=== PATIENT | female | born 1935 | race Caucasian/White ===

== ENCOUNTER → 2016-09-03 | Outpatient (CLI) | payer BC ==
[~2016-09-03] MED LIST: ACET-1256 PO; ALBU18002 INH; ALBU1AER9 INH; ALLO100T PO; ALLO1TAB51 PO; ALPPOPS5 TOP; AMX500 PO; ASPI-232 PO; CALC-393 PO; CALCTAB5 PO; CPR250 PO; CRG3125 PO; DVN80 PO; ESCI10TA17 PO; FERR1TAB23 PO; FRS/40 PO; HYDR-5688 PO; INSU1.2I SQ; LISI-461 PO; LISI40TA PO; MULT-506 PO; NRN600 PO; NVLGI/PEN SQ; OSTEO BI FLEX PO; OXGN; PANT40TA PO; SILD1TAB25 PO; SIMV40TA2 PO; SPRIN/30 INH; SYMIN160 INH; TIOTCAP INH; TRAM-10 PO; ZCR40 PO
[2016-09-04 06:14] LABS: ESTIMATED AVERAGE GLUCOSE 151 mg/dl; HA1C FLAG Normal (Normal)
== END | disposition home or self-care (01) ==
LOC: C.LAB1850 15:11
PROVIDERS: ATTEND Nurse Practitioner Family
DX: E11.29 Type 2 diabetes mellitus with other diabetic kidney complication (principal)

== ENCOUNTER → 2016-12-02 | Outpatient (CLI) | payer BC ==
[~2016-12-02] MED LIST changes: +CIPR250T5 PO; -CPR250 PO
[2016-12-02 14:35] LABS: ESTIMATED AVERAGE GLUCOSE 140 mg/dl; HA1C FLAG Normal (Normal)
== END | disposition home or self-care (01) ==
LOC: C.LAB1850 12:34
PROVIDERS: ATTEND Nurse Practitioner Family
DX: E11.3299 Type 2 diabetes mellitus with mild nonproliferative diabetic retinopathy without macular edema, unspecified eye (principal)

== ENCOUNTER → 2016-12-25 | Outpatient (CLI) | payer BC | END | disposition home or self-care (01) | LOC: C.MAMM 10:52 | PROVIDERS: ATTEND Internal Medicine | DX: S32.000A Wedge compression fracture of unspecified lumbar vertebra, initial encounter for closed fracture (principal); X58.XXXA Exposure to other specified factors, initial encounter ==

== ENCOUNTER → 2017-02-09 | Outpatient (CLI) | payer BC ==
[~2017-02-09] MED LIST changes: -ALBU18002 INH; -ALLO100T PO; -CALC-393 PO; -CIPR250T5 PO; -DVN80 PO; -LISI40TA PO; +OSTEO BI FLEX; -OSTEO BI FLEX PO; -SIMV40TA2 PO; -SPRIN/30 INH; -TRAM-10 PO
[2017-02-09 12:14] LABS: MEAN CELL VOLUME 95.9 fL (80-100); MEAN CORPUSCULAR HEMOGLOBIN 30.3 pg (25-34); MEAN CORPUSCULAR HGB CONC 31.6 g/dl (32-36); MEAN PLATELET VOLUME 10.7 fL (7.4-10.4); PLATELET COUNT 178 K/uL (130-400); RED BLOOD COUNT 3.86 M/uL (4.2-5.4); WHITE BLOOD COUNT 8.94 K/uL (4.8-10.8)
[2017-02-09 12:26] LABS: URINE APPEARANCE TURBID (CLEAR); URINE BILIRUBIN NEG (NEG); URINE COLOR YELLOW; URINE EPITHELIAL CELL AUTO >30 /lpf (0-5); URINE NITRITE NEG (NEG); URINE PH 7.5 (4.5-7.5); URINE SPECIFIC GRAVITY 1.014 (1.000-1.030); UROBILINOGEN NEG (NEG)
[2017-02-09 12:40] LABS: MANUAL MICROSCOPIC REQUIRED? NO; REVIEW REQ? YES
[2017-02-09 12:44] LABS: URINE PROTIEN/CREAT RATIO 0.3 (0-0.2); URINE TOTAL PROTEIN 21.1 mg/dl (0-11.9)
[2017-02-09 13:51] LABS: ALT/SGPT 31 U/L (12-78); BLOOD UREA NITROGEN 28 mg/dl (7-18); BUN/CREATININE RATIO 16.4 (10-20); CALCIUM 9.3 mg/dl (8.5-10.1); CARBON DIOXIDE 27 mmol/L (21-32); CHLORIDE 106 mmol/L (98-107); GLUCOSE 146 mg/dl (70-99); POTASSIUM 4.5 mmol/L (3.5-5.1); SODIUM 139 mmol/L (136-145)
[2017-02-09 13:54] LABS: ALKALINE PHOSPHATASE 77 U/L (45-117); FERRITIN 809.6 ng/ml (8.0-388.0); TOTAL IRON BINDING CAPACITY 299 mcg/dl (250-450)
[2017-02-09 13:55] LABS: AST/SGOT 19 U/L (15-37)
== END | disposition home or self-care (01) ==
LOC: C.LAB1850 10:50
PROVIDERS: ATTEND Internal Medicine Nephrology
DX: I12.9 Hypertensive chronic kidney disease with stage 1 through stage 4 chronic kidney disease, or unspecified chronic kidney disease (principal); I27.2 Other secondary pulmonary hypertension; N18.3 Chronic kidney disease, stage 3 (moderate); D64.9 Anemia, unspecified; E87.1 Hypo-osmolality and hyponatremia; R60.9 Edema, unspecified; E55.9 Vitamin D deficiency, unspecified

== ENCOUNTER 2017-02-14 14:45 | Inpatient (IN) | payer BC, OTHER ==
[~2017-02-14] VITALS: Ht 152.4 cm; Wt 76.3 kg
[~2017-02-14 14:45] MED LIST changes: -OSTEO BI FLEX; +OSTEO BI FLEX PO
[2017-02-14] MEDS ORDERED: SODIUM CHLORIDE 0.9% 1000ML 1,000 ML IV STA (15:27)
--- NOTE | 2017-02-14 16:27 | DIAGNOSTIC IMAGING REPORT ---
CT SCAN OF THE BRAIN WITHOUT IV CONTRAST CLINICAL HISTORY: Confusion. Change in mental status. Lethargy. COMPARISON STUDY: No priors. TECHNIQUE: Unenhanced axial CT scan of the brain is performed from the vertex to the skull base. CT DOSE: 537.48 mGy.cm FINDINGS: Brain parenchyma: There are age-related involutional changes noting mild to moderate patchy subcortical and periventricular microangiopathic change. There is no hemorrhage, mass effect, or evidence of acute territorial ischemia by CT criteria. Villegas-white matter is preserved. No extra-axial fluid collection is seen. Ventricles, sulci, cisterns: Prominent secondary to involutional change. Intracranial vasculature: There is atherosclerotic calcification of the cavernous carotid and vertebral arteries. Calvarium: Unremarkable. Sinuses and mastoids: The visualized paranasal sinuses are clear. The mastoid air cells are well pneumatized. Orbits: The bony orbits are grossly intact. IMPRESSION: There is no hemorrhage, mass effect, or evidence of acute territorial ischemia by CT criteria. Electronically signed by: Shaun Huddleston M.D. 02/14/2017 4:25 PM Dictated Date/Time: 02/14/2017 4:24 PM
[2017-02-14 16:43] LABS: BASO % 0.1 %; BASO ABS # 0.01 K/uL (0-0.2); COMPLETE YES; HEMATOCRIT 31.9 % (37-47); IG% 0.3 %; LYMPH % 4.9 %; LYMPH ABS # 0.74 K/uL (1.2-3.4); MEAN CELL VOLUME 94.1 fL (80-100); MEAN CORPUSCULAR HEMOGLOBIN 31.6 pg (25-34); MEAN CORPUSCULAR HGB CONC 33.5 g/dl (32-36); MEAN PLATELET VOLUME 11.1 fL (7.4-10.4); MONO % 7.2 %; NEUT % 87.5 %; PLATELET COUNT 120 K/uL (130-400); RED BLOOD COUNT 3.39 M/uL (4.2-5.4); WHITE BLOOD COUNT 15.06 K/uL (4.8-10.8)
--- NOTE | 2017-02-14 17:06 | DIAGNOSTIC IMAGING REPORT ---
TWO VIEW CHEST CLINICAL HISTORY: Cough and fever. FINDINGS: AP and lateral chest radiographs are compared to study dated 03/26/2016 and correlated with chest CT dated 11/05/2015. The AP view is degraded by apical lordotic positioning and patient rotation. The heart is enlarged and there is atherosclerotic calcification of the thoracic aorta. The pulmonary vasculature is noncongested. Chronic interstitial thickening is unchanged. There is mild bibasilar atelectasis. No airspace consolidation or pleural effusion is identified. There is no pneumothorax. The skeletal structures are osteopenic. The bony thorax appears intact. IMPRESSION: Cardiomegaly with no acute cardiopulmonary abnormality. Electronically signed by: Shaun Huddleston M.D. 02/14/2017 5:05 PM Dictated Date/Time: 02/14/2017 5:03 PM
[2017-02-14] MEDS ORDERED: TRAM-10 PO (17:13)
[2017-02-14] MEDS ORDERED: LISI40TA PO (17:17)
[2017-02-14 17:20] LABS: URINE APPEARANCE TURBID (CLEAR); URINE BILIRUBIN NEG (NEG); URINE COLOR YELLOW; URINE EPITHELIAL CELL AUTO >30 /lpf (0-5); URINE NITRITE NEG (NEG); URINE PH 6.5 (4.5-7.5); URINE SPECIFIC GRAVITY 1.014 (1.000-1.030); UROBILINOGEN NEG (NEG); ZZUR CULT IF INDIC CLEAN CATCH YES
[2017-02-14] MEDS ORDERED: ACETAMINOPHEN 500 MG TAB PO STA (17:20)
[2017-02-14 17:24] LABS: ALB/GLOB RATIO 0.8 (0.9-2); BUN/CREATININE RATIO 25.2 (10-20); CREATININE 2.2 mg/dl (0.60-1.20); MAGNESIUM 2.4 mg/dl (1.8-2.4); POTASSIUM 4.5 mmol/L (3.5-5.1); THYROID STIMULATING HORMONE 1.57 uIu/ml (0.300-4.500)
[2017-02-14] MEDS ORDERED: ALBU18002 INH (17:24)
[2017-02-14] MEDS ORDERED: ALLO100T PO (17:25)
[2017-02-14 17:27] LABS: MANUAL MICROSCOPIC REQUIRED? NO; REVIEW REQ? YES
[2017-02-14] MEDS ORDERED: CALC-393 PO (17:27)
[2017-02-14] MEDS ORDERED: PIPERACILLIN/TAZOBACTAM 3.375 GM/100ML D5W IV STA (17:28)
[2017-02-14] MEDS ORDERED: NRN600 PO (17:28)
[2017-02-14] MEDS ORDERED: ASPIRIN/ALUM/MAGNES/CAL CARB 325 MG TAB PO STA (17:29)
[2017-02-14] MEDS ORDERED: SIMV40TA2 PO (17:29)
[2017-02-14] MEDS ORDERED: SPRIN/30 INH (17:30)
[2017-02-14] MEDS ORDERED: NITROGLYCERIN 0.4 MG SL PER TAB CHARGE SL PRN (18:30)
[2017-02-14] MEDS ORDERED: MoRPHine SULFATE 2 MG/ML CARP IV PRN (18:30)
[2017-02-14] MEDS ORDERED: MoRPHine SULFATE 4 MG/ML 1 ML CARP\\VIAL IV PRN (18:30)
[2017-02-14] MEDS ORDERED: ALUMINUM/MAGNESIUM/SIMETH (MAALOX MAX) 30 ML UDC PO PRN (18:30)
[2017-02-14] MEDS ORDERED: OXYCODONE HCL IR 5 MG TAB (IMMEDIATE RELEASE) PO PRN (18:30)
[2017-02-14] MEDS ORDERED: MAGNESIUM HYDROXIDE SUSP 30 ML UDC PO PRN (18:30)
--- NOTE | 2017-02-14 18:58 | History and Physical ---
History & Physical Chief Complaint: Falling,Chills,Sometimes Warm,Shaking Primary Care Physician: Jeyson Peña M.D. History of Present Illness This patient presents with four-day history of feeling increasingly CVA tenderness, some foul-smelling urine, and some increasing weakness. The patient 's son visited her today and found to have shaking chills, brought her to the ER where she was found to have acute on chronic renal failure elevated troponin and abnormal urinalysis. This patient is a diabetic and her blood glucoses have been higher than usual for her but she has been covering them with her sliding scale instructions at home. The patient also has had increased wheezing for which she takes Symbicort and Spiriva. She's had no chest pain pressure or palpitations and no shortness of breath even though she is wheezing. In the ER she was given Zosyn for infection and gently hydrated for acute on chronic renal failure there are no acute changes on her EKG Past Medical/Surgical History Family history of heart disease and cancer Family History No pertinent family history Social History Smoking Status: Never Smoker Alcohol Use: none (surgeries as we have no neurosurgery) Marital Status: Housing status: lives alone Occupational Status: retired Immunizations History of Influenza Vaccine: Yes History of Tetanus Vaccine?: Yes History of Pneumococcal: Yes Pneumococcal Date: Aug 02, 2009 History of Hepatitis B Vaccine: No Multi-Drug Resistant Organisms History of MDRO: No Allergies Coded Allergies: Cephalosporins (Verified Allergy, Unknown, KEFLEX ALLERGY, 02/14/17) Sulfa Antibiotics (Verified Allergy, Unknown, TAKES AMARYL W/O REACTION, ) Thyroid (Verified Allergy, Unknown, "THYROID AGENTS", 02/14/17) Home Medications Scheduled Allopurinol (Zyloprim), 200 MG PO DAILY Amoxicillin (Amoxicillin), 4 TAB PO DIRECTED Aspirin (Aspir-81), 81 MG PO DAILY Budesonide/Formoterol Fumarate (Symbicort 160/4.5 Inhaler ), 2 PUFFS INH BID Calcium Carbonate (Calcium), 600 MG PO BID Carvedilol (Carvedilol), 3.125 MG PO BID Escitalopram (Lexapro), 10 MG PO Q2D Ferrous Sulfate (Iron), 650 MG PO BID Gabapentin (Gabapentin), 600 MG PO TID Home O2 Therapy (Oxygen), 2 LITERS NA HS Insulin Aspart (Novolog Flexpen), 10-15 UNITS SQ AC Insulin Glargine (Toujeo Solostar), 10-25 UNITS SQ HS Lisinopril (Zestril), 40 MG PO DAILY Multivitamin (Multivitamin), 1 TAB PO DAILY Pantoprazole (Protonix), 40 MG PO DAILY Simvastatin (Zocor), 40 MG PO DAILY Tiotropium [place] (Spiriva Handihaler), 1 CAP INH DAILY [Osteo Bi Flex], 1 TAB PO BID Scheduled PRN Acetaminophen (Tylenol), 500 MG PO BID PRN for Pain Albuterol Sulfate (Proair Respiclick), 2 PUFFS INH Q4H PRN for SOB/Wheezing Furosemide (Lasix), 40 MG PO DAILY PRN for EDEMA Tramadol (Ultram), 50 MG PO Q6 PRN for Pain Review of Systems ROS: well nourished well developed No double vision blurry vision No problems with speech or swallowing No palpitations, chest pain or pressure mild Wheezing but no persistent breathing problems, No abdominal pain but r ight CVA angle tenderness, nausea vomiting diarrhea changes in appetite or weight No burning urine urine frequency or changes in color No focal joint pain or muscle pain No skin rashes or oral lesions No unusual bruising or bleeding Chronic back pain or numbness or loss of strength No changes in memory or confusion as she is mild is mild Physical Exam Vital Signs Date Time Temp Pulse Resp B/P (MAP) Pulse Ox O2 Delivery O2 Flow Rate FiO2 02/14/17 17:56 78 20 131/49 96 Room Air 02/14/17 16:28 82 20 113/74 94 Room Air 02/14/17 16:07 83 02/14/17 14:54 36.7 94 20 136/60 98 General Appearance: WD/WN, + moderate distress Eyes: PERRL, EOMI Neck: supple, no JVD Respiratory/Chest: chest non-tender, lungs clear, normal breath sounds Cardiovascular: regular rate, rhythm, no murmur Abdomen/GI: normal bowel sounds, soft, + tenderness, + pertinent finding (cva tenderness right) Back: no muscle spasm, + right CVA tenderness Extremities/Musculoskelatal: no pedal edema, normal range of motion Neurologic/Psych: alert, oriented x 3 Skin: normal color, warm/dry, no rash Diagnostics Laboratory Results Results Past 24 Hours Test 02/14/17 15:56 02/14/17 17:00 Range/Units White Blood Count 15.06 4.8-10.8 K/uL Red Blood Count 3.39 4.2-5.4 M/uL Hemoglobin 10.7 12.0-16.0 g/dL Hematocrit 31.9 37-47 % Mean Corpuscular Volume 94.1 80-100 fL Mean Corpuscular Hemoglobin 31.6 25-34 pg Mean Corpuscular Hemoglobin Concent 33.5 32-36 g/dl Platelet Count 120 130-400 K/uL Mean Platelet Volume 11.1 7.4-10.4 fL Neutrophils (%) (Auto) 87.5 % Lymphocytes (%) (Auto) 4.9 % Monocytes (%) (Auto) 7.2 % Eosinophils (%) (Auto) 0.0 % Basophils (%) (Auto) 0.1 % Neutrophils # (Auto) 13.18 1.4-6.5 K/uL Lymphocytes # (Auto) 0.74 1.2-3.4 K/uL Monocytes # (Auto) 1.09 0.11-0.59 K/uL Eosinophils # (Auto) 0.00 0-0.5 K/uL Basophils # (Auto) 0.01 0-0.2 K/uL RDW Standard Deviation 46.6 36.4-46.3 fL RDW Coefficient of Variation 13.4 11.5-14.5 % Immature Granulocyte % (Auto) 0.3 % Immature Granulocyte # (Auto) 0.04 0.00-0.02 K/uL Sodium Level 132 136-145 mmol/L Potassium Level 4.5 3.5-5.1 mmol/L Chloride Level 99 98-107 mmol/L Carbon Dioxide Level 25 21-32 mmol/L Anion Gap 8.0 3-11 mmol/L Blood Urea Nitrogen 55 7-18 mg/dl Creatinine 2.20 0.60-1.20 mg/dl Est Creatinine Clear Calc Drug Dose 18.6 ml/min Estimated GFR () 23.4 Estimated GFR (Non- 20.2 BUN/Creatinine Ratio 25.2 10-20 Random Glucose 208 70-99 mg/dl Lactic Acid Level 1.6 0.4-2.0 mmol/L Calcium Level 9.0 8.5-10.1 mg/dl Magnesium Level 2.4 1.8-2.4 mg/dl Total Bilirubin 1.1 0.2-1 mg/dl Aspartate Amino Transf (AST/SGOT) 18 15-37 U/L Alanine Aminotransferase (ALT/SGPT) 25 12-78 U/L Alkaline Phosphatase 76 45-117 U/L Troponin I 0.119 0-0.045 ng/ml Pro-B-Type Natriuretic Peptide 8334 0-1800 pg/ml Total Protein 7.6 6.4-8.2 gm/dl Albumin 3.3 3.4-5.0 gm/dl Globulin 4.3 2.5-4.0 gm/dl Albumin/Globulin Ratio 0.8 0.9-2 Lipase 93 73-393 U/L Thyroid Stimulating Hormone (TSH) 1.570 0.300-4.500 uIu/ml Urine Color YELLOW Urine Appearance TURBID CLEAR Urine pH 6.5 4.5-7.5 Urine Specific [place] 1.014 1.000-1.030 Urine Protein 2+ NEG Urine Glucose (UA) NEG NEG Urine Ketones TRACE NEG Urine Occult Blood 2+ NEG Urine Nitrite NEG NEG Urine Bilirubin NEG NEG Urine Urobilinogen NEG NEG Urine Leukocyte Esterase LARGE NEG Urine WBC (Auto) >30 0-5 /hpf Urine RBC (Auto) 10-30 0-4 /hpf Urine Hyaline Casts (Auto) 5-10 0-5 /lpf Urine Epithelial Cells (Auto) >30 0-5 /lpf Urine Bacteria (Auto) 4+ NEG Urine Pathogenic Casts 0 /lpf Microbiology Results 02/14/17 Blood Culture, Received Pending 02/14/17 Blood Culture, Received Pending 02/14/17 Urine Culture, Received Pending CXR normal Normal EKG Impression Assessment and Plan 81-year-old female with acute on chronic renal failure, elevated troponin and a urinary tract infection present on admission Acute on chronic renal failure stage III patient will be hydrated with saline her normal diuretic will be held will also hold her lisinopril for 1 day using hydralazine if blood pressure control as needed for back up. For urinary tract infection present on admission she does have CVA angle pain we will get an ultrasound to look for pyelonephritis or perinephric changes which would change the duration of antibiotics Elevated troponin these will be trended and echo will be performed should remain the telemetry will continue aspirin and Coreg Zocor Insulin requiring diabetes she takes a range of Lantus at home will start with 15 each night with sliding scale and diabetic diet and A1c is pending for the morning We'll continue her Lexapro and Neurontin Heparin for DVT prevention Level of Care Telemetry VTE Prophylaxis VTE Risk Assessment Done? Y/N: Yes Risk Level: Moderate Given or contraindicated: Unfractionated heparin SQ
[2017-02-14 20:30] VITALS: BP 101/57; PULSE 71; TEMP 36.9; O2SAT 93; Ht 152.4 cm; Wt 76.3 kg
--- NOTE | 2017-02-14 20:38 | DIAGNOSTIC IMAGING REPORT ---
CT SCAN OF THE ABDOMEN AND PELVIS WITHOUT IV CONTRAST CLINICAL HISTORY: Urinary tract infection. COMPARISON STUDY: Renal ultrasound dated 11/09/2015. Chest CT dated 11/05/2015. MRI of the lumbar spine dated 06/27/2016. TECHNIQUE: CT scan of the abdomen and pelvis is performed from the lung bases to the proximal femora. Images are reviewed in the axial, sagittal, and coronal planes. IV contrast was not administered for this examination due to poor renal function. Note that the examination is suboptimal without IV contrast. The examination is also degraded by motion artifact. Automated dose control exposure was utilized. CT DOSE: 523.56 mGy.cm FINDINGS: Lung bases: The heart is enlarged and there is a small pericardial effusion. The coronary arteries and mitral annulus are densely calcified. The lung bases are clear. There is a small hiatal hernia. Liver: The unenhanced liver is normal in size, contour, and attenuation. There is no intrahepatic biliary ductal dilatation. Gallbladder: Unremarkable. Spleen: Normal in size and attenuation. Pancreas: The unenhanced pancreas is atrophic and grossly unremarkable. Adrenal glands: A 2.4 cm left adrenal nodule meets CT criteria for a fat-containing adenoma. The right adrenal gland is normal in appearance. Kidneys: The unenhanced kidneys are atrophic and without hydronephrosis. There are no renal calculi identified. There is no evidence of contour deforming renal mass lesion. There is right-sided perinephric stranding and trace fluid. Abdominal vasculature: The abdominal aorta is normal in course and caliber noting advanced atherosclerotic calcification. Bowel: The small bowel and colon are normal in course and caliber. There is moderate colonic diverticulosis without CT evidence of acute diverticulitis. The appendix is well-visualized and normal. Peritoneum: There is no intraperitoneal free air or abdominal ascites. There is a small fat-containing umbilical hernia. Lymphadenopathy: None. Pelvic viscera: Evaluation of the pelvis is degraded by streak artifact from a left hip arthroplasty. Gas is present within the bladder lumen, likely related to recent instrumentation. The bladder is otherwise normal as visualized. The uterus and adnexa are normal as imaged. Skeletal structures: The skeletal structures are osteopenic. There is a moderate chronic compression deformity of L5. Vertebral body height is otherwise maintained throughout the imaged spine. Lumbar sacral spondylosis is observed and there is degenerative change seen in the sacroiliac joints. No lytic or blastic lesions are seen. A left hip arthroplasty is noted. IMPRESSION: 1. Suboptimal examination without IV contrast. 2. There is left-sided perinephric stranding and fluid. No left-sided hydronephrosis is seen and no renal calculi are identified. This could represent ascending urinary tract infection/pyelonephritis or could be seen if there has been a recently passed kidney stone. Correlation with clinical findings and urinalysis will be required. 3. There is gas present within the bladder lumen. The bladder is otherwise normal in appearance. This could be related to recent instrumentation or possibly infection with a gas-forming organism. Again, correlation with clinical findings and urinalysis will be required. 4. Moderate colonic diverticulosis without CT evidence of acute diverticulitis. 5. Cardiomegaly and hiatal hernia. 6. Additional findings as above. Electronically signed by: Shaun Huddleston M.D. 02/14/2017 8:37 PM Dictated Date/Time: 02/14/2017 8:29 PM
[2017-02-14] MEDS ORDERED: GLUCOSE 10 TABS/TUBE PO PRN (21:00)
[2017-02-14] MEDS ORDERED: GLUCOSE 40% GEL 15 GM TUBE PO PRN (21:00)
[2017-02-14] MEDS ORDERED: PIPERACILL/TAZOBAC CONSULT ACTIVE PRN (21:00)
[2017-02-14] MEDS ORDERED: DEXTROSE 50% 50 ML SYR IV PRN (21:00)
[2017-02-14] MEDS ORDERED: GLUCAGON FOR INJ 1 MG VIAL SQ PRN (21:00)
[2017-02-14 21:07] LABS: PROTHROMBIN TIME (PATIENT) 10.9 SECONDS (9.0-12.0)
[2017-02-14] MEDS: SODIUM CHLORIDE 0.9% 1000ML 1,000 ML IV SCH (21:25)
[2017-02-14] MEDS: CARVEDILOL 3.125 MG TAB PO SCH (21:30)
[2017-02-14] MEDS: ESCITALOPRAM OXALATE 10 MG TAB PO SCH (21:31)
[2017-02-14] MEDS: GABAPENTIN 600 MG TAB PO SCH (21:31)
[2017-02-14] MEDS: BUDESONIDE/FORMOTEROL FUMARATE 160/4.5 60 PUFFS/INHALER INH SCH (21:31)
[2017-02-14] MEDS: INSULIN ASPART 100 UNITS/ML 3 ML PEN SC SCH (21:37)
[2017-02-14] MEDS: INSULIN GLARGINE SOLOSTAR 100 UNITS/ML 3 ML PEN SC SCH (21:40)
[2017-02-14] MEDS: PIPERACILL/TAZOBAC IV 3.375 GM in DEXTROSE 5% 100ML 100 ML IV SCH (23:50)
[2017-02-14] MEDS: ACETAMINOPHEN 325 MG TAB PO PRN (23:50)
[2017-02-14] MEDS: HEPARIN SOD 5000 UNIT/0.5 ML CARP SQ SCH (23:55)
[2017-02-15] VITALS (10 sets, daily range): BP systolic 93–134; BP diastolic 48–74; PULSE 71–90; TEMP 36.3–37.2; O2SAT 91–98
[2017-02-15] MEDS: SODIUM CHLORIDE 0.9% 1000ML 1,000 ML IV SCH ×2 (07:32→14:52)
[2017-02-15] MEDS: INSULIN ASPART 100 UNITS/ML 3 ML PEN SC SCH ×4 (07:37→21:00)
[2017-02-15] MEDS: HEPARIN SOD 5000 UNIT/0.5 ML CARP SQ SCH ×2 (07:38→21:59)
[2017-02-15] MEDS: CARVEDILOL 3.125 MG TAB PO SCH ×2 (09:00→21:55)
[2017-02-15] MEDS ORDERED: LISINOPRIL 40 MG TAB PO SCH (09:00)
--- NOTE | 2017-02-15 09:03 | DIAGNOSTIC IMAGING REPORT ---
EXAMINATION: RENAL ULTRASOUND CLINICAL HISTORY: Right flank pain COMPARISON STUDY: 11/09/2015 FINDINGS: The right kidney measures 10.8 cm. The left kidney measures 10.3 cm. There is no evidence of hydronephrosis. There are no renal masses. There is trace left-sided perinephric fluid. No bladder masses were visualized. Neither ureteral jet was identified. IMPRESSION : 1. No renal masses identified. No evidence of hydronephrosis 2. Trace left-sided perinephric fluid Electronically signed by: Slade Velázquez M.D. 02/15/2017 9:02 AM Dictated Date/Time: 02/15/2017 9:00 AM
[2017-02-15 09:06] LABS: HEMATOCRIT 26.6 % (37-47); MEAN CELL VOLUME 93.7 fL (80-100); MEAN CORPUSCULAR HEMOGLOBIN 31.3 pg (25-34); MEAN CORPUSCULAR HGB CONC 33.5 g/dl (32-36); PLATELET COUNT 105 K/uL (130-400); RED BLOOD COUNT 2.84 M/uL (4.2-5.4); WHITE BLOOD COUNT 11.68 K/uL (4.8-10.8)
[2017-02-15 09:09] LABS: BUN/CREATININE RATIO 23.6 (10-20); CALCIUM 7.8 mg/dl (8.5-10.1); CREATININE 2.2 mg/dl (0.60-1.20); POTASSIUM 4.1 mmol/L (3.5-5.1)
[2017-02-15] MEDS: BUDESONIDE/FORMOTEROL FUMARATE 160/4.5 60 PUFFS/INHALER INH SCH ×2 (09:10→21:55)
[2017-02-15] MEDS: ALLOPURINOL 100 MG TAB PO SCH (09:10)
[2017-02-15] MEDS: GABAPENTIN 600 MG TAB PO SCH ×3 (09:10→22:15)
[2017-02-15] MEDS: SIMVASTATIN 40 MG TAB PO SCH (09:10)
[2017-02-15] MEDS: PANTOprazole SOD 40 MG TAB PO SCH (09:10)
[2017-02-15] MEDS: TIOTROPIUM BROMIDE 5 PUFF/90 MCG INH INH SCH (09:10)
[2017-02-15] MEDS: ASPIRIN 81 MG ECTAB PO SCH (09:10)
[2017-02-15] MEDS: ACETAMINOPHEN 325 MG TAB PO PRN ×3 (09:43→21:55)
[2017-02-15] MEDS ORDERED: LEVOFLOXACIN / D5W 750 MG in PREMIXED IN D5W 150 ML IV ONE (10:00)
[2017-02-15] MEDS ORDERED: PERFLUTREN LIPID MICROSPHERE (DEFINITY) IV ONE (10:29)
[2017-02-15] MEDS: PIPERACILL/TAZOBAC IV 3.375 GM in DEXTROSE 5% 100ML 100 ML IV SCH (11:57)
[2017-02-15] MEDS: ONDANSETRON INJ 2 MG/ML 2 ML VIAL IV PRN (13:07)
--- NOTE | 2017-02-15 20:04 | Hospitalist Progress Note ---
Hospitalist Progress Note Date of Service Feb 15, 2017. Subjective Pt evaluation today including: conversation w/ patient, physical exam, chart review, lab review Voiding: no voiding problems Patient complains of shaking chills Constitutional: + see HPI, + fever, + chills All Other Systems: Reviewed and Negative Medications Medications (Trade) Dose Ordered Sig/[place] Route Start Time Stop Time Status Last Admin Dose Admin Allopurinol (Zyloprim Tab) 200 mg DAILY PO 02/15/17 09:00 03/17/17 08:59 02/15/17 09:10 200 MG Aspirin (Ecotrin Tab) 81 mg DAILY PO 02/15/17 09:00 03/17/17 08:59 02/15/17 09:10 81 MG Budesonide/ Formoterol Fumarate (Symbicort 160/ 4.5 Inh) 2 puffs BID INH 02/14/17 21:00 03/16/17 20:59 02/15/17 09:10 2 PUFFS Carvedilol (Coreg Tab) 3.125 mg BID PO 02/14/17 21:00 03/16/17 20:59 02/14/17 21:30 3.125 MG Gabapentin (Neurontin Tab) 600 mg TID PO 02/14/17 21:00 03/16/17 20:59 02/15/17 14:10 600 MG Pantoprazole Sodium (Protonix Tab) 40 mg DAILY PO 02/15/17 09:00 03/17/17 08:59 02/15/17 09:10 40 MG Simvastatin (Zocor Tab) 40 mg DAILY PO 02/15/17 09:00 03/17/17 08:59 02/15/17 09:10 40 MG Tiotropium [place] (Spiriva Handihaler Inhaler) 1 puff DAILY INH 02/15/17 09:00 03/17/17 08:59 02/15/17 09:10 1 PUFF Piperacillin Sod/ Tazobactam Sod 3.375 gm/Dextrose 115 ml @ 28.75 mls/ hr Q12@0000,1200 IV 02/15/17 00:00 02/20/17 00:00 02/15/17 11:57 28.75 MLS/HR Insulin Aspart (novoLOG ASPART) SLIDING SCALE PARAMETER ACHS SC 02/14/17 21:00 8/1/17 20:59 02/15/17 16:55 2 UNITS Heparin Sodium (Porcine) (Heparin Sq 5000 Unit/0.5ml) 5,000 unit Q12 SQ 02/14/17 21:00 03/16/17 20:59 02/15/17 07:38 5,000 UNIT Insulin Glargine (Lantus Solostar Pen) 15 units PM SC 02/14/17 21:00 03/16/17 20:59 02/14/17 21:40 15 UNITS Levofloxacin 750 mg/Prmx 150 ml @ 100 mls/hr 1000 ONCE IV 02/15/17 10:00 02/15/17 11:29 DC 02/15/17 10:04 100 MLS/HR Perflutren Lipid Microsphere (Definity) 2 ml ONE ONCE IV 02/15/17 10:29 02/15/17 10:30 DC 02/15/17 10:30 2 ML Objective Vital Signs Date Time Temp Pulse Resp B/P (MAP) Pulse Ox O2 Delivery O2 Flow Rate FiO2 02/15/17 16:00 Nasal Cannula 2.0 02/15/17 15:11 36.8 71 20 93/50 (64) 97 Nasal Cannula 2.0 02/15/17 12:00 Room Air 02/15/17 11:48 36.3 84 18 134/74 (94) 91 Room Air 02/15/17 10:03 121/71 (88) 02/15/17 08:00 Room Air 02/15/17 07:58 36.4 72 18 98/48 (65) 91 Room Air 02/15/17 04:00 Nasal Cannula 2.0 02/15/17 04:00 37.1 77 18 102/55 (71) 96 Nasal Cannula 2.0 02/15/17 01:10 97 Nasal Cannula 2.0 02/15/17 01:04 36.7 02/15/17 00:00 36.7 77 24 121/54 (76) 97 Nasal Cannula 2.0 02/14/17 23:59 Nasal Cannula 2.0 02/14/17 20:30 36.9 71 101/57 93 Room Air 02/14/17 20:09 74 20 94/49 94 Room Air Physical Exam General Appearance: no apparent distress Eyes: normal inspection ENT: hearing grossly normal Neck: supple Respiratory/Chest: lungs clear Cardiovascular: regular rate, rhythm, no edema Abdomen: normal bowel sounds, + pertinent finding (right CVA tenderness) Extremities: non-tender Laboratory Results Last 24 Hours Test 02/14/17 20:45 02/15/17 01:20 02/15/17 07:11 02/15/17 08:21 Bedside Glucose 183 mg/dl 184 mg/dl Troponin I 0.081 ng/ml 0.095 ng/ml White Blood Count 11.68 K/uL Red Blood Count 2.84 M/uL Hemoglobin 8.9 g/dL Hematocrit 26.6 % Mean Corpuscular Volume 93.7 fL Mean Corpuscular Hemoglobin 31.3 pg Mean Corpuscular Hemoglobin Concent 33.5 g/dl RDW Standard Deviation 46.8 fL RDW Coefficient of Variation 13.5 % Platelet Count 105 K/uL Mean Platelet Volume 11.0 fL Sodium Level 133 mmol/L Potassium Level 4.1 mmol/L Chloride Level 102 mmol/L Carbon Dioxide Level 21 mmol/L Anion Gap 10.0 mmol/L Blood Urea Nitrogen 52 mg/dl Creatinine 2.20 mg/dl Est Creatinine Clear Calc Drug Dose 17.6 ml/min Estimated GFR () 23.4 Estimated GFR (Non- 20.2 BUN/Creatinine Ratio 23.6 Random Glucose 227 mg/dl Calcium Level 7.8 mg/dl Test 02/15/17 11:19 02/15/17 16:46 Bedside Glucose 214 mg/dl 146 mg/dl Assessment and Plan 81-year-old female with acute on chronic renal failure, elevated troponin and a urinary tract infection present on admission now with pyelonephritis 1. Pyelonephritis will add Levaquin double cover gram-negative Levaquin will be renally dosed discussed with pharmacy 2. Acute on chronic renal failure stage III patient will be hydrated with saline her normal diuretic will be held will also hold her lisinopril and follow BUN/creatinine creatinine 3. Elevated troponin these will be trended and echo will be performed should remain the telemetry will continue aspirin and Coreg Zocor 4. Insulin requiring diabetes she takes a range of Lantus at home will start with 15 each night with sliding scale and diabetic diet 5. Heparin for DVT prevention Continued [facility] stay due to: multiple IV medications needed Discharge planning: uncertain
--- NOTE | 2017-02-15 20:20 | ECHOCARDIOGRAM REPORT ---
*NOTICE TO RECEIVING LIBERTARIAN AGENCY This information is strictly Confidential and protected under [place] law. [place] law prohibits you from making any further disclosure of this information unless further disclosure is expressly permitted by the written consent of the person to whom it pertains or is authorized by law. A general authorization for the release of medical or other information is not sufficient for this purpose. Hospital accepts no responsibility if the information is made available to any other person, INCLUDING THE PATIENT. Interpretation Summary * Name: MARCK BLACKWELL Study Date: 02/15/2017 10:01 AM BP: 102/55 mmHg * Patient Location: .2E\S\E203\S\1 HR: 81 * : 1935 (M/d/yyyy) Gender: Female Height: 63 in * Age: 81 yrs Ethnicity: [place] Weight: 156 lb * Ordering Physician: Devaughn Pickett * Performed By: Arielle Bustos * * Reason For Study: ELEVATED TROP * BSA: 1.7 m2 * Normal biventricular systolic function. * Mild biventricular hypertrophy. * Moderate biatrial dilatation. * Moderate to severe tricuspid regurgitation. * Severe pulmonary hypertension. * Trace mitral and pulmonic regurgitation. * Elevated central venous pressure. * -- Conclusions -- * Aortic valve sclerosis moderate, without significant aortic valvular stenosis. Procedure Details * A complete two-dimensional transthoracic echocardiogram was performed (2D, M-mode, Doppler and color flow Doppler). * A contrast injection of Definity was performed to improve assessment of LV function. * Contrast was injected into an intravenous site in the left arm. * One vial of Definity ultrasound contrast was diluted in normal saline to a total volume of 10 ml. A total of '2' ml of solution was administered during imaging. * Lot # [id number] of Definity utilized for procedure. * Expiration date 04/02. Left Ventricle * The left ventricle is normal in size. * There is mild concentric left ventricular hypertrophy. * Ejection Fraction = 60-65%. * Left ventricular systolic function is normal. * A full diastolic examination was done with clinical findings of Class II diastolic dysfunction. * The left ventricular wall motion is normal. Right Ventricle * The right ventricle is normal in size and function. * There is mild right ventricular hypertrophy. Atria * The left atrium is moderately dilated. * The right atrium is moderately dilated. * No ASD detected; PFO is not assessed. Mitral Valve * There is severe mitral annular calcification. * No significant mitral valve stenosis. * There is trace mitral regurgitation. Tricuspid Valve * The tricuspid valve is not well visualized, but is grossly normal. * There is no tricuspid stenosis. * There is moderate to severe tricuspid regurgitation. * Right ventricular systolic pressure is elevated at >60mmHg. Aortic Valve * The aortic valve is trileaflet. * Aortic valve sclerosis moderate, without significant aortic valvular stenosis. * No aortic regurgitation is present. Pulmonic Valve * The pulmonary valve is inadequately visualized, but the Doppler data is adequate for interpretation. * There is no pulmonic valvular stenosis. * Trace pulmonic valvular regurgitation. Great Vessels * The aortic root is normal size. Pericardium/Pleural * There is no pericardial effusion. Great Vessels * The inferior vena cava is mildly dilated. MMode 2D Measurements and Calculations IVSd 1.3 cm IVSs 1.6 cm LVIDd 3.6 cm LVIDs 2.3 cm LVPWd 1.3 cm LVPWs 2.6 cm IVS/LVPW 10 FS 35.2 % EDV(Teich) 54.5 ml ESV(Teich) 18.8 ml EF(Teich) 65.5 % EDV(cubed) 46.8 ml ESV(cubed) 12.7 ml EF(cubed) 72.8 % % IVS thick 23.9 % % LVPW thick 97.8 % LV mass(C)d 163.9 grams LV mass(C)dI 94.2 grams/m\S\2 LV mass(C)s 226.9 grams LV mass(C)sI 130.4 grams/m\S\2 CO(Teich) 2.8 l/min CI(Teich) 1.6 l/min/m\S\2 SV(Teich) 35.7 ml SI(Teich) 20.5 ml/m\S\2 CO(cubed) 2.7 l/min CI(cubed) 1.5 l/min/m\S\2 SV(cubed) 34.1 ml SI(cubed) 19.6 ml/m\S\2 Ao root diam 3.4 cm Ao root area 9.1 cm\S\2 ACS 1.1 cm LA dimension 4.6 cm asc Aorta Diam 2.9 cm LA/Ao 1.3 LVAd ap4 16.9 cm\S\2 LVLd ap4 6.3 cm EDV(MOD-sp4) 37.5 ml LVAs ap4 9.7 cm\S\2 LVLs ap4 5.8 cm ESV(MOD-sp4) 13.7 ml EF(MOD-sp4) 63.5 % CO(MOD-sp4) 1.9 l/min CI(MOD-sp4) 1.1 l/min/m\S\2 SV(MOD-sp4) 23.8 ml SI(MOD-sp4) 13.7 ml/m\S\2 Doppler Measurements and Calculations MV E max elza 165.7 cm/sec MV A max elza 134.6 cm/sec MV E/A 1.2 MV V2 max 187.3 cm/sec MV max PG 14.0 mmHg MV V2 mean 107.9 cm/sec MV mean PG 5.5 mmHg MV V2 VTI 61.5 cm MV dec time 0.27 sec Ao V2 max 135.5 cm/sec Ao max PG 7.3 mmHg Ao max PG (full) 3.0 mmHg LV V1 max PG 4.4 mmHg LV V1 max 104.5 cm/sec PA V2 max 67.4 cm/sec PA max PG 1.8 mmHg TR max elza 395.8 cm/sec
[2017-02-15] MEDS: INSULIN GLARGINE SOLOSTAR 100 UNITS/ML 3 ML PEN SC SCH (22:00)
[2017-02-16] VITALS (8 sets, daily range): BP systolic 98–145; BP diastolic 52–72; PULSE 65–82; TEMP 36.4–36.6; O2SAT 95–99
[2017-02-16] MEDS: PIPERACILL/TAZOBAC IV 3.375 GM in DEXTROSE 5% 100ML 100 ML IV SCH ×2 (00:15→11:33)
[2017-02-16] MEDS: SODIUM CHLORIDE 0.9% 1000ML 1,000 ML IV SCH ×2 (00:15→09:47)
[2017-02-16 06:11] LABS: EOS % 1.2 %; HEMATOCRIT 26.5 % (37-47); IG% 0.3 %; LYMPH % 7.7 %; LYMPH ABS # 0.71 K/uL (1.2-3.4); MEAN CELL VOLUME 93.6 fL (80-100); MEAN CORPUSCULAR HEMOGLOBIN 31.1 pg (25-34); MEAN CORPUSCULAR HGB CONC 33.2 g/dl (32-36); MEAN PLATELET VOLUME 11.3 fL (7.4-10.4); MONO % 9.2 %; NEUT % 81.6 %; PLATELET COUNT 104 K/uL (130-400); RED BLOOD COUNT 2.83 M/uL (4.2-5.4)
[2017-02-16 06:46] LABS: COMPLETE YES; TOXIC GRANULATION 1+
[2017-02-16 06:52] LABS: BUN/CREATININE RATIO 21.9 (10-20); CALCIUM 8.2 mg/dl (8.5-10.1); CREATININE 1.9 mg/dl (0.60-1.20); POTASSIUM 4.1 mmol/L (3.5-5.1)
[2017-02-16] MEDS: INSULIN ASPART 100 UNITS/ML 3 ML PEN SC SCH ×3 (07:27→17:16)
[2017-02-16] MEDS: HEPARIN SOD 5000 UNIT/0.5 ML CARP SQ SCH ×2 (07:28→20:36)
[2017-02-16] MEDS: BUDESONIDE/FORMOTEROL FUMARATE 160/4.5 60 PUFFS/INHALER INH SCH ×2 (08:24→20:35)
[2017-02-16] MEDS: ALLOPURINOL 100 MG TAB PO SCH (08:25)
[2017-02-16] MEDS: PANTOprazole SOD 40 MG TAB PO SCH (08:25)
[2017-02-16] MEDS: ESCITALOPRAM OXALATE 10 MG TAB PO SCH (08:25)
[2017-02-16] MEDS: ASPIRIN 81 MG ECTAB PO SCH (08:25)
[2017-02-16] MEDS: SIMVASTATIN 40 MG TAB PO SCH (08:25)
[2017-02-16] MEDS: CARVEDILOL 3.125 MG TAB PO SCH ×2 (08:25→20:35)
[2017-02-16] MEDS: TIOTROPIUM BROMIDE 5 PUFF/90 MCG INH INH SCH (08:25)
[2017-02-16] MEDS: GABAPENTIN 600 MG TAB PO SCH ×3 (08:26→20:36)
[2017-02-16] MEDS: ACETAMINOPHEN 325 MG TAB PO PRN (11:30)
[2017-02-16] MEDS: ONDANSETRON INJ 2 MG/ML 2 ML VIAL IV PRN (13:17)
[2017-02-16] MEDS: TRAMADOL HCL 50 MG TAB PO PRN (13:18)
[2017-02-16] MEDS ORDERED: NURSING VERBAL MED ORDER ONE (15:00)
[2017-02-16] MEDS: CEFTRIAXONE SOD INJ 2000 MG in DEXTROSE 5% 50ML IV SCH (15:52)
[2017-02-16] MEDS ORDERED: PROCHLORPERAZINE INJ 5 MG in SYRINGE 4 ML IV PRN (17:15)
--- NOTE | 2017-02-16 20:23 | Hospitalist Progress Note ---
Hospitalist Progress Note Date of Service Feb 16, 2017. Subjective Pt evaluation today including: conversation w/ patient, conversation w/ family , physical exam, chart review, lab review, conversation w/ program evaluation consultant Pain: CVA tenderness greatly diminished patient with no complaints Objective Vital Signs Date Time Temp Pulse Resp B/P (MAP) Pulse Ox O2 Delivery O2 Flow Rate FiO2 02/16/17 16:00 Nasal Cannula 2.0 02/16/17 15:14 36.4 65 18 113/63 (80) 97 Nasal Cannula 2.0 02/16/17 12:03 36.5 82 18 114/72 (86) 97 Nasal Cannula 2.0 02/16/17 12:00 97 Nasal Cannula 2.0 02/16/17 08:11 36.4 72 18 131/68 (89) 95 Nasal Cannula 2.0 02/16/17 08:00 95 Nasal Cannula 2.0 02/16/17 04:30 36.6 70 19 98/52 (67) 97 Nasal Cannula 2.0 02/16/17 04:10 Nasal Cannula 2.0 02/16/17 00:15 Nasal Cannula 2.0 02/15/17 23:04 37.2 90 20 125/54 (77) 96 Nasal Cannula 2.0 Physical Exam General Appearance: WD/WN, no apparent distress Neck: supple Respiratory/Chest: chest non-tender Cardiovascular: regular rate, rhythm Abdomen: normal bowel sounds Extremities: normal range of motion Neurologic/Psychiatric: oriented x 3 Laboratory Results Last 24 Hours Test 02/15/17 20:36 02/16/17 05:36 02/16/17 06:32 02/16/17 11:12 Bedside Glucose 144 mg/dl 153 mg/dl 189 mg/dl White Blood Count 9.20 K/uL Red Blood Count 2.83 M/uL Hemoglobin 8.8 g/dL Hematocrit 26.5 % Mean Corpuscular Volume 93.6 fL Mean Corpuscular Hemoglobin 31.1 pg Mean Corpuscular Hemoglobin Concent 33.2 g/dl Platelet Count 104 K/uL Mean Platelet Volume 11.3 fL Neutrophils (%) (Auto) 81.6 % Lymphocytes (%) (Auto) 7.7 % Monocytes (%) (Auto) 9.2 % Eosinophils (%) (Auto) 1.2 % Basophils (%) (Auto) 0.0 % Neutrophils # (Auto) 7.50 K/uL Lymphocytes # (Auto) 0.71 K/uL Monocytes # (Auto) 0.85 K/uL Eosinophils # (Auto) 0.11 K/uL Basophils # (Auto) 0.00 K/uL RDW Standard Deviation 46.8 fL RDW Coefficient of Variation 13.5 % Immature Granulocyte % (Auto) 0.3 % Immature Granulocyte # (Auto) 0.03 K/uL Toxic Granulation 1+ Sodium Level 131 mmol/L Potassium Level 4.1 mmol/L Chloride Level 104 mmol/L Carbon Dioxide Level 19 mmol/L Anion Gap 8.0 mmol/L Blood Urea Nitrogen 42 mg/dl Creatinine 1.90 mg/dl Est Creatinine Clear Calc Drug Dose 20.6 ml/min Estimated GFR () 28.0 Estimated GFR (Non- 24.1 BUN/Creatinine Ratio 21.9 Random Glucose 138 mg/dl Calcium Level 8.2 mg/dl Test 02/16/17 16:07 02/16/17 19:50 Bedside Glucose 216 mg/dl 199 mg/dl Assessment and Plan 81-year-old female with acute on chronic renal failure, elevated troponin and a urinary tract infection present on admission now with pyelonephritis 1. Pyelonephritis pansensitive Escherichia coli is now growing discussed with pharmacy and will change to Rocephin 2 g daily discontinue Zosyn and Levaquin. 2. Acute on chronic renal failure stage III patient will be hydrated with saline her normal diuretic will be held will also hold her lisinopril and follow BUN/creatinine creatinine Continue to follow BUN/creatinine 3. Elevated troponin these will be trended and echo will be performed should remain the telemetry will continue aspirin and Coreg Zocor 4. Insulin requiring diabetes she takes a range of Lantus at home will start with 15 each night with sliding scale and diabetic diet 5. Heparin for DVT prevention Continued [facility] stay due to: multiple IV medications needed Discharge planning: uncertain
[2017-02-17] VITALS (9 sets, daily range): BP systolic 113–147; BP diastolic 58–85; PULSE 66–90; TEMP 36.4–36.8; O2SAT 93–99
[2017-02-17] MEDS: INSULIN GLARGINE SOLOSTAR 100 UNITS/ML 3 ML PEN SC SCH ×2 (00:09→20:19)
[2017-02-17] MEDS: INSULIN ASPART 100 UNITS/ML 3 ML PEN SC SCH ×5 (00:10→20:19)
[2017-02-17 07:26] LABS: HEMATOCRIT 24.5 % (37-47); MEAN CELL VOLUME 92.5 fL (80-100); MEAN CORPUSCULAR HEMOGLOBIN 31.3 pg (25-34); MEAN CORPUSCULAR HGB CONC 33.9 g/dl (32-36); MEAN PLATELET VOLUME 10.7 fL (7.4-10.4); PLATELET COUNT 119 K/uL (130-400); RED BLOOD COUNT 2.65 M/uL (4.2-5.4); WHITE BLOOD COUNT 7.68 K/uL (4.8-10.8)
[2017-02-17] MEDS: HEPARIN SOD 5000 UNIT/0.5 ML CARP SQ SCH ×2 (07:33→20:20)
[2017-02-17] MEDS: TIOTROPIUM BROMIDE 5 PUFF/90 MCG INH INH SCH (07:37)
[2017-02-17] MEDS: BUDESONIDE/FORMOTEROL FUMARATE 160/4.5 60 PUFFS/INHALER INH SCH ×2 (07:39→20:17)
[2017-02-17] MEDS: CARVEDILOL 3.125 MG TAB PO SCH ×2 (07:40→20:17)
[2017-02-17] MEDS: SIMVASTATIN 40 MG TAB PO SCH (07:42)
[2017-02-17] MEDS: ASPIRIN 81 MG ECTAB PO SCH (07:42)
[2017-02-17] MEDS: ALLOPURINOL 100 MG TAB PO SCH (07:42)
[2017-02-17] MEDS: GABAPENTIN 600 MG TAB PO SCH ×3 (07:43→20:17)
[2017-02-17] MEDS: PANTOprazole SOD 40 MG TAB PO SCH (07:44)
[2017-02-17 07:57] LABS: BUN/CREATININE RATIO 18.6 (10-20); CALCIUM 8.6 mg/dl (8.5-10.1); CREATININE 1.6 mg/dl (0.60-1.20)
[2017-02-17] MEDS ORDERED: LEVOFLOXACIN 500MG / D5W IV SCH (10:00)
[2017-02-17] MEDS: ACETAMINOPHEN 325 MG TAB PO PRN (11:49)
[2017-02-17] MEDS: CEFTRIAXONE SOD INJ 2000 MG in DEXTROSE 5% 50ML IV SCH (15:57)
--- NOTE | 2017-02-17 17:02 | Hospitalist Progress Note ---
Hospitalist Progress Note Date of Service Feb 17, 2017. Subjective Pt evaluation today including: conversation w/ patient, chart review, lab review Voiding: no voiding problems Objective Vital Signs Date Time Temp Pulse Resp B/P (MAP) Pulse Ox O2 Delivery O2 Flow Rate FiO2 02/17/17 16:00 Room Air 02/17/17 15:50 36.4 70 18 137/74 (95) 93 Room Air 02/17/17 12:23 36.8 72 18 121/63 (82) 98 02/17/17 12:00 98 Room Air 02/17/17 09:56 90 94 02/17/17 08:00 98 Room Air 02/17/17 07:53 36.8 72 18 120/58 (78) 98 02/17/17 04:00 Nasal Cannula 2.0 02/17/17 03:47 36.4 66 18 113/58 (76) 99 Nasal Cannula 2.0 02/16/17 23:59 Nasal Cannula 2.0 02/16/17 23:04 36.5 66 19 144/68 (93) 99 Nasal Cannula 2.0 02/16/17 20:00 Nasal Cannula 2.0 02/16/17 18:49 36.4 66 24 145/71 (95) 99 Nasal Cannula 2.0 Physical Exam General Appearance: WD/WN Eyes: normal inspection ENT: hearing grossly normal Neck: supple Respiratory/Chest: chest non-tender, lungs clear Cardiovascular: regular rate, rhythm, no edema Abdomen: normal bowel sounds, non tender Extremities: non-tender, normal inspection Neurologic/Psychiatric: oriented x 3 Skin: normal color Laboratory Results Last 24 Hours Test 02/16/17 19:50 02/17/17 00:00 02/17/17 06:16 02/17/17 06:58 Bedside Glucose 199 mg/dl 187 mg/dl 151 mg/dl White Blood Count 7.68 K/uL Red Blood Count 2.65 M/uL Hemoglobin 8.3 g/dL Hematocrit 24.5 % Mean Corpuscular Volume 92.5 fL Mean Corpuscular Hemoglobin 31.3 pg Mean Corpuscular Hemoglobin Concent 33.9 g/dl RDW Standard Deviation 45.5 fL RDW Coefficient of Variation 13.5 % Platelet Count 119 K/uL Mean Platelet Volume 10.7 fL Sodium Level 133 mmol/L Potassium Level 4.0 mmol/L Chloride Level 103 mmol/L Carbon Dioxide Level 20 mmol/L Anion Gap 10.0 mmol/L Blood Urea Nitrogen 30 mg/dl Creatinine 1.60 mg/dl Est Creatinine Clear Calc Drug Dose 24.9 ml/min Estimated GFR () 34.4 Estimated GFR (Non- 29.7 BUN/Creatinine Ratio 18.6 Random Glucose 138 mg/dl Calcium Level 8.6 mg/dl Test 02/17/17 08:50 02/17/17 11:33 02/17/17 13:13 02/17/17 16:13 Troponin I < 0.015 ng/ml 0.020 ng/ml Bedside Glucose 192 mg/dl Assessment and Plan 81-year-old female with acute on chronic renal failure, elevated troponin and a urinary tract infection present on admission now with pyelonephritis 1. Pyelonephritis pansensitive Escherichia coli is now growing discussed with pharmacy and will change to Rocephin 2 g daily continue present management 2. Acute on chronic renal failure stage III patient will be hydrated with saline her normal diuretic will be held will also hold her lisinopril and follow BUN/creatinine creatinine Continue to follow BUN/creatinine 3. Elevated troponin these will be trended and echo will be performed should remain the telemetry will continue aspirin and Coreg Zocor EF is normal 4. Insulin requiring diabetes she takes a range of Lantus at home will start with 15 each night with sliding scale and diabetic diet 5. Heparin for DVT prevention Continued [facility] stay due to: multiple IV medications needed Discharge planning: uncertain
[2017-02-17] MEDS: TRAMADOL HCL 50 MG TAB PO PRN (23:53)
[2017-02-18] VITALS (7 sets, daily range): BP systolic 126–158; BP diastolic 64–74; PULSE 65–90; TEMP 36.5–37; O2SAT 94–100
[2017-02-18 07:06] LABS: CALCIUM 8.8 mg/dl (8.5-10.1); CREATININE 1.6 mg/dl (0.60-1.20); POTASSIUM 3.7 mmol/L (3.5-5.1)
[2017-02-18] MEDS: TIOTROPIUM BROMIDE 5 PUFF/90 MCG INH INH SCH (08:28)
[2017-02-18] MEDS: GABAPENTIN 600 MG TAB PO SCH ×3 (08:28→19:59)
[2017-02-18] MEDS: CARVEDILOL 3.125 MG TAB PO SCH ×2 (08:28→19:59)
[2017-02-18] MEDS: PANTOprazole SOD 40 MG TAB PO SCH (08:29)
[2017-02-18] MEDS: SIMVASTATIN 40 MG TAB PO SCH (08:29)
[2017-02-18] MEDS: ALLOPURINOL 100 MG TAB PO SCH (08:29)
[2017-02-18] MEDS: ASPIRIN 81 MG ECTAB PO SCH (08:29)
[2017-02-18] MEDS: ESCITALOPRAM OXALATE 10 MG TAB PO SCH (08:29)
[2017-02-18] MEDS: BUDESONIDE/FORMOTEROL FUMARATE 160/4.5 60 PUFFS/INHALER INH SCH ×2 (08:30→20:00)
[2017-02-18] MEDS: HEPARIN SOD 5000 UNIT/0.5 ML CARP SQ SCH ×2 (08:33→21:11)
[2017-02-18] MEDS: INSULIN ASPART 100 UNITS/ML 3 ML PEN SC SCH ×4 (08:33→21:11)
[2017-02-18] MEDS ORDERED: NURSING VERBAL MED ORDER ONE (13:45)
[2017-02-18] MEDS: LIDODERM (LIDOCAINE) PATCH 5% TD SCH (15:36)
[2017-02-18] MEDS: CEFTRIAXONE SOD INJ 2000 MG in DEXTROSE 5% 50ML IV SCH (15:37)
--- NOTE | 2017-02-18 19:28 | Cardiology Consultation ---
Cardiology Consultation Date of Consultation: Feb 18, 2017. Reason for Consultation: Dyspnea. Elevated troponin Pt evaluation today including: conversation w/ patient, physical exam, chart review, lab review, review of studies, conversation w/ attending History of Present Illness The patient is an 81-year-old woman who recently experienced the relatively acute onset of subjective fevers and chills. Patient states that she felt the symptoms over the course of 24 hours. This was also associated with some mild right flank discomfort and some foul-smelling urine. Patient did have an element of dyspnea associated with this event. She has chronic dyspnea which appear to worsen slightly at the onset of the symptoms. He had some mild abdominal discomfort. She has not had symptoms of chest discomfort. Patient was evaluated at [facility] and found to have evidence of a urinary tract infection. She did have elevated N terminal proBNP as well as cardiac biomarkers. She was admitted and started on antibiotic therapy with some improvement in her symptoms. At the time of this interview the patient claims to be feeling well. She never feels great, but is certainly improved from the time of admission. She states that her flank pain has resolved. She no longer has subjective chills. She has been tolerating a regular diet. She denies the presence of chest discomfort. Her breathing is improved. She has been ambulating around the [place] with minimal dyspnea. In general she is able to ambulate short distances with a walker. She is limited both by back discomfort as well as exertional dyspnea. She is not describe orthopnea or paroxysmal nocturnal dyspnea recently she has not noticed any swelling in her lower extremities. Past Medical/Surgical History Gastroesophageal reflux disease Central retinal artery occlusion Diastolic heart failure Pulmonary hypertension COPD Diabetes mellitus Depression Osteoarthritis Spinal stenosis Past surgical history Temporal artery biopsy Cataracts Dilatation and curettage Total hip replacement Family History No pertinent family history Social History Smoking Status: Never Smoker History of Alcohol Use: No Review of Systems Constitutional: + see HPI Respiratory: + see HPI Cardiac: + see HPI Abdomen: + see HPI Female : + see HPI Neurologic: + see HPI Heme: + see HPI Endo: + see HPI Skin: + see HPI All Other Systems: Reviewed and Negative Allergies Coded Allergies: Sulfa Antibiotics (Verified Allergy, Severe, ANAPHYLAXIS; TAKES AMARYL W/ O REACTION, 02/16/17) Thyroid (Verified Allergy, Unknown, "THYROID AGENTS", 02/14/17) Cephalosporins (Verified Adverse Reaction, Unknown, KEFLEX ALLERGY -NAUSEA , 02/16/17) Medications Current Inpatient Medications Medications (Trade) Dose Ordered Sig/[place] Route Start Time Stop Time Status Last Admin Dose Admin Allopurinol (Zyloprim Tab) 200 mg DAILY PO 02/15/17 09:00 03/17/17 08:59 02/18/17 08:29 200 MG Aspirin (Ecotrin Tab) 81 mg DAILY PO 02/15/17 09:00 03/17/17 08:59 02/18/17 08:29 81 MG Budesonide/ Formoterol Fumarate (Symbicort 160/ 4.5 Inh) 2 puffs BID INH 02/14/17 21:00 03/16/17 20:59 02/18/17 08:30 2 PUFFS Carvedilol (Coreg Tab) 3.125 mg BID PO 02/14/17 21:00 03/16/17 20:59 02/18/17 08:28 3.125 MG Escitalopram Oxalate (Lexapro Tab) 10 mg Q2D@0900 PO 02/14/17 18:30 03/16/17 18:29 02/18/17 08:29 10 MG Gabapentin (Neurontin Tab) 600 mg TID PO 02/14/17 21:00 03/16/17 20:59 02/18/17 13:51 600 MG Pantoprazole Sodium (Protonix Tab) 40 mg DAILY PO 02/15/17 09:00 03/17/17 08:59 02/18/17 08:29 40 MG Simvastatin (Zocor Tab) 40 mg DAILY PO 02/15/17 09:00 03/17/17 08:59 02/18/17 08:29 40 MG Tiotropium [place] (Spiriva Handihaler Inhaler) 1 puff DAILY INH 02/15/17 09:00 03/17/17 08:59 02/18/17 08:28 1 PUFF Tramadol HCl (Ultram Tab) 50 mg Q6 PRN PO 02/14/17 18:30 03/16/17 18:29 02/17/17 23:53 50 MG Oxycodone HCl (Roxicodone Immediate Rel Tab) 10 mg Q6 PRN PO 02/14/17 18:30 02/28/17 18:29 02/16/17 01:10 5 MG Morphine Sulfate (MoRPHine SULFATE INJ) 4 mg Q4H PRN IV 02/14/17 18:30 02/28/17 18:29 Morphine Sulfate (MoRPHine SULFATE INJ) 2 mg Q4H PRN IV 02/14/17 18:30 02/28/17 18:29 Insulin Aspart (novoLOG ASPART) SLIDING SCALE PARAMETER ACHS SC 02/14/17 21:00 03/16/17 20:59 02/18/17 17:03 6 UNITS Heparin Sodium (Porcine) (Heparin Sq 5000 Unit/0.5ml) 5,000 unit Q12 SQ 02/14/17 21:00 03/16/17 20:59 02/18/17 08:33 5,000 UNIT Acetaminophen (Tylenol Tab) 650 mg Q4H PRN PO 02/14/17 18:30 03/16/17 18:29 02/17/17 11:49 650 MG Al Hydrox/Mg Hydrox/Simethicone (Maalox Max Susp) 15 ml Q4H PRN PO 02/14/17 18:30 03/16/17 18:29 Magnesium Hydroxide (Milk Of Magnesia Susp) 30 ml Q12H PRN PO 02/14/17 18:30 03/16/17 18:29 Ondansetron HCl (Zofran Inj) 4 mg Q6H PRN IV 02/14/17 18:30 03/16/17 18:29 02/16/17 13:17 4 MG Nitroglycerin (Nitrostat Tab) 0.4 mg UD PRN SL 02/14/17 18:30 03/16/17 18:29 Insulin Glargine (Lantus Solostar Pen) 15 units PM SC 02/14/17 21:00 03/16/17 20:59 02/17/17 20:19 15 UNITS Hydralazine HCl (HydrALAZINE INJ) 10 mg Q4H PRN IV 02/14/17 18:45 03/16/17 18:44 Glucose (Glucose 40% Gel) 15-30 GRAMS 15 GRAMS... UD PRN PO 02/14/17 21:00 03/16/17 20:59 Glucose (Glucose Chew Tab) 4-8 Tablets 4 Tabl... UD PRN PO 02/14/17 21:00 03/16/17 20:59 Dextrose (Dextrose 50% 50ML Syringe) 25-50ML OF 50% DW IV FOR... UD PRN IV 02/14/17 21:00 03/16/17 20:59 Glucagon (Glucagon Inj) 1 mg UD PRN SQ 02/14/17 21:00 03/16/17 20:59 Ceftriaxone Sodium 2000 mg/ Dextrose 70 ml @ 140 mls/hr DAILY@1600 IV 02/16/17 16:00 03/02/17 15:59 02/18/17 15:37 140 MLS/HR Prochlorperazine Edisylate 5 mg/ Syringe 5 ml @ 5 mls/min Q4 PRN IV 02/16/17 17:15 03/18/17 17:14 02/16/17 19:29 5 MLS/MIN Lidocaine (Lidoderm Patch 5%) 1 patch QAM TD 02/18/17 14:30 03/20/17 14:29 02/18/17 15:36 1 PATCH Miscellaneous (Remove Lidoderm Patch) 1 ea DAILY@21 N/A 02/18/17 21:00 03/20/17 20:59 Physical Exam Vital Signs Past 12 Hours Date Time Temp Pulse Resp B/P (MAP) Pulse Ox O2 Delivery O2 Flow Rate FiO2 02/18/17 16:00 Nasal Cannula 02/18/17 15:30 36.8 65 16 131/64 (86) 95 Room Air 02/18/17 13:06 90 94 02/18/17 12:10 Nasal Cannula 02/18/17 11:29 36.5 66 18 128/72 (90) 95 02/18/17 08:25 37.0 68 18 128/72 (90) 97 02/18/17 08:20 98 Nasal Cannula She is alert and oriented x3. Mood affect appear normal. She answered all questions appropriately. HEENT: Sclerae are anicteric. Pupils are equal and reactive to light and accommodation. Extraocular movements were intact. Neuro: Cranial nerves intact Neck: Examination of the submandibular region did not reveal any significant lymphadenopathy. Carotids are palpable bilaterally and free of bruits on auscultation. There was no evidence of jugular venous distention. The thyroid was not enlarged. Lungs: Lungs are clear to auscultation bilaterally. There were rare crackles in the bases bilaterally. There was expiratory wheezing.. She has normal respiratory effort without use of accessory muscles. There is normal pulmonary excursion. Cardiac: The rhythm was regular. S1 and S2 were normal. There are no murmurs on examination. The PMI was not markedly displaced on palpation. Abdomen: The abdomen was soft and nontender. Extremities: Patient has bilateral radial pulses that are equal in intensity. There is no evidence cyanosis or clubbing. There was no evidence of significant peripheral edema bilaterally. Skin: There are no rashes noted on examination today. Data Laboratory Results: Last 24 Hours Test 02/17/17 20:12 02/18/17 05:39 02/18/17 06:53 02/18/17 11:21 Bedside Glucose 188 mg/dl 135 mg/dl 196 mg/dl Sodium Level 135 mmol/L Potassium Level 3.7 mmol/L Chloride Level 105 mmol/L Carbon Dioxide Level 21 mmol/L Anion Gap 9.0 mmol/L Blood Urea Nitrogen 26 mg/dl Creatinine 1.60 mg/dl Est Creatinine Clear Calc Drug Dose 24.6 ml/min Estimated GFR () 34.4 Estimated GFR (Non- 29.7 BUN/Creatinine Ratio 16.0 Random Glucose 134 mg/dl Calcium Level 8.8 mg/dl Test 02/18/17 16:16 Bedside Glucose 157 mg/dl Imaging: Chest x-ray was unremarkable EKG: EKG reveals sinus rhythm with right bundle branch block. Unchanged Telemetry reviewed: Echocardiogram reveals preserved LV systolic function with severe pulmonary hypertension and tricuspid regurgitation. Essentially unchanged Assessment & Plan 1. Dyspnea: Patient did have some worsening dyspnea leading up to her admission. She has expiratory wheezing on exam suggesting an element of bronchoconstriction. She does seem to respond to inhaled beta agonists and her usual inhaled medical regimen. It seems that at the time of admission she had some pulmonary vascular congestion based primarily on her elevated N terminal proBNP. She is believed to have an element of diastolic dysfunction in addition to primary pulmonary disease. While she was hydrated initially she has affected a diuresis over the past 2 days likely related to improvement in her renal function. As such she has felt better and overall her her breathing is improved. He would seem reasonable continue her outpatient medical regimen when her renal function stabilizes 2. Elevated cardiac biomarkers: He has a very minimally elevated. The trajectory does not suggest recent acute coronary syndrome. This may been related to her acute illness. She did not describe symptoms consistent with an acute coronary syndrome. May be some contribution from her acute kidney injury as well. I do not see a reason for coronary angiography or additional investigation at this time given her preserved LV systolic function and absence of ischemic symptoms. 3. Pulmonary hypertension: Combination of both primary pulmonary and possibly diastolic heart failure. 4. Diastolic heart failure: This appears to be improving. She did not have markedly elevated blood pressures at the time of admission. Unclear why she would have significant pulmonary vascular congestion on admission, but this seems to have improved. She is on a beta-ree at baseline. She does not require diuretics normally however her need for a daily diuretic can be assessed prior to discharge.
[2017-02-18] MEDS: INSULIN GLARGINE SOLOSTAR 100 UNITS/ML 3 ML PEN SC SCH (21:12)
[2017-02-19] VITALS (8 sets, daily range): BP systolic 133–161; BP diastolic 59–88; PULSE 66–85; TEMP 36.7–37.1; O2SAT 95–99
--- NOTE | 2017-02-19 03:26 | Hospitalist Progress Note ---
Hospitalist Progress Note Date of Service Feb 18, 2017. Subjective Pt evaluation today including: conversation w/ patient, conversation w/ family , physical exam, chart review, conversation w/ organizational consultant Patient was complaining of mild dyspnea on exertion cardiology will be consulted All Other Systems: Reviewed and Negative Medications Medications (Trade) Dose Ordered Sig/[place] Route Start Time Stop Time Status Last Admin Dose Admin Lidocaine (Lidoderm Patch 5%) 1 patch QAM TD 02/18/17 14:30 03/20/17 14:29 02/18/17 15:36 1 PATCH Miscellaneous (Remove Lidoderm Patch) 1 ea DAILY@21 N/A 02/18/17 21:00 03/20/17 20:59 02/18/17 19:59 1 EA Objective Vital Signs Date Time Temp Pulse Resp B/P (MAP) Pulse Ox O2 Delivery O2 Flow Rate FiO2 02/19/17 00:03 36.9 66 18 149/78 (101) 98 Nasal Cannula 02/19/17 00:00 Room Air 2.0 Nasal Cannula 02/18/17 20:05 36.8 66 20 146/68 (94) 100 Nasal Cannula 2.0 02/18/17 20:00 Room Air 2.0 Nasal Cannula 02/18/17 16:00 Nasal Cannula 02/18/17 15:30 36.8 65 16 131/64 (86) 95 Room Air 02/18/17 13:06 90 94 02/18/17 12:10 Nasal Cannula 02/18/17 11:29 36.5 66 18 128/72 (90) 95 02/18/17 08:25 37.0 68 18 128/72 (90) 97 02/18/17 08:20 98 Nasal Cannula 02/18/17 04:14 36.8 71 18 158/65 (96) 98 Nasal Cannula 2.0 02/18/17 04:00 Room Air 2.0 Nasal Cannula Physical Exam General Appearance: no apparent distress Eyes: normal inspection ENT: hearing grossly normal Neck: supple Respiratory/Chest: lungs clear Cardiovascular: regular rate, rhythm Abdomen: normal bowel sounds Extremities: normal range of motion Neurologic/Psychiatric: alert Laboratory Results Last 24 Hours Test 02/18/17 05:39 02/18/17 06:53 02/18/17 11:21 02/18/17 16:16 Sodium Level 135 mmol/L Potassium Level 3.7 mmol/L Chloride Level 105 mmol/L Carbon Dioxide Level 21 mmol/L Anion Gap 9.0 mmol/L Blood Urea Nitrogen 26 mg/dl Creatinine 1.60 mg/dl Est Creatinine Clear Calc Drug Dose 24.6 ml/min Estimated GFR () 34.4 Estimated GFR (Non- 29.7 BUN/Creatinine Ratio 16.0 Random Glucose 134 mg/dl Calcium Level 8.8 mg/dl Bedside Glucose 135 mg/dl 196 mg/dl 157 mg/dl Test 02/18/17 20:42 Bedside Glucose 226 mg/dl Assessment and Plan 81-year-old female with acute on chronic renal failure, elevated troponin and a urinary tract infection present on admission now with pyelonephritis 1. Pyelonephritis pansensitive Escherichia coli is now growing discussed with pharmacy and will change to Rocephin 2 g daily continue present management 2. Acute on chronic renal failure stage III patient will be hydrated with saline her normal diuretic will be held will also hold her lisinopril and follow BUN/creatinine creatinine Continue to follow BUN/creatinine cardiology consultation placed and case discussed in detail with Dr. Perez. 3. Elevated troponin these will be trended and echo will be performed should remain the telemetry will continue aspirin and Coreg Zocor EF is normal 4. Insulin requiring diabetes she takes a range of Lantus at home will start with 15 each night with sliding scale and diabetic diet 5. Heparin for DVT prevention Continued [facility] stay due to: multiple IV medications needed Discharge planning: uncertain
[2017-02-19 06:10] LABS: HEMATOCRIT 24.2 % (37-47); MEAN CORPUSCULAR HEMOGLOBIN 30.8 pg (25-34); MEAN CORPUSCULAR HGB CONC 33.5 g/dl (32-36); PLATELET COUNT 193 K/uL (130-400); RED BLOOD COUNT 2.63 M/uL (4.2-5.4); WHITE BLOOD COUNT 9.46 K/uL (4.8-10.8)
[2017-02-19 06:52] LABS: BUN/CREATININE RATIO 14.4 (10-20); CALCIUM 8.5 mg/dl (8.5-10.1); CREATININE 1.6 mg/dl (0.60-1.20); POTASSIUM 3.9 mmol/L (3.5-5.1)
[2017-02-19 07:05] LABS: PLT ESTIMATE NORMAL
[2017-02-19] MEDS: INSULIN ASPART 100 UNITS/ML 3 ML PEN SC SCH ×4 (08:25→20:54)
[2017-02-19] MEDS: HEPARIN SOD 5000 UNIT/0.5 ML CARP SQ SCH ×2 (08:26→20:42)
[2017-02-19] MEDS: BUDESONIDE/FORMOTEROL FUMARATE 160/4.5 60 PUFFS/INHALER INH SCH ×2 (08:29→20:34)
[2017-02-19] MEDS: TIOTROPIUM BROMIDE 5 PUFF/90 MCG INH INH SCH (08:29)
[2017-02-19] MEDS: PANTOprazole SOD 40 MG TAB PO SCH (08:30)
[2017-02-19] MEDS: GABAPENTIN 600 MG TAB PO SCH ×3 (08:30→20:36)
[2017-02-19] MEDS: ASPIRIN 81 MG ECTAB PO SCH (08:30)
[2017-02-19] MEDS: SIMVASTATIN 40 MG TAB PO SCH (08:30)
[2017-02-19] MEDS: CARVEDILOL 3.125 MG TAB PO SCH ×2 (08:30→20:36)
[2017-02-19] MEDS: ALLOPURINOL 100 MG TAB PO SCH (08:31)
[2017-02-19] MEDS: LIDODERM (LIDOCAINE) PATCH 5% TD SCH (08:33)
[2017-02-19] MEDS: VALSARTAN 80 MG TAB PO SCH (11:06)
[2017-02-19] MEDS: CEFTRIAXONE SOD INJ 2000 MG in DEXTROSE 5% 50ML IV SCH (16:38)
[2017-02-19] MEDS: INSULIN GLARGINE SOLOSTAR 100 UNITS/ML 3 ML PEN SC SCH (20:41)
[2017-02-20] VITALS (11 sets, daily range): BP systolic 124–183; BP diastolic 61–80; PULSE 56–75; TEMP 36.4–36.7; O2SAT 91–99
--- NOTE | 2017-02-20 00:18 | Hospitalist Progress Note ---
Hospitalist Progress Note Date of Service Feb 19, 2017. Subjective Pt evaluation today including: conversation w/ patient Pain: patient with no complaints No chest pain or shortness of breath Objective Vital Signs Date Time Temp Pulse Resp B/P (MAP) Pulse Ox O2 Delivery O2 Flow Rate FiO2 02/20/17 00:09 95 Room Air 02/19/17 23:00 36.7 69 18 161/68 (99) 99 Nasal Cannula 2.0 02/19/17 20:00 95 Room Air 02/19/17 19:09 36.7 67 20 133/84 (100) 95 Room Air 02/19/17 16:00 Room Air 02/19/17 15:44 36.9 75 18 135/59 (84) 96 02/19/17 12:00 Room Air 02/19/17 11:38 37.0 85 18 139/72 (94) 96 02/19/17 08:00 Room Air 02/19/17 07:40 36.9 72 18 160/64 (96) 96 02/19/17 04:30 37.1 67 18 149/88 (108) 99 Nasal Cannula 02/19/17 04:00 Room Air 2.0 Nasal Cannula Physical Exam General Appearance: no apparent distress ENT: hearing grossly normal Respiratory/Chest: lungs clear Cardiovascular: regular rate, rhythm Abdomen: normal bowel sounds Extremities: non-tender Skin: normal color Laboratory Results Last 24 Hours Test 02/19/17 05:27 02/19/17 06:58 02/19/17 10:57 02/19/17 16:10 White Blood Count 9.46 K/uL Red Blood Count 2.63 M/uL Hemoglobin 8.1 g/dL Hematocrit 24.2 % Mean Corpuscular Volume 92.0 fL Mean Corpuscular Hemoglobin 30.8 pg Mean Corpuscular Hemoglobin Concent 33.5 g/dl RDW Standard Deviation 45.1 fL RDW Coefficient of Variation 13.4 % Platelet Count 193 K/uL Mean Platelet Volume 10.0 fL Platelet Estimate NORMAL Sodium Level 140 mmol/L Potassium Level 3.9 mmol/L Chloride Level 109 mmol/L Carbon Dioxide Level 23 mmol/L Anion Gap 8.0 mmol/L Blood Urea Nitrogen 23 mg/dl Creatinine 1.60 mg/dl Est Creatinine Clear Calc Drug Dose 24.4 ml/min Estimated GFR () 34.4 Estimated GFR (Non- 29.7 BUN/Creatinine Ratio 14.4 Random Glucose 124 mg/dl Calcium Level 8.5 mg/dl Bedside Glucose 124 mg/dl 220 mg/dl 159 mg/dl Test 02/19/17 20:53 Bedside Glucose 151 mg/dl Assessment and Plan 81-year-old female with acute on chronic renal failure, elevated troponin and a urinary tract infection present on admission now with pyelonephritis 1. Pyelonephritis pansensitive Escherichia coli is now growing discussed with pharmacy treat with Rocephin 2 g daily continue present management 2. Acute on chronic renal failure stage III patient will be hydrated with saline her normal diuretic will be held will also hold her lisinopril and follow BUN/creatinine creatinine. 3. Elevated troponin these will be trended and echo will be performed should remain the telemetry will continue aspirin and Coreg Zocor EF is normal 4. Insulin requiring diabetes she takes a range of Lantus at home will start with 15 each night with sliding scale and diabetic diet 5. Heparin for DVT prevention Discharge planning: uncertain
[2017-02-20 06:10] LABS: HEMATOCRIT 25.6 % (37-47); MEAN CELL VOLUME 92.4 fL (80-100); MEAN CORPUSCULAR HEMOGLOBIN 30.7 pg (25-34); MEAN CORPUSCULAR HGB CONC 33.2 g/dl (32-36); MEAN PLATELET VOLUME 9.6 fL (7.4-10.4); PLATELET COUNT 231 K/uL (130-400); RED BLOOD COUNT 2.77 M/uL (4.2-5.4); WHITE BLOOD COUNT 10.15 K/uL (4.8-10.8)
[2017-02-20 07:39] LABS: BUN/CREATININE RATIO 13.9 (10-20); CALCIUM 8.8 mg/dl (8.5-10.1); CREATININE 1.6 mg/dl (0.60-1.20); POTASSIUM 3.8 mmol/L (3.5-5.1)
[2017-02-20] MEDS: INSULIN ASPART 100 UNITS/ML 3 ML PEN SC SCH ×4 (08:14→20:04)
[2017-02-20] MEDS: HEPARIN SOD 5000 UNIT/0.5 ML CARP SQ SCH ×2 (08:14→20:04)
[2017-02-20] MEDS: BUDESONIDE/FORMOTEROL FUMARATE 160/4.5 60 PUFFS/INHALER INH SCH ×2 (08:17→19:56)
[2017-02-20] MEDS: VALSARTAN 80 MG TAB PO SCH (08:18)
[2017-02-20] MEDS: ESCITALOPRAM OXALATE 10 MG TAB PO SCH (08:18)
[2017-02-20] MEDS: ASPIRIN 81 MG ECTAB PO SCH (08:18)
[2017-02-20] MEDS: ALLOPURINOL 100 MG TAB PO SCH (08:19)
[2017-02-20] MEDS: GABAPENTIN 600 MG TAB PO SCH ×3 (08:19→19:55)
[2017-02-20] MEDS: SIMVASTATIN 40 MG TAB PO SCH (08:19)
[2017-02-20] MEDS: PANTOprazole SOD 40 MG TAB PO SCH (08:19)
[2017-02-20] MEDS: LIDODERM (LIDOCAINE) PATCH 5% TD SCH (08:22)
[2017-02-20] MEDS: TIOTROPIUM BROMIDE 5 PUFF/90 MCG INH INH SCH (08:35)
[2017-02-20] MEDS: CARVEDILOL 3.125 MG TAB PO SCH ×2 (08:36→19:56)
[2017-02-20] MEDS: CEFTRIAXONE SOD INJ 2000 MG in DEXTROSE 5% 50ML IV SCH (15:55)
--- NOTE | 2017-02-20 16:23 | Hospitalist Progress Note ---
Hospitalist Progress Note Date of Service Feb 20, 2017. Subjective Pt evaluation today including: conversation w/ patient Patient with no complaints no chest pain or shortness of breath Objective Vital Signs Date Time Temp Pulse Resp B/P (MAP) Pulse Ox O2 Delivery O2 Flow Rate FiO2 02/20/17 16:05 36.4 66 16 153/69 (97) 91 02/20/17 12:00 Room Air 02/20/17 11:36 36.7 66 18 124/62 (82) 94 02/20/17 08:16 36.5 56 16 132/65 (87) 95 02/20/17 08:00 Room Air 02/20/17 04:08 95 Room Air 02/20/17 03:05 36.7 66 18 135/61 (85) 99 Nasal Cannula 2.0 02/20/17 00:09 95 Room Air 02/19/17 23:00 36.7 69 18 161/68 (99) 99 Nasal Cannula 2.0 02/19/17 20:00 95 Room Air 02/19/17 19:09 36.7 67 20 133/84 (100) 95 Room Air Physical Exam General Appearance: no apparent distress ENT: hearing grossly normal Respiratory/Chest: chest non-tender Cardiovascular: regular rate, rhythm Abdomen: normal bowel sounds Laboratory Results Last 24 Hours Test 02/19/17 20:53 02/20/17 05:49 02/20/17 06:31 02/20/17 11:32 Bedside Glucose 151 mg/dl 160 mg/dl 143 mg/dl White Blood Count 10.15 K/uL Red Blood Count 2.77 M/uL Hemoglobin 8.5 g/dL Hematocrit 25.6 % Mean Corpuscular Volume 92.4 fL Mean Corpuscular Hemoglobin 30.7 pg Mean Corpuscular Hemoglobin Concent 33.2 g/dl RDW Standard Deviation 45.1 fL RDW Coefficient of Variation 13.5 % Platelet Count 231 K/uL Mean Platelet Volume 9.6 fL Nucleated RBC Absolute Count (auto) 0.02 K/uL Nucleated Red Blood Cells % 0.2 % Sodium Level 140 mmol/L Potassium Level 3.8 mmol/L Chloride Level 107 mmol/L Carbon Dioxide Level 23 mmol/L Anion Gap 10.0 mmol/L Blood Urea Nitrogen 22 mg/dl Creatinine 1.60 mg/dl Est Creatinine Clear Calc Drug Dose 24.7 ml/min Estimated GFR () 34.4 Estimated GFR (Non- 29.7 BUN/Creatinine Ratio 13.9 Random Glucose 154 mg/dl Calcium Level 8.8 mg/dl Assessment and Plan 81-year-old female with acute on chronic renal failure, elevated troponin and a urinary tract infection present on admission now with pyelonephritis 1. Pyelonephritis pansensitive Escherichia coli is now growing discussed with pharmacy treat with Rocephin 2 g daily continue present management 2. Acute on chronic renal failure stage III patient will be hydrated with saline her normal diuretic will be held will also hold her lisinopril and follow BUN/creatinine creatinine. 3. Elevated troponin these will be trended and echo will be performed should remain the telemetry will continue aspirin and Coreg Zocor EF is normal Patient is stable for transfer to the medical surgical floor 4. Insulin requiring diabetes she takes a range of Lantus at home will start with 15 each night with sliding scale and diabetic diet 5. Heparin for DVT prevention
[2017-02-20] MEDS: INSULIN GLARGINE SOLOSTAR 100 UNITS/ML 3 ML PEN SC SCH (20:03)
[2017-02-20] MEDS: HydrALAZINE HCL 20 MG/ML VIAL IV PRN (23:39)
[2017-02-21] VITALS (7 sets, daily range): BP systolic 132–184; BP diastolic 70–78; PULSE 60–74; TEMP 36.3–36.6; O2SAT 96–99
[2017-02-21 06:23] LABS: HEMATOCRIT 26.6 % (37-47); MEAN CELL VOLUME 94.3 fL (80-100); MEAN CORPUSCULAR HEMOGLOBIN 30.5 pg (25-34); MEAN CORPUSCULAR HGB CONC 32.3 g/dl (32-36); MEAN PLATELET VOLUME 10.2 fL (7.4-10.4); PLATELET COUNT 269 K/uL (130-400); RED BLOOD COUNT 2.82 M/uL (4.2-5.4); WHITE BLOOD COUNT 13.04 K/uL (4.8-10.8)
[2017-02-21] MEDS: TIOTROPIUM BROMIDE 5 PUFF/90 MCG INH INH SCH (08:50)
[2017-02-21] MEDS: LIDODERM (LIDOCAINE) PATCH 5% TD SCH (08:50)
[2017-02-21] MEDS: BUDESONIDE/FORMOTEROL FUMARATE 160/4.5 60 PUFFS/INHALER INH SCH ×2 (08:51→20:16)
[2017-02-21] MEDS: VALSARTAN 80 MG TAB PO SCH (08:51)
[2017-02-21] MEDS: SIMVASTATIN 40 MG TAB PO SCH (08:52)
[2017-02-21] MEDS: CARVEDILOL 3.125 MG TAB PO SCH ×2 (08:52→20:22)
[2017-02-21] MEDS: GABAPENTIN 600 MG TAB PO SCH ×3 (08:52→20:23)
[2017-02-21] MEDS: ASPIRIN 81 MG ECTAB PO SCH (08:52)
[2017-02-21] MEDS: ALLOPURINOL 100 MG TAB PO SCH (08:52)
[2017-02-21] MEDS: PANTOprazole SOD 40 MG TAB PO SCH (08:52)
[2017-02-21] MEDS: HEPARIN SOD 5000 UNIT/0.5 ML CARP SQ SCH ×2 (09:01→20:15)
[2017-02-21] MEDS: INSULIN ASPART 100 UNITS/ML 3 ML PEN SC SCH ×4 (09:01→20:19)
[2017-02-21 11:04] LABS: BUN/CREATININE RATIO 14.1 (10-20); CREATININE 1.4 mg/dl (0.60-1.20); POTASSIUM 3.8 mmol/L (3.5-5.1)
[2017-02-21] MEDS: ACETAMINOPHEN 325 MG TAB PO PRN ×2 (14:54→23:43)
[2017-02-21] MEDS: CEFTRIAXONE SOD INJ 2000 MG in DEXTROSE 5% 50ML IV SCH (15:33)
--- NOTE | 2017-02-21 18:48 | Hospitalist Progress Note ---
Hospitalist Progress Note Date of Service Feb 21, 2017. Subjective Pt evaluation today including: conversation w/ patient, conversation w/ family Patient with no complaints no chest pain or shortness of breath Objective Vital Signs Date Time Temp Pulse Resp B/P (MAP) Pulse Ox O2 Delivery O2 Flow Rate FiO2 02/21/17 16:23 36.5 60 18 167/78 (107) 98 Room Air 2.0 60 02/21/17 16:20 36.5 60 18 167/78 (107) 98 Room Air 60 02/21/17 16:00 99 Nasal Cannula 2.0 02/21/17 09:00 99 Nasal Cannula 2.0 02/21/17 07:43 36.6 71 18 132/70 (90) 99 Nasal Cannula 2.0 02/21/17 01:59 74 158/74 (102) 02/21/17 00:04 Room Air 02/20/17 23:30 36.6 68 20 183/79 (113) 97 Room Air 02/20/17 20:12 Room Air 02/20/17 19:45 64 153/78 (103) Physical Exam General Appearance: no apparent distress ENT: hearing grossly normal Neck: trachea midline Respiratory/Chest: lungs clear Cardiovascular: regular rate, rhythm Abdomen: normal bowel sounds, non tender Extremities: + pedal edema Laboratory Results Last 24 Hours Test 02/20/17 19:59 02/21/17 05:08 02/21/17 07:54 02/21/17 11:40 Bedside Glucose 179 mg/dl 122 mg/dl 176 mg/dl White Blood Count 13.04 K/uL Red Blood Count 2.82 M/uL Hemoglobin 8.6 g/dL Hematocrit 26.6 % Mean Corpuscular Volume 94.3 fL Mean Corpuscular Hemoglobin 30.5 pg Mean Corpuscular Hemoglobin Concent 32.3 g/dl RDW Standard Deviation 46.6 fL RDW Coefficient of Variation 13.7 % Platelet Count 269 K/uL Mean Platelet Volume 10.2 fL Sodium Level 139 mmol/L Potassium Level 3.8 mmol/L Chloride Level 106 mmol/L Carbon Dioxide Level 25 mmol/L Anion Gap 8.0 mmol/L Blood Urea Nitrogen 20 mg/dl Creatinine 1.40 mg/dl Est Creatinine Clear Calc Drug Dose 28.3 ml/min Estimated GFR () 40.5 Estimated GFR (Non- 34.9 BUN/Creatinine Ratio 14.1 Random Glucose 122 mg/dl Calcium Level 9.0 mg/dl Test 02/21/17 16:41 Bedside Glucose 145 mg/dl Assessment and Plan 81-year-old female with acute on chronic renal failure, elevated troponin and a urinary tract infection present on admission now with pyelonephritis 1. Pyelonephritis pansensitive Escherichia coli is now growing discussed with pharmacy treat with Rocephin 2 g daily continue present management 2. Acute on chronic renal failure stage III patient will be hydrated with saline her normal diuretic will be held will also hold her lisinopril and follow BUN/creatinine creatinine. Patient states she takes Lasix as needed at home and consider starting tomorrow 3. Elevated troponin these will be trended and echo will be performed should remain the telemetry will continue aspirin and Coreg Zocor EF is normal Patient is stable for transfer to the medical surgical floor patient should have cardiac follow-up when she is released from the hospital and rehabilitation 4. Insulin requiring diabetes she takes a range of Lantus at home will start with 15 each night with sliding scale and diabetic diet 5. Heparin for DVT prevention Discharge planning: senior living facility (for acute rehabilitation)
[2017-02-21] MEDS: INSULIN GLARGINE SOLOSTAR 100 UNITS/ML 3 ML PEN SC SCH (20:21)
[2017-02-21] MEDS ORDERED: COUGH DROP (SUGAR FREE) LOZ 24 LOZ/1 BOX PO PRN (23:45)
[2017-02-22] VITALS (7 sets, daily range): BP systolic 130–178; BP diastolic 71–80; PULSE 68–75; TEMP 36.5–36.8; O2SAT 93–97
[2017-02-22] MEDS: HydrALAZINE HCL 20 MG/ML VIAL IV PRN (00:13)
[2017-02-22] MEDS: LIDODERM (LIDOCAINE) PATCH 5% TD SCH (08:14)
[2017-02-22] MEDS: PANTOprazole SOD 40 MG TAB PO SCH (08:14)
[2017-02-22] MEDS: SIMVASTATIN 40 MG TAB PO SCH (08:14)
[2017-02-22] MEDS: GABAPENTIN 600 MG TAB PO SCH ×3 (08:14→19:49)
[2017-02-22] MEDS: VALSARTAN 80 MG TAB PO SCH (08:15)
[2017-02-22] MEDS: ASPIRIN 81 MG ECTAB PO SCH (08:15)
[2017-02-22] MEDS: ESCITALOPRAM OXALATE 10 MG TAB PO SCH (08:15)
[2017-02-22] MEDS: CARVEDILOL 3.125 MG TAB PO SCH ×2 (08:15→19:49)
[2017-02-22] MEDS: BUDESONIDE/FORMOTEROL FUMARATE 160/4.5 60 PUFFS/INHALER INH SCH ×2 (08:16→19:49)
[2017-02-22] MEDS: TIOTROPIUM BROMIDE 5 PUFF/90 MCG INH INH SCH (08:16)
[2017-02-22] MEDS: ALLOPURINOL 100 MG TAB PO SCH (08:16)
[2017-02-22] MEDS: INSULIN ASPART 100 UNITS/ML 3 ML PEN SC SCH ×4 (08:26→21:39)
[2017-02-22] MEDS: HEPARIN SOD 5000 UNIT/0.5 ML CARP SQ SCH ×2 (08:26→21:40)
[2017-02-22 10:04] LABS: BUN/CREATININE RATIO 11.5 (10-20); CALCIUM 9.6 mg/dl (8.5-10.1); CREATININE 1.5 mg/dl (0.60-1.20); POTASSIUM 3.8 mmol/L (3.5-5.1)
[2017-02-22] MEDS ORDERED: DVN80 PO (12:38)
[2017-02-22] MEDS ORDERED: CPR250 PO (12:43)
--- NOTE | 2017-02-22 12:44 | Discharge Instructions ---
Discharge Instructions Date of Service Feb 23, 2017. Admission Reason for Admission: Acute Renal Failure Superimposed On Stage 3 Discharge Discharge Diagnosis / Problem: e coli sepsis Discharge Goals Goal(s): Diagnostic testing, Therapeutic intervention Activity Recommendations Activity Limitations: resume your previous activity . Current Hospital Diet Patient's current hospital diet: Diabetes Type 2 Diet Discharge Diet Recommended Diet: Diabetes Type 2 Diet Pending Studies Studies pending at discharge: no Laboratory Results Hemoglobin A1c Test 12/02/16 12:41 Range/Units Estimated Average Glucose 140 mg/dl Hemoglobin A1c 6.5 H 4.5-5.6 % Medical Emergencies . Who to Call and When: Medical Emergencies: If at any time you feel your situation is an emergency, please call 911 immediately. . Non-Emergent Contact Non-Emergency issues call your: Primary Care Provider . . "Provider Documentation" section prepared by Devaughn Pickett. . VTE Core Measure Inpt VTE Proph given/why not?: Unfractionated heparin SQ
[2017-02-22] MEDS: CEFTRIAXONE SOD INJ 2000 MG in DEXTROSE 5% 50ML IV SCH (15:30)
--- NOTE | 2017-02-22 15:41 | Discharge Summary ---
Discharge Summary Date of Service Feb 22, 2017. Discharge Summary Admission Date: Feb 14, 2017 at 18:33 Discharge Date: Feb 23, 2017 Discharge Disposition: Home with services Principal Diagnosis: sepsis from E coli, acute renal failure Immunizations: Have You Had Influenza Vaccine: Yes History of Tetanus Vaccine?: Yes History of Pneumococcal: Yes Pneumococcal Date: Aug 02, 2009 History of Hepatitis B Vaccine: No Medication Reconciliation New Medications: Ciprofloxacin (Ciprofloxacin HCl) 250 Mg Tab 250 MG PO BID, #14 DOSE Valsartan (Diovan) 80 Mg Tab 80 MG PO BID, #60 TAB Continued Medications: Acetaminophen (Tylenol) 500 Mg Tab 500 MG PO BID PRN for Pain, TAB Albuterol Sulfate (Proair Respiclick) 108 Mcg/Act Aer 2 PUFFS INH Q4H PRN for SOB/Wheezing Allopurinol (Zyloprim) 100 Mg Tab 200 MG PO DAILY, TAB Amoxicillin (Amoxicillin) 500 Mg Cap 4 TAB PO DIRECTED AMOX 500MG TAKE 4 TABS PO 1 HOUR PRIOR TO DENTAL WORK Aspirin (Aspir-81) 81 Mg Tab 81 MG PO DAILY Budesonide/Formoterol Fumarate (Symbicort 160/4.5 Inhaler ) Aero 2 PUFFS INH BID, INHALER Calcium Carbonate (Calcium) 600 Mg Tab 600 MG PO BID Carvedilol (Carvedilol) 3.125 Mg Tab 3.125 MG PO BID for 30 Days, TAB Escitalopram (Lexapro) 10 Mg Tab 10 MG PO Q2D, 0 Refills Ferrous Sulfate (Iron) 325 Mg Tab 650 MG PO BID Furosemide (Lasix) 40 Mg Tab 40 MG PO DAILY PRN for EDEMA, TAB TAKE 1/2 TO 1 TABLET PRN FOR LE EDEMA Gabapentin (Gabapentin) 600 Mg Tab 600 MG PO TID, #270 Home O2 Therapy (Oxygen) Gas 2 LITERS NA HS Insulin Aspart (Novolog Flexpen) 100 Units/Ml Inj 10-15 UNITS SQ AC TAKE 10-15 UNITS DEPENDING ON THE MEAL BEFORE MEALS Insulin Glargine (Toujeo Solostar) 300 Unit/Ml Inj 10-25 UNITS SQ HS Multivitamin (Multivitamin) Tab 1 TAB PO DAILY, 0 Refills Pantoprazole (Protonix) 40 Mg Tab 40 MG PO DAILY, #30 TAB Simvastatin (Zocor) 40 Mg Tab 40 MG PO DAILY, TAB Tiotropium Carmine (Spiriva Handihaler) 30 Puff/540 Mcg Aerp 1 CAP INH DAILY, INHALER Tramadol (Ultram) 50 Mg Tab 50 MG PO Q6 PRN for Pain, TAB [Osteo Bi Flex] () Unknown Strength 1 TAB PO BID Discontinued Medications: Lisinopril (Zestril) 40 Mg Tab 40 MG PO DAILY, TAB Discharge Exam Review of Systems: Constitutional: No fever, No chills, No weakness Respiratory: No cough, No sputum, No wheezing, No shortness of breath Abdomen: No pain, No nausea, No vomiting, No diarrhea Neurologic: No memory loss, No paralysis, No weakness, No numbness/tingling Psychiatric: No depression symptoms, No anhedonism Physical Exam: General Appearance: WD/WN, no apparent distress Neck: supple, no JVD Respiratory/Chest: chest non-tender, lungs clear, normal breath sounds Cardiovascular: regular rate, rhythm, no murmur Abdomen / GI: normal bowel sounds, non tender, soft Extremities: normal range of motion, + pedal edema, + swelling Neurologic/Psychiatric: alert, oriented x 3 Hospital Course 81-year-old female with acute on chronic renal failure, elevated troponin and a urinary tract infection present on admission Acute on chronic renal failure stage III pt has changed to diovan with some pm blood pressure elevation will change to bid dosing but can also consider adding hctz and keeping once a day, will have recheck at pcp office this week, if not doing well with BID may consider once a day For urinary tract infection present on admission pyelonephritis will complete two weeks of total antibiotics, renal dosed cipro, for last one week Elevated troponin this is not angina but demand ischemia, continue aspirin and Coreg Zocor Insulin requiring diabetes resume lantus and ssi depression, Lexapro and Neurontin Total Time Spent: Greater than 30 minutes This includes examination of the patient, discharge planning, medication reconciliation, and communication with other providers. Discharge Instructions Please refer to the electronic Patient Visit Report (Discharge Instructions) for additional information.
--- NOTE | 2017-02-22 15:53 | Progress Note ---
Subjective Date of Service: Feb 22, 2017. Subjective Attempted discharge 02/22, pt could not have family come to get her, pt typically lives with her sister. discharge cancelled Problem List Medical Problems: (1) Acute renal failure Status: Acute (2) Back pain Status: Acute (3) Hypoxia Status: Acute (4) Lumbar disc disease Status: Acute (5) Spinal stenosis Status: Acute Review of Systems Constitutional: No fever, No chills, No weakness, No fatigue Respiratory: No cough, No sputum, No shortness of breath, No dyspnea on exertion Cardiac: No chest pain, No edema, No claudication Abdomen: No pain, No nausea, No vomiting, No diarrhea Neurologic: + weakness, No memory loss, No paralysis Psychiatric: No depression symptoms, No anhedonism Objective Vital Signs Date Time Temp Pulse Resp B/P (MAP) Pulse Ox O2 Delivery O2 Flow Rate FiO2 02/22/17 07:40 36.5 18 130/71 (90) 97 Nasal Cannula 2.0 02/22/17 01:06 151/80 (103) 02/22/17 00:00 Nasal Cannula 2.0 02/21/17 23:44 36.3 73 20 184/78 (113) 96 Room Air 02/21/17 20:00 Room Air 02/21/17 16:23 36.5 60 18 167/78 (107) 98 Room Air 2.0 60 02/21/17 16:20 36.5 60 18 167/78 (107) 98 Room Air 60 02/21/17 16:00 99 Nasal Cannula 2.0 02/21/17 09:00 99 Nasal Cannula 2.0 Physical Exam General Appearance: WD/WN, no apparent distress Neck: supple, no JVD Respiratory/Chest: chest non-tender, lungs clear, normal breath sounds Cardiovascular: regular rate, rhythm, + systolic murmur Abdomen: normal bowel sounds, non tender, soft Extremities: + pedal edema, + swelling Neurologic/Psychiatric: alert, oriented x 3 Laboratory Results Last 24 Hours Test 02/21/17 11:40 02/21/17 16:41 02/21/17 20:02 02/22/17 07:48 Bedside Glucose 176 mg/dl 145 mg/dl 165 mg/dl 110 mg/dl Assessment and Plan 81-year-old female with acute on chronic renal failure, elevated troponin and a urinary tract infection present on admission Acute on chronic renal failure stage III, improved resume favian For urinary tract infection present on admission pyelonephritis simeon sensitive [place], will have two week course Elevated troponin, demand ischemia , echo aspirin and Coreg Zocor Insulin requiring diabetes Lantus at home Depression Lexapro and Neurontin Heparin for DVT prevention Continued [facility] stay due to: multiple IV medications needed Discharge planning: prison facility (for acute rehabilitation)
[2017-02-22] MEDS: INSULIN GLARGINE SOLOSTAR 100 UNITS/ML 3 ML PEN SC SCH (21:40)
[2017-02-23 05:52] LABS: HEMATOCRIT 26.6 % (37-47); MEAN CELL VOLUME 94.3 fL (80-100); MEAN CORPUSCULAR HEMOGLOBIN 31.6 pg (25-34); MEAN CORPUSCULAR HGB CONC 33.5 g/dl (32-36); MEAN PLATELET VOLUME 9.4 fL (7.4-10.4); PLATELET COUNT 276 K/uL (130-400); RED BLOOD COUNT 2.82 M/uL (4.2-5.4); WHITE BLOOD COUNT 13.01 K/uL (4.8-10.8)
[2017-02-23 06:29] LABS: BUN/CREATININE RATIO 15.6 (10-20); CALCIUM 9.2 mg/dl (8.5-10.1); CREATININE 1.2 mg/dl (0.60-1.20); POTASSIUM 3.9 mmol/L (3.5-5.1)
[2017-02-23 07:48] VITALS: BP 129/67; PULSE 70; TEMP 36.7; O2SAT 92
[2017-02-23] MEDS: ASPIRIN 81 MG ECTAB PO SCH (08:28)
[2017-02-23] MEDS: PANTOprazole SOD 40 MG TAB PO SCH (08:28)
[2017-02-23] MEDS: CARVEDILOL 3.125 MG TAB PO SCH (08:29)
[2017-02-23] MEDS: ALLOPURINOL 100 MG TAB PO SCH (08:29)
[2017-02-23] MEDS: BUDESONIDE/FORMOTEROL FUMARATE 160/4.5 60 PUFFS/INHALER INH SCH (08:30)
[2017-02-23] MEDS: VALSARTAN 80 MG TAB PO SCH (08:30)
[2017-02-23] MEDS: GABAPENTIN 600 MG TAB PO SCH (08:30)
[2017-02-23] MEDS: SIMVASTATIN 40 MG TAB PO SCH (08:30)
[2017-02-23] MEDS: TIOTROPIUM BROMIDE 5 PUFF/90 MCG INH INH SCH (08:31)
[2017-02-23] MEDS: LIDODERM (LIDOCAINE) PATCH 5% TD SCH (08:32)
[2017-02-23] MEDS: HEPARIN SOD 5000 UNIT/0.5 ML CARP SQ SCH (08:33)
[2017-02-23] MEDS: INSULIN ASPART 100 UNITS/ML 3 ML PEN SC SCH ×2 (08:37→12:36)
[2017-02-23 11:17] VITALS: BP 129/67; PULSE 70; TEMP 36.7; O2SAT 92
--- NOTE | 2017-03-08 09:27 | EMERGENCY ROOM VISIT NOTE ---
History Report prepared by Maryan: Eugenio Bello Under the Supervision of: Dr. Sandi Shah D.O. First contact with patient: 14:52 Chief Complaint: ILLNESS Stated Complaint: FALLING,CHILLS,SOMETIMES WARM,SHAKING History of Present Illness The patient is a 81 year old female who presents to the Emergency Room with complaints of intermittent chills beginning three days ago. Her symptoms include tremors, nausea, headache, resolved dizziness, and hot flashes. She denies any known fevers, cough, diarrhea, black or bloody stool, rashes, urinary symptoms, or sore-throat. The patient states that she has had an occasional wheeze recently. She has a history of asthma and has an inhaler at home. She has not been using her inhaler recently. The patient denies any known sick contacts. She has a history of pulmonary hypertension, and CHF. She states that she vomited once or twice yesterday. The patient notes that she fell out of bed this morning. She states that she slid off of the edge of the bed and onto the floor. She denies any injury from the fall. The patient states that she has been hydrating well recently. Source of History: patient Onset: Three days ago Quality: other (Chills) Timing: intermittent Associated Symptoms: + headache, + nausea, + vomiting, No fevers, No sorethroat, No cough, No melena, No hematochezia, No diarrhea, No urinary symptoms Note: The patient's symptoms include tremors, resolved dizziness, and hot flashes. Review of Systems See HPI for pertinent positives & negatives. A total of 10 systems reviewed and were otherwise negative. Past Medical & Surgical Medical Problems: (1) Acute renal failure superimposed on stage 3 chronic kidney disease (2) Anemia (3) Cardiorenal syndrome (4) CHF (congestive heart failure) (5) Elevated troponin (6) Pulmonary edema (7) Pulmonary HTN Family History No pertinent family history Social History Smoking Status: Never Smoker Marital Status: Housing Status: lives alone Occupation Status: retired Current/Historical Medications Scheduled Allopurinol (Zyloprim), 200 MG PO DAILY Amoxicillin (Amoxicillin), 4 TAB PO DIRECTED Aspirin (Aspir-81), 81 MG PO DAILY Budesonide/Formoterol Fumarate (Symbicort 160/4.5 Inhaler ), 2 PUFFS INH BID Calcium Carbonate (Calcium), 600 MG PO BID Carvedilol (Carvedilol), 3.125 MG PO BID Ciprofloxacin (Ciprofloxacin HCl), 250 MG PO BID Escitalopram (Lexapro), 10 MG PO Q2D Ferrous Sulfate (Iron), 650 MG PO BID Gabapentin (Gabapentin), 600 MG PO TID Home O2 Therapy (Oxygen), 2 LITERS NA HS Insulin Aspart (Novolog Flexpen), 10-15 UNITS SQ AC Insulin Glargine (Toujeo Solostar), 10-25 UNITS SQ HS Multivitamin (Multivitamin), 1 TAB PO DAILY Pantoprazole (Protonix), 40 MG PO DAILY Simvastatin (Zocor), 40 MG PO DAILY Tiotropium [place] (Spiriva Handihaler), 1 CAP INH DAILY Valsartan (Diovan), 80 MG PO BID [Osteo Bi Flex], 1 TAB PO BID Scheduled PRN Acetaminophen (Tylenol), 500 MG PO BID PRN for Pain Albuterol Sulfate (Proair Respiclick), 2 PUFFS INH Q4H PRN for SOB/Wheezing Furosemide (Lasix), 40 MG PO DAILY PRN for EDEMA Tramadol (Ultram), 50 MG PO Q6 PRN for Pain Allergies Coded Allergies: Sulfa Antibiotics (Verified Allergy, Severe, ANAPHYLAXIS; TAKES AMARYL W/ O REACTION, 02/16/17) Thyroid (Verified Allergy, Unknown, "THYROID AGENTS", 02/14/17) Cephalosporins (Verified Adverse Reaction, Unknown, KEFLEX ALLERGY -NAUSEA , 02/16/17) Physical Exam Vital Signs Date Time Temp Pulse Resp B/P (MAP) Pulse Ox O2 Delivery O2 Flow Rate FiO2 02/14/17 17:56 78 20 131/49 96 Room Air 02/14/17 16:28 82 20 113/74 94 Room Air 02/14/17 16:07 83 02/14/17 14:54 36.7 94 20 136/60 98 Physical Exam GENERAL: Ill appearing. Rigors noted. Pale. EYE EXAM: normal conjunctiva, PERRL and EOM's grossly intact OROPHARYNX: no exudate, no erythema, lips, buccal mucosa, and tongue normal and mucous membranes are moist NECK: supple, no nuchal rigidity, no adenopathy, non-tender LUNGS: Clear to auscultation. Normal chest wall mechanics HEART: no murmurs, S1 normal and S2 normal ABDOMEN: abdomen soft, non-tender, normo-active bowel sounds, no masses, no rebound or guarding. BACK: Back is symmetrical on inspection and there is no deformity, no midline tenderness, no CVA tenderness. SKIN: no rashes and no bruising UPPER EXTREMITIES: upper extremities are grossly normal. LOWER EXTREMITIES: No pitting edema. NEURO EXAM: Normal sensorium, cranial nerves II-XII grossly intact, normal speech, no gross weakness of arms, no gross weakness of legs. Medical Decision & Procedures ER Provider Diagnostic Interpretation: Radiology results have been interpreted by the radiologist and reviewed by me. CT SCAN OF THE BRAIN WITHOUT IV CONTRAST FINDINGS: Brain parenchyma: There are age-related involutional changes noting mild to moderate patchy subcortical and periventricular microangiopathic change. There is no hemorrhage, mass effect, or evidence of acute territorial ischemia by CT criteria. Villegas-white matter is preserved. No extra-axial fluid collection is seen. Ventricles, sulci, cisterns: Prominent secondary to involutional change. Intracranial vasculature: There is atherosclerotic calcification of the cavernous carotid and vertebral arteries. Calvarium: Unremarkable. Sinuses and mastoids: The visualized paranasal sinuses are clear. The mastoid air cells are well pneumatized. Orbits: The bony orbits are grossly intact. IMPRESSION: There is no hemorrhage, mass effect, or evidence of acute territorial ischemia by CT criteria. Electronically signed by: Shaun Huddleston M.D. TWO VIEW CHEST FINDINGS: AP and lateral chest radiographs are compared to study dated 03/26/2016 and correlated with chest CT dated 11/05/2015. The AP view is degraded by apical lordotic positioning and patient rotation. The heart is enlarged and there is atherosclerotic calcification of the thoracic aorta. The pulmonary vasculature is noncongested. Chronic interstitial thickening is unchanged. There is mild bibasilar atelectasis. No airspace consolidation or pleural effusion is identified. There is no pneumothorax. The skeletal structures are osteopenic. The bony thorax appears intact. IMPRESSION: Cardiomegaly with no acute cardiopulmonary abnormality. Electronically signed by: Shaun Huddleston M.D. Laboratory Results Test 02/14/17 15:53 02/14/17 15:56 02/14/17 17:00 Prothrombin Time 10.9 SECONDS (9.0-12.0) Prothromb Time International Ratio 1.0 (0.9-1.1) Activated Partial Thromboplast Time 25.4 SECONDS (21.0-31.0) Partial Thromboplastin Ratio 1.0 Lactic Acid Level 1.6 mmol/L (0.4-2.0) Magnesium Level 2.4 mg/dl (1.8-2.4) Total Bilirubin 1.1 mg/dl (0.2-1) Aspartate Amino Transf (AST/SGOT) 18 U/L (15-37) Alanine Aminotransferase (ALT/SGPT) 25 U/L (12-78) Alkaline Phosphatase 76 U/L (45-117) Pro-B-Type Natriuretic Peptide 8334 pg/ml (0-1800) Total Protein 7.6 gm/dl (6.4-8.2) Albumin 3.3 gm/dl (3.4-5.0) Globulin 4.3 gm/dl (2.5-4.0) Albumin/Globulin Ratio 0.8 (0.9-2) Lipase 93 U/L (73-393) Thyroid Stimulating Hormone (TSH) 1.570 uIu/ml (0.300-4.500) Urine Color YELLOW Urine Appearance TURBID (CLEAR) Urine pH 6.5 (4.5-7.5) Urine Specific [place] 1.014 (1.000-1.030) Urine Protein 2+ (NEG) Urine Glucose (UA) NEG (NEG) Urine Ketones TRACE (NEG) Urine Occult Blood 2+ (NEG) Urine Nitrite NEG (NEG) Urine Bilirubin NEG (NEG) Urine Urobilinogen NEG (NEG) Urine Leukocyte Esterase LARGE (NEG) Urine WBC (Auto) >30 /hpf (0-5) Urine RBC (Auto) 10-30 /hpf (0-4) Urine Hyaline Casts (Auto) 5-10 /lpf (0-5) Urine Epithelial Cells (Auto) >30 /lpf (0-5) Urine Bacteria (Auto) 4+ (NEG) Urine Pathogenic Casts /lpf (0) Date/Time Source Procedure Growth Status 02/14/17 16:08 Blood Blood Culture - Final Escherichia Coli Complete 02/14/17 17:00 Urine , Clean Catch Urine Culture - Final Escherichia Coli Complete Laboratory results per my review. Medications Administered Medications (Trade) Dose Ordered Sig/[place] Route Start Time Stop Time Status Last Admin Dose Admin Sodium Chloride 1,000 ml @ 250 mls/hr Q4H STAT IV 02/14/17 15:27 02/14/17 19:26 DC 02/14/17 16:27 250 MLS/HR Acetaminophen (Tylenol Tab) 1,000 mg NOW STAT PO 02/14/17 17:20 02/14/17 17:21 DC 02/14/17 17:31 1,000 MG Piperacillin Sod/ Tazobactam Sod (Zosyn Iv) 3.375 gm NOW STAT IV 02/14/17 17:28 02/14/17 17:30 DC 02/14/17 17:33 3.375 GM Aspirin/Aluminum/ Magnesium/Ca Carb (Ascriptin Tab) 325 mg NOW STAT PO 02/14/17 17:29 02/14/17 17:30 DC 02/14/17 17:50 325 MG Escitalopram Oxalate (Lexapro Tab) 10 mg Q2D@0900 PO 02/14/17 18:30 02/23/17 13:20 DC 02/22/17 08:15 10 MG Tramadol HCl (Ultram Tab) 50 mg Q6 PRN PO 02/14/17 18:30 02/23/17 13:20 DC 02/17/17 23:53 50 MG Sodium Chloride 1,000 ml @ 100 mls/hr Q10H IV 02/14/17 18:30 02/16/17 15:07 DC 02/16/17 09:47 100 MLS/HR Oxycodone HCl (Roxicodone Immediate Rel Tab) 10 mg Q6 PRN PO 02/14/17 18:30 02/23/17 13:20 DC 02/16/17 01:10 5 MG Acetaminophen (Tylenol Tab) 650 mg Q4H PRN PO 02/14/17 18:30 02/23/17 13:20 DC 02/21/17 23:43 650 MG Ondansetron HCl (Zofran Inj) 4 mg Q6H PRN IV 02/14/17 18:30 02/23/17 13:20 DC 02/16/17 13:17 4 MG ECG Indication: other (Tremors) Rate (beats per minute): 85 Rhythm: normal sinus Findings: T-wave inversion (Lead III), no acute ischemic change, other (Normal axis. Normal intervals. Low voltage. Baseline artifact) ED Course 1510: The patient was evaluated in room B9. A complete history and physical exam was performed. 1527: Ordered Sodium Chloride 1000 ml @ 250 mls/hr IV. 1710: I reassessed the patient. I updated her on her results. 1720: Ordered Tylenol Tab 1000 mg PO. 1728: Ordered Zosyn 3.375 gm IV, Ascriptin Tab 325 mg PO. 1741: Upon reevaluation, the patient is resting comfortably. I discussed the findings and the treatment plan with the patient. She expresses agreement and understanding. I spoke with [place] [facility]. The patient will be evaluated for further management. 182: I updated the patient's grand-daughter by phone. Medical Decision Differential diagnosis: Etiologies such as sepsis, UTI, pneumonia, metabolic, electrolyte abnormalities , cardiac sources, intracerebral event, toxicologic, neurologic, as well as others were entertained. Blood pressure screening: Patient was found to have a slightly elevated blood pressure due to circumstances. I do not believe that the patient requires hypertension monitoring. Medication Reconciliation: I attest that I have personally reviewed the patient' s current medication list. Pt here with worsening renal function in setting of acute on chronic kidney disease. troponin elevated however no sx to suggest ACS and ekg reassuring, more likely related to kidney dysfunction. Doubt CHF. Pt covered with antibiotics and given IVF. Pt aware of all results. Doubt bacteremia/sepsis at this time. VS stable. Cultures sent. No clinical sx of pyelonephritis on evaluation, however discussed renal imaging with admitting team. I do not suspect any occult trauma based on low risk slide out of bed onto floor. Pt mentating well throughout. Doubt additional pulmonary infection. Consults Time Called: 1740 Consulting Physician: Dr. [place]ett [place] [place] Returned Call: [phone] I reviewed the patient's case with Dr. Pickett. [facility] [place] the patient for further management. Impression Primary Impression: UTI (urinary tract infection) Additional Impressions: Elevated troponin Acute renal failure superimposed on stage 3 chronic kidney disease Scribe Attestation The scribe's documentation has been prepared under my direction and personally reviewed by me in its entirety. I confirm that the note above accurately reflects all work, treatment, procedures, and medical decision making performed by me. Departure Information Dispostion Being Evaluated By Hospitalist Prescriptions Ciprofloxacin (Ciprofloxacin HCl) 250 Mg Tab 250 MG PO BID, #14 DOSE Prov: Devaughn Pickett M.D. 02/22/17 Valsartan (DIOVAN) 80 Mg Tab 80 MG PO BID, #60 TAB Prov: Devaughn Pickett M.D. 02/22/17 Referrals Jeyson Peña M.D. (PCP) Patient Instructions [facility] Problem Qualifiers Primary Impression: UTI (urinary tract infection) Urinary tract infection type: acute cystitis Hematuria presence: with hematuria Qualified Codes: N30.01 - Acute cystitis with hematuria Additional Impressions: Acute renal failure superimposed on stage 3 chronic kidney disease Acute renal failure type: unspecified Qualified Codes: N17.9 - Acute kidney failure, unspecified; N18.3 - Chronic kidney disease, stage 3 (moderate)
== END 2017-02-23 13:19 | disposition home health service (06) | DRG 872 ==
LOC: C.EDB 14:47 → C.2E 18:33 → ENRESERV 18:41 → C.4E 02-20 17:55
PROVIDERS: ADMIT Internal Medicine; ATTEND Internal Medicine
DX: A41.51 Sepsis due to Escherichia coli [E. coli] (principal); N12 Tubulo-interstitial nephritis, not specified as acute or chronic; N17.9 Acute kidney failure, unspecified; I50.30 Unspecified diastolic (congestive) heart failure; N18.3 Chronic kidney disease, stage 3 (moderate); E11.21 Type 2 diabetes mellitus with diabetic nephropathy; R65.20 Severe sepsis without septic shock; K21.9 Gastro-esophageal reflux disease without esophagitis; J44.9 Chronic obstructive pulmonary disease, unspecified; I27.2 Other secondary pulmonary hypertension; R09.02 Hypoxemia; M51.86 Other intervertebral disc disorders, lumbar region; Z82.49 Family history of ischemic heart disease and other diseases of the circulatory system; Z79.82 Long term (current) use of aspirin; Z79.4 Long term (current) use of insulin; Z96.649 Presence of unspecified artificial hip joint; Z88.2 Allergy status to sulfonamides

== ENCOUNTER → 2017-07-19 | Outpatient (CLI) | payer BC ==
[~2017-07-19] MED LIST changes: +ALBU18002 INH; -ALBU1AER9 INH; +ALLO100T PO; -ALLO1TAB51 PO; -ALPPOPS5 TOP; +CALC-393 PO; -CALCTAB5 PO; +CIPR250T5 PO; +DVN80 PO; -HYDR-5688 PO; -LISI-461 PO; -SILD1TAB25 PO; +SIMV40TA2 PO; +SPRIN/30 INH; -TIOTCAP INH; +TRAM-10 PO; -ZCR40 PO
--- NOTE | 2017-07-19 12:25 | DIAGNOSTIC IMAGING REPORT ---
(CHEST) THORAX WITHOUT CT DOSE: 286.47 mGycm HISTORY: Lung nodule pleural effusion TECHNIQUE: Multiaxial CT images of the chest were performed without contrast. A dose lowering technique was utilized adhering to the principles of ALARA. COMPARISON: 11/05/2015 FINDINGS: Improved exam. The bilateral pleural effusions on the prior study have resolved. Interstitial prominence of the right and to a lesser extent left lung base is considered chronic and unchanged. 6 mm nodule medial left base transaxial image 32 is unaltered. No significant new or interval nodular pathology. Mediastinal and hilar adenopathy is improved from the prior exam. Largest precarinal node now measures 11 mm diminished from the prior study of 18 mm. Similar improvement is seen in the para para-aortic nodes as well as subcarinal nodes. Stable atherosclerotic change thoracic aorta. Mild stable cardiomegaly. Unchanging left adrenal adenoma. IMPRESSION: 1. Improved exam from the prior study. 2. The bilateral pleural effusions in the prior study have resolved. 3. Stable chronic interstitial change right and left base. 4. Stable 6 mm nodular density medial left base. 5. Improved mediastinal adenopathy with minimal residual. 6. Unchanging left adrenal adenoma. The above report was generated using voice recognition software. It may contain grammatical, syntax or spelling errors. Electronically signed by: Clovis Arizmendi M.D. 07/19/2017 12:23 PM Dictated Date/Time: 07/19/2017 12:17 PM
== END | disposition home or self-care (01) ==
LOC: C.CTS 11:24
PROVIDERS: ATTEND Internal Medicine Critical Care Medicine
DX: I51.9 Heart disease, unspecified (principal)

== ENCOUNTER → 2017-08-11 | Outpatient (CLI) | payer BC ==
[~2017-08-11] MED LIST changes: +CIPR250T26 PO; -CIPR250T5 PO
[2017-08-11 15:45] LABS: HEMATOCRIT 34.8 % (37-47); HEMOGLOBIN 11.3 g/dL (12.0-16.0); MEAN CELL VOLUME 94.3 fL (80-100); MEAN CORPUSCULAR HEMOGLOBIN 30.6 pg (25-34); MEAN CORPUSCULAR HGB CONC 32.5 g/dl (32-36); MEAN PLATELET VOLUME 10.8 fL (7.4-10.4); PLATELET COUNT 188 K/uL (130-400); RED CELL DISTRIBUTION WIDTH CV 14.4 % (11.5-14.5); RED CELL DISTRIBUTION WIDTH SD 49.3 fL (36.4-46.3); WHITE BLOOD COUNT 8.04 K/uL (4.8-10.8)
[2017-08-11 16:25] LABS: GLUCOSE 204 mg/dl (70-99)
[2017-08-11 16:26] LABS: ALBUMIN 3.9 gm/dl (3.4-5.0); BLOOD UREA NITROGEN 48 mg/dl (7-18); CALCIUM 9.1 mg/dl (8.5-10.1); CARBON DIOXIDE 24 mmol/L (21-32); CREATININE 1.89 mg/dl (0.60-1.20); PHOSPHORUS 3.9 mg/dl (2.5-4.9); POTASSIUM 4.3 mmol/L (3.5-5.1); SODIUM 137 mmol/L (136-145); TRANSFERRIN 239 mg/dl (200-360)
== END | disposition home or self-care (01) ==
LOC: C.LAB1850 14:48
PROVIDERS: ATTEND Internal Medicine Nephrology
DX: I12.9 Hypertensive chronic kidney disease with stage 1 through stage 4 chronic kidney disease, or unspecified chronic kidney disease (principal); N18.3 Chronic kidney disease, stage 3 (moderate); R60.9 Edema, unspecified; D64.9 Anemia, unspecified; E87.1 Hypo-osmolality and hyponatremia; E55.9 Vitamin D deficiency, unspecified

== ENCOUNTER → 2017-11-03 | Outpatient (CLI) | payer BC ==
[~2017-11-03] MED LIST changes: +CIPR250T23 PO; -CIPR250T26 PO
[2017-11-04 06:23] LABS: HEMOGLOBIN A1C 6.6 % (4.5-5.6)
== END | disposition home or self-care (01) ==
LOC: C.LAB1850 13:30
PROVIDERS: ATTEND Nurse Practitioner Family
DX: E11.29 Type 2 diabetes mellitus with other diabetic kidney complication (principal)

== ENCOUNTER → 2018-04-07 | Outpatient (CLI) | payer BC ==
[~2018-04-07] MED LIST changes: -CIPR250T23 PO; +CIPR250T26 PO
[2018-04-08 05:58] LABS: HEMOGLOBIN A1C 6.6 % (4.5-5.6)
== END | disposition home or self-care (01) ==
LOC: C.LAB1850 16:04
PROVIDERS: ATTEND Nurse Practitioner Family
DX: E11.21 Type 2 diabetes mellitus with diabetic nephropathy (principal)

== ENCOUNTER 2019-08-22 01:22 | Observation (INO) ==
[2019-08-22] MEDS ORDERED: ASPIRIN CHEW 324 MG PO STA (01:32)
--- NOTE | 2019-08-22 01:57 | Emergency Department Note ---
Entered by Anirudh Moore acting as a scribe for History of Present Illness General Chief complaint: GI Assessment Stated complaint: CHEST DISCOMFORT,LOW BLOOD SUGAR Time Seen by Provider: 08/22/19 01:32 Source: patient History of Present Illness Onset (ago): day(s) (last night at 1830) Location: chest Pain Consistency: + now resolved Current Pain Intensity: 0 Quality: + other (indigestion) The patient is an 84 year old female who presents to the emergency department with complaints of resolved chest pain beginning at last night at 1830. The patient states that she developed chest pain that felt like indigestion last night. She notes that she drank a small coke with no relief of her symptoms. She reports that her pain lasted for 3-4 hours and resolved on its own. The patient states that she has a history of Afib and heart failure, and she notes that she takes Eliquis. Home Medications Home Medications Medication Instructions Recorded Confirmed Type Symbicort 2 puff INHALATION Q12H 05/13/18 08/22/19 History allopurinol 200 mg PO QAM 05/13/18 08/22/19 History calcium carbonate [Calcium 600] 600 mg PO BID 05/13/18 08/22/19 History glucosamine-chondroitin [Osteo 2 tab PO BID 05/13/18 08/22/19 History Bi-Flex] multivitamin 1 cap PO QAM 05/13/18 08/22/19 History simvastatin 40 mg PO HS 05/13/18 08/22/19 History amoxicillin 500 mg capsule 2,000 mg PO ONCE PRN cap 03/17/19 08/22/19 History acetaminophen 500 mg tablet 500 mg PO BID PRN tab 05/11/19 08/22/19 History carvedilol 3.125 mg tablet 3.125 mg PO BID #90 tab 05/15/19 08/22/19 Rx gabapentin 600 mg tablet 600 mg PO TID #90 tab 05/15/19 08/22/19 Rx pantoprazole 40 mg tablet,delayed 40 mg PO QAM #90 tab 05/15/19 08/22/19 Rx release telmisartan 40 mg tablet 40 mg PO DAILY #90 tab 05/15/19 08/22/19 Rx blood sugar diagnostic #10 ea 05/23/19 07/18/19 History ferrous sulfate 325 mg (65 mg 650 mg PO DAILY tab 05/23/19 08/22/19 History iron) tablet insulin aspart U-100 100 unit/mL See Rx Instructions SUBCUT .COMPLEX 05/23/19 08/22/19 History (3 mL) subcutaneous pen lancets 25 gauge #100 ea 05/23/19 07/18/19 History pen needle, diabetic 32 gauge x #10 ea 05/23/19 07/18/19 History 5/32" albuterol sulfate 90 mcg/actuation 2 puffs INHALATION QID PRN #1 ea 06/15/19 08/22/19 Rx breath activated powder inhaler tiotropium bromide 18 mcg capsule 1 cap INH DAILY #90 cap 06/15/19 08/22/19 Rx with inhalation device insulin glargine U-300 conc 300 See Rx Instructions SUBCUT HS #0 07/07/19 08/22/19 Rx unit/mL (1.5 mL) subcutaneous pen box nebulizers #1 ea 07/18/19 07/18/19 Rx levalbuterol HCl 1.25 mg/3 mL 1.25 mg INH Q4H PRN #90 ml 07/28/19 08/22/19 Rx solution for nebulization apixaban 2.5 mg tablet 2.5 mg PO BID #180 tab 08/02/19 08/22/19 Rx furosemide 40 mg tablet 40 mg PO DAILY PRN #90 tab 08/08/19 08/22/19 Rx Allergies Allergy/AdvReac Type Severity Reaction Status Date / Time Sulfa (Sulfonamide Allergy Severe ANAPHYLAXIS; Verified 08/22/19 02:13 Antibiotics) TAKES AMARYL W/O REACTION allopurinol Allergy Unknown Verified 08/22/19 02:13 Cephalosporins AdvReac Intermediate KEFLEX Verified 08/22/19 02:13 ALLERGY -NAUSEA Thyroid Allergy Intermediate "THYROID Uncoded 08/22/19 02:13 AGENTS" Past Med/Surg History Medical History (Updated 08/22/19 @ 04:46 by Anirudh Moore) Asthma (Chronic) STABLE CAD (coronary artery disease) (Chronic) NON-OBSTRUCTIVE Chronic back pain (Chronic) RLE RADICULOPATHY Chronic kidney disease, stage III (moderate) Congestive heart failure (Chronic) DIASTOLIC COPD (chronic obstructive pulmonary disease) (Chronic) STABLE Depression (Chronic) Diabetes mellitus, type 2 (Chronic) GERD (gastroesophageal reflux disease) (Chronic) CONTROLLED Gout (Chronic) Headache (Chronic) REASON FOR PROCEDURE Heart failure Hiatal hernia (Chronic) History of blood transfusion (Resolved) S/P HIP SURGERY History of central retinal artery occlusion (Chronic) History of hypothyroidism (Chronic) EUTHYROID ON MORE RECENT TESTING Hyperlipidemia (Chronic) Hypertension (Chronic) Hyponatremia Nocturnal hypoxemia (Chronic) ON O2 2L HS Osteoarthritis (Chronic) Pulmonary HTN (Chronic) SEVERE PULMONARY HTN (RVSP > 60MMHG) Seizure (Chronic) 15 YEARS AGO; NO ISSUES SINCE Tremor (Chronic) ESSENTIAL TREMOR (HEAD) Valvular disease (Chronic) MODERATE TO SEVERE TR. MODERATE AV SCLEROSIS Surgical History History of cardiac cath (Resolved) 2008= NO STENTS History of dilation and curettage (Resolved) History of surgery (Resolved) CYSTOCELE REPAIR RECOTOCELE REPAIR History of temporal artery biopsy (Resolved) 02/08/14= MAC SEDATION WITHOUT ISSUES AT 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 and A total of 10 systems reviewed and were otherwise negative Physical Exam Vital Signs Vital Signs - 24 hr 08/22/19 01:24 08/22/19 01:39 08/22/19 01:48 Temperature 36.3 C L Temperature Source Oral Pulse Rate 86 83 Pulse Rate from SpO2 Sensor 81 Respiratory Rate 18 16 Respiratory Effort / Characteristics Non-Labored Spontaneous Respiratory Depth Normal Blood Pressure 158/79 H 156/85 H Blood Pressure Mean 105 120 Pulse Oximetry 98 97 Oxygen Delivery Method Room Air Room Air Room Air Sepsis Recent Fever Within 48 Hours No Sepsis New/Unexplained Change in Mental Status No Sepsis Action Taken by Nursing No Action Required 08/22/19 02:00 08/22/19 02:31 08/22/19 03:00 Temperature Temperature Source Pulse Rate 83 75 77 Pulse Rate from SpO2 Sensor 79 75 78 Respiratory Rate 24 21 22 Respiratory Effort / Characteristics Respiratory Depth Blood Pressure 137/85 146/54 H 119/81 Blood Pressure Mean 101 78 100 Pulse Oximetry 97 96 95 Oxygen Delivery Method Sepsis Recent Fever Within 48 Hours Sepsis New/Unexplained Change in Mental Status Sepsis Action Taken by Nursing 08/22/19 03:31 08/22/19 04:00 08/22/19 04:30 Temperature Temperature Source Pulse Rate 77 72 76 Pulse Rate from SpO2 Sensor 77 72 Respiratory Rate 20 21 18 Respiratory Effort / Characteristics Respiratory Depth Blood Pressure 142/99 H 129/82 134/82 Blood Pressure Mean 130 103 111 Pulse Oximetry 95 96 Oxygen Delivery Method Sepsis Recent Fever Within 48 Hours Sepsis New/Unexplained Change in Mental Status Sepsis Action Taken by Nursing 08/22/19 04:56 Temperature Temperature Source Pulse Rate 82 Pulse Rate from SpO2 Sensor 80 Respiratory Rate 17 Respiratory Effort / Characteristics Respiratory Depth Blood Pressure 134/82 Blood Pressure Mean 111 Pulse Oximetry 97 Oxygen Delivery Method Sepsis Recent Fever Within 48 Hours Sepsis New/Unexplained Change in Mental Status Sepsis Action Taken by Nursing Vital signs reviewed. General: Well-appearing female, in no significant distress. HEENT: No conjunctival injection, moist mucous membranes. Cardiovascular: Regular rate and rhythm, systolic ejection murmur. Pulmonary: Clear to auscultation bilaterally, normal work of breathing. Abdomen: Soft, nontender, nondistended, positive bowel sounds. Musculoskeletal: Atraumatic, no peripheral edema. Neurologic: Patient awake alert and oriented x 3. Skin: Warm, dry, no rash Course Course 0145: The patient was evaluated in room B2. A complete history and physical exam was performed. 0325: I reevaluated and updated the patient. 0432: Upon reevaluation, the patient is stable. I discussed the findings and the treatment plan with the patient. She expresses agreement and understanding. I [place] [facility] [place] The patient will be evaluated for further management. Consultations Consultation #1: I reviewed the patient's case with Dr. Oropeza [place] [facility] He will evaluate the patient for further management. Time: 04:32 Administered Medications Discontinued Medications Aspirin (Aspirin) 324 mg PO NOW STA Stop: 08/22/19 01:33 Last Admin: 08/22/19 01:53 Dose: 324 mg Documented by: [id number] Famotidine (Pepcid 20mg Iv Push) 20 mg IV ONE STA Stop: 08/22/19 02:50 Last Admin: 08/22/19 03:05 Dose: 20 mg Documented by: [id number] Medical Decision Making Differential Diagnosis Differential diagnosis: Etiologies such as shingles, musculoskeletal pain, pericarditis, myocarditis, cardiac ischemia, pericardial tamponade, pneumonia, pneumothorax, pleural effusion, hemothorax, pleurisy, aortic pathology, pulmonary embolism, intra- abdominal process, as well as others were considered. Medical Records Attestation: I reviewed the patient's medical records. Home Medications Current Medication List: was personally reviewed by me Laboratory Data Attestation: I reviewed the patient's lab results. Result diagrams: 08/22/19 01:45 08/22/19 01:45 Lab Results 08/22/19 08/22/19 08/22/19 Range/Units 01:37 01:45 01:45 WBC 11.41 H (4.8-10.8) K/uL RBC 3.42 L (4.2-5.4) M/uL Hgb 10.4 L (12.0-16.0) g/dL Hct 32.3 L (37-47) % MCV 94.4 (80-100) fL MCH 30.4 (25-34) pg MCHC 32.2 (32-36) g/dL RDW Std Deviation 49.1 H (36.4-46.3) fL RDW Coeff of Terri 14.4 (11.5-14.5) % Plt Count 262 (130-400) K/uL MPV 10.2 (7.4-10.4) fL Immature Gran % (Auto) 0.5 % Neut % (Auto) 75.1 % Lymph % (Auto) 13.0 % Archuleta % (Auto) 7.9 % Eos % (Auto) 3.2 % Baso % (Auto) 0.3 % Immature Gran # (Auto) 0.06 H (0.00-0.02) K/uL Neut # (Auto) 8.57 H (1.4-6.5) K/uL Lymph # (Auto) 1.48 (1.2-3.4) K/uL Archuleta # (Auto) 0.90 H (0.11-0.59) K/uL Eos # (Auto) 0.37 (0-0.5) K/uL Baso # (Auto) 0.03 (0-0.2) K/uL Sodium 134 L (136-145) mmol/L Potassium 4.8 (3.5-5.1) mmol/L Chloride 103 (98-107) mmol/L Carbon Dioxide 24 (21-32) mmol/L Anion Gap 7.0 (3-11) BUN 40 H (7-18) mg/dl Creatinine 1.55 H (0.6-1.2) mg/dl Est Cr Clr Drug Dosing 22.5 ml/min Est GFR ( Amer) 35.0 Est GFR (Non-Af Amer) 30.2 BUN/Creatinine Ratio 25.9 H (10-20) Glucose 117 H (70-99) mg/dl POC Glucose 124 H (70-99) Calcium 8.5 (8.5-10.1) mg/dl Total Bilirubin 0.4 (0.2-1) mg/dl AST 29 (15-37) U/L ALT 41 (12-78) U/L Alkaline Phosphatase 88 (45-117) U/L Troponin I < 0.015 (0-0.045) ng/ml Total Protein 7.3 (6.4-8.2) gm/dl Albumin 2.9 L (3.4-5.0) gm/dl Globulin 4.4 H (2.5-4.0) gm/dl Albumin/Globulin Ratio 0.7 L (0.9-2) Lipase 178 (73-393) U/L 08/22/19 Range/Units 03:12 WBC (4.8-10.8) K/uL RBC (4.2-5.4) M/uL Hgb (12.0-16.0) g/dL Hct (37-47) % MCV (80-100) fL MCH (25-34) pg MCHC (32-36) g/dL RDW Std Deviation (36.4-46.3) fL RDW Coeff of Terri (11.5-14.5) % Plt Count (130-400) K/uL MPV (7.4-10.4) fL Immature Gran % (Auto) % Neut % (Auto) % Lymph % (Auto) % Archuleta % (Auto) % Eos % (Auto) % Baso % (Auto) % Immature Gran # (Auto) (0.00-0.02) K/uL Neut # (Auto) (1.4-6.5) K/uL Lymph # (Auto) (1.2-3.4) K/uL Archuleta # (Auto) (0.11-0.59) K/uL Eos # (Auto) (0-0.5) K/uL Baso # (Auto) (0-0.2) K/uL Sodium (136-145) mmol/L Potassium (3.5-5.1) mmol/L Chloride (98-107) mmol/L Carbon Dioxide (21-32) mmol/L Anion Gap (3-11) BUN (7-18) mg/dl Creatinine (0.6-1.2) mg/dl Est Cr Clr Drug Dosing ml/min Est GFR ( Amer) Est GFR (Non-Af Amer) BUN/Creatinine Ratio (10-20) Glucose (70-99) mg/dl POC Glucose (70-99) Calcium (8.5-10.1) mg/dl Total Bilirubin (0.2-1) mg/dl AST (15-37) U/L ALT (12-78) U/L Alkaline Phosphatase (45-117) U/L Troponin I 0.016 (0-0.045) ng/ml Total Protein (6.4-8.2) gm/dl Albumin (3.4-5.0) gm/dl Globulin (2.5-4.0) gm/dl Albumin/Globulin Ratio (0.9-2) Lipase (73-393) U/L Imaging Data Attestation: I personally reviewed and interpreted this imaging study as follows: My Impression: CHEST X-RAY: Cardiomegaly. No focal lung consolidation. Mild perihilar fullness. ECG Data Attestation: I personally reviewed and interpreted this ECG as follows: Indication: + chest pain Rate (beats per minute): 82 Rhythm: + atrial flutter (with a variable AV block) ECG ST segments: + T-wave inversions (Inferior) Comparison ECG Date: from (05/17/2018) Change: the following changes noted (Compared to prior, atrial flutter has r eplaced sinus rhythm.) Additional Comments: Normal QTC at 434, nonspecific ST change laterally, previous septal infarct, low voltage. EKG #2: Aflutter with a variable AV block, 76, QTC 450, rightward axis, previous septal infarct, no significant change from previous. Cardiac monitoring was ordered. Patient was found to be in a normal sinus rhythm 86 bpm. Blood Pressure Blood Pressure Findings: Elevated blood pressure Blood Pressure Disposition: further management by hospitalist MDM Narrative This patient was evaluated and appeared to be in no significant distress. IV access was obtained and laboratory work was drawn. Patient was placed on the environmental management specialist and found to be in a normal sinus rhythm at 86 bpm. She was given 324 mg of aspirin to chew. EKG reveals no evidence of acute ischemic change. Chest x-ray is largely clear to my interpretation. Initial troponin was <0.015. A second troponin was obtained and is 0.016. Repeat EKG was performed and reveals no significant change. Although this does not represent a significant tire changer a short interval, due to the patient's age and known history of coronary disease, the patient will be evaluated by the hospitalist service for further management. She is aware of the plan and agrees. Patient was first seen at 0132 in observation began at 0132 and was necessary in order to determine ACS risk. Upon reevaluation, 3 hours of observation revealed that the patient should be evaluated by the hospitalist for further management. Impression & Plan Precordial chest pain Discharge Plan Visit Data Chief Complaint: GI Assessment Stated Complaint: CHEST DISCOMFORT,LOW BLOOD SUGAR ED Provider: Suri Bansal Discharge Problem: Precordial chest pain Patient Disposition: Being Evaluated by Hospitalist Discharge Instructions Interventions: ED Discharge Assessment Last Done: 08/22/19 05:24 Forms Stand Alone Forms: [facility] [employer] Prescriptions Prescriptions: No Action carvedilol 3.125 mg tablet 3.125 mg PO BID Qty: 90 RF: 3 gabapentin 600 mg tablet 600 mg PO TID Qty: 90 RF: 3 pantoprazole 40 mg tablet,delayed release (DR/EC) 40 mg PO QAM Qty: 90 RF: 3 telmisartan 40 mg tablet 40 mg PO DAILY Qty: 90 RF: 3 Toujeo SoloStar U-300 Insulin 300 unit/mL (1.5 mL) insulin pen See Rx Instructions SUBCUT HS Qty: 0 RF: 3 Eliquis 2.5 mg tablet 2.5 mg PO BID Qty: 180 RF: 3 furosemide 40 mg tablet 40 mg PO DAILY PRN (Reason: Edema) Qty: 90 RF: 1 (DME) nebulizers misc See Rx Instructions .ROUTE .MEDSUPPLY Qty: 1 RF: 0 amoxicillin 500 mg capsule 2,000 mg PO ONCE PRN (Reason: dental work) RF: 0 (DME) OneTouch Ultra Blue Test Strip strip See Dose Instructions .ROUTE .MEDSUPPLY Qty: 10 RF: 0 (DME) TechLITE Lancets 25 gauge misc See Dose Instructions .ROUTE .MEDSUPPLY Qty: 100 RF: 0 (DME) pen needle, diabetic [BD Ultra-Fine Vielka Pen Needle] 32 gauge x 5/32" needle See Dose Instructions .ROUTE .MEDSUPPLY Qty: 10 RF: 0 Spiriva with HandiHaler 18 mcg capsule, w/inhalation device 1 cap INH DAILY Qty: 90 RF: 1 albuterol sulfate 90 mcg/actuation aerosol powdr breath activated 2 puffs INHALATION QID PRN (Reason: Wheezing) Qty: 1 RF: 3 levalbuterol HCl 1.25 mg/3 mL solution for nebulization 1.25 mg INH Q4H PRN (Reason: shortness of breath or wheezing) Qty: 90 RF: 3 allopurinol 100 mg Tablet 200 mg PO QAM RF: 0 simvastatin 40 mg Tablet 40 mg PO HS RF: 0 calcium carbonate [Calcium 600] 600 mg calcium (1,500 mg) Tablet 600 mg PO BID RF: 0 multivitamin Capsule 1 cap PO QAM RF: 0 glucosamine-chondroitin [Osteo Bi-Flex] 250-200 mg Tablet 2 tab PO BID RF: 0 Symbicort 160-4.5 mcg/actuation Hfa Aerosol Inhaler 2 puff INHALATION Q12H RF: 0 acetaminophen [Acetaminophen Extra Strength] 500 mg tablet 500 mg PO BID PRN (Reason: Pain) RF: 0 ferrous sulfate 325 mg (65 mg iron) tablet 650 mg PO DAILY RF: 0 Novolog Flexpen U-100 Insulin 100 unit/mL (3 mL) insulin pen See Rx Instructions SUBCUT .COMPLEX RF: 0 Referrals Referrals: Jeyson Peña MD [Primary Care Provider] - The scribe's documentation has been prepared under my direction and personally reviewed by me in its entirety. I confirm that the note above accurately reflects all work, treatment, procedures, and medical decision making performed by me.
[2019-08-22 02:01] LABS: Basophils # (auto) 0.03 K/uL (0-0.2); Basophils % (auto) 0.3 %; Eosinophils # (auto) 0.37 K/uL (0-0.5); Eosinophils % (auto) 3.2 %; Hematocrit (blood only) 32.3 % (37-47); Hemoglobin 10.4 g/dL (12.0-16.0); Immature Granulocytes # (auto) 0.06 K/uL (0.00-0.02); Immature Granulocytes % (auto) 0.5 %; Lymphocytes # (auto) 1.48 K/uL (1.2-3.4); Mean Corpuscular Hemoglobin 30.4 pg (25-34); Mean Corpuscular Hgb Conc 32.2 g/dL (32-36); Mean Corpuscular Volume 94.4 fL (80-100); Mean Platelet Volume 10.2 fL (7.4-10.4); Monocytes % (auto) 7.9 %; Neutrophils # (auto) 8.57 K/uL (1.4-6.5); Neutrophils % (auto) 75.1 %; Platelet Count 262 K/uL (130-400); RDW Coefficient of Variation 14.4 % (11.5-14.5); RDW Standard Deviation 49.1 fL (36.4-46.3); Red Blood Count 3.42 M/uL (4.2-5.4); White Blood Count 11.41 K/uL (4.8-10.8)
[2019-08-22 02:30] LABS: Aspartate Aminotransferase 29 U/L (15-37); Glucose 117 mg/dl (70-99)
[2019-08-22 02:31] LABS: Alanine Aminotransferase 41 U/L (12-78)
[2019-08-22 02:32] LABS: Albumin Globulin Ratio 0.7 (0.9-2); Albumin Level 2.9 gm/dl (3.4-5.0); Alkaline Phosphatase 88 U/L (45-117); BUN Creatinine Ratio 25.9 (10-20); Bilirubin,Total 0.4 mg/dl (0.2-1); Blood Urea Nitrogen 40 mg/dl (7-18); Calcium 8.5 mg/dl (8.5-10.1); Carbon Dioxide 24 mmol/L (21-32); Chloride 103 mmol/L (98-107); Creatinine Clr Calc Pharmacy 22.5 ml/min; Est GFR (Non-African American) 30.2; Globulin 4.4 gm/dl (2.5-4.0); Lipase 178 U/L (73-393); Potassium 4.8 mmol/L (3.5-5.1); Sodium 134 mmol/L (136-145); Total Protein 7.3 gm/dl (6.4-8.2); Troponin I < 0.015 ng/ml (0-0.045)
[2019-08-22] MEDS ORDERED: FAMOTIDINE 20MG/5ML IV PUSH IV STA (02:49)
--- NOTE | 2019-08-22 05:22 | History & Physical Report ---
Date of Service August 22, 2019 Assessment & Plan (1) Precordial chest pain: 84-year-old female with a history of COPD, pulmonary hypertension, atrial flutter, hyperlipidemia, coronary artery disease, diabetes presents with substernal chest pain. Patient describes chest pain feeling like really bad indigestion, lasted approximately 6 hours, nonexertional. Has had associated shortness of breath, but thought to be connected to upper respiratory infection/chronic lung disease. She does have a history of coronary artery disease. Chest pain Admit to telemetry, continue to trend troponin. Keep n.p.o. for the time being Most recent echo 03/13/2019LVH noted, EF 65 to 70%, severe pulmonary hypertension noted Follows with [facility], Dr. Rios Hypertension/hyperlipidemia/atrial flutter Continue carvedilol, telmisartan, apixaban, simvastatin COPD/pulmonary hypertension Continue inhalers and nebulizerstiotropium, Symbicort, levalbuterol Diabetes Sliding scale insulin GERD Continue Protonix, Pepcid given in the ED DVT prophylaxis Continue home Eliquis CODE STATUS Full code FEN N.p.o. (2) Chronic kidney disease, stage III (moderate): (3) Chronic anticoagulation: (4) Atrial fibrillation: (5) COPD (chronic obstructive pulmonary disease): (6) CAD (coronary artery disease): (7) Hypertension: (8) Hyperlipidemia: (9) Depression: (10) Diabetes mellitus, type 2: (11) GERD (gastroesophageal reflux disease): History of Present Illness Primary Care Provider: Jeyson Peña MD 84-year-old female with a history of COPD, pulmonary hypertension, atrial flutter, hyperlipidemia, coronary artery disease, diabetes presents with substernal chest pain. She states that the pain began this evening approximately around 6:00. She was sitting watching TV at the time. She describes the pain as similar to indigestion, but much worse. She denies any radiation of the pain. She has had chronic associated shortness of breath. She denies that the pain was worse with exertion. She describes having similar pain intermittently over the past couple weeks. In addition, she has had periods of shortness of breath. She describes having URI symptoms including scratchy throat, congestion. She denies any nausea, vomiting, fevers, chills and diarrhea. She denies any swelling in her legs. Patient is never been a smoker. Father of heart attack. Allergies Allergy/AdvReac Type Severity Reaction Status Date / Time Sulfa (Sulfonamide Allergy Severe ANAPHYLAXIS; Verified 08/22/19 02:13 Antibiotics) TAKES AMARYL W/O REACTION allopurinol Allergy Unknown Verified 08/22/19 02:13 Cephalosporins AdvReac Intermediate KEFLEX Verified 08/22/19 02:13 ALLERGY -NAUSEA Thyroid Allergy Intermediate "THYROID Uncoded 08/22/19 02:13 AGENTS" Home Medications Home Medications Medication Instructions Recorded Confirmed Type Symbicort 2 puff INHALATION Q12H 05/13/18 08/22/19 History allopurinol 200 mg PO QAM 05/13/18 08/22/19 History calcium carbonate [Calcium 600] 600 mg PO BID 05/13/18 08/22/19 History glucosamine-chondroitin [Osteo 2 tab PO BID 05/13/18 08/22/19 History Bi-Flex] multivitamin 1 cap PO QAM 05/13/18 08/22/19 History simvastatin 40 mg PO HS 05/13/18 08/22/19 History amoxicillin 500 mg capsule 2,000 mg PO ONCE PRN cap 03/17/19 08/22/19 History acetaminophen 500 mg tablet 500 mg PO BID PRN tab 05/11/19 08/22/19 History carvedilol 3.125 mg tablet 3.125 mg PO BID #90 tab 05/15/19 08/22/19 Rx gabapentin 600 mg tablet 600 mg PO TID #90 tab 05/15/19 08/22/19 Rx pantoprazole 40 mg tablet,delayed 40 mg PO QAM #90 tab 05/15/19 08/22/19 Rx release telmisartan 40 mg tablet 40 mg PO DAILY #90 tab 05/15/19 08/22/19 Rx blood sugar diagnostic #10 ea 05/23/19 07/18/19 History ferrous sulfate 325 mg (65 mg 650 mg PO DAILY tab 05/23/19 08/22/19 History iron) tablet insulin aspart U-100 100 unit/mL See Rx Instructions SUBCUT .COMPLEX 05/23/19 08/22/19 History (3 mL) subcutaneous pen lancets 25 gauge #100 ea 05/23/19 07/18/19 History pen needle, diabetic 32 gauge x #10 ea 05/23/19 07/18/19 History 5/32" albuterol sulfate 90 mcg/actuation 2 puffs INHALATION QID PRN #1 ea 06/15/19 08/22/19 Rx breath activated powder inhaler tiotropium bromide 18 mcg capsule 1 cap INH DAILY #90 cap 06/15/19 08/22/19 Rx with inhalation device insulin glargine U-300 conc 300 See Rx Instructions SUBCUT HS #0 07/07/19 08/22/19 Rx unit/mL (1.5 mL) subcutaneous pen box nebulizers #1 ea 07/18/19 07/18/19 Rx levalbuterol HCl 1.25 mg/3 mL 1.25 mg INH Q4H PRN #90 ml 07/28/19 08/22/19 Rx solution for nebulization apixaban 2.5 mg tablet 2.5 mg PO BID #180 tab 08/02/19 08/22/19 Rx furosemide 40 mg tablet 40 mg PO DAILY PRN #90 tab 08/08/19 08/22/19 Rx azithromycin 250 mg PO DAILY 4 Days #4 tab 08/22/19 Rx Past Med/Surg History Medical History (Updated 08/22/19 @ 15:18 by Diane Cox DO) Asthma (Chronic) STABLE CAD (coronary artery disease) (Chronic) NON-OBSTRUCTIVE Chronic back pain (Chronic) RLE RADICULOPATHY Chronic kidney disease, stage III (moderate) Congestive heart failure (Chronic) DIASTOLIC COPD (chronic obstructive pulmonary disease) (Chronic) STABLE Depression (Chronic) Diabetes mellitus, type 2 (Chronic) GERD (gastroesophageal reflux disease) (Chronic) CONTROLLED Gout (Chronic) Headache (Chronic) REASON FOR PROCEDURE Heart failure Hiatal hernia (Chronic) History of blood transfusion (Resolved) S/P HIP SURGERY History of central retinal artery occlusion (Chronic) History of hypothyroidism (Chronic) EUTHYROID ON MORE RECENT TESTING Hyperlipidemia (Chronic) Hypertension (Chronic) Hyponatremia Nocturnal hypoxemia (Chronic) ON O2 2L HS Osteoarthritis (Chronic) Pulmonary HTN (Chronic) SEVERE PULMONARY HTN (RVSP > 60MMHG) Seizure (Chronic) 15 YEARS AGO; NO ISSUES SINCE Tremor (Chronic) ESSENTIAL TREMOR (HEAD) Valvular disease (Chronic) MODERATE TO SEVERE TR. MODERATE AV SCLEROSIS Surgical History History of cardiac cath (Resolved) 2008= NO STENTS History of dilation and curettage (Resolved) History of surgery (Resolved) CYSTOCELE REPAIR RECOTOCELE REPAIR History of temporal artery biopsy (Resolved) 02/08/14= MAC SEDATION WITHOUT ISSUES AT [facility] History of total hip arthroplasty (Resolved) LEFT Social History (Updated 05/12/19 @ 12:35 by Mary Mora) Preferred Language: Danish Communication Ability: Effective Visual Impairment: No Limitations [employer] Load [employer] Required: No Beliefs That Will Affect Care: None marital status: / Current Living Situation: Family current occupational status: retired Other Information That Helps Us Care for You: No Feels Safe at Home: Yes Safety Concerns: Feels Safe At This Time Smoking Status: Never smoker Second Hand Exposure: No ; Hx Alcohol Use: No Hx Substance Use: No Dental Care, Regularly: Yes Seatbelt Use: always Sunscreen Use: Yes Review of Systems Review of Systems: Constitutional; denies fevers, chills, night sweats HEENT; reports having a sore throat scratchy, nasal congestion Cardiac; reports having chest pain Pulmonary; reports having intermittent shortness of breath and cough Abdomen; denies abdominal pain, nausea/vomiting/diarrhea Physical Exam Constitutional: WD/WN, vitals as above Eyes: PERRL, conjunctivae normal, anicteric sclerae ENMT: external ear and nose normal, oropharynx normal Neck: trachea midline, no thyromegaly Respiratory: normal respiratory effort, lungs clear to auscultation Cardiovascular: RRR, no murmur, no edema Gastrointestinal (Abdomen): normal bowel sounds, soft, nontender, no hepatosplenomegaly Musculoskeletal: no cyanosis or clubbing, extremities motor strength 5/5 Skin: no rashes, warm and dry Neurologic: PERRL, EOMI, accommodation nl, no face palsy, no dysarthria Psychiatric: A+Ox3, euthymic affect Results & Data Vital Signs (Past 12 Hours) Vital Signs Temp Pulse Resp BP Pulse Ox 08/22/19 04:56 82 17 134/82 97 08/22/19 04:30 76 18 134/82 08/22/19 04:00 72 21 129/82 96 08/22/19 03:31 77 20 142/99 H 95 08/22/19 03:00 77 22 119/81 95 08/22/19 02:31 75 21 146/54 H 96 08/22/19 02:00 83 24 137/85 97 08/22/19 01:48 83 16 156/85 H 97 08/22/19 01:24 36.3 C L 86 18 158/79 H 98 Supervising Physician Co-Signing Physician Notes Attending addendum: I have physically seen this patient, have supervised the medical residents activities, and agree with the H&P unless as otherwise noted. Assessment and Plan: Precordial chest pain/atrial flutter/hypertension- The patient will be admitted to telemetry for serial cardiac enzymes, serial EKG's, cardiac rhythm monitoring. Continue carvedilol, telmisartan, apixaban. Consult her sales planning manager Dr. Rios. Diabetes mellitus- Patient Accu-Cheks before meals and at bedtime with NovoLog coverage per scale. COPD/pulmonary hypertension- Continue usual inhalers. Remainder of orders and notations as noted. Resident Activity Tracking Resident Involvement: Resident Care Provided Care Provided: Adult Hospital Medicine
[2019-08-22] MEDS ORDERED: ACETAMINOPHEN 500 MG TAB PO PRN (05:50)
[2019-08-22] MEDS ORDERED: POLYETHYLENE (MIRALAX) 17 GM PACK PO PRN (05:50)
[2019-08-22] MEDS ORDERED: ACETAMINOPHEN 325 MG TAB PO PRN (05:50)
[2019-08-22] MEDS ORDERED: LEVALBUTEROL HCL 1.25 MG/3 ML NEB INH PRN (05:50)
[2019-08-22] MEDS ORDERED: FUROSEMIDE 40 MG TAB PO PRN (05:50)
--- NOTE | 2019-08-22 07:27 | XRay Report ---
XR chest 1V portable CLINICAL HISTORY: Chest Pain COMPARISON STUDY: Chest CT July 19, 2017. Chest radiograph January 02, 2019. FINDINGS: Lung volumes are normal. Lungs are clear. There is no pneumothorax or pleural effusion. Mod erate cardiomegaly is unchanged. Mediastinal contours are normal. There is no evidence for pulmonary edema. IMPRESSION: No acute cardiopulmonary findings. No change in appearance of the chest. ACT 112: Negative or not required by law. Electronically signed by: Scottie Nova M.D. 08/22/2019 7:26 AM
[2019-08-22] MEDS ORDERED: INSULIN ASPART 100 UNITS/ML 3 ML PEN SC SCH (07:30)
--- NOTE | 2019-08-22 07:56 | Discharge Summary ---
Date of Service August 22, 2019 Admission HPI Per Admitting Provider 84-year-old female with a history of COPD, pulmonary hypertension, atrial flutter, hyperlipidemia, coronary artery disease, diabetes presents with substernal chest pain. She states that the pain began this evening zara roximately around 6:00. She was sitting watching TV at the time. She describes the pain as similar to indigestion, but much worse. She denies any radiation of the pain. She has had chronic associated shortness of breath. She denies that the pain was worse with exertion. She describes having similar pain intermittently over the past couple weeks. In addition, she has had periods of shortness of breath. She describes having URI symptoms including scratchy throat, congestion. She denies any nausea, vomiting, fevers, chills and diarrhea. She denies any swelling in her legs. Patient is never been a smoker. Father of heart attack. Admission Exam Per Admitting Provider Constitutional: WD/WN, vitals as above Eyes: PERRL, conjunctivae normal, anicteric sclerae ENMT: external ear and nose normal, oropharynx normal Neck: trachea midline, no thyromegaly Respiratory: normal respiratory effort, lungs clear to auscultation Cardiovascular: RRR, no murmur, no edema Gastrointestinal (Abdomen): normal bowel sounds, soft, nontender, no hepatosplenomegaly Musculoskeletal: no cyanosis or clubbing, extremities motor strength 5/5 Skin: no rashes, warm and dry Neurologic: PERRL, EOMI, accommodation nl, no face palsy, no dysarthria Psychiatric: A+Ox3, euthymic affect Discharge Data Allergies Allergy/AdvReac Type Severity Reaction Status Date / Time Sulfa (Sulfonamide Allergy Severe ANAPHYLAXIS; Verified 08/22/19 02:13 Antibiotics) TAKES AMARYL W/O REACTION allopurinol Allergy Unknown Verified 08/22/19 02:13 Cephalosporins AdvReac Intermediate KEFLEX Verified 08/22/19 02:13 ALLERGY -NAUSEA Thyroid Allergy Intermediate "THYROID Uncoded 08/22/19 02:13 AGENTS" Consultations 08/22/19 04:18 ED Decision to Admit Stat 08/22/19 05:50 Consult Case Management - Discharge Planning Routine Discharge Plan Discharge Items Reason For Visit: CHEST PAIN Medications and DC Order Prescriptions: No Action carvedilol 3.125 mg tablet 3.125 mg PO BID Qty: 90 RF: 3 gabapentin 600 mg tablet 600 mg PO TID Qty: 90 RF: 3 pantoprazole 40 mg tablet,delayed release (DR/EC) 40 mg PO QAM Qty: 90 RF: 3 telmisartan 40 mg tablet 40 mg PO DAILY Qty: 90 RF: 3 Toupeggy SoloStar U-300 Insulin 300 unit/mL (1.5 mL) insulin pen See Rx Instructions SUBCUT HS Qty: 0 RF: 3 Eliquis 2.5 mg tablet 2.5 mg PO BID Qty: 180 RF: 3 furosemide 40 mg tablet 40 mg PO DAILY PRN (Reason: Edema) Qty: 90 RF: 1 (DME) nebulizers misc See Rx Instructions .ROUTE .MEDSUPPLY Qty: 1 RF: 0 amoxicillin 500 mg capsule 2,000 mg PO ONCE PRN (Reason: dental work) RF: 0 (DME) OneTouch Ultra Blue Test Strip strip See Dose Instructions .ROUTE .MEDSUPPLY Qty: 10 RF: 0 (DME) TechLITE Lancets 25 gauge misc See Dose Instructions .ROUTE .MEDSUPPLY Qty: 100 RF: 0 (DME) pen needle, diabetic [BD Ultra-Fine Vielka Pen Needle] 32 gauge x 5/32" needle See Dose Instructions .ROUTE .MEDSUPPLY Qty: 10 RF: 0 Spiriva with HandiHaler 18 mcg capsule, w/inhalation device 1 cap INH DAILY Qty: 90 RF: 1 albuterol sulfate 90 mcg/actuation aerosol powdr breath activated 2 puffs INHALATION QID PRN (Reason: Wheezing) Qty: 1 RF: 3 levalbuterol HCl 1.25 mg/3 mL solution for nebulization 1.25 mg INH Q4H PRN (Reason: shortness of breath or wheezing) Qty: 90 RF: 3 allopurinol 100 mg Tablet 200 mg PO QAM RF: 0 simvastatin 40 mg Tablet 40 mg PO HS RF: 0 calcium carbonate [Calcium 600] 600 mg calcium (1,500 mg) Tablet 600 mg PO BID RF: 0 multivitamin Capsule 1 cap PO QAM RF: 0 glucosamine-chondroitin [Osteo Bi-Flex] 250-200 mg Tablet 2 tab PO BID RF: 0 Symbicort 160-4.5 mcg/actuation Hfa Aerosol Inhaler 2 puff INHALATION Q12H RF: 0 acetaminophen [Acetaminophen Extra Strength] 500 mg tablet 500 mg PO BID PRN (Reason: Pain) RF: 0 ferrous sulfate 325 mg (65 mg iron) tablet 650 mg PO DAILY RF: 0 Novolog Flexpen U-100 Insulin 100 unit/mL (3 mL) insulin pen See Rx Instructions SUBCUT .COMPLEX RF: 0 Admission Data Admit Date/Time: 08/22/19 05:08 Attending Provider: Wayne Oropeza Admit Provider: Italo Abernathy Primary Care Provider: Jeyson Peña Other Providers: Wayne Oropeza
[2019-08-22] MEDS ORDERED: carvediloL 3.125 MG TAB PO SCH (09:00)
[2019-08-22] MEDS ORDERED: BUDESONIDE/FORMOTEROL FUMARATE 160/4.5 60 PUFFS/INHALER INH SCH (09:00)
[2019-08-22] MEDS ORDERED: CALCIUM 600MG + VIT D 400 IU TAB PO SCH (09:00)
[2019-08-22] MEDS ORDERED: allopurinoL 100 MG TAB PO SCH (09:00)
[2019-08-22] MEDS ORDERED: APIXABAN 2.5 MG TAB PO SCH (09:00)
[2019-08-22] MEDS ORDERED: TELMISARTAN 40 MG TAB PO SCH (09:00)
[2019-08-22] MEDS ORDERED: TIOTROPIUM BROMIDE 5 PUFF/90 MCG INH INH SCH (09:00)
[2019-08-22] MEDS ORDERED: PANTOprazole 40 MG TAB PO SCH (09:00)
[2019-08-22] MEDS: GABAPENTIN 600 MG TAB PO SCH ×2 (09:40→13:56)
--- NOTE | 2019-08-22 10:06 | Electrocardiogram Report ---
Test Reason : Blood Pressure : / mmHG Vent. Rate : 082 BPM Atrial Rate : 357 BPM P-R Int : 000 ms QRS Dur : 076 ms QT Int : 372 ms P-R-T Axes : 000 101 -20 degrees QTc Int : 434 ms Probable Atrial fibrillation Rightward axis Low voltage QRS Septal infarct , age undetermined T wave abnormality, consider inferior ischemia Abnormal ECG When compared with ECG of 17-MAY-2018 09:53, Atrial fibrillation has replaced Sinus rhythm Septal infarct is now Present T wave inversion more evident in Inferior leads T wave amplitude has decreased in Anterior leads Confirmed by Juan R Bartholomew ([id number]) on 08/22/2019 10:05:57 AM Referred By: REFERRED SELF Confirmed By:Juan R Bartholomew
--- NOTE | 2019-08-22 10:10 | Electrocardiogram Report ---
Test Reason : Blood Pressure : / mmHG Vent. Rate : 076 BPM Atrial Rate : 394 BPM P-R Int : 000 ms QRS Dur : 070 ms QT Int : 400 ms P-R-T Axes : 000 106 000 degrees QTc Int : 450 ms Atrial fibrillation Rightward axis Septal infarct (cited on or before 22-AUG-2019) Abnormal ECG When compared with ECG of 22-AUG-2019 01:33, (unconfirmed) No significant change Confirmed by Juan R Bartholomew ([id number]) on 08/22/2019 10:09:37 AM Referred By: REFERRED SELF Confirmed By:Juan R Bartholomew
[2019-08-22] MEDS: INSULIN ASPART 100 UNITS/ML 3 ML PEN SC SCH ×2 (12:17→17:10)
--- NOTE | 2019-08-22 14:03 | Discharge Summary ---
Date of Service August 22, 2019 Admission HPI Per Admitting Provider 84-year-old female with a history of COPD, pulmonary hypertension, atrial flutter, hyperlipidemia, coronary artery disease, diabetes presents with substernal chest pain. She states that the pain began this evening zara roximately around 6:00. She was sitting watching TV at the time. She describes the pain as similar to indigestion, but much worse. She denies any radiation of the pain. She has had chronic associated shortness of breath. She denies that the pain was worse with exertion. She describes having similar pain intermittently over the past couple weeks. In addition, she has had periods of shortness of breath. She describes having URI symptoms including scratchy throat, congestion. She denies any nausea, vomiting, fevers, chills and diarrhea. She denies any swelling in her legs. Patient is never been a smoker. Father of heart attack. Admission Exam Per Admitting Provider Constitutional: WD/WN, vitals as above Eyes: PERRL, conjunctivae normal, anicteric sclerae ENMT: external ear and nose normal, oropharynx normal Neck: trachea midline, no thyromegaly Respiratory: normal respiratory effort, lungs clear to auscultation Cardiovascular: RRR, no murmur, no edema Gastrointestinal (Abdomen): normal bowel sounds, soft, nontender, no hepatosplenomegaly Musculoskeletal: no cyanosis or clubbing, extremities motor strength 5/5 Skin: no rashes, warm and dry Neurologic: PERRL, EOMI, accommodation nl, no face palsy, no dysarthria Psychiatric: A+Ox3, euthymic affect Principal Diagnosis GERD, pneumonia Discharge Exam Constitutional WD/WN, vitals as above Respiratory normal respiratory effort Auscultation: no wheezes small amount of crackles LLL Cardiovascular RRR, no murmur, no edema Gastrointestinal (Abdomen) normal bowel sounds, soft, nontender, no hepatosplenomegaly Skin no rashes, warm and dry Psychiatric A+Ox3, euthymic affect Discharge Data Allergies Allergy/AdvReac Type Severity Reaction Status Date / Time Sulfa (Sulfonamide Allergy Severe ANAPHYLAXIS; Verified 08/22/19 02:13 Antibiotics) TAKES AMARYL W/O REACTION allopurinol Allergy Unknown Verified 08/22/19 02:13 Cephalosporins AdvReac Intermediate KEFLEX Verified 08/22/19 02:13 ALLERGY -NAUSEA Thyroid Allergy Intermediate "THYROID Uncoded 08/22/19 02:13 AGENTS" Consultations 08/22/19 04:18 ED Decision to Admit Stat 08/22/19 05:50 Consult Case Management - Discharge Planning Routine Hospital Course (1) Precordial chest pain: 84-year-old female with a history of COPD, pulmonary hypertension, atrial flutter, hyperlipidemia, coronary artery disease, diabetes presents with substernal chest pain and shortness of breath. Chest pain Most recent echo 03/13/2019LVH noted, EF 65 to 70%, severe pulmonary hypertension noted. Follows with [facility] cardiology, Dr. Rios. -troponins x3 negative, pt's pain likely GERD related; if pt had had ischemia in the 6 hours that she had pain her troponin would have been elevated. Hypertension/hyperlipidemia/atrial flutter Continue carvedilol, telmisartan, apixaban, simvastatin at home. COPD/pulmonary hypertension/pneumonia Continue inhalers and nebulizerstiotropium, Symbicort, levalbuterol. -nebs from home as needed. -on exam today some crackles on left side; recently treated with Augmentin for CAP. -have prescribed azithromycin pack to start in hospital, then to continue outpatient for a total of 5 days course. -will need outpatient follow up with pulm within 7 days. Diabetes Return to home regimen. GERD Continue Protonix at home. May take pepcid PRN GERD. (2) Community acquired pneumonia: Total Time Total Time Spent Total Time Spent (In Minutes): >30 Discharge Plan Discharge Items Patient Disposition: Home - Self-Care Reason For Visit: CHEST PAIN Discharge Diagnosis: Reflux, COPD Activity: Resume your previous activity Non-emergency contact: Primary Care Provider, Electronic Field Service Engineer and Credit Portfolio Manager Call non-emergency contact if: your symptoms worsen and your temperature is above 101 Follow-up/Referrals: Jeyson Peña MD [Primary Care Provider] - Diet: Regular Addtl Attending Provider Instructions: You were admitted to the hospital for burning chest pain. You were found not to have elevation in cardiac enzymes, and your pain went away. We do not believe that you had a heart attack while you were here. Your breathing difficulty is due to your history of COPD and pulmonary hypertension. It is important that when you leave the hospital you have follow ups with your Electronic Field Service Engineer and your Credit Portfolio Manager. You will get a call from someone at the hospital to help set those up. You should also follow up with your primary care doctor. Please continue your home inhalers as prescribed. The pain you had can be best explained by reflux after eating yesterday. If you have heartburn again try using an over the counter medication like Pepcid or Tums and see if that helps the heartburn. If you get crushing chest pain, increase in your trouble breathing, go to the ER. During your admission we talked about how you have had some URI symptoms and shortness of breath since . Given your presentation today and your mucous with blood in it, we will treat you for a pneumonia. Your antibiotic (azithromycin) was sent to [facility] in [place]. You will take one pill once a day for 4 days starting TOMORROW. We gave you one dose here. Pending Studies at Discharge: No Stand-Alone Forms: My [facility] [place], Smoking Cessation Medications and DC Order Prescriptions: New azithromycin 250 mg tablet 250 mg PO DAILY 4 Days Qty: 4 RF: 0 Continued carvedilol 3.125 mg tablet 3.125 mg PO BID Qty: 90 RF: 3 gabapentin 600 mg tablet 600 mg PO TID Qty: 90 RF: 3 pantoprazole 40 mg tablet,delayed release (DR/EC) 40 mg PO QAM Qty: 90 RF: 3 telmisartan 40 mg tablet 40 mg PO DAILY Qty: 90 RF: 3 Toujeo SoloStar U-300 Insulin 300 unit/mL (1.5 mL) insulin pen See Rx Instructions SUBCUT HS Qty: 0 RF: 3 Eliquis 2.5 mg tablet 2.5 mg PO BID Qty: 180 RF: 3 furosemide 40 mg tablet 40 mg PO DAILY PRN (Reason: Edema) Qty: 90 RF: 1 (DME) nebulizers misc See Rx Instructions .ROUTE .MEDSUPPLY Qty: 1 RF: 0 amoxicillin 500 mg capsule 2,000 mg PO ONCE PRN (Reason: dental work) RF: 0 (DME) OneTouch Ultra Blue Test Strip strip See Dose Instructions .ROUTE .MEDSUPPLY Qty: 10 RF: 0 (DME) TechLITE Lancets 25 gauge misc See Dose Instructions .ROUTE .MEDSUPPLY Qty: 100 RF: 0 (DME) pen needle, diabetic [BD Ultra-Fine Vielka Pen Needle] 32 gauge x 5/32" needle See Dose Instructions .ROUTE .MEDSUPPLY Qty: 10 RF: 0 Spiriva with HandiHaler 18 mcg capsule, w/inhalation device 1 cap INH DAILY Qty: 90 RF: 1 albuterol sulfate 90 mcg/actuation aerosol powdr breath activated 2 puffs INHALATION QID PRN (Reason: Wheezing) Qty: 1 RF: 3 levalbuterol HCl 1.25 mg/3 mL solution for nebulization 1.25 mg INH Q4H PRN (Reason: shortness of breath or wheezing) Qty: 90 RF: 3 allopurinol 100 mg Tablet 200 mg PO QAM RF: 0 simvastatin 40 mg Tablet 40 mg PO HS RF: 0 calcium carbonate [Calcium 600] 600 mg calcium (1,500 mg) Tablet 600 mg PO BID RF: 0 multivitamin Capsule 1 cap PO QAM RF: 0 glucosamine-chondroitin [Osteo Bi-Flex] 250-200 mg Tablet 2 tab PO BID RF: 0 Symbicort 160-4.5 mcg/actuation Hfa Aerosol Inhaler 2 puff INHALATION Q12H RF: 0 acetaminophen [Acetaminophen Extra Strength] 500 mg tablet 500 mg PO BID PRN (Reason: Pain) RF: 0 ferrous sulfate 325 mg (65 mg iron) tablet 650 mg PO DAILY RF: 0 Novolog Flexpen U-100 Insulin 100 unit/mL (3 mL) insulin pen See Rx Instructions SUBCUT .COMPLEX RF: 0 Discharge Orders: Discharge Order (Routine); Ordered 08/22/19 Ordered By: Diane Cox Admission Data Admit Date/Time: 08/22/19 05:08 Attending Provider: Wayne Oropeza Admit Provider: Italo Abernathy Primary Care Provider: Jeyson Peña Other Providers: Wayne Oropeza Other Interventions: Discharge Summary Assessment (RN) Last Done: 08/22/19 15:29 DC Date/Time DO NOT enter until pt leaves facility: 08/22/19 17:45 Supervising Physician Co-Signing Physician Notes I personally examined the patient and verified all zhao points of history and exam, discussed case, and agree with decision making with Dr Cox. Chest pain gone. Cardiac enzymes are negative. She did note that she has had ongoing difficulties with congestion for the last month - had augmentin and steroids - helped some. got nebs - didnt' really help much. cough with some blood tinged sputum vitals noted nad heent nc at mmm lungs faint rales base R no other r/r/w no accessory muscles. walks ~100ft with pulse ox no lower than 93% and no visible dyspnea. Chest painalmost certainly was GERD. Certainly was not cardiac given that it lasted for 6 hours absolutely unremitting and her cardiac enzymes are negative. Because of this no further testing needed at this time. Cough/congestion/mild hemoptysis/COPD exacerbationdoes not sound tight or wheezy so as to need further steroids (she appreciates this given that she notes that she generally has trouble with steroids with her sugars), however she noted she did improve some with the Augmentin but never really got betterwe will give a trial of Zithromax to cover for atypicals given that Augmentin would not have, and also given that she does not show infiltrate on x-ray. Close pulmonary follow-up. Certainly with her COPD history if the hemoptysis does not clear with treatment for infection it will need to be evaluated further. Resident Activity Tracking Resident Involvement: Resident Care Provided Care Provided: Adult Hospital Medicine
[2019-08-22] MEDS ORDERED: AZITHROMYCIN 250 MG TAB PO ONE (15:15)
--- NOTE | 2019-08-22 18:53 | Billing Data ---
Date of Service August 22, 2019 Coding Level of Care Code 02568 OBS Care - Discharge
[2019-08-22] MEDS ORDERED: SIMVASTATIN 40 MG TAB PO SCH (21:00)
--- NOTE | 2019-08-23 03:39 | Billing Data ---
Date of Service August 23, 2019 Coding Level of Care Code 27140 OBS Care - Level 2
== END 2019-08-22 17:45 | disposition home or self-care (01) ==
LOC: ED 01:22 → 1E 01:22 → 2N 07:01

== ENCOUNTER 2020-09-12 11:04 | Observation (INO) ==
--- NOTE | 2020-09-12 11:35 | Emergency Department Note ---
Impression & Plan Abdominal pain, Diverticulitis, Atrial flutter, Renal cyst ED Provider Note NAME: MARCK BLACKWELL AGE: 85 SEX: F : 1935 ARRIVES VIA: Walk-In INFORMANT: Patient ED PROVIDER(S): Herbert Bradshaw DO CHIEF COMPLAINT: Abdominal pain HPI: Patient is an 85-year-old female who presents to the ER for abdominal pain. Patient notes that this started Wednesday or Wednesday. Has been steadily getting worse. Admits to some nausea but no vomiting. She has diffuse bloating throughout her belly. She does have tenderness in the lower belly. She was treated for UTI on Cipro until this past Wednesday. Had a CT and blood work performed and was treated for diverticulitis with Augmentin. Has taken 3 days worth of Augmentin and symptoms have been getting worse. ROS: See above HPI for pertinent positives & negatives. A total of 10 systems reviewed and were otherwise negative. PAST MEDICAL HISTORY:See Below PAST SURGICAL HISTORY:See Below FAMILY HISTORY:See Below SOCIAL HISTORY:See Below HOME MEDICATIONS:See Below ALLERGIES:See Below VITALS:See Below PHYSICAL EXAMINATION: GENERAL: Sitting up in bed, alert, well appearing, well nourished, no distress, non-toxic EYE EXAM: normal conjunctiva. OROPHARYNX: no exudate, no erythema, lips, buccal mucosa, and tongue normal and mucous membranes are moist NECK: supple, no nuchal rigidity, no adenopathy, non-tender LUNGS: Clear to auscultation. Normal chest wall mechanics HEART: no murmurs, S1 normal and S2 normal ABDOMEN: abdomen soft, TTP in lower abd, normo-active bowel sounds, no masses, no rebound or guarding. UPPER EXTREMITIES: upper extremities are grossly normal. LOWER EXTREMITIES: No pitting edema. NEURO EXAM: Normal sensorium, cranial nerves II-XII grossly intact, normal speech, no gross weakness of arms, no gross weakness of legs. MEDICAL DECISION MAKING: Patient is an 85-year-old female who presents the ER for worsening abdominal pain. She was seen and evaluated several days ago after being treated for diverticulitis. She was also found to have a right kidney mass. She has not been able to eat or drink. She has been feeling more weak. IV was established blood work was obtained. Labs showed no significant leukocytosis or anemia. BMP with a slightly elevated chloride. BUN was elevated at 40 which is pretty consistent with previous. Creatinine at 1.44. LFTs bilirubin and lipase was unremarkable. Covid was negative. CT abdomen pelvis shows no significant change and questionable sigmoid mass. Patient was given IV fluids and IV Zosyn. She was updated bedside. She given GI cocktail, Zofran and small dose of morphine. She is updated bedside. Discussed with hospitalist admitted for further work-up. Triage Nursing notes reviewed. Limited review of prior medical records performed Vital Signs: reviewed and remarkable for HTN Differential diagnosis: Differential diagnoses includes but is not limited to gastritis, peptic ulcer disease, GERD, gallbladder disease, pancreatitis, small bowel obstruction, acute coronary syndrome, pericarditis, ischemic bowel, irritable bowel disease, irrita ble bowel syndrome, appendicitis, diverticulitis, malignancy, hernia, urinary tract infection, torsion, perforation, trauma, infectious. ER treatment provided: See below Diagnostics interpreted by me: ECG: A. fib rate of 94 Normal axis Poor baseline T wave inversion in the inferior leads PVC ST wave changes in the inferior leads QTC 505 Cardiac Monitoring: An order was placed for continuous cardiac monitoring. The monitor shows a rate of Aflutter with 80 rhythm. Laboratory studies: As stated above and show below. Imaging studies: CT abdomen pelvis as discussed above Consultation(s): Discussed with hospitalist for further evaluation Procedures: none Critical Care: None Past Med/Surg History Medical History (Updated 09/12/20 @ 16:23 by Herbert Bradshaw DO) Adverse reaction to anesthetic agent Hard to wake up Asthma STABLE CAD (coronary artery disease) NON-OBSTRUCTIVE Cardiorenal syndrome Chronic back pain RLE RADICULOPATHY Chronic kidney disease, stage III (moderate) Congestive heart failure DIASTOLIC COPD (chronic obstructive pulmonary disease) STABLE Depression Diabetes mellitus, type 2 GERD (gastroesophageal reflux disease) CONTROLLED Gout Headache REASON FOR PROCEDURE Heart failure Hiatal hernia History of blood transfusion S/P HIP SURGERY History of central retinal artery occlusion History of hypothyroidism EUTHYROID ON MORE RECENT TESTING Hyperlipidemia Hypertension Hyponatremia Nocturnal hypoxemia ON O2 2L HS Osteoarthritis Pulmonary embolism Pulmonary HTN SEVERE PULMONARY HTN (RVSP > 60MMHG) Seizure 15 YEARS AGO; NO ISSUES SINCE Tremor ESSENTIAL TREMOR (HEAD) Valvular disease MODERATE TO SEVERE TR. MODERATE AV SCLEROSIS Surgical History History of cardiac cath 2008= NO STENTS History of cataract surgery bilateral History of dacryocystorhinostomy bilateral History of dilation and curettage History of surgery CYSTOCELE REPAIR RECOTOCELE REPAIR History of temporal artery biopsy 02/08/14= MAC SEDATION WITHOUT ISSUES AT [facility] History of total hip arthroplasty (~07/16/09) LEFT Family History Father , Age 60 from [place] Myocardial infarction Diabetes Hypertension Grandfather Stroke Mother Cancer Hearing loss Allergies Aunt Hearing loss Other Asthma Coronary heart disease Heart disease No family history of adverse response to anesthesia No family history of bleeding disorder Denies family history of Ovarian cancer Breast cancer Colorectal cancer Social History Smoking Status: Never smoker Second Hand Exposure: No; Hx Alcohol Use: No Hx Substance Use: No Preferred Language: [place] Communication Ability: Effective Visual Impairment: Limited Hearing Ability: Normal Records Management Engineer Required: No Beliefs That Will Affect Care: None marital status: / Current Living Situation: Family current occupational status: retired How many Children do You have: 2 Feels Safe at Home: Yes Childhood Exposure to Second-Hand Smoke: No caffeine: Yes Dental Care, Regularly: Yes Physical Activity Frequency: Does not Exercise Seatbelt Use: always Sunscreen Use: Yes Assistive Devices: Cane and Glasses Allergies Allergies Allergy/AdvReac Type Severity Reaction Status Date / Time Sulfa (Sulfonamide Allergy Severe ANAPHYLAXIS; Verified 09/12/20 12:36 Antibiotics) TAKES AMARYL W/O REACTION nystatin Allergy Unknown Wheezing Verified 09/12/20 12:36 thyroid, pork Allergy Unknown "ALL Verified 09/12/20 12:36 THYROID AGENTS" allopurinol Allergy Unknown Verified 09/12/20 12:36 cephalexin [From Keflex] Allergy Headahce; Verified 09/12/20 12:36 Nausea; Rash Cephalosporins AdvReac Intermediate KEFLEX Verified 09/12/20 12:36 ALLERGY -NAUSEA Home Meds Home Medications Medication Instructions Recorded Confirmed glucosamine-chondroitin [Osteo 2 tab PO BID 05/13/18 09/12/20 Bi-Flex] acetaminophen 500 mg tablet 500 mg PO BID PRN tab 05/11/19 09/12/20 lancets 25 gauge #100 ea 05/23/19 09/10/20 ferrous sulfate 325 mg (65 mg 325 mg PO DAILY tab 06/24/20 09/12/20 iron) tablet gabapentin 600 mg tablet 600 mg PO BID tab 09/10/20 09/12/20 allopurinol 0 mg PO QAM 09/12/20 09/12/20 carvedilol 0 mg PO BID 09/12/20 09/12/20 furosemide [Lasix] 0 mg PO Q OTHER DAY 09/12/20 09/12/20 Previous Rx's Medication Instructions Recorded nebulizers #1 ea 07/18/19 levalbuterol HCl 1.25 mg/3 mL 1.25 mg INH Q4H PRN #90 ml 07/28/19 solution for nebulization Novolog Flexpen U-100 Insulin 100 See Rx Instructions SUBCUT 12/25/19 unit/mL (3 mL) subcutaneous .COMPLEX #60 ml NS insulin glargine U-300 conc 300 See Rx Instructions SUBCUT HS #9 ml 12/25/19 unit/mL (1.5 mL) subcutaneous pen simvastatin 40 mg tablet 40 mg PO HS #90 tab 01/02/20 telmisartan 40 mg tablet 40 mg PO DAILY #90 tab 06/11/20 albuterol sulfate 90 mcg/actuation 2 inh INHALATION QID PRN #1 ea 06/20/20 breath activated powder inhaler OneTouch Delica Lancets 33 gauge #400 ea NS 06/24/20 OneTouch Ultra Blue Test Strip #400 ea NS 06/24/20 budesonide-formoterol HFA 160 2 puff INHALATION BID #10.2 g 06/25/20 mcg-4.5 mcg/actuation aerosol inhaler tiotropium bromide 2.5 2 inh INHALATION QAM #4 g 06/25/20 mcg/actuation mist for inhalation apixaban 2.5 mg tablet 2.5 mg PO BID #180 tab 07/22/20 famotidine 20 mg tablet 20 mg PO DAILY #30 tab 08/19/20 BD Ultra-Fine Vielka Pen Needle 32 #400 ea NS 08/27/20 gauge x 5/32" calcium carbonate 600 mg calcium 600 mg PO DAILY #90 tab 09/02/20 (1,500 mg) tablet Saccharomyces boulardii [Florastor] 250 mg PO BID #20 cap 09/09/20 amoxicillin-pot clavulanate 1 tab PO BID #20 tab 09/09/20 [Augmentin] Results & Data (ED) Vital Signs Vital Signs - 24 hr 09/12/20 11:10 09/12/20 12:38 09/12/20 13:00 Temperature 36.1 C L Temperature Source Temporal Artery Scan Pulse Rate 77 77 Pulse Rate from SpO2 Sensor Pulse Rhythm Regular Pulse Strength Normal Respiratory Rate 22 21 Respiratory Effort / Characteristics Non-Labored Spontaneous Respiratory Depth Normal Respiratory Pattern Regular Blood Pressure 146/73 H 142/86 H Blood Pressure Mean 97 104 Blood Pressure Position Sitting Pulse Oximetry 100 99 99 Oxygen Delivery Method Room Air Room Air Sepsis Recent Fever Within 48 Hours No Sepsis New/Unexplained Change in Mental Status No Sepsis Action Taken by Nursing No Action Required 09/12/20 14:01 09/12/20 15:00 09/12/20 15:30 Temperature Temperature Source Pulse Rate 82 64 63 Pulse Rate from SpO2 Sensor 64 66 Pulse Rhythm Pulse Strength Respiratory Rate 24 20 19 Respiratory Effort / Characteristics Respiratory Depth Respiratory Pattern Blood Pressure 123/82 Blood Pressure Mean 95 Blood Pressure Position Pulse Oximetry 99 97 97 Oxygen Delivery Method Sepsis Recent Fever Within 48 Hours Sepsis New/Unexplained Change in Mental Status Sepsis Action Taken by Nursing 09/12/20 16:00 Temperature Temperature Source Pulse Rate 65 Pulse Rate from SpO2 Sensor Pulse Rhythm Pulse Strength Respiratory Rate 18 Respiratory Effort / Characteristics Respiratory Depth Respiratory Pattern Blood Pressure 135/77 Blood Pressure Mean 96 Blood Pressure Position Pulse Oximetry 96 Oxygen Delivery Method Sepsis Recent Fever Within 48 Hours Sepsis New/Unexplained Change in Mental Status Sepsis Action Taken by Nursing Laboratory Data Result diagrams: 09/12/20 11:56 09/12/20 11:56 Lab Results 09/12/20 09/12/20 09/12/20 Range/Units 11:56 11:56 12:03 WBC 12.16 H (4.8-10.8) K/uL RBC 3.81 L (4.2-5.4) M/uL Hgb 12.3 (12.0-16.0) g/dL POC Hgb 12.9 (12.0-16.0) g/dl Hct 36.9 L (37-47) % POC Hct 38 (37-47) % MCV 96.9 (80-100) fL MCH 32.3 (25-34) pg MCHC 33.3 (32-36) g/dL RDW Std Deviation 53.3 H (36.4-46.3) fL RDW Coeff of Terri 15.1 H (11.5-14.5) % Plt Count 218 (130-400) K/uL MPV 11.4 H (7.4-10.4) fL Immature Gran % (Auto) 0.3 % Neut % (Auto) 74.2 % Lymph % (Auto) 14.6 % Crosby % (Auto) 8.7 % Eos % (Auto) 2.0 % Baso % (Auto) 0.2 % Neut # (Auto) 9.02 H (1.4-6.5) K/uL Lymph # (Auto) 1.77 (1.2-3.4) K/uL Crosby # (Auto) 1.06 H (0.11-0.59) K/uL Eos # (Auto) 0.24 (0-0.5) K/uL Baso # (Auto) 0.03 (0-0.2) K/uL Immature Gran # (Auto) 0.04 H (0.00-0.02) K/uL POC Sodium 138 (135-144) mmol/L Sodium 138 (136-145) mmol/L POC Potassium 4.6 (3.3-5.0) mmol/L Potassium 4.5 (3.5-5.1) mmol/L POC Chloride 108 (101-112) mmol/L Chloride 108 H (98-107) mmol/L Carbon Dioxide 22 (21-32) mmol/L POC Total CO2 23 L (24-31) mmol/L Anion Gap 9.0 (3-11) POC Anion Gap 13.0 L (16-25) mmol/L POC BUN 37 H (7-18) mg/dl BUN 40 H (7-18) mg/dl Creatinine 1.44 H (0.6-1.2) mg/dl POC Creatinine 1.3 (0.6-1.3) mg/dl Est Cr Clr Drug Dosing 22.7 ml/min Est GFR ( Amer) 38.0 Est GFR (Non-Af Amer) 32.8 BUN/Creatinine Ratio 27.8 H (10-20) Glucose 115 H (70-99) mg/dl POC Glucose (other) 118 H (70-99) mg/dl Calcium 9.3 (8.5-10.1) mg/dl POC Ioniz Calcium Pramod 1.12 (1.12-1.32) mmol/l Total Bilirubin 0.7 (0.2-1) mg/dl AST 28 (15-37) U/L ALT 50 (12-78) U/L Alkaline Phosphatase 73 (45-117) U/L Total Protein 8.2 (6.4-8.2) gm/dl Albumin 4.0 (3.4-5.0) gm/dl Globulin 4.2 H (2.5-4.0) gm/dl Albumin/Globulin Ratio 0.9 (0.9-2) Lipase 317 (73-393) U/L COVID-19 Eval Order SARS-CoV-2, RNA, NAAT (NEGATIVE) 09/12/20 09/12/20 Range/Units 15:19 15:19 WBC (4.8-10.8) K/uL RBC (4.2-5.4) M/uL Hgb (12.0-16.0) g/dL POC Hgb (12.0-16.0) g/dl Hct (37-47) % POC Hct (37-47) % MCV (80-100) fL MCH (25-34) pg MCHC (32-36) g/dL RDW Std Deviation (36.4-46.3) fL RDW Coeff of Terri (11.5-14.5) % Plt Count (130-400) K/uL MPV (7.4-10.4) fL Immature Gran % (Auto) % Neut % (Auto) % Lymph % (Auto) % Crosby % (Auto) % Eos % (Auto) % Baso % (Auto) % Neut # (Auto) (1.4-6.5) K/uL Lymph # (Auto) (1.2-3.4) K/uL Crosby # (Auto) (0.11-0.59) K/uL Eos # (Auto) (0-0.5) K/uL Baso # (Auto) (0-0.2) K/uL Immature Gran # (Auto) (0.00-0.02) K/uL POC Sodium (135-144) mmol/L Sodium (136-145) mmol/L POC Potassium (3.3-5.0) mmol/L Potassium (3.5-5.1) mmol/L POC Chloride (101-112) mmol/L Chloride (98-107) mmol/L Carbon Dioxide (21-32) mmol/L POC Total CO2 (24-31) mmol/L Anion Gap (3-11) POC Anion Gap (16-25) mmol/L POC BUN (7-18) mg/dl BUN (7-18) mg/dl Creatinine (0.6-1.2) mg/dl POC Creatinine (0.6-1.3) mg/dl Est Cr Clr Drug Dosing ml/min Est GFR ( Amer) Est GFR (Non-Af Amer) BUN/Creatinine Ratio (10-20) Glucose (70-99) mg/dl POC Glucose (other) (70-99) mg/dl Calcium (8.5-10.1) mg/dl POC Ioniz Calcium Pramod (1.12-1.32) mmol/l Total Bilirubin (0.2-1) mg/dl AST (15-37) U/L ALT (12-78) U/L Alkaline Phosphatase (45-117) U/L Total Protein (6.4-8.2) gm/dl Albumin (3.4-5.0) gm/dl Globulin (2.5-4.0) gm/dl Albumin/Globulin Ratio (0.9-2) Lipase (73-393) U/L COVID-19 Eval Order Covid19 IDNow atMMNC SARS-CoV-2, RNA, NAAT NEGATIVE (NEGATIVE) Administered Medications Miscellaneous Information (Piperacill/Tazobac Consult Active) 1 ea N/A UD PRN PRN Reason: Consult Stop: 10/12/20 13:44 Last Admin: 09/12/20 14:10 Dose: 1 ea Documented by: [id number] Discontinued Medications Al Hydrox/Mg Hydrox/Simethicone (Gi Cocktail Ed Use) 1 dose PO ONE ONE Stop: 09/12/20 13:45 Last Admin: 09/12/20 14:10 Dose: 1 dose Documented by: [id number] Sodium Chloride (Nss) 500 mls @ 999 mls/hr IV .Q31M ONE Stop: 09/12/20 12:09 Last Infusion: 09/12/20 12:26 Dose: 0 mls/hr Documented by: [id number] Admin: 09/12/20 11:55 Dose: 999 mls/hr Documented by: [id number] Piperacillin Sod/Tazobactam Sod (Zosyn) 4.5 gm in 120 mls @ 240 mls/hr IV NOW ONE Stop: 09/12/20 14:14 Last Infusion: 09/12/20 14:40 Dose: 0 mls/hr Documented by: [id number] Admin: 09/12/20 14:10 Dose: 240 mls/hr Documented by: [id number] Ioversol (Ioversol 100ml) 94 ml IV ONCE ONE Stop: 09/12/20 12:50 Last Admin: 09/12/20 12:51 Dose: 94 ml Documented by: [id number] Morphine Sulfate (Morphine Sulfate 2 Mg/Ml Carp) 2 mg IV NOW STA Stop: 09/12/20 13:45 Last Admin: 09/12/20 14:10 Dose: 2 mg Documented by: [id number] Discharge Plan Visit Data Chief Complaint: GI Assessment Stated Complaint: DIVERTICULITIS ED Provider: Herbert Bradshaw Discharge Problem: Abdominal pain, Diverticulitis, Atrial flutter, Renal cyst Forms Stand Alone Forms: [facility] [employer] Prescriptions Prescriptions: No Action Novolog Flexpen U-100 Insulin 100 unit/mL (3 mL) insulin pen See Rx Instructions SUBCUT .COMPLEX Qty: 60 RF: 3 Toujeo SoloStar U-300 Insulin 300 unit/mL (1.5 mL) insulin pen See Rx Instructions SUBCUT HS Qty: 9 RF: 3 simvastatin 40 mg tablet 40 mg PO HS Qty: 90 RF: 3 telmisartan 40 mg tablet 40 mg PO DAILY Qty: 90 RF: 3 Eliquis 2.5 mg tablet 2.5 mg PO BID Qty: 180 RF: 3 famotidine [Acid Pneumatic Tube Operator (famotidine)] 20 mg tablet 20 mg PO DAILY Qty: 30 RF: 5 (DME) pen needle, diabetic [BD Ultra-Fine Vielka Pen Needle] 32 gauge x 5/32" needle See Dose Instructions .ROUTE .MEDSUPPLY Qty: 400 RF: 3 (DME) nebulizers misc See Rx Instructions .ROUTE .MEDSUPPLY Qty: 1 RF: 0 (DME) lancets [OneTouch Delica Lancets] 33 gauge misc See Rx Instructions .ROUTE .MEDSUPPLY Qty: 400 RF: 3 (DME) OneTouch Ultra Blue Test Strip Strip See Dose Instructions .ROUTE .MEDSUPPLY Qty: 400 RF: 3 calcium carbonate [Calcium 600] 600 mg calcium (1,500 mg) tablet 600 mg PO DAILY Qty: 90 RF: 0 albuterol sulfate 90 mcg/actuation aerosol powdr breath activated 2 inh INHALATION QID PRN (Reason: Wheezing) Qty: 1 RF: 5 budesonide-formoterol [Symbicort] 160-4.5 mcg/actuation HFA aerosol inhaler 2 puff inhalation BID Qty: 10.2 RF: 5 Spiriva Respimat 2.5 mcg/actuation mist 2 inh inhalation QAM Qty: 4 RF: 5 (DME) TechLITE Lancets 25 gauge misc See Dose Instructions .ROUTE .MEDSUPPLY Qty: 100 RF: 0 levalbuterol HCl 1.25 mg/3 mL solution for nebulization 1.25 mg INH Q4H PRN (Reason: shortness of breath or wheezing) Qty: 90 RF: 3 gabapentin 600 mg tablet 600 mg PO BID RF: 0 glucosamine-chondroitin [Osteo Bi-Flex] 250-200 mg Tablet 2 tab PO BID RF: 0 acetaminophen [Acetaminophen Extra Strength] 500 mg tablet 500 mg PO BID PRN (Reason: Pain) RF: 0 ferrous sulfate 325 mg (65 mg iron) tablet 325 mg PO DAILY RF: 0 amoxicillin-pot clavulanate [Augmentin] 500-125 mg tablet 1 tab PO BID Qty: 20 RF: 0 Saccharomyces boulardii [Florastor] 250 mg capsule 250 mg PO BID Qty: 20 RF: 0 furosemide [Lasix] 40 mg tablet 0 mg PO Q OTHER DAY RF: 0 allopurinol 100 mg tablet 0 mg PO QAM RF: 0 carvedilol 3.125 mg tablet 0 mg PO BID RF: 0 Discharge Problem: Abdominal pain Qualifiers: Abdominal location: unspecified location Qualified Code(s): R10.9 - Unspecified abdominal pain Atrial flutter Qualifiers: Atrial flutter type: unspecified Qualified Code(s): I48.92 - Unspecified atrial flutter
[2020-09-12] MEDS ORDERED: SODIUM CHLORIDE 0.9% 500 ML IV ONE (11:39)
[2020-09-12 12:15] LABS: iSTAT Creatinine 1.3 mg/dl (0.6-1.3); iSTAT Hemoglobin 12.9 g/dl (12.0-16.0); iSTAT Ionized Calcium 1.12 mmol/l (1.12-1.32); iSTAT Potassium 4.6 mmol/L (3.3-5.0)
[2020-09-12 12:18] LABS: Basophils # (auto) 0.03 K/uL (0-0.2); Basophils % (auto) 0.2 %; Eosinophils # (auto) 0.24 K/uL (0-0.5); Hematocrit (blood only) 36.9 % (37-47); Hemoglobin 12.3 g/dL (12.0-16.0); Immature Granulocytes # (auto) 0.04 K/uL (0.00-0.02); Immature Granulocytes % (auto) 0.3 %; Lymphocytes # (auto) 1.77 K/uL (1.2-3.4); Lymphocytes % (auto) 14.6 %; Mean Corpuscular Hemoglobin 32.3 pg (25-34); Mean Corpuscular Hgb Conc 33.3 g/dL (32-36); Mean Corpuscular Volume 96.9 fL (80-100); Mean Platelet Volume 11.4 fL (7.4-10.4); Monocytes # (auto) 1.06 K/uL (0.11-0.59); Monocytes % (auto) 8.7 %; Neutrophils # (auto) 9.02 K/uL (1.4-6.5); Neutrophils % (auto) 74.2 %; Platelet Count 218 K/uL (130-400); RDW Coefficient of Variation 15.1 % (11.5-14.5); RDW Standard Deviation 53.3 fL (36.4-46.3); Red Blood Count 3.81 M/uL (4.2-5.4); White Blood Count 12.16 K/uL (4.8-10.8)
[2020-09-12 12:43] LABS: Albumin Globulin Ratio 0.9 (0.9-2); BUN Creatinine Ratio 27.8 (10-20); Bilirubin,Total 0.7 mg/dl (0.2-1); Calcium 9.3 mg/dl (8.5-10.1); Creatinine Clr Calc Pharmacy 22.7 ml/min; Est GFR (Non-African American) 32.8; Globulin 4.2 gm/dl (2.5-4.0); Potassium 4.5 mmol/L (3.5-5.1); Total Protein 8.2 gm/dl (6.4-8.2)
[2020-09-12] MEDS ORDERED: IOVERSOL 100ml IV ONE (12:49)
--- NOTE | 2020-09-12 13:05 | CT Scan Report ---
CT abd pelvis IV con only CLINICAL HISTORY: abd pain COMPARISON STUDY: 09/09/2020 TECHNIQUE: The patient was scanned in a dynamic helical fashion during intravenous administration of 94 cc of Optiray 320 A dose lowering technique was utilized adhering to the principles of ALARA. CT DOSE: 458.91 mGycm FINDINGS: Lower chest: There is respiratory motion artifact. There is minor dependent atelectasis. Liver: The contrast-enhanced liver is normal in size, contour, and attenuation. There is no intrahepa tic biliary ductal dilatation. The hepatic veins and portal veins are patent. Gallbladder: Unremarkable. Spleen: Normal in size and attenuation. Pancreas: Unremarkable. Adrenal glands: There is a 2 cm left adrenal adenoma. Kidneys: There is a 12 mm right renal lesion, likely representing a hyperdense cyst. This has a Houns field attenuation value of 52. On the prior noncontrast study this had Hounsfield attenuation value o f 49. Bowel: There are multiple fluid-filled bowel loops with scattered air-fluid levels. There are no mitchell sition zones indicate bowel obstruction. There is persistent extensive colonic diverticulosis. There is a 24 mm hypodense sigmoid lesion. There is minimal perisigmoid stranding. Diagnostic consideration s include a perisigmoid inflammatory mass versus mucosal/submucosal lesion.. As was previously stated , follow-up colonoscopy is recommended. Note also is made of duodenal wall thickening/edema. Peritoneum: There is no intraperitoneal free air or abdominal ascites. A small fat-containing umbilic al hernia Vasculature: The abdominal aorta is normal in course and caliber. Adenopathy: None. Pelvic viscera: Evaluate the pelvis is somewhat limited due to beam hardening artifact from the patie nt's left hip arthroplasty. No pathologic pelvic masses are identified. Skeletal structures: There are multilevel degenerative changes within the spine lumbar spine with mul tilevel spinal stenosis. No destructive skeletal lesions are visualized is an old superior endplate L 5 compression deformity IMPRESSION: 1. No evidence of bowel obstruction. No evidence of free air 2. Duodenal wall thickening/edema 3. Extensive sigmoid diverticulosis. Mild perisigmoid stranding, and a stable 24 mm hypodense sigmoid lesion. This could represent a perisigmoid inflammatory mass versus mucosal/submucosal lesion. As pr eviously stated follow-up colonoscopy is recommended 4. 2 cm left adrenal adenoma 5. 12 mm right renal lesion likely representing a hyperdense cyst ACT 112: Negative or not required by law. Electronically signed by: Slade Velázquez M.D. 09/12/2020 1:04 PM
[2020-09-12] MEDS ORDERED: MoRPHine SULFATE 2 MG/ML CARP IV STA ×2 (13:44→18:41)
[2020-09-12] MEDS ORDERED: GI COCKTAIL ED USE PO ONE (13:44)
[2020-09-12] MEDS ORDERED: PIPERACILL/TAZOBAC CONSULT ACTIVE PRN (13:45)
[2020-09-12] MEDS ORDERED: PIPERACILLIN/TAZOBACTAM 4.5 GM/120 ML BAG IV ONE (13:45)
--- NOTE | 2020-09-12 14:14 | History & Physical Report ---
Date of Service September 12, 2020 Assessment & Plan (1) Diverticulitis of sigmoid colon: Ms. Stokes is an 85-year-old female with a history of Pulmonary Hypertension (Group 2/3) previously on sildenafil, Chronic Diastolic CHF, Mild Non- obstructive CAD, Hypertension, COPD, Chronic Kidney Disease, Type 2 Diabetes Mellitus, Atrial Flutter, Tricuspid Regurgitation, Aortic Valve Sclerosis, COPD/Asthma, GERD, Hiatal Hernia, Laryngopharyngeal Reflux, Depression, Lumbar Spinal Stenosis, and Diverticulosis Coli who is currently being treated for Acute Sigmoid Diverticulitis as an outpatient with Augmentin starting 3 days ago, but she is failing with this treatment. Unfortunately she is experiencing worsening abdominal pain, nausea without vomiting, decreased appetite (although has eaten breakfast every morning except for today), and diffuse abdominal bloating. She denies any fevers, although she has had some chills. Patient has had abdominal pain for the past week, and prior to that she took a course of Cipro for a suspected UTI. She initially presented to the ER on 09/08/2020 complaining of abdominal pain and constipation. Supportive treatment and advised return if symptoms persisted. She did begin moving her bowels 09/08/20 into 09/09/20, but her abdominal pain persisted. Review of her CT Scan on 09/09/20 showed finding consistent with an Acute Sigmoid Diverticulitis. She was started on Augmentin 875 mg b.i.d.. Her WBC# is elevated with a leftward shift, her oral intake has been poor, and she appears dehydrated. CT Scan 09/12/2020 shows: 1. Extensive sigmoid diverticulosis. 2. Mild perisigmoid stranding, and a stable 24 mm hypodense sigmoid lesion. 3. This could represent a perisigmoid inflammatory mass versus mucosal/submucosal lesion. 4. Follow-up colonoscopy is recommended. Recommend the following: -- Admit to Med-Surg. -- IV Zosyn with Pharmacy Consult. -- Consult General Surgery. -- NPO excepts sips oral medications. -- Analgesics as needed. -- IV NSS to rehydrate. (2) Abnormal CT scan, sigmoid colon: CT Scan 09/12/2020 shows: 1. Extensive sigmoid diverticulosis. 2. Mild perisigmoid stranding, and a stable 24 mm hypodense sigmoid lesion. 3. This could represent a perisigmoid inflammatory mass versus mucosal/submucosal lesion. 4. Follow-up colonoscopy is recommended. (3) Dehydration: -- IV NSS to rehydrate. -- Monitor I&O's. -- Monitor daily BMP. (4) CAD (coronary artery disease): -- Mild non-obstructive CAD. -- No symptoms. -- Continue Coreg 3.125 mg b.i.d.. -- Continue Telmisartan 40 mg daily. -- Continue Apixiban 2.5 mg b.i.d.. -- Continue Simvastatin 40 mg daily. (5) Pulmonary HTN: -- Estimated RVSP on Echocardiogram 03/05/2020 is 40 to 50 mmHg. -- Normal RV systolic function. -- Continue treating underlying COPD/Asthma. -- Supplemental O2 qhs. (6) COPD (chronic obstructive pulmonary disease): -- Continue usual inhalers. -- Duoneb Nebulizers as needed. -- Supplemental O2 qhs. (7) Hypertension: -- Continue Coreg 3.125 mg b.i.d.. -- Continue Telmisartan 40 mg daily. (8) Hyperlipidemia: -- Continue Simvastatin 40 mg daily. (9) Atrial flutter: -- Atrial flutter is rate controlled and asymptomatic. -- Continue Coreg 3.125 mg b.i.d.. -- Continue Apixiban 2.5 mg b.i.d.. (10) Diabetes mellitus, type 2: -- POC BSG is 118 mg/dl. -- BSG checks qAC and HS. -- Glycemic Pharmacy Consult. (11) Chronic kidney disease, stage IV (severe): --Baseline CrCl 15-30. --Baseline Cr 1.5 to 1.7. --Trend BMP. History of Present Illness Chief Complaint: -- Acute Diverticulitis refractory to outpatient treatment. Primary Care Provider: Jeyson Peña MD Ms. 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 Patient has had abdominal pain for the past week, and prior to that she took a course of Cipro for a suspected UTI. She initially presented to the ER on 09/08/2020 complaining of abdominal pain and constipation. Supportive treatment and advised return if symptoms persisted. She did begin moving her bowels 09/08/20 into 09/09/20, but her abdominal pain persisted. Review of her CT Scan on 09/09/20 showed finding consistent with an Acute Sigmoid Diverticulitis. She was started on Augmentin 875 mg b.i.d. which she has taken for 3 days now -- but unfortunately she is experiencing worsening abdominal pain, nausea without vomiting, decreased appetite (although has eaten breakfast every morning except for today), and diffuse abdominal bloating. She denies any fevers, although she has had some chills. She denies any vomiting, melena, hematochezia, or any hematemesis. No headache or stiff neck. No arthralgias or myalgias. She denies any cardiopulmonary symptoms. She is in rate controlled and asymptomatic Atrial Flutter. Patient offers no other complaints. She is compliant with her medications. Allergies Allergy/AdvReac Type Severity Reaction Status Date / Time Sulfa (Sulfonamide Allergy Severe ANAPHYLAXIS; Verified 09/12/20 12:36 Antibiotics) TAKES AMARYL W/O REACTION nystatin Allergy Unknown Wheezing Verified 09/12/20 12:36 thyroid, pork Allergy Unknown "ALL Verified 09/12/20 12:36 THYROID AGENTS" allopurinol Allergy Unknown Verified 09/12/20 12:36 cephalexin [From Keflex] Allergy Headahce; Verified 09/12/20 12:36 Nausea; Rash Cephalosporins AdvReac Intermediate KEFLEX Verified 09/12/20 12:36 ALLERGY -NAUSEA Home Medications Medication Instructions Recorded Confirmed Type glucosamine-chondroitin [Osteo 2 tab PO BID 05/13/18 09/12/20 History Bi-Flex] acetaminophen 500 mg tablet 500 mg PO BID PRN tab 05/11/19 09/12/20 History lancets 25 gauge #100 ea 05/23/19 09/10/20 History nebulizers #1 ea 07/18/19 09/10/20 Rx levalbuterol HCl 1.25 mg/3 mL 1.25 mg INH Q4H PRN #90 ml 07/28/19 09/12/20 Rx solution for nebulization Novolog Flexpen U-100 Insulin 100 See Rx Instructions SUBCUT 12/25/19 09/12/20 Rx unit/mL (3 mL) subcutaneous .COMPLEX #60 ml NS insulin glargine U-300 conc 300 See Rx Instructions SUBCUT HS #9 ml 12/25/19 09/12/20 Rx unit/mL (1.5 mL) subcutaneous pen simvastatin 40 mg tablet 40 mg PO HS #90 tab 01/02/20 09/12/20 Rx telmisartan 40 mg tablet 40 mg PO DAILY #90 tab 06/11/20 09/12/20 Rx albuterol sulfate 90 mcg/actuation 2 inh INHALATION QID PRN #1 ea 06/20/20 09/12/20 Rx breath activated powder inhaler OneTouch Delica Lancets 33 gauge #400 ea NS 06/24/20 09/10/20 Rx InfinitTouch Ultra Blue Test Strip #400 ea NS 06/24/20 09/10/20 Rx ferrous sulfate 325 mg (65 mg 325 mg PO DAILY tab 06/24/20 09/12/20 History iron) tablet budesonide-formoterol HFA 160 2 puff INHALATION BID #10.2 g 06/25/20 09/12/20 Rx mcg-4.5 mcg/actuation aerosol inhaler tiotropium bromide 2.5 2 inh INHALATION QAM #4 g 06/25/20 09/12/20 Rx mcg/actuation mist for inhalation apixaban 2.5 mg tablet 2.5 mg PO BID #180 tab 07/22/20 09/12/20 Rx famotidine 20 mg tablet 20 mg PO DAILY #30 tab 08/19/20 09/12/20 Rx BD Ultra-Fine Vielka Pen Needle 32 #400 ea NS 08/27/20 09/10/20 Rx gauge x 5/32" calcium carbonate 600 mg calcium 600 mg PO DAILY #90 tab 09/02/20 09/12/20 Rx (1,500 mg) tablet Saccharomyces boulardii [Florastor] 250 mg PO BID #20 cap 09/09/20 09/12/20 Rx amoxicillin-pot clavulanate 1 tab PO BID #20 tab 09/09/20 09/12/20 Rx [Augmentin] gabapentin 600 mg tablet 600 mg PO BID tab 09/10/20 09/12/20 History allopurinol 0 mg PO QAM 09/12/20 09/12/20 History carvedilol 0 mg PO BID 09/12/20 09/12/20 History furosemide [Lasix] 0 mg PO Q OTHER DAY 09/12/20 09/12/20 History Past Med/Surg History Medical History (Updated 09/13/20 @ 09:58 by Alejandro Delgado) Adverse reaction to anesthetic agent Hard to wake up Asthma STABLE CAD (coronary artery disease) NON-OBSTRUCTIVE Cardiorenal syndrome Chronic back pain RLE RADICULOPATHY Chronic kidney disease, stage III (moderate) Congestive heart failure DIASTOLIC COPD (chronic obstructive pulmonary disease) STABLE Depression Diabetes mellitus, type 2 GERD (gastroesophageal reflux disease) CONTROLLED Gout Headache REASON FOR PROCEDURE Heart failure Hiatal hernia History of blood transfusion S/P HIP SURGERY History of central retinal artery occlusion History of hypothyroidism EUTHYROID ON MORE RECENT TESTING Hyperlipidemia Hypertension Hyponatremia Nocturnal hypoxemia ON O2 2L HS Osteoarthritis Pulmonary embolism Pulmonary HTN SEVERE PULMONARY HTN (RVSP > 60MMHG) Seizure 15 YEARS AGO; NO ISSUES SINCE Tremor ESSENTIAL TREMOR (HEAD) Valvular disease MODERATE TO SEVERE TR. MODERATE AV SCLEROSIS Surgical History History of cardiac cath 2008= NO STENTS History of cataract surgery bilateral History of dacryocystorhinostomy bilateral History of dilation and curettage History of surgery CYSTOCELE REPAIR RECOTOCELE REPAIR History of temporal artery biopsy 02/08/14= MAC SEDATION WITHOUT ISSUES AT [facility] History of total hip arthroplasty (~07/16/09) LEFT Family History Father , Age 60 from [place] Myocardial infarction Diabetes Hypertension Grandfather Stroke Mother Cancer Hearing loss Allergies Aunt Hearing loss Other Asthma Coronary heart disease Heart disease No family history of adverse response to anesthesia No family history of bleeding disorder Denies family history of Ovarian cancer Breast cancer Colorectal cancer Social History Smoking Status: Never smoker Second Hand Exposure: No; Do You Dip or Chew Tobacco: No; Hx Alcohol Use: No Hx Substance Use: No Preferred Language: Turkish Communication Ability: Effective Visual Impairment: Limited Hearing Ability: Normal Net Application Architect Required: No Beliefs That Will Affect Care: None marital status: / Current Living Situation: Family Current Living Situation Comment: pt is sister's caregiver current occupational status: retired How many Children do You have: 2 Other Information That Helps Us Care for You: No Feels Safe at Home: Yes Safety Concerns: Feels Safe At This Time Childhood Exposure to Second-Hand Smoke: No caffeine: Yes Dental Care, Regularly: Yes Physical Activity Frequency: Does not Exercise Seatbelt Use: always Sunscreen Use: Yes Assistive Devices: Glasses and Walker Review of Systems Review of Systems: All systems reviewed & are unremarkable except as noted in Subjective Physical Exam Physical Exam: GENERAL: Patient in no acute distress. HEENT: Head is atraumatic, normocephalic. EOM's intact. Sclerae are anicteric. Facies symmetric. No perioral cyanosis. NECK: No JVD. JVP is at the level of the clavicle sitting upright. Carotid upstrokes are + 2 bilaterally. No bruits are noted. CHEST/LUNGS: Mildly diminished breath sounds throughout, otherwise clear. No wheezes or rales. CVS: S1 and S2 are slightly irregular at a rate of approximately 80 bpm. Grade 1/6 basal systolic murmur heard best at the right 2nd intercostal space. No diastolic murmurs appreciated. No gallops or rubs. PMI is nondisplaced. No lifts, heaves, or thrills. No abdominal aortic or renal bruits. ABDOMINAL EXAM: Abdomen appears distended. Bowel sounds are present. There is tenderness to deep palpation in the left lower quadrant and left mid abdomen. EXTREMITIES: No clubbing or cyanosis. Trace pretibial edema bilaterally. Intact radial pulses bilaterally. NEUROLOGIC EXAM: Patient is awake, alert, and oriented. Pleasant and cooperative. Answers questions appropriately. Speech is clear. Normal movement in all 4 extremities. Gait pattern was not assessed. Results & Data Results & Data ([facility]) Vital Signs (Past 12 Hours) Vital Signs Temp Pulse Resp BP Pulse Ox 09/12/20 13:00 77 21 142/86 H 99 09/12/20 12:38 99 09/12/20 11:10 36.1 C L 77 22 146/73 H 100 Laboratory Results Laboratory Results - last 24 hr 09/12/20 09/12/20 09/12/20 11:56 11:56 12:03 WBC 12.16 H RBC 3.81 L Hgb 12.3 POC Hgb 12.9 Hct 36.9 L POC Hct 38 MCV 96.9 MCH 32.3 MCHC 33.3 RDW Std Deviation 53.3 H RDW Coeff of Terri 15.1 H Plt Count 218 MPV 11.4 H Immature Gran % (Auto) 0.3 Neut % (Auto) 74.2 Lymph % (Auto) 14.6 [place] % (Auto) 8.7 Eos % (Auto) 2.0 Baso % (Auto) 0.2 Neut # (Auto) 9.02 H Lymph # (Auto) 1.77 [place] # (Auto) 1.06 H Eos # (Auto) 0.24 Baso # (Auto) 0.03 Immature Gran # (Auto) 0.04 H POC Sodium 138 Sodium 138 POC Potassium 4.6 Potassium 4.5 POC Chloride 108 Chloride 108 H Carbon Dioxide 22 POC Total CO2 23 L Anion Gap 9.0 POC Anion Gap 13.0 L POC BUN 37 H BUN 40 H Creatinine 1.44 H POC Creatinine 1.3 Est Cr Clr Drug Dosing 22.7 Est GFR ( Amer) 38.0 Est GFR (Non-Af Amer) 32.8 BUN/Creatinine Ratio 27.8 H Glucose 115 H POC Glucose (other) 118 H Calcium 9.3 POC Ioniz Calcium Pramod 1.12 Total Bilirubin 0.7 AST 28 ALT 50 Alkaline Phosphatase 73 Total Protein 8.2 Albumin 4.0 Globulin 4.2 H Albumin/Globulin Ratio 0.9 [address]ase [address] SCAN ABDOMEN and PELVIS 09/12/2020: 1. No evidence of bowel obstruction. No evidence of free air. 2. Duodenal wall thickening/edema. 3. Extensive sigmoid diverticulosis. Mild perisigmoid stranding, and a stable 24 mm hypodense sigmoid lesion. This could represent a perisigmoid inflammatory mass versus mucosal/submucosal lesion. 4. As previously stated follow-up colonoscopy is recommended. 5. 2 cm left adrenal adenoma. 6. 12 mm right renal lesion likely representing a hyperdense cyst. Medications Administered Miscellaneous Information (Piperacill/Tazobac Consult Active) 1 ea N/A UD PRN PRN Reason: Consult Stop: 10/12/20 13:44 Last Admin: 09/12/20 14:10 Dose: 1 ea Documented by: [id number] Discontinued Medications Al Hydrox/Mg Hydrox/Simethicone (Gi Cocktail Ed Use) 1 dose PO ONE ONE Stop: 09/12/20 13:45 Last Admin: 09/12/20 14:10 Dose: 1 dose Documented by: [id number] Sodium Chloride (Nss) 500 mls @ 999 mls/hr IV .Q31M ONE Stop: 09/12/20 12:09 Last Infusion: 09/12/20 12:26 Dose: 0 mls/hr Documented by: [id number] Admin: 09/12/20 11:55 Dose: 999 mls/hr Documented by: [id number] Piperacillin Sod/Tazobactam Sod (Zosyn) 4.5 gm in 120 mls @ 240 mls/hr IV NOW ONE Stop: 09/12/20 14:14 Last Infusion: 09/12/20 14:40 Dose: 0 mls/hr Documented by: [id number] Admin: 09/12/20 14:10 Dose: 240 mls/hr Documented by: [id number] Ioversol (Ioversol 100ml) 94 ml IV ONCE ONE Stop: 09/12/20 12:50 Last Admin: 09/12/20 12:51 Dose: 94 ml Documented by: [id number] Morphine Sulfate (Morphine Sulfate 2 Mg/Ml Carp) 2 mg IV NOW STA Stop: 09/12/20 13:45 Last Admin: 09/12/20 14:10 Dose: 2 mg Documented by: [id number] Code Status & VTE Plan Code Status Full Code VTE Prophylaxis Plan VTE Prophylaxis will be ordered: Yes Supervising Physician Co-Signing Physician Notes Attending Attestation & Admission Note: Pt seen & examined, chart reviewed, admission care plan d/w MAUREEN Bob. I agree w/ the zhao components of his admission documentation. 85yo female with T2DM, a.flutter, CKD stage 4, prior PE, CAD, COPD, pulm HTN - presents with ongoing abdominal pain, nausea, and inability to take PO in the setting of acute sigmoid diverticulitis. Recently dx with such as outpatient on 09/08 and despite PO augmentin has continued with the above leading to her ER presentation. During my assessment she was c/o severe abd pain and bloating and feeling thirsty. PMH, PSH, allergies, meds, sochx, famhx - reviewed VSS, no fever gen - uncomfortable appearing, c/o pain; a/o x 3 mouth - MM very dry neck - no JVD heart - irregular, s1 s2 lungs - scant, fine, dry rales bases only; no wheeze abd - mildly distended; BS+; tender LLQ; no HSM; no peritoneal signs ext - no edema labs reviewed CT abd/pelvis from today reviewed EKG - a.fib COVID neg A/P: 1. acute sigmoid diverticulitis - failed outpatient management 2. ?sigmoid lesion - cancer??; patient reports h/o large polyp removed by Dr Warren years ago; or is this early phlegmon? 3. duodenal inflammation noted incidentally on CT 4. other chronic medical issues - DM, pulm HTN, CKD stage 4, a.flutter, PE - stable agree w/ IV zosyn agree w/ IV fluids NPO/bowel rest pain meds IV anti-emetics serial labs IV PPI for #3 (or IV H2 ree) continue home meds for chronic issues including eliquis gen surg consult will need outpatient colonoscopy after acute diverticulitis has resolved to r/o malignancy Alejandro Delgado MD PG Care Time/CCT Total # of Minutes Spent Total Time Spent with Patient: Total time spent is greater than 50% in coordination of care (as documented) at patient's floor/unit and/or counseling patient:50 Coding Level of Care Code 61547 Initial Inpt Care Lvl 3 Diagnoses Diverticulitis of sigmoid colon K57.[address] scan, sigmoid colon R93.3 Dehydration E86.0 CAD (coronary artery disease) I25.10 Pulmonary HTN I27.20 COPD (chronic obstructive pulmonary disease) J44.9 Hypertension I10 Hyperlipidemia E78.5 Atrial flutter I48.92 Diabetes mellitus, type 2 E11.9 Chronic kidney disease, stage IV (severe) N18.4 Time Spent (min) 70
--- NOTE | 2020-09-12 17:01 | Electrocardiogram Report ---
Test Reason : Blood Pressure : / mmHG Vent. Rate : 094 BPM Atrial Rate : 394 BPM P-R Int : 000 ms QRS Dur : 068 ms QT Int : 404 ms P-R-T Axes : 000 107 226 degrees QTc Int : 505 ms Atrial fibrillation with PVC versus aberrancy Rightward axis Abnormal ECG When compared with ECG of 22-AUG-2019 04:21, T wave inversion now evident in Lateral leads QT has lengthened Confirmed by Michael Perez ([id number] on 09/12/2020 5:00:52 PM Referred By: REFERRED SELF Confirmed By:Gary Perez
[2020-09-12] MEDS ORDERED: MoRPHine SULFATE 2 MG/ML CARP ONE (18:33)
[2020-09-12] MEDS ORDERED: ONDANSETRON INJ 2 MG/ML 2 ML VIAL IV PRN (19:25)
[2020-09-12] MEDS ORDERED: MoRPHine SULFATE 4 MG/ML 1 ML CARP\\VIAL IV PRN (19:25)
[2020-09-12] MEDS ORDERED: SODIUM CHLORIDE 0.9% 1000ML 1,000 ML IV SCH (19:25)
[2020-09-12] MEDS ORDERED: ZOLPIDEM TARTRATE 5 MG TAB PO PRN (19:25)
[2020-09-12] MEDS ORDERED: ALBUT/IPRATROP 3MG/0.5MG NEB 3 ML VIAL NEB PRN (19:25)
[2020-09-12] MEDS ORDERED: ALUMINUM/MAGNESIUM SUSP 30 ML UDC PO PRN (19:25)
[2020-09-12] MEDS ORDERED: ALBUTEROL HFA 8 GM INHALER INH PRN (19:30)
[2020-09-12] MEDS ORDERED: PHARMACY GLYCEMIC MGMT CONSULT PRN (19:33)
[2020-09-12] MEDS ORDERED: GLUCAGON FOR INJ 1 MG VIAL IM PRN (19:45)
[2020-09-12] MEDS ORDERED: DEXTROSE 50% 50 ML SYRINGE IV PRN (19:45)
[2020-09-12] MEDS ORDERED: GLUCOSE 40% GEL 15 GM TUBE PO PRN (19:45)
[2020-09-12] MEDS ORDERED: CARBOHYDRATES FOR HYPOGLYCEMIA PO PRN (19:45)
[2020-09-12] MEDS ORDERED: GLUCOSE 10 TABS/TUBE PO PRN (19:45)
[2020-09-12] MEDS: INSULIN GLARGINE SOLOSTAR 100 UNITS/ML 3 ML PEN SC SCH (20:42)
[2020-09-12] MEDS: PIPERACILLIN/TAZOBACTAM 3.375 GM in DEXTROSE 5% 100 ML IV SCH (20:42)
[2020-09-12] MEDS: INSULIN ASPART 100 UNITS/ML 3 ML PEN SC SCH ×2 (20:43→23:57)
[2020-09-12] MEDS ORDERED: NON-FORMULARY MEDICATION (Glucosamine-Chondroitin [Osteo Bi-Flex] 250-200 mg Tablet) PO SCH (21:00)
[2020-09-12] MEDS ORDERED: PROCHLORPERAZINE 5 MG in SYRINGE 4 ML IV ONE (21:30)
[2020-09-12] MEDS: carvediloL 3.125 MG TAB PO SCH (21:37)
[2020-09-12] MEDS: APIXABAN 2.5 MG TAB PO SCH (21:37)
[2020-09-12] MEDS: GABAPENTIN 600 MG TAB PO SCH (21:41)
[2020-09-12] MEDS: SACCHAROMYCES BOULARDII 250 MG CAP PO SCH (21:41)
[2020-09-12] MEDS: SIMVASTATIN 40 MG TAB PO SCH (21:41)
[2020-09-13] MEDS: ACETAMINOPHEN 1,000 MG/100 ML VIAL IV PRN ×2 (00:01→08:30)
[2020-09-13] MEDS: PIPERACILLIN/TAZOBACTAM 3.375 GM in DEXTROSE 5% 100 ML IV SCH ×2 (04:57→18:23)
[2020-09-13] MEDS: INSULIN ASPART 100 UNITS/ML 3 ML PEN SC SCH ×4 (06:03→23:58)
[2020-09-13 07:17] LABS: Basophils # (auto) 0.01 K/uL (0-0.2); Basophils % (auto) 0.1 %; Hematocrit (blood only) 32.6 % (37-47); Hemoglobin 10.8 g/dL (12.0-16.0); Immature Granulocytes # (auto) 0.03 K/uL (0.00-0.02); Immature Granulocytes % (auto) 0.3 %; Lymphocytes # (auto) 0.93 K/uL (1.2-3.4); Lymphocytes % (auto) 8.7 %; Mean Corpuscular Hgb Conc 33.1 g/dL (32-36); Mean Corpuscular Volume 96.4 fL (80-100); Mean Platelet Volume 11.9 fL (7.4-10.4); Monocytes # (auto) 0.51 K/uL (0.11-0.59); Monocytes % (auto) 4.8 %; Neutrophils # (auto) 9.17 K/uL (1.4-6.5); Neutrophils % (auto) 86.1 %; Platelet Count 207 K/uL (130-400); RDW Coefficient of Variation 15.3 % (11.5-14.5); RDW Standard Deviation 53.4 fL (36.4-46.3); Red Blood Count 3.38 M/uL (4.2-5.4); White Blood Count 10.65 K/uL (4.8-10.8)
[2020-09-13 08:01] LABS: BUN Creatinine Ratio 24.1 (10-20); Calcium 8.2 mg/dl (8.5-10.1); Creatinine Clr Calc Pharmacy 19.2 ml/min; Est GFR (African American) 31.1; Est GFR (Non-African American) 26.8; Potassium 4.5 mmol/L (3.5-5.1)
--- NOTE | 2020-09-13 08:16 | Surgery Consultation ---
Date of Consultation September 13, 2020 Assessment & Plan (1) Diverticulitis: This patient has diverticulitis. There is no evidence of abscess. I agree with continuing IV antibiotics and conservative measures. There was a finding that would require colonoscopy after resolution of the diverticulitis. There is no indication for immediate surgical intervention at this time. History of Present Illness Reason for Consultation: Acute sigmoid diverticulitis Requesting Physician: Fay Celeste MD Attending Physician: Fay Celeste MD History of Present Illness I been asked by Dr. Celeste to see this 85-year-old female who was admitted with diverticulitis that was not improving on outpatient oral antibiotics. The patient describes an approximate 2-week history of discomfort in the left lower quadrant but also across the upper abdomen. She never had anything like this before. She went to the emergency room where a CT scan identified diverticulitis. She was placed on Cipro. She completed the Cipro course this past Wednesday however the pain persisted. She was then placed on Augmentin. Yesterday she developed vomiting. She had had some nausea intermittently but had not vomited until yesterday. The pain was not improving so she presented to the emergency room. She does not think she has had fever. The pain does not radiate. Prior to the original onset of the symptoms her bowels are moving without diarrhea or constipation. She had no melena or hematochezia. She denies dysuria and hematuria. She had no pneumaturia. Allergies Allergy/AdvReac Type Severity Reaction Status Date / Time Sulfa (Sulfonamide Allergy Severe ANAPHYLAXIS; Verified 09/12/20 12:36 Antibiotics) TAKES AMARYL W/O REACTION nystatin Allergy Unknown Wheezing Verified 09/12/20 12:36 thyroid, pork Allergy Unknown "ALL Verified 09/12/20 12:36 THYROID AGENTS" allopurinol Allergy Unknown Verified 09/12/20 12:36 cephalexin [From Keflex] Allergy Headahce; Verified 09/12/20 12:36 Nausea; Rash Cephalosporins AdvReac Intermediate KEFLEX Verified 09/12/20 12:36 ALLERGY -NAUSEA Home Medications Medication Instructions Recorded Confirmed Type glucosamine-chondroitin [Osteo 2 tab PO BID 05/13/18 09/12/20 History Bi-Flex] acetaminophen 500 mg tablet 500 mg PO BID PRN tab 05/11/19 09/12/20 History lancets 25 gauge #100 ea 05/23/19 09/10/20 History nebulizers #1 ea 07/18/19 09/10/20 Rx levalbuterol HCl 1.25 mg/3 mL 1.25 mg INH Q4H PRN #90 ml 07/28/19 09/12/20 Rx solution for nebulization Novolog Flexpen U-100 Insulin 100 See Rx Instructions SUBCUT 12/25/19 09/12/20 Rx unit/mL (3 mL) subcutaneous .COMPLEX #60 ml NS insulin glargine U-300 conc 300 See Rx Instructions SUBCUT HS #9 ml 12/25/19 09/12/20 Rx unit/mL (1.5 mL) subcutaneous pen simvastatin 40 mg tablet 40 mg PO HS #90 tab 01/02/20 09/12/20 Rx telmisartan 40 mg tablet 40 mg PO DAILY #90 tab 06/11/20 09/12/20 Rx albuterol sulfate 90 mcg/actuation 2 inh INHALATION QID PRN #1 ea 06/20/20 09/12/20 Rx breath activated powder inhaler OneTouch Delica Lancets 33 gauge #400 ea NS 06/24/20 09/10/20 Rx OneTouch Ultra Blue Test Strip #400 ea NS 06/24/20 09/10/20 Rx ferrous sulfate 325 mg (65 mg 325 mg PO DAILY tab 06/24/20 09/12/20 History iron) tablet budesonide-formoterol HFA 160 2 puff INHALATION BID #10.2 g 06/25/20 09/12/20 Rx mcg-4.5 mcg/actuation aerosol inhaler tiotropium bromide 2.5 2 inh INHALATION QAM #4 g 06/25/20 09/12/20 Rx mcg/actuation mist for inhalation apixaban 2.5 mg tablet 2.5 mg PO BID #180 tab 07/22/20 09/12/20 Rx famotidine 20 mg tablet 20 mg PO DAILY #30 tab 08/19/20 09/12/20 Rx BD Ultra-Fine Vielka Pen Needle 32 #400 ea NS 08/27/20 09/10/20 Rx gauge x 5/32" calcium carbonate 600 mg calcium 600 mg PO DAILY #90 tab 09/02/20 09/12/20 Rx (1,500 mg) tablet Saccharomyces boulardii [Florastor] 250 mg PO BID #20 cap 09/09/20 09/12/20 Rx amoxicillin-pot clavulanate 1 tab PO BID #20 tab 09/09/20 09/12/20 Rx [Augmentin] gabapentin 600 mg tablet 600 mg PO BID tab 09/10/20 09/12/20 History allopurinol 0 mg PO QAM 09/12/20 09/12/20 History carvedilol 0 mg PO BID 09/12/20 09/12/20 History furosemide [Lasix] 0 mg PO Q OTHER DAY 09/12/20 09/12/20 History Patient History Medical History Adverse reaction to anesthetic agent Hard to wake up Asthma STABLE CAD (coronary artery disease) NON-OBSTRUCTIVE Cardiorenal syndrome Chronic back pain RLE RADICULOPATHY Chronic kidney disease, stage III (moderate) Congestive heart failure DIASTOLIC COPD (chronic obstructive pulmonary disease) STABLE Depression Diabetes mellitus, type 2 GERD (gastroesophageal reflux disease) CONTROLLED Gout Headache REASON FOR PROCEDURE Heart failure Hiatal hernia History of blood transfusion S/P HIP SURGERY History of central retinal artery occlusion History of hypothyroidism EUTHYROID ON MORE RECENT TESTING Hyperlipidemia Hypertension Hyponatremia Nocturnal hypoxemia ON O2 2L HS Osteoarthritis Pulmonary embolism Pulmonary HTN SEVERE PULMONARY HTN (RVSP > 60MMHG) Seizure 15 YEARS AGO; NO ISSUES SINCE Tremor ESSENTIAL TREMOR (HEAD) Valvular disease MODERATE TO SEVERE TR. MODERATE AV SCLEROSIS Surgical History History of cardiac cath 2008= NO STENTS History of cataract surgery bilateral History of dacryocystorhinostomy bilateral History of dilation and curettage History of surgery CYSTOCELE REPAIR RECOTOCELE REPAIR History of temporal artery biopsy 02/08/14= MAC SEDATION WITHOUT ISSUES AT [facility] History of total hip arthroplasty (~07/16/09) LEFT Family History Father , Age 60 from [place] Myocardial infarction Diabetes Hypertension Grandfather Stroke Mother Cancer Hearing loss Allergies Aunt Hearing loss Other Asthma Coronary heart disease Heart disease No family history of adverse response to anesthesia No family history of bleeding disorder Denies family history of Ovarian cancer Breast cancer Colorectal cancer Social History Smoking Status: Never smoker Second Hand Exposure: No; Do You Dip or Chew Tobacco: No; Hx Alcohol Use: No Hx Substance Use: No Preferred Language: Slovenian Communication Ability: Effective Visual Impairment: Limited Hearing Ability: Normal Logistics Support Required: No Beliefs That Will Affect Care: None marital status: / Current Living Situation: Family Current Living Situation Comment: pt is sister's caregiver current occupational status: retired How many Children do You have: 2 Other Information That Helps Us Care for You: No Feels Safe at Home: Yes Safety Concerns: Feels Safe At This Time Childhood Exposure to Second-Hand Smoke: No caffeine: Yes Dental Care, Regularly: Yes Physical Activity Frequency: Does not Exercise Seatbelt Use: always Sunscreen Use: Yes Assistive Devices: Walker Physical Exam Constitutional: no acute distress Neck: trachea midline Respiratory: normal respiratory effort, lungs clear to auscultation Cardiovascular: Rate/Rhythm: regular rate and regular rhythm Gastrointestinal (Abdomen): Inspection/Auscultation: normal bowel sounds; abdomen not distended Percussion/Palpation: + abdomen tender (Mild in the upper abdomen and left lower quadrant) and abdomen soft; no guarding Lymphatic: no cervical lymphadenopathy Results & Data ([facility]) Vital Signs (Past 12 Hours) Vital Signs Temp Pulse Resp BP Pulse Ox 09/13/20 07:39 36.4 C L 62 18 113/62 97 09/12/20 23:09 36.4 C L 85 14 159/84 H 94 Laboratory Results 09/13/20 09/13/20 09/13/20 Range/Units 06:10 06:10 06:10 WBC 10.65 (4.8-10.8) K/uL RBC 3.38 L (4.2-5.4) M/uL Hgb 10.8 L (12.0-16.0) g/dL POC Hgb (12.0-16.0) g/dl Hct 32.6 L (37-47) % POC Hct (37-47) % MCV 96.4 (80-100) fL MCH 32.0 (25-34) pg MCHC 33.1 (32-36) g/dL RDW Std Deviation 53.4 H (36.4-46.3) fL RDW Coeff of Terri 15.3 H (11.5-14.5) % Plt Count 207 (130-400) K/uL MPV 11.9 H (7.4-10.4) fL Immature Gran % (Auto) 0.3 % Neut % (Auto) 86.1 % Lymph % (Auto) 8.7 % [place] % (Auto) 4.8 % Eos % (Auto) 0.0 % Baso % (Auto) 0.1 % Neut # (Auto) 9.17 H (1.4-6.5) K/uL Lymph # (Auto) 0.93 L (1.2-3.4) K/uL [place] # (Auto) 0.51 (0.11-0.59) K/uL Eos # (Auto) 0.00 (0-0.5) K/uL Baso # (Auto) 0.01 (0-0.2) K/uL Immature Gran # (Auto) 0.03 H (0.00-0.02) K/uL POC Sodium (135-144) mmol/L Sodium 139 (136-145) mmol/L POC Potassium (3.3-5.0) mmol/L Potassium 4.5 (3.5-5.1) mmol/L POC Chloride (101-112) mmol/L Chloride 108 H (98-107) mmol/L Carbon Dioxide 21 (21-32) mmol/L POC Total CO2 (24-31) mmol/L Anion Gap 10.0 (3-11) POC Anion Gap (16-25) mmol/L POC BUN (7-18) mg/dl BUN 41 H (7-18) mg/dl Creatinine 1.70 H (0.6-1.2) mg/dl POC Creatinine (0.6-1.3) mg/dl Est Cr Clr Drug Dosing 19.2 ml/min Est GFR ( Amer) 31.1 Est GFR (Non-Af Amer) 26.8 BUN/Creatinine Ratio 24.1 H (10-20) Glucose 154 H (70-99) mg/dl POC Glucose (70-99) mg/dl POC Glucose (other) (70-99) mg/dl Estimat Average Glucose Pending Hemoglobin A1c Pending Calcium 8.2 L (8.5-10.1) mg/dl POC Ioniz Calcium Pramod (1.12-1.32) mmol/l Total Bilirubin (0.2-1) mg/dl AST (15-37) U/L ALT (12-78) U/L Alkaline Phosphatase (45-117) U/L Total Protein (6.4-8.2) gm/dl Albumin (3.4-5.0) gm/dl Globulin (2.5-4.0) gm/dl Albumin/Globulin Ratio (0.9-2) Lipase (73-393) U/L COVID-19 Eval Order SARS-CoV-2, RNA, NAAT (NEGATIVE) 09/13/20 09/12/20 09/12/20 Range/Units 05:52 23:54 20:38 WBC (4.8-10.8) K/uL RBC (4.2-5.4) M/uL Hgb (12.0-16.0) g/dL POC Hgb (12.0-16.0) g/dl Hct (37-47) % POC Hct (37-47) % MCV (80-100) fL MCH (25-34) pg MCHC (32-36) g/dL RDW Std Deviation (36.4-46.3) fL RDW Coeff of Terri (11.5-14.5) % Plt Count (130-400) K/uL MPV (7.4-10.4) fL Immature Gran % (Auto) % Neut % (Auto) % Lymph % (Auto) % [place] % (Auto) % Eos % (Auto) % Baso % (Auto) % Neut # (Auto) (1.4-6.5) K/uL Lymph # (Auto) (1.2-3.4) K/uL [place] # (Auto) (0.11-0.59) K/uL Eos # (Auto) (0-0.5) K/uL Baso # (Auto) (0-0.2) K/uL Immature Gran # (Auto) (0.00-0.02) K/uL POC Sodium (135-144) mmol/L Sodium (136-145) mmol/L POC Potassium (3.3-5.0) mmol/L Potassium (3.5-5.1) mmol/L POC Chloride (101-112) mmol/L Chloride (98-107) mmol/L Carbon Dioxide (21-32) mmol/L POC Total CO2 (24-31) mmol/L Anion Gap (3-11) POC Anion Gap (16-25) mmol/L POC BUN (7-18) mg/dl BUN (7-18) mg/dl Creatinine (0.6-1.2) mg/dl POC Creatinine (0.6-1.3) mg/dl Est Cr Clr Drug Dosing ml/min Est GFR ( Amer) Est GFR (Non-Af Amer) BUN/Creatinine Ratio (10-20) Glucose (70-99) mg/dl POC Glucose 145 H 181 H 175 H (70-99) mg/dl POC Glucose (other) (70-99) mg/dl Estimat Average Glucose Hemoglobin A1c Calcium (8.5-10.1) mg/dl POC Ioniz Calcium Pramod (1.12-1.32) mmol/l Total Bilirubin (0.2-1) mg/dl AST (15-37) U/L ALT (12-78) U/L Alkaline Phosphatase (45-117) U/L Total Protein (6.4-8.2) gm/dl Albumin (3.4-5.0) gm/dl Globulin (2.5-4.0) gm/dl Albumin/Globulin Ratio (0.9-2) Lipase (73-393) U/L COVID-19 Eval Order SARS-CoV-2, RNA, NAAT (NEGATIVE) 09/12/20 09/12/20 09/12/20 Range/Units 15:19 15:19 12:03 WBC (4.8-10.8) K/uL RBC (4.2-5.4) M/uL Hgb (12.0-16.0) g/dL POC Hgb 12.9 (12.0-16.0) g/dl Hct (37-47) % POC Hct 38 (37-47) % MCV (80-100) fL MCH (25-34) pg MCHC (32-36) g/dL RDW Std Deviation (36.4-46.3) fL RDW Coeff of Terri (11.5-14.5) % Plt Count (130-400) K/uL MPV (7.4-10.4) fL Immature Gran % (Auto) % Neut % (Auto) % Lymph % (Auto) % [place] % (Auto) % Eos % (Auto) % Baso % (Auto) % Neut # (Auto) (1.4-6.5) K/uL Lymph # (Auto) (1.2-3.4) K/uL [place] # (Auto) (0.11-0.59) K/uL Eos # (Auto) (0-0.5) K/uL Baso # (Auto) (0-0.2) K/uL Immature Gran # (Auto) (0.00-0.02) K/uL POC Sodium 138 (135-144) mmol/L Sodium (136-145) mmol/L POC Potassium 4.6 (3.3-5.0) mmol/L Potassium (3.5-5.1) mmol/L POC Chloride 108 (101-112) mmol/L Chloride (98-107) mmol/L Carbon Dioxide (21-32) mmol/L POC Total CO2 23 L (24-31) mmol/L Anion Gap (3-11) POC Anion Gap 13.0 L (16-25) mmol/L POC BUN 37 H (7-18) mg/dl BUN (7-18) mg/dl Creatinine (0.6-1.2) mg/dl POC Creatinine 1.3 (0.6-1.3) mg/dl Est Cr Clr Drug Dosing ml/min Est GFR ( Amer) Est GFR (Non-Af Amer) BUN/Creatinine Ratio (10-20) Glucose (70-99) mg/dl POC Glucose (70-99) mg/dl POC Glucose (other) 118 H (70-99) mg/dl Estimat Average Glucose Hemoglobin A1c Calcium (8.5-10.1) mg/dl POC Ioniz Calcium Pramod 1.12 (1.12-1.32) mmol/l Total Bilirubin (0.2-1) mg/dl AST (15-37) U/L ALT (12-78) U/L Alkaline Phosphatase (45-117) U/L Total Protein (6.4-8.2) gm/dl Albumin (3.4-5.0) gm/dl Globulin (2.5-4.0) gm/dl Albumin/Globulin Ratio (0.9-2) Lipase (73-393) U/L COVID-19 Eval [facility] [place], RNA, NAAT NEGATIVE (NEGATIVE) 09/12/20 09/12/20 Range/Units 11:56 11:56 WBC 12.16 H (4.8-10.8) K/uL RBC 3.81 L (4.2-5.4) M/uL Hgb 12.3 (12.0-16.0) g/dL POC Hgb (12.0-16.0) g/dl Hct 36.9 L (37-47) % POC Hct (37-47) % MCV 96.9 (80-100) fL MCH 32.3 (25-34) pg MCHC 33.3 (32-36) g/dL RDW Std Deviation 53.3 H (36.4-46.3) fL RDW Coeff of Terri 15.1 H (11.5-14.5) % Plt Count 218 (130-400) K/uL MPV 11.4 H (7.4-10.4) fL Immature Gran % (Auto) 0.3 % Neut % (Auto) 74.2 % Lymph % (Auto) 14.6 % [place] % (Auto) 8.7 % Eos % (Auto) 2.0 % Baso % (Auto) 0.2 % Neut # (Auto) 9.02 H (1.4-6.5) K/uL Lymph # (Auto) 1.77 (1.2-3.4) K/uL [place] # (Auto) 1.06 H (0.11-0.59) K/uL Eos # (Auto) 0.24 (0-0.5) K/uL Baso # (Auto) 0.03 (0-0.2) K/uL Immature Gran # (Auto) 0.04 H (0.00-0.02) K/uL POC Sodium (135-144) mmol/L Sodium 138 (136-145) mmol/L POC Potassium (3.3-5.0) mmol/L Potassium 4.5 (3.5-5.1) mmol/L POC Chloride (101-112) mmol/L Chloride 108 H (98-107) mmol/L Carbon Dioxide 22 (21-32) mmol/L POC Total CO2 (24-31) mmol/L Anion Gap 9.0 (3-11) POC Anion Gap (16-25) mmol/L POC BUN (7-18) mg/dl BUN 40 H (7-18) mg/dl Creatinine 1.44 H (0.6-1.2) mg/dl POC Creatinine (0.6-1.3) mg/dl Est Cr Clr Drug Dosing 22.7 ml/min Est GFR ( Amer) 38.0 Est GFR (Non-Af Amer) 32.8 BUN/Creatinine Ratio 27.8 H (10-20) Glucose 115 H (70-99) mg/dl POC Glucose (70-99) mg/dl POC Glucose (other) (70-99) mg/dl Estimat Average Glucose Hemoglobin A1c Calcium 9.3 (8.5-10.1) mg/dl POC Ioniz Calcium Pramod (1.12-1.32) mmol/l Total Bilirubin 0.7 (0.2-1) mg/dl AST 28 (15-37) U/L ALT 50 (12-78) U/L Alkaline Phosphatase 73 (45-117) U/L Total Protein 8.2 (6.4-8.2) gm/dl Albumin 4.0 (3.4-5.0) gm/dl Globulin 4.2 H (2.5-4.0) gm/dl Albumin/Globulin Ratio 0.9 (0.9-2) Lipase 317 (73-393) U/L COVID-19 Eval Order SARS-CoV-2, RNA, NAAT (NEGATIVE) Diagnostic Findings CT abd pelvis IV con only CLINICAL HISTORY: abd pain COMPARISON STUDY: 09/09/2020 TECHNIQUE: The patient was scanned in a dynamic helical fashion during intravenous administration of 94 cc of Optiray 320 A dose lowering technique was utilized adhering to the principles of ALARA. CT DOSE: 458.91 mGycm FINDINGS: Lower chest: There is respiratory motion artifact. There is minor dependent atelectasis. Liver: The contrast-enhanced liver is normal in size, contour, and attenuation. There is no intrahepatic biliary ductal dilatation. The hepatic veins and portal veins are patent. Gallbladder: Unremarkable. Spleen: Normal in size and attenuation. Pancreas: Unremarkable. Adrenal glands: There is a 2 cm left adrenal adenoma. Kidneys: There is a 12 mm right renal lesion, likely representing a hyperdense cyst. This has a Hounsfield attenuation value of 52. On the prior noncontrast study this had Hounsfield attenuation value of 49. Bowel: There are multiple fluid-filled bowel loops with scattered air-fluid levels. There are no transition zones indicate bowel obstruction. There is persistent extensive colonic diverticulosis. There is a 24 mm hypodense sigmoid lesion. There is minimal perisigmoid stranding. Diagnostic considerations include a perisigmoid inflammatory mass versus mucosal/submucosal lesion.. As was previously stated, follow-up colonoscopy is recommended. Note also is made of duodenal wall thickening/edema. Peritoneum: There is no intraperitoneal free air or abdominal ascites. A small fat-containing umbilical hernia Vasculature: The abdominal aorta is normal in course and caliber. Adenopathy: None. Pelvic viscera: Evaluate the pelvis is somewhat limited due to beam hardening artifact from the patient's left hip arthroplasty. No pathologic pelvic masses are identified. Skeletal structures: There are multilevel degenerative changes within the spine lumbar spine with multilevel spinal stenosis. No destructive skeletal lesions are visualized is an old superior endplate L5 compression deformity IMPRESSION: 1. No evidence of bowel obstruction. No evidence of free air 2. Duodenal wall thickening/edema 3. Extensive sigmoid diverticulosis. Mild perisigmoid stranding, and a stable 24 mm hypodense sigmoid lesion. This could represent a perisigmoid inflammatory mass versus mucosal/submucosal lesion. As previously stated follow-up colonoscopy is recommended 4. 2 cm left adrenal adenoma 5. 12 mm right renal lesion likely representing a hyperdense cyst
[2020-09-13 08:32] LABS: Estimated Average Glucose 154 mg/dl
[2020-09-13] MEDS: FLUTICASONE/VILANTEROL 100/25MCG 14 PUFFS/INHALER INH SCH (08:33)
[2020-09-13] MEDS: GABAPENTIN 600 MG TAB PO SCH ×2 (08:34→20:44)
[2020-09-13] MEDS: FAMOTIDINE 20 MG TAB PO SCH (08:34)
[2020-09-13] MEDS: SACCHAROMYCES BOULARDII 250 MG CAP PO SCH ×2 (08:34→20:45)
[2020-09-13] MEDS: UMECLIDINIUM BROMIDE 62.5MCG/BLISTER 7 PUFFS/INHALER INH SCH (08:34)
[2020-09-13] MEDS: APIXABAN 2.5 MG TAB PO SCH ×2 (08:34→20:45)
[2020-09-13] MEDS: CALCIUM CARBONATE 1250MG TAB PO SCH (08:35)
[2020-09-13] MEDS: allopurinoL 100 MG TAB PO SCH (08:35)
[2020-09-13] MEDS: carvediloL 3.125 MG TAB PO SCH ×2 (08:35→20:45)
[2020-09-13] MEDS ORDERED: TELMISARTAN 40 MG TAB PO SCH (09:00)
[2020-09-13] MEDS: SODIUM CHLORIDE 0.9% 1000ML 1,000 ML IV SCH ×2 (09:29→22:22)
[2020-09-13 10:11] LABS: Magnesium 2.2 mg/dl (1.8-2.4); Troponin I 0.031 ng/ml (0-0.045)
--- NOTE | 2020-09-13 10:23 | Gastrointestinal Consultation ---
Date of Consultation September 13, 2020 Assessment & Plan (1) Diverticulitis: -Continue IV antibiotic therapy as presently prescribed. -Outpatient colonoscopy in 6-8 weeks. Our office will contact patient to arrange this. Supervising Physician Co-Signing Physician Notes Agree with ANN Paulson as above Abd: Soft, NT, ND, +BS Continue current therapy, added Carafate Advance diet as tolerated No plans for invasive GI workup at this time History of Present Illness Reason for Consultation: extensive sigmoid diverticulitis, sigmoid lesion Attending Physician: Fay Celeste MD History of Present Illness Patient is an 85 yo female admitted with diverticulitis refractory to outpatient oral antibiotic treatment. The patient describes a 2 week history of discomfort in the left lower quadrant. She explains to me that she kept trying to ignore the discomfort, thinking it would subside on its own. She was given Cipro as an outpatient, but apparently symptoms continued. She was reportedly then given Augmentin. Her symptoms persisted and she developed vomiting. She reports that this triggered her to present to the emergency room for further evaluation of her symptoms. A CT scan performed indicated GI findings as follows: CT: There are multiple fluid-filled bowel loops with scattered air-fluid levels. There are no transition zones indicate bowel obstruction. There is persistent extensive colonic diverticulosis. There is a 24 mm hypodense sigmoid lesion. There is minimal perisigmoid stranding. Diagnostic considerations include a perisigmoid inflammatory mass versus mucosal/submucosal lesion.. As was previously stated, follow-up colonoscopy is recommended. Note also is made of duodenal wall thickening/edema The patient is currently admitted and is being treated with IV Zosyn. She reports some improvement of her LLQ abdominal pain. She notes that she feels somewhat better since sitting up in the chair out of bed. She denies further new issues. No pertinent family history. History of colonoscopy with diverticulosis in 2009. Allergies Allergy/AdvReac Type Severity Reaction Status Date / Time Sulfa (Sulfonamide Allergy Severe ANAPHYLAXIS; Verified 09/12/20 12:36 Antibiotics) TAKES AMARYL W/O REACTION nystatin Allergy Unknown Wheezing Verified 09/12/20 12:36 thyroid, pork Allergy Unknown "ALL Verified 09/12/20 12:36 THYROID AGENTS" allopurinol Allergy Unknown Verified 09/12/20 12:36 cephalexin [From Keflex] Allergy Headahce; Verified 09/12/20 12:36 Nausea; Rash Cephalosporins AdvReac Intermediate KEFLEX Verified 09/12/20 12:36 ALLERGY -NAUSEA Home Medications Medication Instructions Recorded Confirmed Type glucosamine-chondroitin [Osteo 2 tab PO BID 05/13/18 09/12/20 History Bi-Flex] acetaminophen 500 mg tablet 500 mg PO BID PRN tab 05/11/19 09/12/20 History lancets 25 gauge #100 ea 05/23/19 09/10/20 History nebulizers #1 ea 07/18/19 09/10/20 Rx levalbuterol HCl 1.25 mg/3 mL 1.25 mg INH Q4H PRN #90 ml 07/28/19 09/12/20 Rx solution for nebulization Novolog Flexpen U-100 Insulin 100 See Rx Instructions SUBCUT 12/25/19 09/12/20 Rx unit/mL (3 mL) subcutaneous .COMPLEX #60 ml NS insulin glargine U-300 conc 300 See Rx Instructions SUBCUT HS #9 ml 12/25/19 09/12/20 Rx unit/mL (1.5 mL) subcutaneous pen simvastatin 40 mg tablet 40 mg PO HS #90 tab 01/02/20 09/12/20 Rx telmisartan 40 mg tablet 40 mg PO DAILY #90 tab 06/11/20 09/12/20 Rx albuterol sulfate 90 mcg/actuation 2 inh INHALATION QID PRN #1 ea 06/20/20 09/12/20 Rx breath activated powder inhaler OneTouch Delica Lancets 33 gauge #400 ea NS 06/24/20 09/10/20 Rx OneTouch Ultra Blue Test Strip #400 ea NS 06/24/20 09/10/20 Rx ferrous sulfate 325 mg (65 mg 325 mg PO DAILY tab 06/24/20 09/12/20 History iron) tablet budesonide-formoterol HFA 160 2 puff INHALATION BID #10.2 g 06/25/20 09/12/20 Rx mcg-4.5 mcg/actuation aerosol inhaler tiotropium bromide 2.5 2 inh INHALATION QAM #4 g 06/25/20 09/12/20 Rx mcg/actuation mist for inhalation apixaban 2.5 mg tablet 2.5 mg PO BID #180 tab 07/22/20 09/12/20 Rx famotidine 20 mg tablet 20 mg PO DAILY #30 tab 08/19/20 09/12/20 Rx BD Ultra-Fine Vielka Pen Needle 32 #400 ea NS 08/27/20 09/10/20 Rx gauge x /32" calcium carbonate 600 mg calcium 600 mg PO DAILY #90 tab 09/02/20 09/12/20 Rx (1,500 mg) tablet Saccharomyces boulardii [Florastor] 250 mg PO BID #20 cap 09/09/20 09/12/20 Rx amoxicillin-pot clavulanate 1 tab PO BID #20 tab 09/09/20 09/12/20 Rx [Augmentin] gabapentin 600 mg tablet 600 mg PO BID tab 09/10/20 09/12/20 History allopurinol 0 mg PO QAM 09/12/20 09/12/20 History carvedilol 0 mg PO BID 09/12/20 09/12/20 History furosemide [Lasix] 0 mg PO Q OTHER DAY 09/12/20 09/12/20 History Patient History Medical History (Updated 09/13/20 @ 09:58 by Alejandro Delgado) Adverse reaction to anesthetic agent Hard to wake up Asthma STABLE CAD (coronary artery disease) NON-OBSTRUCTIVE Cardiorenal syndrome Chronic back pain RLE RADICULOPATHY Chronic kidney disease, stage III (moderate) Congestive heart failure DIASTOLIC COPD (chronic obstructive pulmonary disease) STABLE Depression Diabetes mellitus, type 2 GERD (gastroesophageal reflux disease) CONTROLLED Gout Headache REASON FOR PROCEDURE Heart failure Hiatal hernia History of blood transfusion S/P HIP SURGERY History of central retinal artery occlusion History of hypothyroidism EUTHYROID ON MORE RECENT TESTING Hyperlipidemia Hypertension Hyponatremia Nocturnal hypoxemia ON O2 2L HS Osteoarthritis Pulmonary embolism Pulmonary HTN SEVERE PULMONARY HTN (RVSP > 60MMHG) Seizure 15 YEARS AGO; NO ISSUES SINCE Tremor ESSENTIAL TREMOR (HEAD) Valvular disease MODERATE TO SEVERE TR. MODERATE AV SCLEROSIS Surgical History History of cardiac cath 2008= NO STENTS History of cataract surgery bilateral History of dacryocystorhinostomy bilateral History of dilation and curettage History of surgery CYSTOCELE REPAIR RECOTOCELE REPAIR History of temporal artery biopsy 02/08/14= MAC SEDATION WITHOUT ISSUES AT [facility] History of total hip arthroplasty (~07/16/09) LEFT Family History Father , Age 60 from [place] Myocardial infarction Diabetes Hypertension Grandfather Stroke Mother Cancer Hearing loss Allergies Aunt Hearing loss Other Asthma Coronary heart disease Heart disease No family history of adverse response to anesthesia No family history of bleeding disorder Denies family history of Ovarian cancer Breast cancer Colorectal cancer Social History Smoking Status: Never smoker Second Hand Exposure: No; Do You Dip or Chew Tobacco: No; Hx Alcohol Use: No Hx Substance Use: No Preferred Language: Kuwaiti Communication Ability: Effective Visual Impairment: Limited Hearing Ability: Normal Enrollment Consultant Required: No Beliefs That Will Affect Care: None marital status: / Current Living Situation: Family Current Living Situation Comment: pt is sister's caregiver current occupational status: retired How many Children do You have: 2 Other Information That Helps Us Care for You: No Feels Safe at Home: Yes Safety Concerns: Feels Safe At This Time Childhood Exposure to Second-Hand Smoke: No caffeine: Yes Dental Care, Regularly: Yes Physical Activity Frequency: Does not Exercise Seatbelt Use: always Sunscreen Use: Yes Assistive Devices: Walker Review of Systems Constitutional: no fever and no chills Respiratory: no cough and no dyspnea Cardiovascular: no chest pain Gastrointestinal: + abdominal pain and + constipation Integumentary: no rash Psychiatric: no problem reported Results & Data ([facility]) Vital Signs (Past 12 Hours) Vital Signs Temp Pulse Resp BP Pulse Ox 09/13/20 07:39 36.4 C L 62 18 113/62 97 09/12/20 23:09 36.4 C L 85 14 159/84 H 94 PG Care Time/CCT Total # of Minutes Spent Total Time Spent with Patient: Total time spent is greater than 50% in coordination of care (as documented) at patient's floor/unit and/or counseling patient: Coding Level of Care Code 75238 Initial Inpt Care Lvl 3 Diagnoses Diverticulitis K57.92
[2020-09-13] MEDS ORDERED: PANTOprazole 40 MG in SYRINGE 0 ML IV SCH (11:00)
--- NOTE | 2020-09-13 11:48 | Pharmacy Report ---
Pharmacy Glycemic Short Note 2 - Date of Service September 13, 2020 - Glycemic Short BSG Results (Last 24 hours): 09/12/20 09/12/20 09/12/20 11:56 12:03 20:38 Glucose 115 H POC Glucose 175 H POC Glucose (other) 118 H 09/12/20 09/13/20 09/13/20 23:54 05:52 06:10 Glucose 154 H POC Glucose 181 H 145 H POC Glucose (other) OUTPATIENT ANTIDIABETIC REGIMEN: * Toujeo 20-25 units HS, Novolog 15-20 units with meals * A1c ~7.0% ASSESSMENT: * Patient admitted with diverticulitis, NPO on admission. Type 2 diabetic managed on insulin at home * Continues NPO status today, fasting BSG 145 mg/dL - received total of 7 units of insulin yesterday, of which 5 were basal * Continue with basal scale for HS / continue same CF/CR PLAN FOR INPATIENT GLYCEMIC CONTROL: * Hold outpatient oral diabetes medications * Basal insulin * Lantus 5-15 units HS * Bolus insulin * NovoLog per scale ACHS or Q6hrs while NPO * Goal Range: Low 120 mg/dL - High 160 mg/dL * Correction Factor: 40 mg/dL/unit * Nutritional / Prandial insulin per carb ratio of 1 unit per 13 grams CHO consumed PLAN FOR DISCHARGE: * A1c 7% - reasonable to continue home insulin regimen on discharge as long as no contraindications are present
[2020-09-13 11:54] LABS: Appearance Urine Clear (Clear); Bacteria Urine Automated Negative (Negative); Bilirubin Urine Negative (Negative); Blood Urine Negative (Negative); Cast Urine Automated 0 /lpf (0-5); Color Urine Yellow; Epithelial Cell Urine Auto >30 /lpf (0-5); Glucose Urine UA Negative (Negative); Ketones Urine Trace (Negative); Leukocyte Esterase Urine Negative (Negative); Nitrite Urine Negative (Negative); Protein Urine 1+ (Negative); RBC Urine Automated 0-4 /hpf (0-4); Specific Gravity Urine 1.042 (1.000-1.030); Urobilinogen Urine Negative (Negative)
[2020-09-13] MEDS ORDERED: traMADol HCL 50 MG TABLET PO PRN (12:49)
--- NOTE | 2020-09-13 14:21 | Hospitalist Progress Note ---
Date of Service September 13, 2020 Assessment & Plan (1) Diverticulitis of sigmoid colon: Ms. Stokes is an 85-year-old female with a history of Pulmonary Hypertension (Group 2/3) previously on sildenafil, Chronic Diastolic CHF, Mild Non- obstructive CAD, Hypertension, COPD, Chronic Kidney Disease, Type 2 Diabetes Mellitus, Atrial Flutter, Tricuspid Regurgitation, Aortic Valve Sclerosis, COPD/Asthma, GERD, Hiatal Hernia, Laryngopharyngeal Reflux, Depression, Lumbar Spinal Stenosis, and Diverticulosis Coli who is currently being treated for Acute Sigmoid Diverticulitis as an outpatient with Augmentin starting 3 days ago, but she is failing with this treatment. Unfortunately she is experiencing worsening abdominal pain, nausea without vomiting, decreased appetite (although has eaten breakfast every morning except for today), and diffuse abdominal bloating. She denies any fevers, although she has had some chills. Patient has had abdominal pain for the past week, and prior to that she took a course of Cipro for a suspected UTI. She initially presented to the ER on 09/08/2020 complaining of abdominal pain and constipation. Supportive treatment and advised return if symptoms persisted. She did begin moving her bowels 09/08/20 into 09/09/20, but her abdominal pain persisted. Review of her CT Scan on 09/09/20 showed finding consistent with an Acute Sigmoid Diverticulitis. She was started on Augmentin 875 mg b.i.d.. On admission , WBC# is elevated with a leftward shift, her oral intake has been poor, and she appears dehydrated. CT Scan 09/12/2020 shows: 1. Extensive sigmoid diverticulosis. 2. Mild perisigmoid stranding, and a stable 24 mm hypodense sigmoid lesion. 3. This could represent a perisigmoid inflammatory mass versus mucosal/submucosal lesion. 4. Follow-up colonoscopy is recommended. Continue Zosyn (on day 2) Antiemetics Pain control -- added tramadol prn as she had adverse reaction to morphine. Avoid toradol in patient with CKD Started IVF this morning as not previously ordered and placed on daily protonix IVP and would continue daily protonix at discharge given her hx reflux and previously no PPI and H2 Continue NPO General surgery on consult -- conservative management GI on consult -- conservative Will need f/u c-scope outpatient for further evaluation for possible malignancy WBC improving, 10.6k, afebrile, VSS Monitor labs in am and replace electrolytes as needed (2) Abnormal CT scan, sigmoid colon: CT Scan 09/12/2020 shows: 1. Extensive sigmoid diverticulosis. 2. Mild perisigmoid stranding, and a stable 24 mm hypodense sigmoid lesion. 3. This could represent a perisigmoid inflammatory mass versus mucosal/submucosal lesion. 4. Follow-up colonoscopy is recommended. (3) Dehydration: Got 1L from ER Placed on IVF today as above as patient NPO BMP in AM (4) CAD (coronary artery disease): Mild non-obstructive CAD. -- No symptoms. -- Continue Coreg 3.125 mg b.i.d.. -- Continue Telmisartan 40 mg daily. (will hold for dehydration) -- Continue Apixiban 2.5 mg b.i.d.. -- Continue Simvastatin 40 mg daily. (5) Pulmonary HTN: -- Estimated RVSP on Echocardiogram 03/05/2020 is 40 to 50 mmHg. -- Normal RV systolic function. -- Continue treating underlying COPD/Asthma. -- Supplemental O2 qhs. (6) COPD (chronic obstructive pulmonary disease): -- Continue usual inhalers. -- Duoneb Nebulizers as needed. -- Supplemental O2 qhs. 97% on RA (7) Hypertension: -- Continue Coreg 3.125 mg b.i.d.. -- Continue Telmisartan 40 mg daily. (will hold given dehydration and BP 113/62) (8) Hyperlipidemia: -- Continue Simvastatin 40 mg daily. (9) Atrial flutter: -- Atrial flutter is rate controlled and asymptomatic. -- Continue Coreg 3.125 mg b.i.d.. -- Continue Apixiban 2.5 mg b.i.d.. (10) Diabetes mellitus, type 2: A1c 7.0 -- BSG checks qAC and HS. -- Glycemic Pharmacy Consult. (11) Chronic kidney disease, stage IV (severe): --Baseline CrCl 15-30. --Baseline Cr 1.5 to 1.7. Cr stable, but upper limit of baseline. IVF as above --Trend BMP. Will order PT/OT consults Dispo: continued inpatient stay Admission and Anticipated Discharge Date Admission Date: September 12, 2020 Supervising Physician Co-Signing Physician Notes PA Supervision Note: I did not personally see or examine the patient today, but I verified all zhao points of MAUREEN Castañeda's assessment and plan with the following exceptions/additions: None Subjective Patient evaluated this afternoon sitting up in chair. Has been in and out of bed to help get comfortable. States pain improved from admission but still present, moreso LLQ.. Seen by general surgery this morning and will continue with conservative treatment. Had some issues with morphine and causing worsening nausea and would like to avoid this. Discussed alternatives and she is also continuing with IV tylenol. Episode of emesis yesterday but nothing further. Discussed findings requiring follow up at discharge. Not passing gas or having BM today. Encouraged continued ambulation. She states she had previously been on protonix and pepcid in the past but felt she did not need any further. Discussed restarting protonix daily and would continue at discharge. Early satiety, reflux symptoms upon waking up c/w reflux. No reported fever, chills, chest pain, shortness of breath, dysuria at this time. No prior episodes of diverticulitis, only diverticulosis on prior c-scope early [address] Goodwin. Questions/concerns addressed. Of note, she states there was a spot on her right kidney that she was to have Renal US for further evaluation for Dr. Peña. If warranted, will obtain while inpatient prior to discharge. Review of Systems Review of Systems: All systems reviewed & are unremarkable except as noted in HPI & below Physical Exam Constitutional: well developed, well nourished, cooperative and comfortable; no acute distress Eyes: + anicteric sclerae and PERRL ENMT: mmm Neck: normal visual inspection Respiratory: normal respiratory effort, lungs clear to auscultation Cardiovascular: Rate/Rhythm: + irregularly irregular Heart Sounds: + murmur (systolic) Gastrointestinal (Abdomen): Inspection/Auscultation: + abdomen distended and normal bowel sounds Percussion/Palpation: + abdomen tender (LLQ) and abdomen soft; no guarding and abdomen not rigid Musculoskeletal: Head/Neck/Chest: normocephalic and head atraumatic Skin: warm, dry Neurologic: PERRL, EOMI, accommodation nl, no face palsy, no dysarthria Psychiatric: Orientation: alert and oriented x 3 Genitourinary: NO adan Lymphatic: no cervical or axillary lymphadenopathy Results & Data Results & Data ([facility]) Vital Signs (Past 12 Hours) Vital Signs Temp Pulse Resp BP Pulse Ox 09/13/20 07:39 36.4 C L 62 18 113/62 97 Laboratory Results 09/13/20 09/13/20 09/13/20 Range/Units 12:27 11:40 06:10 WBC (4.8-10.8) K/uL RBC (4.2-5.4) M/uL Hgb (12.0-16.0) g/dL Hct (37-47) % MCV (80-100) fL MCH (25-34) pg MCHC (32-36) g/dL RDW Std Deviation (36.4-46.3) fL RDW Coeff of Terri (11.5-14.5) % Plt Count (130-400) K/uL MPV (7.4-10.4) fL Immature Gran % (Auto) % Neut % (Auto) % Lymph % (Auto) % [place] % (Auto) % Eos % (Auto) % Baso % (Auto) % Neut # (Auto) (1.4-6.5) K/uL Lymph # (Auto) (1.2-3.4) K/uL [place] # (Auto) (0.11-0.59) K/uL Eos # (Auto) (0-0.5) K/uL Baso # (Auto) (0-0.2) K/uL Immature Gran # (Auto) (0.00-0.02) K/uL Sodium (136-145) mmol/L Potassium (3.5-5.1) mmol/L Chloride (98-107) mmol/L Carbon Dioxide (21-32) mmol/L Anion Gap (3-11) BUN (7-18) mg/dl Creatinine (0.6-1.2) mg/dl Est Cr Clr Drug Dosing ml/min Est GFR ( Amer) Est GFR (Non-Af Amer) BUN/Creatinine Ratio (10-20) Glucose (70-99) mg/dl POC Glucose 130 H (70-99) mg/dl Estimat Average Glucose mg/dl Hemoglobin A1c (4.5-5.6) % Calcium (8.5-10.1) mg/dl Magnesium 2.2 (1.8-2.4) mg/dl Troponin I 0.031 (0-0.045) ng/ml Urine Color Yellow Urine Appearance Clear (Clear) Urine pH 5.0 (4.5-7.5) Ur Specific [place] 1.042 H (1.000-1.030) Urine Protein 1+ H (Negative) Urine Glucose (UA) Negative (Negative) Urine Ketones Trace H (Negative) Urine Blood Negative (Negative) Urine Nitrite Negative (Negative) Urine Bilirubin Negative (Negative) Urine Urobilinogen Negative (Negative) Ur Leukocyte Esterase Negative (Negative) Urine WBC (Auto) 1-5 (0-5) /hpf Urine RBC (Auto) 0-4 (0-4) /hpf U Hyaline Cast (Auto) 0 (0-5) /lpf U Epithel Cells (Auto) >30 H (0-5) /lpf Urine Bacteria (Auto) Negative (Negative) COVID-19 Eval Order SARS-CoV-2, RNA, NAAT (NEGATIVE) 09/13/20 09/13/20 09/13/20 Range/Units 06:10 06:10 06:10 WBC 10.65 (4.8-10.8) K/uL RBC 3.38 L (4.2-5.4) M/uL Hgb 10.8 L (12.0-16.0) g/dL Hct 32.6 L (37-47) % MCV 96.4 (80-100) fL MCH 32.0 (25-34) pg MCHC 33.1 (32-36) g/dL RDW Std Deviation 53.4 H (36.4-46.3) fL RDW Coeff of Terri 15.3 H (11.5-14.5) % Plt Count 207 (130-400) K/uL MPV 11.9 H (7.4-10.4) fL Immature Gran % (Auto) 0.3 % Neut % (Auto) 86.1 % Lymph % (Auto) 8.7 % [place] % (Auto) 4.8 % Eos % (Auto) 0.0 % Baso % (Auto) 0.1 % Neut # (Auto) 9.17 H (1.4-6.5) K/uL Lymph # (Auto) 0.93 L (1.2-3.4) K/uL [place] # (Auto) 0.51 (0.11-0.59) K/uL Eos # (Auto) 0.00 (0-0.5) K/uL Baso # (Auto) 0.01 (0-0.2) K/uL Immature Gran # (Auto) 0.03 H (0.00-0.02) K/uL Sodium 139 (136-145) mmol/L Potassium 4.5 (3.5-5.1) mmol/L Chloride 108 H (98-107) mmol/L Carbon Dioxide 21 (21-32) mmol/L Anion Gap 10.0 (3-11) BUN 41 H (7-18) mg/dl Creatinine 1.70 H (0.6-1.2) mg/dl Est Cr Clr Drug Dosing 19.2 ml/min Est GFR ( Amer) 31.1 Est GFR (Non-Af Amer) 26.8 BUN/Creatinine Ratio 24.1 H (10-20) Glucose 154 H (70-99) mg/dl POC Glucose (70-99) mg/dl Estimat Average Glucose 154 mg/dl Hemoglobin A1c 7.0 H (4.5-5.6) % Calcium 8.2 L (8.5-10.1) mg/dl Magnesium (1.8-2.4) mg/dl Troponin I (0-0.045) ng/ml Urine Color Urine Appearance (Clear) Urine pH (4.5-7.5) Ur Specific [place] (1.000-1.030) Urine Protein (Negative) Urine Glucose (UA) (Negative) Urine Ketones (Negative) Urine Blood (Negative) Urine Nitrite (Negative) Urine Bilirubin (Negative) Urine Urobilinogen (Negative) Ur Leukocyte Esterase (Negative) Urine WBC (Auto) (0-5) /hpf Urine RBC (Auto) (0-4) /hpf U Hyaline Cast (Auto) (0-5) /lpf U Epithel Cells (Auto) (0-5) /lpf Urine Bacteria (Auto) (Negative) COVID-19 Eval Order SARS-CoV-2, RNA, NAAT (NEGATIVE) 09/13/20 09/12/20 09/12/20 Range/Units 05:52 23:54 20:38 WBC (4.8-10.8) K/uL RBC (4.2-5.4) M/uL Hgb (12.0-16.0) g/dL Hct (37-47) % MCV (80-100) fL MCH (25-34) pg MCHC (32-36) g/dL RDW Std Deviation (36.4-46.3) fL RDW Coeff of Terri (11.5-14.5) % Plt Count (130-400) K/uL MPV (7.4-10.4) fL Immature Gran % (Auto) % Neut % (Auto) % Lymph % (Auto) % [place] % (Auto) % Eos % (Auto) % Baso % (Auto) % Neut # (Auto) (1.4-6.5) K/uL Lymph # (Auto) (1.2-3.4) K/uL [place] # (Auto) (0.11-0.59) K/uL Eos # (Auto) (0-0.5) K/uL Baso # (Auto) (0-0.2) K/uL Immature Gran # (Auto) (0.00-0.02) K/uL Sodium (136-145) mmol/L Potassium (3.5-5.1) mmol/L Chloride (98-107) mmol/L Carbon Dioxide (21-32) mmol/L Anion Gap (3-11) BUN (7-18) mg/dl Creatinine (0.6-1.2) mg/dl Est Cr Clr Drug Dosing ml/min Est GFR ( Amer) Est GFR (Non-Af Amer) BUN/Creatinine Ratio (10-20) Glucose (70-99) mg/dl POC Glucose 145 H 181 H 175 H (70-99) mg/dl Estimat Average Glucose mg/dl Hemoglobin A1c (4.5-5.6) % Calcium (8.5-10.1) mg/dl Magnesium (1.8-2.4) mg/dl Troponin I (0-0.045) ng/ml Urine Color Urine Appearance (Clear) Urine pH (4.5-7.5) Ur Specific [place] (1.000-1.030) Urine Protein (Negative) Urine Glucose (UA) (Negative) Urine Ketones (Negative) Urine Blood (Negative) Urine Nitrite (Negative) Urine Bilirubin (Negative) Urine Urobilinogen (Negative) Ur Leukocyte Esterase (Negative) Urine WBC (Auto) (0-5) /hpf Urine RBC (Auto) (0-4) /hpf U Hyaline Cast (Auto) (0-5) /lpf U Epithel Cells (Auto) (0-5) /lpf Urine Bacteria (Auto) (Negative) COVID-19 Eval Order SARS-CoV-2, RNA, NAAT (NEGATIVE) 09/12/20 09/12/20 Range/Units 15:19 15:19 WBC (4.8-10.8) K/uL RBC (4.2-5.4) M/uL Hgb (12.0-16.0) g/dL Hct (37-47) % MCV (80-100) fL MCH (25-34) pg MCHC (32-36) g/dL RDW Std Deviation (36.4-46.3) fL RDW Coeff of Terri (11.5-14.5) % Plt Count (130-400) K/uL MPV (7.4-10.4) fL Immature Gran % (Auto) % Neut % (Auto) % Lymph % (Auto) % [place] % (Auto) % Eos % (Auto) % Baso % (Auto) % Neut # (Auto) (1.4-6.5) K/uL Lymph # (Auto) (1.2-3.4) K/uL [place] # (Auto) (0.11-0.59) K/uL Eos # (Auto) (0-0.5) K/uL Baso # (Auto) (0-0.2) K/uL Immature Gran # (Auto) (0.00-0.02) K/uL Sodium (136-145) mmol/L Potassium (3.5-5.1) mmol/L Chloride (98-107) mmol/L Carbon Dioxide (21-32) mmol/L Anion Gap (3-11) BUN (7-18) mg/dl Creatinine (0.6-1.2) mg/dl Est Cr Clr Drug Dosing ml/min Est GFR ( Amer) Est GFR (Non-Af Amer) BUN/Creatinine Ratio (10-20) Glucose (70-99) mg/dl POC Glucose (70-99) mg/dl Estimat Average Glucose mg/dl Hemoglobin A1c (4.5-5.6) % Calcium (8.5-10.1) mg/dl Magnesium (1.8-2.4) mg/dl Troponin I (0-0.045) ng/ml Urine Color Urine Appearance (Clear) Urine pH (4.5-7.5) Ur Specific [place] (1.000-1.030) Urine Protein (Negative) Urine Glucose (UA) (Negative) Urine Ketones (Negative) Urine Blood (Negative) Urine Nitrite (Negative) Urine Bilirubin (Negative) Urine Urobilinogen (Negative) Ur Leukocyte Esterase (Negative) Urine WBC (Auto) (0-5) /hpf Urine RBC (Auto) (0-4) /hpf U Hyaline Cast (Auto) (0-5) /lpf U Epithel Cells (Auto) (0-5) /lpf Urine Bacteria (Auto) (Negative) COVID[facility]19 [facility] SARS-[facility]-2, RNA, NAAT NEGATIVE (NEGATIVE) Diagnostic Findings CTA/P IMPRESSION: 1. No evidence of bowel obstruction. No evidence of free air 2. Duodenal wall thickening/edema 3. Extensive sigmoid diverticulosis. Mild perisigmoid stranding, and a stable 24 mm hypodense sigmoid lesion. This could represent a perisigmoid inflammatory mass versus mucosal/submucosal lesion. As previously stated follow-up colonoscopy is recommended 4. 2 cm left adrenal adenoma 5. 12 mm right renal lesion likely representing a hyperdense cyst PG Care Time/CCT Total # of Minutes Spent Total Time Spent with Patient: Total time spent is greater than 50% in co ordination of care (as documented) at patient's floor/unit and/or counseling patient: Coding Level of Care Code 98134 Subseq Hosp Care Lvl 2 Diagnoses Diverticulitis of sigmoid colon K57.[address] scan, sigmoid colon R93.3 Dehydration E86.0 CAD (coronary artery disease) I25.10 Pulmonary HTN I27.20 COPD (chronic obstructive pulmonary disease) J44.9 Hypertension I10 Hyperlipidemia E78.5 Atrial flutter I48.92 Diabetes mellitus, type 2 E11.9 Chronic kidney disease, stage IV (severe) N18.4
--- NOTE | 2020-09-13 20:36 | Ultrasound Report ---
RENAL ULTRASOUND CLINICAL HISTORY: f/u [id number] R lesion COMPARISON STUDY: CT of the abdomen and pelvis September 12, 2020 TECHNIQUE: Sonography of the kidneys and the urinary bladder was performed. FINDINGS: Exam is compromised by suboptimal penetration. There is no hydronephrosis. The right kidney measures 9.6 cm in maximal dimension and the left measures 8.4 cm. Note is made of a 1.6 cm lesion w ithin the midpole of the right kidney which corresponds to the lesion shown on prior CT. This is circ umscribed. Internal echoes are likely artifactual. This has enhanced through transmission. This is starkey ggestive of a cyst. Kidneys are echogenic. Neither ureteral jet was identified. Bladder suboptimally assessed given underdistention. IMPRESSION: 1. 1.6 cm lesion within the midpole of the right kidney suggestive of a cyst. Exam mildly compromised by suboptimal penetration. 2. Echogenic kidneys with moderate renal cortical thinning. 3. No hydronephrosis. ACT 112: Negative or not required by law. Electronically signed by: Scottie Nova M.D. 09/13/2020 8:34 PM
[2020-09-13] MEDS: SIMVASTATIN 40 MG TAB PO SCH (20:45)
[2020-09-13] MEDS: INSULIN GLARGINE SOLOSTAR 100 UNITS/ML 3 ML PEN SC SCH (20:54)
--- NOTE | 2020-09-14 05:30 | Surgery Progress Note ---
Date of Service September 14, 2020 Assessment & Plan (1) Diverticulitis: Patient is clinically improving therefore there is no need for surgical invention at this time Patient is currently receiving antibiotics in the form of Zosyn which should continue while she is n.p.o. Plans can be put in place to transition her to oral antibiotics prior to discharge. Would recommend keeping patient n.p.o. until return of bowel function. Plans noted by GI service to perform an outpatient colonoscopy once this acute issue has resolved. Dr. Akbar-patient does have some discomfort in the left lower quadrant, she has had no nausea or vomiting and is passing flatus She has had no significant pain medication. Currently she is sitting beside the bed in stable condition Continue ice for today and then possibly clear liquids tomorrow. She should try to walk in the hallway with assistance if possible Admission and Anticipated Discharge Date Admission Date: September 12, 2020 Subjective Patient denies worsening abdominal pain. She does note that abdominal pain that was present at time of admission has improved. She denies nausea vomiting. She notes she has not had a bowel movement or is not passing any flatus. She denies fever shakes or chills. Physical Exam Constitutional: well developed and well nourished; no acute distress Respiratory: normal respiratory effort; no respiratory distress and no labored breathing Gastrointestinal (Abdomen): Percussion/Palpation: abdomen soft; abdomen nontender Results & Data ([facility] [place]) Vital Signs (Past 12 Hours) Vital Signs Temp Pulse Pulse Resp BP Pulse Ox 09/13/20 23:46 36.2 C L 62 16 130/75 96 09/13/20 20:41 64 130/75 PG Care Time/CCT Total # of Minutes Spent Total Time Spent with Patient: Total time spent is greater than 50% in c oordination of care (as documented) at patient's floor/unit and/or counseling patient: Coding Level of Care Code 22438 Subseq Hosp Care Lvl 1 Diagnoses Diverticulitis K57.92
[2020-09-14] MEDS: INSULIN ASPART 100 UNITS/ML 3 ML PEN SC SCH ×3 (05:53→18:30)
[2020-09-14] MEDS: PIPERACILLIN/TAZOBACTAM 3.375 GM in DEXTROSE 5% 100 ML IV SCH ×2 (05:53→17:37)
[2020-09-14 06:09] LABS: Basophils # (auto) 0.03 K/uL (0-0.2); Basophils % (auto) 0.3 %; Eosinophils # (auto) 0.15 K/uL (0-0.5); Eosinophils % (auto) 1.3 %; Hematocrit (blood only) 32.1 % (37-47); Hemoglobin 10.7 g/dL (12.0-16.0); Immature Granulocytes # (auto) 0.03 K/uL (0.00-0.02); Immature Granulocytes % (auto) 0.3 %; Lymphocytes % (auto) 14.3 %; Mean Corpuscular Hemoglobin 32.2 pg (25-34); Mean Corpuscular Hgb Conc 33.3 g/dL (32-36); Mean Corpuscular Volume 96.7 fL (80-100); Mean Platelet Volume 11.5 fL (7.4-10.4); Monocytes # (auto) 0.81 K/uL (0.11-0.59); Monocytes % (auto) 7.2 %; Neutrophils # (auto) 8.58 K/uL (1.4-6.5); Neutrophils % (auto) 76.6 %; Platelet Count 204 K/uL (130-400); RDW Coefficient of Variation 15.6 % (11.5-14.5); RDW Standard Deviation 54.4 fL (36.4-46.3); Red Blood Count 3.32 M/uL (4.2-5.4)
[2020-09-14 06:59] LABS: Calcium 7.7 mg/dl (8.5-10.1); Creatinine Clr Calc Pharmacy 16.5 ml/min; Est GFR (African American) 25.9; Est GFR (Non-African American) 22.3
[2020-09-14] MEDS: ACETAMINOPHEN 1,000 MG/100 ML VIAL IV PRN (07:29)
[2020-09-14] MEDS: UMECLIDINIUM BROMIDE 62.5MCG/BLISTER 7 PUFFS/INHALER INH SCH (08:10)
[2020-09-14] MEDS: carvediloL 3.125 MG TAB PO SCH ×2 (08:10→20:01)
[2020-09-14] MEDS: FLUTICASONE/VILANTEROL 100/25MCG 14 PUFFS/INHALER INH SCH (08:10)
[2020-09-14] MEDS: APIXABAN 2.5 MG TAB PO SCH ×2 (08:10→20:01)
[2020-09-14] MEDS: allopurinoL 100 MG TAB PO SCH (08:11)
[2020-09-14] MEDS: SACCHAROMYCES BOULARDII 250 MG CAP PO SCH ×2 (08:11→20:01)
[2020-09-14] MEDS: FAMOTIDINE 20 MG TAB PO SCH (08:11)
[2020-09-14] MEDS: CALCIUM CARBONATE 1250MG TAB PO SCH (08:11)
[2020-09-14] MEDS: GABAPENTIN 600 MG TAB PO SCH ×2 (08:11→20:01)
[2020-09-14] MEDS: PANTOprazole 40 MG TAB PO SCH (08:12)
--- NOTE | 2020-09-14 09:08 | Pharmacy Report ---
Pharmacy Glycemic Short Note 2 - Date of Service September 14, 2020 - Glycemic Short BSG Results (Last 24 hours): 09/13/20 09/13/20 09/13/20 12:27 17:56 20:49 Glucose POC Glucose 130 H 108 H 120 H 09/13/20 09/14/20 09/14/20 23:52 05:26 05:53 Glucose 85 POC Glucose 116 H 83 OUTPATIENT ANTIDIABETIC REGIMEN: * Toujeo 20-25 units HS, Novolog 15-20 units with meals * A1c ~7.0% ASSESSMENT: 09/14: * BSGs very well controlled yesterday without any insulin * 154, 130, 108, and 120 mg/dL * Patient remains NPO - do not anticipate any change in insulin needs until diet is advanced * Will decrease Lantus scale this evening * Continues on Zosyn for treatment of diverticulitis 09/13: * Patient admitted with diverticulitis, NPO on admission. Type 2 diabetic managed on insulin at home * Continues NPO status today, fasting BSG 145 mg/dL - received total of 7 units of insulin yesterday, of which 5 were basal * Continue with basal scale for HS / continue same CF/CR PLAN FOR INPATIENT GLYCEMIC CONTROL: * Hold outpatient oral diabetes medications * Basal insulin - adjust scale * Lantus 0-8 units SC HS (see EHR for details) * Bolus insulin - continue * NovoLog per scale ACHS or Q6hrs while NPO * Goal Range: Low 120 mg/dL - High 160 mg/dL * Correction Factor: 40 mg/dL/unit * Nutritional / Prandial insulin per carb ratio of 1 unit per 13 grams CHO consumed PLAN FOR DISCHARGE: * A1c 7% - reasonable to continue home insulin regimen on discharge as long as no contraindications are present
[2020-09-14] MEDS: SODIUM CHLORIDE 0.9% 1000ML 1,000 ML IV SCH ×2 (09:27→17:33)
--- NOTE | 2020-09-14 11:14 | Hospitalist Progress Note ---
Date of Service September 14, 2020 Assessment & Plan (1) Diverticulitis of sigmoid colon: * 85-year-old female with a history of Pulmonary Hypertension (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 Unfortunately she is experiencing worsening abdominal pain, nausea without vomiting, decreased appetite (although has eaten breakfast every morning except for today), and diffuse abdominal bloating. She denies any fevers, although she has had some chills. * Patient has had abdominal pain for the past week, and prior to that she took a course of Cipro for a suspected UTI. She initially presented to the ER on 09/08/2020 complaining of abdominal pain and constipation. Supportive treatment and advised return if symptoms persisted. She did begin moving her bowels 09/08/20 into 09/09/20, but her abdominal pain persisted. Review of her CT Scan on 09/09/20 showed finding consistent with an Acute Sigmoid Diverticulitis. She was started on Augmentin 875 mg b.i.d.. On admission she WBC elevated with a L, poor PO intake, dehydration CT Scan 09/12/2020 shows: * 1. Extensive sigmoid diverticulosis. * 2. Mild perisigmoid stranding, and a stable 24 mm hypodense sigmoid lesion. * 3. This could represent a perisigmoid inflammatory mass versus mucosal/submucosal lesion. * 4. Follow-up colonoscopy is recommended. * Conservative treatment * Continue Zosyn (on day 3) * Antiemetics * Pain control -- added tramadol prn as she had adverse reaction to morphine. Avoid Toradol in patient with CKD--> She has been tolerating pain control with Tylenol for now * IVF increased given elevation in Cr and dehydration (not initially ordered on admission) to NSS @120cc/hr * Continue NPO x ice chips/sips * General surgery on consult * --> plans for possible clear liquid diet tomorrow given +flatus 09/14 * GI on consult * --> will need f/u scope outpatient for further evaluation * --> consider EGD at that time as well given increased epigastric pain (previously on protonix and pepcid but had weaned herself off. Lipase wnl) * Added pepcid IV BID in addition to protonix previously ordered * WBC 11.2k (up from 10.6, although neutrophils decreasing), patient has been afebrile Continue to monitor labs in AM, replace electrolytes as needed (2) Abnormal CT scan, sigmoid colon: * CT Scan with mild perisigmoid stranding, and a stable 24 mm hypodense sigmoid lesion concerning for perisigmoid inflammatory mass versus mucosal/submucosal lesion. * GI on consult -- Follow-up colonoscopy is recommended (3) Dehydration: * Got 1L from ER * Placed on IVF as above given patient NPO, but increased to 120cc/hr for elevated BUN to 48, Cr 1.8 (baseline 1.5-1.7) * BMP in AM (4) CAD (coronary artery disease): * Mild non-obstructive CAD. No increased symptoms. * -- Continue Coreg 3.125 mg BID, Eliquis 2.5mg BID, Simvastatin 40mg daily * Holding telmisartan due to dehydration (5) Pulmonary HTN: * Estimated RVSP on Echocardiogram 03/05/2020 is 40 to 50 mmHg. * Normal RV systolic function. * Continue treating underlying COPD/Asthma. * Supplemental O2 qhs. * 95% on RA (6) COPD (chronic obstructive pulmonary disease): * Continue usual inhalers. * Duoneb Nebulizers as needed. * Supplemental O2 qhs. * 95% on RA (7) Hypertension: * Chronic * BP stable 114/70 * Continue Coreg 3.125 mg BID * Continue holding Telmisartan 40 mg daily given dehydration (8) Hyperlipidemia: * Simvastatin 40mg daily. Most recent lipid panel November 2018 acceptable. (9) Atrial flutter: * Rate controlled * Continue Coreg 3.125 mg BID, Eliquis 2.5mg BID (10) Diabetes mellitus, type 2: * A1c 7.0 * Pharmacy consulted for gylcemic management * BSGs acceptable * Continue to monitor (11) Chronic kidney disease, stage IV (severe): * Baseline CrCl 15-30 with baseline appearing Cr 1.[address] Gleason * Cr elevated as above to 1.98 and IVF increased as patient NPO * BMP in AM PT/OT with anticipation for return home at discharge but will continue to work with her while she is inpatient Dispo: continued inpatient stay possibly start clear liquids in AM per surgery recommendations Admission and Anticipated Discharge Date Admission Date: September 12, 2020 Supervising Physician Co-Signing Physician Notes PA Supervision Note: I did not personally see or examine the patient today, but I verified all zhao points of MAUREEN Castañeda's assessment and plan with the following exceptions/additions: None Subjective Patient evaluated this morning. Was seen by general surgery this morning. Plans for continued NPO except ice chips/meds for now and possible clear liquids tomorrow. Has been up walking, passing gas but now bowel movement yet. LLQ pain improving but does have some epigastric discomfort. Discussed duodenal edema on imaging and given her history on protonix and pepcid, will add pepcid BID IVP to see if any improvement of symptoms. She has intermittent nausea but much improved. Continues to be without emesis. No fever, chills, chest pain, dysuria at this time. Questions/concerns addressed at this time. Review of Systems Review of Systems: All systems reviewed & are unremarkable except as noted in HPI & below Physical Exam Constitutional: well developed, well nourished, cooperative and comfortable; no acute distress Eyes: + anicteric sclerae and PERRL ENMT: dry mm Neck: normal visual inspection Respiratory: normal respiratory effort, lungs clear to auscultation Cardiovascular: Rate/Rhythm: + irregularly irregular Heart Sounds: + murmur (systolic) Gastrointestinal (Abdomen): Inspection/Auscultation: + abdomen distended and normal bowel sounds Percussion/Palpation: + abdomen tender (LLQ, epigastric) and abdomen soft; no guarding and abdomen not rigid Musculoskeletal: Head/Neck/Chest: normocephalic and head atraumatic Neurologic: PERRL, EOMI, accommodation nl, no face palsy, no dysarthria Psychiatric: Orientation: alert and oriented x 3 Lymphatic: no cervical or axillary lymphadenopathy Results & Data Results & Data ([facility]) Vital Signs (Past 12 Hours) Vital Signs Temp Pulse Resp BP Pulse Ox 09/14/20 07:38 36.5 C 65 16 110/68 95 09/13/20 23:46 36.2 C L 62 16 130/75 96 Laboratory Results 09/14/20 09/14/20 09/14/20 Range/Units 12:20 05:53 05:26 WBC (4.8-10.8) K/uL RBC (4.2-5.4) M/uL Hgb (12.0-16.0) g/dL Hct (37-47) % MCV (80-100) fL MCH (25-34) pg MCHC (32-36) g/dL RDW Std Deviation (36.4-46.3) fL RDW Coeff of Terri (11.5-14.5) % Plt Count (130-400) K/uL MPV (7.4-10.4) fL Immature Gran % (Auto) % Neut % (Auto) % Lymph % (Auto) % Iron % (Auto) % Eos % (Auto) % Baso % (Auto) % Neut # (Auto) (1.4-6.5) K/uL Lymph # (Auto) (1.2-3.4) K/uL Iron # (Auto) (0.11-0.59) K/uL Eos # (Auto) (0-0.5) K/uL Baso # (Auto) (0-0.2) K/uL Immature Gran # (Auto) (0.00-0.02) K/uL Sodium (136-145) mmol/L Potassium (3.5-5.1) mmol/L Chloride (98-107) mmol/L Carbon Dioxide (21-32) mmol/L Anion Gap (3-11) BUN (7-18) mg/dl Creatinine (0.6-1.2) mg/dl Est Cr Clr Drug Dosing ml/min Est GFR ( Amer) Est GFR (Non-Af Amer) BUN/Creatinine Ratio (10-20) Glucose (70-99) mg/dl POC Glucose 99 83 (70-99) mg/dl Calcium (8.5-10.1) mg/dl Troponin I (0-0.045) ng/ml Lipase 321 (73-393) U/L 09/14/20 09/14/20 09/13/20 Range/Units 05:26 05:26 23:52 WBC 11.20 H (4.8-10.8) K/uL RBC 3.32 L (4.2-5.4) M/uL Hgb 10.7 L (12.0-16.0) g/dL Hct 32.1 L (37-47) % MCV 96.7 (80-100) fL MCH 32.2 (25-34) pg MCHC 33.3 (32-36) g/dL RDW Std Deviation 54.4 H (36.4-46.3) fL RDW Coeff of Terri 15.6 H (11.5-14.5) % Plt Count 204 (130-400) K/uL MPV 11.5 H (7.4-10.4) fL Immature Gran % (Auto) 0.3 % Neut % (Auto) 76.6 % Lymph % (Auto) 14.3 % Iron % (Auto) 7.2 % Eos % (Auto) 1.3 % Baso % (Auto) 0.3 % Neut # (Auto) 8.58 H (1.4-6.5) K/uL Lymph # (Auto) 1.60 (1.2-3.4) K/uL Iron # (Auto) 0.81 H (0.11-0.59) K/uL Eos # (Auto) 0.15 (0-0.5) K/uL Baso # (Auto) 0.03 (0-0.2) K/uL Immature Gran # (Auto) 0.03 H (0.00-0.02) K/uL Sodium 141 (136-145) mmol/L Potassium 4.0 (3.5-5.1) mmol/L Chloride 113 H (98-107) mmol/L Carbon Dioxide 21 (21-32) mmol/L Anion Gap 7.0 (3-11) BUN 48 H (7-18) mg/dl Creatinine 1.98 H (0.6-1.2) mg/dl Est Cr Clr Drug Dosing 16.5 ml/min Est GFR ( Amer) 25.9 Est GFR (Non-Af Amer) 22.3 BUN/Creatinine Ratio 24.0 H (10-20) Glucose 85 (70-99) mg/dl POC Glucose 116 H (70-99) mg/dl Calcium 7.7 L (8.5-10.1) mg/dl Troponin I (0-0.045) ng/ml Lipase (73-393) U/L 09/13/20 09/13/20 09/13/20 Range/Units 20:49 20:44 17:56 WBC (4.8-10.8) K/uL RBC (4.2-5.4) M/uL Hgb (12.0-16.0) g/dL Hct (37-47) % MCV (80-100) fL MCH (25-34) pg MCHC (32-36) g/dL RDW Std Deviation (36.4-46.3) fL RDW Coeff of Terri (11.5-14.5) % Plt Count (130-400) K/uL MPV (7.4-10.4) fL Immature Gran % (Auto) % Neut % (Auto) % Lymph % (Auto) % Iron % (Auto) % Eos % (Auto) % Baso % (Auto) % Neut # (Auto) (1.4-6.5) K/uL Lymph # (Auto) (1.2-3.4) K/uL Iron # (Auto) (0.11-0.59) K/uL Eos # (Auto) (0-0.5) K/uL Baso # (Auto) (0-0.2) K/uL Immature Gran # (Auto) (0.00-0.02) K/uL Sodium (136-145) mmol/L Potassium (3.5-5.1) mmol/L Chloride (98-107) mmol/L Carbon Dioxide (21-32) mmol/L Anion Gap (3-11) BUN (7-18) mg/dl Creatinine (0.6-1.2) mg/dl Est Cr Clr Drug Dosing ml/min Est GFR ( Amer) Est GFR (Non-Af Amer) BUN/Creatinine Ratio (10-20) Glucose (70-99) mg/dl POC Glucose 120 H 108 H (70-99) mg/dl Calcium (8.5-10.1) mg/dl Troponin I 0.036 (0-0.045) ng/ml Lipase (73-393) U/L PG Care Time/CCT Total # of Minutes Spent Total Time Spent with Patient: Total time spent is greater than 50% in coordination of care (as documented) at patient's floor/unit and/or counseling patient: Coding Level of Care Code 12234 Subseq Hosp Care Lvl 2 Diagnoses Diverticulitis of sigmoid colon K57.[address] scan, sigmoid colon R93.3 Dehydration E86.0 CAD (coronary artery disease) I25.10 Pulmonary HTN I27.20 COPD (chronic obstructive pulmonary disease) J44.9 Hypertension I10 Hyperlipidemia E78.5 Atrial flutter I48.92 Diabetes mellitus, type 2 E11.9 Chronic kidney disease, stage IV (severe) N18.4
[2020-09-14] MEDS: SIMVASTATIN 40 MG TAB PO SCH (20:01)
[2020-09-14] MEDS: FAMOTIDINE 20 MG in SYRINGE 3 ML IV SCH (20:06)
[2020-09-14] MEDS: ACETAMINOPHEN 500 MG TAB PO PRN (20:06)
[2020-09-14] MEDS: INSULIN GLARGINE SOLOSTAR 100 UNITS/ML 3 ML PEN SC SCH (21:23)
[2020-09-15] MEDS: SODIUM CHLORIDE 0.9% 1000ML 1,000 ML IV SCH (01:59)
[2020-09-15] MEDS: INSULIN ASPART 100 UNITS/ML 3 ML PEN SC SCH ×5 (06:16→21:06)
[2020-09-15] MEDS: PIPERACILLIN/TAZOBACTAM 3.375 GM in DEXTROSE 5% 100 ML IV SCH ×2 (06:21→17:40)
--- NOTE | 2020-09-15 06:30 | Surgery Progress Note ---
Date of Service September 15, 2020 Assessment & Plan (1) Diverticulitis: Currently no need for surgical intervention. We will consider allowing clear liquids today Continue antibiotics as ordered Dr. Akbarpatient appears to be stable, planing of some mild upper abdominal discomfort Her bowels are moving. We will try some clear liquids. She is not taking much chronic pain medication Continue IV antibiotics and supportive care Admission and Anticipated Discharge Date Admission Date: September 12, 2020 Subjective Patient denies nausea or vomiting. She notes her bowel function has returned. She notes some minor abdominal tenderness. No fevers, shakes, chills. Physical Exam Respiratory: normal respiratory effort; no respiratory distress and no labored breathing Gastrointestinal (Abdomen): Percussion/Palpation: + abdomen tender (Minimal tenderness with palpation in the left lower quadrant) and abdomen soft Results & Data ([facility]) Vital Signs (Past 12 Hours) Vital Signs Temp Pulse Resp BP Pulse Ox 09/14/20 23:46 36.2 C L 60 16 132/74 98 PG Care Time/CCT Total # of Minutes Spent Total Time Spent with Patient: Total time spent is greater than 50% in coordination of care (as documented) at patient's floor/unit and/or counseling patient: Coding Level of Care Code 63800 Subseq Hosp Care Lvl 1 Diagnoses Diverticulitis K57.92
[2020-09-15 07:26] LABS: Basophils # (auto) 0.03 K/uL (0-0.2); Basophils % (auto) 0.3 %; Eosinophils # (auto) 0.18 K/uL (0-0.5); Eosinophils % (auto) 1.7 %; Hematocrit (blood only) 35.4 % (37-47); Hemoglobin 11.5 g/dL (12.0-16.0); Immature Granulocytes # (auto) 0.03 K/uL (0.00-0.02); Immature Granulocytes % (auto) 0.3 %; Lymphocytes # (auto) 1.58 K/uL (1.2-3.4); Lymphocytes % (auto) 15.1 %; Mean Corpuscular Hemoglobin 31.9 pg (25-34); Mean Corpuscular Hgb Conc 32.5 g/dL (32-36); Mean Corpuscular Volume 98.3 fL (80-100); Mean Platelet Volume 10.8 fL (7.4-10.4); Monocytes # (auto) 0.82 K/uL (0.11-0.59); Monocytes % (auto) 7.9 %; Neutrophils # (auto) 7.79 K/uL (1.4-6.5); Neutrophils % (auto) 74.7 %; Platelet Count 170 K/uL (130-400); RDW Coefficient of Variation 15.7 % (11.5-14.5); RDW Standard Deviation 56.6 fL (36.4-46.3); White Blood Count 10.43 K/uL (4.8-10.8)
[2020-09-15] MEDS: ACETAMINOPHEN 1,000 MG/100 ML VIAL IV PRN (07:30)
[2020-09-15 08:03] LABS: BUN Creatinine Ratio 21.7 (10-20); Calcium 7.4 mg/dl (8.5-10.1); Creatinine Clr Calc Pharmacy 16.4 ml/min; Est GFR (African American) 25.7; Est GFR (Non-African American) 22.2; Magnesium 2.4 mg/dl (1.8-2.4); Potassium 3.7 mmol/L (3.5-5.1)
[2020-09-15] MEDS: CALCIUM CARBONATE 1250MG TAB PO SCH (08:06)
[2020-09-15] MEDS: carvediloL 3.125 MG TAB PO SCH ×2 (08:06→21:04)
[2020-09-15] MEDS: FLUTICASONE/VILANTEROL 100/25MCG 14 PUFFS/INHALER INH SCH (08:06)
[2020-09-15] MEDS: UMECLIDINIUM BROMIDE 62.5MCG/BLISTER 7 PUFFS/INHALER INH SCH (08:06)
[2020-09-15] MEDS: PANTOprazole 40 MG TAB PO SCH (08:07)
[2020-09-15] MEDS: allopurinoL 100 MG TAB PO SCH (08:07)
[2020-09-15] MEDS: GABAPENTIN 600 MG TAB PO SCH ×2 (08:08→21:03)
[2020-09-15] MEDS: SACCHAROMYCES BOULARDII 250 MG CAP PO SCH ×2 (08:08→21:04)
[2020-09-15] MEDS: FAMOTIDINE 20 MG in SYRINGE 3 ML IV SCH ×2 (08:08→21:12)
[2020-09-15] MEDS: APIXABAN 2.5 MG TAB PO SCH ×2 (08:08→21:04)
[2020-09-15] MEDS: SODIUM CHLORIDE 0.45 % 1,000 ML IV SCH ×2 (08:41→21:01)
--- NOTE | 2020-09-15 09:13 | Hospitalist Progress Note ---
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 Unfortunately she is experiencing worsening abdominal pain, nausea without vomiting, decreased appetite (although has eaten breakfast every morning except for today), and diffuse abdominal bloating. She denies any fevers, although she has had some chills. * Patient has had abdominal pain for the past week, and prior to that she took a course of Cipro for a suspected UTI. She initially presented to the ER on 09/08/2020 complaining of abdominal pain and constipation. Supportive treatment and advised return if symptoms persisted. She did begin moving her bowels 09/08/20 into 09/09/20, but her abdominal pain persisted. Review of her CT Scan on 09/09/20 showed finding consistent with an Acute Sigmoid Diverticulitis. She was started on Augmentin 875 mg b.i.d.. On admission she WBC elevated with a L, poor PO intake, dehydration CT Scan 09/12/2020 shows: * 1. Extensive sigmoid diverticulosis. * 2. Mild perisigmoid stranding, and a stable 24 mm hypodense sigmoid lesion. * 3. This could represent a perisigmoid inflammatory mass versus mucosal/submucosal lesion. * 4. Follow-up colonoscopy is recommended. Conservative treatment * Continue Zosyn (on day 4) * Antiemetics * Pain control -- added tramadol prn as she had adverse reaction to morphine. Avoid Toradol in patient with CKD--> She has been tolerating pain control with Tylenol for now * IVF increased given elevation in Cr and dehydration (not initially ordered on admission) to NSS @120cc/hr * Continue NPO x ice chips/sips * General surgery on consult * --> +BM and giving patient clear liquids for today. will need advanced slowly and patient will need educated on low fiber diet at discharge * --> Of note, she is very hesitant about going home before medically ready and will need continued encouragement and reassurance * GI on consult * --> will need f/u scope outpatient for further evaluation * --> consider EGD at that time as well given increased epigastric pain (previously on protonix and pepcid but had weaned herself off. Lipase wnl) * Added pepcid IV BID in addition to protonix previously ordered * WBC wnl now at 10.43k, continues to be afebrile Continue to monitor labs in AM, replace electrolytes as needed --> Bicarb low at 18 today. ordered tums --> changed IVF to 1/2NSS --> BUN/Cr improving however Cr still elevated at 1.99. Continue to monitor (baseline 1.5-1.7). Will hold PPI and continue with famotidine BID IVP --> Consider reaching back out to GI for further investigation of upper epigastric discomfort and reflux given history of PPI/H2 but had been discontinued. Rec for EGD at same time as c-scope given patients issues with anesthesia and underlying pulm HTN (follows with Dr. Little) --> Reported diarrhea, multiple bouts, yellow in color. As on abx, will check cdiff to make sure no further treatment needed (2) Abnormal CT scan, sigmoid colon: * CT Scan with mild perisigmoid stranding, and a stable 24 mm hypodense sigmoid lesion concerning for perisigmoid inflammatory mass versus mucosal/submucosal lesion. * GI on consult -- Follow-up colonoscopy is recommended (3) Dehydration: * Got 1L from ER * Placed on IVF 09/13 as above given patient NPO, but increased to 120cc/hr for elevated BUN to 48, Cr 1.8 (baseline 1.5-1.7) * Changed to 1/2NS as she is eating today and will decrease rate to 80cc/hr encourage PO * BMP in AM (4) CAD (coronary artery disease): * Mild non-obstructive CAD. No increased symptoms. * -- Continue Coreg 3.125 mg BID, Eliquis 2.5mg BID, Simvastatin 40mg daily * Holding telmisartan due to dehydration (5) Pulmonary HTN: * Estimated RVSP on Echocardiogram 03/05/2020 is 40 to [address] Little * Normal RV systolic function. * Continue treating underlying COPD/Asthma. * Supplemental O2 qhs. * 96% on RA (6) COPD (chronic obstructive pulmonary disease): * Continue usual inhalers. * Duoneb Nebulizers as needed. * Supplemental O2 qhs. * 96% on RA (7) Hypertension: * Chronic * BP stable 134/76 * Continue Coreg 3.125 mg BID * Continue holding Telmisartan 40 mg daily given dehydration and elevated Cr (8) Hyperlipidemia: * Simvastatin 40mg daily. Most recent lipid panel November 2018 acceptable. (9) Atrial flutter: * Rate controlled * Continue Coreg 3.125 mg BID, Eliquis 2.5mg BID (10) Diabetes mellitus, type 2: * A1c 7.0 * Pharmacy consulted for gylcemic management * BSGs acceptable * Continue to monitor (11) Chronic kidney disease, stage IV (severe): * Baseline CrCl 15-30 with baseline appearing Cr 1.5 to 1.[address] Follows with Dr. Gleason * Cr elevated as above to 1.99 and changes as above * PPI discontinued for now and continue with pepcid IV BID * BMP in AM PT/OT with anticipation for return home at discharge but will continue to work with her while she is inpatient Dispo: continued inpatient stay advance diet slowly Admission and Anticipated Discharge Date Admission Date: September 12, 2020 Supervising Physician Co-Signing Physician Notes PA Supervision Note: I did not personally see or examine the patient today, but I verified all zhao points of MAUREEN Castañeda's assessment and plan with the following exceptions/additions: None Subjective Patient evaluated this morning. Feeling ok. Worked and walked with therapy yesterday and states she was told they will continue while she is in the hospital. Abdominal pain controlled with tylenol. Does have some indigestion and epigastric discomfort. Will take Tums. Multiple BMs, liquid. Noted some bright red blood on toilet paper but believes from hemorrhoids. Discussed alerting nursing if this worsens. Tolerated liquids for breakfast this morning without reported increase in abdominal pain. Yellow stool in color. Talked about checking for cdiff or alerting if BMs increase in frequency/foul smelling. No fever, chills, chest pain, shortness of breath. Review of Systems Review of Systems: All systems reviewed & are unremarkable except as noted in HPI & below Physical Exam Constitutional: well developed, well nourished, cooperative and comfortable; no acute distress Eyes: + anicteric sclerae and PERRL Neck: normal visual inspection Respiratory: normal respiratory effort, lungs clear to auscultation Cardiovascular: Rate/Rhythm: + irregularly irregular Heart Sounds: + murmur (systolic) Gastrointestinal (Abdomen): Inspection/Auscultation: + abdomen distended (less) and normal bowel sounds Percussion/Palpation: + abdomen tender (LLQ, epigastric) and abdomen soft; no guarding and abdomen not rigid Musculoskeletal: Head/Neck/Chest: normocephalic and head atraumatic Neurologic: PERRL, EOMI, accommodation nl, no face palsy, no dysarthria Psychiatric: Orientation: alert and oriented x 3 Lymphatic: no cervical or axillary lymphadenopathy Results & Data Results & Data ([facility]) Vital Signs (Past 12 Hours) Vital Signs Temp Pulse Pulse Resp BP Pulse Ox 09/15/20 07:23 36.2 C L 71 16 134/76 96 09/14/20 23:46 36.2 C L 60 16 132/74 98 Laboratory Results 09/15/20 09/15/20 09/15/20 Range/Units 12:07 07:10 07:10 WBC 10.43 (4.8-10.8) K/uL RBC 3.60 L (4.2-5.4) M/uL Hgb 11.5 L (12.0-16.0) g/dL Hct 35.4 L (37-47) % MCV 98.3 (80-100) fL MCH 31.9 (25-34) pg MCHC 32.5 (32-36) g/dL RDW Std Deviation 56.6 H (36.4-46.3) fL RDW Coeff of Terri 15.7 H (11.5-14.5) % Plt Count 170 (130-400) K/uL MPV 10.8 H (7.4-10.4) fL Immature Gran % (Auto) 0.3 % Neut % (Auto) 74.7 % Lymph % (Auto) 15.1 % Meagher % (Auto) 7.9 % Eos % (Auto) 1.7 % Baso % (Auto) 0.3 % Neut # (Auto) 7.79 H (1.4-6.5) K/uL Lymph # (Auto) 1.58 (1.2-3.4) K/uL Meagher # (Auto) 0.82 H (0.11-0.59) K/uL Eos # (Auto) 0.18 (0-0.5) K/uL Baso # (Auto) 0.03 (0-0.2) K/uL Immature Gran # (Auto) 0.03 H (0.00-0.02) K/uL Sodium 144 (136-145) mmol/L Potassium 3.7 (3.5-5.1) mmol/L Chloride 117 H (98-107) mmol/L Carbon Dioxide 18 L (21-32) mmol/L Anion Gap 10.0 (3-11) BUN 43 H (7-18) mg/dl Creatinine 1.99 H (0.6-1.2) mg/dl Est Cr Clr Drug Dosing 16.4 ml/min Est GFR ( Amer) 25.7 Est GFR (Non-Af Amer) 22.2 BUN/Creatinine Ratio 21.7 H (10-20) Glucose 69 L (70-99) mg/dl POC Glucose 143 H (70-99) mg/dl Calcium 7.4 L (8.5-10.1) mg/dl Magnesium 2.4 (1.8-2.4) mg/dl 09/15/20 09/14/20 09/14/20 Range/Units 05:57 23:48 22:16 WBC (4.8-10.8) K/uL RBC (4.2-5.4) M/uL Hgb (12.0-16.0) g/dL Hct (37-47) % MCV (80-100) fL MCH (25-34) pg MCHC (32-36) g/dL RDW Std Deviation (36.4-46.3) fL RDW Coeff of Terri (11.5-14.5) % Plt Count (130-400) K/uL MPV (7.4-10.4) fL Immature Gran % (Auto) % Neut % (Auto) % Lymph % (Auto) % Meagher % (Auto) % Eos % (Auto) % Baso % (Auto) % Neut # (Auto) (1.4-6.5) K/uL Lymph # (Auto) (1.2-3.4) K/uL Meagher # (Auto) (0.11-0.59) K/uL Eos # (Auto) (0-0.5) K/uL Baso # (Auto) (0-0.2) K/uL Immature Gran # (Auto) (0.00-0.02) K/uL Sodium (136-145) mmol/L Potassium (3.5-5.1) mmol/L Chloride (98-107) mmol/L Carbon Dioxide (21-32) mmol/L Anion Gap (3-11) BUN (7-18) mg/dl Creatinine (0.6-1.2) mg/dl Est Cr Clr Drug Dosing ml/min Est GFR ( Amer) Est GFR (Non-Af Amer) BUN/Creatinine Ratio (10-20) Glucose (70-99) mg/dl POC Glucose 70 88 96 (70-99) mg/dl Calcium (8.5-10.1) mg/dl Magnesium (1.8-2.4) mg/dl 09/14/20 Range/Units 17:52 WBC (4.8-10.8) K/uL RBC (4.2-5.4) M/uL Hgb (12.0-16.0) g/dL Hct (37-47) % MCV (80-100) fL MCH (25-34) pg MCHC (32-36) g/dL RDW Std Deviation (36.4-46.3) fL RDW Coeff of Terri (11.5-14.5) % Plt Count (130-400) K/uL MPV (7.4-10.4) fL Immature Gran % (Auto) % Neut % (Auto) % Lymph % (Auto) % Meagher % (Auto) % Eos % (Auto) % Baso % (Auto) % Neut # (Auto) (1.4-6.5) K/uL Lymph # (Auto) (1.2-3.4) K/uL Meagher # (Auto) (0.11-0.59) K/uL Eos # (Auto) (0-0.5) K/uL Baso # (Auto) (0-0.2) K/uL Immature Gran # (Auto) (0.00-0.02) K/uL Sodium (136-145) mmol/L Potassium (3.5-5.1) mmol/L Chloride (98-107) mmol/L Carbon Dioxide (21-32) mmol/L Anion Gap (3-11) BUN (7-18) mg/dl Creatinine (0.6-1.2) mg/dl Est Cr Clr Drug Dosing ml/min Est GFR ( Amer) Est GFR (Non-Af Amer) BUN/Creatinine Ratio (10-20) Glucose (70-99) mg/dl POC Glucose 101 H (70-99) mg/dl Calcium (8.5-10.1) mg/dl Magnesium (1.8-2.4) mg/dl PG Care Time/CCT Total # of Minutes Spent Total Time Spent with Patient: Total time spent is greater than 50% in coordination of care (as documented) at patient's floor/unit and/or counseling patient: Coding Level of Care Code 73145 Subseq Hosp Care Lvl 2 Diagnoses Diverticulitis of sigmoid colon K57.[address] scan, sigmoid colon R93.3 Dehydration E86.0 CAD (coronary artery disease) I25.10 Pulmonary HTN I27.20 COPD (chronic obstructive pulmonary disease) J44.9 Hypertension I10 Hyperlipidemia E78.5 Atrial flutter I48.92 Diabetes mellitus, type 2 E11.9 Chronic kidney disease, stage IV (severe) N18.4
[2020-09-15] MEDS ORDERED: Nursing to Pharmacy Communication SCH (09:15)
[2020-09-15] MEDS ORDERED: CALCIUM CARBONATE 500 MG CHEWABLE TAB PO PRN (11:06)
[2020-09-15] MEDS ORDERED: CALCIUM CARBONATE 500 MG CHEWABLE TAB PO ONE (11:06)
--- NOTE | 2020-09-15 13:15 | Pharmacy Report ---
Pharmacy Glycemic Short Note 2 - Date of Service September 15, 2020 - Glycemic Short BSG Results (Last 24 hours): 09/14/20 09/14/20 09/14/20 17:52 22:16 23:48 Glucose POC Glucose 101 H 96 88 09/15/20 09/15/20 09/15/20 05:57 07:10 12:07 Glucose 69 L POC Glucose 70 143 H OUTPATIENT ANTIDIABETIC REGIMEN: * Toujeo 20-25 units HS, Novolog 15-20 units with meals * A1c ~7.0% ASSESSMENT: 09/15: * Patient has not required any insulin over past 48 hours * Patient had been NPO during this time, but diet advanced to clear liquid today * Continues on Zosyn for treatment of diverticulitis * Anticipating increase in insulin needs now that patient is ordered a diet - will maintain low-dose Lantus scale this evening 09/13: * Patient admitted with diverticulitis, NPO on admission. Type 2 diabetic managed on insulin at home * Continues NPO status today, fasting BSG 145 mg/dL - received total of 7 units of insulin yesterday, of which 5 were basal * Continue with basal scale for HS / continue same CF/CR PLAN FOR INPATIENT GLYCEMIC CONTROL: * Hold outpatient oral diabetes medications * Basal insulin - adjust scale * Lantus 0-10 units SC HS (see EHR for details) * Bolus insulin - continue * NovoLog per scale ACHS or Q6hrs while NPO * Goal Range: Low 120 mg/dL - High 160 mg/dL * Correction Factor: 40 mg/dL/unit * Nutritional / Prandial insulin per carb ratio of 1 unit per 13 grams CHO consumed PLAN FOR DISCHARGE: * A1c 7% - reasonable to continue home insulin regimen on discharge as long as no contraindications are present
[2020-09-15] MEDS: INSULIN GLARGINE SOLOSTAR 100 UNITS/ML 3 ML PEN SC SCH (21:05)
[2020-09-15] MEDS: SIMVASTATIN 40 MG TAB PO SCH (21:05)
[2020-09-15] MEDS ORDERED: LOPERAMIDE HCL 2 MG CAP PO STA (22:05)
[2020-09-15] MEDS ORDERED: LOPERAMIDE HCL 2 MG CAP PO PRN (22:06)
[2020-09-16] MEDS: PIPERACILLIN/TAZOBACTAM 3.375 GM in DEXTROSE 5% 100 ML IV SCH ×2 (04:59→17:32)
[2020-09-16 06:59] LABS: Albumin Globulin Ratio 0.9 (0.9-2); Albumin Level 3.1 gm/dl (3.4-5.0); BUN Creatinine Ratio 18.4 (10-20); Bilirubin,Total 0.6 mg/dl (0.2-1); Calcium 7.3 mg/dl (8.5-10.1); Creatinine Clr Calc Pharmacy 18.4 ml/min; Est GFR (African American) 29.6; Est GFR (Non-African American) 25.6; Globulin 3.3 gm/dl (2.5-4.0); Potassium 3.8 mmol/L (3.5-5.1); Total Protein 6.4 gm/dl (6.4-8.2)
[2020-09-16] MEDS: SODIUM CHLORIDE 0.45 % 1,000 ML IV SCH (08:04)
[2020-09-16] MEDS: UMECLIDINIUM BROMIDE 62.5MCG/BLISTER 7 PUFFS/INHALER INH SCH (08:51)
[2020-09-16] MEDS: GABAPENTIN 600 MG TAB PO SCH ×2 (08:51→21:43)
[2020-09-16] MEDS: FLUTICASONE/VILANTEROL 100/25MCG 14 PUFFS/INHALER INH SCH (08:51)
[2020-09-16] MEDS: allopurinoL 100 MG TAB PO SCH (08:51)
[2020-09-16] MEDS: CALCIUM CARBONATE 1250MG TAB PO SCH (08:51)
[2020-09-16] MEDS: APIXABAN 2.5 MG TAB PO SCH ×2 (08:51→21:43)
[2020-09-16] MEDS: carvediloL 3.125 MG TAB PO SCH ×2 (08:51→21:43)
[2020-09-16] MEDS: SACCHAROMYCES BOULARDII 250 MG CAP PO SCH ×2 (08:51→21:43)
[2020-09-16] MEDS: INSULIN ASPART 100 UNITS/ML 3 ML PEN SC SCH ×4 (08:52→21:58)
[2020-09-16] MEDS: FAMOTIDINE 20 MG in SYRINGE 3 ML IV SCH ×2 (08:54→21:54)
[2020-09-16] MEDS: ADVANCED PROBIOTIC 1250 MG CAPSULE PO SCH (10:19)
--- NOTE | 2020-09-16 10:43 | Surgery Progress Note ---
Date of Service September 16, 2020 Assessment & Plan (1) Diverticulitis: Clinically improving slowly. Would continue with IV antibiotics. C. difficile was negative. Has less pain and tenderness. Most of her pain is upper abdomen. No peritonitis. No indication for surgical intervention at this time. Admission and Anticipated Discharge Date Admission Date: September 12, 2020 Subjective Patient sitting in chair comfortably. Had no pain yesterday but has developed some intermittent discomfort in the upper abdomen that she describes as crampy Left lower quadrant pain is resolved Denies nausea and vomiting Tolerating clear liquids Had liquid bowel movements. C. difficile was negative. Physical Exam Gastrointestinal (Abdomen): Inspection/Auscultation: normal bowel sounds; abdomen not distended Percussion/Palpation: + abdomen tender (Mild upper abdominal tenderness) and abdomen soft Results & Data ([facility]) Vital Signs (Past 12 Hours) Vital Signs Temp Pulse Resp BP Pulse Ox 09/16/20 07:29 36.3 C L 60 16 141/75 H 94 09/15/20 23:11 36.2 C L 57 L 16 167/77 H 95 Laboratory Results 09/16/20 09/16/20 09/15/20 Range/Units 08:11 05:45 20:35 Sodium 141 (136-145) mmol/L Potassium 3.8 (3.5-5.1) mmol/L Chloride 113 H (98-107) mmol/L Carbon Dioxide 21 (21-32) mmol/L Anion Gap 7.0 (3-11) BUN 33 H (7-18) mg/dl Creatinine 1.77 H (0.6-1.2) mg/dl Est Cr Clr Drug Dosing 18.4 ml/min Est GFR ( Amer) 29.6 Est GFR (Non-Af Amer) 25.6 BUN/Creatinine Ratio 18.4 (10-20) Glucose 100 H (70-99) mg/dl POC Glucose 118 H 167 H (70-99) mg/dl Calcium 7.3 L (8.5-10.1) mg/dl Total Bilirubin 0.6 (0.2-1) mg/dl AST 24 (15-37) U/L ALT 31 (12-78) U/L Alkaline Phosphatase 53 (45-117) U/L Total Protein 6.4 (6.4-8.2) gm/dl Albumin 3.1 L (3.4-5.0) gm/dl Globulin 3.3 (2.5-4.0) gm/dl Albumin/Globulin Ratio 0.9 (0.9-2) Stl C. diff Tox B Gene (Neg) 09/15/20 09/15/20 09/15/20 Range/Units 18:40 17:15 12:07 Sodium (136-145) mmol/L Potassium (3.5-5.1) mmol/L Chloride (98-107) mmol/L Carbon Dioxide (21-32) mmol/L Anion Gap (3-11) BUN (7-18) mg/dl Creatinine (0.6-1.2) mg/dl Est Cr Clr Drug Dosing ml/min Est GFR ( Amer) Est GFR (Non-Af Amer) BUN/Creatinine Ratio (10-20) Glucose (70-99) mg/dl POC Glucose 131 H 143 H (70-99) mg/dl Calcium (8.5-10.1) mg/dl Total Bilirubin (0.2-1) mg/dl AST (15-37) U/L ALT (12-78) U/L Alkaline Phosphatase (45-117) U/L Total Protein (6.4-8.2) gm/dl Albumin (3.4-5.0) gm/dl Globulin (2.5-4.0) gm/dl Albumin/Globulin Ratio (0.9-2) Stl C. diff Tox B Gene Negative Cdiff Gene (Neg)
[2020-09-16] MEDS: ACETAMINOPHEN 500 MG TAB PO PRN (14:36)
--- NOTE | 2020-09-16 14:39 | Hospitalist Progress Note ---
Date of Service September 16, 2020 Assessment & Plan (1) Diverticulitis of sigmoid colon: Improving clinically. Stop IVF due to concern of mild volume overload. Cont IV zosyn. Gen surg assistance appreciated. Tolerating clears. Upper abdominal pain unlikely to be from sigmoid colon - see below. Will need colonoscopy in 6-8 weeks as outpatient. (2) Duodenitis: Recent CT with duodenitis. This may be cause of upper abdominal pain. PUD? Other? Lipase wnl thus pancreatitis causing duodenal irritation unlikely. Cont IV H2 ree. Add carafate. PPI x 1 now. Strongly consider EGD at time of colonoscopy. (3) Abnormal CT scan, sigmoid colon: 24 mm hypodense sigmoid lesion concerning for perisigmoid inflammatory mass versus mucosal/submucosal lesion. Needs colonoscopy after resolution of diverticulitis. (4) Dehydration: Resolved. stop fluids. (5) CAD (coronary artery disease): Mild non-obstructive CAD. I do not believe upper abd pain is referred cardiac pain - pain is reproducible in the high abdomen. Cont Coreg 3.125 mg BID, Eliquis 2.5mg BID, Simvastatin. (6) Pulmonary HTN: Estimated RVSP on Echocardiogram 03/05/2020 is 40 to [address] Little Normal RV systolic function. Continue treating underlying COPD/Asthma. Supplemental O2 qhs. Sats wnl in room air at rest. (7) COPD (chronic obstructive pulmonary disease): Without exacerbation. Cont usual inhalers. (8) Hypertension: Cont coreg. Holding ARB. (9) Hyperlipidemia: Cont Simvastatin 40mg daily. (10) Atrial flutter: a flutter/fib cont coreg cont eliquis rates acceptable (11) Diabetes mellitus, type 2: Most recent A1c 7.0%. Appreciate pharmacy glycemic recommendations. Good control. (12) Chronic kidney disease, stage IV (severe): Baseline Cr 1.5 to 1.7. Follows with Dr. Gleason. Cr in am. Cr has been stable. (13) Pulmonary edema: Iatrogenic due to IVF in setting of advanced CKD. Stop IVF. Lasix 20mg IV x 1. re-eval tomorrow. (14) DVT prophylaxis: eliquis BID daughter updated by phone progressing PT, OT Admission and Anticipated Discharge Date Admission Date: September 12, 2020 Subjective pt c/o - 1. diarrhea - several loose BMs 2. mild MEYER - worse than baseline abd pain is improved in LLQ but still remains in upper abdomen - the upper abdominal pain started after LLQ recently tolerating clears no vomiting Review of Systems Constitutional: no fever and no chills Respiratory: no cough Cardiovascular: no chest pain Physical Exam Constitutional: well developed and well nourished; no acute distress and no altered mental status looks good; sitting in chair ENMT: external ear and nose normal, oropharynx normal Respiratory: no respiratory distress Auscultation: + rales (soft, fine, bases only); no wheezes Cardiovascular: Rate/Rhythm: regular rate and + irregularly irregular Heart Sounds: normal S1 and normal S2; no murmur Vessels: + JVD, posterior tibial pulses present and dorsalis pedis pulses present Extremities: + edema (<1+ b/l) Gastrointestinal (Abdomen): Inspection/Auscultation: normal bowel sounds Percussion/Palpation: + abdomen tender (epigastric area) and abdomen soft; no guarding and no hepatosplenomegaly Psychiatric: A+Ox3, euthymic affect Results & Data Results & Data ([facility]) Vital Signs (Past 12 Hours) Vital Signs Temp Pulse Resp BP Pulse Ox 09/16/20 07:29 36.3 C L 60 16 141/75 H 94 Laboratory Results Laboratory Results - last 24 hr 09/15/20 09/15/20 09/15/20 17:15 18:40 20:35 Sodium Potassium Chloride Carbon Dioxide Anion Gap BUN Creatinine Est Cr Clr Drug Dosing Est GFR ( Amer) Est GFR (Non-Af Amer) BUN/Creatinine Ratio Glucose POC Glucose 131 H 167 H Calcium Total Bilirubin AST ALT Alkaline Phosphatase Total Protein Albumin Globulin Albumin/Globulin Ratio Stl C. diff Tox B Gene Negative Cdiff Gene 09/16/20 09/16/20 09/16/20 05:45 08:11 12:02 Sodium 141 Potassium 3.8 Chloride 113 H Carbon Dioxide 21 Anion Gap 7.0 BUN 33 H Creatinine 1.77 H Est Cr Clr Drug Dosing 18.4 Est GFR ( Amer) 29.6 Est GFR (Non-Af Amer) 25.6 BUN/Creatinine Ratio 18.4 Glucose 100 H POC Glucose 118 H 138 H Calcium 7.3 L Total Bilirubin 0.6 AST 24 ALT 31 Alkaline Phosphatase 53 Total Protein 6.4 Albumin 3.1 L Globulin 3.3 Albumin/Globulin Ratio 0.9 Stl C. diff Tox B Gene PG Care Time/CCT Total # of Minutes Spent Total Time Spent with Patient: Total time spent is greater than 50% in coordination of care (as documented) at patient's floor/unit and/or counseling patient: Coding Level of Care Code 94810 Subseq Hosp Care Lvl 2 Diagnoses Diverticulitis of sigmoid colon K57.[address] scan, sigmoid colon R93.3 Dehydration E86.0 CAD (coronary artery disease) I25.10 Pulmonary HTN I27.20 COPD (chronic obstructive pulmonary disease) J44.9 Hypertension I10 Hyperlipidemia E78.5 Atrial flutter I48.92 Diabetes mellitus, type 2 E11.9 Chronic kidney disease, stage IV (severe) N18.4 Pulmonary edema J81.1 DVT prophylaxis Z29.9
[2020-09-16] MEDS ORDERED: FUROSEMIDE 20 MG in SYRINGE 0 ML IV ONE (15:00)
[2020-09-16] MEDS ORDERED: POTASSIUM CHLORIDE 10 MEQ TABCR PO ONE (15:00)
[2020-09-16] MEDS ORDERED: PANTOprazole 40 MG TAB PO ONE (21:00)
[2020-09-16] MEDS: SUCRALFATE 1 GM/10 ML UDC PO SCH (21:43)
[2020-09-16] MEDS: SIMVASTATIN 40 MG TAB PO SCH (21:43)
[2020-09-16] MEDS: INSULIN GLARGINE SOLOSTAR 100 UNITS/ML 3 ML PEN SC SCH (21:59)
[2020-09-17] MEDS: PIPERACILLIN/TAZOBACTAM 3.375 GM in DEXTROSE 5% 100 ML IV SCH ×2 (05:00→18:02)
[2020-09-17 06:50] LABS: Creatinine Clr Calc Pharmacy 19.5 ml/min; Est GFR (African American) 31.8; Est GFR (Non-African American) 27.4
[2020-09-17] MEDS: SACCHAROMYCES BOULARDII 250 MG CAP PO SCH ×2 (08:47→20:34)
[2020-09-17] MEDS: GABAPENTIN 600 MG TAB PO SCH ×2 (08:47→20:34)
[2020-09-17] MEDS: carvediloL 3.125 MG TAB PO SCH ×2 (08:47→20:33)
[2020-09-17] MEDS: allopurinoL 100 MG TAB PO SCH (08:48)
[2020-09-17] MEDS: CALCIUM CARBONATE 1250MG TAB PO SCH (08:48)
[2020-09-17] MEDS: APIXABAN 2.5 MG TAB PO SCH ×2 (08:48→20:34)
[2020-09-17] MEDS: ADVANCED PROBIOTIC 1250 MG CAPSULE PO SCH (08:48)
[2020-09-17] MEDS: SUCRALFATE 1 GM/10 ML UDC PO SCH ×4 (08:48→20:33)
[2020-09-17] MEDS: FAMOTIDINE 20 MG in SYRINGE 3 ML IV SCH ×2 (08:51→20:34)
[2020-09-17] MEDS: UMECLIDINIUM BROMIDE 62.5MCG/BLISTER 7 PUFFS/INHALER INH SCH (08:51)
[2020-09-17] MEDS: FLUTICASONE/VILANTEROL 100/25MCG 14 PUFFS/INHALER INH SCH (08:51)
[2020-09-17] MEDS: INSULIN ASPART 100 UNITS/ML 3 ML PEN SC SCH ×4 (08:52→20:50)
--- NOTE | 2020-09-17 11:03 | Surgery Progress Note ---
Date of Service Patient sitting in chair comfortably. pt has some intermittent discomfort in the upper abdomen that she describes as crampy Left lower quadrant pain is resolved Denies nausea and vomiting, no fever, no BM > 4 days, Tolerating clear liquids September 17, 2020 Assessment & Plan (1) Diverticulitis: Clinically improving slowly. Would continue with IV antibiotics. C. difficile was negative. Has less pain and tenderness. Most of her pain is upper abdomen. No peritonitis. No indication for surgical intervention at this time. DR. Ferrara, 09/17/2020 11:06AM 1) Diverticulitis: Clinically improving slowly. Would continue with IV antibiotics. C. difficile was negative. Has less pain and tenderness. Most of her pain is upper abdomen. No peritonitis. No indication for surgical intervention at this time. continue clear diet today, repeat labs in am, miralax, will F/U Admission and Anticipated Discharge Date Admission Date: September 12, 2020 Supervising Physician Co-Signing Physician Notes PA Supervision Note: I did not personally see or examine the patient today, but I verified all zhao points of MAUREEN Castañeda's assessment and plan with the following exceptions/additions: None Subjective pt c/o - 1. diarrhea - several loose BMs 2. mild MEYER - worse than baseline abd pain is improved in LLQ but still remains in upper abdomen - the upper abdominal pain started after LLQ recently tolerating clears no vomiting Physical Exam Constitutional: WD/WN, vitals as above well developed and well nourished Eyes: PERRL, conjunctivae normal, anicteric sclerae ENMT: external ear and nose normal, oropharynx normal Neck: trachea midline, no thyromegaly Respiratory: normal respiratory effort, lungs clear to auscultation normal respiratory effort Cardiovascular: RRR, no murmur, no edema Rate/Rhythm: regular rate and regular rhythm Gastrointestinal (Abdomen): Percussion/Palpation: abdomen soft mild tenderness at LUQ, no rebound pain, no distend, no tenderness at LLQ, BS + Musculoskeletal: no cyanosis or clubbing, extremities motor strength 5/5 Skin: no rashes, warm and dry Neurologic: awake Psychiatric: Orientation: alert and oriented x 3 Results & Data ([facility]) Vital Signs (Past 12 Hours) Vital Signs Temp Pulse Resp BP Pulse Ox 09/17/20 07:45 36.5 C 98 H 15 134/76 97 02/01/21 23:19 36.2 C L 61 16 145/78 H 97 Laboratory Results Abnormal lab results 09/16/20 09/16/20 09/16/20 Range/Units 12:02 17:10 20:28 Creatinine (0.6-1.2) mg/dl POC Glucose 138 H 132 H 256 H (70-99) mg/dl 09/17/20 Range/Units 05:52 Creatinine 1.67 H (0.6-1.2) mg/dl POC Glucose (70-99) mg/dl
[2020-09-17] MEDS ORDERED: POLYETHYLENE (MIRALAX) 17 GM PACK PO PRN (11:08)
--- NOTE | 2020-09-17 12:13 | Pharmacy Report ---
Pharmacy Glycemic Short Note 2 - Date of Service September 17, 2020 - Glycemic Short BSG Results (Last 24 hours): 09/16/20 09/16/20 09/17/20 17:10 20:28 08:06 POC Glucose 132 H 256 H 96 09/17/20 11:46 POC Glucose 115 H OUTPATIENT ANTIDIABETIC REGIMEN: * Toujeo 20-25 units HS, Novolog 15-20 units with meals * A1c ~7.0% ASSESSMENT: 09/17: * Patient received total of 15 units of insulin yesterday, of which 8 were basal insulin * Fasting BSG 96 mg/dL - plan to continue with basal scale for HS as PO intake is variable * Continue same CF/CR PLAN FOR INPATIENT GLYCEMIC CONTROL: * Hold outpatient oral diabetes medications * Basal insulin * Lantus 0-8 units SC HS (see EHR for details) * Bolus insulin * NovoLog per scale ACHS or Q6hrs while NPO * Goal Range: Low 120 mg/dL - High 160 mg/dL * Correction Factor: 40 mg/dL/unit * Nutritional / Prandial insulin per carb ratio of 1 unit per 13 grams CHO consumed PLAN FOR DISCHARGE: * A1c 7% - goal <8% reasonable * Patient currently requiring significantly less insulin during hospital admission, as PO intake poor. Last couple of days only requiring 10-15 units total of insulin. Would consider insulin dosage reduction if oral intake does not improve by time of discharge * She does follow [facility] for diabetes management. Last visit 06/2020 - dosing adjusted to Toujeo 18-20 units, Novolog 12 units TIDM and was instructed to cut novolog by ~50% if not eating * If PO intake does not improve, could consider decreasing home Toujeo dose by at least ~30% (12 units daily) and if patient able, would favor using a low dose SSI vs a set number of units for novolog with meals
[2020-09-17] MEDS ORDERED: POTASSIUM CHLORIDE 10 MEQ TABCR PO ONE (18:00)
[2020-09-17] MEDS ORDERED: FUROSEMIDE 20 MG in SYRINGE 0 ML IV ONE (18:00)
--- NOTE | 2020-09-17 20:29 | Hospitalist Progress Note ---
Date of Service September 17, 2020 Assessment & Plan (1) Diverticulitis of sigmoid colon: Continues to improve. Cont IV zosyn. Cont clears. Upper abdominal pain unlikely to be from sigmoid colon - likely from duodenal issues. Will need colonoscopy in 6-8 weeks as outpatient with [facility]. (2) Duodenitis: Recent CT with duodenitis. This may be cause of upper abdominal pain. PUD? Other? Lipase wnl thus pancreatitis causing duodenal irritation unlikely. Cont IV H2 ree. Cont carafate. Strongly consider EGD at time of colonoscopy. (3) Abnormal CT scan, sigmoid colon: 24 mm hypodense sigmoid lesion concerning for perisigmoid inflammatory mass versus mucosal/submucosal lesion. Needs colonoscopy after resolution of diverticulitis. (4) Dehydration: Resolved. (5) CAD (coronary artery disease): Mild non-obstructive CAD. Cont Coreg 3.125 mg BID, Eliquis 2.5mg BID, Simvastatin. (6) Pulmonary HTN: Estimated RVSP on Echocardiogram 03/05/2020 is 40 to [address] Little Normal RV systolic function. Continue treating underlying COPD/Asthma. Supplemental O2 qhs. Sats wnl in room air at rest. (7) COPD (chronic obstructive pulmonary disease): Without exacerbation. Cont usual inhalers. (8) Hypertension: Cont coreg. Holding ARB but BPs starting to rise -would resume tomorrow. (9) Hyperlipidemia: Cont Simvastatin 40mg daily. (10) Atrial flutter: a flutter/fib cont coreg cont eliquis rates controlled (11) Diabetes mellitus, type 2: Most recent A1c 7.0%. Appreciate pharmacy glycemic recommendations. Controlled. (12) Chronic kidney disease, stage IV (severe): Baseline Cr 1.5 to 1.7. Follows with Dr. Gleason. Cr 1.7 today. BMP am. (13) Pulmonary edema: Iatrogenic due to recent IVF in setting of advanced CKD. Lasix 20mg IV x 1 yesterday. Will repeat again today. BMP am. re-eval tomorrow. (14) DVT prophylaxis: eliquis BID daughter updated by phone 09/16 progressing PT, OT Admission and Anticipated Discharge Date Admission Date: September 12, 2020 Subjective patient c/o loose stools. abd pain improved - still with some upper abdominal discomfort, but it is less than previous. occasional nausea. no vomiting. no fevers/chills. LLQ pain resolved. tolerating clears. Review of Systems Constitutional: + weight gain; no fever and no chills Respiratory: + dyspnea on exertion Cardiovascular: + edema; no chest pain and no dyspnea at rest Gastrointestinal: + abdominal pain, + bloating and + diarrhea/loose stools Physical Exam Constitutional: well developed and well nourished; no acute distress and no altered mental status ENMT: external ear and nose normal, oropharynx normal Respiratory: no respiratory distress Auscultation: + rales (soft, fine, bases- improved from yesterday); no wheezes Cardiovascular: Rate/Rhythm: regular rate and + irregularly irregular Heart Sounds: normal S1 and normal S2; no murmur Vessels: + JVD, posterior tibial pulses present and dorsalis pedis pulses present Extremities: + edema (<1+ b/l) Gastrointestinal (Abdomen): Inspection/Auscultation: normal bowel sounds Percussion/Palpation: abdomen soft; abdomen nontender, no guarding and no hepatosplenomegaly Psychiatric: A+Ox3, euthymic affect Results & Data Results & Data ([facility]) Laboratory Results Laboratory Results - last 24 hr 09/16/20 09/17/20 09/17/20 20:28 05:52 08:06 Creatinine 1.67 H Est Cr Clr Drug Dosing 19.5 Est GFR ( Amer) 31.8 Est GFR (Non-Af Amer) 27.4 POC Glucose 256 H 96 09/17/20 09/17/20 11:46 17:11 Creatinine Est Cr Clr Drug Dosing Est GFR ( Amer) Est GFR (Non-Af Amer) POC Glucose 115 H 131 H PG Care Time/CCT Total # of Minutes Spent Total Time Spent with Patient: Total time spent is greater than 50% in coordination of care (as documented) at patient's floor/unit and/or counseling patient: Coding Level of Care Code 25607 Subseq Hosp Care Lvl 2 Diagnoses Diverticulitis of sigmoid colon K57.[address] scan, sigmoid colon R93.3 Dehydration E86.0 CAD (coronary artery disease) I25.10 Pulmonary HTN I27.20 COPD (chronic obstructive pulmonary disease) J44.9 Hypertension I10 Hyperlipidemia E78.5 Atrial flutter I48.92 Diabetes mellitus, type 2 E11.9 Chronic kidney disease, stage IV (severe) N18.4 Pulmonary edema J81.1 DVT prophylaxis Z29.9
[2020-09-17] MEDS: SIMVASTATIN 40 MG TAB PO SCH (20:34)
[2020-09-17] MEDS: INSULIN GLARGINE SOLOSTAR 100 UNITS/ML 3 ML PEN SC SCH (20:49)
[2020-09-18] MEDS: PIPERACILLIN/TAZOBACTAM 3.375 GM in DEXTROSE 5% 100 ML IV SCH ×2 (05:56→18:49)
[2020-09-18 07:05] LABS: Basophils # (auto) 0.02 K/uL (0-0.2); Basophils % (auto) 0.2 %; Eosinophils # (auto) 0.26 K/uL (0-0.5); Eosinophils % (auto) 3.1 %; Hemoglobin 10.9 g/dL (12.0-16.0); Immature Granulocytes # (auto) 0.01 K/uL (0.00-0.02); Immature Granulocytes % (auto) 0.1 %; Lymphocytes % (auto) 18.1 %; Mean Corpuscular Hemoglobin 32.1 pg (25-34); Mean Corpuscular Hgb Conc 34.1 g/dL (32-36); Mean Corpuscular Volume 94.1 fL (80-100); Mean Platelet Volume 11.1 fL (7.4-10.4); Monocytes % (auto) 9.7 %; Neutrophils % (auto) 68.8 %; Platelet Count 168 K/uL (130-400); RDW Standard Deviation 54.6 fL (36.4-46.3); White Blood Count 8.29 K/uL (4.8-10.8)
[2020-09-18 07:51] LABS: BUN Creatinine Ratio 10.7 (10-20); Calcium 7.7 mg/dl (8.5-10.1); Creatinine Clr Calc Pharmacy 21.9 ml/min; Est GFR (African American) 35.3; Est GFR (Non-African American) 30.5; Potassium 3.3 mmol/L (3.5-5.1)
[2020-09-18] MEDS: APIXABAN 2.5 MG TAB PO SCH ×2 (08:51→20:42)
[2020-09-18] MEDS: CALCIUM CARBONATE 1250MG TAB PO SCH (08:52)
[2020-09-18] MEDS: SUCRALFATE 1 GM/10 ML UDC PO SCH ×4 (08:52→20:41)
[2020-09-18] MEDS: carvediloL 3.125 MG TAB PO SCH ×2 (08:52→20:43)
[2020-09-18] MEDS: UMECLIDINIUM BROMIDE 62.5MCG/BLISTER 7 PUFFS/INHALER INH SCH (08:52)
[2020-09-18] MEDS: ADVANCED PROBIOTIC 1250 MG CAPSULE PO SCH (08:52)
[2020-09-18] MEDS: FLUTICASONE/VILANTEROL 100/25MCG 14 PUFFS/INHALER INH SCH (08:52)
[2020-09-18] MEDS: allopurinoL 100 MG TAB PO SCH (08:52)
[2020-09-18] MEDS: SACCHAROMYCES BOULARDII 250 MG CAP PO SCH ×2 (08:52→20:43)
[2020-09-18] MEDS: GABAPENTIN 600 MG TAB PO SCH ×2 (08:53→20:45)
[2020-09-18] MEDS: FAMOTIDINE 20 MG in SYRINGE 3 ML IV SCH ×2 (08:53→20:41)
[2020-09-18] MEDS: INSULIN ASPART 100 UNITS/ML 3 ML PEN SC SCH ×4 (08:56→21:20)
[2020-09-18] MEDS ORDERED: POTASSIUM CHLORIDE CRTAB 20 MEQ TABCR PO STA (10:09)
[2020-09-18] MEDS: PSYLLIUM 58.6% POWDER PACKET PO SCH ×2 (13:38→20:43)
--- NOTE | 2020-09-18 14:39 | Hospitalist Progress Note ---
Date of Service September 18, 2020 Assessment & Plan (1) Diverticulitis of sigmoid colon: Improving with intravenous Zosyn. Diet advance to full liquids. Upper abdominal pain unlikely to be from sigmoid colon - likely from gastric and/or duodenal issues. Will need colonoscopy in 6-8 weeks as outpatient with [facility]. Recommend EGD at that time also (2) Duodenitis: Recent CT with duodenitis. This may be cause of upper GI sx. Continue Pepcid and Carafate therapy. EGD at a later date along with colonoscopy. Lipase wnl . (3) Abnormal CT scan, sigmoid colon: 24 mm hypodense sigmoid lesion concerning for perisigmoid inflammatory mass versus mucosal/submucosal lesion. Needs colonoscopy after resolution of diverticulitis. (4) Dehydration: Resolved. (5) CAD (coronary artery disease): Mild non-obstructive CAD. Cont Coreg 3.125 mg BID, Eliquis 2.5mg BID, Simvastatin. (6) Pulmonary HTN: Estimated RVSP on Echocardiogram 03/05/2020 is 40 to [address] Little Normal RV systolic function. Continue treating underlying COPD/Asthma. Supplemental O2 qhs. Sats wnl in room air at rest. (7) COPD (chronic obstructive pulmonary disease): Without exacerbation. Cont usual inhalers. (8) Hypertension: Cont coreg. Was on hold since admission and will be restarted today, Sep ruary 3. (9) Hyperlipidemia: Cont Simvastatin 40mg daily. (10) Atrial flutter: a flutter/fib cont coreg cont eliquis rates controlled (11) Diabetes mellitus, type 2: Most recent A1c 7.0%. Appreciate pharmacy glycemic recommendations. Controlled. (12) Chronic kidney disease, stage IV (severe): Baseline Cr 1.5 to 1.7. Follows with Dr. Gleason. Cr 1.5 today. BMP am. (13) Pulmonary edema: Iatrogenic due to recent IVF in setting of advanced CKD. Resolved with parenteral Lasix therapy. (14) DVT prophylaxis: eliquis BID Disposition: Eventual discharge to home. Continue PT, OT Admission and Anticipated Discharge Date Admission Date: September 12, 2020 Subjective Diarrhea is main complaint. This is from the diverticulitis and antibiotic therapy. Will start Metamucil to add bulk. Continue potassium replacement. Diet advance to full liquids. Continue OT and PT. Hopefully home soon. Review of Systems Review of Systems: Constitutional-no fever or chills ENT-no blurred vision, no double vision, no epistaxis, no sore throat Respiratory-no cough, no wheezing, no shortness of breath Cardiac-no palpitations, no chest pain, no syncope GI-no nausea, vomiting, melena, hematochezia. Complaining now of loose stools -no urinary retention, no urinary incontinence, no dysuria, no hematuria Musculoskeletal-no joint pain, no muscle tenderness Skin-no bruising, no rashes, no pruritus Neuro-no isolated weakness, no paresthesia, no weakness Psych-no depression, no anxiety Physical Exam Physical Exam: General-alert and oriented x3, no fevers, no chills HEENT-head atraumatic and normocephalic, TMs intact bilaterally, pupils equal and reactive to light, extraocular muscles intact Neck-no lymphadenopathy or thyromegaly, trachea midline Chest-clear to auscultation percussion. No rales wheezing or rhonchi Cardiac-regular rate and rhythm, normal S1 and S2, no murmurs Abdomen-normal bowel sounds, no hepatosplenomegaly. Mild epigastric area tenderness. No rebound or guarding. Extremities-no cyanosis, clubbing, or edema Neuro-cranial nerves II through XII intact, motor and sensory function within normal limits, strength symmetrical 5/5, no focal deficits Psych-normal affect, normal mood Results & Data Results & Data ([facility]) Vital Signs (Past 12 Hours) Vital Signs Temp Pulse Resp BP Pulse Ox 09/18/20 07:25 36.5 C 61 14 135/69 96 Laboratory Results 09/18/20 06:42 09/18/20 06:42 PG Care Time/CCT Total # of Minutes Spent Total Time Spent with Patient: Total time spent is greater than 50% in coordination of care (as documented) at patient's floor/unit and/or counseling patient: Coding Level of Care Code 23412 Subseq Hosp Care Lvl 3 Diagnoses Diverticulitis of sigmoid colon K57.[address] scan, sigmoid colon R93.3 Dehydration E86.0 CAD (coronary artery disease) I25.10 Pulmonary HTN I27.20 COPD (chronic obstructive pulmonary disease) J44.9 Hypertension I10 Hyperlipidemia E78.5 Atrial flutter I48.92 Diabetes mellitus, type 2 E11.9 Chronic kidney disease, stage IV (severe) N18.4 Pulmonary edema J81.1 DVT prophylaxis Z29.9
[2020-09-18] MEDS: TELMISARTAN 40 MG TAB PO SCH (15:49)
[2020-09-18] MEDS: SIMVASTATIN 40 MG TAB PO SCH (20:46)
[2020-09-18] MEDS: INSULIN GLARGINE SOLOSTAR 100 UNITS/ML 3 ML PEN SC SCH (21:21)
[2020-09-18] MEDS: ACETAMINOPHEN 325 MG TAB PO PRN (22:46)
[2020-09-19 00:04] LABS: Cdiff Antigen Positive
[2020-09-19 00:07] LABS: Cdiff Toxin A+B Positive Cdiff Toxin (Negative)
--- NOTE | 2020-09-19 00:15 | Communication Note ---
Date of Service: September 19, 2020 Called to patient's bedside for complaints of question for decrease in mental status. Per nurse patient was taking a long time to get her thoughts out and seemed distractable. Of note, patient also had several boughts of voluminous diarrhea causing incontinence which is atypical for the patient. She was also febrile. She is currently on Zosyn for diverticulitis. At bedside patient was alert and oriented x3, just needed some extra time to answer questions. Admitted to having a rough day and feeling exhausted. Was able to tell me her name and , that she is in the hospital for a belly infection, and what time of year it is. We also had a conversation about [employer] and the faustin her daughter brought her. On exam I noted no focal neurologic deficits, and abdomen was soft and mildly tender throughout. C. diff testing returned and was noted to be gene and toxin positive. Vancomycin 125mg q6h for 10 days started this evening for first-time diagnosis of C. diff. Patient is now afebrile after getting Tylenol. Suspect concern for change in mental status was secondary to fatigue and fever, no imaging at this time.
[2020-09-19] MEDS: RASPBERRY SYRUP 5 ML UDP PO SCH ×3 (05:20→17:10)
[2020-09-19] MEDS: PIPERACILLIN/TAZOBACTAM 3.375 GM in DEXTROSE 5% 100 ML IV SCH ×2 (05:20→17:11)
[2020-09-19] MEDS: VANCOMYCIN HCL 125 MG/2.5ML SOLN PO SCH ×3 (05:20→17:10)
[2020-09-19 07:19] LABS: BUN Creatinine Ratio 10.5 (10-20); Calcium 7.7 mg/dl (8.5-10.1); Creatinine Clr Calc Pharmacy 19.7 ml/min; Est GFR (African American) 31.1; Est GFR (Non-African American) 26.8; Potassium 3.4 mmol/L (3.5-5.1)
[2020-09-19] MEDS: UMECLIDINIUM BROMIDE 62.5MCG/BLISTER 7 PUFFS/INHALER INH SCH (08:42)
[2020-09-19] MEDS: FLUTICASONE/VILANTEROL 100/25MCG 14 PUFFS/INHALER INH SCH (08:42)
[2020-09-19] MEDS: INSULIN ASPART 100 UNITS/ML 3 ML PEN SC SCH ×4 (08:42→21:13)
[2020-09-19] MEDS: SUCRALFATE 1 GM/10 ML UDC PO SCH ×4 (08:43→21:12)
[2020-09-19] MEDS: ADVANCED PROBIOTIC 1250 MG CAPSULE PO SCH (08:43)
[2020-09-19] MEDS: carvediloL 3.125 MG TAB PO SCH ×2 (08:43→21:12)
[2020-09-19] MEDS: GABAPENTIN 600 MG TAB PO SCH ×2 (08:43→21:12)
[2020-09-19] MEDS: TELMISARTAN 40 MG TAB PO SCH (08:44)
[2020-09-19] MEDS: PSYLLIUM 58.6% POWDER PACKET PO SCH ×2 (08:44→21:22)
[2020-09-19] MEDS: CALCIUM CARBONATE 1250MG TAB PO SCH (08:44)
[2020-09-19] MEDS: allopurinoL 100 MG TAB PO SCH (08:44)
[2020-09-19] MEDS: SACCHAROMYCES BOULARDII 250 MG CAP PO SCH ×2 (08:44→21:12)
[2020-09-19] MEDS: APIXABAN 2.5 MG TAB PO SCH ×2 (08:44→21:12)
[2020-09-19] MEDS: FAMOTIDINE 20 MG in SYRINGE 3 ML IV SCH ×2 (08:58→21:13)
--- NOTE | 2020-09-19 09:04 | Pharmacy Report ---
Pharmacy Glycemic Short Note 2 - Date of Service September 19, 2020 - Glycemic Short BSG Results (Last 24 hours): 09/18/20 09/18/20 09/18/20 12:15 17:10 20:42 Glucose POC Glucose 148 H 118 H 168 H 09/18/20 09/19/20 09/19/20 23:42 05:46 08:06 Glucose 137 H POC Glucose 145 H 150 H OUTPATIENT ANTIDIABETIC REGIMEN: * Toujeo 20-25 units HS, Novolog 15-20 units with meals * A1c ~7.0% ASSESSMENT: 09/19: * Liz received 7 units of insulin yesterday * 5 units of basal * 2 units of bolus * BSGs: 113, 148, 118, 168 mg/dL * Of note, patient did not feel well and had several episodes of diarrhea. She was found to be positive for C.difficile and has been started on oral vancomycin * Fasting BSG of 150 mg/dL is slightly above goal, however I will not react to single elevation (previous fasting of 96 mg/dL on 09/17 and 113 mg/dL on 09/18) * Post prandial BSGs are acceptable 09/17: * Patient received total of 15 units of insulin yesterday, of which 8 were basal insulin * Fasting BSG 96 mg/dL - plan to continue with basal scale for HS as PO intake is variable * Continue same CF/CR PLAN FOR INPATIENT GLYCEMIC CONTROL: * Hold outpatient oral diabetes medications * Basal insulin * Lantus 0-8 units SC HS (see EHR for details) * Bolus insulin * NovoLog per scale ACHS or Q6hrs while NPO * Goal Range: Low 120 mg/dL - High 150 mg/dL * Correction Factor: 40 mg/dL/unit * Nutritional / Prandial insulin per carb ratio of 1 unit per 13 grams CHO consumed PLAN FOR DISCHARGE: * A1c 7% - goal <8% reasonable * Patient currently requiring significantly less insulin during hospital admission, as PO intake poor. Last couple of days only requiring 10-15 units total of insulin. Would consider insulin dosage reduction if oral intake does not improve by time of discharge * She does follow [place] [facility] for diabetes management. Last visit 06/2020 - dosing adjusted to Toujeo 18-20 units, Novolog 12 units TIDM and was instructed to cut novolog by ~50% if not eating * If PO intake does not improve, could consider decreasing home Toujeo dose by at least ~30% (12 units daily) and if patient able, would favor using a low dose SSI vs a set number of units for novolog with meals
[2020-09-19] MEDS: POTASSIUM CHLORIDE 10 MEQ TABCR PO SCH ×2 (10:35→21:12)
--- NOTE | 2020-09-19 12:56 | Hospitalist Progress Note ---
Date of Service September 19, 2020 Assessment & Plan (1) Diverticulitis of sigmoid colon: Improving with intravenous Zosyn. Currently on full liquids. Upper abdominal pain unlikely to be from sigmoid colon - likely from gastric and/or duodenal issues. Will need colonoscopy in 6-8 weeks as outpatient with [facility]. Recommend EGD at that time also (2) Duodenitis: Recent CT with duodenitis. This may be cause of upper GI sx. Continue Pepcid and Carafate therapy. EGD at a later date along with colonoscopy. Lipase wnl . (3) Abnormal CT scan, sigmoid colon: 24 mm hypodense sigmoid lesion concerning for perisigmoid inflammatory mass versus mucosal/submucosal lesion. Needs colonoscopy after resolution of diverticulitis. (4) Dehydration: Resolved. (5) CAD (coronary artery disease): Mild non-obstructive CAD. Cont Coreg 3.125 mg BID, Eliquis 2.5mg BID, Simvastatin. (6) Pulmonary HTN: Estimated RVSP on Echocardiogram 03/05/2020 is 40 to [address] Little Normal RV systolic function. Continue treating underlying COPD/Asthma. Supplemental O2 qhs. Sats wnl in room air at rest. (7) COPD (chronic obstructive pulmonary disease): Without exacerbation. Cont usual inhalers. (8) Hypertension: Cont coreg. Was on hold since admission and will be restarted today, September 18. (9) Hyperlipidemia: Cont Simvastatin 40mg daily. (10) Atrial flutter: a flutter/fib cont coreg cont eliquis rates controlled (11) Diabetes mellitus, type 2: Most recent A1c 7.0%. Appreciate pharmacy glycemic recommendations. Controlled. (12) Chronic kidney disease, stage IV (severe): Baseline Cr 1.5 to 1.7. Follows with Dr. Gleason. Cr 1.7 today. BMP am. (13) Pulmonary edema: Iatrogenic due to recent IVF in setting of advanced CKD. Resolved with parenteral Lasix therapy. (14) DVT prophylaxis: eliquis BID Disposition: Eventual discharge to home. Continue PT, OT (15) Clostridium difficile diarrhea: Now on vancomycin therapy, day 1 of 10. Present on Admission?: No Admission and Anticipated Discharge Date Admission Date: September 12, 2020 Subjective No significant clinical change. However, her C. difficile toxin assay did come back positive and she is now on oral vancomycin therapy. She is maintaining sat isfactory oral intake at this time and will avoid IV fluids for now. Creatinine trended upward to 1.7 today. If it is higher tomorrow, will start IV fluids. Potassium remains low at 3.4. Oral potassium supplementation started. Review of Systems 2 Review of Systems: Constitutional-no fever or chills ENT-no blurred vision, no double vision, no epistaxis, no sore throat Respiratory-no cough, no wheezing, no shortness of breath Cardiac-no palpitations, no chest pain, no syncope GI-frequent loose stools. No nausea, vomiting, melena, hematochezia -no urinary retention, no urinary incontinence, no dysuria, no hematuria Musculoskeletal-no joint pain, no muscle tenderness Skin-no bruising, no rashes, no pruritus Neuro-no isolated weakness, no paresthesia, no weakness Psych-no depression, no anxiety Physical Exam Physical Exam: General-alert and oriented x3, no fevers, no chills HEENT-head atraumatic and normocephalic, TMs intact bilaterally, pupils equal and reactive to light, extraocular muscles intact Neck-no lymphadenopathy or thyromegaly, trachea midline Chest-clear to auscultation percussion. No rales wheezing or rhonchi Cardiac-regular rate and rhythm, normal S1 and S2, no murmurs Abdomen-normal bowel sounds, nontender, no hepatosplenomegaly Extremities-no cyanosis, clubbing, or edema Neuro-cranial nerves II through XII intact, motor and sensory function within normal limits, strength symmetrical , no focal deficits Psych-normal affect, normal mood Results & Data Results & Data ([facility]) Vital Signs (Past 12 Hours) Vital Signs Temp Pulse Resp BP Pulse Ox 09/19/20 07:17 37.3 C 71 16 109/62 95 Laboratory Results 09/18/20 06:42 09/19/20 05:46 PG Care Time/CCT Total # of Minutes Spent Total Time Spent with Patient: Total time spent is greater than 50% in coordination of care (as documented) at patient's floor/unit and/or counseling patient: Coding Level of Care Code 44471 Subseq Hosp Care Lvl 3 Diagnoses Diverticulitis of sigmoid colon K57.[address] scan, sigmoid colon R93.3 Dehydration E86.0 CAD (coronary artery disease) I25.10 Pulmonary HTN I27.20 COPD (chronic obstructive pulmonary disease) J44.9 Hypertension I10 Hyperlipidemia E78.5 Atrial flutter I48.92 Diabetes mellitus, type 2 E11.9 Chronic kidney disease, stage IV (severe) N18.4 Pulmonary edema J81.1 DVT prophylaxis Z29.9 Clostridium difficile diarrhea A04.72
[2020-09-19] MEDS: SIMVASTATIN 40 MG TAB PO SCH (21:12)
[2020-09-19] MEDS: INSULIN GLARGINE SOLOSTAR 100 UNITS/ML 3 ML PEN SC SCH (21:13)
[2020-09-20] MEDS: VANCOMYCIN HCL 125 MG/2.5ML SOLN PO SCH ×5 (00:02→23:58)
[2020-09-20] MEDS: RASPBERRY SYRUP 5 ML UDP PO SCH ×5 (00:05→23:58)
[2020-09-20] MEDS: PIPERACILLIN/TAZOBACTAM 3.375 GM in DEXTROSE 5% 100 ML IV SCH ×2 (05:12→17:43)
[2020-09-20 06:24] LABS: Basophils # (auto) 0.02 K/uL (0-0.2); Basophils % (auto) 0.1 %; Eosinophils # (auto) 0.12 K/uL (0-0.5); Eosinophils % (auto) 0.7 %; Hematocrit (blood only) 31.2 % (37-47); Hemoglobin 10.6 g/dL (12.0-16.0); Immature Granulocytes # (auto) 0.06 K/uL (0.00-0.02); Immature Granulocytes % (auto) 0.3 %; Lymphocytes # (auto) 1.61 K/uL (1.2-3.4); Lymphocytes % (auto) 9.3 %; Mean Corpuscular Hemoglobin 32.4 pg (25-34); Mean Corpuscular Volume 95.4 fL (80-100); Mean Platelet Volume 11.9 fL (7.4-10.4); Monocytes # (auto) 1.19 K/uL (0.11-0.59); Monocytes % (auto) 6.9 %; Neutrophils # (auto) 14.34 K/uL (1.4-6.5); Neutrophils % (auto) 82.7 %; Platelet Count 146 K/uL (130-400); RDW Standard Deviation 55.5 fL (36.4-46.3); Red Blood Count 3.27 M/uL (4.2-5.4); White Blood Count 17.34 K/uL (4.8-10.8)
[2020-09-20 07:06] LABS: BUN Creatinine Ratio 11.1 (10-20); Calcium 7.7 mg/dl (8.5-10.1); Creatinine Clr Calc Pharmacy 20.3 ml/min; Est GFR (African American) 32.2; Est GFR (Non-African American) 27.8; Potassium 3.3 mmol/L (3.5-5.1)
[2020-09-20] MEDS: FLUTICASONE/VILANTEROL 100/25MCG 14 PUFFS/INHALER INH SCH (09:15)
[2020-09-20] MEDS: INSULIN ASPART 100 UNITS/ML 3 ML PEN SC SCH ×4 (09:15→21:55)
[2020-09-20] MEDS: UMECLIDINIUM BROMIDE 62.5MCG/BLISTER 7 PUFFS/INHALER INH SCH (09:16)
[2020-09-20] MEDS: PSYLLIUM 58.6% POWDER PACKET PO SCH ×2 (09:27→22:02)
[2020-09-20] MEDS: APIXABAN 2.5 MG TAB PO SCH ×2 (09:28→21:59)
[2020-09-20] MEDS: carvediloL 3.125 MG TAB PO SCH ×2 (09:28→21:59)
[2020-09-20] MEDS: GABAPENTIN 600 MG TAB PO SCH ×2 (09:29→21:59)
[2020-09-20] MEDS: TELMISARTAN 40 MG TAB PO SCH (09:29)
[2020-09-20] MEDS: POTASSIUM CHLORIDE 10 MEQ TABCR PO SCH (09:29)
[2020-09-20] MEDS: ADVANCED PROBIOTIC 1250 MG CAPSULE PO SCH (09:30)
[2020-09-20] MEDS: SACCHAROMYCES BOULARDII 250 MG CAP PO SCH ×2 (09:30→21:59)
[2020-09-20] MEDS: CALCIUM CARBONATE 1250MG TAB PO SCH (09:30)
[2020-09-20] MEDS: allopurinoL 100 MG TAB PO SCH (09:31)
[2020-09-20] MEDS: SUCRALFATE 1 GM/10 ML UDC PO SCH ×4 (09:32→21:58)
[2020-09-20] MEDS: FAMOTIDINE 20 MG in SYRINGE 3 ML IV SCH ×2 (09:32→22:01)
[2020-09-20] MEDS: POTASSIUM CHLORIDE CRTAB 20 MEQ TABCR PO SCH ×2 (10:58→21:59)
--- NOTE | 2020-09-20 13:45 | Hospitalist Progress Note ---
Date of Service September 20, 2020 Assessment & Plan (1) Diverticulitis of sigmoid colon: Improving with intravenous Zosyn. Currently on full liquids. Advance to regular diet today, September 20. Upper abdominal pain unlikely to be from sigmoid colon - likely from gastric and/or duodenal issues. Will need colonoscopy in 6-8 weeks as outpatient with [facility]. Recommend EGD at that time also (2) Duodenitis: Recent CT with duodenitis. This may be cause of upper GI sx. Continue Pepcid and Carafate therapy. EGD at a later date along with colonoscopy. Lipase wnl . (3) Abnormal CT scan, sigmoid colon: 24 mm hypodense sigmoid lesion concerning for perisigmoid inflammatory mass versus mucosal/submucosal lesion. Needs colonoscopy after resolution of diverticulitis. (4) Dehydration: Resolved. (5) CAD (coronary artery disease): Mild non-obstructive CAD. Cont Coreg 3.125 mg BID, Eliquis 2.5mg BID, Simvastatin. (6) Pulmonary HTN: Estimated RVSP on Echocardiogram 03/05/2020 is 40 to [address] Little Normal RV systolic function. Continue treating underlying COPD/Asthma. Supplemental O2 qhs. Sats wnl in room air at rest. (7) COPD (chronic obstructive pulmonary disease): Without exacerbation. Cont usual inhalers. (8) Hypertension: Cont coreg. Was on hold since admission and will be restarted today, September 18. (9) Hyperlipidemia: Cont Simvastatin 40mg daily. (10) Atrial flutter: a flutter/fib cont coreg cont eliquis rates controlled (11) Diabetes mellitus, type 2: Most recent A1c 7.0%. Appreciate pharmacy glycemic recommendations. Controlled. (12) Chronic kidney disease, stage IV (severe): Baseline Cr 1.5 to 1.7. Follows with Dr. Gleason. Cr 1.6 today. BMP am. (13) Pulmonary edema: Iatrogenic due to recent IVF in setting of advanced CKD. Resolved with parenteral Lasix therapy. (14) DVT prophylaxis: eliquis BID Disposition: Eventual discharge to home. Continue PT, OT (15) Clostridium difficile diarrhea: Now on vancomycin therapy, day 2 of 10. Metamucil twice daily to add bulk and decrease frequency of loose stools Admission and Anticipated Discharge Date Admission Date: September 12, 2020 Subjective Alert and pleasant. Creatinine stable at 1.6. Oral intake appears to be adequate. Diet advance to regular diet. Potassium remains low and oral replacement uptitrated today. She is on oral vancomycin day 2 of 10. She continues with Zosyn for the diverticulitis. Review of Systems Review of Systems: Constitutional-no fever or chills ENT-no blurred vision, no double vision, no epistaxis, no sore throat Respiratory-no cough, no wheezing, no shortness of breath Cardiac-no palpitations, no chest pain, no syncope GI-no nausea, vomiting, melena, hematochezia. Diarrhea due to C. difficile enteritis -no urinary retention, no urinary incontinence, no dysuria, no hematuria Musculoskeletal-no joint pain, no muscle tenderness Skin-no bruising, no rashes, no pruritus Neuro-no isolated weakness, no paresthesia, no weakness Psych-no depression, no anxiety Physical Exam Physical Exam: General-alert and oriented x3, no fevers, no chills HEENT-head atraumatic and normocephalic, TMs intact bilaterally, pupils equal and reactive to light, extraocular muscles intact Neck-no lymphadenopathy or thyromegaly, trachea midline Chest-clear to auscultation percussion. No rales wheezing or rhonchi Cardiac-regular rate and rhythm, normal S1 and S2, no murmurs Abdomen-normal bowel sounds, no hepatosplenomegaly. Mild diffuse tenderness. No rebound or guarding Extremities-no cyanosis, clubbing, or edema Neuro-cranial nerves II through XII intact, motor and sensory function within normal limits, strength symmetrical , no focal deficits Psych-normal affect, normal mood Results & Data Results & Data ([facility]) Vital Signs (Past 12 Hours) Vital Signs Temp Pulse Resp BP Pulse Ox 09/20/20 07:33 36.6 C 65 16 115/71 94 Laboratory Results 09/20/20 05:42 09/20/20 05:42 PG Care Time/CCT Total # of Minutes Spent Total Time Spent with Patient: Total time spent is greater than 50% in coord ination of care (as documented) at patient's floor/unit and/or counseling patient: Coding Level of Care Code 55403 Subseq Hosp Care Lvl 3 Diagnoses Diverticulitis of sigmoid colon K57.[address] scan, sigmoid colon R93.3 Dehydration E86.0 CAD (coronary artery disease) I25.10 Pulmonary HTN I27.20 COPD (chronic obstructive pulmonary disease) J44.9 Hypertension I10 Hyperlipidemia E78.5 Atrial flutter I48.92 Diabetes mellitus, type 2 E11.9 Chronic kidney disease, stage IV (severe) N18.4 Pulmonary edema J81.1 DVT prophylaxis Z29.9 Clostridium difficile diarrhea A04.72
[2020-09-20] MEDS: INSULIN GLARGINE SOLOSTAR 100 UNITS/ML 3 ML PEN SC SCH (21:54)
[2020-09-20] MEDS: SIMVASTATIN 40 MG TAB PO SCH (21:59)
[2020-09-21] MEDS: ACETAMINOPHEN 325 MG TAB PO PRN (02:51)
[2020-09-21] MEDS: PIPERACILLIN/TAZOBACTAM 3.375 GM in DEXTROSE 5% 100 ML IV SCH ×2 (05:26→17:38)
[2020-09-21] MEDS: VANCOMYCIN HCL 125 MG/2.5ML SOLN PO SCH ×4 (05:27→23:16)
[2020-09-21] MEDS: RASPBERRY SYRUP 5 ML UDP PO SCH ×4 (05:27→23:16)
[2020-09-21 07:09] LABS: Basophils # (auto) 0.02 K/uL (0-0.2); Basophils % (auto) 0.1 %; Eosinophils # (auto) 0.35 K/uL (0-0.5); Eosinophils % (auto) 2.6 %; Hemoglobin 10.2 g/dL (12.0-16.0); Immature Granulocytes # (auto) 0.02 K/uL (0.00-0.02); Immature Granulocytes % (auto) 0.1 %; Lymphocytes # (auto) 1.11 K/uL (1.2-3.4); Lymphocytes % (auto) 8.1 %; Mean Corpuscular Hemoglobin 32.3 pg (25-34); Mean Corpuscular Volume 94.9 fL (80-100); Mean Platelet Volume 11.5 fL (7.4-10.4); Monocytes # (auto) 0.98 K/uL (0.11-0.59); Monocytes % (auto) 7.2 %; Neutrophils # (auto) 11.15 K/uL (1.4-6.5); Neutrophils % (auto) 81.9 %; Platelet Count 138 K/uL (130-400); RDW Coefficient of Variation 15.7 % (11.5-14.5); RDW Standard Deviation 55.1 fL (36.4-46.3); Red Blood Count 3.16 M/uL (4.2-5.4); White Blood Count 13.63 K/uL (4.8-10.8)
[2020-09-21 07:39] LABS: BUN Creatinine Ratio 11.1 (10-20); Calcium 8.4 mg/dl (8.5-10.1); Creatinine Clr Calc Pharmacy 21.9 ml/min; Est GFR (African American) 35.3; Est GFR (Non-African American) 30.5; Potassium 3.6 mmol/L (3.5-5.1)
[2020-09-21] MEDS: INSULIN ASPART 100 UNITS/ML 3 ML PEN SC SCH ×4 (09:24→20:53)
[2020-09-21] MEDS: UMECLIDINIUM BROMIDE 62.5MCG/BLISTER 7 PUFFS/INHALER INH SCH (09:26)
[2020-09-21] MEDS: FLUTICASONE/VILANTEROL 100/25MCG 14 PUFFS/INHALER INH SCH (09:28)
[2020-09-21] MEDS: carvediloL 3.125 MG TAB PO SCH ×2 (09:30→20:46)
[2020-09-21] MEDS: APIXABAN 2.5 MG TAB PO SCH ×2 (09:30→20:46)
[2020-09-21] MEDS: POTASSIUM CHLORIDE CRTAB 20 MEQ TABCR PO SCH ×2 (09:31→20:46)
[2020-09-21] MEDS: SACCHAROMYCES BOULARDII 250 MG CAP PO SCH ×2 (09:31→20:46)
[2020-09-21] MEDS: TELMISARTAN 40 MG TAB PO SCH (09:32)
[2020-09-21] MEDS: GABAPENTIN 600 MG TAB PO SCH ×2 (09:32→20:46)
[2020-09-21] MEDS: CALCIUM CARBONATE 1250MG TAB PO SCH (09:32)
[2020-09-21] MEDS: ADVANCED PROBIOTIC 1250 MG CAPSULE PO SCH (09:32)
[2020-09-21] MEDS: allopurinoL 100 MG TAB PO SCH (09:33)
[2020-09-21] MEDS: SUCRALFATE 1 GM/10 ML UDC PO SCH ×2 (09:35→13:24)
[2020-09-21] MEDS: PSYLLIUM 58.6% POWDER PACKET PO SCH ×2 (10:37→20:47)
[2020-09-21] MEDS: FAMOTIDINE 20 MG in SYRINGE 3 ML IV SCH ×2 (13:26→20:46)
--- NOTE | 2020-09-21 14:23 | Hospitalist Progress Note ---
Date of Service September 21, 2020 Assessment & Plan (1) Diverticulitis of sigmoid colon: Improving with intravenous Zosyn. Currently on full liquids. Advance to regular diet today, September 20. Upper abdominal pain unlikely to be from sigmoid colon - likely from gastric and/or duodenal issues. Will need colonoscopy in 6-8 weeks as outpatient with [facility]. Recommend EGD at that time also (2) Duodenitis: Recent CT with duodenitis. This may be cause of upper GI sx. Continue Pepcid and Carafate therapy. EGD at a later date along with colonoscopy. Lipase wnl . (3) Abnormal CT scan, sigmoid colon: 24 mm hypodense sigmoid lesion concerning for perisigmoid inflammatory mass versus mucosal/submucosal lesion. Needs colonoscopy after resolution of diverticulitis. (4) Dehydration: Resolved. (5) CAD (coronary artery disease): Mild non-obstructive CAD. Cont Coreg 3.125 mg BID, Eliquis 2.5mg BID, Simvastatin. (6) Pulmonary HTN: Estimated RVSP on Echocardiogram 03/05/2020 is 40 to [address] Little Normal RV systolic function. Continue treating underlying COPD/Asthma. Supplemental O2 qhs. Sats wnl in room air at rest. (7) COPD (chronic obstructive pulmonary disease): Without exacerbation. Cont usual inhalers. (8) Hypertension: Cont coreg. Was on hold since admission and will be restarted today, September 18. (9) Hyperlipidemia: Cont Simvastatin 40mg daily. (10) Atrial flutter: a flutter/fib cont coreg cont eliquis rates controlled (11) Diabetes mellitus, type 2: Most recent A1c 7.0%. Appreciate pharmacy glycemic recommendations. Controlled. (12) Chronic kidney disease, stage IV (severe): Baseline Cr 1.5 to 1.7. Follows with Dr. Gleason. Cr 1.6 today. BMP am. (13) Pulmonary edema: Iatrogenic due to recent IVF in setting of advanced CKD. Resolved with parenteral Lasix therapy. (14) DVT prophylaxis: eliquis BID Disposition: Eventual discharge to home with her sister. Continue PT, OT (15) Clostridium difficile diarrhea: Now on vancomycin therapy started 09/19, planning for 10days total Metamucil twice daily to add bulk and decrease frequency of loose stools Ongoing sx that are improving, but still difficult for pt to navigate without assistance Admission and Anticipated Discharge Date Admission Date: September 12, 2020 Subjective Pt feels her diarrhea is improving. Still with frequent episodes and urgency. St ill with decreased PO intake. Occasional cramping abd pain, but not like [employer]. Pt denies fever, SOB, chest pain, n/v, LE pain or swelling. Nursing requesting PO carafate as pt does not like the liquid form and "fights me" to take it. Review of Systems Review of Systems: Pertinent positives and negatives reviewed in HPI--all others negative Physical Exam Constitutional: WD/WN, vitals as above Eyes: normal visual avalos by confrontation and + anicteric sclerae Neck: normal visual inspection and trachea midline Respiratory: normal respiratory effort, lungs clear to auscultation Cardiovascular: Rate/Rhythm: regular rate and regular rhythm Gastrointestinal (Abdomen): Inspection/Auscultation: abdomen not distended Percussion/Palpation: abdomen soft; abdomen nontender Musculoskeletal: Head/Neck/Chest: normocephalic and head atraumatic negative for edema, peripheral pulses intact Skin: no rashes, warm and dry Neurologic: awake; not confused Speech / Cognition: normal speech Psychiatric: A+Ox3, euthymic affect Results & Data Results & Data ([facility]) Vital Signs (Past 12 Hours) Vital Signs Temp Pulse Pulse Resp BP Pulse Ox 09/21/20 08:01 36.7 C 68 16 127/82 98 09/21/20 03:10 68 18 97 PG Care Time/CCT Total # of Minutes Spent Total Time Spent with Patient: Total time spent is greater than 50% in coordination of care (as documented) at patient's floor/unit and/or counseling patient: Coding Level of Care Code 61311 Subseq Hosp Care Lvl 3 Diagnoses Diverticulitis of sigmoid colon K57.[address] scan, sigmoid colon R93.3 Dehydration E86.0 CAD (coronary artery disease) I25.10 Pulmonary HTN I27.20 COPD (chronic obstructive pulmonary disease) J44.9 Hypertension I10 Hyperlipidemia E78.5 Atrial flutter I48.92 Diabetes mellitus, type 2 E11.9 Chronic kidney disease, stage IV (severe) N18.4 Pulmonary edema J81.1 DVT prophylaxis Z29.9 Clostridium difficile diarrhea A04.72
[2020-09-21] MEDS: SUCRALFATE 1 GM TAB PO SCH ×2 (17:37→20:46)
[2020-09-21] MEDS: SIMVASTATIN 40 MG TAB PO SCH (20:46)
[2020-09-21] MEDS: INSULIN GLARGINE SOLOSTAR 100 UNITS/ML 3 ML PEN SC SCH (20:51)
[2020-09-22] MEDS: RASPBERRY SYRUP 5 ML UDP PO SCH ×4 (05:44→23:37)
[2020-09-22] MEDS: VANCOMYCIN HCL 125 MG/2.5ML SOLN PO SCH ×4 (05:45→23:37)
[2020-09-22] MEDS: PIPERACILLIN/TAZOBACTAM 3.375 GM in DEXTROSE 5% 100 ML IV SCH ×3 (06:29→21:42)
[2020-09-22 06:40] LABS: Basophils # (auto) 0.01 K/uL (0-0.2); Basophils % (auto) 0.1 %; Eosinophils # (auto) 0.45 K/uL (0-0.5); Eosinophils % (auto) 4.6 %; Hematocrit (blood only) 30.6 % (37-47); Hemoglobin 10.4 g/dL (12.0-16.0); Immature Granulocytes # (auto) 0.02 K/uL (0.00-0.02); Immature Granulocytes % (auto) 0.2 %; Lymphocytes % (auto) 11.3 %; Mean Corpuscular Hemoglobin 32.1 pg (25-34); Mean Corpuscular Volume 94.4 fL (80-100); Mean Platelet Volume 11.4 fL (7.4-10.4); Monocytes # (auto) 0.91 K/uL (0.11-0.59); Monocytes % (auto) 9.3 %; Neutrophils # (auto) 7.27 K/uL (1.4-6.5); Neutrophils % (auto) 74.5 %; Platelet Count 170 K/uL (130-400); RDW Coefficient of Variation 15.6 % (11.5-14.5); Red Blood Count 3.24 M/uL (4.2-5.4); White Blood Count 9.76 K/uL (4.8-10.8)
[2020-09-22] MEDS: INSULIN ASPART 100 UNITS/ML 3 ML PEN SC SCH ×4 (08:54→20:27)
[2020-09-22] MEDS: FLUTICASONE/VILANTEROL 100/25MCG 14 PUFFS/INHALER INH SCH (08:59)
[2020-09-22] MEDS: UMECLIDINIUM BROMIDE 62.5MCG/BLISTER 7 PUFFS/INHALER INH SCH (08:59)
[2020-09-22] MEDS: FAMOTIDINE 20 MG in SYRINGE 3 ML IV SCH ×2 (08:59→20:25)
[2020-09-22] MEDS: CALCIUM CARBONATE 1250MG TAB PO SCH (09:00)
[2020-09-22] MEDS: SUCRALFATE 1 GM TAB PO SCH ×4 (09:00→20:25)
[2020-09-22] MEDS: allopurinoL 100 MG TAB PO SCH (09:00)
[2020-09-22] MEDS: SACCHAROMYCES BOULARDII 250 MG CAP PO SCH ×2 (09:01→20:25)
[2020-09-22] MEDS: carvediloL 3.125 MG TAB PO SCH ×2 (09:01→20:25)
[2020-09-22] MEDS: TELMISARTAN 40 MG TAB PO SCH (09:01)
[2020-09-22] MEDS: ADVANCED PROBIOTIC 1250 MG CAPSULE PO SCH (09:01)
[2020-09-22] MEDS: APIXABAN 2.5 MG TAB PO SCH ×2 (09:02→20:24)
[2020-09-22] MEDS: PSYLLIUM 58.6% POWDER PACKET PO SCH ×2 (09:02→20:26)
[2020-09-22] MEDS: POTASSIUM CHLORIDE CRTAB 20 MEQ TABCR PO SCH ×2 (09:02→20:26)
[2020-09-22] MEDS: GABAPENTIN 600 MG TAB PO SCH ×2 (09:02→20:25)
--- NOTE | 2020-09-22 11:23 | Pharmacy Report ---
Glycemic Control Progress Note - Date of Service September 22, 2020 - Scope Glycemic Pharmacist consulted for glycemic control to write orders per [facility] inpatient glycemic control protocol. - Objective Accuchecks BSG(last 24 hours):: 09/21/20 09/21/20 09/21/20 12:10 17:14 20:41 POC Glucose 155 H 140 H 152 H 09/22/20 08:09 POC Glucose 138 H HbA1c:: Hemoglobin A1c 7.0 % (4.5-5.6) H 09/13/20 06:10 - Recent Pertinent Medications The patient is currently receiving: * Basal insulin: Lantus 8 units every 24 hours * Correctional Insulin: Novolog Correction per scale ACHS Goal Range: Low 110 mg/dL - High 140 mg/dL Correction Factor: 40 mg/dL/unit * Prandial insulin: Per carb ratio of 1 unit per 13 grams CHO consumed - Outpatient Anti-Diabetic Meds Toujeo 20-25 units HS Novolog 15-20 units with meals - Assessment & Plan ASSESSMENT: * See progress note from 09/13/2019 for more background info, in short: * Pt receiving SQ basal bolus insulin regimen for hyperglycemia secondary to baseline DM (outpatient regimen on hold). Patient currently on PO vancomycin and Zosyn. * Patient is currently receiving an average of 14 units of insulin per day * 8 units of basal insulin * 6 units of prandial/correctional insulin * BSGs ranging 140 - 159 mg/dl over the past 24hrs * Changes needed to insulin regimen: * AM Fasting BSG = 138 mg/dl. This is in goal range for patient based on inpatient targets and co-morbidities. Therefore Basal insulin will be continued. * Post-prandial BSGs are in range therefore no changes needed to CF/CR. * Total daily dose = ~15 units. This dosing is yielding adequate glycemic control. PLAN FOR INPATIENT GLYCEMIC CONTROL: * Continuing Lantus 8 units SQ HS * Continuing correction factor of 40 mg/dl/unit * Continuing carb ratio of 1 unit per 13 grams CHO consumed * Continuing goal range of Low 110 mg/dL - High 140 mg/dL RECOMMENDATIONS FOR DISCHARGE: * A1c 7% - goal <8% reasonable * Patient currently requiring significantly less insulin during hospital admission, as PO intake poor. Last couple of days only requiring 10-15 units total of insulin. Would consider insulin dosage reduction if oral intake does not improve by time of discharge * She does follow [facility] for diabetes management. Last visit 06/2020 - dosing adjusted to Toujeo 18-20 units, Novolog 12 units TIDM and was instructed to cut novolog by ~50% if not eating * If PO intake does not improve, could consider decreasing home Toujeo dose by at least ~30% (12 units daily) and if patient able, would favor using a low dose SSI vs a set number of units for novolog with meals Thank you.
--- NOTE | 2020-09-22 12:14 | Hospitalist Progress Note ---
Date of Service September 22, 2020 Assessment & Plan (1) Diverticulitis of sigmoid colon: Improving with intravenous Zosyn. Currently on full liquids. Advance to regular diet today, September 20. Upper abdominal pain unlikely to be from sigmoid colon - likely from gastric and/or duodenal issues. Will need colonoscopy in 6-8 weeks as outpatient with [facility]. Recommend EGD at that time also (2) Duodenitis: Recent CT with duodenitis. This may be cause of upper GI sx. Continue Pepcid and Carafate therapy. EGD at a later date along with colonoscopy. Lipase wnl . (3) Abnormal CT scan, sigmoid colon: 24 mm hypodense sigmoid lesion concerning for perisigmoid inflammatory mass versus mucosal/submucosal lesion. Needs colonoscopy after resolution of diverticulitis. (4) Dehydration: Resolved. (5) CAD (coronary artery disease): Mild non-obstructive CAD. Cont Coreg 3.125 mg BID, Eliquis 2.5mg BID, Simvastatin. (6) Pulmonary HTN: Estimated RVSP on Echocardiogram 03/05/2020 is 40 to [address] Little Normal RV systolic function. Continue treating underlying COPD/Asthma. Supplemental O2 qhs. Sats wnl in room air at rest. (7) COPD (chronic obstructive pulmonary disease): Without exacerbation. Cont usual inhalers. (8) Hypertension: Cont coreg. Was on hold since admission and will be restarted today, September 18. (9) Hyperlipidemia: Cont Simvastatin 40mg daily. (10) Atrial flutter: a flutter/fib cont coreg cont eliquis rates controlled (11) Diabetes mellitus, type 2: Most recent A1c 7.0%. Appreciate pharmacy glycemic recommendations. Controlled. (12) Chronic kidney disease, stage IV (severe): Baseline Cr 1.5 to 1.7. Follows with Dr. Gleason. Cr 1.6 today. BMP am. (13) Pulmonary edema: Iatrogenic due to recent IVF in setting of advanced CKD. Resolved with parenteral Lasix therapy. (14) DVT prophylaxis: eliquis BID Disposition: Eventual discharge to home with her sister. Continue PT, OT (15) Clostridium difficile diarrhea: Now on vancomycin therapy started 09/19, planning for 10days total Metamucil twice daily to add bulk and decrease frequency of loose stools Ongoing sx that are improving, but still difficult for pt to navigate without assistance Admission and Anticipated Discharge Date Admission Date: September 12, 2020 Subjective Pt states she again feels improved, but still not ready for home. She is having ongoing diarrhea, although it is getting less intense. She has ongoing abd pain and bloating, also improving. She felt she ate better today, but not as her usual. Pt denies fever, SOB, chest pain, n/v/c/d, LE pain or swelling. Review of Systems Review of Systems: Pertinent positives and negatives reviewed in HPI--all others negative Physical Exam Constitutional: WD/WN, vitals as above Eyes: normal visual avalos by confrontation and + anicteric sclerae Neck: normal visual inspection and trachea midline Respiratory: normal respiratory effort, lungs clear to auscultation Cardiovascular: Rate/Rhythm: regular rate and regular rhythm Gastrointestinal (Abdomen): Inspection/Auscultation: + abdomen distended Percussion/Palpation: abdomen soft; abdomen nontender Musculoskeletal: Head/Neck/Chest: normocephalic and head atraumatic Skin: no rashes, warm and dry Neurologic: awake; not confused Speech / Cognition: normal speech Psychiatric: A+Ox3, euthymic affect Results & Data Results & Data ([facility]) Vital Signs (Past 12 Hours) Vital Signs Temp Pulse Resp BP Pulse Ox 09/22/20 08:58 79 16 95 09/22/20 07:00 36.4 C L 59 L 16 128/77 96 PG Care Time/CCT Total # of Minutes Spent Total Time Spent with Patient: Total time spent is greater than 50% in coordination of care (as documented) at patient's floor/unit and/or counseling patient: Coding Level of Care Code 13215 Subseq Hosp Care Lvl 3 Diagnoses Diverticulitis of sigmoid colon K57.[address] scan, sigmoid colon R93.3 Dehydration E86.0 CAD (coronary artery disease) I25.10 Pulmonary HTN I27.20 COPD (chronic obstructive pulmonary disease) J44.9 Hypertension I10 Hyperlipidemia E78.5 Atrial flutter I48.92 Diabetes mellitus, type 2 E11.9 Chronic kidney disease, stage IV (severe) N18.4 Pulmonary edema J81.1 DVT prophylaxis Z29.9 Clostridium difficile diarrhea A04.72
[2020-09-22] MEDS: SIMVASTATIN 40 MG TAB PO SCH (20:25)
[2020-09-22] MEDS: INSULIN GLARGINE SOLOSTAR 100 UNITS/ML 3 ML PEN SC SCH (20:29)
[2020-09-22] MEDS: COUGH DROP (SUGAR FREE) LOZ 24 LOZ/1 BOX BUCCAL PRN (21:42)
[2020-09-23] MEDS: RASPBERRY SYRUP 5 ML UDP PO SCH ×4 (05:49→23:24)
[2020-09-23] MEDS: VANCOMYCIN HCL 125 MG/2.5ML SOLN PO SCH ×4 (05:49→23:25)
[2020-09-23] MEDS: PIPERACILLIN/TAZOBACTAM 3.375 GM in DEXTROSE 5% 100 ML IV SCH ×2 (05:49→13:00)
[2020-09-23 06:15] LABS: Basophils # (auto) 0.01 K/uL (0-0.2); Basophils % (auto) 0.1 %; Eosinophils # (auto) 0.33 K/uL (0-0.5); Eosinophils % (auto) 4.4 %; Hematocrit (blood only) 30.9 % (37-47); Hemoglobin 10.4 g/dL (12.0-16.0); Immature Granulocytes # (auto) 0.04 K/uL (0.00-0.02); Immature Granulocytes % (auto) 0.5 %; Lymphocytes # (auto) 1.11 K/uL (1.2-3.4); Lymphocytes % (auto) 14.8 %; Mean Corpuscular Hgb Conc 33.7 g/dL (32-36); Mean Corpuscular Volume 95.1 fL (80-100); Mean Platelet Volume 10.8 fL (7.4-10.4); Monocytes # (auto) 1.01 K/uL (0.11-0.59); Monocytes % (auto) 13.4 %; Neutrophils # (auto) 5.01 K/uL (1.4-6.5); Neutrophils % (auto) 66.8 %; Platelet Count 164 K/uL (130-400); RDW Coefficient of Variation 15.6 % (11.5-14.5); Red Blood Count 3.25 M/uL (4.2-5.4); White Blood Count 7.51 K/uL (4.8-10.8)
[2020-09-23 06:53] LABS: Creatinine Clr Calc Pharmacy 21.7 ml/min; Est GFR (African American) 34.8
[2020-09-23] MEDS: ADVANCED PROBIOTIC 1250 MG CAPSULE PO SCH (08:26)
[2020-09-23] MEDS: CALCIUM CARBONATE 1250MG TAB PO SCH (08:26)
[2020-09-23] MEDS: allopurinoL 100 MG TAB PO SCH (08:27)
[2020-09-23] MEDS: carvediloL 3.125 MG TAB PO SCH ×2 (08:27→20:15)
[2020-09-23] MEDS: SUCRALFATE 1 GM TAB PO SCH ×4 (08:27→20:15)
[2020-09-23] MEDS: APIXABAN 2.5 MG TAB PO SCH ×2 (08:28→20:16)
[2020-09-23] MEDS: POTASSIUM CHLORIDE CRTAB 20 MEQ TABCR PO SCH ×2 (08:28→20:16)
[2020-09-23] MEDS: GABAPENTIN 600 MG TAB PO SCH ×2 (08:28→20:15)
[2020-09-23] MEDS: SACCHAROMYCES BOULARDII 250 MG CAP PO SCH ×2 (08:28→20:15)
[2020-09-23] MEDS: PSYLLIUM 58.6% POWDER PACKET PO SCH ×2 (08:28→20:15)
[2020-09-23] MEDS: FLUTICASONE/VILANTEROL 100/25MCG 14 PUFFS/INHALER INH SCH (08:35)
[2020-09-23] MEDS: UMECLIDINIUM BROMIDE 62.5MCG/BLISTER 7 PUFFS/INHALER INH SCH (08:35)
[2020-09-23] MEDS: INSULIN ASPART 100 UNITS/ML 3 ML PEN SC SCH ×4 (08:38→21:21)
[2020-09-23] MEDS: COUGH DROP (SUGAR FREE) LOZ 24 LOZ/1 BOX BUCCAL PRN (08:39)
[2020-09-23] MEDS: TELMISARTAN 40 MG TAB PO SCH (08:44)
[2020-09-23] MEDS: FAMOTIDINE 20 MG in SYRINGE 3 ML IV SCH (09:10)
--- NOTE | 2020-09-23 15:11 | Hospitalist Progress Note ---
Date of Service September 23, 2020 Assessment & Plan (1) Diverticulitis of sigmoid colon: Improving with intravenous Zosyn. Currently on full liquids. Advance to regular diet today, September 20. Upper abdominal pain unlikely to be from sigmoid colon - likely from gastric and/or duodenal issues. Will need colonoscopy in 6-8 weeks as outpatient with [facility]. Recommend EGD at that time also Last day of zosyn is 09/23 (2) Duodenitis: Recent CT with duodenitis. This may be cause of upper GI sx. Continue Pepcid and Carafate therapy. EGD at a later date along with colonoscopy. Lipase wnl . (3) Abnormal CT scan, sigmoid colon: 24 mm hypodense sigmoid lesion concerning for perisigmoid inflammatory mass versus mucosal/submucosal lesion. Needs colonoscopy after resolution of diverticulitis. (4) Dehydration: Resolved. (5) CAD (coronary artery disease): Mild non-obstructive CAD. Cont Coreg 3.125 mg BID, Eliquis 2.5mg BID, Simvastatin. (6) Pulmonary HTN: Estimated RVSP on Echocardiogram 03/05/2020 is 40 to [address] Little Normal RV systolic function. Continue treating underlying COPD/Asthma. Supplemental O2 qhs. Sats wnl in room air at rest. (7) COPD (chronic obstructive pulmonary disease): Without exacerbation. Cont usual inhalers. (8) Hypertension: Cont coreg. Was on hold since admission and will be restarted today, September 18. (9) Hyperlipidemia: Cont Simvastatin 40mg daily. (10) Atrial flutter: a flutter/fib cont coreg cont eliquis rates controlled (11) Diabetes mellitus, type 2: Most recent A1c 7.0%. Appreciate pharmacy glycemic recommendations. Controlled. (12) Chronic kidney disease, stage IV (severe): Baseline Cr 1.5 to 1.7. Follows with Dr. Gleason. Cr 1.6 today. BMP am. (13) Pulmonary edema: Iatrogenic due to recent IVF in setting of advanced CKD. Resolved with parenteral Lasix therapy. (14) DVT prophylaxis: eliquis BID Disposition: Eventual discharge to home with her sister. Continue PT, OT (15) Clostridium difficile diarrhea: Now on vancomycin therapy started 09/19, planning for 10days total Metamucil twice daily to add bulk and decrease frequency of loose stools Ongoing sx that are improving, but still difficult for pt to navigate without assistance Admission and Anticipated Discharge Date Admission Date: September 12, 2020 Subjective Pt with ongoing loose stools, although the frequency is improving. Less loose as well. Mild cramping abd pain at times. Bloating still present, but also improving. Tolerating PO. Did not sleep well last night and therefor does not feel as good today as prior. She is uncertain about d/c to home as she went home "too soon" during a prior admission and ended up having to be readmitted. Pt denies fever, SOB, chest pain, n/v, LE pain or swelling. Review of Systems Review of Systems: Pertinent positives and negatives reviewed in HPI--all others negative Physical Exam Constitutional: WD/WN, vitals as above Eyes: normal visual avalos by confrontation and + anicteric sclerae Neck: normal visual inspection and trachea midline Respiratory: normal respiratory effort, lungs clear to auscultation Cardiovascular: Rate/Rhythm: regular rate and regular rhythm Gastrointestinal (Abdomen): Inspection/Auscultation: + abdomen distended (improving) Percussion/Palpation: abdomen soft; abdomen nontender Musculoskeletal: Head/Neck/Chest: normocephalic and head atraumatic Skin: no rashes, warm and dry Neurologic: awake; not confused Speech / Cognition: normal speech Psychiatric: A+Ox3, euthymic affect Results & Data Results & Data ([facility]) Vital Signs (Past 12 Hours) Vital Signs Temp Pulse Resp BP Pulse Ox 09/23/20 07:35 36.9 C 69 18 133/81 95 PG Care Time/CCT Total # of Minutes Spent Total Time Spent with Patient: Total time spent is greater than 50% in coordination of care (as documented) at patient's floor/unit and/or counseling patient: Coding Level of Care Code 70103 Subseq Hosp Care Lvl 3 Diagnoses Diverticulitis of sigmoid colon K57.[address] scan, sigmoid colon R93.3 Dehydration E86.0 CAD (coronary artery disease) I25.10 Pulmonary HTN I27.20 COPD (chronic obstructive pulmonary disease) J44.9 Hypertension I10 Hyperlipidemia E78.5 Atrial flutter I48.92 Diabetes mellitus, type 2 E11.9 Chronic kidney disease, stage IV (severe) N18.4 Pulmonary edema J81.1 DVT prophylaxis Z29.9 Clostridium difficile diarrhea A04.72
[2020-09-23] MEDS: SIMVASTATIN 40 MG TAB PO SCH (20:16)
[2020-09-23] MEDS: INSULIN GLARGINE SOLOSTAR 100 UNITS/ML 3 ML PEN SC SCH (21:20)
[2020-09-24] MEDS: VANCOMYCIN HCL 125 MG/2.5ML SOLN PO SCH ×2 (05:51→12:06)
[2020-09-24] MEDS: RASPBERRY SYRUP 5 ML UDP PO SCH ×2 (05:51→12:06)
[2020-09-24 07:09] LABS: Creatinine Clr Calc Pharmacy 23.5 ml/min; Est GFR (African American) 38.3; Est GFR (Non-African American) 33.1
[2020-09-24] MEDS: SUCRALFATE 1 GM TAB PO SCH ×2 (08:39→12:44)
[2020-09-24] MEDS: FLUTICASONE/VILANTEROL 100/25MCG 14 PUFFS/INHALER INH SCH (08:39)
[2020-09-24] MEDS: carvediloL 3.125 MG TAB PO SCH (08:40)
[2020-09-24] MEDS: APIXABAN 2.5 MG TAB PO SCH (08:40)
[2020-09-24] MEDS: SACCHAROMYCES BOULARDII 250 MG CAP PO SCH (08:40)
[2020-09-24] MEDS: UMECLIDINIUM BROMIDE 62.5MCG/BLISTER 7 PUFFS/INHALER INH SCH (08:40)
[2020-09-24] MEDS: GABAPENTIN 600 MG TAB PO SCH (08:40)
[2020-09-24] MEDS: POTASSIUM CHLORIDE CRTAB 20 MEQ TABCR PO SCH (08:41)
[2020-09-24] MEDS: PSYLLIUM 58.6% POWDER PACKET PO SCH (08:41)
[2020-09-24] MEDS: INSULIN ASPART 100 UNITS/ML 3 ML PEN SC SCH ×2 (08:46→12:46)
[2020-09-24] MEDS: CALCIUM CARBONATE 1250MG TAB PO SCH (08:54)
[2020-09-24] MEDS: allopurinoL 100 MG TAB PO SCH (08:54)
[2020-09-24] MEDS: ADVANCED PROBIOTIC 1250 MG CAPSULE PO SCH (08:55)
[2020-09-24] MEDS: TELMISARTAN 40 MG TAB PO SCH (08:56)
[2020-09-24] MEDS ORDERED: FAMOTIDINE 20 MG TAB PO SCH (09:00)
[2020-09-24 11:56] LABS: Calcium 9.3 mg/dl (8.5-10.1); Creatinine Clr Calc Pharmacy 22.7 ml/min; Est GFR (African American) 36.8; Est GFR (Non-African American) 31.7; Potassium 4.7 mmol/L (3.5-5.1)
--- NOTE | 2020-09-24 14:06 | Hospitalist Progress Note ---
Date of Service September 24, 2020 Assessment & Plan (1) Diverticulitis of sigmoid colon: 85-year-old female with a history of Pulmonary Hypertension (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 Unfortunately she is experiencing worsening abdominal pain, nausea without vomiting, decreased appetite , and diffuse abdominal bloating. Patient has had abdominal pain for the past week prior to admission and prior to that she took a course of Cipro for a suspected UTI. She initially presented to the ER on 09/08/2020 complaining of abdominal pain and constipation. Supportive treatment and advised return if symptoms persisted. She did begin moving her bowels 09/08/20 into 09/09/20, but her abdominal pain persisted. Review of her CT Scan on 09/09/20 showed finding consistent with an Acute Sigmoid Diverticulitis. She was started on Augmentin [address] Scan 09/12/2020 shows: 1. Extensive sigmoid diverticulosis. 2. Mild perisigmoid stranding, and a stable 24 mm hypodense sigmoid lesion. 3. This could represent a perisigmoid inflammatory mass versus mucosal/submucosal lesion. 4. Follow-up colonoscopy is recommended. * Improving with intravenous Zosyn. * Completed course on 09/23 * Has been tolerating regular diet since 09/20 * On pepcid (given duodenitis on imaging) and initially placed on protonix but was discontinued * Given increase in reflux symptoms, restarted on Protonix 40mg daily to be continued at discharge * Cdiff initially tested 09/15 and was negative, however rechecked on 09/18 for increased diarrhea and +CDIFF * Placed on PO Vancomycin 09/19 and need for continuation for 10 days (currently on day 6 of therapy) * Added cholestyramine for diarrhea -- can continue on discharge * To have follow up c-scope in 6-8 weeks outpatient with [facility] for evaluation of mass and would recommend EGD at that time as well (2) Clostridium difficile diarrhea: * See above, secondary to abx therapy for acute diverticulitis * Now on vancomycin therapy started 09/19, planning for 10days total (on day 6 of therapy) * Metamucil twice daily to add bulk and decrease frequency of loose stools * Added cholestyramine -- can continue at discharge * Improving (3) Duodenitis: * Recent CT with duodenitis. * This may be cause of upper GI sx. Continue Pepcid and Carafate therapy. * Added back on protonix -- as protonix increase risk of cdiff, however given already treating and with symptoms of reflux, would continue PPI * EGD at a later date along with colonoscopy. Lipase wnl . (4) Abnormal CT scan, sigmoid colon: * 24 mm hypodense sigmoid lesion concerning for perisigmoid inflammatory mass versus mucosal/submucosal lesion. * Needs colonoscopy after resolution of diverticulitis. (5) Dehydration: * Resolved. (6) CAD (coronary artery disease): * Mild non-obstructive CAD. * Cont Coreg 3.125 mg BID, Eliquis 2.5mg BID, Simvastatin. (7) Pulmonary HTN: * Estimated RVSP on Echocardiogram 03/05/2020 is 40 to [address] Little * Normal RV systolic function. * Continue treating underlying COPD/Asthma. * Supplemental O2 qhs. * Sats wnl in room air at rest. (8) COPD (chronic obstructive pulmonary disease): * Without exacerbation. * Cont usual inhalers. * 96% on RA (9) Hypertension: * Cont coreg. Was on hold since admission and restarted on 09/18 * BP stable at 131/76 (10) Hyperlipidemia: * Cont Simvastatin 40mg daily. (11) Atrial flutter: * a flutter/fib * cont coreg * cont eliquis * rates controlled (12) Diabetes mellitus, type 2: * Most recent A1c 7.0%. * Appreciate pharmacy glycemic recommendations. * Controlled. (13) Chronic kidney disease, stage IV (severe): * Baseline Cr 1.5 to 1.7. * Follows with Dr. Gleason. * Cr stable at 1.48 (14) Pulmonary edema: * Iatrogenic due to recent IVF in setting of advanced CKD. * Resolved with parenteral Lasix therapy. (15) DVT prophylaxis: * eliquis BID Disposition: possible d/c home this evening if able to get ahold of daughter If not, will plan on d/c tomorrow Admission and Anticipated Discharge Date Admission Date: September 12, 2020 Subjective Patient seen this afternoon. Feeling well except has some reflux. Discussed adding back on protonix. She states she does have pepcid at home. Discussed EGD at same time as c-scope for follow up given duodenitis on imaging. Patient states 3-4 loose stools this morning but overall improving. Feeling comfortable for discharge today but has not been able to get ahold of her daughter. Possible discharge this evening if able, otherwise will d/c in AM. No fever, chill,chest pain, shortness of breath, nausea, vomiting or dysuria reported. Tolerated diet without issue. Review of Systems Review of Systems: All systems reviewed & are unremarkable except as noted in HPI & below Physical Exam Constitutional: well developed, well nourished, cooperative and comfortable; no acute distress Eyes: + anicteric sclerae and PERRL Neck: normal visual inspection Respiratory: normal respiratory effort, lungs clear to auscultation Cardiovascular: Rate/Rhythm: + irregularly irregular Heart Sounds: + murmur (systolic) Gastrointestinal (Abdomen): Inspection/Auscultation: + abdomen distended (less) and normal bowel sounds Percussion/Palpation: + abdomen tender (epigastric) and abdomen soft; no guarding and abdomen not rigid Musculoskeletal: Head/Neck/Chest: normocephalic and head atraumatic Skin: warm, dry Neurologic: PERRL, EOMI, accommodation nl, no face palsy, no dysarthria Psychiatric: Orientation: alert and oriented x 3 Lymphatic: no cervical or axillary lymphadenopathy Results & Data Results & Data ([facility]) Vital Signs (Past 12 Hours) Vital Signs Temp Pulse Resp BP Pulse Ox 09/24/20 07:19 36.5 C 61 16 131/76 96 Laboratory Results 09/24/20 09/24/20 09/24/20 Range/Units 11:55 08:12 06:00 Sodium 138 (136-145) mmol/L Potassium 4.7 (3.5-5.1) mmol/L Chloride 108 H (98-107) mmol/L Carbon Dioxide 22 (21-32) mmol/L Anion Gap 7.0 (3-11) BUN 19 H (7-18) mg/dl Creatinine 1.48 H (0.6-1.2) mg/dl Est Cr Clr Drug Dosing 22.7 ml/min Est GFR ( Amer) 36.8 Est GFR (Non-Af Amer) 31.7 BUN/Creatinine Ratio 13.0 (10-20) Glucose 108 H (70-99) mg/dl POC Glucose 157 H 122 H (70-99) mg/dl Calcium 9.3 (8.5-10.1) mg/dl 09/24/20 09/23/20 09/23/20 Range/Units 05:51 20:36 17:02 Sodium (136-145) mmol/L Potassium (3.5-5.1) mmol/L Chloride (98-107) mmol/L Carbon Dioxide (21-32) mmol/L Anion Gap (3-11) BUN (7-18) mg/dl Creatinine 1.43 H (0.6-1.2) mg/dl Est Cr Clr Drug Dosing 23.5 ml/min Est GFR ( Amer) 38.3 Est GFR (Non-Af Amer) 33.1 BUN/Creatinine Ratio (10-20) Glucose (70-99) mg/dl POC Glucose 130 H 175 H (70-99) mg/dl Calcium (8.5-10.1) mg/dl PG Care Time/CCT Total # of Minutes Spent Total Time Spent with Patient: Total time spent is greater than 50% in coordination of care (as documented) at patient's floor/unit and/or counseling patient: Coding Diagnoses Diverticulitis of sigmoid colon K57.32 Clostridium difficile diarrhea A04.[address] scan, sigmoid colon R93.3 Dehydration E86.0 CAD (coronary artery disease) I25.10 Pulmonary HTN I27.20 COPD (chronic obstructive pulmonary disease) J44.9 Hypertension I10 Hyperlipidemia E78.5 Atrial flutter I48.92 Diabetes mellitus, type 2 E11.9 Chronic kidney disease, stage IV (severe) N18.4 Pulmonary edema J81.1 DVT prophylaxis Z29.9
--- NOTE | 2020-09-24 14:22 | Discharge Summary ---
Date of Service September 24, 2020 Admission HPI Per Admitting Provider Ms. 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 Patient has had abdominal pain for the past week, and prior to that she took a course of Cipro for a suspected UTI. She initially presented to the ER on 09/08/2020 complaining of abdominal pain and constipation. Supportive treatment and advised return if symptoms persisted. She did begin moving her bowels into 09/09/20, but her abdominal pain persisted. Review of her CT Scan on 09/09/20 showed finding consistent with an Acute Sigmoid Diverticulitis. She was started on Augmentin 875 mg b.i.d. which she has taken for 3 days now -- but unfortunately she is experiencing worsening abdominal pain, nausea without vomiting, decreased appetite (although has eaten breakfast every morning except for today), and diffuse abdominal bloating. She denies any fevers, although she has had some chills. She denies any vomiting, melena, hematochezia, or any hematemesis. No headache or stiff neck. No arthralgias or myalgias. She denies any cardiopulmonary symptoms. She is in rate controlled and asymptomatic Atrial Flutter. Patient offers no other complaints. She is compliant with her medications. Admission Exam Per Admitting Provider GENERAL: Patient in no acute distress. HEENT: Head is atraumatic, normocephalic. EOM's intact. Sclerae are anicteric. Facies symmetric. No perioral cyanosis. NECK: No JVD. JVP is at the level of the clavicle sitting upright. Carotid upstrokes are + 2 bilaterally. No bruits are noted. CHEST/LUNGS: Mildly diminished breath sounds throughout, otherwise clear. No wheezes or rales. CVS: S1 and S2 are slightly irregular at a rate of approximately 80 bpm. Grade 1/6 basal systolic murmur heard best at the right 2nd intercostal space. No diastolic murmurs appreciated. No gallops or rubs. PMI is nondisplaced. No lifts, heaves, or thrills. No abdominal aortic or renal bruits. ABDOMINAL EXAM: Abdomen appears distended. Bowel sounds are present. There is tenderness to deep palpation in the left lower quadrant and left mid abdomen. EXTREMITIES: No clubbing or cyanosis. Trace pretibial edema bilaterally. Intact radial pulses bilaterally. NEUROLOGIC EXAM: Patient is awake, alert, and oriented. Pleasant and cooperative. Answers questions appropriately. Speech is clear. Normal movement in all 4 extremities. Gait pattern was not assessed. Principal Diagnosis Acute Sigmoid Diverticulitis, c.diff Discharge Exam Constitutional well developed, well nourished, cooperative and comfortable; no acute distress Eyes + anicteric sclerae and PERRL ENMT mmm Neck normal visual inspection Respiratory normal respiratory effort, lungs clear to auscultation Cardiovascular Rate/Rhythm: + irregularly irregular Heart Sounds: + murmur (systolic) Gastrointestinal (Abdomen) Inspection/Auscultation: + abdomen distended (less) and normal bowel sounds Percussion/Palpation: + abdomen tender (epigastric) and abdomen soft; no guarding and abdomen not rigid Musculoskeletal Head/Neck/Chest: normocephalic and head atraumatic Neurologic PERRL, EOMI, accommodation nl, no face palsy, no dysarthria Psychiatric Orientation: alert and oriented x 3 Lymphatic no cervical or axillary lymphadenopathy Discharge Data Allergies Allergy/AdvReac Type Severity Reaction Status Date / Time Sulfa (Sulfonamide Allergy Severe ANAPHYLAXIS; Verified 09/12/20 12:36 Antibiotics) TAKES AMARYL W/O REACTION nystatin Allergy Unknown Wheezing Verified 09/12/20 12:36 thyroid, pork Allergy Unknown "ALL Verified 09/12/20 12:36 THYROID AGENTS" allopurinol Allergy Unknown Verified 09/12/20 12:36 cephalexin [From Keflex] Allergy Headahce; Verified 09/12/20 12:36 Nausea; Rash Cephalosporins AdvReac Intermediate KEFLEX Verified 09/12/20 12:36 ALLERGY -NAUSEA Consultations 09/12/20 13:44 ED Decision to Admit Stat 09/12/20 19:25 Consult General Surgery Routine 09/13/20 09:33 Consult Gastroenterology Routine Ordered Studies 09/12/20 11:39 CT abd pelvis IV con only Stat 09/13/20 17:39 US renal/blad retro comp Routine Hospital Course (1) Diverticulitis of sigmoid colon: 85-year-old female with a history of Pulmonary Hypertension (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 Unfortunately she is experiencing worsening abdominal pain, nausea without vomiting, decreased appetite , and diffuse abdominal bloating. Patient has had abdominal pain for the past week prior to admission and prior to that she took a course of Cipro for a suspected UTI. She initially presented to the ER on 09/08/2020 complaining of abdominal pain and constipation. Supportive treatment and advised return if symptoms persisted. She did begin moving her bowels 09/08/20 into 09/09/20, but her abdominal pain persisted. Review of her CT Scan on 09/09/20 showed finding consistent with an Acute Sigmoid Diverticulitis. She was started on Augmentin [address] Scan 09/12/2020 shows: 1. Extensive sigmoid diverticulosis. 2. Mild perisigmoid stranding, and a stable 24 mm hypodense sigmoid lesion. 3. This could represent a perisigmoid inflammatory mass versus mucosal/submucosal lesion. 4. Follow-up colonoscopy is recommended. * Improving with intravenous Zosyn. * Completed course on 09/23 * Has been tolerating regular diet since 09/20 * On pepcid (given duodenitis on imaging) and initially placed on protonix but was discontinued * Given increase in reflux symptoms, restarted on Protonix 40mg daily to be continued at discharge * Cdiff initially tested 09/15 and was negative, however rechecked on 09/18 for increased diarrhea and +CDIFF * Placed on PO Vancomycin 09/19 and need for continuation for 10 days (currently on day 6 of therapy) * Added cholestyramine for diarrhea -- continued on discharge * To have follow up c-scope in 6-8 weeks outpatient with [facility] for evaluation of mass and would recommend EGD at that time as well. * --Arranged appointment November with Dr. Goodwin. (2) Clostridium difficile diarrhea: * See above, secondary to abx therapy for acute diverticulitis * Now on vancomycin therapy started 09/19, planning for 10days total (on day 6 of therapy) * Metamucil twice daily to add bulk and decrease frequency of loose stools -- discontinued given admitted with diverticulitis and to maintain low fiber diet for next 1-2 weeks * Added cholestyramine -- continued at discharge * Improving (3) Duodenitis: * Recent CT with duodenitis. * This may be cause of upper GI sx. Received Pepcid and Carafate therapy. * Added back on protonix -- protonix increase risk of cdiff, however given already treating and with symptoms of reflux. Continued protonix 40mg daily at discharge * EGD at a later date along with colonoscopy. Lipase wnl . (4) Abnormal CT scan, sigmoid colon: * 24 mm hypodense sigmoid lesion concerning for perisigmoid inflammatory mass versus mucosal/submucosal lesion. * Needs colonoscopy after resolution of diverticulitis as above (5) Dehydration: * Resolved. (6) CAD (coronary artery disease): * Mild non-obstructive CAD. * Continued Coreg 3.125 mg BID, Eliquis 2.5mg BID, telmisartan, Simvastatin. (7) Pulmonary HTN: * Estimated RVSP on Echocardiogram 03/05/2020 is 40 to [address] Little * Normal RV systolic function. * Supplemental O2 qhs. * Sats wnl 96% on RA (8) COPD (chronic obstructive pulmonary disease): * Without exacerbation. * Continued usual inhalers. * 96% on RA (9) Hypertension: * Cont coreg. Was on hold since admission and restarted on 2/ * BP remained stable, currently 131/76 (10) Hyperlipidemia: * Continued Simvastatin 40mg daily. (11) Atrial flutter: * a flutter/fib rate controlled * cont coreg, eliquis (12) Diabetes mellitus, type 2: * Most recent A1c 7.0%. * Appreciate pharmacy glycemic recommendations. * Controlled. * BSGs acceptable * Resume home medications at discharge (13) Chronic kidney disease, stage IV (severe): * Baseline Cr 1.5 to 1.7. * Follows with Dr. Gleason. * Cr stable at 1.48 * Of note, was to have renal US done for Dr. Peña as outpatient * --> Performed while inpatient which showed 1.6cm lesion (prior hx [id number] R lesion) within midpole of right kidney, suggestive of cyst however exam mildly compromised by suboptimal penetration. Echogenic kidneys with moderate renal cortical thinning * Rec follow up outpatient with Dr. Peña for continued monitoring/ref if warranted (14) Pulmonary edema: * Iatrogenic due to recent IVF in setting of advanced CKD. * Resolved with parenteral Lasix therapy. (15) DVT prophylaxis: * eliquis BID PT/OT with recommendations for return home at discharge. Discharge home this evening with sister planned Total Time Total Time Spent Total Time Spent (In Minutes): 70 Discharge Plan Discharge Items Patient Disposition: Home - Self-Care Reason For Visit: SIGMOID DIVERTICULITIS Discharge Diagnosis: Sigmoid Diverticulitis, C. diff Condition on Discharge: Fair Goals: You have been hospitalized for an acute medical problem. During your stay at [facility], we have made an effort to correct the problem that brought you to the hospital while keeping you as comfortable as possible. Medications were used to bring your condition under control and your discharge instructions will include directions for any medications you should take after leaving the hospital. Please make sure you see your Primary Care Provider as part of your follow up plan. Activity: Resume your previous activity Non-emergency contact: Primary Care Provider and Delivery Analyst Call non-emergency contact if: you have any medication questions, your symptoms worsen and your pain is not controlled Follow-up/Referrals: Jeyson Peña MD [Primary Care Provider] - 10/18/20 11:15 am Kp Goodwin DO [Physician] - 11/14/20 10:30 am () Diet: Carb Consistent or DM2, Heart Healthy and Low Fiber Addtl Attending Provider Instructions: You have been hospitalized for abdominal pain and found to have acute diverticulitis. You were evaluated by GI (gastroenterology) and general surgery and were treated conservatively with antibiotics and bowel rest. You completed the course of IV antibiotics for the diverticulitis, however there is a suspicious lesion in your sigmoid colon that will need further evaluation with a colonoscopy with Dr. Goodwin in the next 6 weeks. Unfortunately, antibiotics can lead to an infection called c.diff. You were tested initially when diarrhea occurred and this was negative. Repeat testing on the 3rd was positive and you were started on oral vancomycin. This medication is taken four times daily for a total of 10 days. You are currently on day 6 of treatment and will need four and a half days to complete this course (18 more tablets). On imaging, as discussed, you did have some inflammation in the upper part of your intestines and were initially placed on Protonix as you had been on in the past. This medication has been restarted (you had not received for a couple of days) and will be continued as 40mg daily at discharge to help with symptom control. you can continue to utilize Pepcid daily as well for further control. Regarding the diarrhea, you have been started and sent a prescription for cholestyramine that will help to slow the diarrhea. You can also utilize over the counter Metamucil to help bulk your stools in the future, but it will be important to stick with low fiber for the next 1-2 weeks for the diverticulitis. Please follow up with your PCP and GI in the upcoming weeks to monitor your progress. Please return to the emergency department with any worsening abdominal pain, increased diarrhea, fever, inability to keep up with oral intake, or for any other symptoms that are concerning for you. It has been a pleasure being a part of the medical team providing for you while you have been in the hospital. Take care! Pending Studies at Discharge: No Stand-Alone Forms: My [facility] Medications and DC Order Prescriptions: New Cholestyramine Light 4 gram Powder In Packet 4 g PO BID 14 Days Qty: 60 RF: 0 pantoprazole 40 mg Tablet,Delayed Release (Dr/Ec) 40 mg PO QAM 30 Days Qty: 30 RF: 0 Advanced Probiotic 625 mg (10 billion cell) Capsule 2 cap PO DAILY 10 Days Qty: 20 RF: 0 vancomycin 125 mg capsule 125 mg PO Q6H 5 Days Qty: 18 RF: 0 Continued Novolog Flexpen U-100 Insulin 100 unit/mL (3 mL) insulin pen See Rx Instructions SUBCUT .COMPLEX Qty: 60 RF: 3 Toujeo SoloStar U-300 Insulin 300 unit/mL (1.5 mL) insulin pen See Rx Instructions SUBCUT HS Qty: 9 RF: 3 simvastatin 40 mg tablet 40 mg PO HS Qty: 90 RF: 3 telmisartan 40 mg tablet 40 mg PO DAILY Qty: 90 RF: 3 Eliquis 2.5 mg tablet 2.5 mg PO BID Qty: 180 RF: 3 famotidine [Acid Architectural Practice Manager (famotidine)] 20 mg tablet 20 mg PO DAILY Qty: 30 RF: 5 (DME) pen needle, diabetic [BD Ultra-Fine Vielka Pen Needle] 32 gauge x 5/32" needle See Dose Instructions .ROUTE .MEDSUPPLY Qty: 400 RF: 3 (DME) nebulizers misc See Rx Instructions .ROUTE .MEDSUPPLY Qty: 1 RF: 0 (DME) lancets [OneTouch Delica Lancets] 33 gauge misc See Rx Instructions .ROUTE .MEDSUPPLY Qty: 400 RF: 3 (DME) OneTouch Ultra Blue Test Strip Strip See Dose Instructions .ROUTE .MEDSUPPLY Qty: 400 RF: 3 calcium carbonate [Calcium 600] 600 mg calcium (1,500 mg) tablet 600 mg PO DAILY Qty: 90 RF: 0 albuterol sulfate 90 mcg/actuation aerosol powdr breath activated 2 inh INHALATION QID PRN (Reason: Wheezing) Qty: 1 RF: 5 budesonide-formoterol [Symbicort] 160-4.5 mcg/actuation HFA aerosol inhaler 2 puff inhalation BID Qty: 10.2 RF: 5 Spiriva Respimat 2.5 mcg/actuation mist 2 inh inhalation QAM Qty: 4 RF: 5 (DME) TechLITE Lancets 25 gauge misc See Dose Instructions .ROUTE .MEDSUPPLY Qty: 100 RF: 0 levalbuterol HCl 1.25 mg/3 mL solution for nebulization 1.25 mg INH Q4H PRN (Reason: shortness of breath or wheezing) Qty: 90 RF: 3 gabapentin 600 mg tablet 600 mg PO BID RF: 0 glucosamine-chondroitin [Osteo Bi-Flex] 250-200 mg Tablet 2 tab PO BID RF: 0 acetaminophen [Acetaminophen Extra Strength] 500 mg tablet 500 mg PO BID PRN (Reason: Pain) RF: 0 ferrous sulfate 325 mg (65 mg iron) tablet 325 mg PO DAILY RF: 0 Saccharomyces boulardii [Florastor] 250 mg capsule 250 mg PO BID Qty: 20 RF: 0 furosemide [Lasix] 40 mg tablet 0 mg PO Q OTHER DAY RF: 0 allopurinol 100 mg tablet 0 mg PO QAM RF: 0 carvedilol 3.125 mg tablet 0 mg PO BID RF: 0 Discontinued amoxicillin-pot clavulanate [Augmentin] 500-125 mg tablet 1 tab PO BID Qty: 20 RF: 0 Discharge Orders: Discharge Order (Routine); Ordered 09/24/20 Ordered By: Cecilia Banerjee/Other Patient Handouts: Managing Type 2 Diabetes, Discharge Instructions for ..., ED Diverticulitis Admission Data Admit Date/Time: 09/12/20 15:44 Attending Provider: Fay Celeste Admit Provider: Alejandro Delgado Primary Care Provider: Jeyson Peña Other Providers: Alejandro Delgado ; Joel Akbar ; Surendra Thomas ; Carson Parks ; Dada Ratliff Jr ; Faizan Bonilla ; Tushar Kennedy ; Vee Mccracken ; Romel Viramontes ; Sky Perez ; Kp Goodwin ; Clovis Moore Other Interventions: Discharge Summary Assessment (RN) Last Done: 09/24/20 14:37 Supervising Physician Co-Signing Physician Notes PA Supervision Note: I personally saw and examined the patient. I verified all zhao points and agree with MAUREEN Castañeda with the following exceptions and/or additions: Pt feeling better, had 3 loose BMs today, nonbloody. Has some indigestion and only has mild LLQ pain when palpated. Is eating and dirnking, ready for discharge VSS NAD< AAOx3 irreg irreg, normal rate CTAB now cr Abd +BS soft mild TTP in LLQ without guarding or rebound, no TTP elsewhere Ext no edema 85 yo female with history as above, here with acute sigmoid diverticulitis, sigmoid colon possible mass, and developed C. doff diarrhea secondary to abx use. Improving all around Plan as above Coding Level of Care Code D/C Day Management >30 mins Diagnoses Diverticulitis of sigmoid colon K57.32 Clostridium difficile diarrhea A04.[address] scan, sigmoid colon R93.3 Dehydration E86.0 CAD (coronary artery disease) I25.10 Pulmonary HTN I27.20 COPD (chronic obstructive pulmonary disease) J44.9 Hypertension I10 Hyperlipidemia E78.5 Atrial flutter I48.92 Diabetes mellitus, type 2 E11.9 Chronic kidney disease, stage IV (severe) N18.4 Pulmonary edema J81.1 DVT prophylaxis Z29.9
[2020-09-24] MEDS ORDERED: PANTOprazole 40 MG TAB PO SCH (14:30)
[2020-09-24] MEDS ORDERED: CHOLESTYRAMINE LIGHT 4 GM PKT PO SCH (22:00)
== END 2020-09-24 16:36 | disposition home or self-care (01) ==
LOC: ED 11:04 → OBSVTOIN 15:44 → SUATTDRO 15:44 → 3W 15:44 → INTOOBSV 15:44 → 3W 18:24

== ENCOUNTER 2021-09-18 06:17 | Observation (INO) ==
[2021-09-18] MEDS ORDERED: SODIUM CHLORIDE 0.9% 500 ML IV STA (06:47)
--- NOTE | 2021-09-18 07:18 | Emergency Department Note ---
Impression & Plan Nausea, Acute upper abdominal pain, Decreased oral intake, Chronic kidney disease, stage IV (severe) ED Provider Note Provider: Lew Lynch MD DATE OF SERVICE: 09/18/2021 CHIEF COMPLAINT: Upper abdominal pain, nausea HISTORY OF PRESENT ILLNESS: Patient is a 86-year-old female with multiple chronic medical problems including pulmonary hypertension intermittently on home oxygen, atrial fibrillation with history of anticoagulation on Eliquis, CKD, CAD, hypertension, and diabetes presenting here today reporting over approximately the past 3 weeks has been experiencing some upper abdominal discomfort. She states she been having some bloating. Reports that she has had some episodes of nausea towards the beginning and more recently overnight. She states she is not been eating or drinking that well and thus presents here today. Has been following extensively in the outpatient setting seen by both her primary doctor's office as well as GI. Had an ultrasound the right upper quadrant without findings as well as a CT scan on Wednesday without significant findings. Patient relates that GI was planning for an EGD this coming Wednesday for further evaluation as there was no clear answers for her pain. Describes pain intermittently in the upper abdomen and intermittently in the right upper quadrant epigastrium occasionally some radiation to the right back just below the shoulder blade. Patient states again she feels a bit bloated in the abdomen. After the CT scan with oral contrast had some diarrhea 2 days ago and a more firm bowel movement this morning. No blood reported with any of this. Denies vomiting overnight but had vomiting at the very beginning of this when it came on somewhat gradually several weeks ago. No other sick contacts reported. No history of similar. Patient denies worsening shortness of breath or significant leg swelling. Patient states intermittent compliance with her home oxygen. Patient states again now she is not able to eat or drink much and was told she may be little bit dehydrated and continues to have symptoms so thus presents here today. Patient states this notes feels similar to prior episode of diverticulitis. REVIEW OF SYSTEMS: A total of 10 review of systems was obtained and negative except as stated above in the HPI. PAST MEDICAL HISTORY: As noted above MEDICATIONS: Reviewed home medications SOCIAL HISTORY: , lives at home PHYSICAL EXAM: GENERAL: alert and oriented in no acute distress on stretcher Head: normocephalic and atraumatic EYES: No injection, discharge or icterus. NECK: Trachea midline. ENT: Mucous membranes pink and moist. LUNGS: Airway patent. No retractions. Breath sounds clear with good air entry bilaterally. HEART: Regular rate and rhythm. No chest wall tenderness ABDOMEN: Soft some mild epigastric and right upper quadrant tenderness. No guarding. No peritonitis. SKIN: Acyanotic, warm, dry, without rashes EXTREMITIES: Without swelling, tenderness or deformity NEUROLOGICAL: No focal deficits. No aphasia. No facial droop or slurred speech. EK bpm atrial fibrillation. Some baseline artifact is noted as well. No clear ST segment elevation with some nonspecific T wave changes. CONTINUOUS CARDIAC MONITORING: was ordered and showed a heart rate of 70s-90s bpm in normal sinus rhythm Patient's laboratory studies and imaging reviewed. Differential includes Appendicitis, diverticulitis, UTI, obstruction, mesenteric ischemia, aortic pathology, inflammatory bowel disease, renal colic, PUD, pancreatitis, biliary pathology, hernia, volvulus, constipation, as well as other pathologies. IMPRESSION/MEDICAL DECISION MAKING: Patient with several weeks of some intermittent upper abdominal discomfort although fairly regularly some radiation to the right upper back at times. No trauma reported or syncope. Decreased oral intake with some associated nausea. Some diarrhea the last several days after oral contrast CT scan. Outpatient ultrasound and CT scan reports were reviewed as well as recent notes in the computer system. Unclear of the etiology of her symptoms. Some mild abdominal tenderness. Is been several days since her last imaging a repeat CT scan of the abdomen pelvis to complete as well as basic blood work. Gently given some IV fluid hydration as she states she is not had much intake. Denies nausea at the current time. Patient is anticoagulated with apixaban and thus lower suspicion for PE given this. Symptoms do not sound that cardiac in nature but EKG and troponin were completed. Basic blood work without any anemia or leukocytosis. Negative COVID. CT scan report from radiology reviewed without evidence of diverticulitis or bowel obstruction. Very small hiatal hernia is noted there was some mild distal esophageal thickening. Patient's pain has been again coming at times in waves. Was requesting something to assist with this and given some Pepcid, GI cocktail, and a very small dose of fentanyl for some control. Question if perhaps her symptoms are related to esophageal dysfunction versus esophageal candidiasis ve rsus other. Further EGD work-up would seem appropriate. Patient expressed concerns given her weakness continued pain and difficulty with oral intake. She do not feel comfortable going home at this time. Discussed with hospitalist for further observation here. DIAGNOSIS: Nausea, upper abdominal pain, decreased oral intake DISPOSITION: Hospitalist will evaluate Past Med/Surg History Medical History Adverse reaction to anesthetic agent Hard to wake up Asthma CAD (coronary artery disease) NON-OBSTRUCTIVE Cardiorenal syndrome Chronic back pain RLE RADICULOPATHY Chronic hypoxemic respiratory failure Chronic kidney disease, stage III (moderate) Congestive heart failure DIASTOLIC COPD (chronic obstructive pulmonary disease) Depression Diabetes mellitus, type 2 Dyspnea on exertion GERD (gastroesophageal reflux disease) CONTROLLED Glaucoma Headache TEMPORAL BIOPSY DONE IN 2018 Hiatal hernia History of central retinal artery occlusion History of diverticulitis Hx of gout Hyperlipidemia Hypertension Nocturnal hypoxemia On home oxygen therapy WEARS 2L O2 "MOST OF THE TIME" Osteoarthritis Pulmonary HTN SEVERE PULMONARY HTN (RVSP > 60MMHG) Pulmonary hypertension Seizure 18 YEARS AGO; NO ISSUES SINCE Tremor ESSENTIAL TREMOR (HEAD) Valvular disease MODERATE TO SEVERE TR. MODERATE AV SCLEROSIS Surgical History History of cardiac cath 2008 NO STENTS History of cataract surgery RT/LEFT History of dacryocystorhinostomy bilateral History of dilation and curettage History of surgery CYSTOCELE REPAIR RECTOCELE REPAIR History of temporal artery biopsy 02/08/14= MAC SEDATION WITHOUT ISSUES AT [facility] History of tooth extraction History of total hip arthroplasty (~07/16/09) LEFT Family History Father , Age 60 from [place] Myocardial infarction Diabetes Hypertension Grandfather Stroke Mother Cancer Hearing loss Allergies Aunt Hearing loss Other Asthma Coronary heart disease Heart disease No family history of adverse response to anesthesia No family history of bleeding disorder Denies family history of Ovarian cancer Prostate cancer Breast cancer Lung cancer Colorectal cancer Social History Smoking Status: Never smoker Second Hand Exposure: No; Do You Dip or Chew Tobacco: No; Tobacco Cessation Education Requested by Patient: No Hx Alcohol Use: No Hx Substance Use: No Preferred Language: Arabic Communication Ability: Effective Visual Impairment: No Limitations Hearing Ability: Normal Supervisor Ride Assembly Required: No Beliefs That Will Affect Care: None marital status: / Current Living Situation: Alone Current Living Situation Comment: pt is sister's caregiver current occupational status: retired How many Children do You have: 2 Other Information That Helps Us Care for You: No Feels Safe at Home: Yes Safety Concerns: Feels Safe At This Time Childhood Exposure to Second-Hand Smoke: No caffeine: Yes Dental Care, Regularly: Yes Physical Activity Frequency: Does not Exercise Seatbelt Use: always Sunscreen Use: Yes Assistive Devices: Cane and Walker Allergies Allergies Allergy/AdvReac Type Severity Reaction Status Date / Time Sulfa (Sulfonamide Allergy Severe ANAPHYLAXIS; Verified 09/18/21 07:25 Antibiotics) TAKES AMARYL W/O REACTION nystatin Allergy Intermediate Wheezing Verified 09/18/21 07:25 cephalexin [From Keflex] Allergy Mild Headahce; Verified 09/18/21 07:25 Nausea; Rash thyroid, pork Allergy Unknown "ALL Verified 09/18/21 07:25 THYROID AGENTS" amoxicillin [From Augmentin] Allergy Verified 09/18/21 07:25 clavulanic acid Allergy Verified 09/18/21 07:25 [From Augmentin] Cephalosporins AdvReac Mild KEFLEX Verified 09/18/21 07:25 ALLERGY -NAUSEA Home Meds Home Medications Medication Instructions Recorded Confirmed glucosamine-chondroitin 250 mg-200 2 tab PO BID 05/13/18 09/18/21 mg tablet (Osteo Bi-Flex) ferrous sulfate 325 mg (65 mg 325 mg PO DAILY tab 06/24/20 09/18/21 iron) tablet travoprost 0.004 % eye drops 1 drp OPB HS 11/13/20 09/18/21 (Travatan Z) flash glucose scanning reader 07/31/21 09/15/21 (FreeStyle Jelly 2 [place]) flash glucose sensor (FreeStyle 07/31/21 09/15/21 Jelly 2 Sensor) gabapentin 600 mg tablet 600 mg PO TID PRN tab 09/15/21 09/18/21 Previous Rx's Medication Instructions Recorded levalbuterol HCl 1.25 mg/3 mL 1.25 mg INH Q4H PRN #90 ml 07/28/19 solution for nebulization calcium carbonate 600 mg calcium 600 mg PO DAILY #90 tab 09/02/20 (1,500 mg) tablet (Calcium) allopurinol 100 mg tablet 200 mg PO QAM #180 tab 11/26/20 carvedilol 3.125 mg tablet 3.125 mg PO BID #180 tab 11/26/20 BD Ultra-Fine [place] Pen Needle 32 #400 ea NS 12/26/20 gauge x 5/32" (pen needle, diabetic) Novolog Flexpen U-100 Insulin 100 See Rx Instructions SUBCUT 12/26/20 unit/mL (3 mL) subcutaneous .COMPLEX 90 Days #75 ml NS (insulin aspart U-100) TechLITE Lancets 30 gauge (lancets) #400 ea NS 12/26/20 insulin glargine 100 unit/mL (3 10 unit SUBCUT DAILY #1 box MDD up 01/28/21 mL) subcutaneous pen (Lantus to 16 units a day Solostar U-100 Insulin) simvastatin 40 mg tablet 40 mg PO HS #90 tab 02/04/21 furosemide 40 mg tablet (Lasix) 40 mg PO Q OTHER DAY #45 tab 04/03/21 telmisartan 40 mg tablet 40 mg PO DAILY #90 tab 06/10/21 Portable Oxygen #1 ea 07/08/21 blood sugar diagnostic #100 ea 07/31/21 apixaban 2.5 mg tablet (Eliquis) 2.5 mg PO BID #180 tab 08/18/21 budesonide-formoterol HFA 160 2 puff INHALATION BID #3 inhaler 08/18/21 mcg-4.5 mcg/actuation aerosol inhaler (Symbicort) famotidine 20 mg tablet (Acid 20 mg PO DAILY #30 tab 08/18/21 De Icer Finisher (famotidine)) albuterol sulfate 90 mcg/actuation 2 puff INHALATION Q6H PRN #3 09/04/21 aerosol inhaler inhaler pantoprazole 40 mg tablet,delayed 40 mg PO BID #60 tab 09/16/21 release Results & Data (ED) Vital Signs Vital Signs - 24 hr 09/18/21 06:20 09/18/21 08:18 09/18/21 09:00 Temperature 35.6 C L Temperature Source Temporal Artery Scan Pulse Rate 89 Pulse Rate [Apical] 72 70 Pulse Rhythm [Apical] Regular Regular Respiratory Rate 18 17 18 Respiratory Effort / Characteristics Non-Labored Spontaneous Non-Labored Spontaneous Respiratory Depth Normal Normal Respiratory Pattern Regular Regular Blood Pressure 146/91 H Blood Pressure [Right Arm] 125/67 142/83 H Blood Pressure Mean 109 Blood Pressure Mean [Right Arm] 86 102 Pulse Oximetry 100 96 98 Oxygen Delivery Method Room Air Room Air Room Air Sepsis Recent Fever Within 48 Hours No Sepsis New/Unexplained Change in Mental Status No Sepsis Action Taken by Nursing No Action Required Laboratory Data Result diagrams: 09/18/21 07:17 09/18/21 07:44 Lab Results 09/18/21 09/18/21 09/18/21 Range/Units 07:17 07:17 07:44 WBC 7.76 (4.8-10.8) K/uL RBC 4.32 (4.2-5.4) M/uL Hgb 13.9 (12.0-16.0) g/dL Hct 41.2 (37-47) % MCV 95.4 (80-100) fL MCH 32.2 (25-34) pg MCHC 33.7 (32-36) g/dL RDW Std Deviation 52.1 H (36.4-46.3) fL RDW Coeff of Terri 14.9 H (11.5-14.5) % Plt Count 176 (130-400) K/uL MPV 11.9 H (7.4-10.4) fL Immature Gran % (Auto) 0.4 % Neut % (Auto) 69.7 % Lymph % (Auto) 17.5 % [place] % (Auto) 8.4 % Eos % (Auto) 3.5 % Baso % (Auto) 0.5 % Neut # (Auto) 5.41 (1.4-6.5) K/uL Lymph # (Auto) 1.36 (1.2-3.4) K/uL [place] # (Auto) 0.65 H (0.11-0.59) K/uL Eos # (Auto) 0.27 (0-0.5) K/uL Baso # (Auto) 0.04 (0-0.2) K/uL Immature Gran # (Auto) 0.03 H (0.00-0.02) K/uL Sodium 133 L (136-145) mmol/L Potassium 5.0 (3.5-5.1) mmol/L Chloride 99 (98-107) mmol/L Carbon Dioxide 21 (21-32) mmol/L Anion Gap 13 H (3-11) BUN 58 H (6-23) mg/dl Creatinine 1.77 H (0.6-1.2) mg/dl Est Cr Clr Drug Dosing Not Reportable Est GFR ( Amer) 29.4 ml/min Est GFR (Non-Af Amer) 25.4 ml/min BUN/Creatinine Ratio 32.8 H (10-20) Glucose 139 H (70-99(Fasting)) mg/dl Calcium 10.0 (8.5-10.1) mg/dl Total Bilirubin 1.1 H (0.2-1.0) mg/dl AST 28 (13-39) U/L ALT 29 (7-52) U/L Alkaline Phosphatase 88 (34-104) U/L Troponin I 0.05 H* (0-0.04) ng/ml Total Protein 8.4 H (6.0-8.3) gm/dl Albumin 4.3 (3.4-5.0) gm/dl Globulin 4.1 H (2.5-4.0) gm/dl Albumin/Globulin Ratio 1.0 (0.9-2) Lipase 80 (11-82) U/L SARS-CoV-2, RNA, NAAT NEGATIVE (NEGATIVE) Administered Medications Carvedilol (Carvedilol 3.125 Mg Tab) 3.125 mg PO BID [facility] Stop: 10/18/21 11:49 Last Admin: 09/18/21 13:12 Dose: 3.125 mg Documented by: [id number] Famotidine (Famotidine 20 Mg Tab) 20 mg PO DAILY LEA Stop: 10/18/21 11:49 Last Admin: 09/18/21 13:12 Dose: 20 mg Documented by: [id number] Fluticasone/Vilanterol (Fluticasone/Vilanterol 100/25mcg 14 Puffs/Inhaler) 1 puffs INH DAILY LEA Stop: 10/18/21 12:29 Last Admin: 09/18/21 13:13 Dose: 1 puffs Documented by: [id number] Insulin Aspart (Insulin Aspart Per Unit) 0 units SC ACHS LEA Stop: 10/18/21 11:49 Last Admin: 09/18/21 13:06 Dose: Not Given Documented by: [id number] Pantoprazole Sodium (Pantoprazole 40 Mg Tab) 40 mg PO BID LEA Stop: 10/18/21 12:29 Last Admin: 09/18/21 13:13 Dose: 40 mg Documented by: [id number] Telmisartan (Telmisartan 40 Mg Tab) 40 mg PO DAILY LEA Stop: 10/18/21 11:49 Last Admin: 09/18/21 13:12 Dose: 40 mg Documented by: [id number] Discontinued Medications Acetaminophen (Acetaminophen 325 Mg Tab) 650 mg PO NOW STA Stop: 09/18/21 09:26 Last Admin: 09/18/21 09:47 Dose: 650 mg Documented by: [id number] Hydrox/Mg Hydrox/Simethicone (Gi Cocktail Ed Use) Confirm Administered Dose 1 dose PO .STK-MED ONE Stop: 09/18/21 08:27 Last Admin: 09/18/21 08:30 Dose: 1 dose Documented by: [id number] Hydrox/Mg Hydrox/Simethicone 18 ml/ Lidocaine HCl 6 ml/ BARCODE IDENTIFIER 1 ea 0 ml PO ONE ONE Stop: 09/18/21 08:16 Last Admin: 09/18/21 08:30 Dose: Not Given Documented by: [id number] Fentanyl Citrate (Fentanyl Citrate 100 Mcg/2 Ml Vial) 25 mcg IV NOW STA Stop: 09/18/21 08:16 Last Admin: 09/18/21 08:30 Dose: 25 mcg Documented by: [id number] Sodium Chloride (Nss) 500 mls @ 999 mls/hr IV .Q31M STA Stop: 09/18/21 07:17 Last Infusion: 09/18/21 08:31 Dose: 0 mls/hr Documented by: [id number] Admin: 09/18/21 07:46 Dose: 999 mls/hr Documented by: [id number] Imaging Data Radiologist's Impression: Abdomen/Pelvis CT 09/18/21 06:[address] WITHOUT CONTRAST CT DOSE: 257.94 mGy.cm HISTORY: Acute generalized abdominal pain with nausea upper abd pain, nausea TECHNIQUE: Multiaxial CT images of the abdomen and pelvis were performed without contrast. A dose lowering technique was utilized adhering to the principles of ALARA. COMPARISON STUDY: CT abdomen pelvis 09/15/2021 FINDINGS: Cardiomegaly with coronary arterial stents artery calcifications. Tra ce pericardial effusion. Mild bibasilar atelectasis/scarring. There is no pneumatosis or pneumoperitoneum. The study is mildly motion degraded. Limited exam without the use of contrast. The unenhanced spleen, mildly atrophic pancreas and right adrenal gland are unremarkable. A 2 cm left adrenal gland adenoma is stable. Mildly increased attenuation of the gallbladder may represent biliary sludge. Unremarkable liver. Nonspecific left greater than right perinephric stranding. There is no hydronephrosis or urolith identified. Unremarkable urinary bladder, uterus and adnexa. Pelvic structures are suboptimally visualized secondary to streak artifact from left hip total joint arthroplasty. Atherosclerotic plaque of the aorta. There is no adenopathy. Tiny hiatal hernia with mild distal esophageal wall thickening. No bowel obstruction or bowel wall thickening. Colonic diverticulosis without acute diverticulitis. Noninflamed appendix. No ascites or mesenteric inflammation. Tiny fat filled periumbilical hernia. Subcutaneous stranding of the anterior abdominal wall suggestive of additional injection sites. Degenerative changes of the spine, pelvis and hips. Multilevel central canal stenosis of the lumbar spine. IMPRESSION: 1. No bowel obstruction or bowel wall thickening. 2. Colonic diverticulosis without acute diverticulitis. 3. Tiny hiatal hernia with mild distal esophageal wall thickening. 4. Additional findings as above. ACT 112: Negative or not required by law. The above report was generated using voice recognition software. It may contain grammatical, syntax or spelling errors. Electronically signed by: Fede Benitez M.D. 09/18/2021 8:06 AM Discharge Plan Visit Data Chief Complaint: Abdominal Pain Stated Complaint: ABD PAIN ED Provider: Lew Lynch Discharge Problem: Nausea, Acute upper abdominal pain, Decreased oral intake, Chronic kidney disease, stage IV (severe) Patient Disposition: Admitted As Inpatient Discharge Instructions Interventions: ED Discharge Assessment Last Done: 09/18/21 10:48
[2021-09-18 07:25] LABS: Basophils # (auto) 0.04 K/uL (0-0.2); Basophils % (auto) 0.5 %; Eosinophils # (auto) 0.27 K/uL (0-0.5); Eosinophils % (auto) 3.5 %; Hematocrit (blood only) 41.2 % (37-47); Hemoglobin 13.9 g/dL (12.0-16.0); Immature Granulocytes # (auto) 0.03 K/uL (0.00-0.02); Immature Granulocytes % (auto) 0.4 %; Lymphocytes # (auto) 1.36 K/uL (1.2-3.4); Lymphocytes % (auto) 17.5 %; Mean Corpuscular Hemoglobin 32.2 pg (25-34); Mean Corpuscular Hgb Conc 33.7 g/dL (32-36); Mean Corpuscular Volume 95.4 fL (80-100); Mean Platelet Volume 11.9 fL (7.4-10.4); Monocytes # (auto) 0.65 K/uL (0.11-0.59); Monocytes % (auto) 8.4 %; Neutrophils # (auto) 5.41 K/uL (1.4-6.5); Neutrophils % (auto) 69.7 %; Platelet Count 176 K/uL (130-400); RDW Coefficient of Variation 14.9 % (11.5-14.5); RDW Standard Deviation 52.1 fL (36.4-46.3); Red Blood Count 4.32 M/uL (4.2-5.4); White Blood Count 7.76 K/uL (4.8-10.8)
--- NOTE | 2021-09-18 08:07 | CT Scan Report ---
ABDOMEN AND PELVIS CT WITHOUT CONTRAST CT DOSE: 257.94 mGy.cm HISTORY: Acute generalized abdominal pain with nausea upper abd pain, nausea TECHNIQUE: Multiaxial CT images of the abdomen and pelvis were performed without contrast. A dose lo wering technique was utilized adhering to the principles of ALARA. COMPARISON STUDY: CT abdomen pelvis 09/15/2021 FINDINGS: Cardiomegaly with coronary arterial stents artery calcifications. Trace pericardial effusio n. Mild bibasilar atelectasis/scarring. There is no pneumatosis or pneumoperitoneum. The study is mil dly motion degraded. Limited exam without the use of contrast. The unenhanced spleen, mildly atrophic pancreas and right adrenal gland are unremarkable. A 2 cm left adrenal gland adenoma is stable. Mild ly increased attenuation of the gallbladder may represent biliary sludge. Unremarkable liver. Nonspecific left greater than right perinephric stranding. There is no hydronephrosis or urolith iden tified. Unremarkable urinary bladder, uterus and adnexa. Pelvic structures are suboptimally visualize d secondary to streak artifact from left hip total joint arthroplasty. Atherosclerotic plaque of the aorta. There is no adenopathy. Tiny hiatal hernia with mild distal esophageal wall thickening. No bowel obstruction or bowel wall th ickening. Colonic diverticulosis without acute diverticulitis. Noninflamed appendix. No ascites or me senteric inflammation. Tiny fat filled periumbilical hernia. Subcutaneous stranding of the anterior a bdominal wall suggestive of additional injection sites. Degenerative changes of the spine, pelvis and hips. Multilevel central canal stenosis of the lumbar spine. IMPRESSION: 1. No bowel obstruction or bowel wall thickening. 2. Colonic diverticulosis without acute diverticulitis. 3. Tiny hiatal hernia with mild distal esophageal wall thickening. 4. Additional findings as above. ACT 112: Negative or not required by law. The above report was generated using voice recognition software. It may contain grammatical, syntax o r spelling errors. Electronically signed by: Fede Benitez M.D. 09/18/2021 8:06 AM
[2021-09-18] MEDS ORDERED: fentaNYL citrate 100 MCG/2 ML VIAL IV STA (08:15)
[2021-09-18] MEDS ORDERED: ALUMINUM/MAGNESIUM SUSP 18 ML, LIDOCAINE VISCOUS 2% SOLN 6 ML, BARCODE IDENTIFIER 1 EA PO ONE (08:15)
[2021-09-18 08:25] LABS: Alanine Aminotransferase 29 U/L (7-52); Albumin Level 4.3 gm/dl (3.4-5.0); Alkaline Phosphatase 88 U/L (34-104); Anion Gap 13 (3-11); Aspartate Aminotransferase 28 U/L (13-39); BUN Creatinine Ratio 32.8 (10-20); Bilirubin,Total 1.1 mg/dl (0.2-1.0); Blood Urea Nitrogen 58 mg/dl (6-23); Carbon Dioxide 21 mmol/L (21-32); Chloride 99 mmol/L (98-107); Est GFR (African American) 29.4 ml/min; Est GFR (Non-African American) 25.4 ml/min; Globulin 4.1 gm/dl (2.5-4.0); Glucose 139 mg/dl (70-99(Fasting)); Lipase 80 U/L (11-82); Sodium 133 mmol/L (136-145); Total Protein 8.4 gm/dl (6.0-8.3); Troponin I 0.05 ng/ml (0-0.04)
[2021-09-18] MEDS ORDERED: GI COCKTAIL ED USE PO ONE (08:26)
[2021-09-18] MEDS ORDERED: ACETAMINOPHEN 325 MG TAB PO STA (09:25)
--- NOTE | 2021-09-18 10:29 | History & Physical Report ---
Date of Service September 18, 2021 Assessment & Plan (1) Abdominal pain: Plan: Attending: Dr. Apple Impression: 86-year-old female with 3-week history of abdominal pain. She had one episode of vomiting approximately 3 weeks ago. She currently has bowel movement every time she eats. Abdominal pain does not seem to be related to eating. Patient was seen by PCP last week followed by appointment with Lynne Martinez PA-C with gastroenterology. Was advised to report to the emergency department with any further pain. Patient currently is hemodynamically stable. She will be admitted under observation with anticipation of EGD tomorrow. CT scan of the abdomen pelvis shows diverticulosis without diverticulitis. No other significant findings No melena, hematochezia, bright red blood per rectum Patient with chronic anemia on ferrous replacement. No rebound tenderness or significant pain with palpation Bowel sounds are present in all 4 quadrants Consult gastroenterology. Discussion with Lynne Martinez PA-C via [place] text. Anticipate EGD tomorrow (2) Chronic hypoxemic respiratory failure: Plan: Patient followed with Dr. Little until recently when she was switched to Dr. Oconnor in the outpatient office 6-minute walk test revealed significant desaturation. Patient prescribed supplemental oxygen to be used /. She states that she is not using oxygen at home at all right now. Will prescribe 2 L/min via nasal cannula at all times while inpatient Advised patient to use supplemental oxygen on discharge Currently patient is saturating well on room air Continue outpatient treatment including budesonide/formoterol twice daily and nebulizer treatments. (3) Pulmonary hypertension: Plan: Echocardiogram performed 07/30/2021. Now with severe pulmonary hypertension with pressures of 95 to 100 mmHg Continue with supplemental oxygen Furosemide held today due to increased BUN Resume diuresis tomorrow Monitor on telemetry with continuous pulse oximetry (4) Atrial fibrillation: Plan: Hold apixaban today in anticipation of EGD tomorrow Typically on apixaban 2.5 mg twice daily We will also continue diltiazem Follow on telemetry (5) Chronic kidney disease, stage IV (severe): Plan: Creatinine is at baseline today BUN has been elevated since April 2021 and is currently 58 Follow serial labs (6) Diabetes mellitus, type 2: Plan: Continue with Lantus We will orders NovoLog sliding scale insulin Hemoglobin A1c 09/12/2021 was 7.7% Continue outpatient management (7) GERD (gastroesophageal reflux disease): Plan: Continue pantoprazole and famotidine GI consulted Further management per GI team (8) DVT prophylaxis: Plan: Patient chronically anticoagulated with apixaban 2.5 mg p.o. twice daily Hold apixaban in anticipation of EGD tomorrow Resume apixaban when cleared by gastroenterology Monitor on telemetry EILEEN leighton and SCDs ordered History of Present Illness Chief Complaint: Abdominal pain Primary Care Provider: Jeyson Peña MD Attending: Dr. Apple This is a 86-year-old female that has a past medical history including COPD, CHF, atrial fibrillation, chronic anticoagulation with apixaban twice daily, pulmonary hypertension, chronic hypoxemic respiratory failure, anemia on chronic iron supplement, gout, lumbar spinal stenosis, vitamin D deficiency, GERD, chronic kidney disease stage IV, history of pulmonary embolism, hyponatremia history, hiatal hernia, CAD, hypertension, hyperlipidemia, depression, diabetes mellitus type 2 on chronic insulin, valvular heart disease, osteoarthritis, hypothyroidism, tremor. Patient reports that she has had abdominal pain for the last several weeks. About 3 weeks ago she had one episode of vomiting. She reports that since that time she has had loose bowel movements. She is also complaining of every time she eats she has a bowel movement. She has not been able to have anything to eat of significance. She also states very little fluid intake. CT scan of the abdomen shows some diverticulosis with no other significant issues. Patient is hemodynamically stable. She is not normal sinus rhythm at this time with a heart rate in the 70s. Patient has no significantly imbalance labs other than her chronic kidney disease. BUN is 58, creatinine is 1.77 (baseline). It should be noted that BUN has been above 40 mg/Kavin since April 2021. Patient was seen by Brody Barnhart PA-C last week. She was then seen by Lynne Martinez PA-C from GI. I did have communication with GI this morning. They will plan on doing EGD tomorrow. Patient is a full resuscitation. This was discussed in person with the patient with her daughter present. Vaccinations include Covid vaccination with Pfizer on 10/08/2020 and 10/29/2020. Allergies Allergy/AdvReac Type Severity Reaction Status Date / Time Sulfa (Sulfonamide Allergy Severe ANAPHYLAXIS; Verified 09/18/21 07:25 Antibiotics) TAKES AMARYL W/O REACTION nystatin Allergy Intermediate Wheezing Verified 09/18/21 07:25 cephalexin [From Keflex] Allergy Mild Headahce; Verified 09/18/21 07:25 Nausea; Rash thyroid, pork Allergy Unknown "ALL Verified 09/18/21 07:25 THYROID AGENTS" amoxicillin [From Augmentin] Allergy Verified 09/18/21 07:25 clavulanic acid Allergy Verified 09/18/21 07:25 [From Augmentin] Cephalosporins AdvReac Mild KEFLEX Verified 09/18/21 07:25 ALLERGY -NAUSEA Home Medications Medication Instructions Recorded Confirmed Type glucosamine-chondroitin 250 mg-200 2 tab PO BID 05/13/18 09/18/21 History mg tablet (Osteo Bi-Flex) levalbuterol HCl 1.25 mg/3 mL 1.25 mg INH Q4H PRN #90 ml 07/28/19 09/18/21 Rx solution for nebulization ferrous sulfate 325 mg (65 mg 325 mg PO DAILY tab 06/24/20 09/18/21 History iron) tablet calcium carbonate 600 mg calcium 600 mg PO DAILY #90 tab 09/02/20 09/18/21 Rx (1,500 mg) tablet (Calcium) travoprost 0.004 % eye drops 1 drp OPB HS 11/13/20 09/18/21 History (Travatan Z) allopurinol 100 mg tablet 200 mg PO QAM #180 tab 11/26/20 09/18/21 Rx carvedilol 3.125 mg tablet 3.125 mg PO BID #180 tab 11/26/20 09/18/21 Rx BD Ultra-Fine Vielka Pen Needle 32 #400 ea NS 12/26/20 09/15/21 Rx gauge x 5/32" (pen needle, diabetic) Novolog Flexpen U-100 Insulin 100 See Rx Instructions SUBCUT 12/26/20 09/18/21 Rx unit/mL (3 mL) subcutaneous .COMPLEX 90 Days #75 ml NS (insulin aspart U-100) TechLITE Lancets 30 gauge (lancets) #400 ea NS 12/26/20 09/15/21 Rx insulin glargine 100 unit/mL (3 10 unit SUBCUT DAILY #1 box MDD up 01/28/21 09/18/21 Rx mL) subcutaneous pen (Lantus to 16 units a day Solostar U-100 Insulin) simvastatin 40 mg tablet 40 mg PO HS #90 tab 02/04/21 09/18/21 Rx furosemide 40 mg tablet (Lasix) 40 mg PO Q OTHER DAY #45 tab 04/03/21 09/18/21 Rx telmisartan 40 mg tablet 40 mg PO DAILY #90 tab 06/10/21 09/18/21 Rx Portable Oxygen #1 ea 07/08/21 09/15/21 Rx blood sugar diagnostic #100 ea 07/31/21 09/15/21 Rx flash glucose scanning reader 07/31/21 09/15/21 History (FreeStyle Jelly 2 [place]) flash glucose sensor (FreeStyle 07/31/21 09/15/21 History Jelly 2 Sensor) apixaban 2.5 mg tablet (Eliquis) 2.5 mg PO BID #180 tab 08/18/21 09/18/21 Rx budesonide-formoterol HFA 160 2 puff INHALATION BID #3 inhaler 08/18/21 09/18/21 Rx mcg-4.5 mcg/actuation aerosol inhaler (Symbicort) famotidine 20 mg tablet (Acid 20 mg PO DAILY #30 tab 08/18/21 09/18/21 Rx Furniture Sales Consultant (famotidine)) albuterol sulfate 90 mcg/actuation 2 puff INHALATION Q6H PRN #3 09/04/21 09/18/21 Rx aerosol inhaler inhaler gabapentin 600 mg tablet 600 mg PO TID PRN tab 09/15/21 09/18/21 History pantoprazole 40 mg tablet,delayed 40 mg PO BID #60 tab 09/16/21 09/18/21 Rx release Past Med/Surg History Medical History Adverse reaction to anesthetic agent Hard to wake up Asthma CAD (coronary artery disease) NON-OBSTRUCTIVE Cardiorenal syndrome Chronic back pain RLE RADICULOPATHY Chronic hypoxemic respiratory failure Chronic kidney disease, stage III (moderate) Congestive heart failure DIASTOLIC COPD (chronic obstructive pulmonary disease) Depression Diabetes mellitus, type 2 Dyspnea on exertion GERD (gastroesophageal reflux disease) CONTROLLED Glaucoma Headache TEMPORAL BIOPSY DONE IN 2018 Hiatal hernia History of central retinal artery occlusion History of diverticulitis Hx of gout Hyperlipidemia Hypertension Nocturnal hypoxemia On home oxygen therapy WEARS 2L O2 "MOST OF THE TIME" Osteoarthritis Pulmonary HTN SEVERE PULMONARY HTN (RVSP > 60MMHG) Pulmonary hypertension Seizure 18 YEARS AGO; NO ISSUES SINCE Tremor ESSENTIAL TREMOR (HEAD) Valvular disease MODERATE TO SEVERE TR. MODERATE AV SCLEROSIS Surgical History History of cardiac cath 2008 NO STENTS History of cataract surgery RT/LEFT History of dacryocystorhinostomy bilateral History of dilation and curettage History of surgery CYSTOCELE REPAIR RECTOCELE REPAIR History of temporal artery biopsy 02/08/14= MAC SEDATION WITHOUT ISSUES AT [facility] History of tooth extraction History of total hip arthroplasty (~07/16/09) LEFT Family History Father , Age 60 from [place] Myocardial infarction Diabetes Hypertension Grandfather Stroke Mother Cancer Hearing loss Allergies Aunt Hearing loss Other Asthma Coronary heart disease Heart disease No family history of adverse response to anesthesia No family history of bleeding disorder Denies family history of Ovarian cancer Prostate cancer Breast cancer Lung cancer Colorectal cancer Social History Smoking Status: Never smoker Second Hand Exposure: No; Do You Dip or Chew Tobacco: No; Tobacco Cessation Education Requested by Patient: No Hx Alcohol Use: No Hx Substance Use: No Preferred Language: Cuban Communication Ability: Effective Visual Impairment: No Limitations Hearing Ability: Normal Supervisor Cell Efficiency Required: No Beliefs That Will Affect Care: None marital status: / Current Living Situation: Alone Current Living Situation Comment: pt is sister's caregiver current occupational status: retired How many Children do You have: 2 Other Information That Helps Us Care for You: No Feels Safe at Home: Yes Safety Concerns: Feels Safe At This Time Childhood Exposure to Second-Hand Smoke: No caffeine: Yes Dental Care, Regularly: Yes Physical Activity Frequency: Does not Exercise Seatbelt Use: always Sunscreen Use: Yes Assistive Devices: Cane, Prosthesis, Walker and Wheelchair Review of Systems Review of Systems: All systems reviewed & are unremarkable except as noted in Subjective Physical Exam Physical Exam: GENERAL : No acute distress EYES: No icterus, gaze conjugate NOSE: No evidence of epistaxis MOUTH: No lesions or candidiasis NECK: Supple LUNGS: Bibasilar crackles. No bronchospasm. HEART: Regular, rate controlled ABDOMEN: Soft, NT, ND, BS Present EXTREMITIES: Trace bilateral LE edema, pedal pulses intact NEURO: A&OX3 Results & Data Results & Data ([facility]) Vital Signs (Past 12 Hours) Vital Signs Temp Pulse Pulse Resp BP BP Pulse Ox 09/18/21 09:00 70 18 142/83 H 98 09/18/21 08:18 72 17 125/67 96 09/18/21 06:20 35.6 C L 89 18 146/91 H 100 Laboratory Results 09/18/21 07:17 09/18/21 07:44 Laboratory Tests 09/18/21 07:17 SARS-CoV-2, RNA, NAAT NEGATIVE Code Status & VTE Plan Code Status Level I: Full resuscitation VTE Prophylaxis Plan VTE Prophylaxis will be ordered: Yes Supervising Physician Co-Signing Physician Notes I personally saw and examined the patient. I verified all zhao points and agree with Shaun Murphy PA-C with the following exceptions and/or additions: 86 year old female with progressively worsening but intermittent RUQ abdominal pain for the last 3 weeks. Associated reduced appetite but no association of pain coming on and bowel movements or eating. No nausea or vomiting. No dysphagia or odynophagia. Not startde any new medications. No current abdominal pain on exam. No diarrhea since admission - this started after. Patient seen approximately 8pm. O/E HS1+2, no murmurs, no resp distress, abdo SNT, BS +ve A/P Abdominal pain - more concerning for biliary origin than gastric. Hx of c. diff therefore will repeat this is she has diarrhea + GI stool PCR. Will continue with plan for EGD tomorrow however consider HIDA scan if this is negative +/- MRCP for possible sphincter of oddi dysfunction. Noted normal US liver previously, no need to repeat this - whatever is causing her pain it is very intermittent. Bilirubin mildly elevated also fits with a biliary diagnosis. No suspicion of acute cholangitis given intermittent nature and CT findings. PG Care Time/CCT Total # of Minutes Spent Total Time Spent with Patient: Total time spent is greater than 50% in coordination of care (as documented) at patient's floor/unit and/or counseling patient:50 minutes Coding Level of Care Code 82726 Initial Inpt Care Lvl 3 Diagnoses Abdominal pain R10.9 Chronic hypoxemic respiratory failure J96.11 Pulmonary hypertension I27.20 Atrial fibrillation I48.91 Chronic kidney disease, stage IV (severe) N18.4 Diabetes mellitus, type 2 E11.9 GERD (gastroesophageal reflux disease) K21.9 DVT prophylaxis Z29.9 Time Spent (min) 50
[2021-09-18] MEDS ORDERED: ALBUTEROL HFA 8 GM INHALER INH PRN (11:50)
[2021-09-18] MEDS ORDERED: LEVALBUTEROL HCL 1.25 MG/3 ML NEB INH PRN (11:50)
[2021-09-18] MEDS ORDERED: GLUCAGON FOR INJ 1 MG VIAL SQ PRN (11:50)
[2021-09-18] MEDS ORDERED: DEXTROSE 50% 50 ML SYRINGE IV PRN (11:50)
[2021-09-18] MEDS ORDERED: ONDANSETRON INJ 2 MG/ML 2 ML VIAL IV PRN (11:50)
[2021-09-18] MEDS ORDERED: CARBOHYDRATES FOR HYPOGLYCEMIA PO PRN (11:50)
[2021-09-18] MEDS ORDERED: GLUCOSE 10 TABS/TUBE PO PRN (11:50)
[2021-09-18] MEDS ORDERED: GLUCOSE 40% GEL 15 GM TUBE PO PRN (11:50)
--- NOTE | 2021-09-18 12:05 | Gastrointestinal Consultation ---
Date of Consultation September 18, 2021 Assessment & Plan (1) Abdominal pain: -Protonix 40 mg BID -Check C diff study -Keep NPO after midnight for EGD tomorrow Supervising Physician Co-Signing Physician Notes I personally evaluated the patient and agree with the findings as documented by ANN Paulson Exam: abd: soft, nt, nd History of Present Illness Reason for Consultation: Abdominal pain Attending Physician: Alejandro Apple MD History of Present Illness Patient is an 86 yo female with PMH of COPD, anemia, gout, Afib on chronic anticoagulation, LPRD, CKD4, PE, CHF, CAD, HTN, HLD, DM2, depression, C diff, GERD, chronic back pain, osteoarthritis, pulmonary HTN, and diverticulitis who presented to the outpatient clinic on Wednesday with what she described to be the worst abdominal pain of her life. Due to her history of diverticulitis and this severe pain, a CT scan was performed. This was unremarkable from a GI perspective. She had also had an US ordered by PCP that was unremarkable as well. She reported an episode of diarrhea immediately prior to her visit, but noted that she had not been experiencing this prior. She was scheduled for an EGD for 09/22/21. Unfortunately, due to worsening pain, she presented to the ED for further evaluation. No GI bleeding. Labs are unremarkable from a liver perspective. She is on PPI therapy & H2 blockers at home. Symptoms of abdominal pain have been ongoing for weeks. Allergies Allergy/AdvReac Type Severity Reaction Status Date / Time Sulfa (Sulfonamide Allergy Severe ANAPHYLAXIS; Verified 09/18/21 07:25 Antibiotics) TAKES AMARYL W/O REACTION nystatin Allergy Intermediate Wheezing Verified 09/18/21 07:25 cephalexin [From Keflex] Allergy Mild Headahce; Verified 09/18/21 07:25 Nausea; Rash thyroid, pork Allergy Unknown "ALL Verified 09/18/21 07:25 THYROID AGENTS" amoxicillin [From Augmentin] Allergy Verified 09/18/21 07:25 clavulanic acid Allergy Verified 09/18/21 07:25 [From Augmentin] Cephalosporins AdvReac Mild KEFLEX Verified 09/18/21 07:25 ALLERGY -NAUSEA Home Medications Medication Instructions Recorded Confirmed Type glucosamine-chondroitin 250 mg-200 2 tab PO BID 05/13/18 09/18/21 History mg tablet (Osteo Bi-Flex) levalbuterol HCl 1.25 mg/3 mL 1.25 mg INH Q4H PRN #90 ml 07/28/19 09/18/21 Rx solution for nebulization ferrous sulfate 325 mg (65 mg 325 mg PO DAILY tab 06/24/20 09/18/21 History iron) tablet calcium carbonate 600 mg calcium 600 mg PO DAILY #90 tab 09/02/20 09/18/21 Rx (1,500 mg) tablet (Calcium) travoprost 0.004 % eye drops 1 drp OPB HS 11/13/20 09/18/21 History (Travatan Z) allopurinol 100 mg tablet 200 mg PO QAM #180 tab 11/26/20 09/18/21 Rx carvedilol 3.125 mg tablet 3.125 mg PO BID #180 tab 11/26/20 09/18/21 Rx BD Ultra-Fine [place] Pen Needle 32 #400 ea NS 12/26/20 09/15/21 Rx gauge x 5/32" (pen needle, diabetic) Novolog Flexpen U-100 Insulin 100 See Rx Instructions SUBCUT 12/26/20 09/18/21 Rx unit/mL (3 mL) subcutaneous .COMPLEX 90 Days #75 ml NS (insulin aspart U-100) TechLITE Lancets 30 gauge (lancets) #400 ea NS 12/26/20 09/15/21 Rx insulin glargine 100 unit/mL (3 10 unit SUBCUT DAILY #1 box MDD up 01/28/21 09/18/21 Rx mL) subcutaneous pen (Lantus to 16 units a day Solostar U-100 Insulin) simvastatin 40 mg tablet 40 mg PO HS #90 tab 02/04/21 09/18/21 Rx furosemide 40 mg tablet (Lasix) 40 mg PO Q OTHER DAY #45 tab 04/03/21 09/18/21 Rx telmisartan 40 mg tablet 40 mg PO DAILY #90 tab 06/10/21 09/18/21 Rx Portable Oxygen #1 ea 07/08/21 09/15/21 Rx blood sugar diagnostic #100 ea 07/31/21 09/15/21 Rx flash glucose scanning reader 07/31/21 09/15/21 History (FreeStyle Jelly 2 [place]) flash glucose sensor (FreeStyle 07/31/21 09/15/21 History Jelly 2 Sensor) apixaban 2.5 mg tablet (Eliquis) 2.5 mg PO BID #180 tab 08/18/21 09/18/21 Rx budesonide-formoterol HFA 160 2 puff INHALATION BID #3 inhaler 08/18/21 09/18/21 Rx mcg-4.5 mcg/actuation aerosol inhaler (Symbicort) famotidine 20 mg tablet (Acid 20 mg PO DAILY #30 tab 08/18/21 09/18/21 Rx Care Professional (famotidine)) albuterol sulfate 90 mcg/actuation 2 puff INHALATION Q6H PRN #3 09/04/21 09/18/21 Rx aerosol inhaler inhaler gabapentin 600 mg tablet 600 mg PO TID PRN tab 09/15/21 09/18/21 History pantoprazole 40 mg tablet,delayed 40 mg PO BID #60 tab 09/16/21 09/18/21 Rx release Patient History Medical History Adverse reaction to anesthetic agent Hard to wake up Asthma CAD (coronary artery disease) NON-OBSTRUCTIVE Cardiorenal syndrome Chronic back pain RLE RADICULOPATHY Chronic hypoxemic respiratory failure Chronic kidney disease, stage III (moderate) Congestive heart failure DIASTOLIC COPD (chronic obstructive pulmonary disease) Depression Diabetes mellitus, type 2 Dyspnea on exertion GERD (gastroesophageal reflux disease) CONTROLLED Glaucoma Headache TEMPORAL BIOPSY DONE IN 2018 Hiatal hernia History of central retinal artery occlusion History of diverticulitis Hx of gout Hyperlipidemia Hypertension Nocturnal hypoxemia On home oxygen therapy WEARS 2L O2 "MOST OF THE TIME" Osteoarthritis Pulmonary HTN SEVERE PULMONARY HTN (RVSP > 60MMHG) Pulmonary hypertension Seizure 18 YEARS AGO; NO ISSUES SINCE Tremor ESSENTIAL TREMOR (HEAD) Valvular disease MODERATE TO SEVERE TR. MODERATE AV SCLEROSIS Surgical History History of cardiac cath 2008 NO STENTS History of cataract surgery RT/LEFT History of dacryocystorhinostomy bilateral History of dilation and curettage History of surgery CYSTOCELE REPAIR RECTOCELE REPAIR History of temporal artery biopsy 02/08/14= MAC SEDATION WITHOUT ISSUES AT [facility] History of tooth extraction History of total hip arthroplasty (~07/16/09) LEFT Family History Father , Age 60 from [place] Myocardial infarction Diabetes Hypertension Grandfather Stroke Mother Cancer Hearing loss Allergies Aunt Hearing loss Other Asthma Coronary heart disease Heart disease No family history of adverse response to anesthesia No family history of bleeding disorder Denies family history of Ovarian cancer Prostate cancer Breast cancer Lung cancer Colorectal cancer Social History Smoking Status: Never smoker Second Hand Exposure: No; Do You Dip or Chew Tobacco: No; Tobacco Cessation Education Requested by Patient: No Hx Alcohol Use: No Hx Substance Use: No Preferred Language: Argentine Communication Ability: Effective Visual Impairment: No Limitations Hearing Ability: Normal 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 Beliefs That Will Affect Care: None marital status: / Current Living Situation: Alone Current Living Situation Comment: pt is sister's caregiver current occupational status: retired How many Children do You have: 2 Other Information That Helps Us Care for You: No Feels Safe at Home: Yes Safety Concerns: Feels Safe At This Time Childhood Exposure to Second-Hand Smoke: No caffeine: Yes Dental Care, Regularly: Yes Physical Activity Frequency: Does not Exercise Seatbelt Use: always Sunscreen Use: Yes Assistive Devices: Cane and Walker Review of Systems Constitutional: no fever and no chills Respiratory: no cough and no dyspnea Cardiovascular: no chest pain Gastrointestinal: + abdominal pain and + diarrhea/loose stools; no blood in stools Musculoskeletal: no problem reported Neurologic: no problem reported Psychiatric: no problem reported Hematologic / Lymphatic: no problem reported Physical Exam Constitutional: WD/WN, vitals as above Respiratory: normal respiratory effort Cardiovascular: Rate/Rhythm: regular rate Gastrointestinal (Abdomen): Inspection/Auscultation: abdomen normal to inspection Percussion/Palpation: + abdomen tender Musculoskeletal: Head/Neck/Chest: normocephalic Psychiatric: Orientation: alert and oriented x 3 Results & Data ([facility]) Vital Signs (Past 12 Hours) Vital Signs Temp Pulse Pulse Resp BP BP Pulse Ox 09/18/21 11:28 36.3 C L 71 18 172/76 H 95 09/18/21 10:48 71 20 118/65 96 09/18/21 09:00 70 18 142/83 H 98 09/18/21 08:18 72 17 125/67 96 09/18/21 06:20 35.6 C L 89 18 146/91 H 100 PG Care Time/CCT Total # of Minutes Spent Total Time Spent with Patient: Total time spent is greater than 50% in coordination of care (as documented) at patient's floor/unit and/or counseling patient: Coding Level of Care Code 27678 Initial Inpt Care Lvl 3 Diagnoses Abdominal pain R10.9
[2021-09-18] MEDS: INSULIN ASPART PER UNIT SC SCH ×3 (13:06→19:49)
[2021-09-18] MEDS: carvediloL 3.125 MG TAB PO SCH ×2 (13:12→19:49)
[2021-09-18] MEDS: FAMOTIDINE 20 MG TAB PO SCH (13:12)
[2021-09-18] MEDS: TELMISARTAN 40 MG TAB PO SCH (13:12)
[2021-09-18] MEDS: PANTOprazole 40 MG TAB PO SCH ×2 (13:13→19:50)
[2021-09-18] MEDS: FLUTICASONE/VILANTEROL 100/25MCG 14 PUFFS/INHALER INH SCH (13:13)
[2021-09-18 14:27] LABS: Appearance Urine Clear (Clear); Bacteria Urine Automated Negative (Negative); Bilirubin Urine Negative (Negative); Blood Urine Negative (Negative); Color Urine Yellow; Epithelial Cell Urine Auto >30 /lpf (0-5); Glucose Urine UA Negative (Negative); Ketones Urine Trace (Negative); Leukocyte Esterase Urine Negative (Negative); Nitrite Urine Negative (Negative); Protein Urine 1+ (Negative); RBC Urine Automated 0-4 /hpf (0-4); Specific Gravity Urine 1.012 (1.000-1.030); Urobilinogen Urine Negative (Negative)
[2021-09-18] MEDS: SIMVASTATIN 40 MG TAB PO SCH (19:50)
[2021-09-18] MEDS: TRAVOPROST Z 0.004% OPH SOLN 2.5 ML BTL OPB SCH (19:50)
[2021-09-18] MEDS: LACTATED RINGER'S 1,000 ML IV SCH (22:07)
--- NOTE | 2021-09-18 22:34 | Electrocardiogram Report ---
Test Reason : Blood Pressure : / mmHG Vent. Rate : 096 BPM Atrial Rate : 000 BPM P-R Int : 000 ms QRS Dur : 086 ms QT Int : 398 ms P-R-T Axes : 000 112 -27 degrees QTc Int : 502 ms Poor data quality, interpretation may be adversely affected Atrial fibrillation Low voltage QRS Cannot rule out Anteroseptal infarct (cited on or before 18-SEP-2021) Abnormal ECG When compared with ECG of 12-SEP-2020 13:07, Premature ventricular complexes are no longer Present Confirmed by Avtar Dominguez ([id number]) on 09/18/2021 10:34:34 PM Referred By: REFERRED SELF Confirmed By:Avtar Dominguez
[2021-09-19 07:01] LABS: Basophils # (auto) 0.02 K/uL (0-0.2); Basophils % (auto) 0.3 %; Eosinophils # (auto) 0.29 K/uL (0-0.5); Hematocrit (blood only) 36.9 % (37-47); Hemoglobin 12.2 g/dL (12.0-16.0); Immature Granulocytes # (auto) 0.01 K/uL (0.00-0.02); Immature Granulocytes % (auto) 0.1 %; Lymphocytes # (auto) 1.42 K/uL (1.2-3.4); Lymphocytes % (auto) 19.8 %; Mean Corpuscular Hemoglobin 31.9 pg (25-34); Mean Corpuscular Hgb Conc 33.1 g/dL (32-36); Mean Corpuscular Volume 96.3 fL (80-100); Mean Platelet Volume 11.5 fL (7.4-10.4); Monocytes # (auto) 0.68 K/uL (0.11-0.59); Monocytes % (auto) 9.5 %; Neutrophils # (auto) 4.76 K/uL (1.4-6.5); Neutrophils % (auto) 66.3 %; Platelet Count 161 K/uL (130-400); RDW Standard Deviation 52.5 fL (36.4-46.3); Red Blood Count 3.83 M/uL (4.2-5.4); White Blood Count 7.18 K/uL (4.8-10.8)
[2021-09-19] MEDS: LACTATED RINGER'S 1,000 ML IV SCH ×2 (07:28→17:31)
[2021-09-19 07:36] LABS: BUN Creatinine Ratio 30.2 (10-20); Calcium 9.1 mg/dl (8.5-10.1); Creatinine Clr Calc Pharmacy 18.3 ml/min; Est GFR (African American) 31.1 ml/min; Est GFR (Non-African American) 26.8 ml/min; Potassium 4.6 mmol/L (3.5-5.1)
[2021-09-19] MEDS: INSULIN ASPART PER UNIT SC SCH ×4 (08:01→21:41)
[2021-09-19] MEDS ORDERED: INSULIN GLARGINE SOLOSTAR 100 UNITS/ML 3 ML PEN SQ SCH (09:00)
--- NOTE | 2021-09-19 09:37 | Anesthesiology Consultation ---
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 History Surgery Operation Date: 09/19/21 16:30 Proposed Procedures p Esophagogastroduodenoscopy Dr Buddy Blanc Case, DO Height/Weight Height: 4 ft 11 in Weight: 58.6 kg Allergies Allergy/AdvReac Type Severity Reaction Status Date / Time Sulfa (Sulfonamide Allergy Severe ANAPHYLAXIS; Verified 09/18/21 07:25 Antibiotics) TAKES AMARYL W/O REACTION nystatin Allergy Intermediate Wheezing Verified 09/18/21 07:25 cephalexin [From Keflex] Allergy Mild Headahce; Verified 09/18/21 07:25 Nausea; Rash thyroid, pork Allergy Unknown "ALL Verified 09/18/21 07:25 THYROID AGENTS" amoxicillin [From Augmentin] Allergy Verified 09/18/21 07:25 clavulanic acid Allergy Verified 09/18/21 07:25 [From Augmentin] Cephalosporins AdvReac Mild KEFLEX Verified 09/18/21 07:25 ALLERGY -NAUSEA Medications Home Medications Medication Instructions Recorded Confirmed Last Taken glucosamine-chondroitin 250 mg-200 2 tab PO BID 05/13/18 09/18/21 09/17/21 mg tablet (Osteo Bi-Flex) levalbuterol HCl 1.25 mg/3 mL 1.25 mg INH Q4H PRN #90 ml 07/28/19 09/18/21 0210/07 solution for nebulization ferrous sulfate 325 mg (65 mg 325 mg PO DAILY tab 06/24/20 09/18/21 09/17/21 iron) tablet calcium carbonate 600 mg calcium 600 mg PO DAILY #90 tab 09/02/20 09/18/21 09/17/21 (1,500 mg) tablet (Calcium) travoprost 0.004 % eye drops 1 drp OPB HS 11/13/20 09/18/21 09/17/21 (Travatan Z) allopurinol 100 mg tablet 200 mg PO QAM #180 tab 11/26/20 09/18/21 09/17/21 carvedilol 3.125 mg tablet 3.125 mg PO BID #180 tab 11/26/20 09/18/21 09/17/21 BD Ultra-Fine Vielka Pen Needle 32 #400 ea NS 12/26/20 09/15/21 Unknown gauge x 5/32" (pen needle, diabetic) Novolog Flexpen U-100 Insulin 100 See Rx Instructions SUBCUT 12/26/20 09/18/21 09/17/21 unit/mL (3 mL) subcutaneous .COMPLEX 90 Days #75 ml NS (insulin aspart U-100) TechLITE Lancets 30 gauge (lancets) #400 ea NS 12/26/20 09/15/21 Unknown insulin glargine 100 unit/mL (3 10 unit SUBCUT DAILY #1 box MDD up 01/28/21 09/18/21 09/17/21 mL) subcutaneous pen (Lantus to 16 units a day Solostar U-100 Insulin) simvastatin 40 mg tablet 40 mg PO HS #90 tab 02/04/21 09/18/21 09/17/21 furosemide 40 mg tablet (Lasix) 40 mg PO Q OTHER DAY #45 tab 04/03/21 09/18/21 09/17/21 telmisartan 40 mg tablet 40 mg PO DAILY #90 tab 06/10/21 09/18/21 09/17/21 Portable Oxygen #1 ea 07/08/21 09/15/21 Unknown blood sugar diagnostic #100 ea 07/31/21 09/15/21 Unknown flash glucose scanning reader 07/31/21 09/15/21 Unknown (FreeStyle Jelly 2 [place]) flash glucose sensor (FreeStyle 07/31/21 09/15/21 Unknown Jelly 2 Sensor) apixaban 2.5 mg tablet (Eliquis) 2.5 mg PO BID #180 tab 08/18/21 09/18/21 09/17/21 budesonide-formoterol HFA 160 2 puff INHALATION BID #3 inhaler 08/18/21 09/18/21 09/17/21 mcg-4.5 mcg/actuation aerosol inhaler (Symbicort) famotidine 20 mg tablet (Acid 20 mg PO DAILY #30 tab 08/18/21 09/18/21 09/17/21 Accounting/Finance Tutor (famotidine)) albuterol sulfate 90 mcg/actuation 2 puff INHALATION Q6H PRN #3 09/04/21 09/18/21 Unknown aerosol inhaler inhaler gabapentin 600 mg tablet 600 mg PO TID PRN tab 09/15/21 09/18/21 Unknown pantoprazole 40 mg tablet,delayed 40 mg PO BID #60 tab 09/16/21 09/18/21 09/17/21 release Active Medications Generic Name Dose Route Start Last Admin Trade Name Kristian PRN Reason Stop Dose Admin Carvedilol 3.125 mg 09/18/21 11:50 09/18/21 19:49 Carvedilol 3.125 Mg Tab PO 10/18/21 11:49 Not Given BID LEA Famotidine 20 mg 09/18/21 11:50 09/18/21 13:12 Famotidine 20 Mg Tab PO 10/18/21 11:49 20 mg DAILY LEA Administration Fluticasone/Vilanterol 1 puffs 09/18/21 12:30 09/18/21 13:13 Fluticasone/Vilanterol 100/25mcg 14 Puffs/Inhaler INH 10/18/21 12:29 1 puffs DAILY LEA Administration Lactated Ringer's 1,000 mls @ 100 mls/hr 09/18/21 20:30 09/19/21 07:28 Lr IV 10/18/21 20:29 100 mls/hr .Q10H LEA Administration Insulin Aspart 0 units 09/18/21 11:50 09/19/21 08:01 Insulin Aspart Per Unit SC 10/18/21 11:49 Not Given ACHS LEA Pantoprazole Sodium 40 mg 09/18/21 12:30 09/18/21 19:50 Pantoprazole 40 Mg Tab PO 10/18/21 12:29 Not Given BID LEA Simvastatin 40 mg 09/18/21 21:00 09/18/21 19:50 Simvastatin 40 Mg Tab PO 10/18/21 20:59 Not Given HS LEA Telmisartan 40 mg 09/18/21 11:50 09/18/21 13:12 Telmisartan 40 Mg Tab PO 10/18/21 11:49 40 mg DAILY LEA Administration Travoprost 1 drops 09/18/21 21:00 09/18/21 19:50 Travoprost Z 0.004% Oph Soln 2.5 Ml Btl OPB 10/18/21 20:59 1 drops HS LEA Administration Past Medical History Medical History Adverse reaction to anesthetic agent Hard to wake up Asthma CAD (coronary artery disease) NON-OBSTRUCTIVE Cardiorenal syndrome Chronic back pain RLE RADICULOPATHY Chronic hypoxemic respiratory failure Chronic kidney disease, stage III (moderate) Congestive heart failure DIASTOLIC COPD (chronic obstructive pulmonary disease) Depression Diabetes mellitus, type 2 Dyspnea on exertion GERD (gastroesophageal reflux disease) CONTROLLED Glaucoma Headache TEMPORAL BIOPSY DONE IN 2018 Hiatal hernia History of central retinal artery occlusion History of diverticulitis Hx of gout Hyperlipidemia Hypertension Nocturnal hypoxemia On home oxygen therapy WEARS 2L O2 "MOST OF THE TIME" Osteoarthritis Pulmonary HTN SEVERE PULMONARY HTN (RVSP > 60MMHG) Pulmonary hypertension Seizure 18 YEARS AGO; NO ISSUES SINCE Tremor ESSENTIAL TREMOR (HEAD) Valvular disease MODERATE TO SEVERE TR. MODERATE AV SCLEROSIS Past Family History Family History Father , Age 60 from [place] Myocardial infarction Diabetes Hypertension Grandfather Stroke Mother Cancer Hearing loss Allergies Aunt Hearing loss Other Asthma Coronary heart disease Heart disease No family history of adverse response to anesthesia No family history of bleeding disorder Denies family history of Ovarian cancer Prostate cancer Breast cancer Lung cancer Colorectal cancer Past Surgical History Surgical History History of cardiac cath 2008 NO STENTS History of cataract surgery RT/LEFT History of dacryocystorhinostomy bilateral History of dilation and curettage History of surgery CYSTOCELE REPAIR RECTOCELE REPAIR History of temporal artery biopsy 02/08/14= MAC SEDATION WITHOUT ISSUES AT [facility] History of tooth extraction History of total hip arthroplasty (~07/16/09) LEFT Social History Smoking Status: Never smoker Do You Dip or Chew Tobacco: No Hx Alcohol Use: No Hx Substance Use: No substance use type: does not use Physical Exam Vital Signs Last Vital Signs Temp 36.4 C L 09/19/21 07:20 Pulse 67 09/19/21 08:01 Resp 20 09/19/21 07:20 BP 99/58 L 09/19/21 07:20 Pulse Ox 96 09/19/21 07:20 Lab Results Anesthesia Preop Results Results Anesthesia Widget: WBC 7.18 K/uL (4.8-10.8) 09/19/21 Hgb 12.2 g/dL (12.0-16.0) 09/19/21 Hct 36.9 % (37-47) L 09/19/21 Plt 161 K/uL (130-400) 09/19/21 Na 136 mmol/L (136-145) 09/19/21 K 4.6 mmol/L (3.5-5.1) 09/19/21 Cl 105 mmol/L (98-107) 09/19/21 CO2 20 mmol/L (21-32) L 09/19/21 BUN 51 mg/dl (6-23) H 09/19/21 Creat 1.69 mg/dl (0.6-1.2) H 09/19/21 Glucose Level 89 mg/dl (70-99(Fasting)) 09/19/21 POC Glucose 91 mg/dl (70-99) 09/19/21 TSH 3.086 uIu/ml (0.300-4.500) 09/12/21 HA1c 7.7 % (4.5-5.6) H 09/12/21 Urine Color Yellow 09/18/21 Urine Appearance Clear (Clear) 09/18/21 Urine pH 5.0 (4.5-7.5) 09/18/[address] 1.012 (1.000-1.030) 09/18/21 Urine Protein 1+ (Negative) H 09/18/21 Urine Glucose (UA) Negative (Negative) 09/18/21 Urine Ketones Trace (Negative) H 09/18/21 Urine Blood Negative (Negative) 09/18/21 Urine Nitrite Negative (Negative) 09/18/21 Urine Bilirubin Negative (Negative) 09/18/21 Urine Urobilinogen Negative (Negative) 09/18/21 Urine Leukocyte Esterase Negative (Negative) 09/18/21 Urine WBC (Auto) 1-5 /hpf (0-5) 09/18/21 Urine RBC (Auto) 0-4 /hpf (0-4) 09/18/21 Urine Hyaline Casts (Auto) 1-5 /lpf (0-5) 09/18/21 Urine Epithelial Cells (Auto) >30 /lpf (0-5) H 09/18/21 Urine Bacteria (Auto) Negative (Negative) 09/18/21 SARS-CoV-2, RNA, NAAT NEGATIVE (NEGATIVE) 09/18/21 Testing Laboratory Results 09/19/21 06:19 09/19/21 06:19 Urine Color Yellow 09/18/21 13:30 Urine Appearance Clear (Clear) 09/18/21 13:30 Urine pH 5.0 (4.5-7.5) 09/18/21 13:[address] 1.012 (1.000-1.030) 09/18/21 13:30 Urine Protein 1+ (Negative) H 09/18/21 13:30 Urine Glucose (UA) Negative (Negative) 09/18/21 13:30 Urine Ketones Trace (Negative) H 09/18/21 13:30 Urine Nitrite Negative (Negative) 09/18/21 13:30 Ur Leukocyte Esterase Negative (Negative) 09/18/21 13:30 Urine WBC (Auto) 1-5 /hpf (0-5) 09/18/21 13:30 Urine RBC (Auto) 0-4 /hpf (0-4) 09/18/21 13:30 U Hyaline Cast (Auto) 1-5 /lpf (0-5) 09/18/21 13:30 U Epithel Cells (Auto) >30 /lpf (0-5) H 09/18/21 13:30 Urine Bacteria (Auto) Negative (Negative) 09/18/21 13:30 09/19/21 07:55 POC Glucose 91
[2021-09-19] MEDS: FLUTICASONE/VILANTEROL 100/25MCG 14 PUFFS/INHALER INH SCH (09:58)
[2021-09-19] MEDS: carvediloL 3.125 MG TAB PO SCH ×2 (09:59→20:46)
[2021-09-19] MEDS: FAMOTIDINE 20 MG TAB PO SCH (09:59)
[2021-09-19] MEDS: TELMISARTAN 40 MG TAB PO SCH (09:59)
[2021-09-19] MEDS: CALCIUM CARBONATE 1250MG TAB PO SCH (10:00)
[2021-09-19] MEDS: allopurinoL 100 MG TAB PO SCH (10:00)
[2021-09-19] MEDS: FERROUS SULFATE 325 MG TAB PO SCH (10:00)
[2021-09-19] MEDS: PANTOprazole 40 MG TAB PO SCH ×2 (10:13→20:46)
--- NOTE | 2021-09-19 11:55 | Gastroenterology Progress Note ---
Date of Service September 19, 2021 Assessment & Plan (1) Acute upper abdominal pain: Plan: Proceed with EGD now Continue current therapy and supportive care Admission and Anticipated Discharge Date Admission Date: September 18, 2021 Subjective Continues to have mid-epigastric abdominal pain. She states that she has not had any BM's since her arrival. She denies any further complaints. Physical Exam Constitutional: WD/WN, vitals as above Respiratory: normal respiratory effort, lungs clear to auscultation Cardiovascular: RRR, no murmur, no edema Gastrointestinal (Abdomen): Inspection/Auscultation: abdomen normal to inspection; abdomen not distended Percussion/Palpation: + abdomen tender (epigastric) and abdomen soft; no hepatosplenomegaly Skin: no rashes, warm and dry Psychiatric: A+Ox3, euthymic affect Results & Data Results & Data ([facility]) Vital Signs (Past 12 Hours) Vital Signs Temp Pulse Pulse Resp BP Pulse Ox 09/19/21 11:30 36.6 C 67 18 139/74 97 09/19/21 10:00 75 126/73 09/19/21 08:01 67 09/19/21 07:20 36.4 C L 72 20 99/58 L 96 09/19/21 03:45 36.5 C 67 20 117/70 94 09/19/21 01:01 66 PG Care Time/CCT Total # of Minutes Spent Total Time Spent with Patient: Total time spent is greater than 50% in coordination of care (as documented) at patient's floor/unit and/or counseling patient: Coding Level of Care Code None Diagnoses Acute upper abdominal pain R10.10
[2021-09-19] MEDS ORDERED: PROPOFOL IV EMULSION 10 MG/ML 20 ML VIAL IV ONE (12:12)
[2021-09-19] MEDS ORDERED: LIDOCAINE 2% 2 ML VIAL/AMP(20MG/ML) INFIL ONE (12:12)
--- NOTE | 2021-09-19 12:15 | GI REPORT ---
Patient Name: Liz Stokes Procedure Date: 09/19/2021 11:50 AM Date of : 1935 Admit Type: Inpatient Age: 86 Gender: Female Attending MD: Kp Goodwin DO Procedure: Upper GI endoscopy Providers: Kp Goodwin DO Referring MD: Herbert Carias Indications: Epigastric abdominal pain Medicines: Monitored Anesthesia Care Complications: No immediate complications. Estimated Blood Loss: Estimated blood loss: none. Procedure: Pre-Anesthesia Assessment: - Prior to the procedure, a History and Physical was performed, and patient medications and allergies were reviewed. The patient's tolerance of previous anesthesia was also reviewed. The risks and benefits of the procedure and the sedation options and risks were discussed with the patient. All questions were answered, and informed consent was obtained. Prior Anticoagulants: The patient has taken Eliquis (apixaban), last dose was 2 days prior to procedure. ASA Grade Assessment: III - A patient with severe systemic disease. After reviewing the risks and benefits, the patient was deemed in satisfactory condition to undergo the procedure. After obtaining informed consent, the endoscope was passed under direct vision. Throughout the procedure, the patient's blood pressure, pulse, and oxygen saturations were monitored continuously. The Endoscope was introduced through the mouth, and advanced to the second part of duodenum. The upper GI endoscopy was accomplished without difficulty. The patient tolerated the procedure well. Findings: The esophagus was normal. A small hiatal hernia was present. Localized mild inflammation characterized by erythema was found in the gastric antrum. Biopsies were taken with a cold forceps for histology. The examined duodenum was normal. Impression: - Normal esophagus. - Small hiatal hernia. - Gastritis. Biopsied. - Normal examined duodenum. Recommendation: - [facility] for [facility] care. - Advance diet as tolerated. - Continue present medications. - Await pathology results. Kp Goodwin DO 09/19/2021 12:14:26 PM This report has been signed electronically. Note Initiated On: 09/19/2021 11:50 AM Number of Addenda: 0 I attest to the content of the Intraoperative Record and orders documented therein, exceptions below {[id number]}
--- NOTE | 2021-09-19 12:48 | Anesthesiology Progress Note ---
Date of Service September 19, 2021 Anesthesia Post Procedure Vital Signs Vital Signs: Temp Pulse Pulse Resp BP Pulse Ox 09/19/21 12:41 70 16 129/75 98 09/19/21 12:30 69 16 122/60 98 09/19/21 12:19 74 16 99/42 L 96 09/19/21 12:14 70 16 105/49 L 98 09/19/21 11:30 36.6 C 67 18 139/74 97 09/19/21 10:00 75 126/73 09/19/21 08:01 67 09/19/21 07:20 36.4 C L 72 20 99/58 L 96 09/19/21 03:45 36.5 C 67 20 117/70 94 09/19/21 01:01 66 09/18/21 23:10 36.4 C L 69 20 136/77 96 09/18/21 19:36 36.3 C L 64 20 115/68 95 09/18/21 16:00 36.4 C L 71 18 138/80 96 Pain Intensity Abdomen: Pain Intensity: 2 Transfer of Care Handoff Completed per policy Notes Mental Status: alert / awake / arousable and participated in evaluation Patient Amnestic to Procedure: Yes Nausea / Vomiting: adequately controlled Pain: adequately controlled Airway Patency, RR, SpO2: stable & adequate BP & HR: stable & adequate Hydration State: stable & adequate Anesthetic Complications: no major complications apparent and Pt Satisfied with anesthetic care
--- NOTE | 2021-09-19 14:46 | Medical Student Progress Note ---
Date of Service September 19, 2021 Assessment & Plan (1) Abdominal pain: Plan: 86 y/o female who presented with a three week history of intermittent, sharp, right upper quadrant abdominal pain that radiates to her shoulder blade. -Pt had RUQ ultrasound on 09/03 that negative for liver or gallbladder pathology -Pt had abdominal CT on 09/18 that showed colonic diverticulosis without diverticulitis, and a hiatal hernia -GI was consulted -Recommended EGD be preformed -EGD showed small hiatal hernia and gastritis which was biopsied -HIDA scan ordered to further work up patient's radiating right upper quadrant pain -Continue hydration with lactated ringers 100mls/hr -Continue famotidine and protonix Code Status: Full Code Diet: NPO DVT Prophylaxis:Eliquis Admission and Anticipated Discharge Date Admission Date: September 18, 2021 Supervising Attestation I personally examined the patient and verified all zhao points of history and exam, discussed case, and agree with decision making with Rick Rebollar MS2 feeling ok post scope. RUQ pain though. scope without striking findings - HIDA next but would definitely like to have done inpt vitals noted nad heent nc at mmm breathing unlabored no accessory muscles good effort RUQ pain - doubt gastritis is culprit. HIDA next - consumer safety officer't do till wednesday but she prefers to stay - w severity of pain and duration of sx seems reasonable. can treat gastritis over the weekend - while it wouldn't totally heal in that time, if it improves sx more than expected could also sharpen ddx otherwise as above Subjective 86 y/o female with a complex medical history including CHF, COPD, chronic oxygen supplementation, atrial fibrillation, CKD stage IV, and history of PE who presented to the ED on 09/18 for a 3 week history of abdominal pain. The patient states that the pain started three weeks ago with an episode of vomiting. She has not vomited since. She states that the pain is sharp and is located in her right upper quadrant and radiates to her back right under her shoulder blade. She has never experienced pain like this before. The patient states that the pain comes and goes and she cannot pinpoint anything that makes the pain worst or better. She states that it is not associated when she eats meals. She currently is not experiencing any pain. She is not having any fever, chills, headaches, or chest pain. Review of Systems Review of Systems: See HPI Physical Exam Constitutional: Well developed, well nourished female, lying comfortably in bed in no apparent distress Respiratory: Clear to auscultation Cardiovascular: regular rate and rhythm, no murmurs rubs or gallops Gastrointestinal (Abdomen): Non tender to palpation, normoactive bowel sounds Results & Data ([facility]) Vital Signs (Past 12 Hours) Vital Signs Temp Pulse Pulse Resp BP Pulse Ox 09/19/21 12:41 70 16 129/75 98 09/19/21 12:30 69 16 122/60 98 09/19/21 12:19 74 16 99/42 L 96 09/19/21 12:14 70 16 105/49 L 98 09/19/21 11:30 36.6 C 67 18 139/74 97 09/19/21 10:00 75 126/73 09/19/21 08:01 67 09/19/21 07:20 36.4 C L 72 20 99/58 L 96 09/19/21 03:45 36.5 C 67 20 117/70 94 Laboratory Results 09/19/21 09/19/21 09/19/21 07:55 06:19 06:19 WBC 7.18 RBC 3.83 L Hgb 12.2 Hct 36.9 L MCV 96.3 MCH 31.9 MCHC 33.1 RDW Std Deviation 52.5 H RDW Coeff of Terri 15.0 H Plt Count 161 MPV 11.5 H Immature Gran % (Auto) 0.1 Neut % (Auto) 66.3 Lymph % (Auto) 19.8 [place] % (Auto) 9.5 Eos % (Auto) 4.0 Baso % (Auto) 0.3 Neut # (Auto) 4.76 Lymph # (Auto) 1.42 [place] # (Auto) 0.68 H Eos # (Auto) 0.29 Baso # (Auto) 0.02 Immature Gran # (Auto) 0.01 Sodium 136 Potassium 4.6 Chloride 105 Carbon Dioxide 20 L Anion Gap 11 BUN 51 H Creatinine 1.69 H Est Cr Clr Drug Dosing 18.3 Est GFR ( Amer) 31.1 Est GFR (Non-Af Amer) 26.8 BUN/Creatinine Ratio 30.2 H Glucose 89 POC Glucose 91 Calcium 9.1 09/18/21 09/18/21 19:42 17:11 WBC RBC Hgb Hct MCV MCH MCHC RDW Std Deviation RDW Coeff of Terri Plt Count MPV Immature Gran % (Auto) Neut % (Auto) Lymph % (Auto) [place] % (Auto) Eos % (Auto) Baso % (Auto) Neut # (Auto) Lymph # (Auto) [place] # (Auto) Eos # (Auto) Baso # (Auto) Immature Gran # (Auto) Sodium Potassium Chloride Carbon Dioxide Anion Gap BUN Creatinine Est Cr Clr Drug Dosing Est GFR ( Amer) Est GFR (Non-Af Amer) BUN/Creatinine Ratio Glucose POC Glucose 111 H 100 H Calcium
[2021-09-19 17:18] LABS: Adenovirus F 40/41 PCR Not Detected (NotDetected); Astrovirus PCR Not Detected (NotDetected); Campylobacter PCR Not Detected (NotDetected); Cryptosporidium PCR Not Detected (NotDetected); Cyclospora cayetanensis PCR Not Detected (NotDetected); Entamoeba histolytica PCR Not Detected (NotDetected); Enteroaggregative E.coli(EAEC) Not Detected (NotDetected); Enteropathogenic E.coli (EPEC) Not Detected (NotDetected); Enterotoxigenic E.coli (ETEC) Not Detected (NotDetected); Giardia lamblia PCR Not Detected (NotDetected); Norovirus GI/GII PCR Not Detected (NotDetected); Plesiomonas shigelloides PCR Not Detected (NotDetected); Rotavirus A PCR Not Detected (NotDetected); Salmonella PCR Not Detected (NotDetected); Sapovirus PCR Not Detected (NotDetected); Shiga-like Toxin E.coli (STEC) Not Detected (NotDetected); Shigella/Enteroinvasive E.coli Not Detected (NotDetected); Vibrio cholerae PCR Not Detected (NotDetected); Vibrio species PCR Not Detected (NotDetected); Yersinia enterocolitica PCR Not Detected (NotDetected)
--- NOTE | 2021-09-19 18:42 | Billing Data ---
Date of Service September 19, 2021 Coding Level of Care Code 16799 Subseq Obs Care Lvl 3
[2021-09-19 19:24] LABS: Cdiff Antigen Positive; Cdiff Toxin A+B Negative Cdiff Toxin (Negative)
[2021-09-19] MEDS: TRAVOPROST Z 0.004% OPH SOLN 2.5 ML BTL OPB SCH (20:45)
[2021-09-19] MEDS: SIMVASTATIN 40 MG TAB PO SCH (20:46)
[2021-09-19] MEDS: APIXABAN 2.5 MG TAB PO SCH (20:47)
[2021-09-19] MEDS: SUCRALFATE 1 GM/10 ML UDC PO SCH (20:47)
[2021-09-20] MEDS: LACTATED RINGER'S 1,000 ML IV SCH (02:59)
--- NOTE | 2021-09-20 07:08 | Hospitalist Progress Note ---
Date of Service September 20, 2021 Assessment & Plan (1) Abdominal pain: Plan: 86 yo F Hx COPD, DM2, HTN, HLD, AFib on Eliquis, GERD,diastolic CHF, CAD admitted for undifferentiated RUQ abdominal pain with associated decreased PO intake. Abdominal pain, gastritis: Has history of GERD. Admitted with RUQ pain that come in waves, and sometimes radiates to the shoulder blade. 09/03 RUQ US negative for liver or gallbladder pathology. 09/18 CTAP revealed hiatal hernia and diverticulosis, otherwise normal. Stool PCR showed POSITIVE C diff gene but NEGATIVE C diff toxin; no treatment indicated. Stool PCR otherwise normal. GI consulted, recommended EGD which showed gastritis. Continue BID PPI and famotidine for gastritis. Despite negative RUQ US and CTAP, presenting symptoms are suspicious of biliary pathology. HIDA to be performed on Wednesday. Patient desires to stay through the weekend given her pain and decreased PO intake. AFib: Rate controlled at this time. Continue Coreg, Eliquis. COPD: On 2LNC at baseline. Continue home inhalers. Diastolic CHF, CAD, pulmonary HTN: Last Echo 07/2021 showed LVEF >70%, severe pulmonary HTN. Low sodium diet. Holding Lasix for now given patient was dehydrated on admission. CKDIII: Baseline creatinine ~1.8. Creatinine has been stable since admission following IV hydration. Repeat BMP in AM. Code Status: Full Code Diet: DM2, Heart Healthy, Low sodium diet DVT Prophylaxis: Eliquis BID Dispo: Med/Surg with Telemetry (2) Gastritis: (3) Chronic hypoxemic respiratory failure: (4) Atrial fibrillation: (5) Congestive heart failure: (6) Diabetes mellitus, type 2: (7) Hypertension: (8) Hyperlipidemia: (9) CAD (coronary artery disease): (10) COPD (chronic obstructive pulmonary disease): (11) Chronic kidney disease, stage III (moderate): Admission and Anticipated Discharge Date Admission Date: September 18, 2021 Supervising Physician Co-Signing Physician Notes I personally examined the patient and verified all zhao points of history and exam, discussed case, and agree with decision making with Dr Cox basically feels about the same - off and on RUQ pain. no diarrhea vitals noted nad heent nc at mmm breathing unlabored no accessory muscles good effort RUQ pain - doubt gastritis is culprit. HIDA next - can't do till wednesday but she prefers to stay - w severity of pain and duration of sx seems reasonable. treating gastritis over the weekend - while it wouldn't totally heal in that time, if it improves sx more than expected could also sharpen ddx (particularly if symptoms ipmrove and HIDA negative) positive Cdiff gene not toxin - no diarrhea, carrier state. no treatment needed otherwise as above Subjective Patient without acute events overnight. Some "waves" of abdominal pain", but goes away after a few minutes. No complaints of diarrhea overnight, but endorses diarrhea for a few days prior to admission. Review of Systems Review of Systems: All systems reviewed & are unremarkable except as noted in HPI & below Constitutional: no fever, no chills and no malaise Respiratory: no cough and no dyspnea Cardiovascular: no chest pain, no palpitations and no edema Genitourinary: no dysuria and no hematuria Physical Exam Constitutional: WD/WN, vitals as above Respiratory: normal respiratory effort, lungs clear to auscultation Cardiovascular: HR irregularly irregular, no murmurs Gastrointestinal (Abdomen): normal bowel sounds, soft, nontender, no hepatosplenomegaly Skin: no rashes, warm and dry Psychiatric: A+Ox3, euthymic affect Results & Data Results & Data ([facility]) Vital Signs (Past 12 Hours) Vital Signs Temp Pulse Pulse Resp BP Pulse Ox 09/20/21 03:54 36.8 C 71 18 127/70 96 09/19/21 23:12 36.3 C L 67 18 131/74 95 09/19/21 22:30 66 Resident Activity Tracking Resident Involvement: Resident Care Provided Care Provided: Adult Hospital Medicine
[2021-09-20] MEDS: INSULIN ASPART PER UNIT SC SCH ×4 (08:41→20:54)
[2021-09-20] MEDS: FLUTICASONE/VILANTEROL 100/25MCG 14 PUFFS/INHALER INH SCH (08:42)
[2021-09-20] MEDS: SUCRALFATE 1 GM/10 ML UDC PO SCH ×4 (08:42→20:54)
[2021-09-20] MEDS: FAMOTIDINE 20 MG TAB PO SCH (08:42)
[2021-09-20] MEDS: APIXABAN 2.5 MG TAB PO SCH ×2 (08:43→20:54)
[2021-09-20] MEDS: FERROUS SULFATE 325 MG TAB PO SCH (08:43)
[2021-09-20] MEDS: TELMISARTAN 40 MG TAB PO SCH (08:43)
[2021-09-20] MEDS: allopurinoL 100 MG TAB PO SCH (08:43)
[2021-09-20] MEDS: CALCIUM CARBONATE 1250MG TAB PO SCH (08:43)
[2021-09-20] MEDS: PANTOprazole 40 MG TAB PO SCH ×2 (08:43→20:54)
[2021-09-20] MEDS: carvediloL 3.125 MG TAB PO SCH ×2 (08:43→20:57)
--- NOTE | 2021-09-20 15:59 | Billing Data ---
Date of Service September 20, 2021 Coding Level of Care Code 64420 Subseq Hosp Care Lvl 2
[2021-09-20] MEDS: SIMVASTATIN 40 MG TAB PO SCH (20:54)
[2021-09-20] MEDS: TRAVOPROST Z 0.004% OPH SOLN 2.5 ML BTL OPB SCH (20:55)
[2021-09-20] MEDS: GABAPENTIN 600 MG TAB PO PRN (22:56)
[2021-09-21] MEDS ORDERED: ACETAMINOPHEN 325 MG TAB PO ONE (03:56)
[2021-09-21] MEDS ORDERED: ACETAMINOPHEN 325 MG TAB ONE (04:00)
--- NOTE | 2021-09-21 06:47 | Hospitalist Progress Note ---
Date of Service September 21, 2021 Assessment & Plan (1) Abdominal pain: Plan: 86 yo F Hx COPD, DM2, HTN, HLD, AFib on Eliquis, GERD,diastolic CHF, CAD admitted for undifferentiated RUQ abdominal pain with associated decreased PO intake. Abdominal pain, gastritis: -Has history of GERD. -Admitted with colicky RUQ pain that radiates to the right shoulder blade. -09/03 RUQ US negative for liver or gallbladder pathology. -09/18 CTAP revealed hiatal hernia and diverticulosis, otherwise normal. -Stool PCR showed POSITIVE C diff gene but NEGATIVE C diff toxin; no treatment indicated. Stool PCR otherwise normal. -GI consulted, recommended EGD which showed gastritis. -Continue BID PPI, famotidine, Carafate for possible gastritis contribution. -Despite negative RUQ US and CTAP, presenting symptoms are suspicious of biliary pathology. - HIDA to be performed on Wednesday. Patient desires to stay through the weekend given her pain and decreased PO intake. AFib: -Rate controlled at this time. -Continue Coreg, Eliquis. COPD: -On 2LNC as needed at baseline. -Continue home inhalers. Diastolic CHF, CAD, pulmonary HTN: -Last Echo 07/2021 showed LVEF >70%, severe pulmonary HTN. -Low sodium diet. -Holding Lasix for now given patient was dehydrated on admission. CKD III: -Baseline creatinine ~1.8; 1.61 today. -Creatinine has been stable since admission following IV hydration. Code Status: Full Code Diet: DM2, Heart Healthy, Low sodium diet DVT Prophylaxis: Eliquis BID Dispo: Med/Surg (2) Gastritis: (3) Chronic hypoxemic respiratory failure: (4) Atrial fibrillation: (5) Congestive heart failure: (6) Diabetes mellitus, type 2: (7) Hypertension: (8) Hyperlipidemia: (9) CAD (coronary artery disease): (10) COPD (chronic obstructive pulmonary disease): (11) Chronic kidney disease, stage III (moderate): Admission and Anticipated Discharge Date Admission Date: September 20, 2021 Supervising Physician Co-Signing Physician Notes I personally examined the patient and verified all zhao points of history and exam, discussed case, and agree with decision making with Dr Cox seen very briefly as she was on the phone. case d/w dr cox extensively vitals noted nad heent nc at mmm breathing unlabored no accessory muscles good effort RUQ pain - doubt gastritis is culprit. HIDA next - can't do till tomorrow but she prefers to stay - w severity of pain and duration of sx seems reasonable. treating gastritis over the weekend - while it wouldn't totally heal in that time, if it improves sx more than expected could also sharpen ddx (particularly if symptoms ipmrove and HIDA negative) - but sx not seeming to improve at all -- which is not a surprise since this is most likely GB related. if HIDA equivocal would still have surgical opinion. if HIDA completely normal then would consider thoracic radiculopathy or abdominal wall trigger points as other possible etiologies positive Cdiff gene not toxin - no diarrhea, carrier state. no treatment needed otherwise as above Subjective Patient reports one episode of RUQ pain overnight. Colicky in nature. Reports last BM was yesterday, formed, soft. Not recorded by nursing but patient flushed without letting anyone know she had a BM. Review of Systems Review of Systems: All systems reviewed & are unremarkable except as noted in Subjective Physical Exam Constitutional: WD/WN, vitals as above Respiratory: normal respiratory effort, lungs clear to auscultation Gastrointestinal (Abdomen): normal bowel sounds, soft, nontender, no hepatosplenomegaly Skin: no rashes, warm and dry Psychiatric: A+Ox3, euthymic affect Results & Data Results & Data ([facility]) Vital Signs (Past 12 Hours) Vital Signs Temp Pulse Resp BP Pulse Ox 09/20/21 22:34 36.4 C L 69 15 114/66 94 Resident Activity Tracking Resident Involvement: Resident Care Provided Care Provided: Adult Hospital Medicine
[2021-09-21 08:04] LABS: Basophils # (auto) 0.01 K/uL (0-0.2); Basophils % (auto) 0.2 %; Eosinophils # (auto) 0.28 K/uL (0-0.5); Eosinophils % (auto) 4.3 %; Hematocrit (blood only) 35.1 % (37-47); Hemoglobin 11.4 g/dL (12.0-16.0); Immature Granulocytes # (auto) 0.01 K/uL (0.00-0.02); Immature Granulocytes % (auto) 0.2 %; Lymphocytes % (auto) 19.8 %; Mean Corpuscular Hemoglobin 31.7 pg (25-34); Mean Corpuscular Hgb Conc 32.5 g/dL (32-36); Mean Corpuscular Volume 97.5 fL (80-100); Monocytes # (auto) 0.73 K/uL (0.11-0.59); Monocytes % (auto) 11.1 %; Neutrophils # (auto) 4.22 K/uL (1.4-6.5); Neutrophils % (auto) 64.4 %; Platelet Count 135 K/uL (130-400); RDW Coefficient of Variation 15.1 % (11.5-14.5); RDW Standard Deviation 53.8 fL (36.4-46.3); White Blood Count 6.55 K/uL (4.8-10.8)
[2021-09-21 08:24] LABS: Albumin Globulin Ratio 1.1 (0.9-2); Albumin Level 3.4 gm/dl (3.4-5.0); BUN Creatinine Ratio 19.3 (10-20); Bilirubin,Total 0.8 mg/dl (0.2-1.0); Creatinine Clr Calc Pharmacy 19.1 ml/min; Est GFR (Non-African American) 28.5 ml/min; Potassium 4.6 mmol/L (3.5-5.1); Total Protein 6.4 gm/dl (6.0-8.3)
[2021-09-21] MEDS: allopurinoL 100 MG TAB PO SCH (08:26)
[2021-09-21] MEDS: FAMOTIDINE 20 MG TAB PO SCH (08:26)
[2021-09-21] MEDS: SUCRALFATE 1 GM/10 ML UDC PO SCH ×4 (08:26→20:21)
[2021-09-21] MEDS: FERROUS SULFATE 325 MG TAB PO SCH (08:26)
[2021-09-21] MEDS: PANTOprazole 40 MG TAB PO SCH ×2 (08:26→20:19)
[2021-09-21] MEDS: carvediloL 3.125 MG TAB PO SCH ×2 (08:26→20:20)
[2021-09-21] MEDS: TELMISARTAN 40 MG TAB PO SCH (08:26)
[2021-09-21] MEDS: CALCIUM CARBONATE 1250MG TAB PO SCH (08:27)
[2021-09-21] MEDS: APIXABAN 2.5 MG TAB PO SCH ×2 (08:27→20:20)
[2021-09-21] MEDS: FLUTICASONE/VILANTEROL 100/25MCG 14 PUFFS/INHALER INH SCH (08:28)
[2021-09-21] MEDS: INSULIN ASPART PER UNIT SC SCH ×4 (08:42→21:04)
--- NOTE | 2021-09-21 15:59 | Billing Data ---
Date of Service September 21, 2021 Coding Level of Care Code 09317 Subseq Hosp Care Lvl 1
[2021-09-21] MEDS: GABAPENTIN 600 MG TAB PO PRN ×2 (16:29→23:40)
[2021-09-21] MEDS: SIMVASTATIN 40 MG TAB PO SCH (20:19)
[2021-09-21] MEDS: TRAVOPROST Z 0.004% OPH SOLN 2.5 ML BTL OPB SCH (20:26)
[2021-09-22] MEDS ORDERED: ACETAMINOPHEN 325 MG TAB PO PRN (02:07)
--- NOTE | 2021-09-22 06:33 | Hospitalist Progress Note ---
Date of Service September 22, 2021 Assessment & Plan (1) Abdominal pain: Plan: 86 yo F Hx COPD, DM2, HTN, HLD, AFib on Eliquis, GERD,diastolic CHF, CAD admitted for undifferentiated RUQ abdominal pain. Abdominal pain, gastritis: -Has history of GERD. -Admitted with colicky RUQ pain that radiates to the right shoulder blade. -09/03 RUQ US negative for liver or gallbladder pathology. -09/18 CTAP revealed hiatal hernia and diverticulosis, otherwise normal. -GI consulted, recommended EGD which showed gastritis. -Continue BID PPI, famotidine, Carafate for possible gastritis contribution. - HIDA scan neg for biliary pathology -Will check renal US. CT abd showed perinephritic stranding, though worse on L. -Voltaren gel for possible costochondritis -Thoracic spine with arthritis - ? likely source of pain from radicular origin. Follow. Positive C diff gene -Stool PCR showed POSITIVE C diff gene but NEGATIVE C diff toxin; no treatment indicated. Stool PCR otherwise normal. AFib: -Rate controlled at this time. -Continue Coreg, Eliquis. COPD: -On 2LNC as needed at baseline. -Continue home inhalers. Chronic Diastolic CHF, CAD, pulmonary HTN: -Last Echo 07/2021 showed LVEF >70%, severe pulmonary HTN. -Low sodium diet. -Holding Lasix for now given patient was dehydrated on admission. -cumulative 4.6L in 1.1L out. CKD III: -At baseline Cr ~1.6s -Creatinine has been stable since admission following IV hydration. Code Status: Full Code Diet: DM2, Heart Healthy, Low sodium diet Anticoag: Eliquis BID Dispo: Med/Surg (2) Gastritis: (3) Chronic hypoxemic respiratory failure: (4) Atrial fibrillation: (5) Congestive heart failure: (6) Diabetes mellitus, type 2: (7) Hypertension: (8) Hyperlipidemia: (9) CAD (coronary artery disease): (10) COPD (chronic obstructive pulmonary disease): (11) Chronic kidney disease, stage III (moderate): Admission and Anticipated Discharge Date Admission Date: September 20, 2021 Supervising Physician Co-Signing Physician Notes Resident Physician Supervision Note: I independently interviewed and examined the patient and verified the zhao history and physical, reviewed labs and image studies and agree with resident Dr. Joe findings and care plan. Subjective Patient was at HIDA scan and was not seen in-room this morning. PM update: Patient notes that her pain is at RUQ, under/at the rib and wrabs around her flank to the back. It is intermittent; she had it last night preventing her from sleeping. She had some earlier today, but not significantly at the moment. Review of Systems Review of Systems: All systems reviewed & are unremarkable except as noted in HPI & below Physical Exam Physical Exam: General: Grossly A&O. NAD. Cooperative. HEENT: Atraumatic, normocephalic. EOMI Pulm: CTAB. -wheezes, -rales, -rhonchi. No respiratory distress. Cardiac: RRR, -mrg. Radial pulses intact and symmetrical. Abdominal: Nontender, nondistended, soft. Neg em's. RUQ TTP. TTP at R ribs. + mildly pos R CVA ttp. Results & Data Results & Data ([facility]) Vital Signs (Past 12 Hours) Vital Signs vitals stable Temp Pulse Resp BP Pulse Ox 09/21/21 23:32 36.6 C 69 12 117/70 94 Laboratory Results cbc stable. Hb 11.3, stable. 13.9 at admission. bmp stable. Cr 1.64 Diagnostic Findings / HIDA. 1. No evidence for cystic duct obstruction. Resident Activity Tracking Resident Involvement: Resident Care Provided Care Provided: Adult Hospital Medicine
[2021-09-22 07:40] LABS: Basophils # (auto) 0.04 K/uL (0-0.2); Basophils % (auto) 0.6 %; Hematocrit (blood only) 34.8 % (37-47); Hemoglobin 11.3 g/dL (12.0-16.0); Immature Granulocytes # (auto) 0.01 K/uL (0.00-0.02); Immature Granulocytes % (auto) 0.1 %; Lymphocytes # (auto) 1.42 K/uL (1.2-3.4); Lymphocytes % (auto) 21.3 %; Mean Corpuscular Hemoglobin 31.5 pg (25-34); Mean Corpuscular Hgb Conc 32.5 g/dL (32-36); Mean Corpuscular Volume 96.9 fL (80-100); Mean Platelet Volume 12.2 fL (7.4-10.4); Monocytes # (auto) 0.77 K/uL (0.11-0.59); Monocytes % (auto) 11.5 %; Neutrophils # (auto) 4.03 K/uL (1.4-6.5); Neutrophils % (auto) 60.5 %; Platelet Count 131 K/uL (130-400); RDW Coefficient of Variation 15.2 % (11.5-14.5); RDW Standard Deviation 53.7 fL (36.4-46.3); Red Blood Count 3.59 M/uL (4.2-5.4); White Blood Count 6.67 K/uL (4.8-10.8)
[2021-09-22 08:02] LABS: BUN Creatinine Ratio 17.7 (10-20); Calcium 8.8 mg/dl (8.5-10.1); Creatinine Clr Calc Pharmacy 18.8 ml/min; Est GFR (African American) 32.3 ml/min; Est GFR (Non-African American) 27.8 ml/min; Potassium 3.9 mmol/L (3.5-5.1)
--- NOTE | 2021-09-22 08:58 | Nuclear Medicine Report ---
NUCLEAR MEDICINE HEPATOBILIARY SCAN HISTORY: persistent RUQ pain COMPARISON: Abdomen and pelvis CT 09/18/2021. TECHNIQUE: Immediately following the intravenous administration of 5.3 mCi Tc-99m Choletec, dynamic a nterior abdominal imaging was performed. FINDINGS: Uniform hepatic tracer accumulation is shown. Prompt intrahepatic biliary excretion is seen. The gall bladder, common bile duct, and small bowel are all visualized by 33 minutes. This appearance represen ts the normal sequence of biliary excretion. IMPRESSION: 1. No evidence for cystic duct obstruction. ACT 112: Negative or not required by law. Electronically signed by: Efrain Dugan M.D. 09/22/2021 8:57 AM
[2021-09-22] MEDS: CALCIUM CARBONATE 1250MG TAB PO SCH (09:21)
[2021-09-22] MEDS: TELMISARTAN 40 MG TAB PO SCH (09:21)
[2021-09-22] MEDS: APIXABAN 2.5 MG TAB PO SCH ×2 (09:21→21:38)
[2021-09-22] MEDS: FERROUS SULFATE 325 MG TAB PO SCH (09:21)
[2021-09-22] MEDS: carvediloL 3.125 MG TAB PO SCH ×2 (09:21→21:39)
[2021-09-22] MEDS: allopurinoL 100 MG TAB PO SCH (09:21)
[2021-09-22] MEDS: PANTOprazole 40 MG TAB PO SCH ×2 (09:21→21:38)
[2021-09-22] MEDS: SUCRALFATE 1 GM/10 ML UDC PO SCH ×4 (09:22→21:39)
[2021-09-22] MEDS: FAMOTIDINE 20 MG TAB PO SCH (09:22)
[2021-09-22] MEDS: FLUTICASONE/VILANTEROL 100/25MCG 14 PUFFS/INHALER INH SCH (09:22)
[2021-09-22] MEDS: INSULIN ASPART PER UNIT SC SCH ×4 (09:29→21:11)
--- NOTE | 2021-09-22 11:49 | XRay Report ---
XR thoracic spine 3V routine CLINICAL HISTORY: RUQ pain and back pain radiates to shoulder. Evaluate for fracture. COMPARISON STUDY: No previous studies for comparison. TECHNIQUE: AP, lateral and swimmer's views of the thoracic spine. FINDINGS: The bones are diffusely osteopenic. There is no evidence for fracture or malalignment. The heights of the vertebral bodies are maintained. Mild to moderate disc space narrowing is seen through out the thoracic spine. The pedicles and paraspinal soft tissues are normal. IMPRESSION: Osteopenia with no acute abnormality. Degenerative disc disease. ACT 112: Negative or not required by law. Electronically signed by: Eriberto Lunsford M.D. 09/22/2021 11:48 AM
[2021-09-22] MEDS: DICLOFENAC SOD 1% GEL 100 GM TUBE EXT SCH (17:37)
[2021-09-22] MEDS: SIMVASTATIN 40 MG TAB PO SCH (21:37)
[2021-09-22] MEDS: TRAVOPROST Z 0.004% OPH SOLN 2.5 ML BTL OPB SCH (21:39)
[2021-09-23] MEDS: DICLOFENAC SOD 1% GEL 100 GM TUBE EXT SCH ×2 (01:14→12:11)
--- NOTE | 2021-09-23 06:42 | Discharge Summary ---
Date of Service September 23, 2021 Admission HPI Per Admitting Provider Attending: Dr. Apple This is a 86-year-old female that has a past medical history including COPD, CHF, atrial fibrillation, chronic anticoagulation with apixaban twice daily, pulmonary hypertension, chronic hypoxemic respiratory failure, anemia on chronic iron supplement, gout, lumbar spinal stenosis, vitamin D deficiency, GERD, chronic kidney disease stage IV, history of pulmonary embolism, hyponatrem ia history, hiatal hernia, CAD, hypertension, hyperlipidemia, depression, diabetes mellitus type 2 on chronic insulin, valvular heart disease, osteoarthritis, hypothyroidism, tremor. Patient reports that she has had abdominal pain for the last several weeks. About 3 weeks ago she had one episode of vomiting. She reports that since that time she has had loose bowel movements. She is also complaining of every time she eats she has a bowel movement. She has not been able to have anything to ea t of significance. She also states very little fluid intake. CT scan of the abdomen shows some diverticulosis with no other significant issues. Patient is hemodynamically stable. She is not normal sinus rhythm at this time with a heart rate in the 70s. Patient has no significantly imbalance labs other than her chronic kidney disease. BUN is 58, creatinine is 1.77 (baseline). It should be noted that BUN has been above 40 mg/Kavin since April 2021. Patient was seen by Brody Barnhart PA-C last week. She was then seen by Lynne Martinez PA-C from GI. I did have communication with GI this morning. They will plan on doing EGD tomorrow. Patient is a full resuscitation. This was discussed in person with the patient with her daughter present. Vaccinations include Covid vaccination with Pfizer on 10/08/2020 and 10/29/2020. Admission Exam Per Admitting Provider GENERAL : No acute distress EYES: No icterus, gaze conjugate NOSE: No evidence of epistaxis MOUTH: No lesions or candidiasis NECK: Supple LUNGS: Bibasilar crackles. No bronchospasm. HEART: Regular, rate controlled ABDOMEN: Soft, NT, ND, BS Present EXTREMITIES: Trace bilateral LE edema, pedal pulses intact NEURO: A&OX3 Principal Diagnosis right chest wall pain Discharge Exam General: Grossly A&O. NAD. Cooperative. HEENT: Atraumatic, normocephalic. EOMI Pulm: CTAB. -wheezes, -rales, -rhonchi. No respiratory distress. Cardiac: RRR, -mrg. Radial pulses intact and symmetrical. Abdominal: RUQ TTP. No CVA or rib TTP today. Integ: No visible rash and right flank. Discharge Data Allergies Allergy/AdvReac Type Severity Reaction Status Date / Time Sulfa (Sulfonamide Allergy Severe ANAPHYLAXIS; Verified 09/18/21 07:25 Antibiotics) TAKES AMARYL W/O REACTION nystatin Allergy Intermediate Wheezing Verified 09/18/21 07:25 cephalexin [From Keflex] Allergy Mild Headahce; Verified 09/18/21 07:25 Nausea; Rash thyroid, pork Allergy Unknown "ALL Verified 09/18/21 07:25 THYROID AGENTS" amoxicillin [From Augmentin] Allergy Verified 09/18/21 07:25 clavulanic acid Allergy Verified 09/18/21 07:25 [From Augmentin] Cephalosporins AdvReac Mild KEFLEX Verified 09/18/21 07:25 ALLERGY -NAUSEA Consultations 09/18/21 09:34 ED Decision to Admit Stat 09/18/21 11:50 Consult Gastroenterology Routine Procedures Performed Operation Date: 09/19/21 16:30 Actual Procedures p EGD Biopsy Cytology - Kp Blanc Case, DO Ordered Studies 09/22/21 07:12 09/22/21 07:12 Intake and Output 09/23/21 09/23/21 09/23/21 06:59 14:59 22:59 Intake Total 100 / 100 Output Total 400 / 400 Balance -300 / -300 Intake: Oral 100 / 100 Output: Urine 400 / 400 Other: # Unmeasured Voids 1 Weight 58.3 kg Patient Weight 09/24/21 06:59 Weight 58.3 kg Abdomen/Pelvis CT 09/18/21 06:[address] WITHOUT CONTRAST CT DOSE: 257.94 mGy.cm HISTORY: Acute generalized abdominal pain with nausea upper abd pain, nausea TECHNIQUE: Multiaxial CT images of the abdomen and pelvis were performed without contrast. A dose lowering technique was utilized adhering to the principles of ALARA. COMPARISON STUDY: CT abdomen pelvis 09/15/2021 FINDINGS: Cardiomegaly with coronary arterial stents artery calcifications. Trace pericardial effusion. Mild bibasilar atelectasis/scarring. There is no pneumatosis or pneumoperitoneum. The study is mildly motion degraded. Limited exam without the use of contrast. The unenhanced spleen, mildly atrophic pancreas and right adrenal gland are unremarkable. A 2 cm left adrenal gland adenoma is stable. Mildly increased attenuation of the gallbladder may represent biliary sludge. Unremarkable liver. Nonspecific left greater than right perinephric stranding. There is no hyd ronephrosis or urolith identified. Unremarkable urinary bladder, uterus and adnexa. Pelvic structures are suboptimally visualized secondary to streak artifact from left hip total joint arthroplasty. Atherosclerotic plaque of the aorta. There is no adenopathy. Tiny hiatal hernia with mild distal esophageal wall thickening. No bowel obstruction or bowel wall thickening. Colonic diverticulosis without acute diverticulitis. Noninflamed appendix. No ascites or mesenteric inflammation. Tiny fat filled periumbilical hernia. Subcutaneous stranding of the anterior abdominal wall suggestive of additional injection sites. Degenerative changes of the spine, pelvis and hips. Multilevel central canal stenosis of the lumbar spine. IMPRESSION: 1. No bowel obstruction or bowel wall thickening. 2. Colonic diverticulosis without acute diverticulitis. 3. Tiny hiatal hernia with mild distal esophageal wall thickening. 4. Additional findings as above. ACT 112: Negative or not required by law. The above report was generated using voice recognition software. It may contain grammatical, syntax or spelling errors. Electronically signed by: Fede Benitez M.D. 09/18/2021 8:06 AM Hepatobiliary Scan Nuclear Medicine 09/22/21 08:00 NUCLEAR MEDICINE HEPATOBILIARY SCAN HISTORY: persistent RUQ pain COMPARISON: Abdomen and pelvis CT 09/18/2021. TECHNIQUE: Immediately following the intravenous administration of 5.3 mCi Tc- 99m Choletec, dynamic anterior abdominal imaging was performed. FINDINGS: Uniform hepatic tracer accumulation is shown. Prompt intrahepatic biliary excretion is seen. The gallbladder, common bile duct, and small bowel are all vi sualized by 33 minutes. This appearance represents the normal sequence of biliary excretion. IMPRESSION: 1. No evidence for cystic duct obstruction. ACT 112: Negative or not required by law. Electronically signed by: Efrain Dugan M.D. 09/22/2021 8:57 AM Thoracic Spine X-Ray 09/22/21 10:36 XR thoracic spine 3V routine CLINICAL HISTORY: RUQ pain and back pain radiates to shoulder. Evaluate for fracture. COMPARISON STUDY: No previous studies for comparison. TECHNIQUE: AP, lateral and swimmer's views of the thoracic spine. FINDINGS: The bones are diffusely osteopenic. There is no evidence for fracture or malalignment. The heights of the vertebral bodies are maintained. Mild to moderate disc space narrowing is seen throughout the thoracic spine. The pedicles and paraspinal soft tissues are normal. IMPRESSION: Osteopenia with no acute abnormality. Degenerative disc disease. ACT 112: Negative or not required by law. Electronically signed by: Eriberto Lunsford M.D. 09/22/2021 11:48 AM Renal Ultrasound 09/22/21 16:17 RENAL ULTRASOUND HISTORY: R flank pain COMPARISON: Abdomen and pelvis CT 09/18/2021. FINDINGS: Right kidney: 10.3 cm. No hydronephrosis. Moderate cortical thinning with inc reased cortical echogenicity. Left kidney: 8.5 cm. No hydronephrosis. Moderate cortical thinning with increased cortical echogenicity. Bladder: No bladder wall thickening. The bilateral ureteral jets were not identified. IMPRESSION: 1. Moderate cortical thinning with increased cortical echogenicity suggestive of medical renal disease. 2. No hydronephrosis. ACT 112: Negative or not required by law. Electronically signed by: Efrain Dugan M.D. 09/23/2021 8:47 AM Hospital Course (1) Abdominal pain: 86 yo F Hx COPD, DM2, HTN, HLD, AFib on Eliquis, GERD, diastolic CHF, CAD admitted for RUQ abdominal pain most likely of musculoskeletal etiology RUQ abdominal pain, gastritis: -Admitted with colicky RUQ pain that radiates to the right shoulder blade. -09/03 RUQ US negative for liver or gallbladder pathology. -09/18 CTAP revealed hiatal hernia and diverticulosis, otherwise normal. -GI consulted, recommended EGD which showed gastritis. -Continue BID PPI for 4 wks in conjunction of home famotidine for gastritis -HIDA scan neg for biliary pathology -Renal US showing medical renal disease, but no pyelo -Voltaren gel for possible costochondritis -Thoracic spine with arthritis - ? possible source of pain from radicular origin. AFib: -Rate controlled at this time. -Continue Coreg, Eliquis. COPD: -On 2LNC as needed at baseline. -Continue home inhalers. Chronic Diastolic CHF, CAD, pulmonary HTN: -Last Echo 07/2021 showed LVEF >70%, severe pulmonary HTN. -Low sodium diet -Home med clarification: Reviewed 02/20/21 cardiology note. Lasix 40 mg every other day PRN. Positive C diff gene: -Stool PCR showed POSITIVE C diff gene but NEGATIVE C diff toxin; no treatment indicated. Stool PCR otherwise normal. CKD III: -At baseline Cr ~1.6s (2) Gastritis: (3) Chronic hypoxemic respiratory failure: (4) Atrial fibrillation: (5) Congestive heart failure: (6) Diabetes mellitus, type 2: (7) Hypertension: (8) Hyperlipidemia: (9) CAD (coronary artery disease): (10) COPD (chronic obstructive pulmonary disease): (11) Chronic kidney disease, stage III (moderate): Total Time Total Time Spent Total Time Spent (In Minutes): <30 Discharge Plan Discharge Items Patient Disposition: Home - Self-Care Reason For Visit: ABD PAIN Discharge Diagnosis: musculoskeletal right upper quadrant pain Activity: Per Instructions section Non-emergency contact: Primary Care Provider Call non-emergency contact if: you have any medication questions and your symptoms worsen Follow-up/Referrals: Jeyson Peña MD [Primary Care Provider] - 09/26/21 11:00 am (hospital discharge follow up within 1 week) Diet: Carb Consistent or DM2 and Low Sodium (2gm) Addtl Attending Provider Instructions: Hi Ms. Stokes, You were seen at [facility] for right upper quadrant / rib / flank pain. During the hospital admission, extensive workup was performed to rule out possible causes of this. Different types of imaging studies were performed and different organs in the area including liver and kidneys were examined. There was as suspicion of a gallstone, but a special scan called HIDA was performed to look at your bile ducts and there was no stone or obstruction. Xray of your spine was performed to rule out fracture. The cornice maker (GI specialist) looked at your esophagus and stomach using a scope. There was some mild inflammation, so continue your home medications (famotidine and pantoprazole). Because of the workup above, the most likely cause of your pain is thought to be musculoskeletal. Voltaren gel has been prescribed for you and sent to your pharmacy. Please follow up with your primary care doctor within one week of hospital discharge for follow up. No other medications were changed. If you develop any new or worsening symptoms including fever, chills, sweats, chest pain, chest pressure, difficulty breathing, uncontrolled nausea/vomiting, rash, wheezing, passing out or nearly passing out, bleeding, black/bloody bowel movements, or other new or concerning symptoms please call your primary care physician, or call 911 for re-evaluation in the emergency department if you are very concerned. Pending Studies at Discharge: No Stand-Alone Forms: My [employer], Smoking Cessation Medications and DC Order Prescriptions: New diclofenac sodium [Voltaren Arthritis Pain] 1 % Gel 2 g EXT Q8H PRN (Reason: right rib pain) 30 Days Qty: 50 RF: 0 Continued allopurinol 100 mg tablet 200 mg PO QAM Qty: 180 RF: 3 carvedilol 3.125 mg tablet 3.125 mg PO BID Qty: 180 RF: 3 (DME) pen needle, diabetic [BD Ultra-Fine Vielka Pen Needle] 32 gauge x 5/32" needle See Dose Instructions .ROUTE .MEDSUPPLY Qty: 400 RF: 3 Novolog Flexpen U-100 Insulin 100 unit/mL (3 mL) insulin pen See Rx Instructions SUBCUT .COMPLEX 90 Days Qty: 75 RF: 3 (DME) lancets [TechLITE Lancets] 30 gauge misc See Rx Instructions .ROUTE .MEDSUPPLY Qty: 400 RF: 3 Lantus Solostar U-100 Insulin 100 unit/mL (3 mL) insulin pen 10 unit subcut DAILY MDD up to 16 units a day Qty: 1 RF: 3 simvastatin 40 mg tablet 40 mg PO HS Qty: 90 RF: 3 telmisartan 40 mg tablet 40 mg PO DAILY Qty: 90 RF: 3 budesonide-formoterol [Symbicort] 160-4.5 mcg/actuation HFA aerosol inhaler 2 puff inhalation BID Qty: 3 RF: 2 famotidine [Acid Diagnostic Medical Sonographer (famotidine)] 20 mg tablet 20 mg PO DAILY Qty: 30 RF: 5 Eliquis 2.5 mg tablet 2.5 mg PO BID Qty: 180 RF: 3 albuterol sulfate 90 mcg/actuation HFA aerosol inhaler 2 puff inhalation Q6H PRN (Reason: shortness of breath or wheezing) Qty: 3 RF: 1 pantoprazole 40 mg tablet,delayed release (DR/EC) 40 mg PO BID Qty: 60 RF: 2 (DME) FreeStyle Jelly 2 Sensor Kit See Rx Instructions .Route RF: 0 (DME) FreeStyle Jelly 2 [place] Misc See Rx Instructions .Route RF: 0 (DME) blood sugar diagnostic Strip See Rx Instructions .ROUTE .MEDSUPPLY Qty: 100 RF: 3 gabapentin 600 mg tablet 600 mg PO TID PRN (Reason: Pain) RF: 0 calcium carbonate [Calcium 600] 600 mg calcium (1,500 mg) tablet 600 mg PO DAILY Qty: 90 RF: 0 (DME) Portable Oxygen Misc See Rx Instructions .Route Qty: 1 RF: 0 levalbuterol HCl 1.25 mg/3 mL solution for nebulization 1.25 mg INH Q4H PRN (Reason: shortness of breath or wheezing) Qty: 90 RF: 3 glucosamine-chondroitin [Osteo Bi-Flex] 250-200 mg Tablet 2 tab PO BID RF: 0 ferrous sulfate 325 mg (65 mg iron) tablet 325 mg PO DAILY RF: 0 travoprost [Travatan Z] 0.004 % Drops 1 drp OPB HS RF: 0 Changed furosemide [Lasix] 40 mg tablet 40 mg PO Q OTHER DAY PRN (Reason: Edema) Qty: 45 RF: 1 Discharge Orders: Discharge Order (Routine); Ordered 09/23/21 Ordered By: Soy Joe Admission Data Admit Date/Time: 09/20/21 10:35 Attending Provider: Lara Horta Admit Provider: Alejandro Apple Primary Care Provider: Jeyson Peña Other Providers: Alejandro Apple ; Kp Goodwin Other Interventions: Discharge Summary Assessment (RN) Last Done: 09/23/21 14:22 Supervising Physician Co-Signing Physician Notes Resident Physician Supervision Note: I independently interviewed and examined the patient and verified the zhao histor y and physical, reviewed labs and image studies and agree with resident Dr. Joe findings and care plan. Resident Activity Tracking Resident Involvement: Resident Care Provided Care Provided: Adult Hospital Medicine
[2021-09-23] MEDS: FLUTICASONE/VILANTEROL 100/25MCG 14 PUFFS/INHALER INH SCH (08:28)
[2021-09-23] MEDS: carvediloL 3.125 MG TAB PO SCH (08:28)
[2021-09-23] MEDS: FERROUS SULFATE 325 MG TAB PO SCH (08:28)
[2021-09-23] MEDS: SUCRALFATE 1 GM/10 ML UDC PO SCH ×2 (08:28→12:11)
[2021-09-23] MEDS: PANTOprazole 40 MG TAB PO SCH (08:28)
[2021-09-23] MEDS: FAMOTIDINE 20 MG TAB PO SCH (08:28)
[2021-09-23] MEDS: allopurinoL 100 MG TAB PO SCH (08:28)
[2021-09-23] MEDS: CALCIUM CARBONATE 1250MG TAB PO SCH (08:28)
[2021-09-23] MEDS: TELMISARTAN 40 MG TAB PO SCH (08:28)
[2021-09-23] MEDS: APIXABAN 2.5 MG TAB PO SCH (08:28)
--- NOTE | 2021-09-23 08:48 | Ultrasound Report ---
RENAL ULTRASOUND HISTORY: R flank pain COMPARISON: Abdomen and pelvis CT 09/18/2021. FINDINGS: Right kidney: 10.3 cm. No hydronephrosis. Moderate cortical thinning with increased cortical echogeni city. Left kidney: 8.5 cm. No hydronephrosis. Moderate cortical thinning with increased cortical echogenici ty. Bladder: No bladder wall thickening. The bilateral ureteral jets were not identified. IMPRESSION: 1. Moderate cortical thinning with increased cortical echogenicity suggestive of medical renal diseas e. 2. No hydronephrosis. ACT 112: Negative or not required by law. Electronically signed by: Efrain Dugan M.D. 09/23/2021 8:47 AM
[2021-09-23] MEDS: INSULIN ASPART PER UNIT SC SCH ×2 (09:24→12:50)
== END 2021-09-23 16:00 | disposition home or self-care (01) ==
LOC: ED 06:17 → 2N 06:17 → SUATTDRO 10:20 → 2N 10:48 → SUATTDRO 09-20 10:35 → 3N 09-20 13:43

== ENCOUNTER 2022-02-04 11:22 | Inpatient (IN) ==
[2022-02-04] MEDS ORDERED: ALBUT/IPRATROP 3MG/0.5MG NEB 3 ML VIAL NEB STA (11:35)
--- NOTE | 2022-02-04 11:53 | Emergency Department Note ---
Impression & Plan COVID-19, Adult failure to thrive, Acute exacerbation of chronic obstructive pulmonary disease ED Provider Note Name: MARCK BLACKWELL Age: 86 Sex: F Arrives Via: Walk-In Informant: Patient, daughter, granddaughter ED Provider: Nestor Ceballos MD Chief Complaint: Shortness of breath Impression: As per impressions above Medical Decision Making: Very pleasant 86-year-old female with extensive past medical history including COPD, CKD, DM2, GERD, hypertension, pulmonary hypertension, dyslipidemia, CAD arrives for evaluation of worsening cough and shortness of breath over the last 2 weeks. She is clear on infections been sick at least the last 10 to 14 days though worsening cough and shortness of breath the last few days. On examination she is diffusely junky lung sounds with some wheezing. She is not significantly hypoxic though she does appear quite deconditioned and weak at this time. She is given DuoNeb with mild improvement in her cough. Laboratory work-up is consistent with acute COVID. Chest x-ray with small effusion on the right which is new. Given patient's age and worsening status I do not feel it would be reasonable to discharge her home at this time and patient agrees with the fact she is too unwell to go home. I suspect this generalized weakness is secondary to COVID and she likely has a secondary to COPD exacerbation due to this COVID infection. While she is not hypoxic given her lung exam and I think steroids are indicated and that she was given Decadron IV. I discussed the case at length with the patient and her family and all are on board with the plan for monitoring in the hospital and thus hospitalist was consulted for further management. Prior Medical Record and Triage/Nursing Notes reviewed by Me Additional history obtained from chart Differentials:Reactive airway disease, pneumonia, pneumothorax, COPD, CHF, infections, cardiac ischemia, pulmonary embolism, musculoskeletal, gastrointestinal, as well as other pathologies. Vital Signs: reviewed and remarkable for no significant abnormalities Interventions: DuoNeb, Decadron IV Labs:Reviewed and remarkable for positive COVID-19 Imaging:Small right pleural effusion new compared to old chest x-ray per radiol ogy EKG:Per My Interpretation: Indication shortness of breath: Atrial fibrillation at 77 bpm and a QTC of 460. There is no overt ischemia. When compared to EKG of September 18, 2021 no acute changes. Consults:Hospitalist Plan: Disposition:Hospitalization. Condition: Fair History of Present Illness:86-year-old female arrives for evaluation of cough. Patient with 2 weeks of worsening cough. It is associated with shortness of breath, fatigue, decreased appetite. She notes she is now having a productive greenish cough. Notes worse with exertion. Better with rest. No fevers, chills, nausea, vomiting, chest pain, headaches, neck pain, sore throat, abdominal pain, back pain, urinary/bowel symptoms, leg pain, calf pain, leg swelling, bleeding/bruising, rashes nor other signs or symptoms. No medications prior to arrival. No recent antibiotic use. Denies falls, trauma, injury. ROS: See above HPI for pertinent positives & negatives. A total of 10 systems reviewed and were otherwise negative. Past Medical History:See Below Past Surgical History:See Below Family History:See Below Social History:See Below Home Medications:See Below Allergies:See Below Vitals:Blood Pressure: 137/75, Pulse 78, RR 18, T 36.4C, O2 98% on RA Physical Exam: GENERAL: Patient is uncomfortable appearing and in moderate distress. EYES: No scleral icterus, unremarkable pupils. ENT: Mucous membranes dry, no nasal congestion. NECK: No masses appreciated, nomeningismus, trachea is midline. RESPIRATORY: Diffusely junky lung sounds with mild productive cough some mild diffuse wheezing, equal bilaterally CARDIOVASCULAR: Regular rate and rhythm.No murmurs, rubs, gallops appreciated. GASTROINTESTINAL: Abdomen soft, non-tender, no peritonitis.Bowel sounds po sitive.No masses appreciated. BACK: No midline tenderness, no CVA tenderness EXTREMITIES: Normal motion all extremities, no cyanosis, no edema. NEUROLOGIC: Alert and oriented, no acute motor or sensory deficits, no focal weakness, cranial nerves grossly intact. SKIN: No rash, no jaundice, no diaphoresis. PSYCH: Appropriate GCS: 15 ED Course: Times/Reassessments: Patient mildly improved with neb though lung sounds are still quite poor. She is agreeable to hospitalization Nestor Ceballos MD Past Med/Surg History Medical History Adverse reaction to anesthetic agent Hard to wake up Anemia Asthma CAD (coronary artery disease) NON-OBSTRUCTIVE Cardiorenal syndrome Chronic anticoagulation Chronic back pain RLE RADICULOPATHY Chronic hypoxemic respiratory failure Chronic kidney disease, stage III (moderate) Congestive heart failure DIASTOLIC COPD (chronic obstructive pulmonary disease) Decreased oral intake Depression Diabetes mellitus, type 2 Dyspnea on exertion GERD (gastroesophageal reflux disease) CONTROLLED Glaucoma Gout Headache TEMPORAL BIOPSY DONE IN 2018 Hiatal hernia History of central retinal artery occlusion History of diverticulitis History of hypothyroidism EUTHYROID ON MORE RECENT TESTING Hx of gout Hyperlipidemia Hypertension Hyponatremia Lumbar spinal stenosis Nausea Nocturnal hypoxemia On home oxygen therapy WEARS 2L O2 "MOST OF THE TIME" Osteoarthritis Pulmonary HTN SEVERE PULMONARY HTN (RVSP > 60MMHG) Pulmonary hypertension Pulmonary nodule Seizure 18 YEARS AGO; NO ISSUES SINCE Tremor ESSENTIAL TREMOR (HEAD) Valvular disease MODERATE TO SEVERE TR. MODERATE AV SCLEROSIS Vitamin D deficiency Surgical History History of cardiac cath 2008 NO STENTS History of cataract surgery RT/LEFT History of dacryocystorhinostomy bilateral History of dilation and curettage History of surgery CYSTOCELE REPAIR RECTOCELE REPAIR History of temporal artery biopsy 02/08/14= MAC SEDATION WITHOUT ISSUES AT [facility] History of tooth extraction History of total hip arthroplasty (~07/16/09) LEFT Family History Father , Age 60 from [place] Myocardial infarction Diabetes Hypertension Grandfather Stroke Mother Cancer Hearing loss Allergies Aunt Hearing loss Other Asthma Coronary heart disease Heart disease No family history of adverse response to anesthesia No family history of bleeding disorder Denies family history of Ovarian cancer Prostate cancer Breast cancer Lung cancer Colorectal cancer Social History Smoking Status: Never smoker Second Hand Exposure: No; Hx Alcohol Use: No Hx Substance Use: No Preferred Language: Tristanian Communication Ability: Effective Visual Impairment: No Limitations Hearing Ability: Normal Hearing Aid Mechanic Required: No Beliefs That Will Affect Care: None marital status: / Current Living Situation: Alone Current Living Situation Comment: pt is sister's caregiver current occupational status: retired How many Children do You have: 2 Other Information That Helps Us Care for You: No Feels Safe at Home: Yes Safety Concerns: Feels Safe At This Time Childhood Exposure to Second-Hand Smoke: No caffeine: Yes Dental Care, Regularly: Yes Physical Activity Frequency: Does not Exercise Seatbelt Use: always Sunscreen Use: Yes Assistive Devices: Cane, Oxygen - at Night and Walker Allergies Allergies Allergy/AdvReac Type Severity Reaction Status Date / Time Sulfa (Sulfonamide Allergy Severe ANAPHYLAXIS; Verified 02/04/22 15:34 Antibiotics) TAKES AMARYL W/O REACTION nystatin Allergy Intermediate Wheezing Verified 02/04/22 15:34 cephalexin [From Keflex] Allergy Mild Headahce; Verified 02/04/22 15:34 Nausea; Rash thyroid, pork Allergy Unknown "ALL Verified 02/04/22 15:34 THYROID AGENTS" amoxicillin [From Augmentin] Allergy Verified 02/04/22 15:34 clavulanic acid Allergy Verified 02/04/22 15:34 [From Augmentin] Cephalosporins AdvReac Mild KEFLEX Verified 02/04/22 15:34 ALLERGY -NAUSEA Home Meds Home Medications Medication Instructions Recorded Confirmed glucosamine-chondroitin 250 mg-200 2 tab PO BID 05/13/18 02/04/22 mg tablet (Osteo Bi-Flex) ferrous sulfate 325 mg (65 mg 325 mg PO QAM tab 06/24/20 02/04/22 iron) tablet travoprost 0.004 % eye drops 1 drp OPB HS 11/13/20 02/04/22 (Travatan Z) flash glucose scanning reader 07/31/21 01/21/22 (FreeStyle Jelly 2 Ecru) flash glucose sensor (FreeStyle 07/31/21 01/21/22 Jelly 2 Sensor) gabapentin 600 mg tablet 600 mg PO TID tab 09/15/21 02/04/22 blood sugar diagnostic ea 09/26/21 01/21/22 calcium carbonate 600 mg calcium 600 mg PO QAM 02/04/22 02/04/22 (1,500 mg) tablet (Calcium) famotidine 20 mg tablet (Acid 20 mg PO HS 02/04/22 02/04/22 Packager Or Packer And Weigher (famotidine)) insulin glargine 100 unit/mL (3 8 unit SUBCUT HS 02/04/22 02/04/22 mL) subcutaneous pen (Lantus Solostar U-100 Insulin) pantoprazole 40 mg tablet,delayed 40 mg PO BID 02/04/22 02/04/22 release telmisartan 40 mg tablet 40 mg PO QDD 02/04/22 02/04/22 tiotropium bromide 18 mcg capsule 1 cap INHALATION QAM 02/04/22 02/04/22 with inhalation device (Spiriva with HandiHaler) Previous Rx's Medication Instructions Recorded levalbuterol HCl 1.25 mg/3 mL 1.25 mg INH Q4H PRN #90 ml 07/28/19 solution for nebulization TechLITE Lancets 30 gauge (lancets) #400 ea NS 12/26/20 simvastatin 40 mg tablet 40 mg PO HS #90 tab 02/04/21 apixaban 2.5 mg tablet (Eliquis) 2.5 mg PO BID #180 tab 08/18/21 budesonide-formoterol HFA 160 2 puff INHALATION BID #3 inhaler 08/18/21 mcg-4.5 mcg/actuation aerosol inhaler (Symbicort) albuterol sulfate 90 mcg/actuation 2 puff INHALATION Q6H PRN #3 09/04/21 aerosol inhaler inhaler carvedilol 3.125 mg tablet 3.125 mg PO BID #180 tab 09/24/21 Portable Oxygen #1 ea 10/17/21 Novolog Flexpen U-100 Insulin 100 See Rx Instructions SUBCUT 10/28/21 unit/mL (3 mL) subcutaneous .COMPLEX 90 Days #30 ml NS (insulin aspart U-100) allopurinol 100 mg tablet 200 mg PO QAM #180 tab 12/19/21 furosemide 40 mg tablet (Lasix) 40 mg PO Q OTHER DAY PRN #45 tab 12/22/21 BD Ultra-Fine Vielka Pen Needle 32 #400 ea NS 01/15/22 gauge x 5/32" (pen needle, diabetic) Results & Data (ED) Vital Signs Vital Signs - 24 hr 02/04/22 11:25 Temperature 36.4 C L Temperature Source Oral Pulse Rate 78 Respiratory Rate 18 Respiratory Effort / Characteristics Non-Labored Respiratory Depth Normal Blood Pressure 137/75 Blood Pressure Mean 95 Pulse Oximetry 98 Oxygen Delivery Method Room Air Sepsis Recent Fever Within 48 Hours No Sepsis New/Unexplained Change in Mental Status No Sepsis Action Taken by Nursing No Action Required Laboratory Data Result diagrams: 02/06/22 06:00 02/06/22 06:00 Lab Results 02/04/22 02/04/22 02/04/22 Range/Units 12:09 12:18 12:20 WBC 11.64 H (4.8-10.8) K/uL RBC 3.51 L (4.2-5.4) M/uL Hgb 11.1 L (12.0-16.0) g/dL Hct 34.0 L (37-47) % MCV 96.9 (80-100) fL MCH 31.6 (25-34) pg MCHC 32.6 (32-36) g/dL RDW Std Deviation 51.0 H (36.4-46.3) fL RDW Coeff of Terri 14.6 H (11.5-14.5) % Plt Count 247 (130-400) K/uL MPV 11.6 H (7.4-10.4) fL Immature Gran % (Auto) 0.9 % Neut % (Auto) 75.6 % Lymph % (Auto) 12.5 % [place] % (Auto) 6.9 % Eos % (Auto) 3.8 % Baso % (Auto) 0.3 % Neut # (Auto) 8.80 H (1.4-6.5) K/uL Lymph # (Auto) 1.46 (1.2-3.4) K/uL [place] # (Auto) 0.80 H (0.11-0.59) K/uL Eos # (Auto) 0.44 (0-0.5) K/uL Baso # (Auto) 0.03 (0-0.2) K/uL Immature Gran # (Auto) 0.11 H (0.00-0.02) K/uL PT (9.0-12.0) Seconds INR (0.9-1.1) Sodium (136-145) mmol/L Potassium (3.5-5.1) mmol/L Chloride (98-107) mmol/L Carbon Dioxide (21-32) mmol/L Anion Gap (3-11) BUN (6-23) mg/dl Creatinine (0.6-1.2) mg/dl Est Cr Clr Drug Dosing ml/min Est GFR ( Amer) ml/min Est GFR (Non-Af Amer) ml/min BUN/Creatinine Ratio (10-20) Glucose (70-99(Fasting)) mg/dl Calcium (8.5-10.1) mg/dl Magnesium (1.7-2.4) mg/dl Total Bilirubin (0.2-1.0) mg/dl Direct Bilirubin (0-0.2) mg/dl AST (13-39) U/L ALT (7-52) U/L Alkaline Phosphatase (34-104) U/L Troponin I High Sens (0-14) pg/ml Total Protein (6.0-8.3) gm/dl Albumin (3.4-5.0) gm/dl Urine Color Yellow Urine Appearance Turbid A (Clear) Urine pH 5.5 (4.5-7.5) Ur Specific [place] 1.014 (1.000-1.030) Urine Protein 1+ H (Negative) Urine Glucose (UA) Negative (Negative) Urine Ketones Negative (Negative) Urine Blood 1+ H (Negative) Urine Nitrite Negative (Negative) Urine Bilirubin Negative (Negative) Urine Urobilinogen Negative (Negative) Ur Leukocyte Esterase 3+ H (Negative) Urine WBC (Auto) >30 H (0-5) /hpf Urine RBC (Auto) 5-10 H (0-4) /hpf U Hyaline Cast (Auto) 1-5 (0-5) /lpf U Epithel Cells (Auto) >30 H (0-5) /lpf Urine Bacteria (Auto) 4+ H (Negative) Adenovirus (PCR) Not Detected (NotDetected) B. pertussis DNA (PCR) Not Detected (NotDetected) B.parapertussis DNA PCR Not Detected (NotDetected) C. pneumoniae DNA (PCR) Not Detected (NotDetected) Coronavirus OC43 (PCR) Not Detected (NotDetected) Coronavirus HKU1 (PCR) Not Detected (NotDetected) Coronavirus 229E (PCR) Not Detected (NotDetected) SARS-CoV-2 (PCR) DETECTED A* (NotDetected) Coronavirus NL63 (PCR) Not Detected (NotDetected) Human Metapneumovir PCR Not Detected (NotDetected) Influenza Type A (PCR) Not Detected (NotDetected) Influenza Type B (PCR) Not Detected (NotDetected) M. pneumoniae (PCR) Not Detected (NotDetected) Parainfluenza 1 (PCR) Not Detected (NotDetected) Parainfluenza 2 (PCR) Not Detected (NotDetected) Parainfluenza 3 (PCR) Not Detected (NotDetected) Parainfluenza 4 (PCR) Not Detected (NotDetected) RSV (PCR) Not Detected (NotDetected) Entero/Rhino (PCR) Not Detected (NotDetected) 02/04/22 02/04/22 Range/Units 12:20 12:20 WBC (4.8-10.8) K/uL RBC (4.2-5.4) M/uL Hgb (12.0-16.0) g/dL Hct (37-47) % MCV (80-100) fL MCH (25-34) pg MCHC (32-36) g/dL RDW Std Deviation (36.4-46.3) fL RDW Coeff of Terri (11.5-14.5) % Plt Count (130-400) K/uL MPV (7.4-10.4) fL Immature Gran % (Auto) % Neut % (Auto) % Lymph % (Auto) % [place] % (Auto) % Eos % (Auto) % Baso % (Auto) % Neut # (Auto) (1.4-6.5) K/uL Lymph # (Auto) (1.2-3.4) K/uL [place] # (Auto) (0.11-0.59) K/uL Eos # (Auto) (0-0.5) K/uL Baso # (Auto) (0-0.2) K/uL Immature Gran # (Auto) (0.00-0.02) K/uL PT 12.0 (9.0-12.0) Seconds INR 1.1 (0.9-1.1) Sodium 135 L (136-145) mmol/L Potassium 5.1 (3.5-5.1) mmol/L Chloride 106 (98-107) mmol/L Carbon Dioxide 21 (21-32) mmol/L Anion Gap 8 (3-11) BUN 52 H (6-23) mg/dl Creatinine 1.74 H (0.6-1.2) mg/dl Est Cr Clr Drug Dosing 17.6 ml/min Est GFR ( Amer) 30.0 ml/min Est GFR (Non-Af Amer) 25.9 ml/min BUN/Creatinine Ratio 29.9 H (10-20) Glucose 168 H (70-99(Fasting)) mg/dl Calcium 9.4 (8.5-10.1) mg/dl Magnesium 2.1 (1.7-2.4) mg/dl Total Bilirubin 0.5 (0.2-1.0) mg/dl Direct Bilirubin 0.1 (0-0.2) mg/dl AST 25 (13-39) U/L ALT 33 (7-52) U/L Alkaline Phosphatase 91 (34-104) U/L Troponin I High Sens 21.4 H (0-14) pg/ml Total Protein 7.5 (6.0-8.3) gm/dl Albumin 3.8 (3.4-5.0) gm/dl Urine Color Urine Appearance (Clear) Urine pH (4.5-7.5) Ur Specific [place] (1.000-1.030) Urine Protein (Negative) Urine Glucose (UA) (Negative) Urine Ketones (Negative) Urine Blood (Negative) Urine Nitrite (Negative) Urine Bilirubin (Negative) Urine Urobilinogen (Negative) Ur Leukocyte Esterase (Negative) Urine WBC (Auto) (0-5) /hpf Urine RBC (Auto) (0-4) /hpf U Hyaline Cast (Auto) (0-5) /lpf U Epithel Cells (Auto) (0-5) /lpf Urine Bacteria (Auto) (Negative) Adenovirus (PCR) (NotDetected) B. pertussis DNA (PCR) (NotDetected) B.parapertussis DNA PCR (NotDetected) C. pneumoniae DNA (PCR) (NotDetected) Coronavirus OC43 (PCR) (NotDetected) Coronavirus HKU1 (PCR) (NotDetected) Coronavirus 229E (PCR) (NotDetected) SARS-CoV-2 (PCR) (NotDetected) Coronavirus NL63 (PCR) (NotDetected) Human Metapneumovir PCR (NotDetected) Influenza Type A (PCR) (NotDetected) Influenza Type B (PCR) (NotDetected) M. pneumoniae (PCR) (NotDetected) Parainfluenza 1 (PCR) (NotDetected) Parainfluenza 2 (PCR) (NotDetected) Parainfluenza 3 (PCR) (NotDetected) Parainfluenza 4 (PCR) (NotDetected) RSV (PCR) (NotDetected) Entero/Rhino (PCR) (NotDetected) Administered Medications Allopurinol (Allopurinol 100 Mg Tab) 200 mg PO QAM [facility] Stop: 03/07/22 08:59 Last Admin: 02/06/22 09:01 Dose: 200 mg Documented by: [id number] Admin: 02/05/22 08:32 Dose: 200 mg Documented by: [id number] Apixaban (Apixaban 2.5 Mg Tab) 2.5 mg PO BID [facility] Stop: 03/06/22 20:59 Last Admin: 02/06/22 08:11 Dose: 2.5 mg Documented by: [id number] Admin: 02/05/22 21:30 Dose: 2.5 mg Documented by: [id number] Admin: 02/05/22 08:31 Dose: 2.5 mg Documented by: [id number] Admin: 02/04/22 21:36 Dose: 2.5 mg Documented by: [id number] Carvedilol (Carvedilol 3.125 Mg Tab) 3.125 mg PO BIDM [facility] Stop: 03/06/22 20:59 Last Admin: 02/06/22 07:57 Dose: Not Given Documented by: [id number] Admin: 02/05/22 17:12 Dose: 3.125 mg Documented by: [id number] Admin: 02/05/22 08:32 Dose: 3.125 mg Documented by: [id number] Admin: 02/04/22 21:37 Dose: 3.125 mg Documented by: [id number] Cefdinir (Cefdinir 300 Mg Cap) 300 mg PO DAILY [facility]; Protocol Stop: 02/11/22 08:59 Last Admin: 02/06/22 09:02 Dose: 300 mg Documented by: [id number] Famotidine (Famotidine 20 Mg Tab) 20 mg PO Q2D [facility]; Protocol Stop: 03/07/22 08:59 Last Admin: 02/05/22 08:33 Dose: 20 mg Documented by: [id number] Ferrous Sulfate (Ferrous Sulfate 325 Mg Tab) 325 mg PO DAILY [facility] Stop: 03/07/22 08:59 Last Admin: 02/06/22 08:12 Dose: 325 mg Documented by: [id number] Admin: 02/05/22 08:33 Dose: 325 mg Documented by: [id number] Fluticasone/Vilanterol (Fluticasone/Vilanterol 100/25mcg 14 Puffs/Inhaler) 1 puffs INH DAILY [facility]; Protocol Stop: 03/07/22 08:59 Last Admin: 02/06/22 08:09 Dose: 1 puffs Documented by: [id number] Admin: 02/05/22 08:35 Dose: 1 puffs Documented by: [id number] Dexamethasone 6 mg/ Syringe 1.5 mls @ 1 mls/min IV DAILY [facility] Stop: 02/15/22 08:59 Last Admin: 02/06/22 08:35 Dose: 1 mls/min Documented by: [id number] Admin: 02/05/22 08:36 Dose: 1 mls/min Documented by: [id number] Insulin Aspart (Insulin Aspart Per Unit) 0 units SC ACHS [facility] Stop: 03/06/22 17:29 Last Admin: 02/06/22 08:34 Dose: 4 units Documented by: [id number] Cosigned by: [id number] Admin: 02/05/22 21:00 Dose: Not Given Documented by: [id number] Admin: 02/05/22 17:11 Dose: 8 units Documented by: [id number] Cosigned by: [id number] Admin: 02/05/22 12:26 Dose: 7 units Documented by: [id number] Cosigned by: [id number] Admin: 02/05/22 08:21 Dose: 4 units Documented by: [id number] Cosigned by: [id number] Admin: 02/04/22 21:57 Dose: 3 units Documented by: [id number] Cosigned by: [id number] Admin: 02/04/22 19:34 Dose: 2 units Documented by: [id number] Cosigned by: [id number] Insulin Glargine (Insulin Glargine Solostar 100 Units/Ml 3 Ml Pen) 24 units SC DAILY [facility] Stop: 03/08/22 08:59 Last Admin: 02/06/22 08:35 Dose: 24 units Documented by: [id number] Cosigned by: [id number] Pantoprazole Sodium (Pantoprazole 40 Mg Tab) 40 mg PO BID [facility] Stop: 03/06/22 20:59 Last Admin: 02/06/22 08:10 Dose: 40 mg Documented by: [id number] Admin: 02/05/22 20:54 Dose: 40 mg Documented by: [id number] Admin: 02/05/22 08:34 Dose: 40 mg Documented by: [id number] Admin: 02/04/22 21:36 Dose: 40 mg Documented by: [id number] Polyethylene Glycol (Polyethylene (Miralax) 17 Gm Pack) 17 gm PO BID [facility] Stop: 03/07/22 09:29 Last Admin: 02/06/22 09:02 Dose: 17 gm Documented by: [id number] Admin: 02/05/22 20:54 Dose: 17 gm Documented by: [id number] Admin: 02/05/22 09:52 Dose: 17 gm Documented by: [id number] Simvastatin (Simvastatin 40 Mg Tab) 40 mg PO HS [facility] Stop: 03/06/22 20:59 Last Admin: 02/05/22 21:31 Dose: 40 mg Documented by: [id number] Admin: 02/04/22 21:36 Dose: 40 mg Documented by: [id number] Umeclidinium [place] (Umeclidinium [place] 62.5mcg/Blister 7 Puffs/Inhaler) 1 puffs INH QAM [facility]; Protocol Stop: 03/07/22 08:59 Last Admin: 02/06/22 08:09 Dose: 1 puffs Documented by: [id number] Admin: 02/05/22 08:35 Dose: 1 puffs Documented by: [id number] Discontinued Medications Albuterol (Albut/Ipratrop 3mg/0.5mg Neb 3 Ml Vial) 3 ml NEB NOW STA; Protocol Stop: 02/04/22 11:36 Last Admin: 02/04/22 12:23 Dose: 3 ml Documented by: [id number] Dexamethasone Sodium Phosphate (DexamethasonePf 10 Mg/Ml Vial) 10 mg IV NOW ONE Stop: 02/04/22 14:04 Last Admin: 02/04/22 14:35 Dose: 10 mg Documented by: [id number] Doxycycline Hyclate (Doxycycline Hyclate 100 Mg Cap) 100 mg PO BID [facility] Stop: 02/09/22 20:59 Last Admin: 02/05/22 21:30 Dose: 100 mg Documented by: [id number] Admin: 02/05/22 08:32 Dose: 100 mg Documented by: [id number] Admin: 02/04/22 21:36 Dose: 100 mg Documented by: [id number] Sodium Chloride (Nss 1000ml) 500 mls @ 999 mls/hr IV .Q31M ONE Stop: 02/04/22 13:27 Last Infusion: 02/04/22 13:57 Dose: 0 mls/hr Documented by: [id number] Admin: 02/04/22 13:11 Dose: 999 mls/hr Documented by: [id number] Sodium Chloride (Nss 1000ml) 500 mls @ 999 mls/hr IV .Q31M ONE Stop: 02/05/22 09:52 Last Infusion: 02/05/22 10:38 Dose: 0 mls/hr Documented by: [id number] Admin: 02/05/22 09:51 Dose: 999 mls/hr Documented by: [id number] Sodium Chloride (Nss 1000ml) 1,000 mls @ 125 mls/hr IV .Q8H [facility] Stop: 02/05/22 20:29 Last Infusion: 02/05/22 20:40 Dose: 0 mls/hr Documented by: [id number] Admin: 02/05/22 12:40 Dose: 125 mls/hr Documented by: [id number] Insulin Human Regular 5 units/ (Syringe) 5 mls @ 30 mls/min IV ONE ONE Stop: 02/05/22 13:01 Last Admin: 02/05/22 13:31 Dose: 30 mls/min Documented by: [id number] Cosigned by: [id number] Insulin Aspart (Insulin Aspart Per Unit) 3 units SC ONE ONE Stop: 02/05/22 13:01 Last Admin: 02/05/22 13:30 Dose: 3 units Documented by: [id number] Cosigned by: [id number] Insulin Aspart (Insulin Aspart Per Unit) 0 units SC 0000,0400 [facility] Stop: 02/06/22 04:01 Last Admin: 02/06/22 04:09 Dose: 1 units Documented by: [id number] Cosigned by: [id number] Admin: 02/06/22 00:15 Dose: Not Given Documented by: [id number] Insulin Glargine (Insulin Glargine Solostar 100 Units/Ml 3 Ml Pen) 8 units SC BID [facility] Stop: 03/06/22 20:59 Last Admin: 02/05/22 08:21 Dose: 8 units Documented by: [id number] Cosigned by: [id number] Admin: 02/04/22 21:58 Dose: 8 units Documented by: [id number] Cosigned by: [id number] Insulin Glargine (Insulin Glargine Solostar 100 Units/Ml 3 Ml Pen) 15 units SC ONE ONE Stop: 02/05/22 13:01 Last Admin: 02/05/22 13:30 Dose: 15 units Documented by: [id number] Cosigned by: [id number] Discharge Plan Visit Data Chief Complaint: Cough Stated Complaint: COUGH FOR 2 WEEKS, CONGESTION ED Provider: Nestor Ceballos Discharge Problem: COVID-19, Adult failure to thrive, Acute exacerbation of chronic obstructive pu lmonary disease Patient Disposition: Admitted As Inpatient Discharge Instructions Interventions: ED Discharge Assessment Last Done: 02/05/22 00:39
--- NOTE | 2022-02-04 12:07 | XRay Report ---
XR chest 1V portable CLINICAL HISTORY: Shortness of breath. COMPARISON STUDY: Chest CT January 14, 2021. Chest radiograph September 11, 2021. FINDINGS: There is no pneumothorax. Moderate cardiomegaly is noted. There is mild blunting of the rig ht costophrenic angle. No evidence for pulmonary edema. There is no consolidation to suggest pneumoni a. IMPRESSION: 1. No acute cardiopulmonary findings. Cardiomegaly. 2. Possible trace right pleural effusion. ACT 112: Negative or not required by law. Electronically signed by: Scottie Nova M.D. 02/04/2022 12:05 PM
[2022-02-04] MEDS ORDERED: SODIUM CHLORIDE 0.9% 1000ML 500 ML IV ONE (12:57)
[2022-02-04 13:11] LABS: INR 1.1 (0.9-1.1)
[2022-02-04 13:15] LABS: Appearance Urine Turbid (Clear); Bacteria Urine Automated 4+ (Negative); Bilirubin Urine Negative (Negative); Blood Urine 1+ (Negative); Color Urine Yellow; Epithelial Cell Urine Auto >30 /lpf (0-5); Glucose Urine UA Negative (Negative); Ketones Urine Negative (Negative); Leukocyte Esterase Urine 3+ (Negative); Nitrite Urine Negative (Negative); Protein Urine 1+ (Negative); Specific Gravity Urine 1.014 (1.000-1.030); Urobilinogen Urine Negative (Negative); WBC Urine Automated >30 /hpf (0-5); pH Urine 5.5 (4.5-7.5)
[2022-02-04 13:21] LABS: Troponin I High Sensitivity 21.4 pg/ml (0-14)
[2022-02-04 13:26] LABS: Albumin Level 3.8 gm/dl (3.4-5.0); BUN Creatinine Ratio 29.9 (10-20); Bilirubin Direct 0.1 mg/dl (0-0.2); Bilirubin,Total 0.5 mg/dl (0.2-1.0); Calcium 9.4 mg/dl (8.5-10.1); Creatinine Clr Calc Pharmacy 17.6 ml/min; Est GFR (Non-African American) 25.9 ml/min; Magnesium 2.1 mg/dl (1.7-2.4); Potassium 5.1 mmol/L (3.5-5.1); Total Protein 7.5 gm/dl (6.0-8.3)
[2022-02-04 13:37] LABS: Adenovirus PCR Not Detected (NotDetected); Bordetella parapertussis PCR Not Detected (NotDetected); Bordetella pertussis PCR Not Detected (NotDetected); Chlamydia pneumoniae PCR Not Detected (NotDetected); Coronavirus 229E PCR Not Detected (NotDetected); Coronavirus HKU1 PCR Not Detected (NotDetected); Coronavirus NL63 PCR Not Detected (NotDetected); Coronavirus OC43PCR Not Detected (NotDetected); Human Metapneumovirus PCR Not Detected (NotDetected); Influenza A PCR Not Detected (NotDetected); Influenza B PCR Not Detected (NotDetected); Mycoplasma pneumoniae PCR Not Detected (NotDetected); Parainfluenza Virus 1 PCR Not Detected (NotDetected); Parainfluenza Virus 2 PCR Not Detected (NotDetected); Parainfluenza Virus 3 PCR Not Detected (NotDetected); Parainfluenza Virus 4 PCR Not Detected (NotDetected); Respiratory Syncytial VirusPCR Not Detected (NotDetected); Rhinovirus/Enterovirus PCR Not Detected (NotDetected)
[2022-02-04 13:44] LABS: Coronavirus CoV-2 (COVID19)PCR DETECTED (NotDetected)
[2022-02-04 13:52] LABS: Basophils # (auto) 0.03 K/uL (0-0.2); Basophils % (auto) 0.3 %; Eosinophils # (auto) 0.44 K/uL (0-0.5); Eosinophils % (auto) 3.8 %; Hemoglobin 11.1 g/dL (12.0-16.0); Immature Granulocytes # (auto) 0.11 K/uL (0.00-0.02); Immature Granulocytes % (auto) 0.9 %; Lymphocytes # (auto) 1.46 K/uL (1.2-3.4); Lymphocytes % (auto) 12.5 %; Mean Corpuscular Hemoglobin 31.6 pg (25-34); Mean Corpuscular Hgb Conc 32.6 g/dL (32-36); Mean Corpuscular Volume 96.9 fL (80-100); Mean Platelet Volume 11.6 fL (7.4-10.4); Monocytes % (auto) 6.9 %; Neutrophils % (auto) 75.6 %; Platelet Count 247 K/uL (130-400); RDW Coefficient of Variation 14.6 % (11.5-14.5); Red Blood Count 3.51 M/uL (4.2-5.4); White Blood Count 11.64 K/uL (4.8-10.8)
[2022-02-04] MEDS ORDERED: dexAMETHasone**PF** 10 MG/ML VIAL IV ONE (14:03)
--- NOTE | 2022-02-04 14:18 | History & Physical Report ---
Date of Service February 04, 2022 Assessment & Plan (1) Dysphonia: (2) Gastritis: (3) Chronic hypoxemic respiratory failure: (4) Pulmonary hypertension: (5) On home oxygen therapy: (6) Atrial fibrillation: (7) Chronic kidney disease, stage IV (severe): (8) Congestive heart failure: (9) COPD (chronic obstructive pulmonary disease): (10) CAD (coronary artery disease): (11) Hypertension: (12) Diabetes mellitus, type 2: (13) GERD (gastroesophageal reflux disease): (14) COVID-19: Plan: Liz is an 86-year-old female with past medical history of CAD, hypertension, hyperlipidemia, diabetes type 2, CHF, A. fib on anticoagulation, home oxygen, pulmonary hypertension, and GERD who presents with fatigue and who is COVID- positive. Fatigue, shortness of breath, decreased appetite 2/2 COVID Symptoms began 10 days ago Does have productive greenish cough Shortness of breath worsened with exertion, does have 2 L oxygen requirement at night and PRN with exertion. - COVID + - Vaccinated with booster - Fatigue with exertion Some scattered expiratory wheezes consistent with COPD exacerbation managed as below COPD exacerbation COPD with exacerbation 2/2 COVID - Increased yellow sputum ~1 week after covid sx FEV1/FVC 60%, FEV1 0.94 60% 09/2021, with chronic hypoxemic respiratory failure on 2 L nightly Continue Symbicort - Continue Spiriva Received dexamethasone 10 mg IV x1 in ER Continue dexamethasone 6 mg daily for 10-day total course Nebs as needed doxy 100mg bid x5 days Dysphonia Intermittent with history of flexible video stroboscopy which showed thickened secretions Continue PPI therapy, famotidine 20 mg nightly CKD 3 Baseline EGFR approximately 2930 Follows with [facility] Renally dose medications BMP daily - Admit Cr 1.74 - Baseline cr ~1.6-1.7 Troponin Elevation - HS-trop 21.4. No chest pain - Trend - EKG: Sleep apnea CPAP nightly Pulmonary hypertension Home oxygen requirement of 2 L at night Pulm report 11/18/2021 ICS/LABA Symbicort. Spiriva has been stopped previously for unclear reasons Suspected group 2 disease from heart failure with preserved ejection fraction and longstanding hypertension by echo Pulmonary hypertension specific therapy contraindicated No evidence of primary parenchymal process, stable PFTs Heart cath and echo as noted Diuretics deferred to PCP Recommended SGLT2 evaluation Continued on Lasix 40 mg every other day and as needed for weight gain SGLT2 deferred to follow-up appointment Atrial fibrillation Persistent, rate controlled & Eliquis Continue Eliquis Continue carvedilol - Rate controlled on admit Heart failure with preserved ejection fraction Right heart cath [facility] 11/2021: RA 14, RV 70/12, PA 70/31 (44), PAWP 24, Adi CO/CI 3.0/1.9, Thermo CO/CI 1.9/1.2, PaO2 50% - Echo 07/2021: Small LV, moderate LVH, LVEF greater than 70%, RV mildly dilated borderline RV function. Mild mitral stenosis, mild MR, moderate to severe TR. Estimated PASP 95-100, RA 8 No history of occlusive CAD Continue simvastatin Continue telmisartan Continue Lasix 40 mg every other day as needed Continue carvedilol 3.125 mg p.o. twice daily Type 2 diabetes mellitus Last A1c 7.5% Loosened A1c due to hypoglycemic episodes and age On basal 8 units and SSI at home Continue basal/bolus DVT PPx: On DOAC Diet: DM CODE STATUS: FUll, 1-2 rounds CPD only per pt Dispo: Med Surg History of Present Illness Primary Care Provider: Jeyson Peña MD Liz is an 86-year-old female with past medical history of CAD, hypertension, h yperlipidemia, diabetes type 2, CHF, A. fib on anticoagulation, home oxygen, pulmonary hypertension, and GERD who presents with fatigue and who is COVID- positive. Cough started ~10 days ago. Seemed ot get a little better then 'coughing an awful lot last night.' No falls Feels fatigued, but no falls Has been working with sister to get a house cleaned up for sale Can go up steps at her place, but does feel fatigued doing so. No chest pain No fevers, chills, or sweats Cough is productive for clearish to light yellow mucous Decreased appetite, but some PO intake 'OK' Vaccinated and boosted On baseline 2L o2 qhs and with exertion, no increase in this in last week Medical History: Reviewed Medications: Reviewed Surgical History: Reviewed Allergies: Reviewed Social History: No tobacco product use. No alcohol use. No Rec drug use. Code Status: Surrogate DM would be daughter Becky. Would want 'one try, one roudn of CPR and intubation if successful.' Allergies Allergy/AdvReac Type Severity Reaction Status Date / Time Sulfa (Sulfonamide Allergy Severe ANAPHYLAXIS; Verified 01/21/22 14:32 Antibiotics) TAKES AMARYL W/O REACTION nystatin Allergy Intermediate Wheezing Verified 01/21/22 14:32 cephalexin [From Keflex] Allergy Mild Headahce; Verified 01/21/22 14:32 Nausea; Rash thyroid, pork Allergy Unknown "ALL Verified 01/21/22 14:32 THYROID AGENTS" amoxicillin [From Augmentin] Allergy Verified 01/21/22 14:32 clavulanic acid Allergy Verified 01/21/22 14:32 [From Augmentin] Cephalosporins AdvReac Mild KEFLEX Verified 01/21/22 14:32 ALLERGY -NAUSEA Home Medications Medication Instructions Recorded Confirmed Type glucosamine-chondroitin 250 mg-200 2 tab PO BID 05/13/18 01/21/22 History mg tablet (Osteo Bi-Flex) levalbuterol HCl 1.25 mg/3 mL 1.25 mg INH Q4H PRN #90 ml 07/28/19 01/21/22 Rx solution for nebulization ferrous sulfate 325 mg (65 mg 325 mg PO DAILY tab 06/24/20 01/21/22 History iron) tablet calcium carbonate 600 mg calcium 600 mg PO DAILY #90 tab 09/02/20 01/21/22 Rx (1,500 mg) tablet (Calcium) travoprost 0.004 % eye drops 1 drp OPB HS 11/13/20 01/21/22 History (Travatan Z) TechLITE Lancets 30 gauge (lancets) #400 ea NS 12/26/20 01/21/22 Rx simvastatin 40 mg tablet 40 mg PO HS #90 tab 02/04/21 01/21/22 Rx flash glucose scanning reader 07/31/21 01/21/22 History (FreeStyle Jelly 2 Roulette) flash glucose sensor (FreeStyle 07/31/21 01/21/22 History Jelly 2 Sensor) apixaban 2.5 mg tablet (Eliquis) 2.5 mg PO BID #180 tab 08/18/21 01/21/22 Rx budesonide-formoterol HFA 160 2 puff INHALATION BID #3 inhaler 08/18/21 01/21/22 Rx mcg-4.5 mcg/actuation aerosol inhaler (Symbicort) famotidine 20 mg tablet (Acid 20 mg PO DAILY #30 tab 08/18/21 01/21/22 Rx Rib Builder (famotidine)) albuterol sulfate 90 mcg/actuation 2 puff INHALATION Q6H PRN #3 09/04/21 01/21/22 Rx aerosol inhaler inhaler gabapentin 600 mg tablet 600 mg PO TID PRN tab 09/15/21 01/21/22 History carvedilol 3.125 mg tablet 3.125 mg PO BID #180 tab 09/24/21 01/21/22 Rx blood sugar diagnostic ea 09/26/21 01/21/22 History Portable Oxygen #1 ea 10/17/21 01/21/22 Rx Novolog Flexpen U-100 Insulin 100 See Rx Instructions SUBCUT 10/28/21 01/21/22 Rx unit/mL (3 mL) subcutaneous .COMPLEX 90 Days #30 ml NS (insulin aspart U-100) insulin glargine 100 unit/mL (3 8 unit SUBCUT DAILY #1 box 10/28/21 01/21/22 Rx mL) subcutaneous pen (Lantus Solostar U-100 Insulin) telmisartan 40 mg tablet 40 mg PO DAILY #90 tab 12/16/21 01/21/22 Rx allopurinol 100 mg tablet 200 mg PO QAM #180 tab 12/19/21 01/21/22 Rx furosemide 40 mg tablet (Lasix) 40 mg PO Q OTHER DAY PRN #45 tab 12/22/21 01/21/22 Rx BD Ultra-Fine Vielka Pen Needle 32 #400 ea NS 01/15/22 01/21/22 Rx gauge x 5/32" (pen needle, diabetic) pantoprazole 40 mg tablet,delayed See Rx Instructions .ROUTE 01/15/22 01/21/22 Rx release .COMPLEX #60 tab Past Med/Surg History Medical History Adverse reaction to anesthetic agent Hard to wake up Anemia Asthma CAD (coronary artery disease) NON-OBSTRUCTIVE Cardiorenal syndrome Chronic anticoagulation Chronic back pain RLE RADICULOPATHY Chronic hypoxemic respiratory failure Chronic kidney disease, stage III (moderate) Congestive heart failure DIASTOLIC COPD (chronic obstructive pulmonary disease) Decreased oral intake Depression Diabetes mellitus, type 2 Dyspnea on exertion GERD (gastroesophageal reflux disease) CONTROLLED Glaucoma Gout Headache TEMPORAL BIOPSY DONE IN 2018 Hiatal hernia History of central retinal artery occlusion History of diverticulitis History of hypothyroidism EUTHYROID ON MORE RECENT TESTING Hx of gout Hyperlipidemia Hypertension Hyponatremia Lumbar spinal stenosis Nausea Nocturnal hypoxemia On home oxygen therapy WEARS 2L O2 "MOST OF THE TIME" Osteoarthritis Pulmonary HTN SEVERE PULMONARY HTN (RVSP > 60MMHG) Pulmonary hypertension Pulmonary nodule Seizure 18 YEARS AGO; NO ISSUES SINCE Tremor ESSENTIAL TREMOR (HEAD) Valvular disease MODERATE TO SEVERE TR. MODERATE AV SCLEROSIS Vitamin D deficiency Surgical History History of cardiac cath 2008 NO STENTS History of cataract surgery RT/LEFT History of dacryocystorhinostomy bilateral History of dilation and curettage History of surgery CYSTOCELE REPAIR RECTOCELE REPAIR History of temporal artery biopsy 02/08/14= MAC SEDATION WITHOUT ISSUES AT [facility] History of tooth extraction History of total hip arthroplasty (~07/16/09) LEFT Family History Father , Age 60 from [place] Myocardial infarction Diabetes Hypertension Grandfather Stroke Mother Cancer Hearing loss Allergies Aunt Hearing loss Other Asthma Coronary heart disease Heart disease No family history of adverse response to anesthesia No family history of bleeding disorder Denies family history of Ovarian cancer Prostate cancer Breast cancer Lung cancer Colorectal cancer Social History Smoking Status: Never smoker Second Hand Exposure: No; Hx Alcohol Use: No Hx Substance Use: No Preferred Language: Faroese Communication Ability: Effective Visual Impairment: No Limitations Hearing Ability: Normal Urology Physician Required: No Beliefs That Will Affect Care: None marital status: / Current Living Situation: Alone Current Living Situation Comment: pt is sister's caregiver current occupational status: retired How many Children do You have: 2 Feels Safe at Home: Yes Childhood Exposure to Second-Hand Smoke: No caffeine: Yes Dental Care, Regularly: Yes Physical Activity Frequency: Does not Exercise Seatbelt Use: always Sunscreen Use: Yes Assistive Devices: Cane Review of Systems Review of Systems: All systems reviewed & are unremarkable except as noted in HPI & below Physical Exam Physical Exam: General: A&Ox3. NAD. Cooperative. HEENT: Atraumatic, normocephalic. Viusion/hearing intact Pulm: Scattered expiratory wheeze, no rhonchi, no rales.. Symmetrical chest rise. No increased work of breathing. No respiratory distress. Cardiac: RRR, -mrg. Radial pulses intact and symmetrical. Abdominal: Nontender, nondistended, soft. BS present. Ext: 5/5 door slinger, elbow flexion/extension, hip flexion, ankle dorsi/plantar flexion bilatreally. Hallux cap refill brisk Results & Data Results & Data ([facility]) Vital Signs (Past 12 Hours) Vital Signs Temp Pulse Pulse Resp BP BP Pulse Ox 02/04/22 13:22 36.8 C 60 18 135/66 97 02/04/22 11:25 36.4 C L 78 18 137/75 98 PG Care Time/CCT Total # of Minutes Spent Total Time Spent with Patient: Total time spent is greater than 50% in coordination of care (as documented) at patient's floor/unit and/or counseling patient: Coding Level of Care Code INT OBSERVATION CARE 70M LVL 3 Diagnoses Dysphonia R49.0 Gastritis K29.70 Chronic hypoxemic respiratory failure J96.11 Pulmonary hypertension I27.20 On home oxygen therapy Z99.81 Atrial fibrillation I48.91 Chronic kidney disease, stage IV (severe) N18.4 Congestive heart failure I50.9 COPD (chronic obstructive pulmonary disease) J44.9 CAD (coronary artery disease) I25.10 Hypertension I10 Diabetes mellitus, type 2 E11.9 GERD (gastroesophageal reflux disease) K21.9 COVID-19 U07.1
[2022-02-04] MEDS ORDERED: guaiFENesin/CODEINE 100MG/10MG 5ML UDC PO PRN (16:21)
[2022-02-04] MEDS ORDERED: GABAPENTIN 600 MG TAB PO PRN (16:56)
[2022-02-04] MEDS ORDERED: GLUCOSE 10 TABS/TUBE PO PRN (16:56)
[2022-02-04] MEDS ORDERED: ACETAMINOPHEN 325 MG TAB PO PRN (16:56)
[2022-02-04] MEDS ORDERED: CARBOHYDRATES FOR HYPOGLYCEMIA PO PRN (16:56)
[2022-02-04] MEDS ORDERED: GLUCAGON FOR INJ 1 MG VIAL SQ PRN (16:56)
[2022-02-04] MEDS ORDERED: DEXTROSE 50% 50 ML SYRINGE IV PRN (16:56)
[2022-02-04] MEDS ORDERED: POLYETHYLENE (MIRALAX) 17 GM PACK PO PRN (16:56)
[2022-02-04] MEDS ORDERED: GLUCOSE 40% GEL 15 GM TUBE PO PRN (16:56)
[2022-02-04] MEDS ORDERED: ALBUTEROL HFA 8 GM INHALER INH PRN (16:56)
[2022-02-04] MEDS: INSULIN ASPART PER UNIT SC SCH ×2 (19:34→21:57)
[2022-02-04] MEDS ORDERED: NON-FORMULARY MEDICATION (Glucosamine-Chondroitin [Osteo Bi-Flex] 250-200 mg Tablet) PO SCH (21:00)
[2022-02-04] MEDS: SIMVASTATIN 40 MG TAB PO SCH (21:36)
[2022-02-04] MEDS: PANTOprazole 40 MG TAB PO SCH (21:36)
[2022-02-04] MEDS: APIXABAN 2.5 MG TAB PO SCH (21:36)
[2022-02-04] MEDS: DOXYCYCLINE HYCLATE 100 MG CAP PO SCH (21:36)
[2022-02-04] MEDS: carvediloL 3.125 MG TAB PO SCH (21:37)
[2022-02-04] MEDS: INSULIN GLARGINE SOLOSTAR 100 UNITS/ML 3 ML PEN SC SCH (21:58)
[2022-02-05 08:06] LABS: Basophils # (auto) 0.01 K/uL (0-0.2); Basophils % (auto) 0.1 %; Eosinophils # (auto) 0.01 K/uL (0-0.5); Eosinophils % (auto) 0.1 %; Hematocrit (blood only) 32.5 % (37-47); Hemoglobin 11.3 g/dL (12.0-16.0); Immature Granulocytes # (auto) 0.11 K/uL (0.00-0.02); Lymphocytes # (auto) 0.88 K/uL (1.2-3.4); Lymphocytes % (auto) 8.1 %; Mean Corpuscular Hemoglobin 33.4 pg (25-34); Mean Corpuscular Hgb Conc 34.8 g/dL (32-36); Mean Corpuscular Volume 96.2 fL (80-100); Mean Platelet Volume 10.4 fL (7.4-10.4); Monocytes # (auto) 0.12 K/uL (0.11-0.59); Monocytes % (auto) 1.1 %; Neutrophils # (auto) 9.73 K/uL (1.4-6.5); Neutrophils % (auto) 89.6 %; Platelet Count 214 K/uL (130-400); RDW Coefficient of Variation 14.1 % (11.5-14.5); RDW Standard Deviation 48.9 fL (36.4-46.3); Red Blood Count 3.38 M/uL (4.2-5.4); White Blood Count 10.86 K/uL (4.8-10.8)
[2022-02-05] MEDS: INSULIN GLARGINE SOLOSTAR 100 UNITS/ML 3 ML PEN SC SCH (08:21)
[2022-02-05] MEDS: INSULIN ASPART PER UNIT SC SCH ×5 (08:21→21:00)
[2022-02-05 08:26] LABS: Albumin Globulin Ratio 1.1 (0.9-2); Albumin Level 3.6 gm/dl (3.4-5.0); BUN Creatinine Ratio 29.9 (10-20); Bilirubin,Total 0.5 mg/dl (0.2-1.0); Calcium 9.1 mg/dl (8.5-10.1); Creatinine Clr Calc Pharmacy 17.6 ml/min; Est GFR (Non-African American) 25.9 ml/min; Globulin 3.4 gm/dl (2.5-4.0)
[2022-02-05] MEDS: APIXABAN 2.5 MG TAB PO SCH ×2 (08:31→21:30)
[2022-02-05] MEDS: allopurinoL 100 MG TAB PO SCH (08:32)
[2022-02-05] MEDS: carvediloL 3.125 MG TAB PO SCH ×2 (08:32→17:12)
[2022-02-05] MEDS: DOXYCYCLINE HYCLATE 100 MG CAP PO SCH ×2 (08:32→21:30)
[2022-02-05] MEDS: FERROUS SULFATE 325 MG TAB PO SCH (08:33)
[2022-02-05] MEDS: FAMOTIDINE 20 MG TAB PO SCH (08:33)
[2022-02-05] MEDS: PANTOprazole 40 MG TAB PO SCH ×2 (08:34→20:54)
[2022-02-05] MEDS: FLUTICASONE/VILANTEROL 100/25MCG 14 PUFFS/INHALER INH SCH (08:35)
[2022-02-05] MEDS: UMECLIDINIUM BROMIDE 62.5MCG/BLISTER 7 PUFFS/INHALER INH SCH (08:35)
[2022-02-05] MEDS: dexAMETHasone 6 MG in SYRINGE 0 ML IV SCH (08:36)
[2022-02-05] MEDS ORDERED: SODIUM CHLORIDE 0.9% 1000ML 500 ML IV ONE (09:22)
[2022-02-05] MEDS: POLYETHYLENE (MIRALAX) 17 GM PACK PO SCH ×2 (09:52→20:54)
[2022-02-05] MEDS ORDERED: TELMISARTAN 40 MG TAB PO SCH (11:00)
[2022-02-05] MEDS ORDERED: PHARMACY GLYCEMIC MGMT CONSULT PRN (12:13)
--- NOTE | 2022-02-05 12:21 | Hospitalist Progress Note ---
Date of Service February 05, 2022 Assessment & Plan (1) Dysphonia: Plan: Liz is an 86-year-old female with past medical history of CAD, hypertension, hyperlipidemia, diabetes type 2, CHF, A. fib on anticoagulation, home oxygen, pulmonary hypertension, and GERD who presents with fatigue and who is COVID- positive. Fatigue, shortness of breath, decreased appetite 2/2 COVID Symptoms began 10 days ago +productive greenish cough Shortness of breath worsened with exertion, does have 2 L oxygen requirement at night and PRN with exertion. - COVID + - Vaccinated with booster - Fatigue with exertion Some scattered expiratory wheezes consistent with COPD exacerbation managed as noted COPD with exacerbation 2/ COVID - Increased yellow sputum ~1 week after covid sx FEV1/FVC 60%, FEV1 0.94 60% 09/2021, with chronic hypoxemic respiratory failure on 2 L nightly Continue Symbicort - Continue Spiriva Received dexamethasone 10 mg IV x1 in ER Continue dexamethasone 6 mg daily for 10-day total course Nebs as needed doxy 100mg bid x5 days Hyperglycemia, steroids, DM control as below Dysphonia Intermittent with history of flexible video stroboscopy which showed thickened secretions Continue PPI therapy, famotidine 20 mg nightly CKD 3 Baseline EGFR approximately 2930 Follows with [facility] Renally dose medications BMP daily - Admit Cr 1.74 - Baseline cr ~1.6-1.7 Creatinine remains 1.76/23 with elevated creatinine/BUN ratio consistent with volume depletion. Orals encouraged, 500 cc bolus given Hyperkalemia Potassium 6.0 Telmisartan held Patient clinically volume depleted NSS bolus, PEG twice daily, oral hydration encouraged, recheck pending at noon Troponin Elevation - HS-trop 21.4. No chest pain Troponin down trended EKG without acute ST-T hanges Sleep apnea CPAP nightly Pulmonary hypertension Home oxygen requirement of 2 L at night Pulm report 11/18/2021 ICS/LABA Symbicort. Spiriva has been stopped previously for unclear reasons Suspected group 2 disease from heart failure with preserved ejection fraction and longstanding hypertension by echo Pulmonary hypertension specific therapy contraindicated No evidence of primary parenchymal process, stable PFTs Heart cath and echo as noted Diuretics deferred to PCP Recommended SGLT2 evaluation Continued on Lasix 40 mg every other day and as needed for weight gain SGLT2 deferred to follow-up appointment Atrial fibrillation Persistent, rate controlled & Eliquis Continue Eliquis Continue carvedilol - Rate controlled on admit Heart failure with preserved ejection fraction Right heart cath [facility] 11/2021: RA 14, RV 70/12, PA 70/31 (44), PAWP 24, Adi CO/CI 3.0/1.9, Thermo CO/CI 1.9/1.2, PaO2 50% - Echo 07/2021: Small LV, moderate LVH, LVEF greater than 70%, RV mildly dilated borderline RV function. Mild mitral stenosis, mild MR, moderate to severe TR. Estimated PASP 95-100, RA 8 No history of occlusive CAD Continue simvastatin Continue telmisartan Continue Lasix 40 mg every other day as needed Continue carvedilol 3.125 mg p.o. twice daily Type 2 diabetes mellitus Last A1c 7.5% Loosened A1c due to hypoglycemic episodes and age On basal 8 units and SSI at home Converted to basal/bolus based on home total insulin dose. Patient with uptrending hyperglycemia 02/05 in the setting of steroid use SSI pain, pharmacy glycemic consult? Regular matched to dexamethasone DVT PPx: On DOAC Diet: DM CODE STATUS: FUll, 1-2 rounds CPD only per pt Dispo: Med/S tele (2) Gastritis: (3) Chronic hypoxemic respiratory failure: (4) Pulmonary hypertension: (5) On home oxygen therapy: (6) Atrial fibrillation: (7) Chronic kidney disease, stage IV (severe): (8) Congestive heart failure: (9) COPD (chronic obstructive pulmonary disease): (10) CAD (coronary artery disease): (11) Hypertension: (12) Diabetes mellitus, type 2: (13) GERD (gastroesophageal reflux disease): (14) COVID-19: Admission and Anticipated Discharge Date Admission Date: February 04, 2022 Subjective Joint seen at the bedside this morning. Continues to feel fatigued, similar to yesterday. No fevers or chills overnight. Has peed this morning, not sure if it was dark or not. No chest pain. Does feel tired with some shortness of breath with exertion, denies shortness of breath at rest. Continues to have a cough. Denies cramps, focal weakness, lightheadedness, dizziness, syncope, presyncope. Review of Systems Review of Systems: All systems reviewed & are unremarkable except as noted in Subjective Physical Exam Physical Exam: General: A&Ox3. NAD. Cooperative. HEENT: Atraumatic, normocephalic. Vision/hearing intact Pulm: Scattered expiratory wheeze, no rhonchi, no rales.. Symmetrical chest rise. No increased work of breathing. No respiratory distress. Cardiac: RRR, -mrg. Radial pulses intact and symmetrical. Abdominal: Nontender, nondistended, soft. BS present. Ext: 5/5 medical advisor, no lower extremity edema, ankle plantarflexion/dorsiflexion intact. Hallux cap refill approximately 2 seconds. Results & Data Results & Data ([facility]) Vital Signs (Past 12 Hours) Vital Signs Temp Pulse Resp BP Pulse Ox 02/05/22 10:28 35.7 C L 70 18 117/73 98 02/05/22 07:54 36.3 C L 63 16 118/71 96 PG Care Time/CCT Total # of Minutes Spent Total Time Spent with Patient: Total time spent is greater than 50% in coordination of care (as documented) at patient's floor/unit and/or counseling patient: Coding Level of Care Code 92850 Subseq Obs Care Lvl 3 Diagnoses Dysphonia R49.0 Gastritis K29.70 Chronic hypoxemic respiratory failure J96.11 Pulmonary hypertension I27.20 On home oxygen therapy Z99.81 Atrial fibrillation I48.91 Chronic kidney disease, stage IV (severe) N18.4 Congestive heart failure I50.9 COPD (chronic obstructive pulmonary disease) J44.9 CAD (coronary artery disease) I25.10 Hypertension I10 Diabetes mellitus, type 2 E11.9 GERD (gastroesophageal reflux disease) K21.9 COVID-19 U07.1
[2022-02-05] MEDS ORDERED: SODIUM CHLORIDE 0.9% 1000ML 1,000 ML IV SCH (12:30)
[2022-02-05] MEDS ORDERED: INSULIN ASPART PER UNIT SC ONE (13:00)
[2022-02-05] MEDS ORDERED: INSULIN GLARGINE SOLOSTAR 100 UNITS/ML 3 ML PEN SC ONE (13:00)
[2022-02-05] MEDS ORDERED: INSULIN HUMAN REGULAR PER UNIT 5 UNITS in SYRINGE 4.95 ML IV ONE (13:00)
--- NOTE | 2022-02-05 13:02 | Pharmacy Report ---
Pharmacy Glycemic Short Note 2 - Date of Service February 05, 2022 - Glycemic Short BSG Results (Last 24 hours): 02/04/22 02/04/22 02/04/22 12:20 19:32 21:29 Glucose 168 H POC Glucose 183 H 246 H 02/05/22 02/05/22 02/05/22 07:47 07:52 11:49 Glucose 182 H POC Glucose 173 H 301 H* 02/05/22 11:50 Glucose POC Glucose 310 H* OUTPATIENT ANTIDIABETIC REGIMEN: * Lantus 8 units SC HS * Novolog 12 units SC with breakfast, 8 units SC with lunch and dinner HbA1c: 7.7 (09/12/21) ASSESSMENT: * LW is a 86 year old female who presented on 02/04 with COPD exacerbation secondary to COVID-19 * Currently ordered IV dexamethasone, received 10 mg x 1 yesterday and now 6 mg daily ongoing * Pharmacy consulted at lunchtime today due to BSG > 300 mg/dL * Will increase Lantus to equal ~0.4 unit/kg to cover dexamethasone * Tighten Novolog to weight-based stress of 3 dosing PLAN FOR INPATIENT GLYCEMIC CONTROL: * Basal insulin * Lantus 8 units SC x 1 this morning * Lantus 15 units SC x 1 at time of consult * Reassess in AM * Bolus insulin * NovoLog per scale ACHS or Q6hrs while NPO * Goal Range: Low 110 mg/dL - High 140 mg/dL * Correction Factor: 30 mg/dL/unit * Nutritional / Prandial insulin per carb ratio of 1 unit per 9 grams CHO consumed
[2022-02-05 15:09] LABS: Calcium 9.1 mg/dl (8.5-10.1); Est GFR (African American) 28.6 ml/min; Est GFR (Non-African American) 24.7 ml/min; Potassium 5.5 mmol/L (3.5-5.1)
[2022-02-05 20:51] LABS: Calcium 9.2 mg/dl (8.5-10.1); Creatinine Clr Calc Pharmacy 16.4 ml/min; Est GFR (African American) 27.5 ml/min; Est GFR (Non-African American) 23.7 ml/min; Potassium 5.3 mmol/L (3.5-5.1)
[2022-02-05] MEDS: SIMVASTATIN 40 MG TAB PO SCH (21:31)
--- NOTE | 2022-02-05 22:43 | Electrocardiogram Report ---
Test Reason : Blood Pressure : / mmHG Vent. Rate : 077 BPM Atrial Rate : 000 BPM P-R Int : 000 ms QRS Dur : 072 ms QT Int : 406 ms P-R-T Axes : 000 112 002 degrees QTc Int : 460 ms Atrial fibrillation Low voltage QRS Septal infarct (cited on or before 18-SEP-2021) Abnormal ECG When compared with ECG of 18-SEP-2021 07:06, Questionable change in initial forces of Anteroseptal leads Confirmed by Avtar Dominguez ([id number]) on 02/05/2022 10:43:12 PM Referred By: REFERRED SELF Confirmed By:Avtar Dominguez
[2022-02-06] MEDS: INSULIN ASPART PER UNIT SC SCH ×6 (00:15→20:32)
[2022-02-06 07:00] LABS: Basophils # (auto) 0.01 K/uL (0-0.2); Basophils % (auto) 0.1 %; Hematocrit (blood only) 29.5 % (37-47); Hemoglobin 9.9 g/dL (12.0-16.0); Immature Granulocytes # (auto) 0.11 K/uL (0.00-0.02); Immature Granulocytes % (auto) 0.7 %; Lymphocytes # (auto) 0.72 K/uL (1.2-3.4); Lymphocytes % (auto) 4.4 %; Mean Corpuscular Hemoglobin 31.8 pg (25-34); Mean Corpuscular Hgb Conc 33.6 g/dL (32-36); Mean Corpuscular Volume 94.9 fL (80-100); Mean Platelet Volume 10.9 fL (7.4-10.4); Monocytes # (auto) 0.51 K/uL (0.11-0.59); Monocytes % (auto) 3.1 %; Neutrophils # (auto) 15.17 K/uL (1.4-6.5); Neutrophils % (auto) 91.7 %; Platelet Count 213 K/uL (130-400); RDW Coefficient of Variation 14.3 % (11.5-14.5); Red Blood Count 3.11 M/uL (4.2-5.4); White Blood Count 16.52 K/uL (4.8-10.8)
[2022-02-06 07:32] LABS: BUN Creatinine Ratio 34.9 (10-20); Calcium 8.8 mg/dl (8.5-10.1); Creatinine Clr Calc Pharmacy 17.5 ml/min; Est GFR (African American) 29.8 ml/min; Est GFR (Non-African American) 25.7 ml/min; Potassium 5.4 mmol/L (3.5-5.1)
[2022-02-06] MEDS: carvediloL 3.125 MG TAB PO SCH ×2 (07:57→16:56)
[2022-02-06] MEDS: FLUTICASONE/VILANTEROL 100/25MCG 14 PUFFS/INHALER INH SCH (08:09)
[2022-02-06] MEDS: UMECLIDINIUM BROMIDE 62.5MCG/BLISTER 7 PUFFS/INHALER INH SCH (08:09)
[2022-02-06] MEDS: PANTOprazole 40 MG TAB PO SCH ×2 (08:10→20:49)
[2022-02-06] MEDS: APIXABAN 2.5 MG TAB PO SCH ×2 (08:11→20:48)
[2022-02-06] MEDS: FERROUS SULFATE 325 MG TAB PO SCH (08:12)
[2022-02-06] MEDS: dexAMETHasone 6 MG in SYRINGE 0 ML IV SCH (08:35)
[2022-02-06] MEDS: INSULIN GLARGINE SOLOSTAR 100 UNITS/ML 3 ML PEN SC SCH (08:35)
[2022-02-06] MEDS: allopurinoL 100 MG TAB PO SCH (09:01)
[2022-02-06] MEDS: POLYETHYLENE (MIRALAX) 17 GM PACK PO SCH ×2 (09:02→20:49)
[2022-02-06] MEDS: CEFDINIR 300 MG CAP PO SCH (09:02)
--- NOTE | 2022-02-06 09:25 | Pharmacy Report ---
Pharmacy Glycemic Short Note 2 - Date of Service February 06, 2022 - Glycemic Short BSG Results (Last 24 hours): 02/05/22 02/05/22 02/05/22 11:49 11:50 14:19 Glucose 267 H POC Glucose 301 H* 310 H* 02/05/22 02/05/22 02/06/22 16:39 20:24 00:03 Glucose 130 H POC Glucose 206 H 131 H 02/06/22 02/06/22 02/06/22 04:03 06:00 07:50 Glucose 147 H POC Glucose 156 H 151 H OUTPATIENT ANTIDIABETIC REGIMEN: * Lantus 8 units SC HS * Novolog 12 units SC with breakfast, 8 units SC with lunch and dinner HbA1c: 7.7 (09/12/21) ASSESSMENT: 02/06/22 * BSGs much improved following placement of consult, 301, 206, 130, 131 mg/dL * Received 51 units of insulin (23 units of Lantus, 23 units of Novolog, and 5 units of IV regular insulin) * Fasting BSG of 151 mg/dL this morning * Will continue ~0.4 unit/kg basal with IV steroids and aggressive Novolog parameters * Consider tightening breakfast Novolog parameters even more tomorrow morning 02/05/22 * LW is a 86 year old female who presented on 02/04 with COPD exacerbation secondary to COVID-19 * Currently ordered IV dexamethasone, received 10 mg x 1 yesterday and now 6 mg daily ongoing * Pharmacy consulted at lunchtime today due to BSG > 300 mg/dL * Will increase Lantus to equal ~0.4 unit/kg to cover dexamethasone * Tighten Novolog to weight-based stress of 3 dosing PLAN FOR INPATIENT GLYCEMIC CONTROL: * Basal insulin * Lantus 24 units SC daily with IV dexamethasone (~0.4 unit/kg) * Bolus insulin * NovoLog per scale ACHS or Q6hrs while NPO * Goal Range: Low 110 mg/dL - High 140 mg/dL * Correction Factor: 30 mg/dL/unit * Nutritional / Prandial insulin per carb ratio of 1 unit per 9 grams CHO consumed
[2022-02-06] MEDS ORDERED: SODIUM CHLORIDE 0.9% 1000ML 1,000 ML IV SCH (09:30)
[2022-02-06] MEDS ORDERED: Nursing to Pharmacy Communication SCH (10:00)
[2022-02-06] MEDS ORDERED: SODIUM CHLORIDE 0.9% 250 ML IV SCH (10:15)
--- NOTE | 2022-02-06 13:32 | Hospitalist Progress Note ---
Date of Service February 06, 2022 Assessment & Plan (1) Dysphonia: Plan: Liz is an 86-year-old female with past medical history of CAD, hypertension, hyperlipidemia, diabetes type 2, CHF, A. fib on anticoagulation, home oxygen, pulmonary hypertension, and GERD who presents with fatigue and who is COVID- positive. Fatigue, shortness of breath, decreased appetite 2/2 COVID Symptoms began 10 days ago +productive greenish cough Shortness of breath worsened with exertion, does have 2 L oxygen requirement at night and PRN with exertion. - COVID + - Vaccinated with booster - Fatigue with exertion Improving respiratory status, minimal wheezes today COPD with exacerbation 2/2 COVID - Increased yellow sputum ~1 week after covid sx FEV1/FVC 60%, FEV1 0.94 60% 09/2021, with chronic hypoxemic respiratory failure on 2 L nightly Continue Symbicort - Continue Spiriva Received dexamethasone 10 mg IV x1 in ER Continue dexamethasone 6 mg daily for 10-day total course Nebs as needed Hyperglycemia, steroids, DM control as below Dysphonia Intermittent with history of flexible video stroboscopy which showed thickened secretions Continue PPI therapy, famotidine 20 mg nightly CKD 3 Baseline EGFR approximately 2930 Follows with [facility] Renally dose medications BMP daily - Admit Cr 1.74 - Baseline cr ~1.6-1.7 Improvement in creatinine to 1.75 with small fluid bolus yesterday, p.o. intake remains poor, and while downtrending creatinine remains slightly above baseline. Potassium downtrending but still remains elevated. Clinically dry on exam, no lower edema. Lasix held and additional IV FM given today, BMP trended. Telmisartan remains held. Hyperkalemia Potassium as noted Telmisartan held Patient clinically volume depleted NSS bolus, PEG twice daily, oral hydration encouraged, trended Troponin Elevation - HS-trop 21.4. No chest pain Troponin down trended EKG without acute ST-T changes Sleep apnea CPAP nightly Pulmonary hypertension Home oxygen requirement of 2 L at night Pulm report 11/18/2021 ICS/LABA Symbicort. Spiriva has been stopped previously for unclear reasons Suspected group 2 disease from heart failure with preserved ejection fraction and longstanding hypertension by echo Pulmonary hypertension specific therapy contraindicated No evidence of primary parenchymal process, stable PFTs Heart cath and echo as noted Diuretics deferred to PCP Recommended SGLT2 evaluation Continued on Lasix 40 mg every other day and as needed for weight gain SGLT2 deferred to follow-up appointment Atrial fibrillation Persistent, rate controlled & Eliquis Continue Eliquis Continue carvedilol - Rate controlled on admit Heart failure with preserved ejection fraction Right heart cath [facility] 11/2021: RA 14, RV 70/12, PA 70/31 (44), PAWP 24, Adi CO/CI 3.0/1.9, Thermo CO/CI 1.9/1.2, PaO2 50% - Echo 07/2021: Small LV, moderate LVH, LVEF greater than 70%, RV mildly dilated borderline RV function. Mild mitral stenosis, mild MR, moderate to severe TR. Estimated PASP 95-100, RA 8 No history of occlusive CAD Continue simvastatin The losartan temporarily held with hyperkalemia as noted. Continue Lasix 40 mg every other day as needed, currently held in the setting of volume contraction Continue carvedilol 3.125 mg p.o. twice daily Type 2 diabetes mellitus Last A1c 7.5% Loosened A1c due to hypoglycemic episodes and age On basal 8 units and SSI at home Converted to basal/bolus based on home total insulin dose. Patient with uptrending hyperglycemia 02/05 in the setting of steroid use Patient remains on SSI with glargine, increase to 24 units. Pharmacy following Social: PT/OT pending. Patient did plan to return home, however gets a large amount of assistance from family who are away today and tomorrow and expressed concern for patient's ability to care and safety at home. They will be back in arranging the home to be safe on Wednesday DVT PPx: On DOAC Diet: DM CODE STATUS: FUll, 1-2 rounds CPD only per pt Dispo: Med/S tele (2) Gastritis: (3) Chronic hypoxemic respiratory failure: (4) Pulmonary hypertension: (5) On home oxygen therapy: (6) Atrial fibrillation: (7) Chronic kidney disease, stage IV (severe): (8) Congestive heart failure: (9) COPD (chronic obstructive pulmonary disease): (10) CAD (coronary artery disease): (11) Hypertension: (12) Diabetes mellitus, type 2: (13) GERD (gastroesophageal reflux disease): (14) COVID-19: Admission and Anticipated Discharge Date Admission Date: February 04, 2022 Subjective Seen the bedside this morning. Still fatigued, but feels she is gradually improving. Does not have shortness of breath or chest pain at bedside. She reports she is peeing some, thinks more than previously. Has had somewhat decreased intake while being sick, thinks this is improving. No nausea/vomiting/diarrhea/constipation. Physical Exam Physical Exam: General: A&Ox3. NAD. Cooperative. HEENT: Atraumatic, normocephalic. Vision/hearing intact. Mucous membranes tacky Pulm: Minimal expiratory wheeze, no rhonchi, no rales.. Symmetrical chest rise. No increased work of breathing. No respiratory distress. Cardiac: RRR, -mrg. Radial pulses intact and symmetrical. Abdominal: Nontender, nondistended, soft. BS present. Ext: 5/5 lime slaker, no lower extremity edema, ankle plantarflexion/dorsiflexion intact. Hallux cap refill approximately 2 seconds. Results & Data Results & Data ([facility]) Vital Signs (Past 12 Hours) Vital Signs Temp Pulse Pulse Resp BP Pulse Ox 02/06/22 11:28 36.2 C L 60 16 118/62 95 02/06/22 07:51 36.3 C L 59 L 16 112/69 96 02/06/22 07:40 58 L PG Care Time/CCT Total # of Minutes Spent Total Time Spent with Patient: Total time spent is greater than 50% in coordination of care (as documented) at patient's floor/unit and/or counseling patient: Coding Level of Care Code 31926 Subseq Obs Care Lvl 2 Diagnoses Dysphonia R49.0 Gastritis K29.70 Chronic hypoxemic respiratory failure J96.11 Pulmonary hypertension I27.20 On home oxygen therapy Z99.81 Atrial fibrillation I48.91 Chronic kidney disease, stage IV (severe) N18.4 Congestive heart failure I50.9 COPD (chronic obstructive pulmonary disease) J44.9 CAD (coronary artery disease) I25.10 Hypertension I10 Diabetes mellitus, type 2 E11.9 GERD (gastroesophageal reflux disease) K21.9 COVID-19 U07.1
[2022-02-06] MEDS ORDERED: FUROSEMIDE 40 MG TAB PO PRN (14:48)
[2022-02-06 15:57] LABS: BUN Creatinine Ratio 35.5 (10-20); Calcium 8.8 mg/dl (8.5-10.1); Creatinine Clr Calc Pharmacy 17.9 ml/min; Est GFR (African American) 30.5 ml/min; Est GFR (Non-African American) 26.3 ml/min; Potassium 5.2 mmol/L (3.5-5.1)
[2022-02-06] MEDS: SIMVASTATIN 40 MG TAB PO SCH (20:50)
[2022-02-07 06:08] LABS: Basophils # (auto) 0.01 K/uL (0-0.2); Basophils % (auto) 0.1 %; Hemoglobin 10.5 g/dL (12.0-16.0); Immature Granulocytes # (auto) 0.11 K/uL (0.00-0.02); Immature Granulocytes % (auto) 0.8 %; Lymphocytes # (auto) 0.78 K/uL (1.2-3.4); Lymphocytes % (auto) 5.7 %; Mean Corpuscular Hemoglobin 31.1 pg (25-34); Mean Corpuscular Hgb Conc 32.8 g/dL (32-36); Mean Corpuscular Volume 94.7 fL (80-100); Mean Platelet Volume 10.6 fL (7.4-10.4); Monocytes # (auto) 0.32 K/uL (0.11-0.59); Monocytes % (auto) 2.3 %; Neutrophils # (auto) 12.52 K/uL (1.4-6.5); Neutrophils % (auto) 91.1 %; Platelet Count 212 K/uL (130-400); RDW Coefficient of Variation 14.7 % (11.5-14.5); RDW Standard Deviation 49.7 fL (36.4-46.3); Red Blood Count 3.38 M/uL (4.2-5.4); White Blood Count 13.74 K/uL (4.8-10.8)
[2022-02-07 06:37] LABS: BUN Creatinine Ratio 39.1 (10-20); Calcium 8.9 mg/dl (8.5-10.1); Creatinine Clr Calc Pharmacy 19.1 ml/min; Est GFR (Non-African American) 28.5 ml/min; Potassium 5.1 mmol/L (3.5-5.1)
[2022-02-07] MEDS: INSULIN ASPART PER UNIT SC SCH ×4 (08:25→16:59)
[2022-02-07] MEDS: POLYETHYLENE (MIRALAX) 17 GM PACK PO SCH (08:25)
[2022-02-07] MEDS: FAMOTIDINE 20 MG TAB PO SCH (08:26)
[2022-02-07] MEDS: PANTOprazole 40 MG TAB PO SCH (08:26)
[2022-02-07] MEDS: CEFDINIR 300 MG CAP PO SCH (08:26)
[2022-02-07] MEDS: APIXABAN 2.5 MG TAB PO SCH (08:26)
[2022-02-07] MEDS: allopurinoL 100 MG TAB PO SCH (08:26)
[2022-02-07] MEDS: FERROUS SULFATE 325 MG TAB PO SCH (08:26)
[2022-02-07] MEDS: carvediloL 3.125 MG TAB PO SCH ×2 (08:27→17:11)
[2022-02-07] MEDS: UMECLIDINIUM BROMIDE 62.5MCG/BLISTER 7 PUFFS/INHALER INH SCH (08:28)
[2022-02-07] MEDS: FLUTICASONE/VILANTEROL 100/25MCG 14 PUFFS/INHALER INH SCH (08:28)
[2022-02-07] MEDS: dexAMETHasone 6 MG in SYRINGE 0 ML IV SCH (08:28)
[2022-02-07] MEDS: INSULIN GLARGINE SOLOSTAR 100 UNITS/ML 3 ML PEN SC SCH (08:39)
--- NOTE | 2022-02-07 11:55 | Discharge Summary ---
Date of Service February 07, 2022 Admission HPI Per Admitting Provider Liz is an 86-year-old female with past medical history of CAD, hypertension, hyperlipidemia, diabetes type 2, CHF, A. fib on anticoagulation, home oxygen, pulmonary hypertension, and GERD who presents with fatigue and who is COVID- positive. Cough started ~10 days ago. Seemed ot get a little better then 'coughing an awful lot last night.' No falls Feels fatigued, but no falls Has been working with sister to get a house cleaned up for sale Can go up steps at her place, but does feel fatigued doing so. No chest pain No fevers, chills, or sweats Cough is productive for clearish to light yellow mucous Decreased appetite, but some PO intake 'OK' Vaccinated and boosted On baseline 2L o2 qhs and with exertion, no increase in this in last week Medical History: Reviewed Medications: Reviewed Surgical History: Reviewed Allergies: Reviewed Social History: No tobacco product use. No alcohol use. No Rec drug use. Code Status: Surrogate DM would be daughter Becky. Would want 'one try, one roudn of CPR and intubation if successful.' Principal Diagnosis COVID Hyperkalemia UTI Discharge Exam General: A&Ox3. NAD. Cooperative. HEENT: Atraumatic, normocephalic. Vision/hearing intact. Mucous membranes tacky Pulm: CTAB, no rhonchi, no rales.. Symmetrical chest rise. No increased work of breathing. No respiratory distress. Cardiac: RRR, -mrg. Radial pulses intact and symmetrical. Abdominal: Nontender, nondistended, soft. BS present. Ext: 5/5 role player, no lower extremity edema, ankle plantarflexion/dorsiflexion int act. Hallux cap refill brisk Discharge Data Allergies Allergy/AdvReac Type Severity Reaction Status Date / Time Sulfa (Sulfonamide Allergy Severe ANAPHYLAXIS; Verified 02/04/22 15:34 Antibiotics) TAKES AMARYL W/O REACTION nystatin Allergy Intermediate Wheezing Verified 02/04/22 15:34 cephalexin [From Keflex] Allergy Mild Headahce; Verified 02/04/22 15:34 Nausea; Rash thyroid, pork Allergy Unknown "ALL Verified 02/04/22 15:34 THYROID AGENTS" amoxicillin [From Augmentin] Allergy Verified 02/04/22 15:34 clavulanic acid Allergy Verified 02/04/22 15:34 [From Augmentin] Cephalosporins AdvReac Mild KEFLEX Verified 02/04/22 15:34 ALLERGY -NAUSEA Consultations 02/04/22 14:03 ED Decision to Admit Stat Hospital Course (1) Dysphonia: Liz is an 86-year-old female with past medical history of CAD, hypertension, hyperlipidemia, diabetes type 2, CHF, A. fib on anticoagulation, home oxygen, pulmonary hypertension, and GERD who presents with fatigue and who is COVID-positive. She was treated for COVID with steroids, and also for a acute on chronic COPD exacerbation. She did have urinary symptoms and was found to have an E. coli UTI and was treated with cefdinir during admission. Her breathing clinically improved and returned to baseline, however patient remained volume contracted with an KALEE and hyperkalemia. Oral fluids were encouraged, she was treated with careful fluid boluses, and her Lasix was held. Her creatinine down trended to normal, and potassium down trended to normal. Her telmisartan was held. On day of discharge her creatinine was near baseline, potassium normal, and her breathing and energy was near normal per patient. She is seen by PT who did recommend inpatient rehab, this was discussed with the patient who adamantly refused this for return home. She reported that she had help at home, understood that she was likely weak and was at increased risk of falls which could cause fractures which could be debilitating life-threatening or fatal, but refused rehab but was agreeable to home health. This discussed with patient's family who would arrange additional support for patient at home, and noted that she had refused rehab on prior hospitalizations as well. She was discharged to continue treatments as below. To do as outpatient: 1. Complete dexamethasone 6 mg daily 10-day course for COVID 2. Complete 3 additional days of cefdinir 300 mg daily (adjusted for renal function) 3. Continue to hold telmisartan, was hypokalemic during admission. Have BMP rechecked within 1 week as outpatient and restart/adjust Lasix and telmisartan as outpatient 4. Follow-up with PCP within 1 week 5. Consider addition of SGLT2 for DM control/cardioprotection Fatigue, shortness of breath, decreased appetite 2/2 COVID Symptoms began 10 days ago +productive greenish cough Shortness of breath worsened with exertion, does have 2 L oxygen requirement at night and PRN with exertion. - COVID + - Vaccinated with booster - Fatigue with exertion Improving respiratory status, minimal wheezes today COPD with exacerbation 2/2 COVID - Increased yellow sputum ~1 week after covid sx FEV1/FVC 60%, FEV1 0.94 60% 09/2021, with chronic hypoxemic respiratory failure on 2 L nightly Continue Symbicort - Continue Spiriva Received dexamethasone 10 mg IV x1 in ER Continue dexamethasone 6 mg daily for 10-day total course Nebs as needed Hyperglycemia, steroids, DM control as below Dysphonia Intermittent with history of flexible video stroboscopy which showed thickened secretions Continue PPI therapy, famotidine 20 mg nightly CKD 3 Baseline EGFR approximately 2930 Follows with [facility] Renally dose medications BMP daily - Admit Cr 1.74 - Baseline cr ~1.6-1.7 Improvement in creatinine to 1.75 with small fluid bolus yesterday, p.o. intake remains poor, and while downtrending creatinine remains slightly above baseline. Potassium downtrending but still remains elevated. Clinically dry on exam, no lower edema. Lasix held and additional IV FM given today, BMP trended. Telmisartan remains held. Hyperkalemia Potassium as noted Telmisartan held Patient clinically volume depleted NSS bolus, PEG twice daily, oral hydration encouraged, trended Troponin Elevation - HS-trop 21.4. No chest pain Troponin down trended EKG without acute ST-T changes Sleep apnea CPAP nightly Pulmonary hypertension Home oxygen requirement of 2 L at night Pulm report 11/18/2021 ICS/LABA Symbicort. Spiriva has been stopped previously for unclear reasons Suspected group 2 disease from heart failure with preserved ejection fraction and longstanding hypertension by echo Pulmonary hypertension specific therapy contraindicated No evidence of primary parenchymal process, stable PFTs Heart cath and echo as noted Diuretics deferred to PCP Recommended SGLT2 evaluation Continued on Lasix 40 mg every other day and as needed for weight gain SGLT2 deferred to follow-up appointment Atrial fibrillation Persistent, rate controlled & Eliquis Continue Eliquis Continue carvedilol - Rate controlled on admit Heart failure with preserved ejection fraction Right heart cath [facility] 11/2021: RA 14, RV 70/12, PA 70/31 (44), PAWP 24, Adi CO/CI 3.0/1.9, Thermo CO/CI 1.9/1.2, PaO2 50% - Echo 07/2021: Small LV, moderate LVH, LVEF greater than 70%, RV mildly dilated borderline RV function. Mild mitral stenosis, mild MR, moderate to severe TR. Estimated PASP 95-100, RA 8 No history of occlusive CAD Continue simvastatin The losartan temporarily held with hyperkalemia as noted. Continue Lasix 40 mg every other day as needed, currently held in the setting of volume contraction Continue carvedilol 3.125 mg p.o. twice daily Type 2 diabetes mellitus Last A1c 7.5% Loosened A1c due to hypoglycemic episodes and age On basal 8 units and SSI at home Converted to basal/bolus based on home total insulin dose. Patient with uptrending hyperglycemia 02/05 in the setting of steroid use Patient remains on SSI with glargine, increase to 24 units. Pharmacy following (2) Gastritis: (3) Chronic hypoxemic respiratory failure: (4) Pulmonary hypertension: (5) On home oxygen therapy: (6) Atrial fibrillation: (7) Chronic kidney disease, stage IV (severe): (8) Congestive heart failure: (9) COPD (chronic obstructive pulmonary disease): (10) CAD (coronary artery disease): (11) Hypertension: (12) Diabetes mellitus, type 2: (13) GERD (gastroesophageal reflux disease): (14) COVID-19: Total Time Total Time Spent Total Time Spent (In Minutes): Time spend day of discharge 50 minutes including direct patient care, documentation, review of labs and images, and coordination of care. Discharge Plan Discharge Items Patient Disposition: Home - Home Health Services Reason For Visit: COPD EXACERBATION, COVID PNA, HYPERKALEMIA Discharge Diagnosis: COVID COPD Hyperkalemia Activity: Per Instructions section Non-emergency contact: Primary Care Provider Call non-emergency contact if: you have any medication questions and your sym ptoms worsen Follow-up/Referrals: Jeyson Peña MD [Primary Care Provider] - Diet: Carb Consistent or DM2 and Heart Healthy Addtl Attending Provider Instructions: You were seen in the hospital for fatigue and weakness, and were found to be COVID positive. You were hyperkalemic (had a high potassium in your blood) during admission, this improved to normal by time of discharge. You are treated with a steroid, dexamethasone. Please continue to take dexamethasone 6 mg by mouth daily for 7 more days to complete a 10-day course. You are initially placed on an antibiotic for a COPD exacerbation likely due to COVID, you were also found to have an E. coli UTI and this antibiotic was switched to better cover for both. Please continue to take cefdinir, an antibiotic, 300 mg by mouth daily for 3 more days to complete a course of treatment. Your breathing had returned to near baseline by time of discharge. Your potassium was elevated during admission. This returned to normal at time of discharge. Your kidney numbers were also elevated during admission, these had improved to near your normal baseline at time of discharge. Your telmisartan has been held as this can contribute to high potassium levels. Please discuss this with your primary care physician at your follow-up appointment within 1 week, have blood work (a BMP) drawn within 1 week, and have your blood pressure medicine adjusted based on these results. You are seen by physical therapy who did recommend rehab. You had refused inpatient rehab, and wished to return home. You expressed an understanding of the risk of weakness and falls, and that you are likely more weak following your illnesses. You were able to express the risk/benefits of returning home, and opted to return home with home health physical therapy and family care. This was discussed with your family prior to discharge. If you develop any new or worsening symptoms including fever, chills, sweats, chest pain, chest pressure, difficulty breathing, uncontrolled nausea/vomiting, rash, wheezing, passing out or nearly passing out, bleeding, black/bloody bowel movements, or other new or concerning symptoms please call your primary care physician, or call 911 for re-evaluation in the emergency department if you are very concerned. Pending Studies at Discharge: No Stand-Alone Forms: My [facility], Smoking Cessation Medications and DC Order Prescriptions: New cefdinir 300 mg Capsule 300 mg PO DAILY 3 Days Qty: 3 RF: 0 Continued (DME) lancets [TechLITE Lancets] 30 gauge misc See Rx Instructions .ROUTE .MEDSUPPLY Qty: 400 RF: 3 simvastatin 40 mg tablet 40 mg PO HS Qty: 90 RF: 3 budesonide-formoterol [Symbicort] 160-4.5 mcg/actuation HFA aerosol inhaler 2 puff inhalation BID Qty: 3 RF: 2 Eliquis 2.5 mg tablet 2.5 mg PO BID Qty: 180 RF: 3 albuterol sulfate 90 mcg/actuation HFA aerosol inhaler 2 puff inhalation Q6H PRN (Reason: shortness of breath or wheezing) Qty: 3 RF: 1 carvedilol 3.125 mg tablet 3.125 mg PO BID Qty: 180 RF: 3 (DME) Portable Oxygen Misc See Rx Instructions .Route Qty: 1 RF: 0 allopurinol 100 mg tablet 200 mg PO QAM Qty: 180 RF: 3 (DME) pen needle, diabetic [BD Ultra-Fine Vielka Pen Needle] 32 gauge x 5/32" needle See Dose Instructions .ROUTE .MEDSUPPLY Qty: 400 RF: 3 (DME) FreeStyle Jelly 2 Sensor Kit See Rx Instructions .Route RF: 0 (DME) FreeStyle Jlely 2 [place] Misc See Rx Instructions .Route RF: 0 Novolog Flexpen U-100 Insulin 100 unit/mL (3 mL) insulin pen See Rx Instructions SUBCUT .COMPLEX 90 Days Qty: 30 RF: 3 gabapentin 600 mg tablet 600 mg PO TID RF: 0 levalbuterol HCl 1.25 mg/3 mL solution for nebulization 1.25 mg INH Q4H PRN (Reason: shortness of breath or wheezing) Qty: 90 RF: 3 furosemide [Lasix] 40 mg tablet 40 mg PO Q OTHER DAY PRN (Reason: Edema) Qty: 45 RF: 1 (DME) blood sugar diagnostic Strip See Rx Instructions .ROUTE .MEDSUPPLY RF: 0 glucosamine-chondroitin [Osteo Bi-Flex] 250-200 mg Tablet 2 tab PO BID RF: 0 ferrous sulfate 325 mg (65 mg iron) tablet 325 mg PO QAM RF: 0 travoprost [Travatan Z] 0.004 % Drops 1 drp OPB HS RF: 0 Spiriva with HandiHaler 18 mcg capsule, w/inhalation device 1 cap INHALATION QAM RF: 0 calcium carbonate [Calcium 600] 600 mg calcium (1,500 mg) tablet 600 mg PO QAM RF: 0 famotidine [Acid Operating System Designer (famotidine)] 20 mg tablet 20 mg PO HS RF: 0 pantoprazole 40 mg tablet,delayed release (DR/EC) 40 mg PO BID RF: 0 insulin glargine [Lantus Solostar U-100 Insulin] 100 unit/mL (3 mL) insulin pen 8 unit subcut HS RF: 0 Discontinued telmisartan 40 mg tablet 40 mg PO QDD RF: 0 Discharge Orders: Discharge Order (Routine); Ordered 02/07/22 Ordered By: Jeyson Frausto Admission Data Admit Date/Time: 02/07/22 09:01 Attending Provider: Jeyson Frausto Admit Provider: Jeyson Frausto Primary Care Provider: Jeyson Peña Other Providers: Jeyson Frausto Coding Level of Care Code D/C DAY MANAGEMENT >30 MINS Diagnoses Dysphonia R49.0 Gastritis K29.70 Chronic hypoxemic respiratory failure J96.11 Pulmonary hypertension I27.20 On home oxygen therapy Z99.81 Atrial fibrillation I48.91 Chronic kidney disease, stage IV (severe) N18.4 Congestive heart failure I50.9 COPD (chronic obstructive pulmonary disease) J44.9 CAD (coronary artery disease) I25.10 Hypertension I10 Diabetes mellitus, type 2 E11.9 GERD (gastroesophageal reflux disease) K21.9 COVID-19 U07.1
== END 2022-02-07 17:22 | disposition home health service (06) | DRG 178 ==
LOC: EDINP 11:22 → ED 11:22 → 2S 23:15

== ENCOUNTER 2022-02-08 23:14 | Inpatient (IN) ==
--- NOTE | 2022-02-08 23:48 | Emergency Department Note ---
History of Present Illness General Chief complaint: Illness Stated complaint: SWELLING IN FEET, CONFUSION, UTI Time Seen by Provider: 02/08/22 23:30 History of Present Illness 86-year-old female who presents the emergency department due to generalized weakness and not taking her medications. Patient was discharged yesterday from our facility for urinary tract infection and COVID. Patient was evaluated and it was recommended that the patient receive inpatient rehabilitation however the patient denied that and wanted to go home. Family at the bedside states that the patient will not take her pills or her current antibiotics and she is feeling weak. They feel that the patient should be readmitted so she can go to a rehab. Patient is a poor historian as she does not really answer any of my questions Home Medications Medication Instructions Recorded Confirmed Type glucosamine-chondroitin 250 mg-200 2 tab PO BID 05/13/18 02/09/22 History mg tablet (Osteo Bi-Flex) levalbuterol HCl 1.25 mg/3 mL 1.25 mg INH Q4H PRN #90 ml 07/28/19 02/09/22 Rx solution for nebulization ferrous sulfate 325 mg (65 mg 325 mg PO QAM tab 06/24/20 02/09/22 History iron) tablet travoprost 0.004 % eye drops 1 drp OPB HS 11/13/20 02/09/22 History (Travatan Z) TechLITE Lancets 30 gauge (lancets) #400 ea NS 12/26/20 01/21/22 Rx simvastatin 40 mg tablet 40 mg PO HS #90 tab 02/04/21 02/09/22 Rx flash glucose scanning reader 07/31/21 01/21/22 History (FreeStyle Jelly 2 [employer]) flash glucose sensor (FreeStyle 07/31/21 01/21/22 History Jelly 2 Sensor) apixaban 2.5 mg tablet (Eliquis) 2.5 mg PO BID #180 tab 08/18/21 02/09/22 Rx budesonide-formoterol HFA 160 2 puff INHALATION BID #3 inhaler 08/18/21 02/09/22 Rx mcg-4.5 mcg/actuation aerosol inhaler (Symbicort) albuterol sulfate 90 mcg/actuation 2 puff INHALATION Q6H PRN #3 09/04/21 02/09/22 Rx aerosol inhaler inhaler gabapentin 600 mg tablet 600 mg PO TID tab 09/15/21 02/09/22 History carvedilol 3.125 mg tablet 3.125 mg PO BID #180 tab 09/24/21 02/09/22 Rx blood sugar diagnostic ea 09/26/21 01/21/22 History Portable Oxygen #1 ea 10/17/21 01/21/22 Rx Novolog Flexpen U-100 Insulin 100 See Rx Instructions SUBCUT 10/28/21 02/09/22 Rx unit/mL (3 mL) subcutaneous .COMPLEX 90 Days #30 ml NS (insulin aspart U-100) allopurinol 100 mg tablet 200 mg PO QAM #180 tab 12/19/21 02/09/22 Rx furosemide 40 mg tablet (Lasix) 40 mg PO Q OTHER DAY PRN #45 tab 12/22/21 02/09/22 Rx BD Ultra-Fine Vielka Pen Needle 32 #400 ea NS 01/15/22 01/21/22 Rx gauge x 5/32" (pen needle, diabetic) calcium carbonate 600 mg calcium 600 mg PO QAM 02/04/22 02/09/22 History (1,500 mg) tablet (Calcium) famotidine 20 mg tablet (Acid 20 mg PO HS 02/04/22 02/09/22 History Heavy Threader (famotidine)) insulin glargine 100 unit/mL (3 8 unit SUBCUT HS 02/04/22 02/09/22 History mL) subcutaneous pen (Lantus Solostar U-100 Insulin) pantoprazole 40 mg tablet,delayed 40 mg PO BID 02/04/22 02/09/22 History release tiotropium bromide 18 mcg capsule 1 cap INHALATION QAM 02/04/22 02/09/22 History with inhalation device (Spiriva with HandiHaler) cefdinir 300 mg capsule 300 mg PO DAILY 3 Days #3 cap 02/07/22 02/09/22 Rx Allergies Allergy/AdvReac Type Severity Reaction Status Date / Time Sulfa (Sulfonamide Allergy Severe ANAPHYLAXIS; Verified 02/08/22 23:59 Antibiotics) TAKES AMARYL W/O REACTION cephalexin [From Keflex] Allergy Intermediate Headahce; Verified 02/08/22 23:59 Nausea; Rash nystatin Allergy Intermediate Wheezing Verified 02/08/22 23:59 amoxicillin [From Augmentin] Allergy Unknown CAN'T Verified 02/08/22 23:59 REMEMBER clavulanic acid Allergy Unknown CAN'T Verified 02/08/22 23:59 [From Augmentin] REMEMBER thyroid, pork Allergy Unknown "ALL Verified 02/08/22 23:59 THYROID AGENTS"-PT UNSURE OF REACTION Cephalosporins AdvReac Intermediate KEFLEX Verified 02/08/22 23:59 ALLERGY -NAUSEA Past Med/Surg History Medical History Adverse reaction to anesthetic agent Hard to wake up Anemia Asthma CAD (coronary artery disease) NON-OBSTRUCTIVE Cardiorenal syndrome Chronic anticoagulation Chronic back pain RLE RADICULOPATHY Chronic hypoxemic respiratory failure Chronic kidney disease, stage III (moderate) Congestive heart failure DIASTOLIC COPD (chronic obstructive pulmonary disease) Decreased oral intake Depression Diabetes mellitus, type 2 Dyspnea on exertion GERD (gastroesophageal reflux disease) CONTROLLED Glaucoma Gout Headache TEMPORAL BIOPSY DONE IN 2018 Hiatal hernia History of central retinal artery occlusion History of diverticulitis History of hypothyroidism EUTHYROID ON MORE RECENT TESTING Hx of gout Hyperlipidemia Hypertension Hyponatremia Lumbar spinal stenosis Nausea Nocturnal hypoxemia On home oxygen therapy WEARS 2L O2 "MOST OF THE TIME" Osteoarthritis Pulmonary HTN SEVERE PULMONARY HTN (RVSP > 60MMHG) Pulmonary hypertension Pulmonary nodule Seizure 18 YEARS AGO; NO ISSUES SINCE Tremor ESSENTIAL TREMOR (HEAD) Valvular disease MODERATE TO SEVERE TR. MODERATE AV SCLEROSIS Vitamin D deficiency Surgical History History of cardiac cath 2008 NO STENTS History of cataract surgery RT/LEFT History of dacryocystorhinostomy bilateral History of dilation and curettage History of surgery CYSTOCELE REPAIR RECTOCELE REPAIR History of temporal artery biopsy 02/08/14= MAC SEDATION WITHOUT ISSUES AT [facility] History of tooth extraction History of total hip arthroplasty (~07/16/09) LEFT Family History Father , Age 60 from [place] Myocardial infarction Diabetes Hypertension Grandfather Stroke Mother Cancer Hearing loss Allergies Aunt Hearing loss Other Asthma Coronary heart disease Heart disease No family history of adverse response to anesthesia No family history of bleeding disorder Denies family history of Ovarian cancer Prostate cancer Breast cancer Lung cancer Colorectal cancer Social History Smoking Status: Never smoker Second Hand Exposure: No; Hx Alcohol Use: No Hx Substance Use: No Preferred Language: Luxembourgish Communication Ability: Effective Visual Impairment: No Limitations Hearing Ability: Normal Front Maker Required: No Beliefs That Will Affect Care: None marital status: / Current Living Situation: Alone Current Living Situation Comment: pt is sister's caregiver current occupational status: retired How many Children do You have: 2 Feels Safe at Home: Yes Childhood Exposure to Second-Hand Smoke: No caffeine: Yes Dental Care, Regularly: Yes Physical Activity Frequency: Does not Exercise Seatbelt Use: always Sunscreen Use: Yes Assistive Devices: Cane, Oxygen - at Night and Walker Review of Systems A total of 10 systems reviewed and were otherwise negative Constitutional: + chills Genitourinary (Female): + urinary frequency Physical Exam Vital Signs Vital Signs - 24 hr 02/08/22 23:20 02/09/22 00:16 02/09/22 00:17 Temperature 36.5 C Temperature Source Temporal Artery Scan Pulse Rate 76 76 Pulse Rate [Finger] 76 Pulse Rhythm [Finger] Pulse Strength [Finger] Respiratory Rate 16 16 16 Respiratory Effort / Characteristics Non-Labored Spontaneous Non-Labored Spontaneous Respiratory Depth Normal Blood Pressure [Right Arm] 163/91 H Blood Pressure Mean [Right Arm] 115 Blood Pressure Position [Right Arm] Lying Pulse Oximetry 98 99 99 Oxygen Delivery Method Room Air Room Air Room Air Sepsis Recent Fever Within 48 Hours No Sepsis New/Unexplained Change in Mental Status N/A Sepsis Action Taken by Nursing No Action Required 02/09/22 01:17 02/09/22 01:50 02/09/22 01:51 Temperature Temperature Source Pulse Rate Pulse Rate [Finger] 87 69 Pulse Rhythm [Finger] Regular Pulse Strength [Finger] Normal Respiratory Rate 16 17 17 Respiratory Effort / Characteristics Non-Labored Spontaneous Non-Labored Spontaneous Non-Labored Spontaneous Respiratory Depth Normal Normal Blood Pressure [Right Arm] 148/92 H 165/82 H Blood Pressure Mean [Right Arm] 110 109 Blood Pressure Position [Right Arm] Lying Pulse Oximetry 97 98 98 Oxygen Delivery Method Room Air Room Air Room Air Sepsis Recent Fever Within 48 Hours Sepsis New/Unexplained Change in Mental Status Sepsis Action Taken by Nursing VITAL SIGNS - Vital signs and nursing notes were reviewed. GENERAL - No acute distress. Communicates well with provider and answers questions appropriately. SKIN - Without rashes. HEAD - NC/AT. EYES - PERRL with EOMI bilaterally. Sclera anicteric. Palpebral conjunctiva pink and moist with no injection noted. EARS - No deformities of external structures noted on gross examination bilaterally. NOSE - Midline and without cyanosis. No epistaxis or purulent drainage noted. Septum midline without deviation or septal hematoma noted. MOUTH/OROPHARYNX - Without perioral cyanosis. NECK - Neck with FROM. LUNGS - Chest wall symmetric without accessory muscle use, intercostals retractions, or central cyanosis. Normal vesicular breath sounds CTA B/L. No wheezes, rales, or rhonchi appreciated. CARDIAC - RRR with S1/S2. No murmur, rubs, or gallops appreciated. ABDOMEN - Abdominal contour soft without pulsations or visible masses. BS normoactive all four quadrants. No tenderness, palpable masses, hepatosplenomegaly, or ascites noted. EXTREMITIES - No clubbing or peripheral cyanosis. +5/5 strength noted in UE/LE bilaterally. NEUROLOGIC - Cranial nerves II through XII grossly intact. PSYCH - A&Ox3 and cooperates fully with examiner. Pt is very pleasant and interacts well with examiner. Course Reevaluation(s) Reevaluation #1: Patient is resting in no distress will be admitted by the [facility]ist Time: 01:03 Medical Decision Making Medical Records Attestation: I reviewed the patient's medical records. Home Medications Current Medication List: was personally reviewed by me Laboratory Data Attestation: I reviewed the patient's lab results. Result diagrams: 02/09/22 00:08 02/09/22 01:11 Lab Results 02/09/22 02/09/22 02/09/22 Range/Units 00:08 00:08 00:08 WBC 14.14 H (4.8-10.8) K/uL RBC 3.96 L (4.2-5.4) M/uL Hgb 13.1 (12.0-16.0) g/dL Hct 37.9 (37-47) % MCV 95.7 (80-100) fL MCH 33.1 (25-34) pg MCHC 34.6 (32-36) g/dL RDW Std Deviation 50.6 H (36.4-46.3) fL RDW Coeff of Terri 14.6 H (11.5-14.5) % Plt Count 231 (130-400) K/uL MPV 10.7 H (7.4-10.4) fL Immature Gran % (Auto) 0.7 % Neut % (Auto) 85.3 % Lymph % (Auto) 5.9 % Teller % (Auto) 7.9 % Eos % (Auto) 0.1 % Baso % (Auto) 0.1 % Neut # (Auto) 12.07 H (1.4-6.5) K/uL Lymph # (Auto) 0.83 L (1.2-3.4) K/uL Teller # (Auto) 1.12 H (0.11-0.59) K/uL Eos # (Auto) 0.01 (0-0.5) K/uL Baso # (Auto) 0.01 (0-0.2) K/uL Immature Gran # (Auto) 0.10 H (0.00-0.02) K/uL Absolute Nucleated RBC 0.03 H (0-0) K/uL Nucleated RBC % (auto) 0.2 % PT Cancelled INR Cancelled APTT Cancelled PTT Ratio Cancelled Sodium TNP Potassium TNP Chloride 105 (98-107) mmol/L Carbon Dioxide 18 L (21-32) mmol/L Anion Gap TNP BUN 67 H (6-23) mg/dl Creatinine 1.74 H (0.6-1.2) mg/dl Est Cr Clr Drug Dosing Not Reportable Est GFR ( Amer) 30.0 ml/min Est GFR (Non-Af Amer) 25.9 ml/min BUN/Creatinine Ratio 38.5 H (10-20) Glucose 182 H (70-99(Fasting)) mg/dl Lactate (0.4-2.0) mmol/L Calcium 9.5 (8.5-10.1) mg/dl Magnesium TNP Total Bilirubin 0.9 (0.2-1.0) mg/dl AST TNP ALT 35 (7-52) U/L Alkaline Phosphatase 82 (34-104) U/L Total Protein 8.2 (6.0-8.3) gm/dl Albumin 4.2 (3.4-5.0) gm/dl Globulin 4.0 (2.5-4.0) gm/dl Albumin/Globulin Ratio 1.1 (0.9-2) 06/27/22 06/27/22 06/27/22 Range/Units 00:08 01:11 01:11 WBC (4.8-10.8) K/uL RBC (4.2-5.4) M/uL Hgb (12.0-16.0) g/dL Hct (37-47) % MCV (80-100) fL MCH (25-34) pg MCHC (32-36) g/dL RDW Std Deviation (36.4-46.3) fL RDW Coeff of Terri (11.5-14.5) % Plt Count (130-400) K/uL MPV (7.4-10.4) fL Immature Gran % (Auto) % Neut % (Auto) % Lymph % (Auto) % Teller % (Auto) % Eos % (Auto) % Baso % (Auto) % Neut # (Auto) (1.4-6.5) K/uL Lymph # (Auto) (1.2-3.4) K/uL Teller # (Auto) (0.11-0.59) K/uL Eos # (Auto) (0-0.5) K/uL Baso # (Auto) (0-0.2) K/uL Immature Gran # (Auto) (0.00-0.02) K/uL Absolute Nucleated RBC (0-0) K/uL Nucleated RBC % (auto) % PT 12.2 H INR 1.2 H APTT 23.1 PTT Ratio 0.8 Sodium 137 Potassium 4.7 Chloride (98-107) mmol/L Carbon Dioxide (21-32) mmol/L Anion Gap BUN (6-23) mg/dl Creatinine (0.6-1.2) mg/dl Est Cr Clr Drug Dosing Est GFR ( Amer) ml/min Est GFR (Non-Af Amer) ml/min BUN/Creatinine Ratio (10-20) Glucose (70-99(Fasting)) mg/dl Lactate 1.6 (0.4-2.0) mmol/L Calcium (8.5-10.1) mg/dl Magnesium 2.2 Total Bilirubin (0.2-1.0) mg/dl AST 19 ALT (7-52) U/L Alkaline Phosphatase (34-104) U/L Total Protein (6.0-8.3) gm/dl Albumin (3.4-5.0) gm/dl Globulin (2.5-4.0) gm/dl Albumin/Globulin Ratio (0.9-2) Imaging Data Attestation: I personally reviewed and interpreted this imaging study as follows: ECG Data Attestation: I personally reviewed and interpreted this ECG as follows: Additional Comments: EKG interpreted by me atrial fibrillation rate of 106 versus atrial flutter, no obvious ST segment elevation or depression; right axis deviation MDM Narrative Medical decision making differential diagnosis deconditioning, urinary tract infection, COVID, metabolic derangement, dehydration; plan is to recheck labs and admit this patient Impression & Plan Weakness, Acute UTI (urinary tract infection), COVID-19, KALEE (acute kidney injury) Discharge Plan Visit Data Chief Complaint: Illness Stated Complaint: SWELLING IN FEET, CONFUSION, UTI ED Provider: Tushar Verde Discharge Problem: Weakness, Acute UTI (urinary tract infection), COVID-19, KALEE (acute kidney injury) Patient Disposition: Being Evaluated by Hospitalist Forms Stand Alone Forms: My [facility] Prescriptions Prescriptions: No Action (DME) lancets [TechLITE Lancets] 30 gauge misc See Rx Instructions .ROUTE .MEDSUPPLY Qty: 400 RF: 3 simvastatin 40 mg tablet 40 mg PO HS Qty: 90 RF: 3 budesonide-formoterol [Symbicort] 160-4.5 mcg/actuation HFA aerosol inhaler 2 puff inhalation BID Qty: 3 RF: 2 Eliquis 2.5 mg tablet 2.5 mg PO BID Qty: 180 RF: 3 albuterol sulfate 90 mcg/actuation HFA aerosol inhaler 2 puff inhalation Q6H PRN (Reason: shortness of breath or wheezing) Qty: 3 RF: 1 carvedilol 3.125 mg tablet 3.125 mg PO BID Qty: 180 RF: 3 (DME) Portable Oxygen Misc See Rx Instructions .Route Qty: 1 RF: 0 allopurinol 100 mg tablet 200 mg PO QAM Qty: 180 RF: 3 (DME) pen needle, diabetic [BD Ultra-Fine Vielka Pen Needle] 32 gauge x 5/32" needle See Dose Instructions .ROUTE .MEDSUPPLY Qty: 400 RF: 3 (DME) FreeStyle Jelly 2 Sensor Kit See Rx Instructions .Route RF: 0 (DME) FreeStyle Jelly 2 [employer] Misc See Rx Instructions .Route RF: 0 Novolog Flexpen U-100 Insulin 100 unit/mL (3 mL) insulin pen See Rx Instructions SUBCUT .COMPLEX 90 Days Qty: 30 RF: 3 gabapentin 600 mg tablet 600 mg PO TID RF: 0 levalbuterol HCl 1.25 mg/3 mL solution for nebulization 1.25 mg INH Q4H PRN (Reason: shortness of breath or wheezing) Qty: 90 RF: 3 furosemide [Lasix] 40 mg tablet 40 mg PO Q OTHER DAY PRN (Reason: Edema) Qty: 45 RF: 1 (DME) blood sugar diagnostic Strip See Rx Instructions .ROUTE .MEDSUPPLY RF: 0 glucosamine-chondroitin [Osteo Bi-Flex] 250-200 mg Tablet 2 tab PO BID RF: 0 ferrous sulfate 325 mg (65 mg iron) tablet 325 mg PO QAM RF: 0 travoprost [Travatan Z] 0.004 % Drops 1 drp OPB HS RF: 0 Spiriva with HandiHaler 18 mcg capsule, w/inhalation device 1 cap INHALATION QAM RF: 0 calcium carbonate [Calcium 600] 600 mg calcium (1,500 mg) tablet 600 mg PO QAM RF: 0 famotidine [Acid Heavy Threader (famotidine)] 20 mg tablet 20 mg PO HS RF: 0 pantoprazole 40 mg tablet,delayed release (DR/EC) 40 mg PO BID RF: 0 insulin glargine [Lantus Solostar U-100 Insulin] 100 unit/mL (3 mL) insulin pen 8 unit subcut HS RF: 0 cefdinir 300 mg Capsule 300 mg PO DAILY 3 Days Qty: 3 RF: 0 Referrals Referrals: Jeyson Peña MD [Primary Care Provider] -
[2022-02-09 00:25] LABS: Basophils # (auto) 0.01 K/uL (0-0.2); Basophils % (auto) 0.1 %; Eosinophils # (auto) 0.01 K/uL (0-0.5); Eosinophils % (auto) 0.1 %; Hematocrit (blood only) 37.9 % (37-47); Hemoglobin 13.1 g/dL (12.0-16.0); Immature Granulocytes % (auto) 0.7 %; Lymphocytes # (auto) 0.83 K/uL (1.2-3.4); Lymphocytes % (auto) 5.9 %; Mean Corpuscular Hemoglobin 33.1 pg (25-34); Mean Corpuscular Hgb Conc 34.6 g/dL (32-36); Mean Corpuscular Volume 95.7 fL (80-100); Mean Platelet Volume 10.7 fL (7.4-10.4); Monocytes # (auto) 1.12 K/uL (0.11-0.59); Monocytes % (auto) 7.9 %; Neutrophils # (auto) 12.07 K/uL (1.4-6.5); Neutrophils % (auto) 85.3 %; Nucleated RBC # (auto) 0.03 K/uL (0-0); Nucleated RBC % (auto) 0.2 %; Platelet Count 231 K/uL (130-400); RDW Coefficient of Variation 14.6 % (11.5-14.5); RDW Standard Deviation 50.6 fL (36.4-46.3); Red Blood Count 3.96 M/uL (4.2-5.4); White Blood Count 14.14 K/uL (4.8-10.8)
[2022-02-09 01:00] LABS: Alanine Aminotransferase 35 U/L (7-52); Albumin Globulin Ratio 1.1 (0.9-2); Albumin Level 4.2 gm/dl (3.4-5.0); Alkaline Phosphatase 82 U/L (34-104); BUN Creatinine Ratio 38.5 (10-20); Bilirubin,Total 0.9 mg/dl (0.2-1.0); Blood Urea Nitrogen 67 mg/dl (6-23); Calcium 9.5 mg/dl (8.5-10.1); Carbon Dioxide 18 mmol/L (21-32); Chloride 105 mmol/L (98-107); Est GFR (Non-African American) 25.9 ml/min; Glucose 182 mg/dl (70-99(Fasting)); Total Protein 8.2 gm/dl (6.0-8.3)
[2022-02-09 01:32] LABS: INR 1.2 (0.9-1.1); Partial Thromboplastin Ratio 0.8; Partial Thromboplastin Time 23.1 Seconds (21.0-31.0); Prothrombin Time 12.2 Seconds (9.0-12.0)
[2022-02-09 01:53] LABS: Magnesium 2.2 mg/dl (1.7-2.4); Potassium 4.7 mmol/L (3.5-5.1)
[2022-02-09] MEDS ORDERED: levoFLOXacin/D5W 500 MG/100 ML BAG IV SCH ×2 (02:15→03:00)
--- NOTE | 2022-02-09 04:03 | History & Physical Report ---
Date of Service February 09, 2022 Assessment & Plan (1) Chronic hypoxemic respiratory failure: Plan: Acute on chronic respiratory failure with hypoxia/COPD exacerbations classic COVID-19 infection- Resume dexamethasone 6 mg p.o. daily to help address generalized symptoms of fatigue secondary to COVID DuoNebs every 2 hours as needed Patient's pulse ox is 98% on room air Continue her usual inhalers (2) Adult failure to thrive: (3) Acute UTI (urinary tract infection): Plan: Patient was to take cefdinir on discharge, however, did not take it Placed on levofloxacin 500 mg IV daily for E. coli UTI is pansensitive, take into account her multiple antibiotic sensitivities (4) COVID-19: Plan: Resume COVID-19 treatment with dexamethasone as noted (5) Gastritis: (6) Acute exacerbation of chronic obstructive pulmonary disease: (7) Atrial fibrillation: Plan: Atrial fibrillation/CAD/hypertension continue apixaban, carvedilol, (8) Chronic kidney disease, stage IV (severe): Plan: Follow laboratory serially creatinine in her usual range (9) CAD (coronary artery disease): (10) Hyperlipidemia: (11) Hypertension: (12) Depression: (13) Diabetes mellitus, type 2: (14) GERD (gastroesophageal reflux disease): Plan: The patient was discharged to home, after failed attempts to encourage her to go to a inpatient rehab center Patient's family is understanding that the patient cannot be discharged home again, and attemptwill be made to arrange for suitable inpatient rehab for patient In the interim, her medication treatments will be resumed as noted above and prior to discharge History of Present Illness Chief Complaint: The patient is brought to the emergency department by family after having been discharged from the hospital by 24 hours ago, due to generalized weakness and the patient not taking her medications Primary Care Provider: Jeyson Peña MD The patient is an 86-year-old female with a past medical history including acute urinary tract infection, COVID-19, acute kidney injury, dysphonia, gastritis, chronic respiratory failure with hypoxia, pulmonary pretension, atrial fibrillation, CKD stage IV, COPD, CAD, hypertension, hyperlipidemia, diabetes mellitus and GERD. The patient was most recently admitted to [facility] from 02/04-02/07/22, and was advised to go to inpatient rehab post admission, but refused to do so and insisted on going home. Upon arrival home, family has not been unable to get the patient to take her medications, and was having significant issues with generalized weakness. The patient's main new symptom since discharge is progression of weakness Allergies Allergy/AdvReac Type Severity Reaction Status Date / Time Sulfa (Sulfonamide Allergy Severe ANAPHYLAXIS; Verified 02/08/22 23:59 Antibiotics) TAKES AMARYL W/O REACTION cephalexin [From Keflex] Allergy Intermediate Headahce; Verified 02/08/22 23:59 Nausea; Rash nystatin Allergy Intermediate Wheezing Verified 02/08/22 23:59 amoxicillin [From Augmentin] Allergy Unknown CAN'T Verified 02/08/22 23:59 REMEMBER clavulanic acid Allergy Unknown CAN'T Verified 02/08/22 23:59 [From Augmentin] REMEMBER thyroid, pork Allergy Unknown "ALL Verified 02/08/22 23:59 THYROID AGENTS"-PT UNSURE OF REACTION Cephalosporins AdvReac Intermediate KEFLEX Verified 02/08/22 23:59 ALLERGY -NAUSEA Home Medications Medication Instructions Recorded Confirmed Type glucosamine-chondroitin 250 mg-200 2 tab PO BID 05/13/18 02/09/22 History mg tablet (Osteo Bi-Flex) levalbuterol HCl 1.25 mg/3 mL 1.25 mg INH Q4H PRN #90 ml 07/28/19 02/09/22 Rx solution for nebulization ferrous sulfate 325 mg (65 mg 325 mg PO QAM tab 06/24/20 02/09/22 History iron) tablet travoprost 0.004 % eye drops 1 drp OPB HS 11/13/20 02/09/22 History (Travatan Z) TechLITE Lancets 30 gauge (lancets) #400 ea NS 12/26/20 01/21/22 Rx simvastatin 40 mg tablet 40 mg PO HS #90 tab 02/04/21 02/09/22 Rx flash glucose scanning reader 07/31/21 01/21/22 History (FreeStyle Jelly 2 [place]) flash glucose sensor (FreeStyle 07/31/21 01/21/22 History Jelly 2 Sensor) apixaban 2.5 mg tablet (Eliquis) 2.5 mg PO BID #180 tab 08/18/21 02/09/22 Rx budesonide-formoterol HFA 160 2 puff INHALATION BID #3 inhaler 08/18/21 02/09/22 Rx mcg-4.5 mcg/actuation aerosol inhaler (Symbicort) albuterol sulfate 90 mcg/actuation 2 puff INHALATION Q6H PRN #3 09/04/21 02/09/22 Rx aerosol inhaler inhaler gabapentin 600 mg tablet 600 mg PO TID tab 09/15/21 02/09/22 History carvedilol 3.125 mg tablet 3.125 mg PO BID #180 tab 09/24/21 02/09/22 Rx blood sugar diagnostic ea 09/26/21 01/21/22 History Portable Oxygen #1 ea 10/17/21 01/21/22 Rx Novolog Flexpen U-100 Insulin 100 See Rx Instructions SUBCUT 10/28/21 02/09/22 Rx unit/mL (3 mL) subcutaneous .COMPLEX 90 Days #30 ml NS (insulin aspart U-100) allopurinol 100 mg tablet 200 mg PO QAM #180 tab 12/19/21 02/09/22 Rx furosemide 40 mg tablet (Lasix) 40 mg PO Q OTHER DAY PRN #45 tab 12/22/21 02/09/22 Rx BD Ultra-Fine [place] Pen Needle 32 #400 ea NS 01/15/22 01/21/22 Rx gauge x 5/32" (pen needle, diabetic) calcium carbonate 600 mg calcium 600 mg PO QAM 02/04/22 02/09/22 History (1,500 mg) tablet (Calcium) famotidine 20 mg tablet (Acid 20 mg PO HS 02/04/22 02/09/22 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)) insulin glargine 100 unit/mL (3 8 unit SUBCUT HS 02/04/22 02/09/22 History mL) subcutaneous pen (Lantus Solostar U-100 Insulin) pantoprazole 40 mg tablet,delayed 40 mg PO BID 02/04/22 02/09/22 History release tiotropium bromide 18 mcg capsule 1 cap INHALATION QAM 02/04/22 02/09/22 History with inhalation device (Spiriva with HandiHaler) cefdinir 300 mg capsule 300 mg PO DAILY 3 Days #3 cap 02/07/22 02/09/22 Rx Past Med/Surg History Medical History Adverse reaction to anesthetic agent Hard to wake up Anemia Asthma CAD (coronary artery disease) NON-OBSTRUCTIVE Cardiorenal syndrome Chronic anticoagulation Chronic back pain RLE RADICULOPATHY Chronic hypoxemic respiratory failure Chronic kidney disease, stage III (moderate) Congestive heart failure DIASTOLIC COPD (chronic obstructive pulmonary disease) Decreased oral intake Depression Diabetes mellitus, type 2 Dyspnea on exertion GERD (gastroesophageal reflux disease) CONTROLLED Glaucoma Gout Headache TEMPORAL BIOPSY DONE IN 2018 Hiatal hernia History of central retinal artery occlusion History of diverticulitis History of hypothyroidism EUTHYROID ON MORE RECENT TESTING Hx of gout Hyperlipidemia Hypertension Hyponatremia Lumbar spinal stenosis Nausea Nocturnal hypoxemia On home oxygen therapy WEARS 2L O2 "MOST OF THE TIME" Osteoarthritis Pulmonary HTN SEVERE PULMONARY HTN (RVSP > 60MMHG) Pulmonary hypertension Pulmonary nodule Seizure 18 YEARS AGO; NO ISSUES SINCE Tremor ESSENTIAL TREMOR (HEAD) Valvular disease MODERATE TO SEVERE TR. MODERATE AV SCLEROSIS Vitamin D deficiency Surgical History History of cardiac cath 2008 NO STENTS History of cataract surgery RT/LEFT History of dacryocystorhinostomy bilateral History of dilation and curettage History of surgery CYSTOCELE REPAIR RECTOCELE REPAIR History of temporal artery biopsy 02/08/14= MAC SEDATION WITHOUT ISSUES AT [facility] History of tooth extraction History of total hip arthroplasty (~07/16/09) LEFT Family History Father , Age 60 from [place] Myocardial infarction Diabetes Hypertension Grandfather Stroke Mother Cancer Hearing loss Allergies Aunt Hearing loss Other Asthma Coronary heart disease Heart disease No family history of adverse response to anesthesia No family history of bleeding disorder Denies family history of Ovarian cancer Prostate cancer Breast cancer Lung cancer Colorectal cancer Social History Smoking Status: Never smoker Second Hand Exposure: No; Hx Alcohol Use: No Hx Substance Use: No Preferred Language: Korean Communication Ability: Effective Visual Impairment: No Limitations Hearing Ability: Normal 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 Required: No Beliefs That Will Affect Care: None marital status: / Current Living Situation: Alone Current Living Situation Comment: pt is sister's caregiver current occupational status: retired How many Children do You have: 2 Feels Safe at Home: Yes Childhood Exposure to Second-Hand Smoke: No caffeine: Yes Dental Care, Regularly: Yes Physical Activity Frequency: Does not Exercise Seatbelt Use: always Sunscreen Use: Yes Assistive Devices: Cane, Oxygen - at Night and Walker Review of Systems Review of Systems: The patient is not able to contribute to her HPI or ROS due to generalized medical state Physical Exam Physical Exam: The patient is awake, has a noticeable tremor, well developed and well nourished, lying in bed and in no acute distress, and primarily response is that she "is not happy" HEENT--PERRL, EOMI, mucous membranes and oropharynx dry. Neck--supple. No JVD. No bruits. Thyroid normal, trachea midline, no adenopathy. Heart--normal S1 and S2. No murmurs, rubs or gallops. Lungs--clear bilaterally, no respiratory distress, no accessory muscle use. Abdomen--normal bowel sounds and soft. Nontender. Nondistended Extremities--no cyanosis or clubbing. No edema. Dermatologic--normal skin turgor, normal color, no abnormal lymph nodes, no rash. Neurologic--cranial nerves II through XII grossly intact. Rheumatologic--normal range of motion. Psychiatric--normal affect. Results & Data Results & Data ([facility]) Vital Signs (Past 12 Hours) Vital Signs Temp Pulse Pulse Resp BP Pulse Ox 02/09/22 03:54 75 18 163/90 H 98 02/09/22 01:51 17 98 02/09/22 01:50 69 17 165/82 H 98 02/09/22 01:17 87 16 148/92 H 97 02/09/22 00:17 76 16 99 02/09/22 00:16 76 16 163/91 H 99 02/08/22 23:20 36.5 C 76 16 98 Laboratory Results Laboratory Results WBC 14.14 K/uL (4.8-10.8) H 02/09/22 00:08 RBC 3.96 M/uL (4.2-5.4) L 02/09/22 00:08 Hgb 13.1 g/dL (12.0-16.0) 02/09/22 00:08 Hct 37.9 % (37-47) 02/09/22 00:08 MCV 95.7 fL (80-100) 02/09/22 00:08 MCH 33.1 pg (25-34) 02/09/22 00:08 MCHC 34.6 g/dL (32-36) 02/09/22 00:08 RDW Std Deviation 50.6 fL (36.4-46.3) H 02/09/22 00:08 RDW Coeff of Terri 14.6 % (11.5-14.5) H 02/09/22 00:08 Plt Count 231 K/uL (130-400) 02/09/22 00:08 MPV 10.7 fL (7.4-10.4) H 02/09/22 00:08 Immature Gran % (Auto) 0.7 % 02/09/22 00:08 Neut % (Auto) 85.3 % 02/09/22 00:08 Lymph % (Auto) 5.9 % 02/09/22 00:08 [place] % (Auto) 7.9 % 02/09/22 00:08 Eos % (Auto) 0.1 % 02/09/22 00:08 Baso % (Auto) 0.1 % 02/09/22 00:08 Neut # (Auto) 12.07 K/uL (1.4-6.5) H 02/09/22 00:08 Lymph # (Auto) 0.83 K/uL (1.2-3.4) L 02/09/22 00:08 [place] # (Auto) 1.12 K/uL (0.11-0.59) H 02/09/22 00:08 Eos # (Auto) 0.01 K/uL (0-0.5) 02/09/22 00:08 Baso # (Auto) 0.01 K/uL (0-0.2) 02/09/22 00:08 Immature Gran # (Auto) 0.10 K/uL (0.00-0.02) H 02/09/22 00:08 Absolute Nucleated RBC 0.03 K/uL (0-0) H 02/09/22 00:08 Nucleated RBC % (auto) 0.2 % 02/09/22 00:08 PT 12.2 Seconds (9.0-12.0) H 02/09/22 01:11 INR 1.2 (0.9-1.1) H 02/09/22 01:11 APTT 23.1 Seconds (21.0-31.0) 02/09/22 01:11 PTT Ratio 0.8 02/09/22 01:11 Sodium 137 mmol/L (136-145) 02/09/22 01:11 Potassium 4.7 mmol/L (3.5-5.1) 02/09/22 01:11 Chloride 105 mmol/L (98-107) 02/09/22 00:08 Carbon Dioxide 18 mmol/L (21-32) L 02/09/22 00:08 Anion Gap TNP 02/09/22 00:08 BUN 67 mg/dl (6-23) H 02/09/22 00:08 Creatinine 1.74 mg/dl (0.6-1.2) H 02/09/22 00:08 Est Cr Clr Drug Dosing Not Reportable 02/09/22 00:08 Est GFR ( Amer) 30.0 ml/min 02/09/22 00:08 Est GFR (Non-Af Amer) 25.9 ml/min 02/09/22 00:08 BUN/Creatinine Ratio 38.5 (10-20) H 02/09/22 00:08 Glucose 182 mg/dl (70-99(Fasting)) H 02/09/22 00:08 Lactate 1.6 mmol/L (0.4-2.0) 02/09/22 00:08 Calcium 9.5 mg/dl (8.5-10.1) 02/09/22 00:08 Magnesium 2.2 mg/dl (1.7-2.4) 02/09/22 01:11 Total Bilirubin 0.9 mg/dl (0.2-1.0) 02/09/22 00:08 AST 19 U/L (13-39) 02/09/22 01:11 ALT 35 U/L (7-52) 02/09/22 00:08 Alkaline Phosphatase 82 U/L (34-104) 02/09/22 00:08 Total Protein 8.2 gm/dl (6.0-8.3) 02/09/22 00:08 Albumin 4.2 gm/dl (3.4-5.0) 02/09/22 00:08 Globulin 4.0 gm/dl (2.5-4.0) 02/09/22 00:08 Albumin/Globulin Ratio 1.1 (0.9-2) 02/09/22 00:08 Code Status & VTE Plan Code Status Full code VTE Prophylaxis Plan VTE Prophylaxis will be ordered: Yes PG Care Time/CCT Total # of Minutes Spent Total Time Spent with Patient: Total time spent is greater than 50% in coordination of care (as documented) at patient's floor/unit and/or counseling patient: Coding Level of Care Code INT OBSERVATION CARE 70M LVL 3 Diagnoses Adult failure to thrive R62.7 Acute UTI (urinary tract infection) N39.0 COVID-19 U07.1 Gastritis K29.70 Acute exacerbation of chronic obstructive pulmonary disease J44.1 Chronic hypoxemic respiratory failure J96.11 Atrial fibrillation I48.91 Chronic kidney disease, stage IV (severe) N18.4 CAD (coronary artery disease) I25.10 Hyperlipidemia E78.5 Hypertension I10 Depression F32.9 Diabetes mellitus, type 2 E11.9 GERD (gastroesophageal reflux disease) K21.9
[2022-02-09] MEDS ORDERED: GLUCAGON FOR INJ 1 MG VIAL SQ PRN (05:03)
[2022-02-09] MEDS ORDERED: GLUCOSE 40% GEL 15 GM TUBE PO PRN (05:03)
[2022-02-09] MEDS ORDERED: GLUCOSE 10 TAB/TUBE PO PRN (05:03)
[2022-02-09] MEDS ORDERED: CARBOHYDRATES FOR HYPOGLYCEMIA PO PRN (05:03)
[2022-02-09] MEDS ORDERED: ACETAMINOPHEN 325 MG TAB PO PRN (05:03)
[2022-02-09] MEDS ORDERED: DEXTROSE 50% 50 ML SYRINGE IV PRN (05:03)
[2022-02-09] MEDS ORDERED: ALBUTEROL HFA 8 GM INHALER INH PRN (05:03)
[2022-02-09] MEDS: carvediloL 3.125 MG TAB PO SCH ×2 (06:20→20:59)
--- NOTE | 2022-02-09 07:00 | XRay Report ---
XR chest 1V portable HISTORY: 86 years-old Female SEPSIS acute sepsis COMPARISON: Chest radiograph 02/04/2022 TECHNIQUE: Portable AP view of the chest FINDINGS: The cardiac silhouette is enlarged. Atherosclerosis of the aorta. Calcifications of the mitral annulu s. No pneumothorax, large pleural effusion or overt pulmonary edema. Mild subsegmental bibasilar dens ities suggest atelectasis. Degenerative changes of the shoulders and spine. IMPRESSION: Cardiomegaly without acute process. ACT 112: Negative or not required by law. The above report was generated using voice recognition software. It may contain grammatical, syntax o r spelling errors. Electronically signed by: Fede Benitez M.D. 02/09/2022 6:59 AM
[2022-02-09 07:07] LABS: Appearance Urine Clear (Clear); Bacteria Urine Automated Negative (Negative); Bilirubin Urine Negative (Negative); Blood Urine Negative (Negative); Cast Urine Automated 0 /lpf (0-5); Color Urine Yellow; Glucose Urine UA Negative (Negative); Ketones Urine Negative (Negative); Leukocyte Esterase Urine Negative (Negative); Nitrite Urine Negative (Negative); Protein Urine 2+ (Negative); RBC Urine Automated 0-4 /hpf (0-4); Specific Gravity Urine 1.013 (1.000-1.030); Urobilinogen Urine Negative (Negative); WBC Urine Automated 0 /hpf (0-5); pH Urine 5.5 (4.5-7.5)
[2022-02-09] MEDS ORDERED: carvediloL 3.125 MG TAB PO SCH (09:00)
[2022-02-09] MEDS ORDERED: NON-FORMULARY MEDICATION (Glucosamine-Chondroitin [Osteo Bi-Flex] 250-200 mg Tablet) PO SCH (09:00)
--- NOTE | 2022-02-09 09:04 | Electrocardiogram Report ---
Test Reason : Blood Pressure : / mmHG Vent. 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
[2022-02-09] MEDS: INSULIN ASPART PER UNIT SC SCH ×4 (09:30→21:01)
[2022-02-09] MEDS: UMECLIDINIUM BROMIDE 62.5MCG/BLISTER 7 PUFFS/INHALER INH SCH (09:40)
[2022-02-09] MEDS: FLUTICASONE/VILANTEROL 200/25MCG 14 PUFFS/INHALER INH SCH (09:41)
[2022-02-09] MEDS: allopurinoL 100 MG TAB PO SCH ×2 (09:42→09:51)
[2022-02-09] MEDS: GABAPENTIN 600 MG TAB PO SCH ×4 (09:42→20:59)
[2022-02-09] MEDS: dexAMETHasone 1 MG TAB PO SCH ×2 (09:42→09:51)
[2022-02-09] MEDS: APIXABAN 2.5 MG TAB PO SCH ×3 (09:42→20:59)
[2022-02-09] MEDS: CALCIUM CARBONATE 1250MG TAB PO SCH ×2 (09:42→09:51)
[2022-02-09] MEDS: PANTOprazole 40 MG TAB PO SCH ×3 (09:42→20:59)
[2022-02-09] MEDS: FERROUS SULFATE 325 MG TAB PO SCH ×2 (09:42→09:51)
[2022-02-09] MEDS: FAMOTIDINE 20 MG TAB PO SCH (20:59)
[2022-02-09] MEDS: SIMVASTATIN 40 MG TAB PO SCH (20:59)
[2022-02-09] MEDS: INSULIN GLARGINE SOLOSTAR 100 UNITS/ML 3 ML PEN SQ SCH (21:04)
[2022-02-09] MEDS: TRAVOPROST Z 0.004% OPH SOLN 2.5 ML BTL OPB SCH (21:06)
[2022-02-10 07:45] LABS: Basophils # (auto) 0.01 K/uL (0-0.2); Basophils % (auto) 0.1 %; Eosinophils # (auto) 0.06 K/uL (0-0.5); Eosinophils % (auto) 0.5 %; Hematocrit (blood only) 36.3 % (37-47); Hemoglobin 12.1 g/dL (12.0-16.0); Immature Granulocytes # (auto) 0.09 K/uL (0.00-0.02); Immature Granulocytes % (auto) 0.7 %; Lymphocytes % (auto) 8.3 %; Mean Corpuscular Hemoglobin 31.6 pg (25-34); Mean Corpuscular Hgb Conc 33.3 g/dL (32-36); Mean Corpuscular Volume 94.8 fL (80-100); Mean Platelet Volume 11.5 fL (7.4-10.4); Monocytes # (auto) 0.95 K/uL (0.11-0.59); Monocytes % (auto) 7.8 %; Neutrophils # (auto) 10.01 K/uL (1.4-6.5); Neutrophils % (auto) 82.6 %; Platelet Count 223 K/uL (130-400); RDW Coefficient of Variation 14.9 % (11.5-14.5); Red Blood Count 3.83 M/uL (4.2-5.4); White Blood Count 12.12 K/uL (4.8-10.8)
[2022-02-10 08:09] LABS: Albumin Level 3.5 gm/dl (3.4-5.0); BUN Creatinine Ratio 35.1 (10-20); Creatinine Clr Calc Pharmacy 20.8 ml/min; Est GFR (African American) 35.6 ml/min; Est GFR (Non-African American) 30.8 ml/min; Phosphorus 4.3 mg/dl (2.5-4.9); Potassium 4.2 mmol/L (3.5-5.1)
[2022-02-10] MEDS: INSULIN ASPART PER UNIT SC SCH ×4 (09:54→20:21)
[2022-02-10] MEDS: allopurinoL 100 MG TAB PO SCH (09:55)
[2022-02-10] MEDS: dexAMETHasone 1 MG TAB PO SCH (09:56)
[2022-02-10] MEDS: carvediloL 3.125 MG TAB PO SCH ×2 (09:56→20:28)
[2022-02-10] MEDS: APIXABAN 2.5 MG TAB PO SCH ×2 (09:56→20:26)
[2022-02-10] MEDS: FERROUS SULFATE 325 MG TAB PO SCH (09:56)
[2022-02-10] MEDS: GABAPENTIN 600 MG TAB PO SCH ×3 (09:56→20:22)
[2022-02-10] MEDS: CALCIUM CARBONATE 1250MG TAB PO SCH (09:56)
[2022-02-10] MEDS: UMECLIDINIUM BROMIDE 62.5MCG/BLISTER 7 PUFFS/INHALER INH SCH (09:56)
[2022-02-10] MEDS: FLUTICASONE/VILANTEROL 200/25MCG 14 PUFFS/INHALER INH SCH (09:56)
[2022-02-10] MEDS: PANTOprazole 40 MG TAB PO SCH ×2 (09:56→20:27)
--- NOTE | 2022-02-10 13:02 | Hospitalist Progress Note ---
Date of Service February 10, 2022 Assessment & Plan (1) Adult failure to thrive: Plan: - Generalized weakness and debility in setting of recent + COVID diagnosis - Has known depression which does not appear is treated which is likely contributing - PT/OT eval - Will require rehab upon d/c, family and patient agreeable - Case management consulted to assist in discharge planning (2) Chronic hypoxemic respiratory failure: Plan: Chronic Respiratory failure d/t COPD requiring 2L of O2 at HS and with exertion - DuoNebs every 2 hours as needed - Patient's pulse ox is 98% on room air - Continue her usual inhalers (3) Acute UTI (urinary tract infection): Plan: - Patient was to take cefdinir on discharge, however, did not take it - Placed on levofloxacin 500 mg IV daily for E. coli UTI which is pansensitive by admitting team - Levaquin has been discontinued and narrowed to a single dose of Rocephin due on 02/11 which will complete a 7 day course (4) COVID-19: Plan: - Put back on Dexamethasone by admitting team for ? generalized fatigue from COVID - There is no literature that supports using Decadron in absence of increasing O2 requirements for chronic respiratory failure patients in setting of + COVID - Decadron has been discontinued (5) Gastritis: Plan: - Continue Protonix and Pepcid (6) Atrial fibrillation: Plan: Atrial fibrillation/CAD/hypertension - Stable, continue apixaban, carvedilol, zocor (7) Chronic kidney disease, stage IV (severe): Plan: - Stable and within her baseline (8) Hypertension: Plan: - BP slightly up, may need to uptitrate Coreg (9) Diabetes mellitus, type 2: Plan: - Continue acchuchecks AC and HS - Continue sliding scale insulin + Lantus - Blood sugars acceptable Plan: She is medically stable awaiting placement to rehab facility PT/OT eval ordered - PT recommending stay in rehab d/t unsteady gait, weakness, and tachycardic with minimal exertion Case management following Likely will have to wait until she has completed 10 day quarantine for her positive covid diagnosis which was made on 02/04, thus 02/14 - will make a full admit Plan has been d/w Dr. Frausto Admission and Anticipated Discharge Date Admission Date: February 09, 2022 Subjective Patient seen on daily rounds this morning. She is resting in bed, offers no new complaints at this time. Denies chest pain or dyspnea. She is medically stable awaiting rehab placement. Review of Systems Review of Systems: All systems reviewed and are unremarkable except as noted in HPI and below. Denies fever, chills, headache, nasal congestion, sore throat, cough, chest pain, shortness of breath, palpitations, orthopnea, PND, abdominal pain, n/v/d, constipation, dysuria, hematuria, frequency, back pain, joint pain or swelling, easy bruising or bleeding, skin lesions or rashes. Physical Exam Physical Exam: GENERAL: 86 yo Well-developed, well-nourished elderly WF. NAD. LUNGS: Clear to auscultation bilaterally. No W/R/R. CARDIOVASCULAR: Normal S1 S2 ABDOMEN: Soft, non-tender and non-distended. BS normoactive x 4 quad. EXTREMITIES: No edema. Non-tender. Peripheral pulses +2/4. NEUROLOGIC: A&O x3. Nonfocal PSYCHIATRIC: Cooperative. Flat affect. SKIN: Warm, dry, intact. No rashes or lesions. Results & Data Results & Data ([facility]) Vital Signs (Past 12 Hours) Vital Signs Temp Pulse Resp BP Pulse Ox 02/10/22 08:52 36.6 C 77 18 158/88 H 97 Laboratory Results 02/10/22 06:42 02/10/22 06:42 PG Care Time/CCT Total # of Minutes Spent Total Time Spent with Patient: Total time spent is greater than 50% in coordination of care (as documented) at patient's floor/unit and/or counseling patient: Coding Level of Care Code 93514 Subseq Hosp Care Lvl 2 Diagnoses Chronic hypoxemic respiratory failure J96.11 Adult failure to thrive R62.7 Acute UTI (urinary tract infection) N39.0 COVID-19 U07.1 Gastritis K29.70 Atrial fibrillation I48.91 Chronic kidney disease, stage IV (severe) N18.4 Hypertension I10 Diabetes mellitus, type 2 E11.9
[2022-02-10] MEDS: INSULIN GLARGINE SOLOSTAR 100 UNITS/ML 3 ML PEN SQ SCH (20:21)
[2022-02-10] MEDS: TRAVOPROST Z 0.004% OPH SOLN 2.5 ML BTL OPB SCH (20:22)
[2022-02-10] MEDS: FAMOTIDINE 20 MG TAB PO SCH (20:27)
[2022-02-10] MEDS: SIMVASTATIN 40 MG TAB PO SCH (20:27)
[2022-02-11] MEDS ORDERED: levoFLOXacin/D5W 250 MG/50 ML BAG IV SCH (04:00)
[2022-02-11] MEDS ORDERED: cefTRIAXone SODIUM 1,000 MG in DEXTROSE 5% 50 ML IV ONE (05:00)
[2022-02-11 07:06] LABS: Hematocrit (blood only) 35.7 % (37-47); Hemoglobin 12.1 g/dL (12.0-16.0); Immature Granulocytes # (auto) 0.06 K/uL (0.00-0.02); Immature Granulocytes % (auto) 0.5 %; Lymphocytes # (auto) 0.64 K/uL (1.2-3.4); Lymphocytes % (auto) 5.8 %; Mean Corpuscular Hemoglobin 32.3 pg (25-34); Mean Corpuscular Hgb Conc 33.9 g/dL (32-36); Mean Corpuscular Volume 95.2 fL (80-100); Mean Platelet Volume 11.6 fL (7.4-10.4); Monocytes # (auto) 0.32 K/uL (0.11-0.59); Monocytes % (auto) 2.9 %; Neutrophils # (auto) 9.94 K/uL (1.4-6.5); Neutrophils % (auto) 90.8 %; Platelet Count 203 K/uL (130-400); RDW Coefficient of Variation 14.6 % (11.5-14.5); RDW Standard Deviation 50.3 fL (36.4-46.3); Red Blood Count 3.75 M/uL (4.2-5.4); White Blood Count 10.96 K/uL (4.8-10.8)
[2022-02-11 07:33] LABS: Est GFR (African American) 31.8 ml/min; Potassium 4.6 mmol/L (3.5-5.1)
[2022-02-11 07:34] LABS: Albumin Level 3.4 gm/dl (3.4-5.0); BUN Creatinine Ratio 34.3 (10-20); Calcium 8.8 mg/dl (8.5-10.1); Creatinine Clr Calc Pharmacy 18.9 ml/min; Est GFR (Non-African American) 27.4 ml/min; Phosphorus 4.7 mg/dl (2.5-4.9)
[2022-02-11] MEDS: INSULIN ASPART PER UNIT SC SCH ×4 (09:45→21:30)
[2022-02-11] MEDS: INSULIN GLARGINE SOLOSTAR 100 UNITS/ML 3 ML PEN SQ SCH ×2 (09:47→22:50)
[2022-02-11] MEDS: GABAPENTIN 600 MG TAB PO SCH ×3 (09:56→21:31)
[2022-02-11] MEDS: FERROUS SULFATE 325 MG TAB PO SCH (09:56)
[2022-02-11] MEDS: carvediloL 3.125 MG TAB PO SCH ×2 (09:56→21:30)
[2022-02-11] MEDS: allopurinoL 100 MG TAB PO SCH (09:56)
[2022-02-11] MEDS: CALCIUM CARBONATE 1250MG TAB PO SCH (09:56)
[2022-02-11] MEDS: FLUTICASONE/VILANTEROL 200/25MCG 14 PUFFS/INHALER INH SCH (09:57)
[2022-02-11] MEDS: PANTOprazole 40 MG TAB PO SCH ×2 (09:57→21:31)
[2022-02-11] MEDS: UMECLIDINIUM BROMIDE 62.5MCG/BLISTER 7 PUFFS/INHALER INH SCH (09:57)
[2022-02-11] MEDS: APIXABAN 2.5 MG TAB PO SCH ×2 (09:57→21:31)
[2022-02-11] MEDS ORDERED: MAGNESIUM HYDROXIDE SUSP 30 ML UDC PO PRN (12:05)
--- NOTE | 2022-02-11 12:12 | Hospitalist Progress Note ---
Date of Service February 11, 2022 Assessment & Plan (1) Adult failure to thrive: Plan: - Generalized weakness and debility in setting of recent + COVID diagnosis - Has known depression which does not appear is treated which is likely contributing - PT/OT eval - Will require rehab upon d/c, family and patient agreeable - Case management consulted to assist in discharge planning-planning for SNF with rehab per therapy recommendations - Add MOM to her regimen to induce BM for constipation, she declined suppository (2) Chronic hypoxemic respiratory failure: Plan: Chronic Respiratory failure d/t COPD requiring 2L of O2 at HS and with exertion - DuoNebs every 2 hours as needed - Patient's pulse ox is 98% on room air - Continue her usual inhalers (3) Acute UTI (urinary tract infection): Plan: - Patient was to take cefdinir on discharge, however, did not take it - Placed on levofloxacin 500 mg IV daily for E. coli UTI which is pansensitive by admitting team - Levaquin has been discontinued and narrowed to a single dose of Rocephin due on 02/11 which will complete a 7 day course (4) COVID-19: Plan: - Put back on Dexamethasone by admitting team for ? generalized fatigue from COVID - There is no literature that supports using Decadron in absence of increasing O2 requirements for chronic respiratory failure patients in setting of + COVID - Decadron has been discontinued (5) Gastritis: Plan: - Continue Protonix and Pepcid (6) Atrial fibrillation: Plan: Atrial fibrillation/CAD/hypertension - Stable, continue apixaban, carvedilol, zocor (7) Chronic kidney disease, stage IV (severe): Plan: - Stable and within her baseline (8) Hypertension: Plan: - BP acceptably controlled today - Continue Coreg (9) Diabetes mellitus, type 2: Plan: - Continue acchuchecks AC and HS - Continue sliding scale insulin + Lantus - Blood sugars acceptable Plan: She is medically stable awaiting placement to rehab facility PT/OT eval ordered - PT recommending stay in rehab d/t unsteady gait, weakness, and tachycardic with minimal exertion Case management on board Likely will have to wait until she has completed 10 day quarantine for her positive covid diagnosis which was made on 02/04, thus 7/2. No SNFs anticipate rehab bed until after the holiday. Plan has been d/w Dr. Pickett. Admission and Anticipated Discharge Date Admission Date: February 10, 2022 Subjective Patient seen on daily rounds this morning. She mentioned that she has not had a BM since admission but is otherwise doing fine. Has no complaints of cp or dyspnea. No cough, fever, chills, n/v. She is medically stable awaiting rehab placement. Review of Systems Review of Systems: All systems reviewed and are unremarkable except as noted in HPI and below. Denies fever, chills, headache, nasal congestion, sore throat, cough, chest pain, shortness of breath, palpitations, orthopnea, PND, abdominal pain, n/v/d, dysuria, hematuria, frequency, back pain, joint pain or swelling, easy bruising or bleeding, skin lesions or rashes. Physical Exam Physical Exam: GENERAL: 86 yo Well-developed, well-nourished elderly WF. NAD. LUNGS: Clear to auscultation bilaterally. No W/R/R. CARDIOVASCULAR: Normal S1 S2 ABDOMEN: Soft, non-tender and non-distended. BS normoactive x 4 quad. EXTREMITIES: No edema. Non-tender. Peripheral pulses +2/4. NEUROLOGIC: A&O x3. Nonfocal PSYCHIATRIC: Cooperative. Flat affect. SKIN: Warm, dry, intact. No rashes or lesions. Results & Data Results & Data ([facility]) Vital Signs (Past 12 Hours) Vital Signs Temp Pulse Resp BP Pulse Ox 02/11/22 08:53 36.6 C 64 16 119/74 98 PG Care Time/CCT Total # of Minutes Spent Total Time Spent with Patient: Total time spent is greater than 50% in coordination of care (as documented) at patient's floor/unit and/or counseling patient: Coding Level of Care Code 49602 Subseq Hosp Care Lvl 1 Diagnoses Adult failure to thrive R62.7 Chronic hypoxemic respiratory failure J96.11 Acute UTI (urinary tract infection) N39.0 COVID-19 U07.1 Gastritis K29.70 Atrial fibrillation I48.91 Chronic kidney disease, stage IV (severe) N18.4 Hypertension I10 Diabetes mellitus, type 2 E11.9
[2022-02-11] MEDS ORDERED: INSULIN ASPART PER UNIT SC STA (13:20)
[2022-02-11] MEDS ORDERED: ALUMINUM/MAGNESIUM SUSP 30 ML UDC PO PRN (13:59)
[2022-02-11] MEDS: SIMVASTATIN 40 MG TAB PO SCH (21:30)
[2022-02-11] MEDS: FAMOTIDINE 20 MG TAB PO SCH (21:31)
[2022-02-11] MEDS: TRAVOPROST Z 0.004% OPH SOLN 2.5 ML BTL OPB SCH (21:31)
--- NOTE | 2022-02-12 08:25 | Hospitalist Progress Note ---
Date of Service February 12, 2022 Assessment & Plan (1) Adult failure to thrive: Plan: - Generalized weakness and debility in setting of recent + COVID diagnosis which could be contributing to overall fatigue as well as UTI which recently completed abx course while inpatient - Has known depression which does not appear is treated which is likely contributing - PT/OT eval rec'd rehab, however patient stating doing much better and nursing with patient fairly independent, ?home with therapy -- discussed with CM and req repeat therapy dayami. Was told in ER patient needing rehab however if making improvements would strongly consider home with home therapy and could consider discharge over the weekend rather than remaining inpatient until able to be placed CM alerted and following of note, granddaughter Genevieve CM in ER -- will also see about assistance from family at home Miralax added, BID, to assist with BM. Small BM this am and will continue Did have slight headache/heartburn 02/11, resolved with tylenol and MOM x 1 -- monitor for any repeat symptoms (2) Chronic hypoxemic respiratory failure: Plan: Chronic Respiratory failure d/t COPD requiring 2L of O2 at HS and with exertion - DuoNebs every 2 hours as needed - Continue her usual inhalers - Patient's pulse ox is 98% on room air and has not required any with ambulation --> could consider repeat ambulatory pulse ox to see if continues to require O2 at baseline (3) Acute UTI (urinary tract infection): Plan: - Patient was to take cefdinir on discharge, however, did not take it - Placed on levofloxacin 500 mg IV daily for E. coli UTI which is pansensitive by admitting team - Levaquin has been discontinued and narrowed to a single dose of Rocephin due on 02/11 which completed a 7 day course Given IVF @ 70cc/hr x 1 L for today for some dehydration on exam/labs, monitor labs in am (4) COVID-19: Plan: - Put back on Dexamethasone by admitting team for ? generalized fatigue from COVID - There is no literature that supports using Decadron in absence of increasing O2 requirements for chronic respiratory failure patients in setting of + COVID - Decadron has been discontinued and has not required O2 (5) Gastritis: Plan: - Continue Protonix and Pepcid (6) Atrial fibrillation: Plan: Atrial fibrillation/CAD/hypertension - Stable, continue apixaban, carvedilol, zocor (7) Chronic kidney disease, stage IV (severe): Plan: - Cr elevated to 2.01 with BUN 72 Does take lasix QOD at home (had been placed on hold on admission) but appeared slightly dehydrated on exam and given IVF, encouraging PO Repeat labs in AM (8) Hypertension: Plan: - BP acceptably controlled today - Continue Coreg (9) Diabetes mellitus, type 2: Plan: - Continue acchuchecks AC and HS - Continue sliding scale insulin + Lantus - Blood sugars acceptable Plan: She is medically stable awaiting placement to rehab facility PT/OT eval ordered - PT recommending stay in rehab d/t unsteady gait, weakness, and tachycardic with minimal exertion Case management on board Likely will have to wait until she has completed 10 day quarantine for her positive covid diagnosis which was made on 02/04, thus 02/14. No SNFs anticipate rehab bed until after the holiday. HOWEVER IF REPEAT THERAPY EVALS IMPROVED, POSSIBLE CONSIDER HOME WITH HOME THERAPY OVER THE WEEKEND Admission and Anticipated Discharge Date Admission Date: February 10, 2022 Subjective patient evaluated this afternoon. miralax added to assist with BM. Small BM noted but still working on bowel movement. Eating lunch without issue. She notes she did have some reflux as well as milid headache last night. Given tylenol with resolution. Discussed mild dehydration and ordered 1L IVF and encouraged to push PO fluids. She states therapy recommending rehab however she has been ambulating in room with walker and cane and feels she has been doing well. States PT said they would be by yesterday but she didn't see anyone. Discussed per her wishes if improving with therapy possibly setting up home therapy. Patient would be thrilled if this could be arranged. Review of Systems Review of Systems: All systems reviewed & are unremarkable except as noted in HPI & below Physical Exam Physical Exam: GENERAL: WN/WD elderly female sitting up at side of bed eating lunch, NAD HEENT: normocephalic, atraumatic, pupils equal and reactive, slightly dry mm, trachea midline without deviation Resp: CTAB, no w/c/r, 98% on RA CV: RRR, no calf edema/tenderness, cap refill wnl GI:+BS, soft, nontender : no adan MSK/Neuro: moves all extremities, no focal deficits Psych: AOX3, pleasant and cooperative Skin: warm ,dry, well perfused Results & Data Results & Data ([facility]) Vital Signs (Past 12 Hours) Vital Signs Temp Pulse Resp BP Pulse Ox 02/11/22 21:15 34.8 C L 80 16 99/53 L 98 Laboratory Results 02/12/22 02/12/22 02/12/22 Range/Units 12:26 08:56 08:56 WBC (4.8-10.8) K/uL RBC (4.2-5.4) M/uL Hgb (12.0-16.0) g/dL Hct (37-47) % MCV (80-100) fL MCH (25-34) pg MCHC (32-36) g/dL RDW Std Deviation (36.4-46.3) fL RDW Coeff of Terri (11.5-14.5) % Plt Count (130-400) K/uL MPV (7.4-10.4) fL Sodium (136-145) mmol/L Potassium (3.5-5.1) mmol/L Chloride (98-107) mmol/L Carbon Dioxide (21-32) mmol/L Anion Gap (3-11) BUN (6-23) mg/dl Creatinine (0.6-1.2) mg/dl Est Cr Clr Drug Dosing ml/min Est GFR ( Amer) ml/min Est GFR (Non-Af Amer) ml/min BUN/Creatinine Ratio (10-20) Glucose (70-99(Fasting)) mg/dl POC Glucose 167 H (70-99) mg/dl Calcium (8.5-10.1) mg/dl Magnesium (1.7-2.4) mg/dl Total Bilirubin (0.2-1.0) mg/dl AST (13-39) U/L ALT (7-52) U/L Alkaline Phosphatase (34-104) U/L Total Protein (6.0-8.3) gm/dl Albumin (3.4-5.0) gm/dl Globulin (2.5-4.0) gm/dl Albumin/Globulin Ratio (0.9-2) Vitamin B12 1216 H (180-914) pg/ml TSH 1.534 (0.300-4.500) uIu/ml 02/12/22 02/12/22 02/12/22 Range/Units 08:56 08:56 08:32 WBC 16.11 H (4.8-10.8) K/uL RBC 3.74 L (4.2-5.4) M/uL Hgb 12.1 (12.0-16.0) g/dL Hct 35.5 L (37-47) % MCV 94.9 (80-100) fL MCH 32.4 (25-34) pg MCHC 34.1 (32-36) g/dL RDW Std Deviation 50.3 H (36.4-46.3) fL RDW Coeff of Terri 14.9 H (11.5-14.5) % Plt Count 213 (130-400) K/uL MPV 11.8 H (7.4-10.4) fL Sodium 133 L (136-145) mmol/L Potassium 4.5 (3.5-5.1) mmol/L Chloride 104 (98-107) mmol/L Carbon Dioxide 20 L (21-32) mmol/L Anion Gap 9 (3-11) BUN 72 H (6-23) mg/dl Creatinine 2.01 H D (0.6-1.2) mg/dl Est Cr Clr Drug Dosing 15.6 ml/min Est GFR ( Amer) 25.2 ml/min Est GFR (Non-Af Amer) 21.8 ml/min BUN/Creatinine Ratio 35.8 H (10-20) Glucose 163 H (70-99(Fasting)) mg/dl POC Glucose 147 H (70-99) mg/dl Calcium 9.1 (8.5-10.1) mg/dl Magnesium 2.2 (1.7-2.4) mg/dl Total Bilirubin 0.6 (0.2-1.0) mg/dl AST 43 H (13-39) U/L ALT 60 H (7-52) U/L Alkaline Phosphatase 74 (34-104) U/L Total Protein 6.8 (6.0-8.3) gm/dl Albumin 3.5 (3.4-5.0) gm/dl Globulin 3.3 (2.5-4.0) gm/dl Albumin/Globulin Ratio 1.1 (0.9-2) Vitamin B12 (180-914) pg/ml TSH (0.300-4.500) uIu/ml 02/11/22 02/11/22 Range/Units 21:19 17:42 WBC (4.8-10.8) K/uL RBC (4.2-5.4) M/uL Hgb (12.0-16.0) g/dL Hct (37-47) % MCV (80-100) fL MCH (25-34) pg MCHC (32-36) g/dL RDW Std Deviation (36.4-46.3) fL RDW Coeff of Terri (11.5-14.5) % Plt Count (130-400) K/uL MPV (7.4-10.4) fL Sodium (136-145) mmol/L Potassium (3.5-5.1) mmol/L Chloride (98-107) mmol/L Carbon Dioxide (21-32) mmol/L Anion Gap (3-11) BUN (6-23) mg/dl Creatinine (0.6-1.2) mg/dl Est Cr Clr Drug Dosing ml/min Est GFR ( Amer) ml/min Est GFR (Non-Af Amer) ml/min BUN/Creatinine Ratio (10-20) Glucose (70-99(Fasting)) mg/dl POC Glucose 106 H 154 H (70-99) mg/dl Calcium (8.5-10.1) mg/dl Magnesium (1.7-2.4) mg/dl Total Bilirubin (0.2-1.0) mg/dl AST (13-39) U/L ALT (7-52) U/L Alkaline Phosphatase (34-104) U/L Total Protein (6.0-8.3) gm/dl Albumin (3.4-5.0) gm/dl Globulin (2.5-4.0) gm/dl Albumin/Globulin Ratio (0.9-2) Vitamin B12 (180-914) pg/ml TSH (0.300-4.500) uIu/ml PG Care Time/CCT Total # of Minutes Spent Total Time Spent with Patient: Total time spent is greater than 50% in coordination of care (as documented) at patient's floor/unit and/or counseling patient: Coding Level of Care Code 31116 Subseq Hosp Care Lvl 2 Diagnoses Adult failure to thrive R62.7 Chronic hypoxemic respiratory failure J96.11 Acute UTI (urinary tract infection) N39.0 COVID-19 U07.1 Gastritis K29.70 Atrial fibrillation I48.91 Chronic kidney disease, stage IV (severe) N18.4 Hypertension I10 Diabetes mellitus, type 2 E11.9
[2022-02-12] MEDS: GABAPENTIN 600 MG TAB PO SCH ×3 (08:34→21:47)
[2022-02-12] MEDS: UMECLIDINIUM BROMIDE 62.5MCG/BLISTER 7 PUFFS/INHALER INH SCH (08:34)
[2022-02-12] MEDS: FLUTICASONE/VILANTEROL 200/25MCG 14 PUFFS/INHALER INH SCH (08:34)
[2022-02-12] MEDS: carvediloL 3.125 MG TAB PO SCH ×2 (08:35→21:47)
[2022-02-12 09:56] LABS: Hematocrit (blood only) 35.5 % (37-47); Hemoglobin 12.1 g/dL (12.0-16.0); Mean Corpuscular Hemoglobin 32.4 pg (25-34); Mean Corpuscular Hgb Conc 34.1 g/dL (32-36); Mean Corpuscular Volume 94.9 fL (80-100); Mean Platelet Volume 11.8 fL (7.4-10.4); Platelet Count 213 K/uL (130-400); RDW Coefficient of Variation 14.9 % (11.5-14.5); RDW Standard Deviation 50.3 fL (36.4-46.3); Red Blood Count 3.74 M/uL (4.2-5.4); White Blood Count 16.11 K/uL (4.8-10.8)
[2022-02-12] MEDS: POLYETHYLENE (MIRALAX) 17 GM PACK PO SCH ×2 (10:01→21:47)
[2022-02-12] MEDS: allopurinoL 100 MG TAB PO SCH (10:01)
[2022-02-12] MEDS: PANTOprazole 40 MG TAB PO SCH ×2 (10:02→21:47)
[2022-02-12] MEDS: APIXABAN 2.5 MG TAB PO SCH ×2 (10:02→21:47)
[2022-02-12] MEDS: FERROUS SULFATE 325 MG TAB PO SCH (10:02)
[2022-02-12] MEDS: CALCIUM CARBONATE 1250MG TAB PO SCH (10:05)
[2022-02-12] MEDS: INSULIN ASPART PER UNIT SC SCH ×4 (10:16→21:47)
[2022-02-12 10:17] LABS: Albumin Globulin Ratio 1.1 (0.9-2); Albumin Level 3.5 gm/dl (3.4-5.0); BUN Creatinine Ratio 35.8 (10-20); Bilirubin,Total 0.6 mg/dl (0.2-1.0); Calcium 9.1 mg/dl (8.5-10.1); Creatinine Clr Calc Pharmacy 15.6 ml/min; Est GFR (African American) 25.2 ml/min; Est GFR (Non-African American) 21.8 ml/min; Globulin 3.3 gm/dl (2.5-4.0); Magnesium 2.2 mg/dl (1.7-2.4); Potassium 4.5 mmol/L (3.5-5.1); Total Protein 6.8 gm/dl (6.0-8.3)
[2022-02-12] MEDS ORDERED: LACTATED RINGER'S 1,000 ML IV SCH (11:00)
[2022-02-12 17:50] LABS: Calcium 8.8 mg/dl (8.5-10.1); Creatinine Clr Calc Pharmacy 16.8 ml/min; Est GFR (African American) 27.5 ml/min; Est GFR (Non-African American) 23.7 ml/min; Potassium 4.4 mmol/L (3.5-5.1)
[2022-02-12] MEDS ORDERED: Nursing to Pharmacy Communication SCH (18:15)
[2022-02-12] MEDS ORDERED: SODIUM CHLORIDE 0.9% 500 ML IV ONE (18:15)
[2022-02-12] MEDS: SIMVASTATIN 40 MG TAB PO SCH (21:47)
[2022-02-12] MEDS: FAMOTIDINE 20 MG TAB PO SCH (21:47)
[2022-02-12] MEDS: TRAVOPROST Z 0.004% OPH SOLN 2.5 ML BTL OPB SCH (21:50)
[2022-02-13] MEDS: INSULIN GLARGINE SOLOSTAR 100 UNITS/ML 3 ML PEN SQ SCH ×2 (00:14→23:30)
--- NOTE | 2022-02-13 07:52 | Hospitalist Progress Note ---
Date of Service February 13, 2022 Assessment & Plan (1) Adult failure to thrive: Plan: - Generalized weakness and debility in setting of recent + COVID diagnosis which could be contributing to overall fatigue as well as UTI which recently completed abx course while inpatient - Has known depression which does not appear is treated which is likely contributing - PT/OT eval rec'd rehab, however patient stating doing much better and nursing with patient fairly independent, ?home with therapy -- discussed with CM and req repeat therapy dayami. Was told in ER patient needing rehab however if making improvements would strongly consider home with home therapy and could consider discharge over the weekend rather than remaining inpatient until able to be placed CM alerted and following of note, granddaughter Genevieve CM in ER -- will also see about assistance from family at home Miralax added, BID --> large BM 02/12 continue prn Did have slight headache/heartburn 02/11, resolved with tylenol and MOM x 1 -- monitor for any repeat symptoms (2) Chronic hypoxemic respiratory failure: Plan: Chronic Respiratory failure d/t COPD requiring 2L of O2 at HS and with exertion but has not required any oxygen while inpatient - DuoNebs every 2 hours as needed - Continue her usual inhalers - Patient's pulse ox is 96% on room air and has not required any with ambulation (3) Acute UTI (urinary tract infection): Plan: - Patient was to take cefdinir on discharge, however, did not take it - Placed on levofloxacin 500 mg IV daily for E. coli UTI which is pansensitive by admitting team and discontinued and narrowed to single dose rocephin and completed 7 day course 02/11 No further urinary symptoms Improvement in dehydration with 1L IVF 02/12 as well as hyponatremia ordered additional 500cc for today and will monitor (4) COVID-19: Plan: - Put back on Dexamethasone by admitting team for ? generalized fatigue from COVID - There is no literature that supports using Decadron in absence of increasing O2 requirements for chronic respiratory failure patients in setting of + COVID - Decadron has been discontinued and has not required O2 WBC elevated day prior, procal negative, WBC resolved on repeat and remains afebrile Slight sore throat, declined need for cough drops currently (5) Gastritis: Plan: - Continue Protonix and Pepcid (6) Atrial fibrillation: Plan: Atrial fibrillation/CAD/hypertension - Stable, continue apixaban, carvedilol, zocor (7) Chronic kidney disease, stage IV (severe): Plan: - Cr elevated to 2.01 with BUN 72 on 02/12, dehydrated Does take lasix QOD at home (had been placed on hold on admission) but appeared slightly dehydrated on exam and given IVF, encouraging PO only takes lasix PRN, weight down --> continue to hold at d/c and only resume if edema (NONE ON EXAM) Switched from LR to NSS @ 70cc/hr for 1 total L after Na dropped to 128, improved to 133 on AM labs BUN 72, Cr 1.87 on AM labs -- Cr baseline closer to ~1.5-1.7 Additional 500cc NSS to be provided today BMP in AM (8) Hypertension: Plan: BPs controlled, continues on coreg BPs improved with improved hydration (9) Diabetes mellitus, type 2: Plan: - Continue acchuchecks AC and HS - Continue sliding scale insulin + Lantus - Blood sugars acceptable (did have elevation to 360/345 on 02/11 around lunch but was given decadron , since discontinued) Plan: PT/OT eval ordered - PT recommending stay in rehab d/t unsteady gait, weakness, and tachycardic with minimal exertion --> repeat eval ok w/ HH. CM arranged Patient wanting to monitor overnight, if feeling stable can d/c home w/ family tomorrow Admission and Anticipated Discharge Date Admission Date: February 10, 2022 Subjective Patient evaluated this morning. Doing well but still with some fatigue. Eating better than on admission, about 50% of meals. Got miralax yesterday, was about to have second dose and had a large BM prior. Improvement in abdominal fullness. Does have a slight sore throat but denying need for cough drops and has them with her. No shortness of breath or chest pain. No further headache. Nervous for d/c and wanted to wait until lunch. Discussed additional IVF for 500cc and monitoring overnight as she would like to ensure stable in AM prior to going home and having to come right back. She does note Lasix at home but ONLY takes as needed for swelling -- currently without ANY swelling at this time. Review of Systems Review of Systems: All systems reviewed & are unremarkable except as noted in HPI & below Physical Exam Physical Exam: GENERAL: WN/WD elderly female resting in bed, NAD HEENT: normocephalic, atraumatic, pupils equal and reactive, slightly dry mm (improved), trachea midline without deviation Resp: CTAB, no w/c/r, 96% on RA CV: RRR, NO calf edema/tenderness, cap refill wnl GI:+BS, soft, nontender : no adan MSK/Neuro: moves all extremities, no focal deficits Psych: AOX3, pleasant and cooperative Skin: warm ,dry, well perfused Results & Data Results & Data ([facility]) Laboratory Results 02/13/22 02/13/22 02/13/22 Range/Units 12:03 09:18 08:32 WBC (4.8-10.8) K/uL RBC (4.2-5.4) M/uL Hgb (12.0-16.0) g/dL Hct (37-47) % MCV (80-100) fL MCH (25-34) pg MCHC (32-36) g/dL RDW Std Deviation (36.4-46.3) fL RDW Coeff of Terri (11.5-14.5) % Plt Count (130-400) K/uL MPV (7.4-10.4) fL Immature Gran % (Auto) % Neut % (Auto) % Lymph % (Auto) % Kaufman % (Auto) % Eos % (Auto) % Baso % (Auto) % Neut # (Auto) (1.4-6.5) K/uL Lymph # (Auto) (1.2-3.4) K/uL Kaufman # (Auto) (0.11-0.59) K/uL Eos # (Auto) (0-0.5) K/uL Baso # (Auto) (0-0.2) K/uL Immature Gran # (Auto) (0.00-0.02) K/uL Sodium (136-145) mmol/L Potassium 4.6 (3.5-5.1) mmol/L Chloride (98-107) mmol/L Carbon Dioxide (21-32) mmol/L Anion Gap (3-11) BUN (6-23) mg/dl Creatinine (0.6-1.2) mg/dl Est Cr Clr Drug Dosing ml/min Est GFR ( Amer) ml/min Est GFR (Non-Af Amer) ml/min BUN/Creatinine Ratio (10-20) Glucose (70-99(Fasting)) mg/dl POC Glucose 179 H 125 H (70-99) mg/dl Calcium (8.5-10.1) mg/dl Total Bilirubin (0.2-1.0) mg/dl AST 37 ALT (7-52) U/L Alkaline Phosphatase (34-104) U/L Total Protein (6.0-8.3) gm/dl Albumin (3.4-5.0) gm/dl Globulin (2.5-4.0) gm/dl Albumin/Globulin Ratio (0.9-2) Procalcitonin (0-0.5) ng/ml 02/13/22 02/13/22 02/12/22 Range/Units 07:51 07:51 20:43 WBC 10.79 (4.8-10.8) K/uL RBC 3.47 L (4.2-5.4) M/uL Hgb 11.2 L (12.0-16.0) g/dL Hct 33.1 L (37-47) % MCV 95.4 (80-100) fL MCH 32.3 (25-34) pg MCHC 33.8 (32-36) g/dL RDW Std Deviation 51.3 H (36.4-46.3) fL RDW Coeff of Terri 15.1 H (11.5-14.5) % Plt Count 172 (130-400) K/uL MPV 11.4 H (7.4-10.4) fL Immature Gran % (Auto) 0.8 % Neut % (Auto) 76.5 % Lymph % (Auto) 12.0 % Kaufman % (Auto) 9.7 % Eos % (Auto) 1.0 % Baso % (Auto) 0.0 % Neut # (Auto) 8.25 H (1.4-6.5) K/uL Lymph # (Auto) 1.29 (1.2-3.4) K/uL Kaufman # (Auto) 1.05 H (0.11-0.59) K/uL Eos # (Auto) 0.11 (0-0.5) K/uL Baso # (Auto) 0.00 (0-0.2) K/uL Immature Gran # (Auto) 0.09 H (0.00-0.02) K/uL Sodium 133 L (136-145) mmol/L Potassium TNP (3.5-5.1) mmol/L Chloride 105 (98-107) mmol/L Carbon Dioxide 21 (21-32) mmol/L Anion Gap 7 (3-11) BUN 72 H (6-23) mg/dl Creatinine 1.87 H (0.6-1.2) mg/dl Est Cr Clr Drug Dosing 16.8 ml/min Est GFR ( Amer) 27.5 ml/min Est GFR (Non-Af Amer) 23.7 ml/min BUN/Creatinine Ratio 38.5 H (10-20) Glucose 124 H (70-99(Fasting)) mg/dl POC Glucose 149 H (70-99) mg/dl Calcium 8.5 (8.5-10.1) mg/dl Total Bilirubin 0.6 (0.2-1.0) mg/dl AST TNP ALT 49 (7-52) U/L Alkaline Phosphatase 64 (34-104) U/L Total Protein 6.2 (6.0-8.3) gm/dl Albumin 3.1 L (3.4-5.0) gm/dl Globulin 3.1 (2.5-4.0) gm/dl Albumin/Globulin Ratio 1.0 (0.9-2) Procalcitonin (0-0.5) ng/ml 02/12/22 02/12/22 02/12/22 Range/Units 17:29 17:20 17:20 WBC (4.8-10.8) K/uL RBC (4.2-5.4) M/uL Hgb (12.0-16.0) g/dL Hct (37-47) % MCV (80-100) fL MCH (25-34) pg MCHC (32-36) g/dL RDW Std Deviation (36.4-46.3) fL RDW Coeff of Terri (11.5-14.5) % Plt Count (130-400) K/uL MPV (7.4-10.4) fL Immature Gran % (Auto) % Neut % (Auto) % Lymph % (Auto) % Kaufman % (Auto) % Eos % (Auto) % Baso % (Auto) % Neut # (Auto) (1.4-6.5) K/uL Lymph # (Auto) (1.2-3.4) K/uL Kaufman # (Auto) (0.11-0.59) K/uL Eos # (Auto) (0-0.5) K/uL Baso # (Auto) (0-0.2) K/uL Immature Gran # (Auto) (0.00-0.02) K/uL Sodium 128 L (136-145) mmol/L Potassium 4.4 (3.5-5.1) mmol/L Chloride 99 (98-107) mmol/L Carbon Dioxide 20 L (21-32) mmol/L Anion Gap 9 (3-11) BUN 73 H (6-23) mg/dl Creatinine 1.87 H (0.6-1.2) mg/dl Est Cr Clr Drug Dosing 16.8 ml/min Est GFR ( Amer) 27.5 ml/min Est GFR (Non-Af Amer) 23.7 ml/min BUN/Creatinine Ratio 39.0 H (10-20) Glucose 118 H (70-99(Fasting)) mg/dl POC Glucose 114 H (70-99) mg/dl Calcium 8.8 (8.5-10.1) mg/dl Total Bilirubin (0.2-1.0) mg/dl AST ALT (7-52) U/L Alkaline Phosphatase (34-104) U/L Total Protein (6.0-8.3) gm/dl Albumin (3.4-5.0) gm/dl Globulin (2.5-4.0) gm/dl Albumin/Globulin Ratio (0.9-2) Procalcitonin < 0.05 (0-0.5) ng/ml PG Care Time/CCT Total # of Minutes Spent Total Time Spent with Patient: Total time spent is greater than 50% in coordination of care (as documented) at patient's floor/unit and/or counseling patient: Coding Level of Care Code 73288 Subseq Hosp Care Lvl 2 Diagnoses Adult failure to thrive R62.7 Chronic hypoxemic respiratory failure J96.11 Acute UTI (urinary tract infection) N39.0 COVID-19 U07.1 Gastritis K29.70 Atrial fibrillation I48.91 Chronic kidney disease, stage IV (severe) N18.4 Hypertension I10 Diabetes mellitus, type 2 E11.9
[2022-02-13 08:30] LABS: Eosinophils # (auto) 0.11 K/uL (0-0.5); Hematocrit (blood only) 33.1 % (37-47); Hemoglobin 11.2 g/dL (12.0-16.0); Immature Granulocytes # (auto) 0.09 K/uL (0.00-0.02); Immature Granulocytes % (auto) 0.8 %; Lymphocytes # (auto) 1.29 K/uL (1.2-3.4); Mean Corpuscular Hemoglobin 32.3 pg (25-34); Mean Corpuscular Hgb Conc 33.8 g/dL (32-36); Mean Corpuscular Volume 95.4 fL (80-100); Mean Platelet Volume 11.4 fL (7.4-10.4); Monocytes # (auto) 1.05 K/uL (0.11-0.59); Monocytes % (auto) 9.7 %; Neutrophils # (auto) 8.25 K/uL (1.4-6.5); Neutrophils % (auto) 76.5 %; Platelet Count 172 K/uL (130-400); RDW Coefficient of Variation 15.1 % (11.5-14.5); RDW Standard Deviation 51.3 fL (36.4-46.3); Red Blood Count 3.47 M/uL (4.2-5.4); White Blood Count 10.79 K/uL (4.8-10.8)
[2022-02-13 08:31] LABS: Alanine Aminotransferase 49 U/L (7-52); Albumin Level 3.1 gm/dl (3.4-5.0); Alkaline Phosphatase 64 U/L (34-104); Anion Gap 7 (3-11); BUN Creatinine Ratio 38.5 (10-20); Bilirubin,Total 0.6 mg/dl (0.2-1.0); Blood Urea Nitrogen 72 mg/dl (6-23); Calcium 8.5 mg/dl (8.5-10.1); Carbon Dioxide 21 mmol/L (21-32); Chloride 105 mmol/L (98-107); Creatinine Clr Calc Pharmacy 16.8 ml/min; Est GFR (African American) 27.5 ml/min; Est GFR (Non-African American) 23.7 ml/min; Globulin 3.1 gm/dl (2.5-4.0); Glucose 124 mg/dl (70-99(Fasting)); Sodium 133 mmol/L (136-145); Total Protein 6.2 gm/dl (6.0-8.3)
[2022-02-13] MEDS: FERROUS SULFATE 325 MG TAB PO SCH (08:38)
[2022-02-13] MEDS: GABAPENTIN 600 MG TAB PO SCH ×3 (08:38→21:14)
[2022-02-13] MEDS: carvediloL 3.125 MG TAB PO SCH ×2 (08:38→21:14)
[2022-02-13] MEDS: APIXABAN 2.5 MG TAB PO SCH ×2 (08:38→21:14)
[2022-02-13] MEDS: PANTOprazole 40 MG TAB PO SCH ×2 (08:39→21:14)
[2022-02-13] MEDS: CALCIUM CARBONATE 1250MG TAB PO SCH (08:39)
[2022-02-13] MEDS: allopurinoL 100 MG TAB PO SCH (08:39)
[2022-02-13] MEDS: FLUTICASONE/VILANTEROL 200/25MCG 14 PUFFS/INHALER INH SCH (08:40)
[2022-02-13] MEDS: UMECLIDINIUM BROMIDE 62.5MCG/BLISTER 7 PUFFS/INHALER INH SCH (08:40)
[2022-02-13] MEDS: POLYETHYLENE (MIRALAX) 17 GM PACK PO SCH (08:40)
[2022-02-13] MEDS: INSULIN ASPART PER UNIT SC SCH ×4 (08:45→21:15)
[2022-02-13] MEDS ORDERED: SODIUM CHLORIDE 0.9% 500 ML IV SCH (10:15)
[2022-02-13 10:17] LABS: Potassium 4.6 mmol/L (3.5-5.1)
[2022-02-13] MEDS ORDERED: POLYETHYLENE (MIRALAX) 17 GM PACK PO PRN (14:37)
[2022-02-13] MEDS: SIMVASTATIN 40 MG TAB PO SCH (21:14)
[2022-02-13] MEDS: FAMOTIDINE 20 MG TAB PO SCH (21:14)
[2022-02-13] MEDS: TRAVOPROST Z 0.004% OPH SOLN 2.5 ML BTL OPB SCH (21:14)
[2022-02-14 07:15] LABS: BUN Creatinine Ratio 33.3 (10-20); Calcium 8.5 mg/dl (8.5-10.1); Creatinine Clr Calc Pharmacy 15.8 ml/min; Est GFR (African American) 25.7 ml/min; Est GFR (Non-African American) 22.2 ml/min; Potassium 4.8 mmol/L (3.5-5.1)
--- NOTE | 2022-02-14 08:07 | Hospitalist Progress Note ---
Date of Service February 14, 2022 Assessment & Plan (1) Adult failure to thrive: Plan: - Generalized weakness and debility in setting of recent + COVID diagnosis which could be contributing to overall fatigue as well as UTI which recently completed abx course while inpatient - Has known depression which does not appear is treated which is likely contributing - PT/OT eval rec'd rehab, however patient stating doing much better and nursing with patient fairly independent, ?home with therapy -- discussed with CM and req repeat therapy dayami. Was told in ER patient needing rehab however if making improvements would strongly consider home with home therapy and could consider discharge over the weekend rather than remaining inpatient until able to be placed CM alerted and following of note, granddaughter Genevieve CM in ER -- will also see about assistance from family at home Miralax added, BID --> large BM 02/12 continue prn Did have slight headache/heartburn 02/11, resolved with tylenol and MOM x 1 -- monitor for any repeat symptoms (2) Chronic hypoxemic respiratory failure: Plan: Chronic Respiratory failure d/t COPD requiring 2L of O2 at HS and with exertion but has not required any oxygen while inpatient - DuoNebs every 2 hours as needed - Continue her usual inhalers - Patient's pulse ox is 96% on room air and has not required any with ambulation (3) Acute UTI (urinary tract infection): Plan: - Patient was to take cefdinir on discharge, however, did not take it - Placed on levofloxacin 500 mg IV daily for E. coli UTI which is pansensitive by admitting team and discontinued and narrowed to single dose rocephin and completed 7 day course 02/11 No further urinary symptoms Improvement in dehydration with 1L IVF 02/12 as well as hyponatremia ordered additional 500cc for today and will monitor (4) COVID-19: Plan: - Put back on Dexamethasone by admitting team for ? generalized fatigue from COVID - There is no literature that supports using Decadron in absence of increasing O2 requirements for chronic respiratory failure patients in setting of + COVID - Decadron has been discontinued and has not required O2 WBC elevated day prior, procal negative, WBC resolved on repeat and remains afebrile Slight sore throat, declined need for cough drops currently (5) Gastritis: Plan: - Continue Protonix and Pepcid (6) Atrial fibrillation: Plan: Atrial fibrillation/CAD/hypertension - Stable, continue apixaban, carvedilol, zocor (7) Chronic kidney disease, stage IV (severe): Plan: - Cr elevated to 2.01 with BUN 72 on 02/12, dehydrated Does take lasix QOD at home (had been placed on hold on admission) but appeared slightly dehydrated on exam and given IVF, encouraging PO only takes lasix PRN, weight down --> continue to hold at d/c and only resume if edema (NONE ON EXAM) Switched from LR to NSS @ 70cc/hr for 1 total L after Na dropped to 128, improved to 133 on AM labs BUN 72, Cr 1.87 on AM labs -- Cr baseline closer to ~1.5-1.7 Additional 500cc NSS to be provided today BMP in AM (8) Hypertension: Plan: BPs controlled, continues on coreg BPs improved with improved hydration (9) Diabetes mellitus, type 2: Plan: - Continue acchuchecks AC and HS - Continue sliding scale insulin + Lantus - Blood sugars acceptable (did have elevation to 360/345 on 02/11 around lunch but was given decadron , since discontinued) Plan: PT/OT eval ordered - PT recommending stay in rehab d/t unsteady gait, weakness, and tachycardic with minimal exertion --> repeat eval ok w/ HH. CM arranged Patient wanting to monitor overnight, if feeling stable can d/c home w/ family tomorrow Admission and Anticipated Discharge Date Admission Date: February 10, 2022 Results & Data Results & Data ([facility]) Vital Signs (Past 12 Hours) Vital Signs Temp Pulse Resp BP Pulse Ox 02/13/22 21:12 36.6 C 60 18 111/66 99 Laboratory Results 02/14/22 02/13/22 02/13/22 Range/Units 06:12 20:33 17:28 WBC (4.8-10.8) K/uL RBC (4.2-5.4) M/uL Hgb (12.0-16.0) g/dL Hct (37-47) % MCV (80-100) fL MCH (25-34) pg MCHC (32-36) g/dL RDW Std Deviation (36.4-46.3) fL RDW Coeff of Terri (11.5-14.5) % Plt Count (130-400) K/uL MPV (7.4-10.4) fL Immature Gran % (Auto) % Neut % (Auto) % Lymph % (Auto) % Knott % (Auto) % Eos % (Auto) % Baso % (Auto) % Neut # (Auto) (1.4-6.5) K/uL Lymph # (Auto) (1.2-3.4) K/uL Knott # (Auto) (0.11-0.59) K/uL Eos # (Auto) (0-0.5) K/uL Baso # (Auto) (0-0.2) K/uL Immature Gran # (Auto) (0.00-0.02) K/uL Sodium 134 L (136-145) mmol/L Potassium 4.8 Chloride 107 (98-107) mmol/L Carbon Dioxide 22 (21-32) mmol/L Anion Gap 5 (3-11) BUN 66 H (6-23) mg/dl Creatinine 1.98 H (0.6-1.2) mg/dl Est Cr Clr Drug Dosing 15.8 ml/min Est GFR ( Amer) 25.7 ml/min Est GFR (Non-Af Amer) 22.2 ml/min BUN/Creatinine Ratio 33.3 H (10-20) Glucose 121 H (70-99(Fasting)) mg/dl POC Glucose 146 H 114 H (70-99) mg/dl Calcium 8.5 (8.5-10.1) mg/dl Total Bilirubin (0.2-1.0) mg/dl AST ALT (7-52) U/L Alkaline Phosphatase (34-104) U/L Total Protein (6.0-8.3) gm/dl Albumin (3.4-5.0) gm/dl Globulin (2.5-4.0) gm/dl Albumin/Globulin Ratio (0.9-2) 02/13/22 02/13/22 02/13/22 Range/Units 12:03 09:18 08:32 WBC (4.8-10.8) K/uL RBC (4.2-5.4) M/uL Hgb (12.0-16.0) g/dL Hct (37-47) % MCV (80-100) fL MCH (25-34) pg MCHC (32-36) g/dL RDW Std Deviation (36.4-46.3) fL RDW Coeff of Terri (11.5-14.5) % Plt Count (130-400) K/uL MPV (7.4-10.4) fL Immature Gran % (Auto) % Neut % (Auto) % Lymph % (Auto) % Knott % (Auto) % Eos % (Auto) % Baso % (Auto) % Neut # (Auto) (1.4-6.5) K/uL Lymph # (Auto) (1.2-3.4) K/uL Knott # (Auto) (0.11-0.59) K/uL Eos # (Auto) (0-0.5) K/uL Baso # (Auto) (0-0.2) K/uL Immature Gran # (Auto) (0.00-0.02) K/uL Sodium (136-145) mmol/L Potassium 4.6 Chloride (98-107) mmol/L Carbon Dioxide (21-32) mmol/L Anion Gap (3-11) BUN (6-23) mg/dl Creatinine (0.6-1.2) mg/dl Est Cr Clr Drug Dosing ml/min Est GFR ( Amer) ml/min Est GFR (Non-Af Amer) ml/min BUN/Creatinine Ratio (10-20) Glucose (70-99(Fasting)) mg/dl POC Glucose 179 H 125 H (70-99) mg/dl Calcium (8.5-10.1) mg/dl Total Bilirubin (0.2-1.0) mg/dl AST 37 ALT (7-52) U/L Alkaline Phosphatase (34-104) U/L Total Protein (6.0-8.3) gm/dl Albumin (3.4-5.0) gm/dl Globulin (2.5-4.0) gm/dl Albumin/Globulin Ratio (0.9-2) 02/13/22 02/13/22 Range/Units 07:51 07:51 WBC 10.79 (4.8-10.8) K/uL RBC 3.47 L (4.2-5.4) M/uL Hgb 11.2 L (12.0-16.0) g/dL Hct 33.1 L (37-47) % MCV 95.4 (80-100) fL MCH 32.3 (25-34) pg MCHC 33.8 (32-36) g/dL RDW Std Deviation 51.3 H (36.4-46.3) fL RDW Coeff of Terri 15.1 H (11.5-14.5) % Plt Count 172 (130-400) K/uL MPV 11.4 H (7.4-10.4) fL Immature Gran % (Auto) 0.8 % Neut % (Auto) 76.5 % Lymph % (Auto) 12.0 % Knott % (Auto) 9.7 % Eos % (Auto) 1.0 % Baso % (Auto) 0.0 % Neut # (Auto) 8.25 H (1.4-6.5) K/uL Lymph # (Auto) 1.29 (1.2-3.4) K/uL Knott # (Auto) 1.05 H (0.11-0.59) K/uL Eos # (Auto) 0.11 (0-0.5) K/uL Baso # (Auto) 0.00 (0-0.2) K/uL Immature Gran # (Auto) 0.09 H (0.00-0.02) K/uL Sodium 133 L (136-145) mmol/L Potassium TNP Chloride 105 (98-107) mmol/L Carbon Dioxide 21 (21-32) mmol/L Anion Gap 7 (3-11) BUN 72 H (6-23) mg/dl Creatinine 1.87 H (0.6-1.2) mg/dl Est Cr Clr Drug Dosing 16.8 ml/min Est GFR ( Amer) 27.5 ml/min Est GFR (Non-Af Amer) 23.7 ml/min BUN/Creatinine Ratio 38.5 H (10-20) Glucose 124 H (70-99(Fasting)) mg/dl POC Glucose (70-99) mg/dl Calcium 8.5 (8.5-10.1) mg/dl Total Bilirubin 0.6 (0.2-1.0) mg/dl AST TNP ALT 49 (7-52) U/L Alkaline Phosphatase 64 (34-104) U/L Total Protein 6.2 (6.0-8.3) gm/dl Albumin 3.1 L (3.4-5.0) gm/dl Globulin 3.1 (2.5-4.0) gm/dl Albumin/Globulin Ratio 1.0 (0.9-2) PG Care Time/CCT Total # of Minutes Spent Total Time Spent with Patient: Total time spent is greater than 50% in coordination of care (as documented) at patient's floor/unit and/or counseling patient: Coding Diagnoses Adult failure to thrive R62.7 Chronic hypoxemic respiratory failure J96.11 Acute UTI (urinary tract infection) N39.0 COVID-19 U07.1 Gastritis K29.70 Atrial fibrillation I48.91 Chronic kidney disease, stage IV (severe) N18.4 Hypertension I10 Diabetes mellitus, type 2 E11.9
[2022-02-14] MEDS ORDERED: SODIUM CHLORIDE 0.9% 500 ML IV SCH (08:15)
[2022-02-14] MEDS: INSULIN ASPART PER UNIT SC SCH (08:59)
[2022-02-14] MEDS: carvediloL 3.125 MG TAB PO SCH (09:04)
[2022-02-14] MEDS: FERROUS SULFATE 325 MG TAB PO SCH (09:04)
[2022-02-14] MEDS: allopurinoL 100 MG TAB PO SCH (09:04)
[2022-02-14] MEDS: APIXABAN 2.5 MG TAB PO SCH (09:04)
[2022-02-14] MEDS: CALCIUM CARBONATE 1250MG TAB PO SCH (09:04)
[2022-02-14] MEDS: GABAPENTIN 600 MG TAB PO SCH (09:04)
[2022-02-14] MEDS: PANTOprazole 40 MG TAB PO SCH (09:04)
[2022-02-14] MEDS: UMECLIDINIUM BROMIDE 62.5MCG/BLISTER 7 PUFFS/INHALER INH SCH (09:05)
[2022-02-14] MEDS: FLUTICASONE/VILANTEROL 200/25MCG 14 PUFFS/INHALER INH SCH (09:05)
--- NOTE | 2022-02-14 10:32 | Discharge Summary ---
Date of Service February 14, 2022 Admission HPI Per Admitting Provider The patient is an 86-year-old female with a past medical history including acute urinary tract infection, COVID-19, acute kidney injury, dysphonia, gastritis, chronic respiratory failure with hypoxia, pulmonary pretension, atrial fibrillation, CKD stage IV, COPD, CAD, hypertension, hyperlipidemia, diabetes mellitus and GERD. The patient was most recently admitted to [facility] from 02/04-02/07/22, and was advised to go to inpatient rehab post admission, but refused to do so and insisted on going home. Upon arrival home, family has not been unable to get the patient to take her medications, and was having signif icant issues with generalized weakness. The patient's main new symptom since discharge is progression of weakness Admission Exam Per Admitting Provider The patient is awake, has a noticeable tremor, well developed and well nourished, lying in bed and in no acute distress, and primarily response is that she "is not happy" HEENT--PERRL, EOMI, mucous membranes and oropharynx dry. Neck--supple. No JVD. No bruits. Thyroid normal, trachea midline, no adenopathy. Heart--normal S1 and S2. No murmurs, rubs or gallops. Lungs--clear bilaterally, no respiratory distress, no accessory muscle use. Abdomen--normal bowel sounds and soft. Nontender. Nondistended Extremities--no cyanosis or clubbing. No edema. Dermatologic--normal skin turgor, normal color, no abnormal lymph nodes, no rash. Neurologic--cranial nerves II through XII grossly intact. Rheumatologic--normal range of motion. Psychiatric--normal affect. Principal Diagnosis Failure to Thrive, UTI, COVID 19 Discharge Exam GENERAL: WN/WD elderly female resting in bed, NAD HEENT: normocephalic, atraumatic, pupils equal and reactive, slightly dry mm (improved from day prior), trachea midline without deviation Resp: CTAB, no w/c/r, 96% on RA CV: RRR, NO calf edema/tenderness, cap refill wnl GI:+BS, soft, nontender : no adan MSK/Neuro: moves all extremities, no focal deficits Psych: AOX3, pleasant and cooperative Skin: warm ,dry, well perfused Discharge Data Allergies Allergy/AdvReac Type Severity Reaction Status Date / Time Sulfa (Sulfonamide Allergy Severe ANAPHYLAXIS; Verified 02/08/22 23:59 Antibiotics) TAKES AMARYL W/O REACTION cephalexin [From Keflex] Allergy Intermediate Headahce; Verified 02/08/22 23:59 Nausea; Rash nystatin Allergy Intermediate Wheezing Verified 02/08/22 23:59 amoxicillin [From Augmentin] Allergy Unknown CAN'T Verified 02/08/22 23:59 REMEMBER clavulanic acid Allergy Unknown CAN'T Verified 02/08/22 23:59 [From Augmentin] REMEMBER thyroid, pork Allergy Unknown "ALL Verified 02/08/22 23:59 THYROID AGENTS"-PT UNSURE OF REACTION Cephalosporins AdvReac Intermediate KEFLEX Verified 02/08/22 23:59 ALLERGY -NAUSEA Consultations 02/09/22 00:59 ED Decision to Admit Stat Ordered Studies Chest X-Ray 02/08/22 23:39 XR chest 1V portable HISTORY: 86 years-old Female SEPSIS acute sepsis COMPARISON: Chest radiograph 02/04/2022 TECHNIQUE: Portable AP view of the chest FINDINGS: The cardiac silhouette is enlarged. Atherosclerosis of the aorta. Calcifications of the mitral annulus. No pneumothorax, large pleural effusion or overt pulmonary edema. Mild subsegmental bibasilar densities suggest atelectasis. Degenerative changes of the shoulders and spine. IMPRESSION: Cardiomegaly without acute process. ACT 112: Negative or not required by law. The above report was generated using voice recognition software. It may contain grammatical, syntax or spelling errors. Electronically signed by: Fede Benitez M.D. 02/09/2022 6:59 AM Hospital Course (1) Adult failure to thrive: Generalized weakness and debility in setting of recent + COVID diagnosis which could be contributing to overall fatigue as well as UTI which recently completed abx course while inpatient Has known depression which does not appear is treated which is likely contributing - PT/OT eval rec'd rehab, however patient stating doing much better and nursing with patient fairly independent, ?home with therapy -- discussed with CM and req repeat therapy evals. Was told in ER patient needing rehab however if making improvements would strongly consider home with home therapy and could consider discharge over the weekend rather than remaining inpatient until able to be placed Repeat PT/OT evals with patient able to go home with services. Discussed with family, CM arranged for HH Encouraged PO intake/supplementation with boost/ensure if not feeling hungry at home but has been eating ~50% or greater of trays and did report improvement in appetite Daughter traveling back from [place], and patient going to stay at sisters w/ one floor/bathroom/ettc for ease at d/c (2) Chronic hypoxemic respiratory failure: Chronic Respiratory failure d/t COPD requiring 2L of O2 at HS and with exertion but has not required any oxygen while inpatient Duonebs prn COntinued usual inhalers Encouraged 2L w/ ambulation at home as already has but denied any increased SOB and remained stable on RA. 97% on RA prior to d/c (3) Acute UTI (urinary tract infection): Patient was to take cefdinir on discharge, however, did not take it - Placed on levofloxacin 500 mg IV daily for E. coli UTI which is pansensitive by admitting team and discontinued and narrowed to single dose rocephin and completed 7 day course 02/11 No further urinary symptoms Improvement in dehydration with 1L IVF 02/12 as well as hyponatremia and additional 500cc ordered and encouraged continued pushing oral fluids at home (4) COVID-19: Put back on Dexamethasone by admitting team for ? generalized fatigue from COVID There is no literature that supports using Decadron in absence of increasing O2 requirements for chronic respiratory failure patients in setting of + COVID - Decadron discontinued and has not required O2 WBC elevated days prior, likely 2nd to decadron procal negative WBC on repeat w/ resolution HR improved w/ hydration No increased O2 needs and remained on ROOM AIR (5) Gastritis: Continued Protonix and Pepcid (6) Atrial fibrillation: Atrial fibrillation/CAD/hypertension - Stable, continued apixaban, carvedilol, zocor (7) Chronic kidney disease, stage IV (severe): Cr elevated to 2.01 with BUN 72 on 02/12, dehydrated Does take lasix QOD at home (had been placed on hold on admission) but appeared slightly dehydrated on exam and given IVF, encouraging PO only takes lasix PRN, weight down --> continue to hold at d/c and only resume if edema (NONE ON EXAM) Na improved w/ hydration, additional 500cc prior to d/c and encouraged PO F/u Dr Gleason as already scheduled patient states has upcoming appointment Instructed adri bañuelos to ensure patient NOT taking telmisartan at home as d/c'd last admission and BP has remained quite stable (8) Hypertension: BPs controlled, continued on coreg BPs improved with improved hydration (9) Diabetes mellitus, type 2: Held home meds, placed on ISS while inpatient + lantus BSgs acceptable except slight elevation 02/11, likely from given decadron which was since discontinued and BSGs remained stable Continue demetria meds at d/c PT/OT initially rec rehab however after tx of UTI patient quite independent in room, eating/drinking, and wanting to go home. Repeat evals indicate ability to go home. CM arranged for home health. Granddaughter picked her up, daughter traveling back from [place] today. Patient to stay w/ her sister in the meantime Total Time Total Time Spent Total Time Spent (In Minutes): 60 Discharge Plan Discharge Items Patient Disposition: Home - Home Health Services Reason For Visit: WEAKNESS Discharge Diagnosis: Acute UTI, Failure to Thrive, COVID Goals: You have been hospitalized for an acute medical problem. During your stay at [facility], we have made an effort to correct the problem that brought you to the hospital while keeping you as comfortable as possible. Medications were used to bring your condition under control and your discharge instructions will include directions for any medications you should take after leaving the hospital. Please make sure you see your Primary Care Provider as part of your follow up plan. Activity: As commented below Activity Comment: advance with home health Non-emergency contact: Primary Care Provider Call non-emergency contact if: you have any medication questions and your symptoms worsen Follow-up/Referrals: Jeyson Peña MD [Primary Care Provider] - Diet: Carb Consistent or DM2 and Heart Healthy Addtl Attending Provider Instructions: You have been hospitalized for ongoing issues after diagnosis with covid-19 and acute UTI. Antibiotics were continued and repeat urine testing has been negative and you completed a course while in the hospital. Your oxygen levels have been normal and no need for additional supplementation. You should continue your usual 2 liters with ambulation. The main focus at discharge is eating/drinking enough to meet your needs. As discussed, if you aren't hungry for a third meal, I have talked with your family about supplementing with boost/ensure once a day as well as increased water intake. You should NOT be taking any further of the diuretic/BP medication telmisartan as discontinued last admission, and should avoid taking any Lasix at this time as you have been quite dehydrated and rehydrated with IV fluids. Home health has been arranged. Please follow up with your PCP in the next 7-10 days to monitor your status. Follow up with Dr Gleason as previously scheduled to monitor your kidney function. Please return to the ER with any worsening confusion, shortness of breath, or for any other symptoms concerning for you. Pending Studies at Discharge: No Stand-Alone Forms: [facility] Medications and DC Order Prescriptions: Continued (DME) lancets [TechLITE Lancets] 30 gauge misc See Rx Instructions .ROUTE .MEDSUPPLY Qty: 400 RF: 3 simvastatin 40 mg tablet 40 mg PO HS Qty: 90 RF: 3 budesonide-formoterol [Symbicort] 160-4.5 mcg/actuation HFA aerosol inhaler 2 puff inhalation BID Qty: 3 RF: 2 Eliquis 2.5 mg tablet 2.5 mg PO BID Qty: 180 RF: 3 albuterol sulfate 90 mcg/actuation HFA aerosol inhaler 2 puff inhalation Q6H PRN (Reason: shortness of breath or wheezing) Qty: 3 RF: 1 carvedilol 3.125 mg tablet 3.125 mg PO BID Qty: 180 RF: 3 (DME) Portable Oxygen Misc See Rx Instructions .Route Qty: 1 RF: 0 allopurinol 100 mg tablet 200 mg PO QAM Qty: 180 RF: 3 (DME) pen needle, diabetic [BD Ultra-Fine Vielka Pen Needle] 32 gauge x 5/32" needle See Dose Instructions .ROUTE .MEDSUPPLY Qty: 400 RF: 3 (DME) FreeStyle Jelly 2 Sensor Kit See Rx Instructions .Route RF: 0 (DME) FreeStyle Jelly 2 [place] Misc See Rx Instructions .Route RF: 0 Novolog Flexpen U-100 Insulin 100 unit/mL (3 mL) insulin pen See Rx Instructions SUBCUT .COMPLEX 90 Days Qty: 30 RF: 3 gabapentin 600 mg tablet 600 mg PO TID RF: 0 levalbuterol HCl 1.25 mg/3 mL solution for nebulization 1.25 mg INH Q4H PRN (Reason: shortness of breath or wheezing) Qty: 90 RF: 3 furosemide [Lasix] 40 mg tablet 40 mg PO Q OTHER DAY PRN (Reason: Edema) Qty: 45 RF: 1 (DME) blood sugar diagnostic Strip See Rx Instructions .ROUTE .MEDSUPPLY RF: 0 glucosamine-chondroitin [Osteo Bi-Flex] 250-200 mg Tablet 2 tab PO BID RF: 0 ferrous sulfate 325 mg (65 mg iron) tablet 325 mg PO QAM RF: 0 travoprost [Travatan Z] 0.004 % Drops 1 drp OPB HS RF: 0 Spiriva with HandiHaler 18 mcg capsule, w/inhalation device 1 cap INHALATION QAM RF: 0 calcium carbonate [Calcium 600] 600 mg calcium (1,500 mg) tablet 600 mg PO QAM RF: 0 famotidine [Acid Outbound Sales Representative (famotidine)] 20 mg tablet 20 mg PO HS RF: 0 pantoprazole 40 mg tablet,delayed release (DR/EC) 40 mg PO BID RF: 0 insulin glargine [Lantus Solostar U-100 Insulin] 100 unit/mL (3 mL) insulin pen 8 unit subcut HS RF: 0 Discontinued cefdinir 300 mg Capsule 300 mg PO DAILY 3 Days Qty: 3 RF: 0 Discharge Orders: Discharge Order (Routine); Ordered 02/14/22 Ordered By: Cecilia Castañeda Admission Data Admit Date/Time: 02/10/22 14:38 Attending Provider: Devaughn Pickett Admit Provider: Wayne Oropeza Primary Care Provider: Jeyson Peña Other Providers: Wayne Oropeza ; Mateo [facility] ; [facility] ; [facility] Other Interventions: Discharge Summary Assessment (RN) Last Done: 02/14/22 11:29 Coding Level of Care Code D/C DAY MANAGEMENT >30 MINS Diagnoses Adult failure to thrive R62.7 Chronic hypoxemic respiratory failure J96.11 Acute UTI (urinary tract infection) N39.0 COVID-19 U07.1 Gastritis K29.70 Atrial fibrillation I48.91 Chronic kidney disease, stage IV (severe) N18.4 Hypertension I10 Diabetes mellitus, type 2 E11.9
== END 2022-02-14 12:24 | disposition home health service (06) | DRG 178 ==
LOC: 3N 23:14 → ED 23:14 → SUATTDRO 02-09 02:00 → 3N 02-09 04:33 → SUATTDRO 02-10 14:38

== ENCOUNTER 2022-08-02 15:53 | Inpatient (IN) ==
[2022-08-02] MEDS ORDERED: SODIUM CHLORIDE 0.9% 1000ML 1,000 ML IV SCH (16:45)
[2022-08-02 17:14] LABS: Basophils # (auto) 0.04 K/uL (0-0.2); Basophils % (auto) 0.5 %; Eosinophils # (auto) 0.21 K/uL (0-0.50); Eosinophils % (auto) 2.7 %; Hematocrit (blood only) 40.4 % (34.1-44.9); Hemoglobin 13.5 g/dl (12.0-16.0); Immature Granulocytes # (auto) 0.03 K/uL (0.00-0.02); Immature Granulocytes % (auto) 0.4 %; Lymphocytes # (auto) 1.17 K/uL (1.2-3.4); Mean Corpuscular Hemoglobin 31.5 pg (25.0-34.0); Mean Corpuscular Hgb Conc 33.4 g/dL (32.0-36.0); Mean Corpuscular Volume 94.2 fL (80.0-100.0); Mean Platelet Volume 11.4 fL (9.4-12.3); Monocytes # (auto) 0.57 K/uL (0.24-0.82); Monocytes % (auto) 7.3 %; Neutrophils # (auto) 5.77 K/uL (1.4-6.5); Neutrophils % (auto) 74.1 %; Platelet Count 168 K/uL (130-400); RDW Coefficient of Variation 14.7 % (11.5-14.5); RDW Standard Deviation 50.6 fL (36.4-46.3); Red Blood Count 4.29 M/uL (3.93-5.22); White Blood Count 7.79 K/ul (4.8-10.8)
--- NOTE | 2022-08-02 17:27 | Emergency Department Note ---
History of Present Illness General Chief complaint: Illness Stated complaint: shaking, pale color Time Seen by Provider: 08/02/22 16:39 Source: patient Mode of arrival: ambulatory Limitations: altered mental status History of Present Illness Provider complaint: shaking, pale, illness This is an 87-year-old female presents emergency department with daughter due to concern for illness. Daughter states that the patient texted her around 1 PM asking her to come to the house because she did not feel well. The daughter states this is highly unusual. Patient lives with a sister who is special needs but highly functioning. Daughter is not aware of any recent illness and her any recent medication changes. Patient states she does not know what is wrong, does not know when it started, cannot describe her symptoms. When I asked her about pain she places her hand on her abdomen but seems to have a difficult time verbalizing this. I asked her if she has other areas of pain she says no. Patient states "I do not feel well". Home Medications Medication Instructions Recorded Confirmed Type glucosamine-chondroitin 250 mg-200 2 tab PO BID 05/13/18 08/02/22 History mg tablet (Osteo Bi-Flex) levalbuterol HCl 1.25 mg/3 mL 1.25 mg (3 mL) inhalation Q4H PRN 07/28/19 08/02/22 Rx solution for nebulization shortness of breath or wheezing #90 mL ferrous sulfate 325 mg (65 mg 325 mg PO QAM 06/24/20 08/02/22 History iron) tablet travoprost 0.004 % eye drops 1 drp OPB HS 11/13/20 08/02/22 History (Travatan Z) TechLITE Lancets 30 gauge (lancets) #400 ea 12/26/20 07/29/22 Rx flash glucose scanning reader 07/31/21 07/29/22 History (FreeStyle Jelly 2 [place]) flash glucose sensor (FreeStyle 07/31/21 07/29/22 History Jelly 2 Sensor kit) apixaban 2.5 mg tablet (Eliquis) 2.5 mg PO BID #180 tabs 08/18/21 08/02/22 Rx budesonide-formoterol HFA 160 2 puff inhalation BID #3 Inhalers 08/18/21 Rx mcg-4.5 mcg/actuation aerosol inhaler (Symbicort) albuterol sulfate 90 mcg/actuation 2 puff inhalation Q6H PRN 09/04/21 08/02/22 Rx aerosol inhaler shortness of breath or wheezing #3 Inhalers carvedilol 3.125 mg tablet 3.125 mg PO BID #180 tabs 09/24/21 08/02/22 Rx blood sugar diagnostic 09/26/21 07/29/22 History Portable Oxygen #1 ea 10/17/21 07/29/22 Rx allopurinol 100 mg tablet 200 mg PO QAM #180 tabs 12/19/21 08/02/22 Rx BD Ultra-Fine Vielka Pen Needle 32 #400 ea 01/15/22 07/29/22 Rx gauge x 5/32" (pen needle, diabetic) calcium carbonate 600 mg calcium 600 mg PO QAM 02/04/22 08/02/22 History (1,500 mg) tablet (Calcium) famotidine 20 mg tablet (Acid 20 mg PO HS 02/04/22 08/02/22 History [employer] (famotidine)) pantoprazole 40 mg tablet,delayed 40 mg PO BID 02/04/22 08/02/22 History release tiotropium bromide 18 mcg capsule 1 cap inhalation QAM 02/04/22 08/02/22 History with inhalation device (Spiriva with HandiHaler) Novolog Flexpen U-100 Insulin 100 12 - 20 unit (0.12 - 0.2 mL) 05/22/22 08/02/22 Rx unit/mL (3 mL) subcutaneous subcut TID 90 days #60 mL (insulin aspart U-100) furosemide 40 mg tablet (Lasix) 40 mg PO Q OTHER DAY PRN Edema #45 06/08/22 08/02/22 Rx tabs insulin glargine 100 unit/mL (3 8 unit (0.08 mL) subcut HS #1 box 07/20/22 08/02/22 Rx mL) subcutaneous pen (Lantus Solostar U-100 Insulin) simvastatin 40 mg tablet 40 mg PO HS #90 tabs 07/29/22 08/02/22 Rx gabapentin 600 mg tablet 600 mg PO TID 08/02/22 08/02/22 History Allergies Allergy/AdvReac Type Severity Reaction Status Date / Time Sulfa (Sulfonamide Allergy Severe ANAPHYLAXIS; Verified 08/02/22 17:19 Antibiotics) TAKES AMARYL W/O REACTION cephalexin [From Keflex] Allergy Intermediate Headahce; Verified 08/02/22 17:19 Nausea; Rash nystatin Allergy Intermediate Wheezing Verified 08/02/22 17:19 amoxicillin [From Augmentin] Allergy Unknown CAN'T Verified 08/02/22 17:19 REMEMBER clavulanic acid Allergy Unknown CAN'T Verified 08/02/22 17:19 [From Augmentin] REMEMBER thyroid, pork Allergy Unknown "ALL Verified 08/02/22 17:19 THYROID AGENTS"-PT UNSURE OF REACTION Cephalosporins AdvReac Intermediate KEFLEX Verified 08/02/22 17:19 ALLERGY -NAUSEA Past Med/Surg History Medical History Acute exacerbation of chronic obstructive pulmonary disease Adult failure to thrive Adverse reaction to anesthetic agent Hard to wake up Anemia Asthma CAD (coronary artery disease) NON-OBSTRUCTIVE Cardiorenal syndrome Chronic anticoagulation Chronic back pain RLE RADICULOPATHY Chronic hypoxemic respiratory failure Chronic kidney disease, stage III (moderate) Congestive heart failure DIASTOLIC COPD (chronic obstructive pulmonary disease) Decreased oral intake Depression Diabetes mellitus, type 2 Dyspnea on exertion GERD (gastroesophageal reflux disease) CONTROLLED Glaucoma Gout Headache TEMPORAL BIOPSY DONE IN 2018 Hiatal hernia History of central retinal artery occlusion History of diverticulitis History of hypothyroidism EUTHYROID ON MORE RECENT TESTING Hx of gout Hyperlipidemia Hypertension Hyponatremia Lumbar spinal stenosis Nausea Nocturnal hypoxemia On home oxygen therapy WEARS 2L O2 "MOST OF THE TIME" Osteoarthritis Pulmonary HTN SEVERE PULMONARY HTN (RVSP > 60MMHG) Pulmonary hypertension Pulmonary nodule Seizure 18 YEARS AGO; NO ISSUES SINCE Tremor ESSENTIAL TREMOR (HEAD) Valvular disease MODERATE TO SEVERE TR. MODERATE AV SCLEROSIS Vitamin D deficiency Surgical History History of cardiac cath 2008 NO STENTS History of cataract surgery RT/LEFT History of dacryocystorhinostomy bilateral History of dilation and curettage History of surgery CYSTOCELE REPAIR RECTOCELE REPAIR History of temporal artery biopsy 02/08/14= MAC SEDATION WITHOUT ISSUES AT [facility] History of tooth extraction History of total hip arthroplasty (~07/16/09) LEFT Family History Father , Age 60 from [place] Myocardial infarction Diabetes Hypertension Grandfather Stroke Mother Cancer Hearing loss Allergies Aunt Hearing loss Other Asthma Coronary heart disease Heart disease No family history of adverse response to anesthesia No family history of bleeding disorder Denies family history of Ovarian cancer Prostate cancer Breast cancer Lung cancer Colorectal cancer Social History Smoking Status: Never smoker Second Hand Exposure: No; Do You Dip or Chew Tobacco: No; Hx Alcohol Use: No Hx Substance Use: No Preferred Language: Romansh Communication Ability: Effective Visual Impairment: No Limitations Hearing Ability: Normal Solution Lead Required: No Beliefs That Will Affect Care: None marital status: / Current Living Situation: Family Current Living Situation Comment: Lives with younger sister current occupational status: retired How many Children do You have: 2 Other Information That Helps Us Care for You: No Feels Safe at Home: Yes Safety Concerns: Feels Safe At This Time Childhood Exposure to Second-Hand Smoke: No caffeine: Yes Dental Care, Regularly: Yes Physical Activity Frequency: Does not Exercise Seatbelt Use: always Sunscreen Use: Yes Assistive Devices: Cane, Oxygen - at Night and Walker Review of Systems A total of 10 systems reviewed and were otherwise negative All systems reviewed & are unremarkable except as noted in HPI & below Physical Exam Vital Signs Vital Signs - 24 hr 08/02/22 16:04 08/02/22 18:36 Temperature 36.2 C L Temperature Source Temporal Artery Scan Pulse Rate 85 Pulse Rate [Apical] 74 Respiratory Rate 18 24 Respiratory Effort / Characteristics Non-Labored Spontaneous Respiratory Depth Normal Respiratory Pattern Regular Blood Pressure 167/102 H Blood Pressure [Right Arm] 180/100 H Blood Pressure Mean 123 Blood Pressure Mean [Right Arm] 126 Blood Pressure Position Sitting Pulse Oximetry 98 94 Oxygen Delivery Method Room Air Nasal Cannula Oxygen Flow Rate 2 Sepsis Recent Fever Within 48 Hours No Sepsis New/Unexplained Change in Mental Status N/A Sepsis Action Taken by Nursing No Action Required GENERAL: alert, well appearing, well nourished, no distress, non-toxic EYE EXAM: normal conjunctiva, PERRL and EOM's grossly intact OROPHARYNX: no exudate, no erythema, lips, buccal mucosa, and tongue normal and mucous membranes are dry NECK: supple, no nuchal rigidity, no adenopathy, non-tender LUNGS: Clear to auscultation. Normal chest wall mechanics, no w/r/r HEART: no murmurs, S1 normal and S2 normal ABDOMEN: abdomen soft, non-tender, normo-active bowel sounds, no masses, no r ebound or guarding. BACK: Back is symmetrical on inspection and there is no deformity, no midline t enderness, no CVA tenderness. SKIN: no rashes and no bruising, pallor UPPER EXTREMITIES: upper extremities are grossly normal. FROM, nml pulses b/l. LOWER EXTREMITIES: No pitting edema. FROM, nml pulses b/l. NEURO EXAM: Normal sensorium, cranial nerves II-XII grossly intact, normal speech, no gross weakness of arms, no gross weakness of legs. Gross sensation intact. Obvious tremor. Course Course 2015: Patient and family updated on results. Patient does feel improved she does not feel back to normal, daughter affirms this at bedside stating she still does not appear in her usual state, is not as clear, and is still very tremulous. We discussed her allergies. Patient is only ever had cephalexin, no other cephalosporins to her knowledge. We discussed additional inpatient evaluation and management, she verbalized understanding and was in agreement. Administered Medications Allopurinol (Allopurinol 100 Mg Tab) 200 mg PO QAM LEA Stop: 09/02/22 08:59 Last Admin: 08/03/22 08:28 Dose: 200 mg Documented By: MG Apixaban (Apixaban 2.5 Mg Tab) 2.5 mg PO BID LEA Stop: 09/01/22 22:58 Last Admin: 08/03/22 20:02 Dose: 2.5 mg Documented By: Admin: 08/03/22 08:27 Dose: 2.5 mg Documented By: Admin: 08/02/22 23:51 Dose: 2.5 mg Documented By: KJJuventino Carvedilol (Carvedilol 3.125 Mg Tab) 3.125 mg PO BID LEA Stop: 09/01/22 22:58 Last Admin: 08/03/22 20:02 Dose: 3.125 mg Documented By: Admin: 08/03/22 08:27 Dose: 3.125 mg Documented By: Admin: 08/02/22 23:51 Dose: 3.125 mg Documented By: ROSENDO Famotidine (Famotidine 20 Mg Tab) 20 mg PO HS LEA Stop: 09/01/22 22:58 Last Admin: 08/03/22 20:01 Dose: 20 mg Documented By: Admin: 08/02/22 23:51 Dose: 20 mg Documented By: ROSENDO Fluticasone/Vilanterol (Fluticasone/Vilanterol 100/25mcg 14 Puffs/Inhaler) 1 puffs INH DAILY LEA Stop: 09/02/22 08:59 Last Admin: 08/03/22 08:29 Dose: 1 puffs Documented By: MG Gabapentin (Gabapentin 600 Mg Tab) 600 mg PO TID LEA Stop: 09/01/22 22:58 Last Admin: 08/03/22 20:01 Dose: 600 mg Documented By: Admin: 08/03/22 13:39 Dose: 600 mg Documented By: Admin: 08/03/22 08:28 Dose: 600 mg Documented By: Admin: 08/02/22 23:50 Dose: 600 mg Documented By: ROSENDO Ceftriaxone Sodium 1,000 mg/ (Dextrose) 50 mls @ 100 mls/hr IV Q24H [facility]; Protocol Stop: 08/08/22 19:59 Last Infusion: 08/03/22 20:46 Dose: 0 mls/hr Documented By: Admin: 08/03/22 19:53 Dose: 100 mls/hr Documented By: ED Insulin Aspart (Insulin Aspart Per Unit) 0 units SC ACHS [facility] Stop: 09/01/22 22:58 Last Admin: 08/03/22 20:22 Dose: Not Given Documented By: ED Co-signed By: Admin: 08/03/22 17:21 Dose: 2 units Documented By: Co-signed By: TIFFANIE Admin: 08/03/22 12:09 Dose: 1 units Documented By: Co-signed By: OBDULIO Admin: 08/03/22 08:26 Dose: 1 units Documented By: Co-signed By: OBDULIO Admin: 08/03/22 00:02 Dose: Not Given Documented By: ROSENDO Co-signed By: LAT Insulin Glargine (Lantus Per Unit Charge) 4 units SQ BID [facility] Stop: 09/01/22 22:58 Last Admin: 08/03/22 20:21 Dose: 4 units Documented By: ED Co-signed By: Admin: 08/03/22 08:27 Dose: 4 units Documented By: MG Co-signed By: ALA Admin: 08/03/22 00:03 Dose: 4 units Documented By: ROSENDO Co-signed By: LAT Pantoprazole Sodium (Pantoprazole 40 Mg Tab) 40 mg PO BID [facility] Stop: 09/01/22 22:58 Last Admin: 08/03/22 20:01 Dose: 40 mg Documented By: Admin: 08/03/22 08:28 Dose: 40 mg Documented By: Admin: 08/02/22 23:50 Dose: 40 mg Documented By: SHIVANIL Polyethylene Glycol (Polyethylene (Miralax) 17 Gm Pack) 17 gm PO DAILY LEA Stop: 09/02/22 16:44 Last Admin: 08/03/22 17:22 Dose: 17 gm Documented By: MG Sennosides (Senna 8.6 Mg Tab) 17.2 mg PO QAM [facility] Stop: 09/02/22 16:44 Last Admin: 08/03/22 17:22 Dose: 17.2 mg Documented By: MG Simvastatin (Simvastatin 40 Mg Tab) 40 mg PO [facility] Stop: 09/01/22 22:58 Last Admin: 08/03/22 20:01 Dose: 40 mg Documented By: Admin: 08/02/22 23:51 Dose: 40 mg Documented By: ROSENDO Travoprost (Travoprost Z 0.004% Oph Soln 2.5 Ml Btl) 1 drops OPB [facility] Stop: 09/01/22 22:58 Last Admin: 08/03/22 20:01 Dose: 1 drops Documented By: Admin: 08/02/22 23:50 Dose: 1 drops Documented By: ROSENDO Umeclidinium [place] (Umeclidinium [place] 62.5mcg/Blister 7 Puffs/Inhaler) 1 puffs INH QAM [facility]A Stop: 09/02/22 08:59 Last Admin: 08/03/22 08:28 Dose: 1 puffs Documented By: MG Discontinued Medications Sodium Chloride (Nss 1000ml) 1,000 mls @ 125 mls/hr IV .Q8H [facility] Stop: 09/01/22 16:44 Last Infusion: 08/03/22 00:21 Dose: 0 mls/hr Documented By: Admin: 08/02/22 17:12 Dose: 125 mls/hr Documented By: SMM Acetaminophen (Ofirmev) 1,000 mg in 100 mls @ 400 mls/hr IV NOW STA Stop: 08/02/22 17:45 Last Infusion: 08/02/22 17:52 Dose: 0 mls/hr Documented By: Admin: 08/02/22 17:34 Dose: 400 mls/hr Documented By: ZEUS Ceftriaxone Sodium 1,000 mg/ (Dextrose) 50 mls @ 100 mls/hr IV NOW STA Stop: 08/02/22 20:44 Last Infusion: 08/02/22 22:49 Dose: 0 mls/hr Documented By: Admin: 08/02/22 22:09 Dose: 100 mls/hr Documented By: PATRICIA Ioversol (Optiray 350 100ml) 85 ml IV ONCE ONE Stop: 08/02/22 18:10 Last Admin: 08/02/22 18:09 Dose: 85 ml Documented By: ROBER Medical Decision Making Differential Diagnosis Differential Diagnosis includes but is not limited to dehydration, stroke, anemia, hypoglycemia, hyponatremia, hypernatremia, urinary tract infection, pneumonia, bronchitis, sepsis, gastroenteritis, additional abdominal pathology, metabolic abnormalities and infections. Medical Records Attestation: I reviewed the patient's medical records. Home Medications Current Medication List: was personally reviewed by me Laboratory Data Attestation: I reviewed the patient's lab results. Result diagrams: 08/03/22 07:47 08/03/22 07:47 Lab Results 08/02/22 08/02/22 08/02/22 Range/Units 16:58 17:00 17:00 WBC 7.79 (4.8-10.8) K/ul RBC 4.29 (3.93-5.22) M/uL Hgb 13.5 (12.0-16.0) g/dl Hct 40.4 (34.1-44.9) % MCV 94.2 (80.0-100.0) fL MCH 31.5 (25.0-34.0) pg MCHC 33.4 (32.0-36.0) g/dL RDW Std Deviation 50.6 H (36.4-46.3) fL RDW Coeff of Terri 14.7 H (11.5-14.5) % Plt Count 168 (130-400) K/uL MPV 11.4 (9.4-12.3) fL Immature Gran % (Auto) 0.4 % Neut % (Auto) 74.1 % Lymph % (Auto) 15.0 % Allen % (Auto) 7.3 % Eos % (Auto) 2.7 % Baso % (Auto) 0.5 % Neut # (Auto) 5.77 (1.4-6.5) K/uL Lymph # (Auto) 1.17 L (1.2-3.4) K/uL Allen # (Auto) 0.57 (0.24-0.82) K/uL Eos # (Auto) 0.21 (0-0.50) K/uL Baso # (Auto) 0.04 (0-0.2) K/uL Immature Gran # (Auto) 0.03 H (0.00-0.02) K/uL Sodium 136 (136-145) mmol/L Potassium 4.5 (3.5-5.1) mmol/L Chloride 101 (98-107) mmol/L Carbon Dioxide 25 (21-32) mmol/L Anion Gap 10 (3-11) BUN 35 H (6-23) mg/dl Creatinine 1.36 H (0.6-1.2) mg/dl Est Cr Clr Drug Dosing 23.2 ml/min Est GFR ( Amer) 40.2 ml/min Est GFR (Non-Af Amer) 34.7 ml/min BUN/Creatinine Ratio 25.7 H (10-20) Glucose 204 H (70-99(Fasting)) mg/dl POC Glucose 187 H (70-99) mg/dl Calcium 9.9 (8.5-10.1) mg/dl Phosphorus (2.5-4.9) mg/dl Magnesium 1.9 (1.7-2.4) mg/dl Total Bilirubin 0.9 (0.2-1.0) mg/dl AST 22 (13-39) U/L ALT 27 (7-52) U/L Alkaline Phosphatase 77 (34-104) U/L Troponin I High Sens 33.5 H (0-14) pg/ml Total Protein 8.0 (6.0-8.3) gm/dl Albumin 4.1 (3.4-5.0) gm/dl Globulin 3.9 (2.5-4.0) gm/dl Albumin/Globulin Ratio 1.1 (0.9-2) TSH (0.300-4.500) uIu/ml Urine Color Urine Appearance (Clear) Urine pH (4.5-7.5) Ur Specific [place] (1.000-1.030) Urine Protein (Negative) Urine Glucose (UA) (Negative) Urine Ketones (Negative) Urine Blood (Negative) Urine Nitrite (Negative) Urine Bilirubin (Negative) Urine Urobilinogen (Negative) Ur Leukocyte Esterase (Negative) Urine WBC (Auto) (0-5) /hpf Urine RBC (Auto) (0-4) /hpf U Hyaline Cast (Auto) (0-5) /lpf U Epithel Cells (Auto) (0-5) /lpf Urine Bacteria (Auto) (Negative) Ur Renal Epithelial Cell Adenovirus (PCR) (NotDetected) B. pertussis DNA (PCR) (NotDetected) B.parapertussis DNA PCR (NotDetected) C. pneumoniae DNA (PCR) (NotDetected) Coronavirus OC43 (PCR) (NotDetected) Coronavirus HKU1 (PCR) (NotDetected) Coronavirus 229E (PCR) (NotDetected) SARS-CoV-2 (PCR) (NotDetected) Coronavirus NL63 (PCR) (NotDetected) Human Metapneumovir PCR (NotDetected) Influenza Type A (PCR) (NotDetected) Influenza Type B (PCR) (NotDetected) M. pneumoniae (PCR) (NotDetected) Parainfluenza 1 (PCR) (NotDetected) Parainfluenza 2 (PCR) (NotDetected) Parainfluenza 3 (PCR) (NotDetected) Parainfluenza 4 (PCR) (NotDetected) RSV (PCR) (NotDetected) Entero/Rhino (PCR) (NotDetected) 08/02/22 08/02/22 08/02/22 Range/Units 17:00 17:00 18:34 WBC (4.8-10.8) K/ul RBC (3.93-5.22) M/uL Hgb (12.0-16.0) g/dl Hct (34.1-44.9) % MCV (80.0-100.0) fL MCH (25.0-34.0) pg MCHC (32.0-36.0) g/dL RDW Std Deviation (36.4-46.3) fL RDW Coeff of Terri (11.5-14.5) % Plt Count (130-400) K/uL MPV (9.4-12.3) fL Immature Gran % (Auto) % Neut % (Auto) % Lymph % (Auto) % Allen % (Auto) % Eos % (Auto) % Baso % (Auto) % Neut # (Auto) (1.4-6.5) K/uL Lymph # (Auto) (1.2-3.4) K/uL Allen # (Auto) (0.24-0.82) K/uL Eos # (Auto) (0-0.50) K/uL Baso # (Auto) (0-0.2) K/uL Immature Gran # (Auto) (0.00-0.02) K/uL Sodium (136-145) mmol/L Potassium (3.5-5.1) mmol/L Chloride (98-107) mmol/L Carbon Dioxide (21-32) mmol/L Anion Gap (3-11) BUN (6-23) mg/dl Creatinine (0.6-1.2) mg/dl Est Cr Clr Drug Dosing ml/min Est GFR ( Amer) ml/min Est GFR (Non-Af Amer) ml/min BUN/Creatinine Ratio (10-20) Glucose (70-99(Fasting)) mg/dl POC Glucose (70-99) mg/dl Calcium (8.5-10.1) mg/dl Phosphorus 4.1 (2.5-4.9) mg/dl Magnesium (1.7-2.4) mg/dl Total Bilirubin (0.2-1.0) mg/dl AST (13-39) U/L ALT (7-52) U/L Alkaline Phosphatase (34-104) U/L Troponin I High Sens (0-14) pg/ml Total Protein (6.0-8.3) gm/dl Albumin (3.4-5.0) gm/dl Globulin (2.5-4.0) gm/dl Albumin/Globulin Ratio (0.9-2) TSH 4.469 (0.300-4.500) uIu/ml Urine Color Urine Appearance (Clear) Urine pH (4.5-7.5) Ur Specific [place] (1.000-1.030) Urine Protein (Negative) Urine Glucose (UA) (Negative) Urine Ketones (Negative) Urine Blood (Negative) Urine Nitrite (Negative) Urine Bilirubin (Negative) Urine Urobilinogen (Negative) Ur Leukocyte Esterase (Negative) Urine WBC (Auto) (0-5) /hpf Urine RBC (Auto) (0-4) /hpf U Hyaline Cast (Auto) (0-5) /lpf U Epithel Cells (Auto) (0-5) /lpf Urine Bacteria (Auto) (Negative) Ur Renal Epithelial Cell Adenovirus (PCR) Not Detected (NotDetected) B. pertussis DNA (PCR) Not Detected (NotDetected) B.parapertussis DNA PCR Not Detected (NotDetected) C. pneumoniae DNA (PCR) Not Detected (NotDetected) Coronavirus OC43 (PCR) Not Detected (NotDetected) Coronavirus HKU1 (PCR) Not Detected (NotDetected) Coronavirus 229E (PCR) Not Detected (NotDetected) SARS-CoV-2 (PCR) Not Detected (NotDetected) Coronavirus NL63 (PCR) Not Detected (NotDetected) Human Metapneumovir PCR Not Detected (NotDetected) Influenza Type A (PCR) Not Detected (NotDetected) Influenza Type B (PCR) Not Detected (NotDetected) M. pneumoniae (PCR) Not Detected (NotDetected) Parainfluenza 1 (PCR) Not Detected (NotDetected) Parainfluenza 2 (PCR) Not Detected (NotDetected) Parainfluenza 3 (PCR) Not Detected (NotDetected) Parainfluenza 4 (PCR) Not Detected (NotDetected) RSV (PCR) Not Detected (NotDetected) Entero/Rhino (PCR) Not Detected (NotDetected) 08/02/22 Range/Units 19:43 WBC (4.8-10.8) K/ul RBC (3.93-5.22) M/uL Hgb (12.0-16.0) g/dl Hct (34.1-44.9) % MCV (80.0-100.0) fL MCH (25.0-34.0) pg MCHC (32.0-36.0) g/dL RDW Std Deviation (36.4-46.3) fL RDW Coeff of Terri (11.5-14.5) % Plt Count (130-400) K/uL MPV (9.4-12.3) fL Immature Gran % (Auto) % Neut % (Auto) % Lymph % (Auto) % Allen % (Auto) % Eos % (Auto) % Baso % (Auto) % Neut # (Auto) (1.4-6.5) K/uL Lymph # (Auto) (1.2-3.4) K/uL Allen # (Auto) (0.24-0.82) K/uL Eos # (Auto) (0-0.50) K/uL Baso # (Auto) (0-0.2) K/uL Immature Gran # (Auto) (0.00-0.02) K/uL Sodium (136-145) mmol/L Potassium (3.5-5.1) mmol/L Chloride (98-107) mmol/L Carbon Dioxide (21-32) mmol/L Anion Gap (3-11) BUN (6-23) mg/dl Creatinine (0.6-1.2) mg/dl Est Cr Clr Drug Dosing ml/min Est GFR ( Amer) ml/min Est GFR (Non-Af Amer) ml/min BUN/Creatinine Ratio (10-20) Glucose (70-99(Fasting)) mg/dl POC Glucose (70-99) mg/dl Calcium (8.5-10.1) mg/dl Phosphorus (2.5-4.9) mg/dl Magnesium (1.7-2.4) mg/dl Total Bilirubin (0.2-1.0) mg/dl AST (13-39) U/L ALT (7-52) U/L Alkaline Phosphatase (34-104) U/L Troponin I High Sens (0-14) pg/ml Total Protein (6.0-8.3) gm/dl Albumin (3.4-5.0) gm/dl Globulin (2.5-4.0) gm/dl Albumin/Globulin Ratio (0.9-2) TSH (0.300-4.500) uIu/ml Urine Color Yellow Urine Appearance Cloudy A (Clear) Urine pH 6.0 (4.5-7.5) Ur Specific [place] 1.018 (1.000-1.030) Urine Protein 3+ H (Negative) Urine Glucose (UA) Negative (Negative) Urine Ketones Negative (Negative) Urine Blood 1+ H (Negative) Urine Nitrite Negative (Negative) Urine Bilirubin Negative (Negative) Urine Urobilinogen Negative (Negative) Ur Leukocyte Esterase 2+ H (Negative) Urine WBC (Auto) 10-30 H (0-5) /hpf Urine RBC (Auto) 5-10 H (0-4) /hpf U Hyaline Cast (Auto) 1-5 (0-5) /lpf U Epithel Cells (Auto) >30 H (0-5) /lpf Urine Bacteria (Auto) 1+ H (Negative) Ur Renal Epithelial Cell Not Reportable Adenovirus (PCR) (NotDetected) B. pertussis DNA (PCR) (NotDetected) B.parapertussis DNA PCR (NotDetected) C. pneumoniae DNA (PCR) (NotDetected) Coronavirus OC43 (PCR) (NotDetected) Coronavirus HKU1 (PCR) (NotDetected) Coronavirus 229E (PCR) (NotDetected) SARS-CoV-2 (PCR) (NotDetected) Coronavirus NL63 (PCR) (NotDetected) Human Metapneumovir PCR (NotDetected) Influenza Type A (PCR) (NotDetected) Influenza Type B (PCR) (NotDetected) M. pneumoniae (PCR) (NotDetected) Parainfluenza 1 (PCR) (NotDetected) Parainfluenza 2 (PCR) (NotDetected) Parainfluenza 3 (PCR) (NotDetected) Parainfluenza 4 (PCR) (NotDetected) RSV (PCR) (NotDetected) Entero/Rhino (PCR) (NotDetected) Imaging Data Radiologist's Impression: Abdomen/Pelvis CT 08/02/22 17:27 CT abd pelvis IV con only CLINICAL HISTORY: abd pain TECHNIQUE: Helical axial images of the abdomen and pelvis were obtained and displayed. Automated dose lowering techniques and/or adjustment according to patient size were utilized for this exam. This exam was performed with intravenous contrast. CT DOSE: 964.85 mGy.cm COMPARISON: Comparison is made to CT abdomen pelvis 09/18/2021 and prior renal ultrasound 09/22/2021 FINDINGS: Lower chest: Cardiomegaly is seen. Mitral annular calcifications are seen. Liver: Unremarkable. No focal lesions are seen. Gallbladder and biliary tree: No calcified gallstones. Normal caliber wall. No intra- or extrahepatic biliary ductal dilation. Pancreas: Unremarkable, no focal lesions. Spleen: Unremarkable. Adrenals: 23 mm left adrenal nodule is seen. Kidneys and ureters: A right hyperdense appearing cyst is seen measuring 17 mm in diameter. This was not well-seen on prior renal ultrasound. Bladder: The bladder is distended. Reproductive organs: Unremarkable. Bowel: Diverticulosis is seen without evidence of diverticulitis. The appendix is normal. A hiatal hernia is seen. Lymph nodes Retroperitoneal: Unremarkable. Pelvic: Unremarkable. Mesenteric: Unremarkable. Peritoneum: Normal. Vessels: Atherosclerotic calcifications are seen. Abdominal wall: A fat-containing umbilical hernia is seen. Soft tissue stranding is seen in the anterior abdominal wall. Bones: Degenerative changes in the visualized spine. Hip arthroplasty is seen on the left. IMPRESSION: 1. No acute abnormalities to explain abdominal pain. 2. Diverticulosis without diverticulitis. The appendix is normal. 3. Hyperdense cystic lesion in the right kidney. Left adrenal nodule is seen. If not previously evaluated, nonemergent adrenal/renal mass protocol CT is recommended. ACT 112: Negative or not required by law. Electronically signed by: Edgardo Wilder M.D. 08/02/2022 6:[address] 08/02/22 17:27 CT head/brain wo con CLINICAL HISTORY: ams Technique: Contiguous axial CT images of the head were acquired from the base of the skull to the vertex without intravenous contrast administration. Images were viewed in brain, subdural and bone windows. Automated dose lowering techniques and/or adjustment according to patient size were utilized for this exam. Comparison: Comparison is made to CT head 02/14/2017 Findings: Areas of decreased attenuation are present in the periventricular and subcortical white matter bilaterally consistent with small vessel ischemic disease. Generalized cerebral atrophy with commensurate enlargement of the vent ricles, sulci, and cisterns is also present. There is no acute intracranial hemorrhage or evidence of acute territorial infarction. No shift of the midline structures, mass effect, or extra-axial abnormalities are shown. Atherosclerotic calcifications are present in the intracranial segments of the internal carotid arteries. Imaged portions of the paranasal sinuses and mastoid air cells are clear. The orbits appear normal. There are no acute fractures of the calvaria or scalp swelling. Impression: No acute intracranial hemorrhage, no evidence of acute territorial infarction or other acute intracranial disease process. ACT 112: Negative or not required by law. Electronically signed by: Edgardo Wilder M.D. 08/02/2022 6:26 PM Chest X-Ray 08/02/22 18:45 XR chest 1V portable CLINICAL HISTORY: ams TECHNIQUE: Single frontal radiograph of the chest was obtained. Comparison: Comparison is made to chest radiograph 02/09/2022 FINDINGS: No lines and tubes are seen. Calcified aortic knob is seen. Left lower lung atelectasis is seen. No evidence of pleural effusion or pneumothorax. IMPRESSION: No acute chest disease. ACT 112: Negative or not required by law. Electronically signed by: Edgardo Wilder M.D. 08/02/2022 7:14 PM ECG Data Attestation: I personally reviewed and interpreted this ECG as follows: Indication: + altered mental status and + weakness Rate (beats per minute): 83 Rhythm: + normal sinus ECG Intervals/blocks: + Normal QRS and + Normal QT ECG [place]: + Normal ECG ST segments: + Nonspecific ST abnormalities MDM Narrative An order was placed for continuous cardiac monitoring. The monitor shows a rate of _78_ with _normal sinus__ rhythm. This is an 87-year-old female presents emergency department with her daughter bedside due to concern for illness and confusion. Patient obviously tremulous and ill-appearing. Labs drawn and sent, IV started, and we discussed imaging, urinalysis, and nasal swab. Patient's labs and imaging reassuring. She was started on IV fluids and did report feeling slightly improved although still did not appear well and had tremors on several rechecks. Patient's urine was abnormal and she was started on IV antibiotics for presumed evolving urinary tract infection. CT head and CT abdomen pelvis were reassuring. Patient's creatinine stable compared to prior given her history of chronic kidney disease. Patient was still not in her usual level of mentation per daughter at bedside while here. Due to concern for altered mentation, UTI, and general ill appearance, case discussed with hospitalist for additional evaluation and management. Impression & Plan AMS (altered mental status), Coarse tremors, Generalized weakness, Acute UTI (urinary tract infection), CKD (chronic kidney disease) Discharge Plan Visit Data Chief Complaint: Illness Stated Complaint: shaking, pale color ED Provider: Sandi Shah Discharge Problem: AMS (altered mental status), Coarse tremors, Generalized weakness, Acute UTI (urinary tract infection), CKD (chronic kidney disease) Patient Disposition: Admitted As Inpatient Discharge Instructions Interventions: ED Discharge Assessment Last Done: 08/02/22 22:24
[2022-08-02] MEDS ORDERED: ACETAMINOPHEN 1,000 MG/100 ML VIAL IV STA (17:31)
[2022-08-02 17:38] LABS: Albumin Globulin Ratio 1.1 (0.9-2); Albumin Level 4.1 gm/dl (3.4-5.0); BUN Creatinine Ratio 25.7 (10-20); Bilirubin,Total 0.9 mg/dl (0.2-1.0); Calcium 9.9 mg/dl (8.5-10.1); Creatinine Clr Calc Pharmacy 23.2 ml/min; Est GFR (African American) 40.2 ml/min; Est GFR (Non-African American) 34.7 ml/min; Globulin 3.9 gm/dl (2.5-4.0); Magnesium 1.9 mg/dl (1.7-2.4); Potassium 4.5 mmol/L (3.5-5.1)
[2022-08-02 17:40] LABS: Troponin I High Sensitivity 33.5 pg/ml (0-14)
[2022-08-02] MEDS ORDERED: OPTIRAY 350 100ml IV ONE (18:09)
--- NOTE | 2022-08-02 18:28 | CT Scan Report ---
CT head/brain wo con CLINICAL HISTORY: ams Technique: Contiguous axial CT images of the head were acquired from the base of the skull to the andrae fab without intravenous contrast administration. Images were viewed in brain, subdural and [facility]. Automated dose lowering techniques and/or adjustment according to patient size were utilized for this exam. Comparison: Comparison is made to CT head 02/14/2017 Findings: Areas of decreased attenuation are present in the periventricular and subcortical white matter bilate rally consistent with small vessel ischemic disease. Generalized cerebral atrophy with commensurate e nlargement of the ventricles, sulci, and cisterns is also present. There is no acute intracranial hem orrhage or evidence of acute territorial infarction. No shift of the midline structures, mass effect, or extra-axial abnormalities are shown. Atherosclerotic calcifications are present in the intracran ial segments of the internal carotid arteries. Imaged portions of the paranasal sinuses and mastoid air cells are clear. The orbits appear normal. There are no acute fractures of the calvaria or scalp swelling. Impression: No acute intracranial hemorrhage, no evidence of acute territorial infarction or other acute intracra nial disease process. ACT 112: Negative or not required by law. Electronically signed by: Edgardo Wilder M.D. 08/02/2022 6:26 PM
--- NOTE | 2022-08-02 18:42 | CT Scan Report ---
CT abd pelvis IV con only CLINICAL HISTORY: abd pain TECHNIQUE: Helical axial images of the abdomen and pelvis were obtained and displayed. Automated dose lowering techniques and/or adjustment according to patient size were utilized for this exam. This e xam was performed with intravenous contrast. CT DOSE: 964.85 mGy.cm COMPARISON: Comparison is made to CT abdomen pelvis 09/18/2021 and prior renal ultrasound 09/22/2021 FINDINGS: Lower chest: Cardiomegaly is seen. Mitral annular calcifications are seen. Liver: Unremarkable. No focal lesions are seen. Gallbladder and biliary tree: No calcified gallstones. Normal caliber wall. No intra- or extrahepatic biliary ductal dilation. Pancreas: Unremarkable, no focal lesions. Spleen: Unremarkable. Adrenals: 23 mm left adrenal nodule is seen. Kidneys and ureters: A right hyperdense appearing cyst is seen measuring 17 mm in diameter. This was not well-seen on prior renal ultrasound. Bladder: The bladder is distended. Reproductive organs: Unremarkable. Bowel: Diverticulosis is seen without evidence of diverticulitis. The appendix is normal. A hiatal he rnia is seen. Lymph nodes Retroperitoneal: Unremarkable. Pelvic: Unremarkable. Mesenteric: Unremarkable. Peritoneum: Normal. Vessels: Atherosclerotic calcifications are seen. Abdominal wall: A fat-containing umbilical hernia is seen. Soft tissue stranding is seen in the anter ior abdominal wall. Bones: Degenerative changes in the visualized spine. Hip arthroplasty is seen on the left. IMPRESSION: 1. No acute abnormalities to explain abdominal pain. 2. Diverticulosis without diverticulitis. The appendix is normal. 3. Hyperdense cystic lesion in the right kidney. Left adrenal nodule is seen. If not previously eval uated, nonemergent adrenal/renal mass protocol CT is recommended. ACT 112: Negative or not required by law. Electronically signed by: Edgardo Wilder M.D. 08/02/2022 6:40 PM
--- NOTE | 2022-08-02 19:16 | XRay Report ---
XR chest 1V portable CLINICAL HISTORY: ams TECHNIQUE: Single frontal radiograph of the chest was obtained. Comparison: Comparison is made to chest radiograph 02/09/2022 FINDINGS: No lines and tubes are seen. Calcified aortic knob is seen. Left lower lung atelectasis is seen. No e vidence of pleural effusion or pneumothorax. IMPRESSION: No acute chest disease. ACT 112: Negative or not required by law. Electronically signed by: Edgardo Wilder M.D. 08/02/2022 7:14 PM
[2022-08-02 19:32] LABS: Adenovirus PCR Not Detected (NotDetected); Bordetella parapertussis PCR Not Detected (NotDetected); Bordetella pertussis PCR Not Detected (NotDetected); Chlamydia pneumoniae PCR Not Detected (NotDetected); Coronavirus 229E PCR Not Detected (NotDetected); Coronavirus CoV-2 (COVID19)PCR Not Detected (NotDetected); Coronavirus HKU1 PCR Not Detected (NotDetected); Coronavirus NL63 PCR Not Detected (NotDetected); Coronavirus OC43PCR Not Detected (NotDetected); Human Metapneumovirus PCR Not Detected (NotDetected); Influenza A PCR Not Detected (NotDetected); Influenza B PCR Not Detected (NotDetected); Mycoplasma pneumoniae PCR Not Detected (NotDetected); Parainfluenza Virus 1 PCR Not Detected (NotDetected); Parainfluenza Virus 2 PCR Not Detected (NotDetected); Parainfluenza Virus 3 PCR Not Detected (NotDetected); Parainfluenza Virus 4 PCR Not Detected (NotDetected); Respiratory Syncytial VirusPCR Not Detected (NotDetected); Rhinovirus/Enterovirus PCR Not Detected (NotDetected)
[2022-08-02 20:01] LABS: Appearance Urine Cloudy (Clear); Bacteria Urine Automated 1+ (Negative); Bilirubin Urine Negative (Negative); Blood Urine 1+ (Negative); Color Urine Yellow; Epithelial Cell Urine Auto >30 /lpf (0-5); Glucose Urine UA Negative (Negative); Ketones Urine Negative (Negative); Leukocyte Esterase Urine 2+ (Negative); Nitrite Urine Negative (Negative); Protein Urine 3+ (Negative); Specific Gravity Urine 1.018 (1.000-1.030); Urobilinogen Urine Negative (Negative)
[2022-08-02] MEDS ORDERED: cefTRIAXone SODIUM 1,000 MG in DEXTROSE 5% AD-VAN 50 ML IV STA (20:15)
--- NOTE | 2022-08-02 20:58 | History & Physical Report ---
Date of Service August 02, 2022 Assessment & Plan (1) AMS (altered mental status): Plan: Patient with some confusion, complaint of abdominal pain. UA is suggestive of infection. Remainder of workup is largely normal to include normal CBC, electrolytes. Renal function is near baseline. -Follow urine culture -Frequent orientation (2) Acute UTI (urinary tract infection): Plan: UA suggestive of infection. Patient is afebrile, HD stable. Prior urine culture from 01/2022 positive for simeon-sensitive E.Coli -Follow culuture -Ceftriaxone 1gm IV daily -Tylenol as needed for pain or fever (3) Atrial fibrillation: Plan: Rate controlled. Patient anticoagulated on Apixaban 2.5mg po BID -Continue Carvedilol 3.125mg po BID -Continue Apixaban 2.5mg po BID (4) Chronic kidney disease, stage IV (severe): Plan: BUN and Cr are near baseline -Avoid nephrotoxic agents -Renal dosing where needed -Repeat chemistry in AM (5) Congestive heart failure: Plan: Patient with severe pulmonary hypertension with PASP of 95-100. She has moderate to severe TR, thickened mitral valve with MS and mild MR. EF of >70% per echo in 2020. Presently appears compensated. No cough, SOB or edema -Continue Carvedilol -Monitor (6) COPD (chronic obstructive pulmonary disease): Plan: Chronic. No cough, SOB or wheeze -Continue Spiriva, Symbicort -Albuterol PRN -Supplemental O2 as needed (7) CAD (coronary artery disease): Plan: Chronic. Stable. Patient denies chest pain. She has mildly elevated troponin of 33 in setting of CKD -Continue Carvedilol 3.125mg po BID -Continue Atorvastatin 40mg po daily -Repeat troponin with AM labs (8) Hypertension: Plan: Blood pressure elevated presently at 180/100 -Continue Carvedilol -Monitor (9) Hyperlipidemia: Plan: Chronic. Stable -Continue Simvastatin 40mg po qHS (10) Diabetes mellitus, type 2: Plan: Overall well controlled. Blood sugar mildly elevated today, POC glucose = 187. Last HgbA1C = 7.1 on 04/21/22 -Lantus 4u BID -ISS -Goal blood sugar 110- 160 -Continue Gabapentin 600mg po TID (11) GERD (gastroesophageal reflux disease): Plan: Chronic. Stable -Continue Protonix 40mg po BID -Continue Pepcid 20mg po qHS History of Present Illness Chief Complaint: weakness Primary Care Provider: Jeyson Peña MD Mrs. Stokes is an 87yo female with multiple medical comorbidities. She presently lives with her younger sister and helps to care for her and is overall fairly active and independent. Around 13:15 patient texted her daughter asking her to come over because she didn't feel well. Daughter states that the patient was shaky and pale when she arrived and was having a difficult time articulating what her symptoms were. She did have some abdominal discomfort mostly in mid- abdomen and lower suprapubic region. No report of fever, chills, cough, SOB, chest pain. No nausea or vomiting. No diarrhea. She denies dizziness, numbness/tingling/weakness. No urinary complaints. No additional complaints at this time. In the ER she is afebrile, hypertensive, otherwise HD stable. NAD. Her daughter is at bedside and assists with questioning. ER Course: Tylenol Ceftriaxone Allergies Allergy/AdvReac Type Severity Reaction Status Date / Time Sulfa (Sulfonamide Allergy Severe ANAPHYLAXIS; Verified 08/02/22 17:19 Antibiotics) TAKES AMARYL W/O REACTION cephalexin [From Keflex] Allergy Intermediate Headahce; Verified 08/02/22 17:19 Nausea; Rash nystatin Allergy Intermediate Wheezing Verified 08/02/22 17:19 amoxicillin [From Augmentin] Allergy Unknown CAN'T Verified 08/02/22 17:19 REMEMBER clavulanic acid Allergy Unknown CAN'T Verified 08/02/22 17:19 [From Augmentin] REMEMBER thyroid, pork Allergy Unknown "ALL Verified 08/02/22 17:19 THYROID AGENTS"-PT UNSURE OF REACTION Cephalosporins AdvReac Intermediate KEFLEX Verified 08/02/22 17:19 ALLERGY -NAUSEA Home Medications Medication Instructions Recorded Confirmed Type glucosamine-chondroitin 250 mg-200 2 tab PO BID 05/13/18 08/02/22 History mg tablet (Osteo Bi-Flex) levalbuterol HCl 1.25 mg/3 mL 1.25 mg (3 mL) inhalation Q4H PRN 07/28/19 08/02/22 Rx solution for nebulization shortness of breath or wheezing #90 mL ferrous sulfate 325 mg (65 mg 325 mg PO QAM 06/24/20 08/02/22 History iron) tablet travoprost 0.004 % eye drops 1 drp OPB HS 11/13/20 08/02/22 History (Travatan Z) TechLITE Lancets 30 gauge (lancets) #400 ea 12/26/20 07/29/22 Rx flash glucose scanning reader 07/31/21 07/29/22 History (FreeStyle Jelly 2 North Powder) flash glucose sensor (FreeStyle 07/31/21 07/29/22 History Jelly 2 Sensor kit) apixaban 2.5 mg tablet (Eliquis) 2.5 mg PO BID #180 tabs 08/18/21 08/02/22 Rx budesonide-formoterol HFA 160 2 puff inhalation BID #3 Inhalers 08/18/21 08/02/22 Rx mcg-4.5 mcg/actuation aerosol inhaler (Symbicort) albuterol sulfate 90 mcg/actuation 2 puff inhalation Q6H PRN 09/04/21 08/02/22 Rx aerosol inhaler shortness of breath or wheezing #3 Inhalers carvedilol 3.125 mg tablet 3.125 mg PO BID #180 tabs 09/24/21 08/02/22 Rx blood sugar diagnostic 09/26/21 07/29/22 History Portable Oxygen #1 ea 10/17/21 07/29/22 Rx allopurinol 100 mg tablet 200 mg PO QAM #180 tabs 12/19/21 08/02/22 Rx BD Ultra-Fine Vielka Pen Needle 32 #400 ea 01/15/22 07/29/22 Rx gauge x 5/32" (pen needle, diabetic) calcium carbonate 600 mg calcium 600 mg PO QAM 02/04/22 08/02/22 History (1,500 mg) tablet (Calcium) famotidine 20 mg tablet (Acid 20 mg PO HS 02/04/22 08/02/22 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 (famotidine)) pantoprazole 40 mg tablet,delayed 40 mg PO BID 02/04/22 08/02/22 History release tiotropium bromide 18 mcg capsule 1 cap inhalation QAM 02/04/22 08/02/22 History with inhalation device (Spiriva with HandiHaler) Novolog Flexpen U-100 Insulin 100 12 - 20 unit (0.12 - 0.2 mL) 05/22/22 08/02/22 Rx unit/mL (3 mL) subcutaneous subcut TID 90 days #60 mL (insulin aspart U-100) furosemide 40 mg tablet (Lasix) 40 mg PO Q OTHER DAY PRN Edema #45 06/08/22 08/02/22 Rx tabs insulin glargine 100 unit/mL (3 8 unit (0.08 mL) subcut HS #1 box 07/20/22 08/02/22 Rx mL) subcutaneous pen (Lantus Solostar U-100 Insulin) simvastatin 40 mg tablet 40 mg PO HS #90 tabs 07/29/22 08/02/22 Rx gabapentin 600 mg tablet 600 mg PO TID 08/02/22 08/02/22 History Past Med/Surg History Medical History Acute exacerbation of chronic obstructive pulmonary disease Adult failure to thrive Adverse reaction to anesthetic agent Hard to wake up Anemia Asthma CAD (coronary artery disease) NON-OBSTRUCTIVE Cardiorenal syndrome Chronic anticoagulation Chronic back pain RLE RADICULOPATHY Chronic hypoxemic respiratory failure Chronic kidney disease, stage III (moderate) Congestive heart failure DIASTOLIC COPD (chronic obstructive pulmonary disease) Decreased oral intake Depression Diabetes mellitus, type 2 Dyspnea on exertion GERD (gastroesophageal reflux disease) CONTROLLED Glaucoma Gout Headache TEMPORAL BIOPSY DONE IN 2018 Hiatal hernia History of central retinal artery occlusion History of diverticulitis History of hypothyroidism EUTHYROID ON MORE RECENT TESTING Hx of gout Hyperlipidemia Hypertension Hyponatremia Lumbar spinal stenosis Nausea Nocturnal hypoxemia On home oxygen therapy WEARS 2L O2 "MOST OF THE TIME" Osteoarthritis Pulmonary HTN SEVERE PULMONARY HTN (RVSP > 60MMHG) Pulmonary hypertension Pulmonary nodule Seizure 18 YEARS AGO; NO ISSUES SINCE Tremor ESSENTIAL TREMOR (HEAD) Valvular disease MODERATE TO SEVERE TR. MODERATE AV SCLEROSIS Vitamin D deficiency Surgical History History of cardiac cath 2008 NO STENTS History of cataract surgery RT/LEFT History of dacryocystorhinostomy bilateral History of dilation and curettage History of surgery CYSTOCELE REPAIR RECTOCELE REPAIR History of temporal artery biopsy 02/08/14= MAC SEDATION WITHOUT ISSUES AT [facility] History of tooth extraction History of total hip arthroplasty (~07/16/09) LEFT Family History Father , Age 60 from [place] Myocardial infarction Diabetes Hypertension Grandfather Stroke Mother Cancer Hearing loss Allergies Aunt Hearing loss Other Asthma Coronary heart disease Heart disease No family history of adverse response to anesthesia No family history of bleeding disorder Denies family history of Ovarian cancer Prostate cancer Breast cancer Lung cancer Colorectal cancer Social History Smoking Status: Never smoker Second Hand Exposure: No; Hx Alcohol Use: No Hx Substance Use: No Preferred Language: Syrian Communication Ability: Effective Visual Impairment: No Limitations Hearing Ability: Normal Certified Medical Biller Required: No Beliefs That Will Affect Care: None marital status: / Current Living Situation: Alone Current Living Situation Comment: pt is sister's caregiver current occupational status: retired How many Children do You have: 2 Feels Safe at Home: Yes Childhood Exposure to Second-Hand Smoke: No caffeine: Yes Dental Care, Regularly: Yes Physical Activity Frequency: Does not Exercise Seatbelt Use: always Sunscreen Use: Yes Assistive Devices: Cane, Oxygen - Continuous and Walker Review of Systems Review of Systems: All systems reviewed & are unremarkable except as noted in HPI & below Physical Exam Physical Exam: General: patient resting comfortably, NAD, non-toxic in appearance, oriented to self Skin: warm, dry, intact, no rashes or lesions HEENT: NC/AT, PERRL, EOMI, anicteric sclera, conjunctiva without injection, external ear normal to inspection and nontender, nares patent, moist mucus membranes, dentition intact, no oropharyngeal lesions, neck supple, trachea midline, no LAD, no thyromegaly, no JVD Heart: +S1/S2, regular, no m/r/g Lungs: equal air entry bilaterally, no rales/rhonchi/wheezes Abd: +BS, soft, tenderness in suprapubic region, no rebound/guarding/peritonitis Ext: warm, 2+ pulses in UE/LE bilaterally, no clubbing/cyanosis or edema Neuro: nonfocal, patient AA&O x 4, speech intact, no facial droop, moving all extremities on command with equal strength 5/5 Results & Data Results & Data ([facility]) Vital Signs (Past 12 Hours) Vital Signs Temp Pulse Pulse Resp BP BP Pulse Ox 08/02/22 18:36 74 24 180/100 H 94 08/02/22 16:04 36.2 C L 85 18 167/102 H 98 O2 Del Method O2 Flow Rate 08/02/22 18:36 Nasal Cannula 2 08/02/22 16:04 Room Air Laboratory Results Laboratory Results WBC 7.79 K/ul (4.8-10.8) 08/02/22 17:00 RBC 4.29 M/uL (3.93-5.22) 08/02/22 17:00 Hgb 13.5 g/dl (12.0-16.0) 08/02/22 17:00 Hct 40.4 % (34.1-44.9) 08/02/22 17:00 MCV 94.2 fL (80.0-100.0) 08/02/22 17:00 MCH 31.5 pg (25.0-34.0) 08/02/22 17:00 MCHC 33.4 g/dL (32.0-36.0) 08/02/22 17:00 RDW Std Deviation 50.6 fL (36.4-46.3) H 08/02/22 17:00 RDW Coeff of Terri 14.7 % (11.5-14.5) H 08/02/22 17:00 Plt Count 168 K/uL (130-400) 08/02/22 17:00 MPV 11.4 fL (9.4-12.3) 08/02/22 17:00 Immature Gran % (Auto) 0.4 % 08/02/22 17:00 Neut % (Auto) 74.1 % 08/02/22 17:00 Lymph % (Auto) 15.0 % 08/02/22 17:00 [place] % (Auto) 7.3 % 08/02/22 17:00 Eos % (Auto) 2.7 % 08/02/22 17:00 Baso % (Auto) 0.5 % 08/02/22 17:00 Neut # (Auto) 5.77 K/uL (1.4-6.5) 08/02/22 17:00 Lymph # (Auto) 1.17 K/uL (1.2-3.4) L 08/02/22 17:00 [place] # (Auto) 0.57 K/uL (0.24-0.82) 08/02/22 17:00 Eos # (Auto) 0.21 K/uL (0-0.50) 08/02/22 17:00 Baso # (Auto) 0.04 K/uL (0-0.2) 08/02/22 17:00 Immature Gran # (Auto) 0.03 K/uL (0.00-0.02) H 08/02/22 17:00 Sodium 136 mmol/L (136-145) 08/02/22 17:00 Potassium 4.5 mmol/L (3.5-5.1) 08/02/22 17:00 Chloride 101 mmol/L (98-107) 08/02/22 17:00 Carbon Dioxide 25 mmol/L (21-32) 08/02/22 17:00 Anion Gap 10 (3-11) 08/02/22 17:00 BUN 35 mg/dl (6-23) H 08/02/22 17:00 Creatinine 1.36 mg/dl (0.6-1.2) H 08/02/22 17:00 Est Cr Clr Drug Dosing 23.2 ml/min 08/02/22 17:00 Est GFR ( Amer) 40.2 ml/min 08/02/22 17:00 Est GFR (Non-Af Amer) 34.7 ml/min 08/02/22 17:00 BUN/Creatinine Ratio 25.7 (10-20) H 08/02/22 17:00 Glucose 204 mg/dl (70-99(Fasting)) H 08/02/22 17:00 POC Glucose 187 mg/dl (70-99) H 08/02/22 16:58 Calcium 9.9 mg/dl (8.5-10.1) 08/02/22 17:00 Magnesium 1.9 mg/dl (1.7-2.4) 08/02/22 17:00 Total Bilirubin 0.9 mg/dl (0.2-1.0) 08/02/22 17:00 AST 22 U/L (13-39) 08/02/22 17:00 ALT 27 U/L (7-52) 08/02/22 17:00 Alkaline Phosphatase 77 U/L (34-104) 08/02/22 17:00 Troponin I High Sens 33.5 pg/ml (0-14) H 08/02/22 17:00 Total Protein 8.0 gm/dl (6.0-8.3) 08/02/22 17:00 Albumin 4.1 gm/dl (3.4-5.0) 08/02/22 17:00 Globulin 3.9 gm/dl (2.5-4.0) 08/02/22 17:00 Albumin/Globulin Ratio 1.1 (0.9-2) 08/02/22 17:00 TSH 4.469 uIu/ml (0.300-4.500) 08/02/22 17:00 Urine Color Yellow 08/02/22 19:43 Urine Appearance Cloudy (Clear) A 08/02/22 19:43 Urine pH 6.0 (4.5-7.5) 08/02/22 19:43 Ur Specific [place] 1.018 (1.000-1.030) 08/02/22 19:43 Urine Protein 3+ (Negative) H 08/02/22 19:43 Urine Glucose (UA) Negative (Negative) 08/02/22 19:43 Urine Ketones Negative (Negative) 08/02/22 19:43 Urine Blood 1+ (Negative) H 08/02/22 19:43 Urine Nitrite Negative (Negative) 08/02/22 19:43 Urine Bilirubin Negative (Negative) 08/02/22 19:43 Urine Urobilinogen Negative (Negative) 08/02/22 19:43 Ur Leukocyte Esterase 2+ (Negative) H 08/02/22 19:43 Urine WBC (Auto) 10-30 /hpf (0-5) H 08/02/22 19:43 Urine RBC (Auto) 5-10 /hpf (0-4) H 08/02/22 19:43 U Hyaline Cast (Auto) 1-5 /lpf (0-5) 08/02/22 19:43 U Epithel Cells (Auto) >30 /lpf (0-5) H 08/02/22 19:43 Urine Bacteria (Auto) 1+ (Negative) H 08/02/22 19:43 Ur Renal Epithelial Cell Not Reportable 08/02/22 19:43 Adenovirus (PCR) Not Detected (NotDetected) 08/02/22 18:34 B. pertussis DNA (PCR) Not Detected (NotDetected) 08/02/22 18:34 B.parapertussis DNA PCR Not Detected (NotDetected) 08/02/22 18:34 C. pneumoniae DNA (PCR) Not Detected (NotDetected) 08/02/22 18:34 Coronavirus OC43 (PCR) Not Detected (NotDetected) 08/02/22 18:34 Coronavirus HKU1 (PCR) Not Detected (NotDetected) 08/02/22 18:34 Coronavirus 229E (PCR) Not Detected (NotDetected) 08/02/22 18:34 SARS-CoV-2 (PCR) Not Detected (NotDetected) 08/02/22 18:34 Coronavirus NL63 (PCR) Not Detected (NotDetected) 08/02/22 18:34 Human Metapneumovir PCR Not Detected (NotDetected) 08/02/22 18:34 Influenza Type A (PCR) Not Detected (NotDetected) 08/02/22 18:34 Influenza Type B (PCR) Not Detected (NotDetected) 08/02/22 18:34 M. pneumoniae (PCR) Not Detected (NotDetected) 08/02/22 18:34 Parainfluenza 1 (PCR) Not Detected (NotDetected) 08/02/22 18:34 Parainfluenza 2 (PCR) Not Detected (NotDetected) 08/02/22 18:34 Parainfluenza 3 (PCR) Not Detected (NotDetected) 08/02/22 18:34 Parainfluenza 4 (PCR) Not Detected (NotDetected) 08/02/22 18:34 RSV (PCR) Not Detected (NotDetected) 08/02/22 18:34 Entero/Rhino (PCR) Not Detected (NotDetected) 08/02/22 18:34 Impressions Abdomen/Pelvis CT 08/02/22 17:27 CT abd pelvis IV con only CLINICAL HISTORY: abd pain TECHNIQUE: Helical axial images of the abdomen and pelvis were obtained and displayed. Automated dose lowering techniques and/or adjustment according to patient size were utilized for this exam. This exam was performed with intravenous contrast. CT DOSE: 964.85 mGy.cm COMPARISON: Comparison is made to CT abdomen pelvis 09/18/2021 and prior renal ultrasound 09/22/2021 FINDINGS: Lower chest: Cardiomegaly is seen. Mitral annular calcifications are seen. Liver: Unremarkable. No focal lesions are seen. Gallbladder and biliary tree: No calcified gallstones. Normal caliber wall. No intra- or extrahepatic biliary ductal dilation. Pancreas: Unremarkable, no focal lesions. Spleen: Unremarkable. Adrenals: 23 mm left adrenal nodule is seen. Kidneys and ureters: A right hyperdense appearing cyst is seen measuring 17 mm in diameter. This was not well-seen on prior renal ultrasound. Bladder: The bladder is distended. Reproductive organs: Unremarkable. Bowel: Diverticulosis is seen without evidence of diverticulitis. The appendix is normal. A hiatal hernia is seen. Lymph nodes Retroperitoneal: Unremarkable. Pelvic: Unremarkable. Mesenteric: Unremarkable. Peritoneum: Normal. Vessels: Atherosclerotic calcifications are seen. Abdominal wall: A fat-containing umbilical hernia is seen. Soft tissue stranding is seen in the anterior abdominal wall. Bones: Degenerative changes in the visualized spine. Hip arthroplasty is seen on the left. IMPRESSION: 1. No acute abnormalities to explain abdominal pain. 2. Diverticulosis without diverticulitis. The appendix is normal. 3. Hyperdense cystic lesion in the right kidney. Left adrenal nodule is seen. If not previously evaluated, nonemergent adrenal/renal mass protocol CT is recommended. ACT 112: Negative or not required by law. Electronically signed by: Edgardo Wilder M.D. 08/02/2022 6:[address] 08/02/22 17:27 CT head/brain wo con CLINICAL HISTORY: ams Technique: Contiguous axial CT images of the head were acquired from the base of the skull to the vertex without intravenous contrast administration. Images were viewed in brain, subdural and bone windows. Automated dose lowering techniques and/or adjustment according to patient size were utilized for this exam. Comparison: Comparison is made to CT head 02/14/2017 Findings: Areas of decreased attenuation are present in the periventricular and subcortical white matter bilaterally consistent with small vessel ischemic disease. Generalized cerebral atrophy with commensurate enlargement of the ventricles, sulci, and cisterns is also present. There is no acute intracranial hemorrhage or evidence of acute territorial infarction. No shift of the midline structures, mass effect, or extra-axial abnormalities are shown. Atherosclerotic calcifications are present in the intracranial segments of the internal carotid arteries. Imaged portions of the paranasal sinuses and mastoid air cells are clear. The orbits appear normal. There are no acute fractures of the calvaria or scalp swelling. Impression: No acute intracranial hemorrhage, no evidence of acute territorial infarction or other acute intracranial disease process. ACT 112: Negative or not required by law. Electronically signed by: Edgardo Wilder M.D. 08/02/2022 6:26 PM Chest X-Ray 08/02/22 18:45 XR chest 1V portable CLINICAL HISTORY: ams TECHNIQUE: Single frontal radiograph of the chest was obtained. Comparison: Comparison is made to chest radiograph 02/09/2022 FINDINGS: No lines and tubes are seen. Calcified aortic knob is seen. Left lower lung atelectasis is seen. No evidence of pleural effusion or pneumothorax. IMPRESSION: No acute chest disease. ACT 112: Negative or not required by law. Electronically signed by: Edgardo Wilder M.D. 08/02/2022 7:14 PM PG Care Time/CCT Total # of Minutes Spent Total Time Spent with Patient: Total time spent is greater than 50% in coordination of care (as documented) at patient's floor/unit and/or counseling patient: Coding Level of Care Code INT OBSERVATION CARE 70M LVL 3 Diagnoses AMS (altered mental status) R41.82 Acute UTI (urinary tract infection) N39.0 Atrial fibrillation I48.91 Chronic kidney disease, stage IV (severe) N18.4 Congestive heart failure I50.9 COPD (chronic obstructive pulmonary disease) J44.9 CAD (coronary artery disease) I25.10 Hypertension I10 Hyperlipidemia E78.5 Diabetes mellitus, type 2 E11.9 GERD (gastroesophageal reflux disease) K21.9
[2022-08-02] MEDS ORDERED: ACETAMINOPHEN 325 MG TAB PO PRN (22:59)
[2022-08-02] MEDS ORDERED: ALBUTEROL HFA 8 GM INHALER INH PRN (22:59)
[2022-08-02] MEDS ORDERED: DEXTROSE 50% 50 ML SYRINGE IV PRN (22:59)
[2022-08-02] MEDS ORDERED: GLUCOSE 40% GEL 15 GM TUBE PO PRN (22:59)
[2022-08-02] MEDS ORDERED: GLUCOSE 10 TAB/TUBE PO PRN (22:59)
[2022-08-02] MEDS ORDERED: GLUCAGON FOR INJ 1 MG VIAL SQ PRN (22:59)
[2022-08-02] MEDS ORDERED: CARBOHYDRATES FOR HYPOGLYCEMIA PO PRN (22:59)
[2022-08-02] MEDS: PANTOprazole 40 MG TAB PO SCH (23:50)
[2022-08-02] MEDS: TRAVOPROST Z 0.004% OPH SOLN 2.5 ML BTL OPB SCH (23:50)
[2022-08-02] MEDS: GABAPENTIN 600 MG TAB PO SCH (23:50)
[2022-08-02] MEDS: FAMOTIDINE 20 MG TAB PO SCH (23:51)
[2022-08-02] MEDS: SIMVASTATIN 40 MG TAB PO SCH (23:51)
[2022-08-02] MEDS: APIXABAN 2.5 MG TAB PO SCH (23:51)
[2022-08-02] MEDS: carvediloL 3.125 MG TAB PO SCH (23:51)
[2022-08-03] MEDS: INSULIN ASPART PER UNIT SC SCH ×5 (00:02→20:22)
[2022-08-03] MEDS: LANTUS PER UNIT CHARGE SQ SCH ×3 (00:03→20:21)
[2022-08-03] MEDS: carvediloL 3.125 MG TAB PO SCH ×2 (08:27→20:02)
[2022-08-03] MEDS: APIXABAN 2.5 MG TAB PO SCH ×2 (08:27→20:02)
[2022-08-03] MEDS: PANTOprazole 40 MG TAB PO SCH ×2 (08:28→20:01)
[2022-08-03] MEDS: GABAPENTIN 600 MG TAB PO SCH ×3 (08:28→20:01)
[2022-08-03] MEDS: allopurinoL 100 MG TAB PO SCH (08:28)
[2022-08-03] MEDS: UMECLIDINIUM BROMIDE 62.5MCG/BLISTER 7 PUFFS/INHALER INH SCH (08:28)
[2022-08-03] MEDS: FLUTICASONE/VILANTEROL 100/25MCG 14 PUFFS/INHALER INH SCH (08:29)
[2022-08-03 08:30] LABS: Hematocrit (blood only) 37.6 % (34.1-44.9); Hemoglobin 12.6 g/dl (12.0-16.0); Mean Corpuscular Hemoglobin 31.2 pg (25.0-34.0); Mean Corpuscular Hgb Conc 33.5 g/dL (32.0-36.0); Mean Corpuscular Volume 93.1 fL (80.0-100.0); Mean Platelet Volume 11.8 fL (9.4-12.3); Platelet Count 151 K/uL (130-400); RDW Coefficient of Variation 14.3 % (11.5-14.5); RDW Standard Deviation 49.1 fL (36.4-46.3); Red Blood Count 4.04 M/uL (3.93-5.22); White Blood Count 8.52 K/ul (4.8-10.8)
[2022-08-03 09:52] LABS: BUN Creatinine Ratio 23.1 (10-20); Calcium 8.9 mg/dl (8.5-10.1); Creatinine Clr Calc Pharmacy 21.1 ml/min; Est GFR (African American) 37.8 ml/min; Est GFR (Non-African American) 32.6 ml/min; Potassium 3.9 mmol/L (3.5-5.1)
--- NOTE | 2022-08-03 12:05 | Hospitalist Progress Note ---
Date of Service August 03, 2022 Assessment & Plan (1) AMS (altered mental status): Plan: acute metabolic encephalopathy - presumed. etiology? had abd pain last pm and this am - CT a/p without acute findings. ?UTI as cause. other cause? mental status back to baseline today. if mental status worsens again consider MRI brain follow. (2) Acute UTI (urinary tract infection): Plan: ?UTI. urine culture pending. cont rocephin in meantime. (3) Abdominal pain: Plan: mainly chronic issue CT a/p yesterday evening without acute findings etiology of pain?? check KUB x-ray - assess fecal load/rule out constipation if pain is not bowel related - due to UTI? other? (4) Atrial fibrillation: Plan: -Continue Carvedilol 3.125mg po BID -Continue Apixaban 2.5mg po BID controlled (5) Chronic kidney disease, stage IV (severe): Plan: baseline CrCl 20s BMP today stable check BMP in am (6) Congestive heart failure: Plan: chronic HFpEF - compensated cont coreg (7) COPD (chronic obstructive pulmonary disease): Plan: L basilar rales on exam - repeat cxr, r/o developing pneumonia cont home inhalers cont NC O2 (8) CAD (coronary artery disease): Plan: minimally elevated troponin repeat HS trop in am no ischemic symptoms nothing to suggest ACS -Continue Carvedilol 3.125mg po BID -Continue Atorvastatin 40mg po daily (9) Hypertension: Plan: BPs had been elevated - now improved Continue Carvedilol (10) Hyperlipidemia: Plan: Continue Simvastatin 40mg po qHS (11) Diabetes mellitus, type 2: Plan: Last HgbA1C = 7.1 on 04/21/22 Cont Lantus 4u BID Cont novolog (12) GERD (gastroesophageal reflux disease): Plan: Chronic. Stable -Continue Protonix 40mg po BID -Continue Pepcid 20mg po qHS (13) Chronic hypoxemic respiratory failure: Plan: 2nd to #13 stable O2 sats cont NC O2 (14) Pulmonary hypertension: Plan: severe 2nd to COPD? other? stable O2 sats Plan obtain PT consult updated pt's grand-daughter Genevieve observe again overnight Admission and Anticipated Discharge Date Admission Date: August 02, 2022 Subjective during the visit the patient was awake/alert her brother was visiting her she reported feeling well she denied any specific cough or congestion no urinary symptoms she goes on to talk about how she has previously seen [facility] for prior GI issues she endorses abdominal pain for "some time" first she reported the pain was left-sided, then she mentioned the umbilical area, then finally the right side of abdomen denies that eating makes the pain worse Review of Systems Review of Systems: gen - no fever or chills HENT - denies congestion, sore throat pulm - no dyspnea at rest or cough GI - no N/V - just mild, chronic, vague abd pain Physical Exam Physical Exam: gen - NAD, pleasant, seems fairly oriented and history is cohesive mouth - MMM neck - no JVD heart - irregular, s1 s2 lungs - L basilar focal rales, slightly cleared with coughing; no wheezing; no increased work of breathing abd - soft NT ND BS+ ext - no edema, pulses 2+ b/l psych - a/o x 3 Results & Data Results & Data ([facility]) Vital Signs (Past 12 Hours) Vital Signs Temp Pulse Resp BP BP Pulse Ox O2 Del Method 08/03/22 10:59 36.4 C L 75 18 143/85 H 96 Room Air 08/03/22 07:54 36.4 C L 73 130/79 95 Nasal Cannula 08/03/22 07:46 Room Air 08/03/22 07:33 36.3 C L 69 18 108/63 91 Room Air 08/03/22 01:25 65 154/84 H 94 Nasal Cannula O2 Flow Rate 08/03/22 10:59 08/03/22 07:54 08/03/22 07:46 08/03/22 07:33 08/03/22 01:25 2 Laboratory Results Laboratory Results - last 24 hr 08/02/22 08/02/22 08/02/22 16:58 17:00 17:00 WBC 7.79 RBC 4.29 Hgb 13.5 Hct 40.4 MCV 94.2 MCH 31.5 MCHC 33.4 RDW Std Deviation 50.6 H RDW Coeff of Terri 14.7 H Plt Count 168 MPV 11.4 Immature Gran % (Auto) 0.4 Neut % (Auto) 74.1 Lymph % (Auto) 15.0 [place] % (Auto) 7.3 Eos % (Auto) 2.7 Baso % (Auto) 0.5 Neut # (Auto) 5.77 Lymph # (Auto) 1.[address] # (Auto) 0.57 Eos # (Auto) 0.21 Baso # (Auto) 0.04 Immature Gran # (Auto) 0.03 H Sodium 136 Potassium 4.5 Chloride 101 Carbon Dioxide 25 Anion Gap 10 BUN 35 H Creatinine 1.36 H Est Cr Clr Drug Dosing 23.2 Est GFR ( Amer) 40.2 Est GFR (Non-Af Amer) 34.7 BUN/Creatinine Ratio 25.7 H Glucose 204 H POC Glucose 187 H Calcium 9.9 Phosphorus Magnesium 1.9 Total Bilirubin 0.9 AST 22 ALT 27 Alkaline Phosphatase 77 Troponin I High Sens 33.5 H Total Protein 8.0 Albumin 4.1 Globulin 3.9 Albumin/Globulin Ratio 1.1 TSH Urine Color Urine Appearance Urine pH Ur Specific [place] Urine Protein Urine Glucose (UA) Urine Ketones Urine Blood Urine Nitrite Urine Bilirubin Urine Urobilinogen Ur Leukocyte Esterase Urine WBC (Auto) Urine RBC (Auto) U Hyaline Cast (Auto) U Epithel Cells (Auto) Urine Bacteria (Auto) Ur Renal Epithelial Cell Adenovirus (PCR) B. pertussis DNA (PCR) B.parapertussis DNA PCR C. pneumoniae DNA (PCR) Coronavirus OC43 (PCR) Coronavirus HKU1 (PCR) Coronavirus 229E (PCR) SARS-CoV-2 (PCR) Coronavirus NL63 (PCR) Human Metapneumovir PCR Influenza Type A (PCR) Influenza Type B (PCR) M. pneumoniae (PCR) Parainfluenza 1 (PCR) Parainfluenza 2 (PCR) Parainfluenza 3 (PCR) Parainfluenza 4 (PCR) RSV (PCR) Entero/Rhino (PCR) 08/02/22 08/02/22 08/02/22 17:00 17:00 18:34 WBC RBC Hgb Hct MCV MCH MCHC RDW Std Deviation RDW Coeff of Terri Plt Count MPV Immature Gran % (Auto) Neut % (Auto) Lymph % (Auto) [place] % (Auto) Eos % (Auto) Baso % (Auto) Neut # (Auto) Lymph # (Auto) [place] # (Auto) Eos # (Auto) Baso # (Auto) Immature Gran # (Auto) Sodium Potassium Chloride Carbon Dioxide Anion Gap BUN Creatinine Est Cr Clr Drug Dosing Est GFR ( Amer) Est GFR (Non-Af Amer) BUN/Creatinine Ratio Glucose POC Glucose Calcium Phosphorus 4.1 Magnesium Total Bilirubin AST ALT Alkaline Phosphatase Troponin I High Sens Total Protein Albumin Globulin Albumin/Globulin Ratio TSH 4.469 Urine Color Urine Appearance Urine pH Ur Specific [place] Urine Protein Urine Glucose (UA) Urine Ketones Urine Blood Urine Nitrite Urine Bilirubin Urine Urobilinogen Ur Leukocyte Esterase Urine WBC (Auto) Urine RBC (Auto) U Hyaline Cast (Auto) U Epithel Cells (Auto) Urine Bacteria (Auto) Ur Renal Epithelial Cell Adenovirus (PCR) Not Detected B. pertussis DNA (PCR) Not Detected B.parapertussis DNA PCR Not Detected C. pneumoniae DNA (PCR) Not Detected Coronavirus OC43 (PCR) Not Detected Coronavirus HKU1 (PCR) Not Detected Coronavirus 229E (PCR) Not Detected SARS-CoV-2 (PCR) Not Detected Coronavirus NL63 (PCR) Not Detected Human Metapneumovir PCR Not Detected Influenza Type A (PCR) Not Detected Influenza Type B (PCR) Not Detected M. pneumoniae (PCR) Not Detected Parainfluenza 1 (PCR) Not Detected Parainfluenza 2 (PCR) Not Detected Parainfluenza 3 (PCR) Not Detected Parainfluenza 4 (PCR) Not Detected RSV (PCR) Not Detected Entero/Rhino (PCR) Not Detected 08/02/22 08/02/22 08/03/22 19:43 23:47 07:47 WBC 8.52 RBC 4.04 Hgb 12.6 Hct 37.6 MCV 93.1 MCH 31.2 MCHC 33.5 RDW Std Deviation 49.1 H RDW Coeff of Terri 14.3 Plt Count 151 MPV 11.8 Immature Gran % (Auto) Neut % (Auto) Lymph % (Auto) [place] % (Auto) Eos % (Auto) Baso % (Auto) Neut # (Auto) Lymph # (Auto) [place] # (Auto) Eos # (Auto) Baso # (Auto) Immature Gran # (Auto) Sodium Potassium Chloride Carbon Dioxide Anion Gap BUN Creatinine Est Cr Clr Drug Dosing Est GFR ( Amer) Est GFR (Non-Af Amer) BUN/Creatinine Ratio Glucose POC Glucose 143 H Calcium Phosphorus Magnesium Total Bilirubin AST ALT Alkaline Phosphatase Troponin I High Sens Total Protein Albumin Globulin Albumin/Globulin Ratio TSH Urine Color Yellow Urine Appearance Cloudy A Urine pH 6.0 Ur Specific [place] 1.018 Urine Protein 3+ H Urine Glucose (UA) Negative Urine Ketones Negative Urine Blood 1+ H Urine Nitrite Negative Urine Bilirubin Negative Urine Urobilinogen Negative Ur Leukocyte Esterase 2+ H Urine WBC (Auto) 10-30 H Urine RBC (Auto) 5-10 H U Hyaline Cast (Auto) 1-5 U Epithel Cells (Auto) >30 H Urine Bacteria (Auto) 1+ H Ur Renal Epithelial Cell Not Reportable Adenovirus (PCR) B. pertussis DNA (PCR) B.parapertussis DNA PCR C. pneumoniae DNA (PCR) Coronavirus OC43 (PCR) Coronavirus HKU1 (PCR) Coronavirus 229E (PCR) SARS-CoV-2 (PCR) Coronavirus NL63 (PCR) Human Metapneumovir PCR Influenza Type A (PCR) Influenza Type B (PCR) M. pneumoniae (PCR) Parainfluenza 1 (PCR) Parainfluenza 2 (PCR) Parainfluenza 3 (PCR) Parainfluenza 4 (PCR) RSV (PCR) Entero/Rhino (PCR) 08/03/22 08/03/22 08/03/22 07:47 07:47 11:16 WBC RBC Hgb Hct MCV MCH MCHC RDW Std Deviation RDW Coeff of Terri Plt Count MPV Immature Gran % (Auto) Neut % (Auto) Lymph % (Auto) [place] % (Auto) Eos % (Auto) Baso % (Auto) Neut # (Auto) Lymph # (Auto) [place] # (Auto) Eos # (Auto) Baso # (Auto) Immature Gran # (Auto) Sodium 136 Potassium 3.9 Chloride 101 Carbon Dioxide 26 Anion Gap 9 BUN 33 H Creatinine 1.43 H Est Cr Clr Drug Dosing 21.1 Est GFR ( Amer) 37.8 Est GFR (Non-Af Amer) 32.6 BUN/Creatinine Ratio 23.1 H Glucose 126 H POC Glucose 125 H Calcium 8.9 Phosphorus Magnesium Total Bilirubin AST ALT Alkaline Phosphatase Troponin I High Sens 44.0 H D 44.6 H Total Protein Albumin Globulin Albumin/Globulin Ratio TSH Urine Color Urine Appearance Urine pH Ur Specific [place] Urine Protein Urine Glucose (UA) Urine Ketones Urine Blood Urine Nitrite Urine Bilirubin Urine Urobilinogen Ur Leukocyte Esterase Urine WBC (Auto) Urine RBC (Auto) U Hyaline Cast (Auto) U Epithel Cells (Auto) Urine Bacteria (Auto) Ur Renal Epithelial Cell Adenovirus (PCR) B. pertussis DNA (PCR) B.parapertussis DNA PCR C. pneumoniae DNA (PCR) Coronavirus OC43 (PCR) Coronavirus HKU1 (PCR) Coronavirus 229E (PCR) SARS-CoV-2 (PCR) Coronavirus NL63 (PCR) Human Metapneumovir PCR Influenza Type A (PCR) Influenza Type B (PCR) M. pneumoniae (PCR) Parainfluenza 1 (PCR) Parainfluenza 2 (PCR) Parainfluenza 3 (PCR) Parainfluenza 4 (PCR) RSV (PCR) Entero/Rhino (PCR) 08/03/22 11:57 WBC RBC Hgb Hct MCV MCH MCHC RDW Std Deviation RDW Coeff of Terri Plt Count MPV Immature Gran % (Auto) Neut % (Auto) Lymph % (Auto) [place] % (Auto) Eos % (Auto) Baso % (Auto) Neut # (Auto) Lymph # (Auto) [place] # (Auto) Eos # (Auto) Baso # (Auto) Immature Gran # (Auto) Sodium Potassium Chloride Carbon Dioxide Anion Gap BUN Creatinine Est Cr Clr Drug Dosing Est GFR ( Amer) Est GFR (Non-Af Amer) BUN/Creatinine Ratio Glucose POC Glucose 150 H Calcium Phosphorus Magnesium Total Bilirubin AST ALT Alkaline Phosphatase Troponin I High Sens Total Protein Albumin Globulin Albumin/Globulin Ratio TSH Urine Color Urine Appearance Urine pH Ur Specific [place] Urine Protein Urine Glucose (UA) Urine Ketones Urine Blood Urine Nitrite Urine Bilirubin Urine Urobilinogen Ur Leukocyte Esterase Urine WBC (Auto) Urine RBC (Auto) U Hyaline Cast (Auto) U Epithel Cells (Auto) Urine Bacteria (Auto) Ur Renal Epithelial Cell Adenovirus (PCR) B. pertussis DNA (PCR) B.parapertussis DNA PCR C. pneumoniae DNA (PCR) Coronavirus OC43 (PCR) Coronavirus HKU1 (PCR) Coronavirus 229E (PCR) SARS-CoV-2 (PCR) Coronavirus NL63 (PCR) Human Metapneumovir PCR Influenza Type A (PCR) Influenza Type B (PCR) M. pneumoniae (PCR) Parainfluenza 1 (PCR) Parainfluenza 2 (PCR) Parainfluenza 3 (PCR) Parainfluenza 4 (PCR) RSV (PCR) Entero/Rhino (PCR) PG Care Time/CCT Total # of Minutes Spent Total Time Spent with Patient: Total time spent is greater than 50% in coordination of care (as documented) at patient's floor/unit and/or counseling patient: Coding Level of Care Code 12042 Subseq Obs Care Lvl 3 Diagnoses AMS (altered mental status) R41.82 Acute UTI (urinary tract infection) N39.0 Abdominal pain R10.9 Atrial fibrillation I48.91 Chronic kidney disease, stage IV (severe) N18.4 Congestive heart failure I50.9 COPD (chronic obstructive pulmonary disease) J44.9 CAD (coronary artery disease) I25.10 Hypertension I10 Hyperlipidemia E78.5 Diabetes mellitus, type 2 E11.9 GERD (gastroesophageal reflux disease) K21.9 Chronic hypoxemic respiratory failure J96.11 Pulmonary hypertension I27.20
--- NOTE | 2022-08-03 15:38 | XRay Report ---
XR chest 2V PA/lateral HISTORY: Left lower lobe rales; developing pneumonia? COMPARISON: Chest 08/02/2022. FINDINGS: No pneumothorax. No pleural effusions. The cardiac silhouette remains enlarged. There are d ense mitral annular calcifications again noted. Mild interstitial thickening, unchanged. This is like ly chronic. No new focal lung consolidations to suggest pneumonia. No evidence for pulmonary edema. IMPRESSION: Stable cardiomegaly. Otherwise, no acute process within the chest. ACT 112: Negative or not required by law. Electronically signed by: Efrain Dugan M.D. 08/03/2022 3:36 PM
--- NOTE | 2022-08-03 16:21 | XRay Report ---
KUB CLINICAL HISTORY: diffuse, intermittent abd pain; constipation? COMPARISON STUDY: CT of the abdomen and pelvis August 02, 2022. FINDINGS: Left hip arthroplasty is incidentally noted. There is contrast within the bladder from rece nt contrast-enhanced CT. There is no evidence for a bowel obstruction. Mild to moderate of stool is n oted. Amount of stool is within normal limits. IMPRESSION: 1. No evidence for a bowel obstruction. 2. Mild to moderate amount of stool within the colon and rectum. ACT 112: Negative or not required by law. Electronically signed by: Scottie Nova M.D. 08/03/2022 4:19 PM
[2022-08-03] MEDS: SENNA 8.6 MG TAB PO SCH (17:22)
[2022-08-03] MEDS: POLYETHYLENE (MIRALAX) 17 GM PACK PO SCH (17:22)
[2022-08-03] MEDS: cefTRIAXone SODIUM 1,000 MG in DEXTROSE 5% AD-VAN 50 ML IV SCH (19:53)
[2022-08-03] MEDS: TRAVOPROST Z 0.004% OPH SOLN 2.5 ML BTL OPB SCH (20:01)
[2022-08-03] MEDS: FAMOTIDINE 20 MG TAB PO SCH (20:01)
[2022-08-03] MEDS: SIMVASTATIN 40 MG TAB PO SCH (20:01)
--- NOTE | 2022-08-04 06:50 | Electrocardiogram Report ---
Test Reason : Blood Pressure : / mmHG Vent. Rate : 083 BPM Atrial Rate : 075 BPM P-R Int : 000 ms QRS Dur : 072 ms QT Int : 382 ms P-R-T Axes : 000 119 -37 degrees QTc Int : 448 ms Poor data quality, interpretation may be adversely affected Probable Atrial fibrillation Cannot rule out Anteroseptal infarct (cited on or before 18-SEP-2021) T wave abnormality, consider inferior ischemia Abnormal ECG When compared with ECG of 08-FEB-2022 23:50, No significant change Confirmed by Avtar Dominguez ([id number]) on 08/04/2022 6:50:39 AM Referred By: REFERRED SELF Confirmed By:Avtar Dominguez
[2022-08-04] MEDS: FLUTICASONE/VILANTEROL 100/25MCG 14 PUFFS/INHALER INH SCH (08:24)
[2022-08-04] MEDS: INSULIN ASPART PER UNIT SC SCH ×4 (08:24→21:55)
[2022-08-04] MEDS: LANTUS PER UNIT CHARGE SQ SCH ×2 (08:24→21:06)
[2022-08-04] MEDS: UMECLIDINIUM BROMIDE 62.5MCG/BLISTER 7 PUFFS/INHALER INH SCH (08:24)
[2022-08-04] MEDS: GABAPENTIN 600 MG TAB PO SCH (08:25)
[2022-08-04] MEDS: APIXABAN 2.5 MG TAB PO SCH ×2 (08:25→21:01)
[2022-08-04] MEDS: carvediloL 3.125 MG TAB PO SCH ×2 (08:25→21:01)
[2022-08-04] MEDS: POLYETHYLENE (MIRALAX) 17 GM PACK PO SCH (08:26)
[2022-08-04] MEDS: PANTOprazole 40 MG TAB PO SCH ×2 (08:26→21:01)
[2022-08-04] MEDS: SENNA 8.6 MG TAB PO SCH (08:26)
[2022-08-04] MEDS: allopurinoL 100 MG TAB PO SCH (08:26)
[2022-08-04 08:32] LABS: Hematocrit (blood only) 35.9 % (34.1-44.9); Hemoglobin 12.3 g/dl (12.0-16.0); Mean Corpuscular Hemoglobin 31.6 pg (25.0-34.0); Mean Corpuscular Hgb Conc 34.3 g/dL (32.0-36.0); Mean Corpuscular Volume 92.3 fL (80.0-100.0); Mean Platelet Volume 11.9 fL (9.4-12.3); Platelet Count 134 K/uL (130-400); RDW Coefficient of Variation 14.2 % (11.5-14.5); Red Blood Count 3.89 M/uL (3.93-5.22); White Blood Count 8.18 K/ul (4.8-10.8)
[2022-08-04 08:34] LABS: Troponin I High Sensitivity 40.6 pg/ml (0-14)
[2022-08-04 08:50] LABS: BUN Creatinine Ratio 21.9 (10-20); Calcium 8.6 mg/dl (8.5-10.1); Creatinine Clr Calc Pharmacy 15.4 ml/min; Est GFR (African American) 25.8 ml/min; Est GFR (Non-African American) 22.3 ml/min; Potassium 3.9 mmol/L (3.5-5.1)
[2022-08-04] MEDS ORDERED: SODIUM CHLORIDE 0.9% 500 ML IV SCH (09:45)
--- NOTE | 2022-08-04 12:22 | Hospitalist Progress Note ---
Date of Service August 04, 2022 Assessment & Plan (1) Dizziness: Plan: about 20 point drop with orthostatic BP check this in the setting of chronic right-sided CHF and severe pulm HTN likely the culprits (she is preload dependent) 500cc of fluid then saline lock re-eval tomorrow (2) AMS (altered mental status): Plan: resolved is a/o x 3, but somewhat confused (jumps from topic to topic, poor historian, etc) etiology? had abd pain off/on but CT a/p without acute findings. KUB x-ray - no significant constipation. other cause? urine cx with lactobacilli - typically not pathogenic if mental status worsens again consider MRI brain (3) Acute UTI (urinary tract infection): Plan: 80,000 CFU lactobacillus - usually not a pathogen but can be in select cases would stop abx after 3 doses (4) Abdominal pain: Plan: mainly chronic issue CT a/p without acute findings KUB x-ray - mild stool only etiology of pain?? consider RUQ u/s to look at gall bladder as gall bladder disease can present atypically in seniors (5) Atrial fibrillation: Plan: Continue Carvedilol 3.125mg po BID Continue Apixaban 2.5mg po BID controlled (6) Chronic kidney disease, stage IV (severe): Plan: baseline CrCl 20s now with superimposed KALEE - 2nd to IV CT contrast? 50cc/hr x 500cc of IV fluid, then saline lock no obstruction on recent CT BMP am (7) Congestive heart failure: Plan: chronic right-sided CHF - compensated cont coreg hold on diuretics given her KALEE (8) COPD (chronic obstructive pulmonary disease): Plan: L basilar rales on exam - repeat cxr without pneumonia cont home inhalers cont NC O2 (9) CAD (coronary artery disease): Plan: minimally elevated troponin repeat HS trop today minimally elevated no typical ischemic symptoms but does have inferior ST changes on EKG [address] Meneses - 40-50% lad lesion, RCA lesion <30% repeat echo today and go from there (10) Hypertension: Plan: BPs had been elevated - now improved Continue Carvedilol (11) Hyperlipidemia: Plan: Continue Simvastatin 40mg po qHS (12) Diabetes mellitus, type 2: Plan: Last HgbA1C = 7.1 on 04/21/22 Cont Lantus 4u BID Cont novolog controlled (13) GERD (gastroesophageal reflux disease): Plan: Chronic. but had "heartburn" last night despite the below meds could GI symptoms be cardiac in nature? echo pending -Continue Protonix 40mg po BID -Continue Pepcid 20mg po qHS (14) Chronic hypoxemic respiratory failure: Plan: 2nd to #13 stable O2 sats cont NC O2 (15) Pulmonary hypertension: Plan: severe 2nd to COPD? other? stable O2 sats repeat echo pending (16) KALEE (acute kidney injury): Plan: 2nd to IV contrast? timing of IV contrast and her KALEE fit gentle fluid hold diuretics repeat u/a repeat BMP am no obstruction on recent CT a/p Plan PT consult pending updated pt's grand-daughter Genevieve change observation to full admission status Admission and Anticipated Discharge Date Admission Date: August 02, 2022 Subjective patient with a host of complaints today states that when she stands or walks she feels dizzy/lightheaded it isn't vertigo continues with abdominal pain but intermittent and it seems to move around mild MEYER but this is chronic c/o b/l heel pain present "for a while" she feels tired appetite is fair - eating doesn't make the abdominal pain worse also had frontal headache this am - she typically doesn't get headaches when asked which symptom is the worse she first said "my breathing", then changed it to the dizziness Review of Systems Review of Systems: gen - fatigue, tired neuro - headache, dizzy cv - no chest pain, but had "heartburn" last night pulm - chronic meyer - unchanged GI - no vomiting despite "heartburn" Physical Exam Physical Exam: gen - NAD, pleasant, jumps from topic to topic, sitting in chair comfortably about to eat lunch mouth - MMM neck - no JVD head - no pain with palpation of frontal sinuses heart - irregular, s1 s2, 2/6 holosystolic murmur LSB lungs - L basilar focal rales, no wheezing; no increased work of breathing abd - soft NT ND BS+ ext - <1+ edema RLE with varicose veins; trace edema left ankle; pulses 2+ b/l psych - a/o x 3 Results & Data Results & Data ([facility]) Vital Signs (Past 12 Hours) Vital Signs Temp Pulse Resp BP BP Pulse Ox O2 Del Method 08/04/22 08:05 36.4 C L 63 18 135/54 L 95 Room Air 08/04/22 07:11 Room Air 08/04/22 04:03 36.5 C 54 L 18 112/66 99 Nasal Cannula O2 Flow Rate 08/04/22 08:05 08/04/22 07:11 08/04/22 04:03 2 Laboratory Results Laboratory Results - last 24 hr 08/03/22 08/03/22 08/04/22 16:45 20:13 07:35 WBC 8.18 RBC 3.89 L Hgb 12.3 Hct 35.9 MCV 92.3 MCH 31.6 MCHC 34.3 RDW Std Deviation 48.0 H RDW Coeff of Terri 14.2 Plt Count 134 MPV 11.9 Sodium Potassium Chloride Carbon Dioxide Anion Gap BUN Creatinine Est Cr Clr Drug Dosing Est GFR ( Amer) Est GFR (Non-Af Amer) BUN/Creatinine Ratio Glucose POC Glucose 127 H 137 H Calcium Troponin I High Sens 08/04/22 08/04/22 08/04/22 07:35 07:57 12:19 WBC RBC Hgb Hct MCV MCH MCHC RDW Std Deviation RDW Coeff of Terri Plt Count MPV Sodium 135 L Potassium 3.9 Chloride 100 Carbon Dioxide 24 Anion Gap 11 BUN 43 H Creatinine 1.96 H D Est Cr Clr Drug Dosing 15.4 Est GFR ( Amer) 25.8 Est GFR (Non-Af Amer) 22.3 BUN/Creatinine Ratio 21.9 H Glucose 131 H POC Glucose 130 H 165 H Calcium 8.6 Troponin I High Sens 40.6 H Diagnostic Findings EKG - my reading - probable a.fib, lots of artifact, ST segment depression inferior leads, no ST elevation PG Care Time/CCT Total # of Minutes Spent Total Time Spent with Patient: Total time spent is greater than 50% in coordination of care (as documented) at patient's floor/unit and/or counseling patient: Coding Level of Care Code 96003 Subseq Hosp Care Lvl 3 Diagnoses Dizziness R42 AMS (altered mental status) R41.82 Acute UTI (urinary tract infection) N39.0 Abdominal pain R10.9 Atrial fibrillation I48.91 Chronic kidney disease, stage IV (severe) N18.4 Congestive heart failure I50.9 COPD (chronic obstructive pulmonary disease) J44.9 CAD (coronary artery disease) I25.10 Hypertension I10 Hyperlipidemia E78.5 Diabetes mellitus, type 2 E11.9 GERD (gastroesophageal reflux disease) K21.9 Chronic hypoxemic respiratory failure J96.11 Pulmonary hypertension I27.20 KALEE (acute kidney injury) N17.9
[2022-08-04 15:19] LABS: Appearance Urine Clear (Clear); Bacteria Urine Automated Negative (Negative); Bilirubin Urine Negative (Negative); Blood Urine Negative (Negative); Color Urine Yellow; Epithelial Cell Urine Auto 20-30 /lpf (0-5); Glucose Urine UA Negative (Negative); Ketones Urine Negative (Negative); Leukocyte Esterase Urine Negative (Negative); Nitrite Urine Negative (Negative); Protein Urine 2+ (Negative); RBC Urine Automated 0-4 /hpf (0-4); Specific Gravity Urine 1.011 (1.000-1.030); Urobilinogen Urine Negative (Negative); pH Urine 5.5 (4.5-7.5)
--- NOTE | 2022-08-04 18:02 | XCELERA ---
[id number]
[2022-08-04] MEDS: TRAVOPROST Z 0.004% OPH SOLN 2.5 ML BTL OPB SCH (21:01)
[2022-08-04] MEDS: FAMOTIDINE 20 MG TAB PO SCH (21:01)
[2022-08-04] MEDS: GABAPENTIN 300 MG CAP PO SCH (21:01)
[2022-08-04] MEDS: SIMVASTATIN 40 MG TAB PO SCH (21:01)
[2022-08-04] MEDS: cefTRIAXone SODIUM 1,000 MG in DEXTROSE 5% AD-VAN 50 ML IV SCH (21:02)
[2022-08-05 07:23] LABS: Hemoglobin 12.4 g/dl (12.0-16.0); Mean Corpuscular Hemoglobin 31.3 pg (25.0-34.0); Mean Corpuscular Hgb Conc 33.5 g/dL (32.0-36.0); Mean Corpuscular Volume 93.4 fL (80.0-100.0); Mean Platelet Volume 11.7 fL (9.4-12.3); Platelet Count 134 K/uL (130-400); RDW Coefficient of Variation 14.2 % (11.5-14.5); Red Blood Count 3.96 M/uL (3.93-5.22); White Blood Count 7.44 K/ul (4.8-10.8)
[2022-08-05 07:51] LABS: Anion Gap 9 (3-11); BUN Creatinine Ratio 20.6 (10-20); Blood Urea Nitrogen 45 mg/dl (6-23); C Reactive Protein < 0.50 mg/dl (0-0.5); Calcium 8.7 mg/dl (8.5-10.1); Carbon Dioxide 26 mmol/L (21-32); Chloride 103 mmol/L (98-107); Creatinine Clr Calc Pharmacy 13.8 ml/min; Est GFR (African American) 22.7 ml/min; Est GFR (Non-African American) 19.6 ml/min; Glucose 123 mg/dl (70-99(Fasting)); Potassium 4.1 mmol/L (3.5-5.1); Sodium 138 mmol/L (136-145)
[2022-08-05 08:10] LABS: Basophils # (auto) 0.03 K/uL (0-0.2); Basophils % (auto) 0.4 %; Eosinophils # (auto) 0.38 K/uL (0-0.50); Eosinophils % (auto) 5.1 %; Immature Granulocytes # (auto) 0.05 K/uL (0.00-0.02); Immature Granulocytes % (auto) 0.7 %; Lymphocytes # (auto) 1.41 K/uL (1.2-3.4); Monocytes # (auto) 0.83 K/uL (0.24-0.82); Monocytes % (auto) 11.2 %; Neutrophils # (auto) 4.74 K/uL (1.4-6.5); Neutrophils % (auto) 63.6 %
[2022-08-05] MEDS: FLUTICASONE/VILANTEROL 100/25MCG 14 PUFFS/INHALER INH SCH (08:18)
[2022-08-05] MEDS: UMECLIDINIUM BROMIDE 62.5MCG/BLISTER 7 PUFFS/INHALER INH SCH (08:18)
[2022-08-05] MEDS: GABAPENTIN 300 MG CAP PO SCH ×2 (08:18→20:20)
[2022-08-05] MEDS: PANTOprazole 40 MG TAB PO SCH ×2 (08:19→20:21)
[2022-08-05] MEDS: carvediloL 3.125 MG TAB PO SCH ×2 (08:19→20:18)
[2022-08-05] MEDS: SENNA 8.6 MG TAB PO SCH (08:19)
[2022-08-05] MEDS: allopurinoL 100 MG TAB PO SCH (08:19)
[2022-08-05] MEDS: APIXABAN 2.5 MG TAB PO SCH ×2 (08:19→20:19)
[2022-08-05] MEDS: POLYETHYLENE (MIRALAX) 17 GM PACK PO SCH (08:20)
[2022-08-05] MEDS: INSULIN ASPART PER UNIT SC SCH ×4 (08:30→21:10)
[2022-08-05] MEDS: LANTUS PER UNIT CHARGE SQ SCH ×2 (08:31→21:09)
[2022-08-05 16:30] LABS: BUN Creatinine Ratio 24.9 (10-20); Calcium 8.8 mg/dl (8.5-10.1); Creatinine Clr Calc Pharmacy 14.7 ml/min; Est GFR (African American) 24.5 ml/min; Est GFR (Non-African American) 21.1 ml/min; Potassium 4.2 mmol/L (3.5-5.1)
--- NOTE | 2022-08-05 17:33 | Magnetic Resonance Report ---
MR brain wo con CLINICAL HISTORY: recent altered MS, dizziness; subacute CVA? TECHNIQUE: Multiplanar and multisequence MR images of the brain were obtained without intravenous con trast. Comparison: Comparison is made to CT head 08/02/2022 FINDINGS: No abnormal restricted diffusion is identified. Foci of T2 and FLAIR hyperintensity are noted in the paraventricular areas consistent with chronic small vessel ischemic disease. Ex vacuo ventriculomegal y and sulcal enlargement is noted compatible with diffuse encephalomalacia. No mass is seen. There is no mass effect or midline shift. There is no evidence of acute intraparenchymal hemorrhage. No extra axial fluid collections are seen. The corpus callosum, pituitary gland, and cerebellar tonsils appea r grossly unremarkable. Flow voids of the major intracranial arterial vessels are identified. The imaged portions of the para nasal sinuses, mastoid air cells, and orbits are unremarkable. IMPRESSION: No acute abnormality and in particular no evidence of acute infarct. ACT 112: Negative or not required by law. Electronically signed by: Edgardo Wilder M.D. 08/05/2022 5:30 PM
--- NOTE | 2022-08-05 20:17 | Hospitalist Progress Note ---
Date of Service August 05, 2022 Assessment & Plan (1) Dizziness: Plan: about 20 point drop with orthostatic BP check yesterday s/p 500cc of fluid yesterday despite such she still remains dizzy and "wobbly" on feet no focal neurological signs/ataxia on exam etiology?? consider MRI brain - r/o subacute CVA, etc. (2) AMS (altered mental status): Plan: resolved etiology? had abd pain off/on but CT a/p without acute findings. KUB x-ray - no significant constipation. urine cx with lactobacilli - typically not pathogenic but theoretically could have caused some alteration in MS elevated ESR but normal CRP COVID testing negative CXR without obvious pneumonia exact etiology?? likely will order MRI Brain to r/o subacute CVA re-eval tomorrow e (3) Acute UTI (urinary tract infection): Plan: 80,000 CFU lactobacillus - usually not a pathogen but can be in select cases today is day #3 of rocephin after today's dose will stop abx repeat u/a is quite clean (4) Abdominal pain: Plan: mainly chronic issue CT a/p without acute findings KUB x-ray - mild stool only etiology of pain?? consider RUQ u/s to look at gall bladder as gall bladder disease can present atypically in seniors she has no pain today thus defer on additional imaging for now her chronic GERD is aggressively treated with PPI + H2 ree (5) Atrial fibrillation: Plan: Continue Carvedilol 3.125mg po BID Continue Apixaban 2.5mg po BID Rates controlled well on tele (6) Chronic kidney disease, stage IV (severe): Plan: baseline CrCl 20s now with superimposed KALEE - 2nd to IV CT contrast? no obstruction on recent CT gave 500cc of fluid yesterday only looks euvolemic today Cr modestly worse this am repeat BMP this afternoon then again in am if creatinine continues to climb then nephrology consultation of note - repeat u/a relatively bland and without casts (7) Congestive heart failure: Plan: chronic right-sided CHF - compensated cont coreg hold on diuretics given her KALEE (8) COPD (chronic obstructive pulmonary disease): Plan: cxr x 2 without pneumonia cont home inhalers cont NC O2 with sleep and prn when she d/c from hospital -->obtain formal 2-step (9) CAD (coronary artery disease): Plan: minimally elevated troponin this admission no typical ischemic symptoms but does have inferior ST changes on EKG [address] Meneses - 40-50% lad lesion, RCA lesion <30% repeat echo this admission with preserved EF, small LV cavity, but normal LV wall motion host of symptoms - "heartburn", abd pain, etc - could some of these symptoms be "anginal-equivalent?" did have negative stress test 2 years ago follow for now - if any suspicion of ischemia -- cardiology consultation (10) Hypertension: Plan: BPs had been elevated - now improved Continue Carvedilol (11) Hyperlipidemia: Plan: Continue Simvastatin 40mg po qHS (12) Diabetes mellitus, type 2: Plan: Last HgbA1C = 7.1 on 04/21/22 Cont Lantus 4u BID Cont novolog controlled (13) GERD (gastroesophageal reflux disease): Plan: Chronic. but has had "heartburn" last 2 nights could GI symptoms be cardiac in nature? echo as above -Continue Protonix 40mg po BID -Continue Pepcid 20mg po qHS could add carafate if GERD is refractory (14) Chronic hypoxemic respiratory failure: Plan: 2nd to pulmonary HTN stable O2 sats cont NC O2 at HS 2-step at discharge (15) Pulmonary hypertension: Plan: severe 2nd to COPD? other? stable O2 sats repeat echo with severe Pulmonary HTN but echo unchanged from 2020 echo 2=step at d/c (16) KALEE (acute kidney injury): Plan: 2nd to IV contrast? timing of IV contrast and her KALEE fit hold diuretics repeat u/a fairly bland repeat BMP this afternoon and today any worsening --> nephrology consult no obstruction on recent CT a/p Plan PT consult completed yesterday -- home with HH? rehab? await OT rashard updated pt's grand-daughter Genevieve by phone today Admission and Anticipated Discharge Date Admission Date: August 04, 2022 Subjective patient sitting in chair during the visit she admits she is bored and wants to get up and move along she remains a poor historian she reports having had headache up until last pm but today it is gone had more heartburn last pm - but mild only, and no episodes today still "dizzy" and "wobbly" when getting up with staff to go to bathroom denies any dyspnea beyond her typical baseline slept ok last pm - no orthopnea she feels her memory/cognition are normal today no significant abd pain today but did have some last pm ate breakfast/lunch today w/o incident Review of Systems Review of Systems: gen - no fevers cv - no chest pain pulm - no cough GI - no nausea or emesis Physical Exam Physical Exam: gen - NAD, pleasant, jumps from topic to topic much like yesterday; sitting in chair mouth - MMM neck - no JVD heart - irregular, s1 s2, 2/6 holosystolic murmur LSB lungs - b/l basilar rales, no wheezing; no increased work of breathing abd - soft NT ND BS+ ext - <1+ edema RLE with varicose veins; trace edema left ankle; pulses 2+ b/l psych - a/o x 3 neuro - no facia ldroop; strength 5/5 x 4 exts; essential tremor of head; finger/nose/finger without ataxia Results & Data Results & Data ([facility]) Vital Signs (Past 12 Hours) Vital Signs Temp Pulse Pulse Resp BP Pulse Ox O2 Del Method 08/05/22 16:13 36.4 C L 61 18 129/76 96 Room Air 08/05/22 15:20 63 08/05/22 11:24 36.4 C L 62 18 115/72 96 Room Air Laboratory Results Laboratory Results - last 24 hr 08/05/22 08/05/22 08/05/22 06:14 06:14 06:14 WBC 7.44 RBC 3.96 Hgb 12.4 Hct 37.0 MCV 93.4 MCH 31.3 MCHC 33.5 RDW Std Deviation 49.0 H RDW Coeff of Terri 14.2 Plt Count 134 MPV 11.7 Immature Gran % (Auto) 0.7 Neut % (Auto) 63.6 Lymph % (Auto) 19.0 Schuyler % (Auto) 11.2 Eos % (Auto) 5.1 Baso % (Auto) 0.4 Neut # (Auto) 4.74 Lymph # (Auto) 1.41 Schuyler # (Auto) 0.83 H Eos # (Auto) 0.38 Baso # (Auto) 0.03 Immature Gran # (Auto) 0.05 H ESR 66 H Sodium 138 Potassium 4.1 Chloride 103 Carbon Dioxide 26 Anion Gap 9 BUN 45 H Creatinine 2.18 H Est Cr Clr Drug Dosing 13.8 Est GFR ( Amer) 22.7 Est GFR (Non-Af Amer) 19.6 BUN/Creatinine Ratio 20.6 H Glucose 123 H POC Glucose Calcium 8.7 C-Reactive Protein < 0.50 08/05/22 08/05/22 08/05/22 07:56 11:36 15:05 WBC RBC Hgb Hct MCV MCH MCHC RDW Std Deviation RDW Coeff of Terri Plt Count MPV Immature Gran % (Auto) Neut % (Auto) Lymph % (Auto) Schuyler % (Auto) Eos % (Auto) Baso % (Auto) Neut # (Auto) Lymph # (Auto) Schuyler # (Auto) Eos # (Auto) Baso # (Auto) Immature Gran # (Auto) ESR Sodium 135 L Potassium 4.2 Chloride 99 Carbon Dioxide 27 Anion Gap 9 BUN 51 H Creatinine 2.05 H Est Cr Clr Drug Dosing 14.7 Est GFR ( Amer) 24.5 Est GFR (Non-Af Amer) 21.1 BUN/Creatinine Ratio 24.9 H Glucose 206 H POC Glucose 119 H 185 H Calcium 8.8 C-Reactive Protein 08/05/22 16:38 WBC RBC Hgb Hct MCV MCH MCHC RDW Std Deviation RDW Coeff of Terri Plt Count MPV Immature Gran % (Auto) Neut % (Auto) Lymph % (Auto) Schuyler % (Auto) Eos % (Auto) Baso % (Auto) Neut # (Auto) Lymph # (Auto) Schuyler # (Auto) Eos # (Auto) Baso # (Auto) Immature Gran # (Auto) ESR Sodium Potassium Chloride Carbon Dioxide Anion Gap BUN Creatinine Est Cr Clr Drug Dosing Est GFR ( Amer) Est GFR (Non-Af Amer) BUN/Creatinine Ratio Glucose POC Glucose 178 H Calcium C-Reactive Protein PG Care Time/CCT Total # of Minutes Spent Total Time Spent with Patient: Total time spent is greater than 50% in coordination of care (as documented) at patient's floor/unit and/or counseling patient: Coding Level of Care Code 97721 Subseq Hosp Care Lvl 3 Diagnoses Dizziness R42 AMS (altered mental status) R41.82 Acute UTI (urinary tract infection) N39.0 Abdominal pain R10.9 Atrial fibrillation I48.91 Chronic kidney disease, stage IV (severe) N18.4 Congestive heart failure I50.9 COPD (chronic obstructive pulmonary disease) J44.9 CAD (coronary artery disease) I25.10 Hypertension I10 Hyperlipidemia E78.5 Diabetes mellitus, type 2 E11.9 GERD (gastroesophageal reflux disease) K21.9 Chronic hypoxemic respiratory failure J96.11 Pulmonary hypertension I27.20 KALEE (acute kidney injury) N17.9
[2022-08-05] MEDS: SIMVASTATIN 40 MG TAB PO SCH (20:18)
[2022-08-05] MEDS: FAMOTIDINE 20 MG TAB PO SCH (20:19)
[2022-08-05] MEDS: TRAVOPROST Z 0.004% OPH SOLN 2.5 ML BTL OPB SCH (20:20)
[2022-08-05] MEDS: cefTRIAXone SODIUM 1,000 MG in DEXTROSE 5% AD-VAN 50 ML IV SCH (20:24)
[2022-08-06] MEDS: INSULIN ASPART PER UNIT SC SCH ×5 (08:35→21:05)
[2022-08-06] MEDS: GABAPENTIN 300 MG CAP PO SCH ×2 (08:37→21:04)
[2022-08-06] MEDS: allopurinoL 100 MG TAB PO SCH (08:37)
[2022-08-06] MEDS: APIXABAN 2.5 MG TAB PO SCH ×2 (08:37→21:04)
[2022-08-06] MEDS: PANTOprazole 40 MG TAB PO SCH ×2 (08:37→21:04)
[2022-08-06] MEDS: FLUTICASONE/VILANTEROL 100/25MCG 14 PUFFS/INHALER INH SCH (08:38)
[2022-08-06] MEDS: carvediloL 3.125 MG TAB PO SCH ×2 (08:38→21:04)
[2022-08-06] MEDS: UMECLIDINIUM BROMIDE 62.5MCG/BLISTER 7 PUFFS/INHALER INH SCH (08:39)
[2022-08-06] MEDS: POLYETHYLENE (MIRALAX) 17 GM PACK PO SCH (08:40)
[2022-08-06] MEDS: LANTUS PER UNIT CHARGE SQ SCH ×2 (08:47→21:30)
[2022-08-06] MEDS: SENNA 8.6 MG TAB PO SCH (08:49)
[2022-08-06 08:50] LABS: BUN Creatinine Ratio 25.1 (10-20); Calcium 8.6 mg/dl (8.5-10.1); Creatinine Clr Calc Pharmacy 15.5 ml/min; Est GFR (Non-African American) 22.4 ml/min; Potassium 3.9 mmol/L (3.5-5.1)
[2022-08-06] MEDS ORDERED: ASPIRIN 81 MG ECTAB PO STA (14:40)
[2022-08-06] MEDS: SUCRALFATE 1 GM/10 ML UDC PO SCH ×2 (16:16→21:04)
[2022-08-06] MEDS: TRAVOPROST Z 0.004% OPH SOLN 2.5 ML BTL OPB SCH (21:04)
[2022-08-06] MEDS: FAMOTIDINE 20 MG TAB PO SCH (21:04)
[2022-08-06] MEDS: SIMVASTATIN 40 MG TAB PO SCH (21:04)
--- NOTE | 2022-08-06 21:30 | Hospitalist Progress Note ---
Date of Service August 06, 2022 Assessment & Plan (1) Dizziness: Plan: resolved had mild orthostasis earlier this week (20+ point drop) gave 500cc of total fluid with resolution MRI brain without cerebellar CVA, etc (2) AMS (altered mental status): Plan: Present on admission - resolved, did not recur etiology? initial concern for UTI; urine cx with lactobacilli - typically not pathogenic but theoretically could have caused some alteration in MS; s/p 3 doses of rocephin which should have been more than adequate elevated ESR but normal CRP COVID testing negative CXR without obvious pneumonia MRI brain negative for acute stroke hypoperfusion of brain from severe pulmonary HTN? other? regardless of etiology it is resolved and her mental status remains wnl (3) Acute UTI (urinary tract infection): Plan: 80,000 CFU lactobacillus - usually not a pathogen but can be in very select cases s/p 3 days of rocephin -- d/c abx repeat u/a following Rx is quite clean (4) Abdominal pain: Plan: mainly chronic issue CT a/p without acute findings KUB x-ray - mild stool only etiology of pain?? consider RUQ u/s to look at gall bladder as gall bladder disease can present atypically in seniors her chronic GERD is aggressively treated with PPI + H2 ree but she continues with the pain as well as "heartburn" add carafate to the PPI/H2 ree could GI symptoms be anginal equivalent?? (5) Atrial fibrillation: Plan: Continue Carvedilol 3.125mg po BID Continue Apixaban 2.5mg po BID Rates controlled well on tele (6) Chronic kidney disease, stage IV (severe): Plan: baseline CrCl 20s now with superimposed KALEE - suspect 2nd to IV CT contrast no obstruction on recent CT gave total 500cc of fluid when KALEE occurred of note - repeat u/a relatively bland and without casts creatinine improving repeat BMP in am (7) Congestive heart failure: Plan: chronic right-sided CHF - compensated cont coreg hold on diuretics given her KALEE (8) COPD (chronic obstructive pulmonary disease): Plan: cxr x 2 without pneumonia cont home inhalers cont NC O2 with sleep and prn when she d/c from hospital -->obtain formal 2-step (9) CAD (coronary artery disease): Plan: minimally elevated troponin this admission no typical ischemic symptoms but does have inferior ST changes on EKG and continues with vague abd pain, "heartburn episodes" (daily since admission), and vague feelings of just not being well [address] Meneses - 40-50% lad lesion, RCA lesion <30% repeat echo this admission with preserved EF, small LV cavity, but normal LV wall motion host of symptoms - "heartburn", abd pain, etc - could some of these symptoms be "anginal-equivalent?" did have negative stress test 2 years ago due to ongoing symptoms as noted above I spoke with Dr Michael Rios - we will plan for nuc stress test tomorrow NPO after MN for such formal consult placed to Dr Rios (10) Hypertension: Plan: BPs had been elevated - now improved Continue Carvedilol (11) Hyperlipidemia: Plan: Continue Simvastatin 40mg po qHS (12) Diabetes mellitus, type 2: Plan: Last HgbA1C = 7.1 on 04/21/22 Cont Lantus 4u BID Cont novolog controlled (13) GERD (gastroesophageal reflux disease): Plan: Chronic. but has had "heartburn" last 3 nights could GI symptoms be cardiac in nature? echo as above -Continue Protonix 40mg po BID -Continue Pepcid 20mg po qHS -add carafate QID EGD 09/2021 with normal esophagus and minimal gastritis - I am concerned the "heartburn" is not truly GI and potentially cardiac in nature (14) Chronic hypoxemic respiratory failure: Plan: 2nd to pulmonary HTN stable O2 sats cont NC O2 at HS 2-step at discharge (15) Pulmonary hypertension: Plan: severe 2nd to COPD? other? stable O2 sats repeat echo with severe Pulmonary HTN but echo unchanged from 2020 echo 2=step at d/c (16) KALEE (acute kidney injury): Plan: suspect 2nd to IV contrast timing of IV contrast and her KALEE fit cont to hold diuretics repeat u/a fairly bland no obstruction on recent CT a/p creatinine slowly improving repeat Cr in am Plan PT / OT evals home with HH? updated pt's grand-daughter Genevieve several times this week Admission and Anticipated Discharge Date Admission Date: August 04, 2022 Subjective patient sitting in chair she states she "had heartburn again" last night she then stated it was "chest pain" when asked if it was similar to normal GERD symptoms she was unable to tell me for sure no diaphoresis or dyspnea with the chest pain eating well -- eating all of her meals at one point during the visit she said "I just didn't feel well" when asked to elaborate she said that when she got up with nursing staff to go to the bathroom she just felt "off" when asked if MEYER is at baseline she concurred it is unchanged tele - a.fib, rates <100 Review of Systems Review of Systems: gen - no fever; appetite is good; sleeping ok cv - "heartburn" symptoms and chest discomfort GI - vague abdominal discomfort keeps happening on/off pulm - mild MEYER at baseline; no cough musculo - no significant edema neuro - no further dizziness Physical Exam Physical Exam: gen - NAD, pleasant, sitting in chair, very poor historian; NAD mouth - MMM neck - no JVD heart - irregular, s1 s2, 2/6 holosystolic murmur LSB lungs - fine, dry b/l basilar rales, no wheezing; no increased work of breathing abd - soft NT ND BS+ ext - trace edema RLE with varicose veins; trace edema left ankle; pulses 2+ b/l psych - a/o x 3 Results & Data Results & Data ([facility]) Vital Signs (Past 12 Hours) Vital Signs Temp Pulse Pulse Pulse Resp BP Pulse Ox 08/06/22 19:00 36.3 C L 62 18 156/80 H 94 08/06/22 15:55 36.3 C L 66 16 139/69 97 08/06/22 13:47 56 L 08/06/22 11:50 36.3 C L 62 16 116/65 92 O2 Del Method 08/06/22 19:00 Room Air 08/06/22 15:55 Room Air 08/06/22 13:47 08/06/22 11:50 Room Air Laboratory Results Laboratory Results - last 24 hr 08/06/22 08/06/22 08/06/22 07:22 07:39 11:37 Sodium 138 Potassium 3.9 Chloride 105 Carbon Dioxide 25 Anion Gap 8 BUN 49 H Creatinine 1.95 H Est Cr Clr Drug Dosing 15.5 Est GFR ( Amer) 26.0 Est GFR (Non-Af Amer) 22.4 BUN/Creatinine Ratio 25.1 H Glucose 117 H POC Glucose 115 H 145 H Calcium 8.6 08/06/22 08/06/22 16:29 20:30 Sodium Potassium Chloride Carbon Dioxide Anion Gap BUN Creatinine Est Cr Clr Drug Dosing Est GFR ( Amer) Est GFR (Non-Af Amer) BUN/Creatinine Ratio Glucose POC Glucose 126 H 142 H Calcium PG Care Time/CCT Total # of Minutes Spent Total Time Spent with Patient: Total time spent is greater than 50% in coordination of care (as documented) at patient's floor/unit and/or counseling patient: Coding Level of Care Code 11918 Subseq Hosp Care Lvl 3 Diagnoses Dizziness R42 AMS (altered mental status) R41.82 Acute UTI (urinary tract infection) N39.0 Abdominal pain R10.9 Atrial fibrillation I48.91 Chronic kidney disease, stage IV (severe) N18.4 Congestive heart failure I50.9 COPD (chronic obstructive pulmonary disease) J44.9 CAD (coronary artery disease) I25.10 Hypertension I10 Hyperlipidemia E78.5 Diabetes mellitus, type 2 E11.9 GERD (gastroesophageal reflux disease) K21.9 Chronic hypoxemic respiratory failure J96.11 Pulmonary hypertension I27.20 KALEE (acute kidney injury) N17.9
--- NOTE | 2022-08-06 23:15 | Electrocardiogram Report ---
Test Reason : Blood Pressure : / mmHG Vent. Rate : 083 BPM Atrial Rate : 000 BPM P-R Int : 000 ms QRS Dur : 076 ms QT Int : 428 ms P-R-T Axes : 045 104 -14 degrees QTc Int : 502 ms Poor data quality, interpretation may be adversely affected Atrial fibrillation Rightward axis Low voltage QRS Cannot rule out Anteroseptal infarct Nonspecific ST and T wave abnormality Prolonged QT Abnormal ECG When compared with ECG of 02-AUG-2022 16:53, QT has lengthened Confirmed by Avtar Dominguez ([id number]) on 08/06/2022 11:15:11 PM Referred By: REFERRED SELF Confirmed By:Avtar Dominguez
[2022-08-07 08:35] LABS: BUN Creatinine Ratio 25.3 (10-20); Calcium 8.8 mg/dl (8.5-10.1); Creatinine Clr Calc Pharmacy 16.9 ml/min; Potassium 4.2 mmol/L (3.5-5.1)
[2022-08-07] MEDS: INSULIN ASPART PER UNIT SC SCH ×4 (08:48→20:53)
[2022-08-07] MEDS ORDERED: REGADENOSON 0.4 MG/5 ML SYR IV ONE (09:07)
[2022-08-07] MEDS: SENNA 8.6 MG TAB PO SCH (10:48)
[2022-08-07] MEDS: carvediloL 3.125 MG TAB PO SCH ×2 (10:48→20:08)
[2022-08-07] MEDS: GABAPENTIN 300 MG CAP PO SCH ×2 (10:48→20:08)
[2022-08-07] MEDS: SUCRALFATE 1 GM/10 ML UDC PO SCH ×4 (10:48→20:09)
[2022-08-07] MEDS: allopurinoL 100 MG TAB PO SCH (10:49)
[2022-08-07] MEDS: PANTOprazole 40 MG TAB PO SCH ×2 (10:49→20:07)
[2022-08-07] MEDS: ASPIRIN 81 MG ECTAB PO SCH (10:49)
[2022-08-07] MEDS: APIXABAN 2.5 MG TAB PO SCH ×2 (10:50→20:08)
[2022-08-07] MEDS: POLYETHYLENE (MIRALAX) 17 GM PACK PO SCH (10:55)
[2022-08-07] MEDS: FLUTICASONE/VILANTEROL 100/25MCG 14 PUFFS/INHALER INH SCH (10:56)
[2022-08-07] MEDS: UMECLIDINIUM BROMIDE 62.5MCG/BLISTER 7 PUFFS/INHALER INH SCH (10:57)
[2022-08-07] MEDS: LANTUS PER UNIT CHARGE SQ SCH ×2 (11:11→21:23)
--- NOTE | 2022-08-07 11:12 | Cardiology Consultation ---
Date of Consultation August 07, 2022 Assessment & Plan (1) Abdominal pain: 2. Pulmonary hypertension-- Previously on sildenafil - stopped 08/2016. Group 2/3, severe pre and post capillary on RHC 11/2021. 3. Chronic diastolic heart failure-- on every other day Lasix as an outpatient 4. Mild nonobstructive coronary artery disease 5. Diabetes 6. Persistent atrial fibrillation, rate controlled, on Eliquis 7. Hypertension--well-controlled on current therapy 8. COPD--moderate obstruction on PFTs 9. KASHMIR 10. Acute on chronic renal insufficiency Patient seen in hospital due to intermittent epigastric discomfort. Low suspicion for ACS. Reviewed repeat stress test from today. No evidence of significant ischemia. Overall low suspicion that symptoms are secondary to coronary artery disease. Suspect symptoms likely noncardiac but she does have severe pulmonary hypertension with systolic pressures >90s and evidence of RV dysfunction. Question if some of patient's symptoms may be secondary to RV failure and congestion. Minimal congestion on exam today, but IVC borderline dilated on recent echo. She was dizzy/orthostatic with KALEE on admission with improved symptoms post IV fluids. Long-term suspect volume status will be increasingly difficult to manage with her RV failure, severe LVH and question some degree of dynamic LVOT. For now recommend continuing to hold home diuretics. We will consider restarting every other day as an outpatient. Continue current carvedilol, Eliquis. Can stop aspirin. We will arrange follow-up in 1 to 2 weeks. History of Present Illness Attending Physician: Alejandro Delgado History of Present Illness Ms. Stokes is a very pleasant 87-year-old woman known to me from the outpatient setting currently admitted with altered mental status and ongoing epigastric pain. She has a history of severe pulmonary hypertension (Group 2/3) previously on sildenafil, chronic diastolic heart failure, mild nonobstructive coronary artery disease, hypertension, COPD, chronic kidney disease, diabetes, persistent atrial fibrillation. Admitted 4 days ago with confusion thought potentially secondary to UTI and is resolved with antibiotics. Has continued to have epigastric abdominal pain with largely unremarkable work-up. Flat HS TropI in 30s to 40s. ECG showing rate controlled atrial fibrillation, right axis deviation and no new ST changes. Echocardiogram unchanged from 07/2021 showing LVH with hyperdynamic LV function, severe biatrial enlargement, mild RV dilation/dysfunction and severe pulmonary hypertension with estimated PA pressures in the 90s. Seen today at time of nuclear stress. States feels like she is thinking clearly. She denies any chest pain, palpitations or significant shortness of breath. Reports intermittent epigastric pain that can occur anytime but may be more common with meals. No new exertional symptoms. No worsened edema at home. Recent cardiac testing: Right heart cath [facility] 11/2021: RA 14, RV 70/12, PA 70/31 (44), PAWP 24, Adi CO/CI 3.0/1.9, Thermo CO/CI 1.9/1.2, PaO2 50% Echo 07/2021: Small LV, moderate LVH, LVEF greater than 70%, RV mildly dilated borderline RV function. Mild mitral stenosis, mild MR, moderate to severe TR. Estimated PASP 95-100, RA 8 Pharmacologic SPECT negative for ischemia 09/2019. Allergies Allergy/AdvReac Type Severity Reaction Status Date / Time Sulfa (Sulfonamide Allergy Severe ANAPHYLAXIS; Verified 08/02/22 17:19 Antibiotics) TAKES AMARYL W/O REACTION cephalexin [From Keflex] Allergy Intermediate Headahce; Verified 08/02/22 17:19 Nausea; Rash nystatin Allergy Intermediate Wheezing Verified 08/02/22 17:19 amoxicillin [From Augmentin] Allergy Unknown CAN'T Verified 08/02/22 17:19 REMEMBER clavulanic acid Allergy Unknown CAN'T Verified 08/02/22 17:19 [From Augmentin] REMEMBER thyroid, pork Allergy Unknown "ALL Verified 08/02/22 17:19 THYROID AGENTS"-PT UNSURE OF REACTION Cephalosporins AdvReac Intermediate KEFLEX Verified 08/02/22 17:19 ALLERGY -NAUSEA Home Medications Medication Instructions Recorded Confirmed Type glucosamine-chondroitin 250 mg-200 2 tab PO BID 05/13/18 08/02/22 History mg tablet (Osteo Bi-Flex) levalbuterol HCl 1.25 mg/3 mL 1.25 mg (3 mL) inhalation Q4H PRN 07/28/19 08/02/22 Rx solution for nebulization shortness of breath or wheezing #90 mL ferrous sulfate 325 mg (65 mg 325 mg PO QAM 06/24/20 08/02/22 History iron) tablet travoprost 0.004 % eye drops 1 drp OPB HS 11/13/20 08/02/22 History (Travatan Z) TechLITE Lancets 30 gauge (lancets) #400 ea 12/26/20 07/29/22 Rx flash glucose scanning reader 07/31/21 07/29/22 History (FreeStyle Jelly 2 Aurora) flash glucose sensor (FreeStyle 07/31/21 07/29/22 History Jelly 2 Sensor kit) apixaban 2.5 mg tablet (Eliquis) 2.5 mg PO BID #180 tabs 08/18/21 08/02/22 Rx budesonide-formoterol HFA 160 2 puff inhalation BID #3 Inhalers 08/18/21 08/02/22 Rx mcg-4.5 mcg/actuation aerosol inhaler (Symbicort) albuterol sulfate 90 mcg/actuation 2 puff inhalation Q6H PRN 09/04/21 08/02/22 Rx aerosol inhaler shortness of breath or wheezing #3 Inhalers carvedilol 3.125 mg tablet 3.125 mg PO BID #180 tabs 09/24/21 08/02/22 Rx blood sugar diagnostic 09/26/21 07/29/22 History Portable Oxygen #1 ea 10/17/21 07/29/22 Rx allopurinol 100 mg tablet 200 mg PO QAM #180 tabs 12/19/21 08/02/22 Rx BD Ultra-Fine Vielka Pen Needle 32 #400 ea 01/15/22 07/29/22 Rx gauge x 5/32" (pen needle, diabetic) calcium carbonate 600 mg calcium 600 mg PO QAM 02/04/22 08/02/22 History (1,500 mg) tablet (Calcium) famotidine 20 mg tablet (Acid 20 mg PO HS 02/04/22 08/02/22 History Vaccine Customer Representative (famotidine)) pantoprazole 40 mg tablet,delayed 40 mg PO BID 02/04/22 08/02/22 History release tiotropium bromide 18 mcg capsule 1 cap inhalation QAM 02/04/22 08/02/22 History with inhalation device (Spiriva with HandiHaler) Novolog Flexpen U-100 Insulin 100 12 - 20 unit (0.12 - 0.2 mL) 05/22/22 08/02/22 Rx unit/mL (3 mL) subcutaneous subcut TID 90 days #60 mL (insulin aspart U-100) furosemide 40 mg tablet (Lasix) 40 mg PO Q OTHER DAY PRN Edema #45 06/08/22 08/02/22 Rx tabs insulin glargine 100 unit/mL (3 8 unit (0.08 mL) subcut HS #1 box 07/20/22 08/02/22 Rx mL) subcutaneous pen (Lantus Solostar U-100 Insulin) simvastatin 40 mg tablet 40 mg PO HS #90 tabs 07/29/22 08/02/22 Rx gabapentin 600 mg tablet 600 mg PO TID 08/02/22 08/02/22 History Patient History Medical History Acute exacerbation of chronic obstructive pulmonary disease Adult failure to thrive Adverse reaction to anesthetic agent Hard to wake up Anemia Asthma CAD (coronary artery disease) NON-OBSTRUCTIVE Cardiorenal syndrome Chronic anticoagulation Chronic back pain RLE RADICULOPATHY Chronic hypoxemic respiratory failure Chronic kidney disease, stage III (moderate) Congestive heart failure DIASTOLIC COPD (chronic obstructive pulmonary disease) Decreased oral intake Depression Diabetes mellitus, type 2 Dyspnea on exertion GERD (gastroesophageal reflux disease) CONTROLLED Glaucoma Gout Headache TEMPORAL BIOPSY DONE IN 2018 Hiatal hernia History of central retinal artery occlusion History of diverticulitis History of hypothyroidism EUTHYROID ON MORE RECENT TESTING Hx of gout Hyperlipidemia Hypertension Hyponatremia Lumbar spinal stenosis Nausea Nocturnal hypoxemia On home oxygen therapy WEARS 2L O2 "MOST OF THE TIME" Osteoarthritis Pulmonary HTN SEVERE PULMONARY HTN (RVSP > 60MMHG) Pulmonary hypertension Pulmonary nodule Seizure 18 YEARS AGO; NO ISSUES SINCE Tremor ESSENTIAL TREMOR (HEAD) Valvular disease MODERATE TO SEVERE TR. MODERATE AV SCLEROSIS Vitamin D deficiency Surgical History History of cardiac cath 2008 NO STENTS History of cataract surgery RT/LEFT History of dacryocystorhinostomy bilateral History of dilation and curettage History of surgery CYSTOCELE REPAIR RECTOCELE REPAIR History of temporal artery biopsy 02/08/14= MAC SEDATION WITHOUT ISSUES AT [facility] History of tooth extraction History of total hip arthroplasty (~07/16/09) LEFT Family History Father , Age 60 from [place] Myocardial infarction Diabetes Hypertension Grandfather Stroke Mother Cancer Hearing loss Allergies Aunt Hearing loss Other Asthma Coronary heart disease Heart disease No family history of adverse response to anesthesia No family history of bleeding disorder Denies family history of Ovarian cancer Prostate cancer Breast cancer Lung cancer Colorectal cancer Social History Smoking Status: Never smoker Second Hand Exposure: No; Do You Dip or Chew Tobacco: No; Hx Alcohol Use: No Hx Substance Use: No Preferred Language: Montenegrin Communication Ability: Effective Visual Impairment: No Limitations Hearing Ability: Normal Mold Machine Operator Required: No Beliefs That Will Affect Care: None marital status: / Current Living Situation: Family Current Living Situation Comment: Lives with younger sister current occupational status: retired How many Children do You have: 2 Other Information That Helps Us Care for You: No Feels Safe at Home: Yes Safety Concerns: Feels Safe At This Time Childhood Exposure to Second-Hand Smoke: No caffeine: Yes Dental Care, Regularly: Yes Physical Activity Frequency: Does not Exercise Seatbelt Use: always Sunscreen Use: Yes Assistive Devices: Cane, Oxygen - at Night and Walker Review of Systems Review of Systems: All systems reviewed & are unremarkable except as noted in HPI & below Physical Exam Physical Exam: General: Comfortable, frail, resting tremor HEENT: Sclerae anicteric Lungs: Clear to auscultation bilaterally Cardiac: Irregular irregular, 2 out of 6 holosystolic murmur at left lower sternal border Vascular: 2+ radial Abdomen: Soft, mild right upper quadrant tenderness Extremities: Well perfused, no peripheral edema Neuro: Nonfocal Psych: Alert orient x3, normal affect and mood Results & Data ([facility]) Vital Signs (Past 12 Hours) Vital Signs Temp Pulse Resp BP BP Pulse Ox O2 Del Method 08/07/22 10:47 64 168/75 H 08/07/22 07:52 98.2 F 59 L 16 130/78 94 Room Air 08/07/22 03:08 97.5 F L 60 18 108/58 L 98 Nasal Cannula 08/06/22 23:00 97.7 F 63 18 156/76 H 96 Nasal Cannula O2 Flow Rate 08/07/22 10:47 08/07/22 07:52 08/07/22 03:08 1 08/06/22 23:00 2 PG Care Time/CCT Total # of Minutes Spent Total Time Spent with Patient: Total time spent is greater than 50% in coordination of care (as documented) at patient's floor/unit and/or counseling patient: Coding Level of Care Code 82844 Initial Inpt Care Lvl 3 Diagnoses Abdominal pain R10.9
--- NOTE | 2022-08-07 12:04 | Myocardial Perfusion Study ---
Date of Service August 07, 2022 Myocardial Perfusion Study Blk Myocardial Perfusion Study Report [place] Act 112: Negative ONE DAY NUCLEAR MEDICINE LEXISCAN TECHNETIUM 99M MYOCARDIAL PERFUSION SCAN Indication: Epigastric pain, history of nonobstructive CAD. Baseline ECG: Atrial fibrillation, ventricular rate 55, right axis deviation, nonspecific ST findings. Stress ECG: No Lexiscan induced ST changes. No arrhythmias. HR diane from 59 to 79 representing 59% MPHR. Blood pressure diane from 157/80 up to 175/98. Technique: For the stress portion of the study 32.0 mCi of Technetium 99m Cardiolite IV was injected at 0925 on 08/07/2022. 30 minutes following the injection, imaging of the heart was performed in multiple projections. For the rest portion of the study, 10.5 mCi of Technetium 99m Cardiolite was injected IV at 0730. One hour following the injection, imaging of the heart was performed in the same projections. Findings: Rotating raw images were reviewed in detail. Potential sources of attenuation include vertical motion more prominent on stress than rest, minimal lateral breast attenuation and minimal gut uptake impacting the inferior imaging border of the heart. No significant extracardiac pathologic uptake. Short axis, vertical long axis and horizontal long axis images were reviewed in detail. No visual TID. Findings suggestive of RVH. Normal myocardial perfusion on both stress and rest. Small LV cavity. EDV 9 ml. Calculated EF 50%. Abnormal septal motion. SUMMARY: 1. Negative myocardial perfusion study for significant Lexiscan induced ischemia. 2. Small LV size with normal LV function. LVEF 50% with abnormal septal motion. 3. Non-diagnostic stress ECG due to inability to reach target HR with Lexiscan. [facility] Myocardial perfusion code Procedure Code Procedure 1: Myocardial Perfusion Codes: 11770 Cardiovascular Stress Test, multiple Procedure 2: Myocardial Perfusion Codes: 82556 Cardiovascular Stress Test, interpretation and report
[2022-08-07] MEDS: SIMVASTATIN 40 MG TAB PO SCH (20:07)
[2022-08-07] MEDS: FAMOTIDINE 20 MG TAB PO SCH (20:08)
[2022-08-07] MEDS: TRAVOPROST Z 0.004% OPH SOLN 2.5 ML BTL OPB SCH (20:08)
--- NOTE | 2022-08-07 20:20 | Hospitalist Progress Note ---
Date of Service August 07, 2022 Assessment & Plan (1) Dizziness: Plan: resolved had mild orthostasis earlier this week (20+ point drop) gave 500cc of total fluid with resolution MRI brain without cerebellar CVA, etc no recurrence (2) AMS (altered mental status): Plan: Present on admission - resolved, did not recur etiology? initial concern for UTI; urine cx with lactobacilli - typically not pathogenic but theoretically could have caused some alteration in MS; s/p 3 doses of rocephin which should have been more than adequate elevated ESR but normal CRP COVID testing negative CXR without obvious pneumonia MRI brain negative for acute stroke hypoperfusion of brain from severe pulmonary HTN? other? regardless of etiology it is resolved and her mental status remains wnl B12 and TSH levels in her record have been wnl for completeness - check a B1 level in am (3) Acute UTI (urinary tract infection): Plan: 80,000 CFU lactobacillus - usually not a pathogen but can be in very select cases s/p 3 days of rocephin -- d/c abx repeat u/a following Rx is wnl (4) Abdominal pain: Plan: mainly chronic issue CT a/p without acute findings KUB x-ray - mild stool only etiology of pain?? consider RUQ u/s to look at gall bladder as gall bladder disease can present atypically in seniors but her pain is often irrespective of eating/meals her chronic GERD is aggressively treated with PPI + H2 ree but she continues with the pain as well as "heartburn" added carafate to the PPI/H2 ree could GI symptoms be anginal equivalent?? to that end pursued nuclear stress test today which was negative for ischemia will send back to [facility] post-d/c for this ongoing issue (5) Atrial fibrillation: Plan: Continue Carvedilol 3.125mg po BID Continue Apixaban 2.5mg po BID Rates controlled (6) Chronic kidney disease, stage IV (severe): Plan: baseline CrCl 20s; baseline creatinine 1.4 to 1.8 today 1.7 superimposed KALEE - suspect 2nd to IV CT contrast no obstruction on recent CT gave total 500cc of fluid when KALEE occurred creatinine continues to improve of note - most recent u/a relatively bland and without casts repeat BMP in am (7) Congestive heart failure: Plan: chronic right-sided CHF - compensated cont coreg hold on diuretics given her KALEE appreciate cardiology consult by Dr Rios (8) COPD (chronic obstructive pulmonary disease): Plan: cxr x 2 without pneumonia cont home inhalers cont NC O2 with sleep and prn when she d/c from hospital -->obtain formal 2-step (9) CAD (coronary artery disease): Plan: minimally elevated troponin this admission no typical ischemic symptoms but does have inferior ST changes on EKG and continues with vague abd pain, "heartburn episodes" (daily since admission), and vague feelings of just not being well [address] Meneses - 40-50% lad lesion, RCA lesion <30% repeat echo this admission with preserved EF, small LV cavity, but normal LV wall motion host of symptoms - "heartburn", abd pain, etc - could some of these symptoms be "anginal-equivalent?" did have negative stress test 2 years ago repeated Lexiscan nuclear stress test today - and seen formally by Dr Rios - stress test negative, low risk for ischemia some of her symptoms - related to right heart disease and pulmonary HTN which is severe? appreciate Dr Rios consult consider adding a daily aspirin but defer to cardiology (10) Hypertension: Plan: BPs had been elevated - now improved Continue Carvedilol (11) Hyperlipidemia: Plan: Continue Simvastatin 40mg po qHS (12) Diabetes mellitus, type 2: Plan: Last HgbA1C = 7.1 on 04/21/22 Cont Lantus 4u BID Cont novolog controlled (13) GERD (gastroesophageal reflux disease): Plan: Chronic. but has had "heartburn" frequently at home and also multiple times while hospitalized -Continue Protonix 40mg po BID -Continue Pepcid 20mg po qHS -added carafate QID EGD 09/2021 with normal esophagus and minimal gastritis send to [facility] post-d/c due to these ongoing complaints again cardiac w/u for ischemia negative (14) Chronic hypoxemic respiratory failure: Plan: 2nd to pulmonary HTN stable O2 sats cont NC O2 at HS 2-step at discharge (15) Pulmonary hypertension: Plan: severe 2nd to COPD? other? stable O2 sats repeat echo with severe Pulmonary HTN but echo unchanged from 2020 echo 2=step at d/c (16) KALEE (acute kidney injury): Plan: suspect 2nd to IV contrast timing of IV contrast and her KALEE fit cont to hold diuretics repeat u/a fairly bland no obstruction on recent CT a/p creatinine slowly improving - today 1.7 repeat Cr in am Plan PT / OT evals appreciated -- can d/c home per PT updated pt's grand-daughter Genevieve several times this week including today by phone of note - in light of CKD stage 4 her gabapentin 600mg TID was renally adjusted and now she is 300mg BID this change may allow her to be less sedated and less risk of peripheral edema also renally adjusted her allopurinol to 100mg/day hopefully home tomorrow w/ family Admission and Anticipated Discharge Date Admission Date: August 04, 2022 Subjective saw patient post-stress test she seemed very tired she admits she didn't sleep well last pm she also admits she had abdominal discomfort during the stress test that symptom is now resolved she did not have chest pain or dyspnea no further heartburn eating her meals - nearly 100% no new complaints breathing is about the same as previous tele overnight - a.fib, rates <100 Review of Systems Review of Systems: gen - fatigue/tired cv - no cp, no orthopnea pulm - chronic MEYER; no dyspnea at rest GI - no nausea/emesis despite the abd pain earlier today Physical Exam Physical Exam: gen - NAD, but looks tired mouth - MMM neck - no JVD heart - irregular, s1 s2, 2/6 holosystolic murmur LSB lungs - fine, dry b/l basilar rales, no wheezing; no increased work of breathing; no change in exam today abd - soft NT ND BS+ ext - no edema of ankles/feet b/l; pulses 2+ b/l psych - a/o x 3 Results & Data Results & Data ([facility]) Vital Signs (Past 12 Hours) Vital Signs Temp Pulse Resp BP BP Pulse Ox O2 Del Method 08/07/22 19:00 36 C L 67 20 136/81 95 Room Air 08/07/22 14:47 36.5 C 64 18 150/81 H 95 Room Air 08/07/22 12:14 36.5 C 60 18 161/92 H 94 Room Air 08/07/22 10:47 64 168/75 H Laboratory Results Laboratory Results - last 24 hr 08/06/22 08/07/22 08/07/22 20:30 07:53 08:01 Sodium 139 Potassium 4.2 Chloride 106 Carbon Dioxide 24 Anion Gap 9 BUN 45 H Creatinine 1.78 H Est Cr Clr Drug Dosing 16.9 Est GFR ( Amer) 29.0 Est GFR (Non-Af Amer) 25.0 BUN/Creatinine Ratio 25.3 H Glucose 119 H POC Glucose 142 H 123 H Calcium 8.8 08/07/22 08/07/22 11:53 16:55 Sodium Potassium Chloride Carbon Dioxide Anion Gap BUN Creatinine Est Cr Clr Drug Dosing Est GFR ( Amer) Est GFR (Non-Af Amer) BUN/Creatinine Ratio Glucose POC Glucose 134 H 161 H Calcium PG Care Time/CCT Total # of Minutes Spent Total Time Spent with Patient: Total time spent is greater than 50% in coordination of care (as documented) at patient's floor/unit and/or counseling patient: Coding Level of Care Code 78436 Subseq Hosp Care Lvl 3 Diagnoses Dizziness R42 AMS (altered mental status) R41.82 Acute UTI (urinary tract infection) N39.0 Abdominal pain R10.9 Atrial fibrillation I48.91 Chronic kidney disease, stage IV (severe) N18.4 Congestive heart failure I50.9 COPD (chronic obstructive pulmonary disease) J44.9 CAD (coronary artery disease) I25.10 Hypertension I10 Hyperlipidemia E78.5 Diabetes mellitus, type 2 E11.9 GERD (gastroesophageal reflux disease) K21.9 Chronic hypoxemic respiratory failure J96.11 Pulmonary hypertension I27.20 KALEE (acute kidney injury) N17.9
[2022-08-08 07:00] LABS: BUN Creatinine Ratio 22.8 (10-20); Calcium 8.9 mg/dl (8.5-10.1); Creatinine Clr Calc Pharmacy 15.6 ml/min; Est GFR (African American) 26.3 ml/min; Est GFR (Non-African American) 22.7 ml/min; Potassium 4.3 mmol/L (3.5-5.1)
[2022-08-08] MEDS: INSULIN ASPART PER UNIT SC SCH ×2 (09:24→13:17)
[2022-08-08] MEDS: LANTUS PER UNIT CHARGE SQ SCH (09:30)
[2022-08-08] MEDS: carvediloL 3.125 MG TAB PO SCH (09:32)
[2022-08-08] MEDS: APIXABAN 2.5 MG TAB PO SCH (09:32)
[2022-08-08] MEDS: SUCRALFATE 1 GM/10 ML UDC PO SCH ×2 (09:32→13:24)
[2022-08-08] MEDS: PANTOprazole 40 MG TAB PO SCH (09:32)
[2022-08-08] MEDS: GABAPENTIN 300 MG CAP PO SCH (09:33)
[2022-08-08] MEDS: allopurinoL 100 MG TAB PO SCH (09:33)
[2022-08-08] MEDS: SENNA 8.6 MG TAB PO SCH (09:33)
[2022-08-08] MEDS: UMECLIDINIUM BROMIDE 62.5MCG/BLISTER 7 PUFFS/INHALER INH SCH (09:34)
[2022-08-08] MEDS: POLYETHYLENE (MIRALAX) 17 GM PACK PO SCH (09:34)
[2022-08-08] MEDS: ASPIRIN 81 MG ECTAB PO SCH (09:34)
[2022-08-08] MEDS: FLUTICASONE/VILANTEROL 100/25MCG 14 PUFFS/INHALER INH SCH (09:35)
--- NOTE | 2022-08-08 14:14 | Discharge Summary ---
Date of Service date of admission - August 02, 2022 date of discharge - August 08, 2022 Admission HPI Per Admitting Provider Mrs. Stokes is an 87yo female with multiple medical comorbidities. She presently lives with her younger sister and helps to care for her and is overall fairly active and independent. Around 13:15 patient texted her daughter asking her to come over because she didn't feel well. Daughter states that the patient was shaky and pale when she arrived and was having a difficult time articulating what her symptoms were. She did have some abdominal discomfort mostly in mid- abdomen and lower suprapubic region. No report of fever, chills, cough, SOB, chest pain. No nausea or vomiting. No diarrhea. She denies dizziness, numbness/tingling/weakness. No urinary complaints. No additional complaints at this time. In the ER she is afebrile, hypertensive, otherwise HD stable. NAD. Her daughter is at bedside and assists with questioning. ER Course: Tylenol Ceftriaxone Principal Diagnosis 1. confusion - resolved. Exact cause uncertain. MRI brain negative for stroke. Due to UTI? 2. UTI - resolved. 3. chronic abdominal pain - exact cause uncertain; extensive work-up negative. 4. heartburn/chest discomfort - negative stress test. 5. pulmonary hypertension. 6. atrial fibrillation. 7. dizziness - resolved. Discharge Exam gen - NAD, looks good today mouth - MMM neck - no JVD heart - irregular, s1 s2, 2/6 holosystolic murmur LSB lungs - fine, dry b/l basilar rales, no wheezing; no increased work of breathing; no change from prior exams abd - soft NT ND BS+ ext - no edema of ankles/feet b/l; pulses 2+ b/l psych - a/o x 3 Discharge Data Allergies Allergy/AdvReac Type Severity Reaction Status Date / Time Sulfa (Sulfonamide Allergy Severe ANAPHYLAXIS; Verified 08/02/22 17:19 Antibiotics) TAKES AMARYL W/O REACTION cephalexin [From Keflex] Allergy Intermediate Headahce; Verified 08/02/22 17:19 Nausea; Rash nystatin Allergy Intermediate Wheezing Verified 08/02/22 17:19 amoxicillin [From Augmentin] Allergy Unknown CAN'T Verified 08/02/22 17:19 REMEMBER clavulanic acid Allergy Unknown CAN'T Verified 08/02/22 17:19 [From Augmentin] REMEMBER thyroid, pork Allergy Unknown "ALL Verified 08/02/22 17:19 THYROID AGENTS"-PT UNSURE OF REACTION Cephalosporins AdvReac Intermediate KEFLEX Verified 08/02/22 17:19 ALLERGY -NAUSEA Consultations [facility] Cardiology Physical therapy Occupational therapy Procedures Performed 1. nuclear stress test - SUMMARY: 1. Negative myocardial perfusion study for significant Lexiscan induced ischemia. 2. Small LV size with normal LV function. LVEF 50% with abnormal septal motion. 3. Non-diagnostic stress ECG due to inability to reach target HR with Lexiscan. 2. echocardiogram - 3. TWO-step ambulatory O2 test - NO NEED for home O2 with activity/ambulation Ordered Studies Abdomen/Pelvis CT 08/02/22 17:27 CT abd pelvis IV con only CLINICAL HISTORY: abd pain TECHNIQUE: Helical axial images of the abdomen and pelvis were obtained and displayed. Automated dose lowering techniques and/or adjustment according to patient size were utilized for this exam. This exam was performed with intravenous contrast. CT DOSE: 964.85 mGy.cm COMPARISON: Comparison is made to CT abdomen pelvis 09/18/2021 and prior renal ultrasound 09/22/2021 FINDINGS: Lower chest: Cardiomegaly is seen. Mitral annular calcifications are seen. Liver: Unremarkable. No focal lesions are seen. Gallbladder and biliary tree: No calcified gallstones. Normal caliber wall. No intra- or extrahepatic biliary ductal dilation. Pancreas: Unremarkable, no focal lesions. Spleen: Unremarkable. Adrenals: 23 mm left adrenal nodule is seen. Kidneys and ureters: A right hyperdense appearing cyst is seen measuring 17 mm in diameter. This was not well-seen on prior renal ultrasound. Bladder: The bladder is distended. Reproductive organs: Unremarkable. Bowel: Diverticulosis is seen without evidence of diverticulitis. The appendix is normal. A hiatal hernia is seen. Lymph nodes Retroperitoneal: Unremarkable. Pelvic: Unremarkable. Mesenteric: Unremarkable. Peritoneum: Normal. Vessels: Atherosclerotic calcifications are seen. Abdominal wall: A fat-containing umbilical hernia is seen. Soft tissue stranding is seen in the anterior abdominal wall. Bones: Degenerative changes in the visualized spine. Hip arthroplasty is seen on the left. IMPRESSION: 1. No acute abnormalities to explain abdominal pain. 2. Diverticulosis without diverticulitis. The appendix is normal. 3. Hyperdense cystic lesion in the right kidney. Left adrenal nodule is seen. If not previously evaluated, nonemergent adrenal/renal mass protocol CT is recommended. ACT 112: Negative or not required by law. Electronically signed by: Edgardo Wilder M.D. 08/02/2022 6:[address] 08/02/22 17:27 CT head/brain wo con CLINICAL HISTORY: ams Technique: Contiguous axial CT images of the head were acquired from the base of the skull to the vertex without intravenous contrast administration. Images were viewed in brain, subdural and bone windows. Automated dose lowering techniques and/or adjustment according to patient size were utilized for this exam. Comparison: Comparison is made to CT head 02/14/2017 Findings: Areas of decreased attenuation are present in the periventricular and subcortical white matter bilaterally consistent with small vessel ischemic disease. Generalized cerebral atrophy with commensurate enlargement of the ventricles, sulci, and cisterns is also present. There is no acute intracranial hemorrhage or evidence of acute territorial infarction. No shift of the midline structures, mass effect, or extra-axial abnormalities are shown. Atherosclerotic calcifications are present in the intracranial segments of the internal carotid arteries. Imaged portions of the paranasal sinuses and mastoid air cells are clear. The orbits appear normal. There are no acute fractures of the calvaria or scalp swelling. Impression: No acute intracranial hemorrhage, no evidence of acute territorial infarction or other acute intracranial disease process. ACT 112: Negative or not required by law. Electronically signed by: Edgardo Wilder M.D. 08/02/2022 6:26 PM Chest X-Ray 08/02/22 18:45 XR chest 1V portable CLINICAL HISTORY: ams TECHNIQUE: Single frontal radiograph of the chest was obtained. Comparison: Comparison is made to chest radiograph 02/09/2022 FINDINGS: No lines and tubes are seen. Calcified aortic knob is seen. Left lower lung atelectasis is seen. No evidence of pleural effusion or pneumothorax. IMPRESSION: No acute chest disease. ACT 112: Negative or not required by law. Electronically signed by: Edgardo Wilder M.D. 08/02/2022 7:14 PM Chest X-Ray 08/03/22 12:04 XR chest 2V PA/lateral HISTORY: Left lower lobe rales; developing pneumonia? COMPARISON: Chest 08/02/2022. FINDINGS: No pneumothorax. No pleural effusions. The cardiac silhouette remains enlarged. There are dense mitral annular calcifications again noted. Mild interstitial thickening, unchanged. This is likely chronic. No new focal lung consolidations to suggest pneumonia. No evidence for pulmonary edema. IMPRESSION: Stable cardiomegaly. Otherwise, no acute process within the chest. ACT 112: Negative or not required by law. Electronically signed by: Efrain Dugan M.D. 08/03/2022 3:36 PM KUB X-Ray 08/03/22 12:04 KUB CLINICAL HISTORY: diffuse, intermittent abd pain; constipation? COMPARISON STUDY: CT of the abdomen and pelvis August 02, 2022. FINDINGS: Left hip arthroplasty is incidentally noted. There is contrast within the bladder from recent contrast-enhanced CT. There is no evidence for a bowel obstruction. Mild to moderate of stool is noted. Amount of stool is within normal limits. IMPRESSION: 1. No evidence for a bowel obstruction. 2. Mild to moderate amount of stool within the colon and rectum. ACT 112: Negative or not required by law. Electronically signed by: Scottie Nova M.D. 08/03/2022 4:19 PM Brain MRI 08/05/22 14:49 MR brain wo con CLINICAL HISTORY: recent altered MS, dizziness; subacute CVA? TECHNIQUE: Multiplanar and multisequence MR images of the brain were obtained without intravenous contrast. Comparison: Comparison is made to CT head 08/02/2022 FINDINGS: No abnormal restricted diffusion is identified. Foci of T2 and FLAIR hyperintensity are noted in the paraventricular areas consistent with chronic small vessel ischemic disease. Ex vacuo ventriculomegaly and sulcal enlargement is noted compatible with diffuse encephalomalacia. No mass is seen. There is no mass effect or midline shift. There is no evidence of acute intraparenchymal hemorrhage. No extra axial fluid collections are seen. The corpus callosum, pituitary gland, and cerebellar tonsils appear grossly unremarkable. Flow voids of the major intracranial arterial vessels are identified. The imaged portions of the paranasal sinuses, mastoid air cells, and orbits are unr emarkable. IMPRESSION: No acute abnormality and in particular no evidence of acute infarct. ACT 112: Negative or not required by law. Electronically signed by: Edgardo Wilder M.D. 08/05/2022 5:30 PM Hospital Course (1) AMS (altered mental status): Present on admission - resolved, did not recur. etiology? initial concern for UTI; urine cx with lactobacilli - typically not pathogenic but theoretically could have caused some alteration in MS; s/p 3 doses of rocephin which should have been more than adequate Rx for such. elevated ESR but normal CRP. COVID testing negative. CXR without obvious pneumonia. MRI brain negative for acute stroke. hypoperfusion of brain from severe pulmonary HTN? other? regardless of etiology it is resolved and her mental status remained normal the remainder of her stay. B12 and TSH levels in her record have been wnl. for completeness - checked a B1 level and this was pending at time of discharge. (2) Dizziness: Patient had mild orthostasis early in her admission (20+ point drop). gave 500cc of total fluid with resolution of dizziness. diuretics were held. MRI brain without cerebellar CVA, etc. no recurrence of dizziness following the above actions. (3) KALEE (acute kidney injury): Suspect 2nd to IV contrast for her CT scan on day of presentation. Peak creatinine was 2.18. Discharge creatinine was 1.93. She will continue to hold her diuretics at time of discharge. U/a was bland without casts, etc. No obstruction on recent CT abd/pelvis. She will need a repeat BMP within a week of discharge to ensure stability. (4) CAD (coronary artery disease): Minimally elevated troponin this admission. No typical ischemic symptoms but does have inferior ST changes on EKG and continues with vague abd pain, "heartburn episodes" (had multiple times during the admission), and vague feelings of just not feeling well. [address] Ras Meneses - 40-50% LAD lesion, RCA lesion <30%. Repeat echo this admission with preserved EF, small LV cavity, but normal LV wall motion. Host of symptoms - "heartburn", abd pain, etc - could some of these symptoms be "anginal-equivalent?" In light of the above Dr Michael Rios from [facility] Cardiology was consulted. She underwent Lexiscan nuclear stress test. Stress test was negative and felt low risk for ischemia. Perhaps some of her symptoms are related to right heart disease and pulmonary HTN which is severe? Additionally, perhaps the symptoms are truly GI in origin (see #5 below). (5) GERD (gastroesophageal reflux disease): Chronic. but has had "heartburn" frequently at home and also multiple times while hospitalized. Continue Protonix 40mg po BID Added Pepcid 20mg po qHS Added carafate QID and her heartburn did improve with such EGD 09/2021 with normal esophagus and minimal gastritis send to [facility] GI post-d/c due to these ongoing complaints again cardiac w/u for ischemia negative ------ At discharge recommended to stay on the pepcid in addition to the PPI. The carafate will only be for 5 days. (6) Acute UTI (urinary tract infection): 80,000 CFU lactobacillus - usually not a pathogen but can be in very select cases s/p 3 days of rocephin repeat u/a following Rx was wnl possibly the cause of #1 above (7) Abdominal pain: mainly a chronic issue CT abd/pelvis without acute findings KUB x-ray - mild stool only etiology of pain?? consider RUQ u/s to look at gall bladder as gall bladder disease can present atypically in seniors but her pain is often irrespective of eating/meals her chronic GERD is aggressively treated with PPI twice daily [id number] added once daily H2 ree and carafate while here heartburn and vague GI symptoms seemed to improve with the H2 ree and carafate again the carafate will be for 5 days only but asked her to stay on the pepcid with her protonix will send back to [facility] GI post-d/c for this ongoing issue (8) Atrial fibrillation: Continue Carvedilol 3.125mg po BID Continue Apixaban 2.5mg po BID Rates controlled while here (9) Chronic kidney disease, stage IV (severe): baseline CrCl 20s; baseline creatinine 1.4 to 1.8 superimposed KALEE - suspect 2nd to IV CT contrast no obstruction on recent CT gave total 500cc of fluid when KALEE occurred peak Cr 2.1 discharge Cr 1.9 (10) Congestive heart failure: chronic right-sided CHF - compensated while here cont coreg hold on diuretics given her KALEE and recent dizziness will need f/u with her [facility] College Instructor, Dr Rios, after discharge (11) COPD (chronic obstructive pulmonary disease): cxr x 2 without pneumonia cont home inhalers cont NC O2 with sleep and prn formal 2-step on day of discharge - NO NEED for ambulatory O2 (12) Hypertension: BPs had been elevated early in the stay - now improved Continue Carvedilol (13) Hyperlipidemia: Continue Simvastatin 40mg po qHS (14) Diabetes mellitus, type 2: Last HgbA1C = 7.1 on 04/21/22 Cont Lantus (15) Chronic hypoxemic respiratory failure: 2nd to pulmonary HTN stable O2 sats while here cont NC O2 at HS 2-step at discharge was wnl (16) Pulmonary hypertension: severe 2nd to COPD? other? stable O2 sats repeat echo with severe Pulmonary HTN but echo unchanged from 2020 echo again she passed her 2-step ambulatory O2 test she has been worked up for her pulmonary HTN at [facility] but follows locally with [facility] Cardiology, Dr Michael Rios (17) Renal cyst, right: if patient desires can perform dedicated u/s after discharge to gain more information Plan seen by PT/OT - cleared for home of note - in light of CKD stage 4 her gabapentin 600mg TID was renally adjusted and now she is 300mg BID this change may allow her to be less sedated and less risk of peripheral edema also renally adjusted her allopurinol to 100mg/day Total Time Total Time Spent Total Time Spent (In Minutes): 50 Discharge Plan Discharge Items Patient Disposition: Home - Self-Care Reason For Visit: CONFUSION Discharge Diagnosis: 1. confusion - resolved. Exact cause uncertain. MRI brain negative for stroke. Due to UTI? 2. suspected UTI - resolved. 3. chronic abdominal pain - exact cause uncertain; CT scan of the abdomen/pelvis was without any acute findings. ?severe reflux disease; follow- up with Gastroenterology advised. 4. heartburn/chest discomfort - negative stress test. 5. pulmonary hypertension. 6. atrial fibrillation. 7. dizziness - resolved. Activity: Resume your previous activity Non-emergency contact: Primary Care Provider and College Instructor Call non-emergency contact if: you have any medication questions and your symptoms worsen Follow-up/Referrals: Jeyson Peña MD [Primary Care Provider] - (see Dr Peña within 1 week) Lynne Martinez PA-C [Physician Manager Printing] - (see Ms Martinez or one of her associates within 2-3 weeks for your chronic stomach pains) Bob Rios MD [Physician] - (see Dr Rios within 5-7 days ) Diet: Carb Consistent or DM2 and Heart Healthy Addtl Attending Provider Instructions: Mrs Stokes, You were initially hospitalized for an episode of confusion at home. This quickly resolved during your stay. The exact cause was uncertain but possibly due to urinary tract infection. MRI of the brain did not show a stroke or other findings that would have accounted for the confusion. You mentioned several other complaints including dizziness, stomach pain, heartburn, and simply feeling unwell. The dizziness resolved with a modest amount of IV fluid. Your stomach pain and heartburn did improve with addition of carafate (sucralfate) which is an antacid. We treated the UTI with IV antibiotics. To make sure that your stomach pain and heartburn/chest symptoms weren't from yo ur heart we performed a stress test on 08/07. You were seen by Dr Posada from cardiology as well. The stress test returned normal making coronary artery disease (blockages of the arteries of the heart) unlikely to be causing your abdominal & chest symptoms. Dr Rios recommended holding your furosemide diuretic until you see him in the clinic. Finally, your kidney function level diane mildly during the stay. This was possibly due to the IV dye that was used for your CT scan. Your kidney function level is near your typical "normal" level at time of discharge. Recommendations - 1. stomach pain / heartburn - * continue your pantoprazole 40mg twice daily as previous * ADD famotidine 20mg once daily at bedtime; script sent to [facility] * ADD sucralfate 1gram twice daily x 5 days only; script sent to [facility] * follow-up with [facility] Gastroenterology for your stomach pains/heartburn in the next few weeks 2. gabapentin - because of your chronic kidney disease please REDUCE your guille apentin dose to 300mg twice daily. New script sent to [facility]. 3. allopurinol - because of your chronic kidney disease please REDUCE your allopurinol dose to 100mg once daily. 4. per Dr Rios please HOLD your furosemide water pill until you see him in the clinic. If you begin to notice swelling in your legs or worsening shortness of breath, however, please contact his office right away. Follow-up - see separate section Return to [facility] if - * you have worsening shortness of breath or persistent chest pains * you are concerned about worsening fluid retention * you feel dizzy or lightheaded * you have recurrent confusion * you have worsening abdominal pain * any other concerns It was our pleasure to care for you at [facility]! Happy holidays and Dr Danny Rick Pending Studies at Discharge: Yes Studies:: vitamin B1 (thiamine) level Stand-Alone Forms: My [facility] Janalakshmi, Smoking Cessation Medications and DC Order Prescriptions: Continued (DME) lancets [TechLITE Lancets] 30 gauge misc See Rx Instructions .ROUTE .MEDSUPPLY Qty: 400 3RF Rx Instructions: test 4 times daily budesonide-formoterol [Symbicort] 160-4.5 mcg/actuation HFA aerosol inhaler 2 puff inhalation BID Qty: 3 2RF Eliquis 2.5 mg tablet 2.5 mg PO BID Qty: 180 3RF albuterol sulfate 90 mcg/actuation HFA aerosol inhaler 2 puff inhalation Q6H PRN (Reason: shortness of breath or wheezing) Qty: 3 1RF carvedilol 3.125 mg tablet 3.125 mg PO BID Qty: 180 3RF (DME) Portable Oxygen Misc See Rx Instructions .Route Qty: 1 0RF Rx Instructions: Portable o2 concentrator -2LPM via nasal cannula (DME) pen needle, diabetic [BD Ultra-Fine Vielka Pen Needle] 32 gauge x 5/32" needle See Dose Instructions .ROUTE .MEDSUPPLY Qty: 400 3RF Rx Instructions: use 4 pen needles daily insulin aspart U-100 [Novolog Flexpen U-100 Insulin] 100 unit/mL (3 mL) insulin pen 12 - 20 unit SUBCUT TID MDD 60 units 90 Days Qty: 60 3RF insulin glargine [Lantus Solostar U-100 Insulin] 100 unit/mL (3 mL) insulin pen 8 unit subcut HS Qty: 1 2RF (DME) FreeStyle Jelly 2 Sensor Kit See Rx Instructions .Route Rx Instructions: As directed (DME) FreeStyle Jelly 2 Gaffney Misc See Rx Instructions .Route Rx Instructions: As directed levalbuterol HCl 1.25 mg/3 mL solution for nebulization 1.25 mg INH Q4H PRN (Reason: shortness of breath or wheezing) Qty: 90 3RF (DME) blood sugar diagnostic Strip See Rx Instructions .ROUTE .MEDSUPPLY Rx Instructions: Test blood sugar once daily simvastatin 40 mg tablet 40 mg PO HS Qty: 90 3RF glucosamine-chondroitin [Osteo Bi-Flex] 250-200 mg Tablet 2 tab PO BID ferrous sulfate 325 mg (65 mg iron) tablet 325 mg PO QAM travoprost [Travatan Z] 0.004 % Drops 1 drp OPB HS Spiriva with HandiHaler 18 mcg capsule, w/inhalation device 1 cap INHALATION QAM calcium carbonate [Calcium 600] 600 mg calcium (1,500 mg) tablet 600 mg PO QAM pantoprazole 40 mg tablet,delayed release (DR/EC) 40 mg PO BID famotidine [Acid Party Demonstrator (famotidine)] 20 mg tablet 20 mg PO HS Qty: 30 2RF Label Comments: PT STATES NOT TAKING NOW Changed allopurinol 100 mg tablet 100 mg PO QAM Qty: 180 3RF Rx Instructions: 100 X2 TABS QAM gabapentin 300 mg capsule 300 mg PO BID Qty: 60 2RF Rx Instructions: note lower dose Discontinued furosemide [Lasix] 40 mg tablet 40 mg PO Q OTHER DAY PRN (Reason: Edema) Qty: 45 3RF Hold Instructions: recent hospital stay Discharge Orders: Discharge Order (Routine); Ordered 08/08/22 Ordered By: Alejandro Banerjee/Other Patient Handouts: UTIs Understanding Admission Data Admit Date/Time: 08/04/22 12:20 Attending Provider: Alejandro Delgado Admit Provider: Verónica King Primary Care Provider: Jeyson Peña Other Providers: Verónica King ; Bob Rios Other Interventions: Discharge Summary Assessment (RN) Last Done: 08/08/22 14:29 Coding Level of Care Code D/C DAY MANAGEMENT >30 MINS Diagnoses AMS (altered mental status) R41.82 Dizziness R42 KALEE (acute kidney injury) N17.9 CAD (coronary artery disease) I25.10 GERD (gastroesophageal reflux disease) K21.9 Acute UTI (urinary tract infection) N39.0 Abdominal pain R10.9 Atrial fibrillation I48.91 Chronic kidney disease, stage IV (severe) N18.4 Congestive heart failure I50.9 COPD (chronic obstructive pulmonary disease) J44.9 Hypertension I10 Hyperlipidemia E78.5 Diabetes mellitus, type 2 E11.9 Chronic hypoxemic respiratory failure J96.11 Pulmonary hypertension I27.20 Renal cyst, right N28.1
== END 2022-08-08 15:40 | disposition home or self-care (01) | DRG 689 ==
LOC: 2N 15:53 → ED 15:53 → SUATTDRO 20:58 → 2N 22:24 → SUATTDRO 08-04 12:20

== ENCOUNTER 2022-11-29 17:44 | Inpatient (IN) ==
[2022-11-29] MEDS ORDERED: SODIUM CHLORIDE 0.9% 1000ML 1,000 ML IV ONE (18:27)
[2022-11-29 18:28] LABS: Basophils # (auto) 0.04 K/uL (0-0.2); Basophils % (auto) 0.4 %; Eosinophils # (auto) 0.23 K/uL (0-0.50); Eosinophils % (auto) 2.3 %; Hematocrit (blood only) 45.2 % (37.0-47.0); Hemoglobin 15.5 g/dl (12.0-16.0); Immature Granulocytes # (auto) 0.04 K/uL (0.01-0.20); Immature Granulocytes % (auto) 0.4 %; Lymphocytes # (auto) 1.36 K/uL (1.2-3.4); Lymphocytes % (auto) 13.7 %; Mean Corpuscular Hgb Conc 34.3 g/dL (32.0-36.0); Mean Corpuscular Volume 93.2 fL (80.0-100.0); Mean Platelet Volume 11.2 fL (9.4-12.4); Monocytes # (auto) 0.79 K/uL (0.11-0.59); Neutrophils # (auto) 7.44 K/uL (1.40-6.50); Neutrophils % (auto) 75.2 %; Platelet Count 177 K/uL (130-400); RDW Coefficient of Variation 13.4 % (11.5-14.5); RDW Standard Deviation 45.8 fL (36.4-46.3); Red Blood Count 4.85 M/uL (4.20-5.40)
[2022-11-29 18:43] LABS: Albumin Globulin Ratio 1.1 (0.9-2); Albumin Level 4.5 gm/dl (3.4-5.0); BUN Creatinine Ratio 25.6 (10-20); Bilirubin,Total 0.6 mg/dl (0.2-1.0); Calcium 10.1 mg/dl (8.6-10.3); Est GFR (African American) 31.1 ml/min; Est GFR (Non-African American) 26.8 ml/min; Globulin 4.1 gm/dl (2.5-4.0); Potassium 4.1 mmol/L (3.5-5.1); Total Protein 8.6 gm/dl (6.0-8.3)
[2022-11-29] MEDS ORDERED: OPTIRAY 350 100ml IV ONE (19:20)
[2022-11-29 19:27] LABS: Appearance Urine Clear (Clear); Bacteria Urine Automated 1+ (Negative); Bilirubin Urine Negative (Negative); Blood Urine Negative (Negative); Color Urine Yellow; Glucose Urine UA Negative (Negative); Ketones Urine Negative (Negative); Leukocyte Esterase Urine Trace (Negative); Nitrite Urine Negative (Negative); Protein Urine 1+ (Negative); RBC Urine Automated 0-4 /hpf (0-4); Specific Gravity Urine 1.006 (1.000-1.030); Urobilinogen Urine Negative (Negative)
--- NOTE | 2022-11-29 20:24 | CT Scan Report ---
CT SCAN OF THE ABDOMEN AND PELVIS WITH IV CONTRAST CLINICAL HISTORY: Generalized abdominal pain. Bloating COMPARISON STUDY: Abdominal CT dated 09/27/2022. TECHNIQUE: Following the IV administration of 89 cc of Optiray 350, CT scan of the abdomen and pelvi s is performed from the lung bases to the proximal femora. Images are reviewed in the axial, sagittal , and coronal planes. IV contrast was administered without complication. A dose lowering technique wa s utilized adhering to the principles of ALARA. CT DOSE: 310.88 mGy.cm FINDINGS: Lung bases: The heart is enlarged noting a small pericardial effusion. The coronary arteries and mitr al annulus are densely calcified. The lung bases are clear noting bibasilar scarring/atelectasis. A s mall hiatal hernia is noted. Liver: The contrast-enhanced liver is normal in size, contour, and attenuation. There is no intrahepa tic biliary ductal dilatation. The hepatic veins and portal veins are patent. Gallbladder: Unremarkable. Spleen: Normal in size and attenuation. Pancreas: Atrophic and grossly unremarkable. Adrenal glands: Bilateral adrenal adenomas are unchanged. These measure up to 2.2 cm. Kidneys: The contrast enhanced kidneys demonstrate cortical atrophy and are without hydronephrosis. T he kidneys enhance symmetrically. A 1.6 cm indeterminant hypodensity in the right kidney is unchanged from prior studies. This likely represents a complex cyst Abdominal vasculature: The abdominal aorta is normal in course and caliber noting advanced atheroscle rotic calcification. Bowel: There is moderate colonic diverticulosis without CT evidence of acute diverticulitis. No bowel obstruction is seen. Mild fecal retention is noted throughout the colon. The appendix is well-visua lized and normal. Peritoneum: There is no intraperitoneal free air or abdominal ascites. There is a fat-containing umbi lical hernia. Lymphadenopathy: None. Pelvic viscera: Evaluation of the pelvis is degraded by streak artifact from a left hip arthroplasty. The bladder is markedly distended but otherwise normal in appearance. The uterus is normal as visual ized. No adnexal lesion is seen. Skeletal structures: The skeletal structures are osteopenic. There is mild to moderate lumbosacral sp ondylosis. There is a chronic superior endplate compression deformity of L5. No lytic or blastic lesi ons are seen. A left hip arthroplasty is in place. IMPRESSION: 1. No acute infectious or inflammatory findings are identified in the abdomen or pelvis. 2. Marked bladder distention. Correlate clinically for evidence of urinary retention. 3. Colonic diverticulosis without CT evidence of acute diverticulitis. 4. Cardiomegaly. 5. Additional findings as above. ACT 112: Negative or not required by law. Electronically signed by: Shaun Huddleston M.D. 11/29/2022 8:22 PM
[2022-11-29] MEDS ORDERED: CIPROFLOXACIN 500 MG TAB PO STA (20:49)
--- NOTE | 2022-11-29 21:53 | Emergency Department Note ---
Impression & Plan Abdominal pain, Weakness, Acute UTI, Acute urinary retention ED Provider Note NAME: MARCK BLACKWELL AGE: 87 SEX: F : 1935 ARRIVES VIA: Walk-In INFORMANT: Patient, Daughter ED PROVIDER(S): Herbert Bradshaw DO CHIEF COMPLAINT: Abdominal pain and dysuria HPI: Patient is an 87-year-old female with a past medical history of CHF, COPD, CAD, diabetes, anemia and previous UTIs that presents the ER for lower abdominal fullness and discomfort which has been going on for the past several days. She also admits to intermittent dysuria and urgency over the past 2 days. She notes she feels very weak and rundown. She denies any headache or change in vision. No chest pain or shortness of breath. She notes that several days ago she did swallow some water and felt like it went down the wrong way. No other exacerbating or remitting factors. PAST MEDICAL HISTORY:See Below PAST SURGICAL HISTORY:See Below FAMILY HISTORY:See Below SOCIAL HISTORY:See Below HOME MEDICATIONS:See Below ALLERGIES:See Below VITALS:See Below PHYSICAL EXAMINATION: GENERAL: Sitting up in bed, alert, well appearing, well nourished, no distress, non-toxic EYE EXAM: normal conjunctiva. OROPHARYNX: mucous membranes are moist LUNGS: Clear to auscultation. Normal chest wall mechanics HEART: no murmurs, S1 normal and S2 normal ABDOMEN: abdomen soft, minimal tenderness to palpation in lower abdomen, normo- active bowel sounds, no masses, no rebound or guarding. BACK: Back is symmetrical on inspection and there is no deformity, no midline tenderness, no CVA tenderness. UPPER EXTREMITIES: upper extremities are grossly normal. LOWER EXTREMITIES: No pitting edema. NEURO EXAM: Normal sensorium, cranial nerves II-XII grossly intact, normal speech, no gross weakness of arms, no gross weakness of legs. MEDICAL DECISION MAKING: Patient is an 87-year-old female who presents ER for above-stated complaint. IV was established blood work was obtained and external records were reviewed. Lab s show no significant leukocytosis or anemia. BMP with mild hyponatremia at 134. Creatinine 1.68 which is fairly consistent with previous. Lipase was normal. UA with leuks, whites and bacteria with only 5-10 epithelial cells which does favor UTI especially in light of her symptoms. CT abdomen pelvis showed distended bladder but no other acute pathology. Postvoid bladder scan was 500. Gilliam was placed and she had about 550 mL out. She does feel significantly better. She still feels very unsteady on her feet. She was given a dose of Cipro orally as initially she was wanted to go home but due to the weakness and unsteadiness it was felt that she should stay after discussion with family. Discussed with the hospitalist for further evaluation management and treatment Dr. Wayne Oropeza. Triage Nursing notes reviewed. Limited review of prior medical records performed Vital Signs: reviewed and remarkable for HTN Differential diagnosis: Differential diagnoses includes but is not limited to gastritis, peptic ulcer disease, GERD, gallbladder disease, pancreatitis, small bowel obstruction, appendicitis, diverticulitis, hernia, urinary tract infection, torsion, perforation, trauma, infectious. ER treatment provided: See below Diagnostics interpreted by me include EKG and cardiac monitoring as listed below: -Cardiac Monitoring: An order was placed for continuous cardiac monitoring. The monitor shows a rate of 70 with sinus rhythm. -ECG: none -Laboratory studies:Interpreted by me as stated above in MDM and shown below. Imaging studies: Xrays: As interpreted by me: Portable AP upright 1 view of the chest shows no focal infiltrate CTs show: CT abdomen pelvis as described above Consultation(s): Discussed with Dr. 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 KALEE (acute kidney injury) KALEE (acute kidney injury) Anemia Asthma Asthma-COPD overlap syndrome Atrial fibrillation CAD (coronary artery disease) Cardiorenal syndrome Chronic anticoagulation Chronic back pain Chronic hypoxemic respiratory failure Chronic kidney disease, stage III (moderate) Chronic kidney disease, stage IV (severe) Coarse tremors Congestive heart failure COPD (chronic obstructive pulmonary disease) Decreased oral intake Depression Diabetes mellitus, type 2 Dizziness DVT prophylaxis Dysphonia Dyspnea on exertion Encounter for pre-operative examination GERD (gastroesophageal reflux disease) Glaucoma Gout Headache Hiatal hernia History of central retinal artery occlusion History of diverticulitis History of hypothyroidism Hx of gout Hyperlipidemia Hypertension Hyponatremia LPRD (laryngopharyngeal reflux disease) Lumbar spinal stenosis Nausea Nocturnal hypoxemia On home oxygen therapy Osteoarthritis Pulmonary embolism Pulmonary HTN Pulmonary hypertension Pulmonary nodule Seizure Tremor Valvular disease Vitamin D deficiency Surgical History History of cardiac cath History of cataract surgery History of dacryocystorhinostomy History of dilation and curettage History of surgery History of temporal artery biopsy History of tooth extraction History of total hip arthroplasty (~07/16/09) Family History Father Myocardial infarction Diabetes Hypertension Grandfather Stroke Mother Cancer Hearing loss Allergies Aunt Hearing loss Other Asthma Coronary heart disease Heart disease No family history of adverse response to anesthesia No family history of bleeding disorder Denies family history of Ovarian cancer Prostate cancer Breast cancer Lung cancer Colorectal cancer Social History Smoking Status: Never smoker Second Hand Exposure: No; Hx Alcohol Use: No Hx Substance Use: No Preferred Language: Sudanese Communication Ability: Effective Visual Impairment: No Limitations Hearing Ability: Normal Evaporative Cooler Installer Required: No Beliefs That Will Affect Care: None marital status: / Current Living Situation: Family Current Living Situation Comment: Lives with younger sister current occupational status: retired How many Children do You have: 2 Feels Safe at Home: Yes Childhood Exposure to Second-Hand Smoke: No caffeine: Yes Dental Care, Regularly: Yes Physical Activity Frequency: Does not Exercise Seatbelt Use: always Sunscreen Use: Yes Assistive Devices: Cane, Oxygen - at Night and Walker Allergies Allergies Allergy/AdvReac Type Severity Reaction Status Date / Time Sulfa (Sulfonamide Allergy Severe ANAPHYLAXIS; Verified 11/29/22 19:37 Antibiotics) TAKES AMARYL W/O REACTION cephalexin [From Keflex] Allergy Intermediate Headahce; Verified 11/29/22 19:37 Nausea; Rash nystatin Allergy Intermediate Wheezing Verified 11/29/22 19:37 amoxicillin [From Augmentin] Allergy Unknown CAN'T Verified 11/29/22 19:37 REMEMBER clavulanic acid Allergy Unknown CAN'T Verified 11/29/22 19:37 [From Augmentin] REMEMBER thyroid, pork Allergy Unknown "ALL Verified 11/29/22 19:37 THYROID AGENTS"-PT UNSURE OF REACTION Cephalosporins AdvReac Intermediate KEFLEX Verified 11/29/22 19:37 ALLERGY -NAUSEA Home Meds Home Medications Medication Instructions Recorded Confirmed glucosamine-chondroitin 250 mg-200 2 tab PO BID 05/13/18 11/29/22 mg tablet (Osteo Bi-Flex) ferrous sulfate 325 mg (65 mg 325 mg PO QAM 06/24/20 11/29/22 iron) tablet travoprost 0.004 % eye drops 1 drp OPB HS 11/13/20 11/29/22 (Travatan Z) flash glucose scanning reader 07/31/21 11/06/22 (FreeStyle Jelly 2 [place]) flash glucose sensor (FreeStyle 07/31/21 11/06/22 Jelly 2 Sensor kit) calcium carbonate 600 mg calcium 600 mg PO QAM 02/04/22 11/29/22 (1,500 mg) tablet (Calcium) pantoprazole 40 mg tablet,delayed 40 mg PO BID 02/04/22 11/29/22 release tiotropium bromide 18 mcg capsule 1 cap inhalation QAM 02/04/22 11/29/22 with inhalation device (Spiriva with HandiHaler) Saccharomyces boulardii 250 mg 250 mg PO DAILY 09/29/22 11/29/22 capsule (Digest Probiotic (S.boulardii)) blood sugar diagnostic (OneTouch 09/29/22 11/06/22 Ultra Test strips) Previous Rx's Medication Instructions Recorded levalbuterol HCl 1.25 mg/3 mL 1.25 mg (3 mL) inhalation Q4H PRN 07/28/19 solution for nebulization shortness of breath or wheezing #90 mL TechLITE Lancets 30 gauge (lancets) #400 ea 12/26/20 albuterol sulfate 90 mcg/actuation 2 puff inhalation Q6H PRN 09/04/21 aerosol inhaler shortness of breath or wheezing #3 Inhalers Portable Oxygen #1 ea 10/17/21 BD Ultra-Fine Vielka Pen Needle 32 #400 ea 01/15/22 gauge x 5/32" (pen needle, diabetic) Novolog FlexPen U-100 Insulin 100 12 - 20 unit (0.12 - 0.2 mL) 05/22/22 unit/mL (3 mL) subcutaneous subcut TID 90 days #60 mL (insulin aspart U-100) insulin glargine 100 unit/mL (3 8 unit (0.08 mL) subcut HS #1 box 07/20/22 mL) subcutaneous pen (Lantus Solostar U-100 Insulin) simvastatin 40 mg tablet 40 mg PO HS #90 tabs 07/29/22 apixaban 2.5 mg tablet (Eliquis) 2.5 mg PO BID #180 tabs 08/27/22 budesonide-formoterol HFA 160 2 puff inhalation BID #3 Inhalers 10/06/22 mcg-4.5 mcg/actuation aerosol inhaler (Symbicort) carvedilol 3.125 mg tablet 3.125 mg PO BID #180 tabs 10/07/22 allopurinol 100 mg tablet 100 mg PO QAM #90 tabs 11/06/22 famotidine 20 mg tablet (Acid 20 mg PO HS #30 tabs 11/06/22 Production Quality Analyst (famotidine)) furosemide 40 mg tablet 40 mg PO DAILY PRN Edema #90 tabs 11/06/22 gabapentin 300 mg capsule 300 mg PO BID #60 caps 11/06/22 Results & Data (ED) Vital Signs Vital Signs - 24 hr 11/29/22 17:47 11/29/22 18:31 11/29/22 17:45 Temperature 36.4 C L Temperature Source Temporal Artery Scan Pulse Rate 75 Pulse Rate [Finger] 65 Respiratory Rate 18 19 Respiratory Effort / Characteristics Non-Labored Respiratory Depth Normal Normal Respiratory Pattern Regular Blood Pressure 169/97 H Blood Pressure [Right Arm] 169/88 H Blood Pressure Mean 121 Blood Pressure Mean [Right Arm] 115 Blood Pressure Position Sitting Pulse Oximetry 98 96 Oxygen Delivery Method Room Air Room Air Room Air Sepsis Recent Fever Within 48 Hours No Sepsis New/Unexplained Change in Mental Status No Sepsis Action Taken by Nursing No Action Required 11/29/22 19:54 Temperature Temperature Source Pulse Rate Pulse Rate [Finger] 67 Respiratory Rate 17 Respiratory Effort / Characteristics Respiratory Depth Normal Respiratory Pattern Blood Pressure Blood Pressure [Right Arm] 145/93 H Blood Pressure Mean Blood Pressure Mean [Right Arm] 110 Blood Pressure Position Pulse Oximetry 97 Oxygen Delivery Method Room Air Sepsis Recent Fever Within 48 Hours Sepsis New/Unexplained Change in Mental Status Sepsis Action Taken by Nursing Laboratory Data 11/29/22 17:56 11/29/22 17:56 Lab Results 11/29/22 11/29/22 11/29/22 Range/Units 17:56 17:56 19:14 WBC 9.90 (4.8-10.8) K/ul RBC 4.85 (4.20-5.40) M/uL Hgb 15.5 (12.0-16.0) g/dl Hct 45.2 (37.0-47.0) % MCV 93.2 (80.0-100.0) fL MCH 32.0 (25.0-34.0) pg MCHC 34.3 (32.0-36.0) g/dL RDW Std Deviation 45.8 (36.4-46.3) fL RDW Coeff of Terri 13.4 (11.5-14.5) % Plt Count 177 (130-400) K/uL MPV 11.2 (9.4-12.4) fL Immature Gran % (Auto) 0.4 % Neut % (Auto) 75.2 % Lymph % (Auto) 13.7 % [place] % (Auto) 8.0 % Eos % (Auto) 2.3 % Baso % (Auto) 0.4 % Neut # (Auto) 7.44 H (1.40-6.50) K/uL Lymph # (Auto) 1.36 (1.2-3.4) K/uL [place] # (Auto) 0.79 H (0.11-0.59) K/uL Eos # (Auto) 0.23 (0-0.50) K/uL Baso # (Auto) 0.04 (0-0.2) K/uL Immature Gran # (Auto) 0.04 (0.01-0.20) K/uL Sodium 134 L (136-145) mmol/L Potassium 4.1 (3.5-5.1) mmol/L Chloride 93 L (98-107) mmol/L Carbon Dioxide 33 H (21-32) mmol/L Anion Gap 8 (3-11) BUN 43 H (6-23) mg/dl Creatinine 1.68 H (0.6-1.2) mg/dl Est Cr Clr Drug Dosing 18.0 ml/min Est GFR ( Amer) 31.1 ml/min Est GFR (Non-Af Amer) 26.8 ml/min BUN/Creatinine Ratio 25.6 H (10-20) Glucose 97 (70-99(Fasting)) mg/dl Calcium 10.1 (8.6-10.3) mg/dl Total Bilirubin 0.6 (0.2-1.0) mg/dl AST 26 (13-39) U/L ALT 23 (7-52) U/L Alkaline Phosphatase 89 (34-104) U/L Total Protein 8.6 H (6.0-8.3) gm/dl Albumin 4.5 (3.4-5.0) gm/dl Globulin 4.1 H (2.5-4.0) gm/dl Albumin/Globulin Ratio 1.1 (0.9-2) Lipase 33 (11-82) U/L Urine Color Yellow Urine Appearance Clear (Clear) Urine pH 6.0 (4.5-7.5) Ur Specific [place] 1.006 (1.000-1.030) Urine Protein 1+ H (Negative) Urine Glucose (UA) Negative (Negative) Urine Ketones Negative (Negative) Urine Blood Negative (Negative) Urine Nitrite Negative (Negative) Urine Bilirubin Negative (Negative) Urine Urobilinogen Negative (Negative) Ur Leukocyte Esterase Trace H (Negative) Urine WBC (Auto) 10-30 H (0-5) /hpf Urine RBC (Auto) 0-4 (0-4) /hpf U Hyaline Cast (Auto) 1-5 (0-5) /lpf U Epithel Cells (Auto) 5-10 H (0-5) /lpf Urine Bacteria (Auto) 1+ H (Negative) Administered Medications Discontinued Medications Ciprofloxacin (Ciprofloxacin 500 Mg Tab) 500 mg PO NOW STA Stop: 11/29/22 20:50 Last Admin: 11/29/22 21:17 Dose: 500 mg Documented By: Sodium Chloride (Nss 1000ml) 1,000 mls @ 999 mls/hr IV .Q1H1M ONE Stop: 11/29/22 19:27 Last Infusion: 11/29/22 19:42 Dose: 0 mls/hr Documented By: Admin: 11/29/22 18:40 Dose: 999 mls/hr Documented By: Ioversol (Optiray 350 100ml) 89 ml IV ONCE ONE Stop: 11/29/22 19:21 Last Admin: 11/29/22 19:21 Dose: 89 ml Documented By: MAGI Imaging Data Radiologist's Impression: Abdomen/Pelvis CT 11/29/22 18:27 CT SCAN OF THE ABDOMEN AND PELVIS WITH IV CONTRAST CLINICAL HISTORY: Generalized abdominal pain. Bloating COMPARISON STUDY: Abdominal CT dated 09/27/2022. TECHNIQUE: Following the IV administration of 89 cc of Optiray 350, CT scan of the abdomen and pelvis is performed from the lung bases to the proximal femora. Images are reviewed in the axial, sagittal, and coronal planes. IV contrast was administered without complication. A dose lowering technique was utilized adhering to the principles of ALARA. CT DOSE: 310.88 mGy.cm FINDINGS: Lung bases: The heart is enlarged noting a small pericardial effusion. The coronary arteries and mitral annulus are densely calcified. The lung bases are clear noting bibasilar scarring/atelectasis. A small hiatal hernia is noted. Liver: The contrast-enhanced liver is normal in size, contour, and attenuation. There is no intrahepatic biliary ductal dilatation. The hepatic veins and portal veins are patent. Gallbladder: Unremarkable. Spleen: Normal in size and attenuation. Pancreas: Atrophic and grossly unremarkable. Adrenal glands: Bilateral adrenal adenomas are unchanged. These measure up to 2.2 cm. Kidneys: The contrast enhanced kidneys demonstrate cortical atrophy and are without hydronephrosis. The kidneys enhance symmetrically. A 1.6 cm indetermin ant hypodensity in the right kidney is unchanged from prior studies. This likely represents a complex cyst Abdominal vasculature: The abdominal aorta is normal in course and caliber noting advanced atherosclerotic calcification. Bowel: There is moderate colonic diverticulosis without CT evidence of acute diverticulitis. No bowel obstruction is seen. Mild fecal retention is noted throughout the colon. The appendix is well-visualized and normal. Peritoneum: There is no intraperitoneal free air or abdominal ascites. There is a fat-containing umbilical hernia. Lymphadenopathy: None. Pelvic viscera: Evaluation of the pelvis is degraded by streak artifact from a left hip arthroplasty. The bladder is markedly distended but otherwise normal in appearance. The uterus is normal as visualized. No adnexal lesion is seen. Skeletal structures: The skeletal structures are osteopenic. There is mild to moderate lumbosacral spondylosis. There is a chronic superior endplate compression deformity of L5. No lytic or blastic lesions are seen. A left hip arthroplasty is in place. IMPRESSION: 1. No acute infectious or inflammatory findings are identified in the abdomen or pelvis. 2. Marked bladder distention. Correlate clinically for evidence of urinary r etention. 3. Colonic diverticulosis without CT evidence of acute diverticulitis. 4. Cardiomegaly. 5. Additional findings as above. ACT 112: Negative or not required by law. Electronically signed by: Shaun Huddleston M.D. 11/29/2022 8:22 PM Discharge Plan Visit Data Chief Complaint: Abdominal Pain Stated Complaint: ABDOMINAL PAIN ED Provider: Herbert Bradshaw Discharge Problem: Abdominal pain, Weakness, Acute UTI, Acute urinary retention Forms Stand Alone Forms: [facility] [place] [employer] Prescriptions Prescriptions: No Action (DME) lancets [TechLITE Lancets] 30 gauge misc See Rx Instructions .ROUTE .MEDSUPPLY Qty: 400 3RF Rx Instructions: test 4 times daily albuterol sulfate 90 mcg/actuation HFA aerosol inhaler 2 puff inhalation Q6H PRN (Reason: shortness of breath or wheezing) Qty: 3 1RF (DME) Portable Oxygen Misc See Rx Instructions .Route Qty: 1 0RF Rx Instructions: Portable o2 concentrator -2LPM via nasal cannula (DME) pen needle, diabetic [BD Ultra-Fine Vielka Pen Needle] 32 gauge x 5/32" needle See Dose Instructions .ROUTE .MEDSUPPLY Qty: 400 3RF Rx Instructions: use 4 pen needles daily insulin aspart U-100 [Novolog FlexPen U-100 Insulin] 100 unit/mL (3 mL) insulin pen 12 - 20 unit SUBCUT TID MDD 60 units 90 Days Qty: 60 3RF insulin glargine [Lantus Solostar U-100 Insulin] 100 unit/mL (3 mL) insulin pen 8 unit subcut HS Qty: 1 2RF budesonide-formoterol [Symbicort] 160-4.5 mcg/actuation HFA aerosol inhaler 2 puff inhalation BID Qty: 3 2RF carvedilol 3.125 mg tablet 3.125 mg PO BID Qty: 180 3RF (DME) FreeStyle Jelly 2 Sensor Kit See Rx Instructions .Route Rx Instructions: As directed (DME) FreeStyle Jelly 2 [place] Misc See Rx Instructions .Route Rx Instructions: As directed Eliquis 2.5 mg tablet 2.5 mg PO BID Qty: 180 3RF Saccharomyces boulardii [Digest Probiotic (S.boulardii)] 250 mg capsule 250 mg PO DAILY (DME) OneTouch Ultra Test Strip See Rx Instructions .Route Rx Instructions: Test blood sugar qID gabapentin 300 mg capsule 300 mg PO BID Qty: 60 5RF Rx Instructions: note lower dose famotidine [Acid Production Quality Analyst (famotidine)] 20 mg tablet 20 mg PO HS Qty: 30 6RF Patient Comments: PT STATES NOT TAKING NOW allopurinol 100 mg tablet 100 mg PO QAM Qty: 90 3RF furosemide 40 mg tablet 40 mg PO DAILY PRN (Reason: Edema) Qty: 90 1RF levalbuterol HCl 1.25 mg/3 mL solution for nebulization 1.25 mg INH Q4H PRN (Reason: shortness of breath or wheezing) Qty: 90 3RF simvastatin 40 mg tablet 40 mg PO HS Qty: 90 3RF glucosamine-chondroitin [Osteo Bi-Flex] 250-200 mg Tablet 2 tab PO BID ferrous sulfate 325 mg (65 mg iron) tablet 325 mg PO QAM travoprost [Travatan Z] 0.004 % Drops 1 drp OPB HS Spiriva with HandiHaler 18 mcg capsule, w/inhalation device 1 cap INHALATION QAM calcium carbonate [Calcium 600] 600 mg calcium (1,500 mg) tablet 600 mg PO QAM pantoprazole 40 mg tablet,delayed release (DR/EC) 40 mg PO BID Referrals Referrals: Jeyson Peña MD [Primary Care Provider] -
--- NOTE | 2022-11-29 22:39 | History & Physical Report ---
Date of Service November 29, 2022 Assessment & Plan (1) Urinary retention: (2) Acute UTI: (3) Abdominal pain: (4) Weakness: (5) Congestive heart failure: (6) COPD (chronic obstructive pulmonary disease): (7) CAD (coronary artery disease): (8) Atrial fibrillation: (9) Chronic kidney disease, stage IV (severe): (10) Diabetes mellitus, type 2: (11) Depression: (12) Pulmonary HTN: (13) On home oxygen therapy: Plan Urinary retention/urinary tract infection- Marked bladder distention noted on CT Follow urine culture and sensitivity Received Cipro 500 mg p.o. in the ED Placed on levofloxacin 5 mg IV daily starting in the morning Status post 1 L normal saline in the ED Continue Gilliam catheter for now, and will need voiding trials prior to discharge Right lower extremity edema with stage I right heel ulcer- Order lower extremity venous Doppler to assess for possible DVT, although should be less likely with the fact that she is on Eliquis Question whether there may be some compressive lesion in the pelvis Discussed use of compression gear and compression pumps if there is no DVT and no obvious source of obstruction upstream Diabetes mellitus- Hold glargine Placed on Accu-Cheks with NovoLog SSI COPD- Continue usual inhalers Hypertension/atrial fibrillation- Continue apixaban, carvedilol Hyperlipidemia- Continue simvastatin GERD/gastritis- Continue pantoprazole and famotidine Peripheral neuropathy- Continue gabapentin Gout- Continue allopurinol History of Present Illness Chief Complaint: The patient presents to the emergency department with complaint of lower abdominal pain and discomfort urinating for the past several days Primary Care Provider: Jeyson Peña MD The patient is a 87-year-old female with a past medical history including CHF, COPD, CAD, atrial fibrillation, CKD stage IV, diabetes mellitus, right heel ulcer, hyponatremia, anemia, and vitamin D deficiency, urinary tract infection, COVID-19, gastritis, depression, pulmonary hypertension, chronic respiratory failure with hypoxia requiring oxygen at nighttime. The patient presents to the emergency department with symptoms as noted above. She is also had chronic lower extremity edema on the right floor which she reports she has been on Lasix intermittently, and received local wound care Allergies Allergy/AdvReac Type Severity Reaction Status Date / Time Sulfa (Sulfonamide Allergy Severe ANAPHYLAXIS; Verified 11/29/22 19:37 Antibiotics) TAKES AMARYL W/O REACTION cephalexin [From Keflex] Allergy Intermediate Headahce; Verified 11/29/22 19:37 Nausea; Rash nystatin Allergy Intermediate Wheezing Verified 11/29/22 19:37 amoxicillin [From Augmentin] Allergy Unknown CAN'T Verified 11/29/22 19:37 REMEMBER clavulanic acid Allergy Unknown CAN'T Verified 11/29/22 19:37 [From Augmentin] REMEMBER thyroid, pork Allergy Unknown "ALL Verified 11/29/22 19:37 THYROID AGENTS"-PT UNSURE OF REACTION Cephalosporins AdvReac Intermediate KEFLEX Verified 11/29/22 19:37 ALLERGY -NAUSEA Home Medications Medication Instructions Recorded Confirmed Type glucosamine-chondroitin 250 mg-200 2 tab PO BID 05/13/18 11/29/22 History mg tablet (Osteo Bi-Flex) levalbuterol HCl 1.25 mg/3 mL 1.25 mg (3 mL) inhalation Q4H PRN 07/28/19 11/29/22 Rx solution for nebulization shortness of breath or wheezing #90 mL ferrous sulfate 325 mg (65 mg 325 mg PO QAM 06/24/20 11/29/22 History iron) tablet travoprost 0.004 % eye drops 1 drp OPB HS 11/13/20 11/29/22 History (Travatan Z) TechLITE Lancets 30 gauge (lancets) #400 ea 12/26/20 11/06/22 Rx flash glucose scanning reader 07/31/21 11/06/22 History (FreeStyle Jelly 2 [place]) flash glucose sensor (FreeStyle 07/31/21 11/06/22 History Jelly 2 Sensor kit) albuterol sulfate 90 mcg/actuation 2 puff inhalation Q6H PRN 09/04/21 11/29/22 Rx aerosol inhaler shortness of breath or wheezing #3 Inhalers Portable Oxygen #1 ea 10/17/21 11/06/22 Rx BD Ultra-Fine [place] Pen Needle 32 #400 ea 01/15/22 11/06/22 Rx gauge x 5/32" (pen needle, diabetic) calcium carbonate 600 mg calcium 600 mg PO QAM 02/04/22 11/29/22 History (1,500 mg) tablet (Calcium) pantoprazole 40 mg tablet,delayed 40 mg PO BID 02/04/22 11/29/22 History release tiotropium bromide 18 mcg capsule 1 cap inhalation QAM 02/04/22 11/29/22 History with inhalation device (Spiriva with HandiHaler) Novolog FlexPen U-100 Insulin 100 12 - 20 unit (0.12 - 0.2 mL) 05/22/22 11/29/22 Rx unit/mL (3 mL) subcutaneous subcut TID 90 days #60 mL (insulin aspart U-100) insulin glargine 100 unit/mL (3 8 unit (0.08 mL) subcut HS #1 box 07/20/22 11/29/22 Rx mL) subcutaneous pen (Lantus Solostar U-100 Insulin) simvastatin 40 mg tablet 40 mg PO HS #90 tabs 07/29/22 11/29/22 Rx apixaban 2.5 mg tablet (Eliquis) 2.5 mg PO BID #180 tabs 08/27/22 11/29/22 Rx Saccharomyces boulardii 250 mg 250 mg PO DAILY 09/29/22 11/29/22 History capsule (Digest Probiotic (S.boulardii)) blood sugar diagnostic (OneTouch 09/29/22 11/06/22 History Ultra Test strips) budesonide-formoterol HFA 160 2 puff inhalation BID #3 Inhalers 10/06/22 11/29/22 Rx mcg-4.5 mcg/actuation aerosol inhaler (Symbicort) carvedilol 3.125 mg tablet 3.125 mg PO BID #180 tabs 10/07/22 11/29/22 Rx allopurinol 100 mg tablet 100 mg PO QAM #90 tabs 11/06/22 11/29/22 Rx famotidine 20 mg tablet (Acid 20 mg PO HS #30 tabs 11/06/22 11/29/22 Rx Regional Operations Director (famotidine)) furosemide 40 mg tablet 40 mg PO DAILY PRN Edema #90 tabs 11/06/22 11/29/22 Rx gabapentin 300 mg capsule 300 mg PO BID #60 caps 11/06/22 11/29/22 Rx Past Med/Surg History Medical History Abdominal pain Acute exacerbation of chronic obstructive pulmonary disease Adult failure to thrive Adverse reaction to anesthetic agent 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 KALEE (acute kidney injury) KALEE (acute kidney injury) Anemia Asthma Asthma-COPD overlap syndrome Atrial fibrillation CAD (coronary artery disease) Cardiorenal syndrome Chronic anticoagulation Chronic back pain Chronic hypoxemic respiratory failure Chronic kidney disease, stage III (moderate) Chronic kidney disease, stage IV (severe) Coarse tremors Congestive heart failure COPD (chronic obstructive pulmonary disease) Decreased oral intake Depression Diabetes mellitus, type 2 Dizziness DVT prophylaxis Dysphonia Dyspnea on exertion Encounter for pre-operative examination GERD (gastroesophageal reflux disease) Glaucoma Gout Headache Hiatal hernia History of central retinal artery occlusion History of diverticulitis History of hypothyroidism Hx of gout Hyperlipidemia Hypertension Hyponatremia LPRD (laryngopharyngeal reflux disease) Lumbar spinal stenosis Nausea Nocturnal hypoxemia On home oxygen therapy Osteoarthritis Pulmonary embolism Pulmonary HTN Pulmonary hypertension Pulmonary nodule Seizure Tremor Valvular disease Vitamin D deficiency Surgical History History of cardiac cath History of cataract surgery History of dacryocystorhinostomy History of dilation and curettage History of surgery History of temporal artery biopsy History of tooth extraction History of total hip arthroplasty (~07/16/09) Family History Father Myocardial infarction Diabetes Hypertension Grandfather Stroke Mother Cancer Hearing loss Allergies Aunt Hearing loss Other Asthma Coronary heart disease Heart disease No family history of adverse response to anesthesia No family history of bleeding disorder Denies family history of Ovarian cancer Prostate cancer Breast cancer Lung cancer Colorectal cancer Social History Smoking Status: Never smoker Second Hand Exposure: No; Hx Alcohol Use: No Hx Substance Use: No Preferred Language: Armenian Communication Ability: Effective Visual Impairment: No Limitations Hearing Ability: Normal Launch Leader Required: No Beliefs That Will Affect Care: None marital status: / Current Living Situation: Family Current Living Situation Comment: Currenty living with sister. current occupational status: retired How many Children do You have: 2 Feels Safe at Home: Yes Safety Concerns: Feels Safe At This Time Childhood Exposure to Second-Hand Smoke: No caffeine: Yes Dental Care, Regularly: Yes Physical Activity Frequency: Does not Exercise Seatbelt Use: always Sunscreen Use: Yes Assistive Devices: Cane and Glasses Review of Systems Review of Systems: The patient denies chest pain, palpitations, shortness of breath, dyspnea on exertion, cough, sore throat, fevers, chills, sweats, vomiting, diarrhea , constipation, blood in urine or stool, lightheadedness, dizziness, headache, memory loss, loss of consciousness, rash, abnormal bruising or bleeding, imbalance, focal weakness, numbness or tingling in arms or legs, generalized arthralgias or myalgias, back or neck pain, or night sweats. The review of systems is otherwise negative other than for that already noted above, and at least 10 systems have been reviewed. Physical Exam Physical Exam: The patient is awake, alert and oriented 3, well developed and well nourished, normocephalic and atraumatic, lying in bed and in no acute distress. HEENT--PERRL, EOMI, mucous membranes and oropharynx dry. Neck--supple. No JVD. No bruits. Thyroid normal, trachea midline, no adenopathy. Heart--normal S1 and S2. No murmurs, rubs or gallops. Lungs--clear bilaterally, no respiratory distress, no accessory muscle use. Abdomen--normal bowel sounds and soft. Nontender. Nondistended, no hernias or masses, no organomegaly. Extremities--no cyanosis or clubbing. 3+ pretibial and pedal pitting edema on the right, normal on the left. There are good distal pulses b/l. Dermatologic--multiple skin abrasions and bruises on the bilateral lower extremities Neurologic--cranial nerves II through XII grossly intact. Rheumatologic--normal range of motion. Psychiatric--normal affect. Results & Data Results & Data Vital Signs (Past 12 Hours) Vital Signs Temp Pulse Pulse Resp BP BP Pulse Ox 11/29/22 19:54 67 17 145/93 H 97 11/29/22 17:45 11/29/22 18:31 65 19 169/88 H 96 11/29/22 17:47 36.4 C L 75 18 169/97 H 98 O2 Del Method 11/29/22 19:54 Room Air 11/29/22 17:45 Room Air 11/29/22 18:31 Room Air 11/29/22 17:47 Room Air Laboratory Results Laboratory Results WBC 9.90 K/ul (4.8-10.8) 11/29/22 17:56 RBC 4.85 M/uL (4.20-5.40) 11/29/22 17:56 Hgb 15.5 g/dl (12.0-16.0) 11/29/22 17:56 Hct 45.2 % (37.0-47.0) 11/29/22 17:56 MCV 93.2 fL (80.0-100.0) 11/29/22 17:56 MCH 32.0 pg (25.0-34.0) 11/29/22 17:56 MCHC 34.3 g/dL (32.0-36.0) 11/29/22 17:56 RDW Std Deviation 45.8 fL (36.4-46.3) 11/29/22 17:56 RDW Coeff of Terri 13.4 % (11.5-14.5) 11/29/22 17:56 Plt Count 177 K/uL (130-400) 11/29/22 17:56 MPV 11.2 fL (9.4-12.4) 11/29/22 17:56 Immature Gran % (Auto) 0.4 % 11/29/22 17:56 Neut % (Auto) 75.2 % 11/29/22 17:56 Lymph % (Auto) 13.7 % 11/29/22 17:56 Gaines % (Auto) 8.0 % 11/29/22 17:56 Eos % (Auto) 2.3 % 11/29/22 17:56 Baso % (Auto) 0.4 % 11/29/22 17:56 Neut # (Auto) 7.44 K/uL (1.40-6.50) H 11/29/22 17:56 Lymph # (Auto) 1.36 K/uL (1.2-3.4) 11/29/22 17:56 Gaines # (Auto) 0.79 K/uL (0.11-0.59) H 11/29/22 17:56 Eos # (Auto) 0.23 K/uL (0-0.50) 11/29/22 17:56 Baso # (Auto) 0.04 K/uL (0-0.2) 11/29/22 17:56 Immature Gran # (Auto) 0.04 K/uL (0.01-0.20) 11/29/22 17:56 Sodium 134 mmol/L (136-145) L 11/29/22 17:56 Potassium 4.1 mmol/L (3.5-5.1) 11/29/22 17:56 Chloride 93 mmol/L (98-107) L 11/29/22 17:56 Carbon Dioxide 33 mmol/L (21-32) H 11/29/22 17:56 Anion Gap 8 (3-11) 11/29/22 17:56 BUN 43 mg/dl (6-23) H 11/29/22 17:56 Creatinine 1.68 mg/dl (0.6-1.2) H 11/29/22 17:56 Est Cr Clr Drug Dosing 18.0 ml/min 11/29/22 17:56 Est GFR ( Amer) 31.1 ml/min 11/29/22 17:56 Est GFR (Non-Af Amer) 26.8 ml/min 11/29/22 17:56 BUN/Creatinine Ratio 25.6 (10-20) H 11/29/22 17:56 Glucose 97 mg/dl (70-99(Fasting)) 11/29/22 17:56 POC Glucose 189 mg/dl (70-99) H 11/30/22 00:13 Calcium 10.1 mg/dl (8.6-10.3) 11/29/22 17:56 Total Bilirubin 0.6 mg/dl (0.2-1.0) 11/29/22 17:56 AST 26 U/L (13-39) 11/29/22 17:56 ALT 23 U/L (7-52) 11/29/22 17:56 Alkaline Phosphatase 89 U/L (34-104) 11/29/22 17:56 Total Protein 8.6 gm/dl (6.0-8.3) H 11/29/22 17:56 Albumin 4.5 gm/dl (3.4-5.0) 11/29/22 17:56 Globulin 4.1 gm/dl (2.5-4.0) H 11/29/22 17:56 Albumin/Globulin Ratio 1.1 (0.9-2) 11/29/22 17:56 Lipase 33 U/L (11-82) 11/29/22 17:56 Urine Color Yellow 11/29/22 19:14 Urine Appearance Clear (Clear) 11/29/22 19:14 Urine pH 6.0 (4.5-7.5) 11/29/22 19:14 Ur Specific [place] 1.006 (1.000-1.030) 11/29/22 19:14 Urine Protein 1+ (Negative) H 11/29/22 19:14 Urine Glucose (UA) Negative (Negative) 11/29/22 19:14 Urine Ketones Negative (Negative) 11/29/22 19:14 Urine Blood Negative (Negative) 11/29/22 19:14 Urine Nitrite Negative (Negative) 11/29/22 19:14 Urine Bilirubin Negative (Negative) 11/29/22 19:14 Urine Urobilinogen Negative (Negative) 11/29/22 19:14 Ur Leukocyte Esterase Trace (Negative) H 11/29/22 19:14 Urine WBC (Auto) 10-30 /hpf (0-5) H 11/29/22 19:14 Urine RBC (Auto) 0-4 /hpf (0-4) 11/29/22 19:14 U Hyaline Cast (Auto) 1-5 /lpf (0-5) 11/29/22 19:14 U Epithel Cells (Auto) 5-10 /lpf (0-5) H 11/29/22 19:14 Urine Bacteria (Auto) 1+ (Negative) H 11/29/22 19:14 SARS-CoV-2, RNA, NAAT NEGATIVE (NEGATIVE) 11/29/22 21:55 Impressions Abdomen/Pelvis CT 11/29/22 18:27 CT SCAN OF THE ABDOMEN AND PELVIS WITH IV CONTRAST CLINICAL HISTORY: Generalized abdominal pain. Bloating COMPARISON STUDY: Abdominal CT dated 09/27/2022. TECHNIQUE: Following the IV administration of 89 cc of Optiray 350, CT scan of the abdomen and pelvis is performed from the lung bases to the proximal femora. Images are reviewed in the axial, sagittal, and coronal planes. IV contrast was administered without complication. A dose lowering technique was utilized adhering to the principles of ALARA. CT DOSE: 310.88 mGy.cm FINDINGS: Lung bases: The heart is enlarged noting a small pericardial effusion. The co ronary arteries and mitral annulus are densely calcified. The lung bases are clear noting bibasilar scarring/atelectasis. A small hiatal hernia is noted. Liver: The contrast-enhanced liver is normal in size, contour, and attenuation. There is no intrahepatic biliary ductal dilatation. The hepatic veins and portal veins are patent. Gallbladder: Unremarkable. Spleen: Normal in size and attenuation. Pancreas: Atrophic and grossly unremarkable. Adrenal glands: Bilateral adrenal adenomas are unchanged. These measure up to 2.2 cm. Kidneys: The contrast enhanced kidneys demonstrate cortical atrophy and are without hydronephrosis. The kidneys enhance symmetrically. A 1.6 cm indeterminant hypodensity in the right kidney is unchanged from prior studies. This likely represents a complex cyst Abdominal vasculature: The abdominal aorta is normal in course and caliber noting advanced atherosclerotic calcification. Bowel: There is moderate colonic diverticulosis without CT evidence of acute diverticulitis. No bowel obstruction is seen. Mild fecal retention is noted throughout the colon. The appendix is well-visualized and normal. Peritoneum: There is no intraperitoneal free air or abdominal ascites. There is a fat-containing umbilical hernia. Lymphadenopathy: None. Pelvic viscera: Evaluation of the pelvis is degraded by streak artifact from a left hip arthroplasty. The bladder is markedly distended but otherwise normal in appearance. The uterus is normal as visualized. No adnexal lesion is seen. Skeletal structures: The skeletal structures are osteopenic. There is mild to moderate lumbosacral spondylosis. There is a chronic superior endplate compression deformity of L5. No lytic or blastic lesions are seen. A left hip arthroplasty is in place. IMPRESSION: 1. No acute infectious or inflammatory findings are identified in the abdomen or pelvis. 2. Marked bladder distention. Correlate clinically for evidence of urinary retention. 3. Colonic diverticulosis without CT evidence of acute diverticulitis. 4. Cardiomegaly. 5. Additional findings as above. ACT 112: Negative or not required by law. Electronically signed by: Shaun Huddleston M.D. 11/29/2022 8:22 PM Chest X-Ray 11/29/22 20:49 SINGLE VIEW CHEST CLINICAL HISTORY: Dysphagia. FINDINGS: An AP, portable, upright chest radiograph is compared to study dated 08/03/2022 and correlated with chest CT dated 01/14/2021. The heart is enlarged noting atherosclerotic calcification of the thoracic aorta. The pulmonary vasculature is noncongested. Chronic interstitial thickening is similar to previous. There is bibasilar scarring/atelectasis. The lungs and pleural spaces are clear. No pneumothorax is seen. The skeletal structures are osteopenic. The bony thorax is grossly intact. IMPRESSION: Cardiomegaly with no active disease in the chest. ACT 112: Negative or not required by law. Electronically signed by: Shaun Huddleston M.D. 11/29/2022 10:55 PM Code Status & VTE Plan Code Status Full code VTE Prophylaxis Plan VTE Prophylaxis will be ordered: Yes PG Care Time/CCT Total # of Minutes Spent Total Time Spent with Patient: Total time spent is greater than 50% in coordination of care (as documented) at patient's floor/unit and/or counseling patient: Coding Level of Care Code 91463 INT INP/OBS CARE 3/75MIN Diagnoses Urinary retention R33.9 Acute UTI N39.0 Abdominal pain R10.9 Weakness R53.1 Congestive heart failure I50.9 COPD (chronic obstructive pulmonary disease) J44.9 CAD (coronary artery disease) I25.10 Atrial fibrillation I48.91 Chronic kidney disease, stage IV (severe) N18.4 Diabetes mellitus, type 2 E11.9 Depression F32.9 Pulmonary HTN I27.20 On home oxygen therapy Z99.81
--- NOTE | 2022-11-29 22:57 | XRay Report ---
SINGLE VIEW CHEST CLINICAL HISTORY: Dysphagia. FINDINGS: An AP, portable, upright chest radiograph is compared to study dated 08/03/2022 and correla kisha with chest CT dated 01/14/2021. The heart is enlarged noting atherosclerotic calcification of the t horacic aorta. The pulmonary vasculature is noncongested. Chronic interstitial thickening is similar to previous. There is bibasilar scarring/atelectasis. The lungs and pleural spaces are clear. No pneu mothorax is seen. The skeletal structures are osteopenic. The bony thorax is grossly intact. IMPRESSION: Cardiomegaly with no active disease in the chest. ACT 112: Negative or not required by law. Electronically signed by: Shaun Huddleston M.D. 11/29/2022 10:55 PM
[2022-11-29] MEDS ORDERED: POLYETHYLENE (MIRALAX) 17 GM PACK PO PRN (23:38)
[2022-11-29] MEDS ORDERED: GLUCOSE 40% GEL 15 GM TUBE PO PRN (23:38)
[2022-11-29] MEDS ORDERED: GLUCAGON FOR INJ 1 MG VIAL SQ PRN (23:38)
[2022-11-29] MEDS ORDERED: CARBOHYDRATES FOR HYPOGLYCEMIA PO PRN (23:38)
[2022-11-29] MEDS ORDERED: ALBUTEROL HFA 8 GM INHALER INH PRN (23:38)
[2022-11-29] MEDS ORDERED: LEVALBUTEROL HCL 1.25 MG/3 ML NEB INH PRN (23:38)
[2022-11-29] MEDS ORDERED: GLUCOSE 10 TAB/TUBE PO PRN (23:38)
[2022-11-29] MEDS ORDERED: DEXTROSE 50% 50 ML SYRINGE IV PRN (23:38)
[2022-11-30] MEDS: PANTOprazole 40 MG TAB PO SCH ×3 (00:39→20:32)
[2022-11-30] MEDS: APIXABAN 2.5 MG TAB PO SCH ×3 (00:40→20:33)
[2022-11-30] MEDS: carvediloL 3.125 MG TAB PO SCH ×3 (00:40→20:33)
--- NOTE | 2022-11-30 06:14 | Ultrasound Report ---
Exam(s): US VENOUS RIGHT LOWER EXTREMITY EXAM: US Duplex Right Lower Extremity Veins CLINICAL HISTORY: Reason for exam: swelling RLE. TECHNIQUE: Real-time duplex ultrasound scan of the right lower extremity veins integrating B-mode two-dimensional vascular structure, Doppler spectral analysis, color flow Doppler imaging and compression. COMPARISON: No relevant prior studies available. FINDINGS: Deep veins: Unremarkable. No DVT in the visualized common femoral, femoral, proximal deep femoral or popliteal veins. The veins demonstrate normal color flow, are normally compressible, with normal phasic flow and/or augmentation response. Superficial veins: Unremarkable. No thrombus in the visualized great saphenous vein. Soft tissues: Subcutaneous tissue edema seen in the right calf pain. No popliteal cyst. IMPRESSION: No acute findings in the right lower extremity veins. Electronically signed by: Aashish Horta MD 11/30/22 06:14 AM
[2022-11-30] MEDS ORDERED: levoFLOXacin/D5W 500 MG/100 ML BAG IV SCH (08:00)
[2022-11-30 08:11] LABS: Estimated Average Glucose 177 mg/dl; Hemoglobin A1C 7.8 % (4.5-5.6)
[2022-11-30] MEDS: SACCHAROMYCES BOULARDII 250 MG CAP PO SCH (08:18)
[2022-11-30] MEDS: GABAPENTIN 300 MG CAP PO SCH ×2 (08:18→20:33)
[2022-11-30] MEDS: FERROUS SULFATE 325 MG TAB PO SCH (08:18)
[2022-11-30] MEDS: allopurinoL 100 MG TAB PO SCH (08:18)
[2022-11-30] MEDS: FLUTICASONE/VILANTEROL 200/25MCG 14 PUFFS/INHALER INH SCH (08:19)
[2022-11-30] MEDS: UMECLIDINIUM BROMIDE 62.5MCG/BLISTER 7 PUFFS/INHALER INH SCH (08:19)
[2022-11-30] MEDS: INSULIN ASPART PER UNIT CHARGE SC SCH ×4 (08:54→21:44)
[2022-11-30] MEDS ORDERED: NON-FORMULARY MEDICATION (Glucosamine-Chondroitin [Osteo Bi-Flex] 250-200 mg Tablet) PO SCH (09:00)
--- NOTE | 2022-11-30 17:33 | Hospitalist Progress Note ---
Date of Service November 30, 2022 Assessment & Plan (1) Urinary retention: Plan: Urinary retention/urinary tract infection- Marked bladder distention noted on CT Follow urine culture and sensitivity Received Cipro 500 mg p.o. in the ED Placed on levofloxacin 5 mg IV daily Status post 1 L normal saline in the ED Continue Gilliam catheter for now, and will need voiding trials prior to discharge (2) Acute UTI: Plan: See above (3) Abdominal pain: Plan: Secondary to urinary retention and UTI (4) Weakness: (5) Congestive heart failure: Plan: Right lower extremity edema with stage I right heel ulcer- Right lower extremity venous duplex was negative for DVT. Question whether there may be some compressive lesion in the pelvis Discussed use of compression gear and compression pumps if there is no DVT and no obvious source of obstruction upstream (6) COPD (chronic obstructive pulmonary disease): Plan: Continue usual inhalers No acute exacerbation at this time (7) CAD (coronary artery disease): Plan: Continue simvastatin (8) Atrial fibrillation: Plan: Continue apixaban, carvedilol (9) Chronic kidney disease, stage IV (severe): Plan: Creatinine at baseline (10) Diabetes mellitus, type 2: Plan: Hold glargine Placed on Accu-Cheks with NovoLog SSI (11) Depression: (12) Pulmonary HTN: (13) On home oxygen therapy: Plan Consult PT/OT copy manager on board Admission and Anticipated Discharge Date Admission Date: November 29, 2022 Subjective Patient feels better overall compared to when she first came in. Denies chest pain or shortness of breath. Review of Systems Review of Systems: All systems reviewed & are unremarkable except as noted in Subjective Physical Exam Physical Exam: General: Awake, conversant Heart: S1, S2/regular rate and rhythm, no murmur rubs or gallops Lungs: Clear to auscultation bilaterally. Normal effort Abdomen: Soft/nontender/nondistended. No hepatosplenomegaly Extremities: No clubbing/cyanosis. Right leg 1+ edema Behavior: Appropriate, cooperative Results & Data Results & Data Vital Signs (Past 12 Hours) Vital Signs Temp Pulse Resp BP Pulse Ox O2 Del Method O2 Flow Rate 11/30/22 15:48 36.4 C L 72 20 133/76 92 Room Air 11/30/22 09:52 Room Air 11/30/22 07:08 36.5 C 61 18 131/72 97 Nasal Cannula 1 Laboratory Results Abnormal lab results 11/29/22 11/29/22 11/29/22 Range/Units 17:55 17:56 17:56 Neut # (Auto) 7.44 H (1.40-6.50) K/uL [place] # (Auto) 0.79 H (0.11-0.59) K/uL Sodium 134 L (136-145) mmol/L Chloride 93 L (98-107) mmol/L Carbon Dioxide 33 H (21-32) mmol/L BUN 43 H (6-23) mg/dl Creatinine 1.68 H (0.6-1.2) mg/dl BUN/Creatinine Ratio 25.6 H (10-20) POC Glucose (70-99) mg/dl Hemoglobin A1c 7.8 H (4.5-5.6) % Total Protein 8.6 H (6.0-8.3) gm/dl Globulin 4.1 H (2.5-4.0) gm/dl Urine Protein (Negative) Ur Leukocyte Esterase (Negative) Urine WBC (Auto) (0-5) /hpf U Epithel Cells (Auto) (0-5) /lpf Urine Bacteria (Auto) (Negative) 11/29/22 11/30/22 11/30/22 Range/Units 19:14 00:13 08:12 Neut # (Auto) (1.40-6.50) K/uL [place] # (Auto) (0.11-0.59) K/uL Sodium (136-145) mmol/L Chloride (98-107) mmol/L Carbon Dioxide (21-32) mmol/L BUN (6-23) mg/dl Creatinine (0.6-1.2) mg/dl BUN/Creatinine Ratio (10-20) POC Glucose 189 H 134 H (70-99) mg/dl Hemoglobin A1c (4.5-5.6) % Total Protein (6.0-8.3) gm/dl Globulin (2.5-4.0) gm/dl Urine Protein 1+ H (Negative) Ur Leukocyte Esterase Trace H (Negative) Urine WBC (Auto) 10-30 H (0-5) /hpf U Epithel Cells (Auto) 5-10 H (0-5) /lpf Urine Bacteria (Auto) 1+ H (Negative) 11/30/22 11/30/22 Range/Units 12:30 17:00 Neut # (Auto) (1.40-6.50) K/uL [place] # (Auto) (0.11-0.59) K/uL Sodium (136-145) mmol/L Chloride (98-107) mmol/L Carbon Dioxide (21-32) mmol/L BUN (6-23) mg/dl Creatinine (0.6-1.2) mg/dl BUN/Creatinine Ratio (10-20) POC Glucose 192 H 212 H (70-99) mg/dl Hemoglobin A1c (4.5-5.6) % Total Protein (6.0-8.3) gm/dl Globulin (2.5-4.0) gm/dl Urine Protein (Negative) Ur Leukocyte Esterase (Negative) Urine WBC (Auto) (0-5) /hpf U Epithel Cells (Auto) (0-5) /lpf Urine Bacteria (Auto) (Negative) Diagnostic Findings Abdomen/Pelvis CT 11/29/22 18:27 CT SCAN OF THE ABDOMEN AND PELVIS WITH IV CONTRAST CLINICAL HISTORY: Generalized abdominal pain. Bloating COMPARISON STUDY: Abdominal CT dated 09/27/2022. TECHNIQUE: Following the IV administration of 89 cc of Optiray 350, CT scan of the abdomen and pelvis is performed from the lung bases to the proximal femora. Images are reviewed in the axial, sagittal, and coronal planes. IV contrast was administered without complication. A dose lowering technique was utilized adhering to the principles of ALARA. CT DOSE: 310.88 mGy.cm FINDINGS: Lung bases: The heart is enlarged noting a small pericardial effusion. The coronary arteries and mitral annulus are densely calcified. The lung bases are clear noting bibasilar scarring/atelectasis. A small hiatal hernia is noted. Liver: The contrast-enhanced liver is normal in size, contour, and attenuation. There is no intrahepatic biliary ductal dilatation. The hepatic veins and portal veins are patent. Gallbladder: Unremarkable. Spleen: Normal in size and attenuation. Pancreas: Atrophic and grossly unremarkable. Adrenal glands: Bilateral adrenal adenomas are unchanged. These measure up to 2.2 cm. Kidneys: The contrast enhanced kidneys demonstrate cortical atrophy and are wit hout hydronephrosis. The kidneys enhance symmetrically. A 1.6 cm indeterminant hypodensity in the right kidney is unchanged from prior studies. This likely represents a complex cyst Abdominal vasculature: The abdominal aorta is normal in course and caliber noting advanced atherosclerotic calcification. Bowel: There is moderate colonic diverticulosis without CT evidence of acute diverticulitis. No bowel obstruction is seen. Mild fecal retention is noted throughout the colon. The appendix is well-visualized and normal. Peritoneum: There is no intraperitoneal free air or abdominal ascites. There is a fat-containing umbilical hernia. Lymphadenopathy: None. Pelvic viscera: Evaluation of the pelvis is degraded by streak artifact from a left hip arthroplasty. The bladder is markedly distended but otherwise normal in appearance. The uterus is normal as visualized. No adnexal lesion is seen. Skeletal structures: The skeletal structures are osteopenic. There is mild to moderate lumbosacral spondylosis. There is a chronic superior endplate compression deformity of L5. No lytic or blastic lesions are seen. A left hip arthroplasty is in place. IMPRESSION: 1. No acute infectious or inflammatory findings are identified in the abdomen or pelvis. 2. Marked bladder distention. Correlate clinically for evidence of urinary retention. 3. Colonic diverticulosis without CT evidence of acute diverticulitis. 4. Cardiomegaly. 5. Additional findings as above. ACT 112: Negative or not required by law. Electronically signed by: Shaun Huddleston M.D. 11/29/2022 8:22 PM Chest X-Ray 11/29/22 20:49 SINGLE VIEW CHEST CLINICAL HISTORY: Dysphagia. FINDINGS: An AP, portable, upright chest radiograph is compared to study dated 08/03/2022 and correlated with chest CT dated 01/14/2021. The heart is enlarged noting atherosclerotic calcification of the thoracic aorta. The pulmonary vasculature is noncongested. Chronic interstitial thickening is similar to previous. There is bibasilar scarring/atelectasis. The lungs and pleural spaces are clear. No pneumothorax is seen. The skeletal structures are osteopenic. The bony thorax is grossly intact. IMPRESSION: Cardiomegaly with no active disease in the chest. ACT 112: Negative or not required by law. Electronically signed by: Shaun Huddleston M.D. 11/29/2022 10:55 PM Venous Doppler Study 11/30/22 00:42 Exam(s): US VENOUS RIGHT LOWER EXTREMITY EXAM: US Duplex Right Lower Extremity Veins CLINICAL HISTORY: Reason for exam: swelling RLE. TECHNIQUE: Real-time duplex ultrasound scan of the right lower extremity veins integrating B-mode two-dimensional vascular structure, Doppler spectral analysis, color flow Doppler imaging and compression. COMPARISON: No relevant prior studies available. FINDINGS: Deep veins: Unremarkable. No DVT in the visualized common femoral, femoral, proximal deep femoral or popliteal veins. The veins demonstrate normal color flow, are normally compressible, with normal phasic flow and/or augmentation response. Superficial veins: Unremarkable. No thrombus in the visualized great saphenous vein. Soft tissues: Subcutaneous tissue edema seen in the right calf pain. No popliteal cyst. IMPRESSION: No acute findings in the right lower extremity veins. Electronically signed by: Aashish Horta MD 11/30/22 06:14 AM PG Care Time/CCT Total # of Minutes Spent Total Time Spent with Patient: Total time spent is greater than 50% in coordination of care (as documented) at patient's floor/unit and/or counseling patient: Coding Level of Care Code 51544 SUB INP/OBS CARE 2/35MIN Diagnoses Urinary retention R33.9 Acute UTI N39.0 Abdominal pain R10.9 Weakness R53.1 Congestive heart failure I50.9 COPD (chronic obstructive pulmonary disease) J44.9 CAD (coronary artery disease) I25.10 Atrial fibrillation I48.91 Chronic kidney disease, stage IV (severe) N18.4 Diabetes mellitus, type 2 E11.9 Depression F32.9 Pulmonary HTN I27.20 On home oxygen therapy Z99.81
[2022-11-30] MEDS: FAMOTIDINE 20 MG TAB PO SCH (20:32)
[2022-11-30] MEDS: SIMVASTATIN 40 MG TAB PO SCH (20:34)
[2022-11-30] MEDS: TRAVOPROST Z 0.004% OPH SOLN 2.5 ML BTL OPB SCH (20:34)
[2022-11-30] MEDS: LANTUS PER UNIT CHARGE SQ SCH (20:39)
[2022-12-01 07:57] LABS: Creatinine Clr Calc Pharmacy 15.9 ml/min; Est GFR (African American) 26.8 ml/min; Est GFR (Non-African American) 23.1 ml/min
[2022-12-01] MEDS: UMECLIDINIUM BROMIDE 62.5MCG/BLISTER 7 PUFFS/INHALER INH SCH (08:01)
[2022-12-01] MEDS: FLUTICASONE/VILANTEROL 200/25MCG 14 PUFFS/INHALER INH SCH (08:01)
[2022-12-01] MEDS: GABAPENTIN 300 MG CAP PO SCH ×2 (08:02→20:41)
[2022-12-01] MEDS: carvediloL 3.125 MG TAB PO SCH ×2 (08:02→20:43)
[2022-12-01] MEDS: APIXABAN 2.5 MG TAB PO SCH ×2 (08:02→20:42)
[2022-12-01] MEDS: FERROUS SULFATE 325 MG TAB PO SCH (08:02)
[2022-12-01] MEDS: allopurinoL 100 MG TAB PO SCH (08:02)
[2022-12-01] MEDS: PANTOprazole 40 MG TAB PO SCH ×2 (08:02→20:41)
[2022-12-01] MEDS: SACCHAROMYCES BOULARDII 250 MG CAP PO SCH (08:02)
[2022-12-01] MEDS: INSULIN ASPART PER UNIT CHARGE SC SCH ×4 (09:22→20:42)
[2022-12-01] MEDS: ONDANSETRON INJ 2 MG/ML 2 ML VIAL IV PRN ×2 (09:23→20:40)
[2022-12-01] MEDS: ACETAMINOPHEN 325 MG TAB PO PRN ×2 (09:23→20:40)
--- NOTE | 2022-12-01 15:06 | Hospitalist Progress Note ---
Date of Service December 01, 2022 Assessment & Plan (1) Urinary retention: Plan: Urinary retention/urinary tract infection- Marked bladder distention noted on CT Urine culture growing alpha strep, not Enterococcus Decided to switch from levofloxacin to Augmentin Continue Gilliam catheter for now, and will need voiding trials prior to discharge (2) Acute UTI: Plan: See above (3) Abdominal pain: Plan: Secondary to urinary retention and UTI (4) Weakness: Plan: Consulted PT/OT. Case management on board (5) Congestive heart failure: Plan: Right lower extremity edema with stage I right heel ulcer- Right lower extremity venous duplex was negative for DVT. Question whether there may be some compressive lesion in the pelvis Discussed use of compression gear and compression pumps since there is no DVT and no obvious source of obstruction upstream (6) COPD (chronic obstructive pulmonary disease): Plan: Continue usual inhalers No acute exacerbation at this time (7) CAD (coronary artery disease): Plan: Continue simvastatin (8) Atrial fibrillation: Plan: Continue apixaban, carvedilol (9) Chronic kidney disease, stage IV (severe): Plan: Creatinine at baseline (10) Diabetes mellitus, type 2: Plan: Hold glargine Placed on Accu-Cheks with NovoLog SSI (11) Depression: (12) Pulmonary HTN: (13) On home oxygen therapy: (14) Pressure ulcer of right heel, stage 2: Plan: Wound care per nursing Present on Admission?: Yes Plan Consult PT/OT manager animation on board Admission and Anticipated Discharge Date Admission Date: November 29, 2022 Subjective Patient feels better today. No chest pain or shortness of breath. Review of Systems Review of Systems: All systems reviewed & are unremarkable except as noted in Subjective Physical Exam Physical Exam: General: Awake, conversant Heart: S1, S2/regular rate and rhythm, no murmur rubs or gallops Lungs: Clear to auscultation bilaterally. Normal effort Abdomen: Soft/nontender/nondistended. No hepatosplenomegaly Extremities: No clubbing/cyanosis. Right leg 1+ edema Behavior: Appropriate, cooperative Results & Data Results & Data Vital Signs (Past 12 Hours) Vital Signs Temp Pulse Resp BP Pulse Ox O2 Del Method O2 Flow Rate 12/01/22 14:39 95 12/01/22 10:37 36.3 C L 62 16 110/66 96 Room Air 12/01/22 08:04 Nasal Cannula 2 12/01/22 07:33 36.3 C L 60 16 136/79 97 Nasal Cannula 2 PG Care Time/CCT Total # of Minutes Spent Total Time Spent with Patient: Total time spent is greater than 50% in coordination of care (as documented) at patient's floor/unit and/or counseling patient: Coding Level of Care Code 04396 SUB INP/OBS CARE 2/35MIN Diagnoses Urinary retention R33.9 Acute UTI N39.0 Abdominal pain R10.9 Weakness R53.1 Congestive heart failure I50.9 COPD (chronic obstructive pulmonary disease) J44.9 CAD (coronary artery disease) I25.10 Atrial fibrillation I48.91 Chronic kidney disease, stage IV (severe) N18.4 Diabetes mellitus, type 2 E11.9 Depression F32.9 Pulmonary HTN I27.20 On home oxygen therapy Z99.81 Pressure ulcer of right heel, stage 2 L89.612
[2022-12-01] MEDS: AMOXICILLIN/CLAVULANATE 250 MG TAB PO SCH (17:05)
[2022-12-01] MEDS: FAMOTIDINE 20 MG TAB PO SCH (20:41)
[2022-12-01] MEDS: LANTUS PER UNIT CHARGE SQ SCH (20:41)
[2022-12-01] MEDS: SIMVASTATIN 40 MG TAB PO SCH (20:43)
[2022-12-01] MEDS: TRAVOPROST Z 0.004% OPH SOLN 2.5 ML BTL OPB SCH (20:43)
[2022-12-02] MEDS: ACETAMINOPHEN 325 MG TAB PO PRN (05:54)
[2022-12-02] MEDS: ONDANSETRON INJ 2 MG/ML 2 ML VIAL IV PRN (05:54)
[2022-12-02 08:11] LABS: Creatinine Clr Calc Pharmacy 14.4 ml/min; Est GFR (African American) 23.8 ml/min; Est GFR (Non-African American) 20.5 ml/min
[2022-12-02] MEDS: INSULIN ASPART PER UNIT CHARGE SC SCH ×4 (09:45→20:03)
[2022-12-02] MEDS: allopurinoL 100 MG TAB PO SCH (09:47)
[2022-12-02] MEDS: AMOXICILLIN/CLAVULANATE 250 MG TAB PO SCH ×2 (09:47→18:22)
[2022-12-02] MEDS: SACCHAROMYCES BOULARDII 250 MG CAP PO SCH (09:47)
[2022-12-02] MEDS: GABAPENTIN 300 MG CAP PO SCH ×2 (09:47→20:05)
[2022-12-02] MEDS: PANTOprazole 40 MG TAB PO SCH ×2 (09:48→20:05)
[2022-12-02] MEDS: FERROUS SULFATE 325 MG TAB PO SCH (09:48)
[2022-12-02] MEDS: APIXABAN 2.5 MG TAB PO SCH ×2 (09:48→20:05)
[2022-12-02] MEDS: carvediloL 3.125 MG TAB PO SCH ×2 (09:48→20:06)
[2022-12-02] MEDS: UMECLIDINIUM BROMIDE 62.5MCG/BLISTER 7 PUFFS/INHALER INH SCH (09:48)
[2022-12-02] MEDS: FLUTICASONE/VILANTEROL 200/25MCG 14 PUFFS/INHALER INH SCH (09:49)
[2022-12-02 12:38] LABS: BUN Creatinine Ratio 19.8 (10-20); Calcium 8.7 mg/dl (8.6-10.3); Creatinine Clr Calc Pharmacy 14.6 ml/min; Est GFR (African American) 24.2 ml/min; Est GFR (Non-African American) 20.9 ml/min; Potassium 4.4 mmol/L (3.5-5.1)
[2022-12-02] MEDS: POLYETHYLENE (MIRALAX) 17 GM PACK PO SCH (13:23)
--- NOTE | 2022-12-02 14:57 | Hospitalist Progress Note ---
Date of Service December 02, 2022 Assessment & Plan (1) Urinary retention: Plan: Urinary retention/urinary tract infection- Marked bladder distention noted on CT Urine culture growing alpha strep, not Enterococcus Now on p.o. Augmentin Urinary retention resolved. Gilliam catheter removed. Patient voiding spontaneously. (2) Acute UTI: Plan: See above (3) Abdominal pain: Plan: Secondary to urinary retention and UTI Resolved (4) Weakness: Plan: Consulted PT/OT. Case management on board Per PT/OT patient can go home with home health services. (5) Congestive heart failure: Plan: Right lower extremity edema with stage I right heel ulcer- Right lower extremity venous duplex was negative for DVT. Question whether there may be some compressive lesion in the pelvis Discussed use of compression gear and compression pumps since there is no DVT and no obvious source of obstruction upstream We will resume p.o. Lasix today at 40 mg Noted hyponatremia which is most likely hypervolemic in etiology (6) COPD (chronic obstructive pulmonary disease): Plan: Continue usual inhalers No acute exacerbation at this time (7) CAD (coronary artery disease): Plan: Continue simvastatin (8) Atrial fibrillation: Plan: Continue apixaban, carvedilol (9) Chronic kidney disease, stage IV (severe): Plan: Creatinine up to 2 today Follows helicopter engineer outpatient Sodium low at 125 This is most likely hypovolemic hyponatremia as the patient appears to be slightly overloaded Resume p.o. Lasix at 40 mg Consult nephrology for hyponatremia and rising creatinine Avoid nephrotoxins (10) Diabetes mellitus, type 2: Plan: Hold glargine Placed on Accu-Cheks with NovoLog SSI (11) Depression: (12) Pulmonary HTN: (13) On home oxygen therapy: (14) Pressure ulcer of right heel, stage 2: Plan: Wound care per nursing Plan Consult PT/OT sustainability project manager on board Spoke to daughter on the phone Cancel discharge due to rising creatinine and hyponatremia Admission and Anticipated Discharge Date Admission Date: November 29, 2022 Subjective Patient had the Gilliam catheter removed yesterday. No more issues with retention. Has been voiding spontaneously. She complains of constipation today. She also complains of feeling weak in general. Review of Systems Review of Systems: All systems reviewed & are unremarkable except as noted in Subjective Physical Exam Physical Exam: General: Awake, conversant Heart: S1, S2/regular rate and rhythm, no murmur rubs or gallops Lungs: Clear to auscultation bilaterally. Normal effort Abdomen: Soft/nontender/nondistended. No hepatosplenomegaly Extremities: No clubbing/cyanosis. Right leg 1+ edema Behavior: Appropriate, cooperative Results & Data Results & Data Vital Signs (Past 12 Hours) Vital Signs Temp Resp BP Pulse Ox O2 Del Method 12/02/22 08:11 36.4 C L 16 123/75 91 Room Air Laboratory Results Abnormal lab results 12/01/22 12/01/22 12/02/22 Range/Units 17:20 20:14 07:26 Sodium (136-145) mmol/L Chlor[place] (98-107) mmol/L BUN (6-23) mg/dl Creatinine 2.10 H (0.6-1.2) mg/dl Glucose (70-99(Fasting)) mg/dl POC Glucose 101 H 129 H (70-99) mg/dl 12/02/22 12/02/22 12/02/22 Range/Units 07:31 08:27 12:12 Sodium 125 L (136-145) mmol/L Chloride 90 L (98-107) mmol/L BUN 41 H (6-23) mg/dl Creatinine 2.07 H (0.6-1.2) mg/dl Glucose 138 H (70-99(Fasting)) mg/dl POC Glucose 143 H 200 H (70-99) mg/dl PG Care Time/CCT Total # of Minutes Spent Total Time Spent with Patient: Total time spent is greater than 50% in coordination of care (as documented) at patient's floor/unit and/or counseling patient: Coding Level of Care Code 82969 SUB INP/OBS CARE 2/35MIN Diagnoses Urinary retention R33.9 Acute UTI N39.0 Abdominal pain R10.9 Weakness R53.1 Congestive heart failure I50.9 COPD (chronic obstructive pulmonary disease) J44.9 CAD (coronary artery disease) I25.10 Atrial fibrillation I48.91 Chronic kidney disease, stage IV (severe) N18.4 Diabetes mellitus, type 2 E11.9 Depression F32.9 Pulmonary HTN I27.20 On home oxygen therapy Z99.81 Pressure ulcer of right heel, stage 2 L89.612
--- NOTE | 2022-12-02 16:33 | Nephrology Consultation ---
Date of Consultation December 02, 2022 Assessment & Plan (1) Hyponatremia: (2) KALEE (acute kidney injury): (3) Urinary retention: (4) Acute UTI: (5) Weakness: (6) Chronic kidney disease, stage IV (severe): Plan 87-year-old female admitted with acute abdominal pain due to urinary retention and UTI. Found to have acute hyponatremia, sodium 125 this morning with S 134 just 2 days ago. Stage 3B/4 CKD in the setting of HTN, DM, moderate degree proteinuria, cr was at baseline on admission but has been slowly worsening over last 2 days. Has UTI. Has been voiding normally since Gilliam removed last night. Unclear etiology for hyponatremia although clinically she does not seem to be volume overloaded. U osm pending --check U osm, repeat Na, check TSH, uric acid, random cortisol, urine sodium --Hold diuretics for now, monitor intake, output Thank you for allowing me to participate in your patient's care. It was a pleasure to see Amaya. History of Present Illness Reason for Consultation: Hyponatremia, KALEE, stage 3B CKD Attending Physician: Kinga Wright MD History of Present Illness Ms. Liz Stokes is an 87-year-old female with past medical history of stage 3B/4 CKD, CHF, COPD, CAD, diabetes, anemia and previous UTIs admitted with abdominal pain and urinary retention. Nephrology consult was requested to manage KALEE and acute hyponatremia. Amaya presented to the ER on 11/29/22 with c/o lower abdominal fullness and discomfort which had been going on for the several days associated with intermittent dysuria and urgency. She also felt very weak and rundown. No chest pain or shortness of breath.CT A/P showed bladder distension. Gilliam catheter was placed with improvement in symptoms. Gilliam was removed last night and since then she has been voiding normally. On admission her Na was 134 but lab this morning showed Na of 125, no labs in between. No N/V, F/C or significant pain. No SOB, has been getting Lasix 40 mg IV. Cr has been slowly worsening , 2.1 this morning. UA was positive for UTI, now on Augmentin. Stage 3B/4 CKD, b/l cr 1.6 to 1.8 with moderate degree proteinuria with h/o HTN, DM. No hydronephrosis. Never smoker. No h/o malignancy. Recent chest x-ray, CT A/P was unremarkable. No history of hypothyroidism or adrenal insufficiency. No personal history of malignancy. Hypertension, well controlled on carvedilol, has not been on any thiazide diuretics, ACEI or ARB. DM well controlled, not on SGLT2i. Has h/o CHF with diastolic dysfunction, has been following with cardiology and recently she was advised to take Lasix 40 gm only as needed. PMH also significant for Gout on allopurinol, A Fib on Eliquis. Overall she has been feeling better, denies SOB, CP, no LE edema. Denies any history of confusion, headache, dizziness, lightheadedness. Received Lasix 40 mg IV this morning. Allergies Allergy/AdvReac Type Severity Reaction Status Date / Time Sulfa (Sulfonamide Allergy Severe ANAPHYLAXIS; Verified 11/29/22 19:37 Antibiotics) TAKES AMARYL W/O REACTION cephalexin [From Keflex] Allergy Intermediate Headahce; Verified 11/29/22 19:37 Nausea; Rash nystatin Allergy Intermediate Wheezing Verified 11/29/22 19:37 amoxicillin [From Augmentin] Allergy Unknown CAN'T Verified 11/29/22 19:37 REMEMBER clavulanic acid Allergy Unknown CAN'T Verified 11/29/22 19:37 [From Augmentin] REMEMBER thyroid, pork Allergy Unknown "ALL Verified 11/29/22 19:37 THYROID AGENTS"-PT UNSURE OF REACTION Cephalosporins AdvReac Intermediate KEFLEX Verified 11/29/22 19:37 ALLERGY -NAUSEA Home Medications Medication Instructions Recorded Confirmed Type glucosamine-chondroitin 250 mg-200 2 tab PO BID 05/13/18 11/29/22 History mg tablet (Osteo Bi-Flex) levalbuterol HCl 1.25 mg/3 mL 1.25 mg (3 mL) inhalation Q4H PRN 07/28/19 11/29/22 Rx solution for nebulization shortness of breath or wheezing #90 mL ferrous sulfate 325 mg (65 mg 325 mg PO QAM 06/24/20 11/29/22 History iron) tablet travoprost 0.004 % eye drops 1 drp OPB HS 11/13/20 11/29/22 History (Travatan Z) TechLITE Lancets 30 gauge (lancets) #400 ea 12/26/20 11/06/22 Rx flash glucose scanning reader 07/31/21 11/06/22 History (FreeStyle Jelly 2 [place]) flash glucose sensor (FreeStyle 07/31/21 11/06/22 History Jelly 2 Sensor kit) albuterol sulfate 90 mcg/actuation 2 puff inhalation Q6H PRN 09/04/21 11/29/22 Rx aerosol inhaler shortness of breath or wheezing #3 Inhalers Portable Oxygen #1 ea 10/17/21 11/06/22 Rx BD Ultra-Fine Vielka Pen Needle 32 #400 ea 01/15/22 11/06/22 Rx gauge x 5/32" (pen needle, diabetic) calcium carbonate 600 mg calcium 600 mg PO QAM 02/04/22 11/29/22 History (1,500 mg) tablet (Calcium) pantoprazole 40 mg tablet,delayed 40 mg PO BID 02/04/22 11/29/22 History release tiotropium bromide 18 mcg capsule 1 cap inhalation QAM 02/04/22 11/29/22 History with inhalation device (Spiriva with HandiHaler) Novolog FlexPen U-100 Insulin 100 12 - 20 unit (0.12 - 0.2 mL) 05/22/22 11/29/22 Rx unit/mL (3 mL) subcutaneous subcut TID 90 days #60 mL (insulin aspart U-100) insulin glargine 100 unit/mL (3 8 unit (0.08 mL) subcut HS #1 box 07/20/22 11/29/22 Rx mL) subcutaneous pen (Lantus Solostar U-100 Insulin) simvastatin 40 mg tablet 40 mg PO HS #90 tabs 07/29/22 11/29/22 Rx apixaban 2.5 mg tablet (Eliquis) 2.5 mg PO BID #180 tabs 08/27/22 11/29/22 Rx Saccharomyces boulardii 250 mg 250 mg PO DAILY 09/29/22 11/29/22 History capsule (Digest Probiotic (S.boulardii)) blood sugar diagnostic (OneTouch 09/29/22 11/06/22 History Ultra Test strips) budesonide-formoterol HFA 160 2 puff inhalation BID #3 Inhalers 10/06/22 11/29/22 Rx mcg-4.5 mcg/actuation aerosol inhaler (Symbicort) carvedilol 3.125 mg tablet 3.125 mg PO BID #180 tabs 10/07/22 11/29/22 Rx allopurinol 100 mg tablet 100 mg PO QAM #90 tabs 11/06/22 11/29/22 Rx famotidine 20 mg tablet (Acid 20 mg PO HS #30 tabs 11/06/22 11/29/22 Rx Gyro Mechanic (famotidine)) furosemide 40 mg tablet 40 mg PO DAILY PRN Edema #90 tabs 11/06/22 11/29/22 Rx gabapentin 300 mg capsule 300 mg PO BID #60 caps 11/06/22 11/29/22 Rx Patient History Medical History (Updated 12/02/22 @ 23:00 by Lucille Rodríguez MD) Abdominal pain Acute exacerbation of chronic obstructive pulmonary disease Adult failure to thrive Adverse reaction to anesthetic agent Hard to wake up 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 KALEE (acute kidney injury) KALEE (acute kidney injury) Anemia Asthma Asthma-COPD overlap syndrome Atrial fibrillation CAD (coronary artery disease) NON-OBSTRUCTIVE Cardiorenal syndrome Chronic anticoagulation Chronic back pain RLE RADICULOPATHY Chronic hypoxemic respiratory failure Chronic kidney disease, stage III (moderate) Chronic kidney disease, stage IV (severe) Coarse tremors Congestive heart failure DIASTOLIC COPD (chronic obstructive pulmonary disease) Decreased oral intake Depression Diabetes mellitus, type 2 Dizziness DVT prophylaxis Dysphonia Dyspnea on exertion Encounter for pre-operative examination GERD (gastroesophageal reflux disease) CONTROLLED Glaucoma Gout Headache TEMPORAL BIOPSY DONE IN 2018 Hiatal hernia History of central retinal artery occlusion History of diverticulitis History of hypothyroidism EUTHYROID ON MORE RECENT TESTING Hx of gout Hyperlipidemia Hypertension Hyponatremia LPRD (laryngopharyngeal reflux disease) Lumbar spinal stenosis Nausea Nocturnal hypoxemia On home oxygen therapy WEARS 2L O2 "MOST OF THE TIME" Osteoarthritis Pulmonary embolism Pulmonary HTN SEVERE PULMONARY HTN (RVSP > 60MMHG) Pulmonary hypertension Pulmonary nodule Seizure 18 YEARS AGO; NO ISSUES SINCE Tremor ESSENTIAL TREMOR (HEAD) Valvular disease MODERATE TO SEVERE TR. MODERATE AV SCLEROSIS Vitamin D deficiency Surgical History History of cardiac cath 2008 NO STENTS History of cataract surgery RT/LEFT History of dacryocystorhinostomy bilateral History of dilation and curettage History of surgery CYSTOCELE REPAIR RECTOCELE REPAIR History of temporal artery biopsy 6/26/14= MAC SEDATION WITHOUT ISSUES AT [facility] History of tooth extraction History of total hip arthroplasty (~07/16/09) LEFT Family History Father Myocardial infarction Diabetes Hypertension Grandfather Stroke Mother Cancer Hearing loss Allergies Aunt Hearing loss Other Asthma Coronary heart disease Heart disease No family history of adverse response to anesthesia No family history of bleeding disorder Denies family history of Ovarian cancer Prostate cancer Breast cancer Lung cancer Colorectal cancer Social History Smoking Status: Never smoker Second Hand Exposure: No; Hx Alcohol Use: No Hx Substance Use: No Preferred Language: [place] Citizen Communication Ability: Effective Visual Impairment: No Limitations Hearing Ability: Normal Technical Staff Engineer Required: No Beliefs That Will Affect Care: None marital status: / Current Living Situation: Family Current Living Situation Comment: Currenty living with sister. current occupational status: retired How many Children do You have: 2 Feels Safe at Home: Yes Childhood Exposure to Second-Hand Smoke: No caffeine: Yes Dental Care, Regularly: Yes Physical Activity Frequency: Does not Exercise Seatbelt Use: always Sunscreen Use: Yes Assistive Devices: Oxygen - Continuous and Walker Review of Systems Review of Systems: Detail ROS was otherwise unremarkable. Physical Exam Constitutional: WD/WN, vitals as above no acute distress Eyes: + anicteric sclerae Neck: normal visual inspection Thyroid: no thyromegaly Respiratory: no respiratory distress Auscultation: lungs clear to auscultation bilaterally Cardiovascular: Rate/Rhythm: regular rate and regular rhythm Heart Sounds: normal S1 and normal S2 Extremities: no edema Gastrointestinal (Abdomen): Inspection/Auscultation: abdomen normal to inspection and normal bowel sounds Percussion/Palpation: abdomen nontender Musculoskeletal: Extremities: extremities normal to inspection Skin: no rashes Neurologic: no focal motor deficits and not confused Psychiatric: Orientation: alert and oriented x 3 Affect: euthymic affect Results & Data Vital Signs (Past 12 Hours) Vital Signs Temp Pulse Pulse Resp BP Pulse Ox O2 Del Method 12/02/22 15:56 34.6 C L 56 L 18 126/79 95 Room Air 12/02/22 15:43 96 12/02/22 15:21 36.5 C 61 18 106/67 97 Room Air 12/02/22 08:11 36.4 C L 16 123/75 91 Room Air PG Care Time/CCT Total # of Minutes Spent Total Time Spent with Patient: Total time spent is greater than 50% in coordination of care (as documented) at patient's floor/unit and/or counseling patient: Coding Level of Care Code 23755 INT INP/OBS CARE 75MIN Diagnoses Hyponatremia E87.1 KALEE (acute kidney injury) N17.9 Urinary retention R33.9 Acute UTI N39.0 Weakness R53.1 Chronic kidney disease, stage IV (severe) N18.4
[2022-12-02] MEDS: FUROSEMIDE 40 MG TAB PO ONE ×2 (18:19→18:27)
[2022-12-02] MEDS: FAMOTIDINE 20 MG TAB PO SCH (20:04)
[2022-12-02] MEDS: TRAVOPROST Z 0.004% OPH SOLN 2.5 ML BTL OPB SCH (20:04)
[2022-12-02] MEDS: SIMVASTATIN 40 MG TAB PO SCH (20:05)
[2022-12-02] MEDS: LANTUS PER UNIT CHARGE SQ SCH (20:06)
[2022-12-02] MEDS ORDERED: TOLVAPTAN 15 MG TABLET PO ONE (22:34)
[2022-12-02] MEDS ORDERED: SODIUM CHLORIDE 1 GM TABLET PO STA (22:35)
[2022-12-03 07:29] LABS: Albumin Level 3.5 gm/dl (3.4-5.0); Calcium 8.5 mg/dl (8.6-10.3); Potassium 4.6 mmol/L (3.5-5.1)
[2022-12-03 07:35] LABS: BUN Creatinine Ratio 20.3 (10-20); Est GFR (African American) 24.9 ml/min; Est GFR (Non-African American) 21.5 ml/min
[2022-12-03] MEDS: UMECLIDINIUM BROMIDE 62.5MCG/BLISTER 7 PUFFS/INHALER INH SCH (08:35)
[2022-12-03] MEDS: PANTOprazole 40 MG TAB PO SCH ×2 (08:36→20:52)
[2022-12-03] MEDS: FERROUS SULFATE 325 MG TAB PO SCH (08:36)
[2022-12-03] MEDS: AMOXICILLIN/CLAVULANATE 250 MG TAB PO SCH ×2 (08:36→17:48)
[2022-12-03] MEDS: SACCHAROMYCES BOULARDII 250 MG CAP PO SCH (08:36)
[2022-12-03] MEDS: allopurinoL 100 MG TAB PO SCH (08:36)
[2022-12-03] MEDS: FLUTICASONE/VILANTEROL 200/25MCG 14 PUFFS/INHALER INH SCH (08:36)
[2022-12-03] MEDS: carvediloL 3.125 MG TAB PO SCH ×2 (08:36→20:51)
[2022-12-03] MEDS: POLYETHYLENE (MIRALAX) 17 GM PACK PO SCH (08:36)
[2022-12-03] MEDS: GABAPENTIN 300 MG CAP PO SCH ×2 (08:37→20:51)
[2022-12-03] MEDS: APIXABAN 2.5 MG TAB PO SCH ×2 (08:37→20:51)
[2022-12-03] MEDS: INSULIN ASPART PER UNIT CHARGE SC SCH ×4 (09:38→20:52)
[2022-12-03] MEDS ORDERED: TOLVAPTAN 15 MG TABLET PO STA ×2 (13:32→23:30)
--- NOTE | 2022-12-03 13:41 | Nephrology Progress Note ---
Date of Service December 03, 2022 Assessment & Plan (1) Hyponatremia: (2) KALEE (acute kidney injury): (3) Urinary retention: (4) Acute UTI: (5) Weakness: (6) Chronic kidney disease, stage IV (severe): Plan 87-year-old female admitted with acute abdominal pain due to urinary retention and UTI. Found to have acute hyponatremia, sodium 125 this morning with S 134 just 2 days ago. Stage 3B/4 CKD in the setting of HTN, DM, moderate degree proteinuria, cr was at baseline on admission but has been slowly worsening over last 2 days. Has UTI. Has been voiding normally since Gilliam removed last night. Na remained low around 124/125. Cr relatively stable, asymptomatic. --Tolvapatn 15 mg x 1 dose. okay to keep off of Lasix for now as volume status seems stable, repeat serum sodium in few hours. Admission and Anticipated Discharge Date Admission Date: November 29, 2022 Domitila Conde was seen and evaluated this am. Denies any specific symptoms or concerns, no SOB, confusion. Na dropped on lab last night to 124, U osm was not done until this am. Received 1 dose of Tolvaptan 15 mg last night but Na still 125, Uosm 225 may be some effect from Tolvaptan. Review of Systems Review of Systems: Detail ROS was otherwise unremarkable. Physical Exam Constitutional: WD/WN, vitals as above no acute distress Eyes: + anicteric sclerae Neck: normal visual inspection Thyroid: no thyromegaly Respiratory: no respiratory distress Auscultation: + rales (at b/l bases) Skin: no rashes Neurologic: no focal motor deficits and not confused Psychiatric: Orientation: alert and oriented x 3 Affect: euthymic affect Results & Data Vital Signs (Past 12 Hours) Vital Signs Temp Pulse Resp BP Pulse Ox O2 Del Method O2 Flow Rate 12/03/22 08:00 Room Air 12/03/22 08:38 69 97 Room Air 12/03/22 07:22 37.2 C 56 L 14 129/73 98 Nasal Cannula 1 PG Care Time/CCT Total # of Minutes Spent Total Time Spent with Patient: Total time spent is greater than 50% in coordination of care (as documented) at patient's floor/unit and/or counseling patient: Coding Level of Care Code 00161 SUB INP/OBS CARE 2/35MIN Diagnoses Hyponatremia E87.1 KALEE (acute kidney injury) N17.9 Urinary retention R33.9 Acute UTI N39.0 Weakness R53.1 Chronic kidney disease, stage IV (severe) N18.4
--- NOTE | 2022-12-03 17:19 | Hospitalist Progress Note ---
Date of Service December 03, 2022 Assessment & Plan (1) Urinary retention: Plan: Urinary retention/urinary tract infection- Marked bladder distention noted on CT Urine culture growing alpha strep, not Enterococcus Now on p.o. Augmentin Urinary retention resolved. Gilliam catheter removed. Patient voiding spontaneously. (2) Acute UTI: Plan: See above (3) Abdominal pain: Plan: Secondary to urinary retention and UTI Resolved (4) Weakness: Plan: Consulted PT/OT. Case management on board Per PT/OT patient can go home with home health services. (5) Congestive heart failure: Plan: Right lower extremity edema with stage I right heel ulcer- Right lower extremity venous duplex was negative for DVT. Question whether there may be some compressive lesion in the pelvis Discussed use of compression gear and compression pumps since there is no DVT and no obvious source of obstruction upstream Patient feels like she is reaccumulating fluid in her belly and also in her ankles, right more than left. She is not overtly volume overloaded at this time. Not short of breath. Not hypoxic. Lasix may be resumed as she has been off of Lasix for the last 4 days. Nephrology involved started tolvaptan. As she is not acutely overloaded, we have time to try tolvaptan to increase sodium level and then start Lasix. (6) COPD (chronic obstructive pulmonary disease): Plan: Continue usual inhalers No acute exacerbation at this time (7) CAD (coronary artery disease): Plan: Continue simvastatin (8) Atrial fibrillation: Plan: Continue apixaban, carvedilol (9) Chronic kidney disease, stage IV (severe): Plan: Creatinine up to 2 today Follows turn supervisor outpatient Sodium low at 125 This is most likely hypovolemic hyponatremia as the patient appears to be slightly overloaded Equipment Validation Engineer on board for hyponatremia and slightly worsened creatinine Treating the patient with tolvaptan to bring up sodium May consider resuming Lasix as she is getting fluid overloaded, although not overtly so at this time. (10) Diabetes mellitus, type 2: Plan: Hold glargine Placed on Accu-Cheks with NovoLog SSI (11) Depression: (12) Pulmonary HTN: (13) On home oxygen therapy: (14) Pressure ulcer of right heel, stage 2: Plan: Wound care per nursing Ulcer is slightly painful Ordered right foot x-ray to evaluate for osteomyelitis No leukocytosis Check CBC in a.m. No fever Plan Consult PT/OT account support manager on board Spoke to daughter on the phone 12/02 Admission and Anticipated Discharge Date Admission Date: November 29, 2022 Subjective Patient feels well. Denies chest pain or shortness of breath. She says that she takes Lasix on an as-needed basis and lately has been using it every other day. She uses it whenever she feels like she is building up fluids. Currently she tells me that she thinks her fluid is accumulating mostly in her belly and also her ankles, right more than left. Review of Systems Review of Systems: All systems reviewed & are unremarkable except as noted in Subjective Physical Exam Physical Exam: General: Awake, conversant Heart: S1, S2/regular rate and rhythm, no murmur rubs or gallops Lungs: Clear to auscultation bilaterally. Normal effort Abdomen: Soft/nontender/nondistended. No hepatosplenomegaly Extremities: No clubbing/cyanosis. Right leg 1+ edema Behavior: Appropriate, cooperative Results & Data Results & Data Vital Signs (Past 12 Hours) Vital Signs Temp Pulse Resp BP BP Pulse Ox O2 Del Method 12/03/22 15:29 36.3 C L 55 L 14 120/76 95 Room Air 12/03/22 08:00 Room Air 12/03/22 08:38 69 97 Room Air 12/03/22 07:22 37.2 C 56 L 14 129/73 98 Nasal Cannula O2 Flow Rate 12/03/22 15:29 12/03/22 08:00 12/03/22 08:38 12/03/22 07:22 1 PG Care Time/CCT Total # of Minutes Spent Total Time Spent with Patient: Total time spent is greater than 50% in coordination of care (as documented) at patient's floor/unit and/or counseling patient: Coding Level of Care Code 88188 SUB INP/OBS CARE 2/35MIN Diagnoses Urinary retention R33.9 Acute UTI N39.0 Abdominal pain R10.9 Weakness R53.1 Congestive heart failure I50.9 COPD (chronic obstructive pulmonary disease) J44.9 CAD (coronary artery disease) I25.10 Atrial fibrillation I48.91 Chronic kidney disease, stage IV (severe) N18.4 Diabetes mellitus, type 2 E11.9 Depression F32.9 Pulmonary HTN I27.20 On home oxygen therapy Z99.81 Pressure ulcer of right heel, stage 2 L89.612
[2022-12-03] MEDS: FAMOTIDINE 20 MG TAB PO SCH (20:51)
[2022-12-03] MEDS: LANTUS PER UNIT CHARGE SQ SCH (20:52)
[2022-12-03] MEDS: TRAVOPROST Z 0.004% OPH SOLN 2.5 ML BTL OPB SCH (20:52)
[2022-12-03] MEDS: SIMVASTATIN 40 MG TAB PO SCH (20:52)
--- NOTE | 2022-12-04 07:35 | XRay Report ---
XR foot RT 2V CLINICAL HISTORY: Right painful heel ulcer COMPARISON STUDY: None. FINDINGS: No fracture or dislocation within the right foot. There is diffuse soft tissue swelling. Va scular calcifications are noted. Posterior and plantar calcaneal spurs are noted. There is a posterio r heel skin ulceration noted. No underlying cortical destruction to suggest an osteomyelitis. IMPRESSION: Skin ulceration at the posterior heel. No evidence for osteomyelitis. ACT 112: Negative or not required by law. Electronically signed by: Efrain Dugan M.D. 12/04/2022 7:33 AM
[2022-12-04 07:36] LABS: Basophils # (auto) 0.03 K/uL (0-0.2); Basophils % (auto) 0.5 %; Eosinophils # (auto) 0.27 K/uL (0-0.50); Eosinophils % (auto) 4.3 %; Hematocrit (blood only) 35.8 % (37.0-47.0); Hemoglobin 12.4 g/dl (12.0-16.0); Immature Granulocytes # (auto) 0.02 K/uL (0.01-0.20); Immature Granulocytes % (auto) 0.3 %; Lymphocytes # (auto) 0.96 K/uL (1.2-3.4); Lymphocytes % (auto) 15.2 %; Mean Corpuscular Hemoglobin 31.6 pg (25.0-34.0); Mean Corpuscular Hgb Conc 34.6 g/dL (32.0-36.0); Mean Corpuscular Volume 91.3 fL (80.0-100.0); Mean Platelet Volume 12.2 fL (9.4-12.4); Monocytes # (auto) 0.81 K/uL (0.11-0.59); Monocytes % (auto) 12.8 %; Neutrophils # (auto) 4.23 K/uL (1.40-6.50); Neutrophils % (auto) 66.9 %; Platelet Count 122 K/uL (130-400); RDW Coefficient of Variation 13.2 % (11.5-14.5); RDW Standard Deviation 43.5 fL (36.4-46.3); Red Blood Count 3.92 M/uL (4.20-5.40); White Blood Count 6.32 K/ul (4.8-10.8)
[2022-12-04 07:44] LABS: Albumin Level 3.5 gm/dl (3.4-5.0); BUN Creatinine Ratio 21.2 (10-20); Calcium 8.9 mg/dl (8.6-10.3); Est GFR (Non-African American) 23.3 ml/min; Phosphorus 3.8 mg/dl (2.5-4.9); Potassium 4.6 mmol/L (3.5-5.1)
[2022-12-04] MEDS: allopurinoL 100 MG TAB PO SCH (08:16)
[2022-12-04] MEDS: PANTOprazole 40 MG TAB PO SCH ×2 (08:16→20:48)
[2022-12-04] MEDS: SACCHAROMYCES BOULARDII 250 MG CAP PO SCH (08:16)
[2022-12-04] MEDS: APIXABAN 2.5 MG TAB PO SCH ×2 (08:17→20:49)
[2022-12-04] MEDS: POLYETHYLENE (MIRALAX) 17 GM PACK PO SCH (08:17)
[2022-12-04] MEDS: AMOXICILLIN/CLAVULANATE 250 MG TAB PO SCH ×2 (08:17→18:03)
[2022-12-04] MEDS: UMECLIDINIUM BROMIDE 62.5MCG/BLISTER 7 PUFFS/INHALER INH SCH (08:17)
[2022-12-04] MEDS: FERROUS SULFATE 325 MG TAB PO SCH (08:17)
[2022-12-04] MEDS: carvediloL 3.125 MG TAB PO SCH ×2 (08:17→20:49)
[2022-12-04] MEDS: GABAPENTIN 300 MG CAP PO SCH ×2 (08:17→20:48)
[2022-12-04] MEDS: FLUTICASONE/VILANTEROL 200/25MCG 14 PUFFS/INHALER INH SCH (08:18)
[2022-12-04] MEDS: INSULIN ASPART PER UNIT CHARGE SC SCH ×4 (09:13→20:50)
--- NOTE | 2022-12-04 11:58 | Nephrology Progress Note ---
Date of Service December 04, 2022 Assessment & Plan (1) Hyponatremia: (2) KALEE (acute kidney injury): (3) Urinary retention: (4) Acute UTI: (5) Weakness: (6) Chronic kidney disease, stage IV (severe): Plan 87-year-old female admitted with acute abdominal pain due to urinary retention and UTI. Found to have acute hyponatremia, sodium 125 this morning with S 134 just 2 days ago. Stage 3B/4 CKD in the setting of HTN, DM, moderate degree proteinuria, cr was at baseline on admission but has been slowly worsening over last 2 days. Has UTI. Has been voiding normally since Gilliam removed last night. Na improved to 130 this morning, renal function improved and creatinine close t o baseline. Blood pressure well controlled clinically no sign of volume overload overall she feels better. -- Suggest to continue to hold diuretics at this time, she can resume at home her usual regimen based on her weight. continue to monitor serum sodium for further improvement. Admission and Anticipated Discharge Date Admission Date: November 29, 2022 Domitila Conde was seen and evaluated this am. Denies any specific symptoms or concerns, no SOB, confusion, overall she feels slightly better. Sodium improved to 130 this morning after a dose of tolvaptan last night. blood pressure well controlled. creatinine close to baseline. Review of Systems Review of Systems: Detail ROS was otherwise unremarkable. Physical Exam Constitutional: WD/WN, vitals as above no acute distress Eyes: + anicteric sclerae Neck: normal visual inspection Thyroid: no thyromegaly Respiratory: no respiratory distress Auscultation: + rales (at left base) Skin: no rashes Neurologic: no focal motor deficits and not confused Psychiatric: Orientation: alert and oriented x 3 Affect: euthymic affect Results & Data Vital Signs (Past 12 Hours) Vital Signs Temp Pulse Resp BP Pulse Ox O2 Del Method O2 Flow Rate 12/04/22 07:15 36.6 C 56 L 16 128/72 98 Nasal Cannula 2 PG Care Time/CCT Total # of Minutes Spent Total Time Spent with Patient: Total time spent is greater than 50% in coordination of care (as documented) at patient's floor/unit and/or counseling patient: Coding Level of Care Code 25052 SUB INP/OBS CARE 3/50MIN Diagnoses Hyponatremia E87.1 KALEE (acute kidney injury) N17.9 Urinary retention R33.9 Acute UTI N39.0 Weakness R53.1 Chronic kidney disease, stage IV (severe) N18.4
--- NOTE | 2022-12-04 15:14 | Hospitalist Progress Note ---
Date of Service December 04, 2022 Assessment & Plan (1) Urinary retention: Plan: Urinary retention/urinary tract infection- Marked bladder distention noted on CT Urine culture growing alpha strep, not Enterococcus Now on p.o. Augmentin Urinary retention resolved. Gilliam catheter removed. Patient voiding spontaneously. (2) Acute UTI: Plan: See above (3) Abdominal pain: Plan: Secondary to urinary retention and UTI Resolved (4) Weakness: Plan: Consulted PT/OT. Case management on board Per PT/OT patient can go home with home health services. (5) Congestive heart failure: Plan: Right lower extremity edema with stage I right heel ulcer- Right lower extremity venous duplex was negative for DVT. Question whether there may be some compressive lesion in the pelvis Discussed use of compression gear and compression pumps since there is no DVT and no obvious source of obstruction upstream Patient feels like she is reaccumulating fluid in her belly and also in her ankles, right more than left. She is not overtly volume overloaded at this time. Not short of breath. Not hypoxic. Nephrology involved started tolvaptan. As she is not acutely overloaded, we have time to try tolvaptan to increase sodium level and then start Lasix at a later time. (6) COPD (chronic obstructive pulmonary disease): Plan: Continue usual inhalers No acute exacerbation at this time (7) CAD (coronary artery disease): Plan: Continue simvastatin (8) Atrial fibrillation: Plan: Continue apixaban, carvedilol (9) Chronic kidney disease, stage IV (severe): Plan: Creatinine down to 1.9 today Follows mental tester outpatient Sodium improved to 130 with tolvaptan Manager Dental on board for hyponatremia and slightly worsened creatinine Treating the patient with tolvaptan to bring up sodium May consider resuming Lasix at a later time when sodium improves further (10) Diabetes mellitus, type 2: Plan: Hold glargine Placed on Accu-Cheks with NovoLog SSI (11) Depression: (12) Pulmonary HTN: (13) On home oxygen therapy: (14) Pressure ulcer of right heel, stage 2: Plan: Wound care per nursing Ulcer is slightly painful Right foot x-ray was negative for osteomyelitis No leukocytosis No fever Plan Consult PT/OT field marketing manager on board Spoke to daughter on the phone 12/02 Admission and Anticipated Discharge Date Admission Date: November 29, 2022 Subjective Patient feels well overall. Denies chest pain or shortness of breath. Her leg swelling is not as bad today. Although she feels bloated in her belly slightly. Review of Systems Review of Systems: All systems reviewed & are unremarkable except as noted in Subjective Physical Exam Physical Exam: General: Awake, conversant Heart: S1, S2/regular rate and rhythm, no murmur rubs or gallops Lungs: Clear to auscultation bilaterally. Normal effort Abdomen: Soft/nontender/nondistended. No hepatosplenomegaly Extremities: No clubbing/cyanosis. Right leg 1+ edema Behavior: Appropriate, cooperative Results & Data Results & Data Vital Signs (Past 12 Hours) Vital Signs Temp Pulse Resp BP Pulse Ox O2 Del Method O2 Flow Rate 12/04/22 15:09 36.5 C 56 L 16 127/78 94 Room Air 12/04/22 07:15 36.6 C 56 L 16 128/72 98 Nasal Cannula 2 Laboratory Results Abnormal lab results 12/03/22 12/03/22 12/04/22 Range/Units 18:27 20:46 05:34 RBC (4.20-5.40) M/uL Hct (37.0-47.0) % Plt Count (130-400) K/uL Lymph # (Auto) (1.2-3.4) K/uL Evans # (Auto) (0.11-0.59) K/uL Sodium 125 L (136-145) mmol/L Chloride (98-107) mmol/L BUN (6-23) mg/dl Creatinine (0.6-1.2) mg/dl BUN/Creatinine Ratio (10-20) Glucose (70-99(Fasting)) mg/dl POC Glucose 167 H (70-99) mg/dl Urine Osmolality 147 L (500-800) mOsm/kg 12/04/22 12/04/22 12/04/22 Range/Units 06:46 06:46 08:21 RBC 3.92 L (4.20-5.40) M/uL Hct 35.8 L (37.0-47.0) % Plt Count 122 L (130-400) K/uL Lymph # (Auto) 0.96 L (1.2-3.4) K/uL Evans # (Auto) 0.81 H (0.11-0.59) K/uL Sodium 130 L (136-145) mmol/L Chloride 95 L (98-107) mmol/L BUN 40 H (6-23) mg/dl Creatinine 1.89 H (0.6-1.2) mg/dl BUN/Creatinine Ratio 21.2 H (10-20) Glucose 127 H (70-99(Fasting)) mg/dl POC Glucose 147 H (70-99) mg/dl Urine Osmolality (500-800) mOsm/kg 12/04/22 Range/Units 12:08 RBC (4.20-5.40) M/uL Hct (37.0-47.0) % Plt Count (130-400) K/uL Lymph # (Auto) (1.2-3.4) K/uL Evans # (Auto) (0.11-0.59) K/uL Sodium (136-145) mmol/L Chloride (98-107) mmol/L BUN (6-23) mg/dl Creatinine (0.6-1.2) mg/dl BUN/Creatinine Ratio (10-20) Glucose (70-99(Fasting)) mg/dl POC Glucose 212 H (70-99) mg/dl Urine Osmolality (500-800) mOsm/kg Diagnostic Findings Foot X-Ray 12/03/22 17:09 XR foot RT 2V CLINICAL HISTORY: Right painful heel ulcer COMPARISON STUDY: None. FINDINGS: No fracture or dislocation within the right foot. There is diffuse soft tissue swelling. Vascular calcifications are noted. Posterior and plantar calcaneal spurs are noted. There is a posterior heel skin ulceration noted. No underlying cortical destruction to suggest an osteomyelitis. IMPRESSION: Skin ulceration at the posterior heel. No evidence for osteomyelitis. ACT 112: Negative or not required by law. Electronically signed by: Efrain Dugan M.D. 12/04/2022 7:33 AM PG Care Time/CCT Total # of Minutes Spent Total Time Spent with Patient: Total time spent is greater than 50% in coordination of care (as documented) at patient's floor/unit and/or counseling patient: Coding Level of Care Code 20708 SUB INP/OBS CARE 2/35MIN Diagnoses Urinary retention R33.9 Acute UTI N39.0 Abdominal pain R10.9 Weakness R53.1 Congestive heart failure I50.9 COPD (chronic obstructive pulmonary disease) J44.9 CAD (coronary artery disease) I25.10 Atrial fibrillation I48.91 Chronic kidney disease, stage IV (severe) N18.4 Diabetes mellitus, type 2 E11.9 Depression F32.9 Pulmonary HTN I27.20 On home oxygen therapy Z99.81 Pressure ulcer of right heel, stage 2 L89.612
[2022-12-04] MEDS: SIMVASTATIN 40 MG TAB PO SCH (20:48)
[2022-12-04] MEDS: FAMOTIDINE 20 MG TAB PO SCH (20:49)
[2022-12-04] MEDS: TRAVOPROST Z 0.004% OPH SOLN 2.5 ML BTL OPB SCH (20:49)
[2022-12-04] MEDS: LANTUS PER UNIT CHARGE SQ SCH (20:50)
[2022-12-04] MEDS: ACETAMINOPHEN 325 MG TAB PO PRN (23:22)
[2022-12-05 07:15] LABS: Albumin Level 3.6 gm/dl (3.4-5.0); BUN Creatinine Ratio 22.8 (10-20); Calcium 9.1 mg/dl (8.6-10.3); Est GFR (Non-African American) 23.3 ml/min; Phosphorus 3.7 mg/dl (2.5-4.9); Potassium 4.5 mmol/L (3.5-5.1)
[2022-12-05] MEDS: GABAPENTIN 300 MG CAP PO SCH ×2 (08:48→20:32)
[2022-12-05] MEDS: carvediloL 3.125 MG TAB PO SCH ×2 (08:48→20:31)
[2022-12-05] MEDS: APIXABAN 2.5 MG TAB PO SCH ×2 (08:48→20:32)
[2022-12-05] MEDS: allopurinoL 100 MG TAB PO SCH (08:49)
[2022-12-05] MEDS: SACCHAROMYCES BOULARDII 250 MG CAP PO SCH (08:49)
[2022-12-05] MEDS: FLUTICASONE/VILANTEROL 200/25MCG 14 PUFFS/INHALER INH SCH (08:49)
[2022-12-05] MEDS: UMECLIDINIUM BROMIDE 62.5MCG/BLISTER 7 PUFFS/INHALER INH SCH (08:49)
[2022-12-05] MEDS: AMOXICILLIN/CLAVULANATE 250 MG TAB PO SCH ×2 (08:49→17:58)
[2022-12-05] MEDS: PANTOprazole 40 MG TAB PO SCH ×2 (08:50→20:32)
[2022-12-05] MEDS: POLYETHYLENE (MIRALAX) 17 GM PACK PO SCH (08:50)
[2022-12-05] MEDS: INSULIN ASPART PER UNIT CHARGE SC SCH ×4 (08:50→20:32)
[2022-12-05] MEDS: FERROUS SULFATE 325 MG TAB PO SCH (08:50)
[2022-12-05] MEDS ORDERED: FUROSEMIDE 40 MG TAB PO ONE (09:43)
--- NOTE | 2022-12-05 13:22 | Nephrology Progress Note ---
Date of Service December 05, 2022 Assessment & Plan (1) Hyponatremia: Plan: Chronic. Asymptomatic. Encourage oral solute intake. Diuretics held. Volume status acceptable. No changes at this time. Close outpatient follow up with Dr. Gleason post discharge. (2) KLAEE (acute kidney injury): Plan: Appears to be volume mediated and prerenal in setting of diuretics. Creatinine approaching baseline. Electrolytes normal. Kidney function stable. Close outpatient follow up with Dr. Gleason. (3) Urinary retention: Plan: Voiding without c/o. Gilliam removed. Suspected cystitis. (4) Acute UTI: Plan: Remains on Augmentin. No urinary symptoms at this time. (5) Chronic kidney disease, stage IV (severe): Plan: Baseline creatinine ~1.9 mg/dL. Followed in the outpatient nephrology clinic. Medications are appropriately dosed for kidney dysfunction. Admission and Anticipated Discharge Date Admission Date: November 29, 2022 Subjective No acute events overnight. No complaints this AM. Appetite fair. No fluid retention or edema. Denies dyspnea. No urinary complaints. No diarrhea. Review of Systems Review of Systems: All systems reviewed & are unremarkable except as noted in HPI & below Physical Exam Constitutional: well developed, + thin and + frail appearing; no acute distress Eyes: + anicteric sclerae; pupils not irregular ENMT: Mouth: no oral mucosal abnormality and oral mucous membranes not dry Neck: normal visual inspection and trachea midline Respiratory: normal respiratory effort Auscultation: lungs clear to auscultation bilaterally Cardiovascular: Rate/Rhythm: + bradycardic Heart Sounds: normal S1 and normal S2 Extremities: + pedal edema (R>L) Musculoskeletal: Extremities: no cyanosis and no clubbing Skin: + turgor decreased; no jaundice Neurologic: Motor/Sensory: no tremor and no asterixis Psychiatric: Orientation: alert and oriented x 3 Results & Data Vital Signs (Past 12 Hours) Vital Signs Temp Pulse Resp BP Pulse Ox O2 Del Method 12/05/22 07:26 36.4 C L 59 L 16 145/79 H 98 Room Air Laboratory Results Laboratory Results - last 24 hr 12/04/22 12/04/22 12/05/22 16:55 20:37 06:24 Sodium 134 L Potassium 4.5 Chloride 99 Carbon Dioxide 26 Anion Gap 9 BUN 43 H Creatinine 1.89 H Est Cr Clr Drug Dosing 16.0 Est GFR ( Amer) 27.0 Est GFR (Non-Af Amer) 23.3 BUN/Creatinine Ratio 22.8 H Glucose 95 POC Glucose 139 H 112 H Calcium 9.1 Phosphorus 3.7 Albumin 3.6 12/05/22 12/05/22 08:18 12:06 Sodium Potassium Chloride Carbon Dioxide Anion Gap BUN Creatinine Est Cr Clr Drug Dosing Est GFR ( Amer) Est GFR (Non-Af Amer) BUN/Creatinine Ratio Glucose POC Glucose 94 203 H Calcium Phosphorus Albumin PG Care Time/CCT Total # of Minutes Spent Total Time Spent with Patient: Total time spent is greater than 50% in coordination of care (as documented) at patient's floor/unit and/or counseling patient: Coding Level of Care Code 80310 SUB INP/OBS CARE 3/50MIN Diagnoses Hyponatremia E87.1 KALEE (acute kidney injury) N17.9 Urinary retention R33.9 Acute UTI N39.0 Chronic kidney disease, stage IV (severe) N18.4
[2022-12-05] MEDS: ACETAMINOPHEN 325 MG TAB PO PRN ×2 (13:47→23:30)
--- NOTE | 2022-12-05 15:48 | Hospitalist Progress Note ---
Date of Service December 05, 2022 Assessment & Plan (1) Urinary retention: Plan: Urinary retention/urinary tract infection- Marked bladder distention noted on CT Urine culture growing alpha strep, not Enterococcus Now on p.o. Augmentin Urinary retention resolved. Gilliam catheter removed. Patient voiding spontaneously. (2) Acute UTI: Plan: See above (3) Abdominal pain: Plan: Secondary to urinary retention and UTI Resolved (4) Weakness: Plan: Consulted PT/OT. Case management on board Per PT/OT patient can go home with home health services. (5) Congestive heart failure: Plan: Right lower extremity edema with stage I right heel ulcer- Right lower extremity venous duplex was negative for DVT. Question whether there may be some compressive lesion in the pelvis Discussed use of compression gear and compression pumps since there is no DVT and no obvious source of obstruction upstream Patient feels like she is reaccumulating fluid in her belly and also in her ankles, right more than left. She is not overtly volume overloaded at this time. Not short of breath. Not hypoxic. Nephrology involved started tolvaptan. Sodium improved. Creatinine stable at 1.8. Give her home dose of Lasix 40 mg today Monitor a.m. 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 Sodium improved to 134 with tolvaptan Studio Hand on board for hyponatremia and slightly worsened creatinine Treated the patient with tolvaptan to bring up sodium Resumed Lasix today (10) Diabetes mellitus, type 2: Plan: Hold glargine Placed on Accu-Cheks with NovoLog SSI (11) Depression: (12) Pulmonary HTN: (13) On home oxygen therapy: (14) Pressure ulcer of right heel, stage 2: Plan: Wound care per nursing Ulcer is slightly painful Right foot x-ray was negative for osteomyelitis No leukocytosis No fever Plan Consult PT/OT truck manager on board Spoke to daughter on the phone 12/02 Admission and Anticipated Discharge Date Admission Date: November 29, 2022 Subjective Patient feels well. Denies chest pain shortness of breath. Complains of some pain in the heel ulcer area. Review of Systems Review of Systems: All systems reviewed & are unremarkable except as noted in Subjective Physical Exam Physical Exam: General: Awake, conversant Heart: S1, S2/regular rate and rhythm, no murmur rubs or gallops Lungs: Clear to auscultation bilaterally. Normal effort Abdomen: Soft/nontender/nondistended. No hepatosplenomegaly Extremities: No clubbing/cyanosis. Right leg 1+ edema. Right heel scarred ulcer, slightly tender. Does not appear overtly inflamed or purulent. Behavior: Appropriate, cooperative Results & Data Results & Data Vital Signs (Past 12 Hours) Vital Signs Temp Pulse Resp BP Pulse Ox O2 Del Method 12/05/22 15:06 36.4 C L 57 L 16 130/79 95 Room Air 12/05/22 07:26 36.4 C L 59 L 16 145/79 H 98 Room Air Laboratory Results Abnormal lab results 12/04/22 12/04/22 12/05/22 Range/Units 16:55 20:37 06:24 Sodium 134 L (136-145) mmol/L BUN 43 H (6-23) mg/dl Creatinine 1.89 H (0.6-1.2) mg/dl BUN/Creatinine Ratio 22.8 H (10-20) POC Glucose 139 H 112 H (70-99) mg/dl 12/05/22 Range/Units 12:06 Sodium (136-145) mmol/L BUN (6-23) mg/dl Creatinine (0.6-1.2) mg/dl BUN/Creatinine Ratio (10-20) POC Glucose 203 H (70-99) mg/dl PG Care Time/CCT Total # of Minutes Spent Total Time Spent with Patient: Total time spent is greater than 50% in coordination of care (as documented) at patient's floor/unit and/or counseling patient: Coding Level of Care Code 04836 SUB INP/OBS CARE 2/35MIN Diagnoses Urinary retention R33.9 Acute UTI N39.0 Abdominal pain R10.9 Weakness R53.1 Congestive heart failure I50.9 COPD (chronic obstructive pulmonary disease) J44.9 CAD (coronary artery disease) I25.10 Atrial fibrillation I48.91 Chronic kidney disease, stage IV (severe) N18.4 Diabetes mellitus, type 2 E11.9 Depression F32.9 Pulmonary HTN I27.20 On home oxygen therapy Z99.81 Pressure ulcer of right heel, stage 2 L89.612
[2022-12-05] MEDS: TRAVOPROST Z 0.004% OPH SOLN 2.5 ML BTL OPB SCH (20:31)
[2022-12-05] MEDS: SIMVASTATIN 40 MG TAB PO SCH (20:32)
[2022-12-05] MEDS: FAMOTIDINE 20 MG TAB PO SCH (20:32)
[2022-12-05] MEDS: LANTUS PER UNIT CHARGE SQ SCH (20:32)
[2022-12-06 07:54] LABS: BUN Creatinine Ratio 23.7 (10-20); Calcium 8.9 mg/dl (8.6-10.3); Creatinine Clr Calc Pharmacy 15.6 ml/min; Est GFR (African American) 26.1 ml/min; Est GFR (Non-African American) 22.6 ml/min; Potassium 4.8 mmol/L (3.5-5.1)
[2022-12-06] MEDS: GABAPENTIN 300 MG CAP PO SCH (07:54)
[2022-12-06] MEDS: SACCHAROMYCES BOULARDII 250 MG CAP PO SCH (07:54)
[2022-12-06] MEDS: APIXABAN 2.5 MG TAB PO SCH (07:54)
[2022-12-06] MEDS: FERROUS SULFATE 325 MG TAB PO SCH (07:54)
[2022-12-06] MEDS: carvediloL 3.125 MG TAB PO SCH (07:54)
[2022-12-06] MEDS: allopurinoL 100 MG TAB PO SCH (07:54)
[2022-12-06] MEDS: PANTOprazole 40 MG TAB PO SCH (07:54)
[2022-12-06] MEDS: POLYETHYLENE (MIRALAX) 17 GM PACK PO SCH (07:55)
[2022-12-06] MEDS: UMECLIDINIUM BROMIDE 62.5MCG/BLISTER 7 PUFFS/INHALER INH SCH (07:55)
[2022-12-06] MEDS: FLUTICASONE/VILANTEROL 200/25MCG 14 PUFFS/INHALER INH SCH (07:55)
[2022-12-06] MEDS: INSULIN ASPART PER UNIT CHARGE SC SCH ×2 (09:12→13:04)
--- NOTE | 2022-12-06 12:12 | Discharge Summary ---
Date of Service December 06, 2022 Admission HPI Per Admitting Provider The patient is a 87-year-old female with a past medical history including CHF, COPD, CAD, atrial fibrillation, CKD stage IV, diabetes mellitus, right heel ulcer, hyponatremia, anemia, and vitamin D deficiency, urinary tract infection, COVID-19, gastritis, depression, pulmonary hypertension, chronic respiratory failure with hypoxia requiring oxygen at nighttime. The patient presents to the emergency department with symptoms as noted above. She is also had chronic lower extremity edema on the right floor which she reports she has been on Lasix intermittently, and received local wound care Admission Exam Per Admitting Provider The patient is awake, alert and oriented 3, well developed and well nourished, normocephalic and atraumatic, lying in bed and in no acute distress. HEENT--PERRL, EOMI, mucous membranes and oropharynx dry. Neck--supple. No JVD. No bruits. Thyroid normal, trachea midline, no adenopathy. Heart--normal S1 and S2. No murmurs, rubs or gallops. Lungs--clear bilaterally, no respiratory distress, no accessory muscle use. Abdomen--normal bowel sounds and soft. Nontender. Nondistended, no hernias or masses, no organomegaly. Extremities--no cyanosis or clubbing. 3+ pretibial and pedal pitting edema on the right, normal on the left. There are good distal pulses b/l. Dermatologic--multiple skin abrasions and bruises on the bilateral lower extremities Neurologic--cranial nerves II through XII grossly intact. Rheumatologic--normal range of motion. Psychiatric--normal affect. Principal Diagnosis Acute UTI leading to urinary retention Hyponatremia Acute kidney injury Discharge Exam General: Awake, conversant Heart: S1, S2/regular rate and rhythm, no murmur rubs or gallops Lungs: Clear to auscultation bilaterally. Normal effort Abdomen: Soft/nontender/nondistended. No hepatosplenomegaly Extremities: No clubbing/cyanosis. Right leg 1+ edema. Right heel scarred ulcer, slightly tender. Does not appear overtly inflamed or purulent. Behavior: Appropriate, cooperative Discharge Data Allergies Allergy/AdvReac Type Severity Reaction Status Date / Time Sulfa (Sulfonamide Allergy Severe ANAPHYLAXIS; Verified 11/29/22 19:37 Antibiotics) TAKES AMARYL W/O REACTION cephalexin [From Keflex] Allergy Intermediate Headahce; Verified 11/29/22 19:37 Nausea; Rash nystatin Allergy Intermediate Wheezing Verified 11/29/22 19:37 amoxicillin [From Augmentin] Allergy Unknown CAN'T Verified 11/29/22 19:37 REMEMBER clavulanic acid Allergy Unknown CAN'T Verified 11/29/22 19:37 [From Augmentin] REMEMBER thyroid, pork Allergy Unknown "ALL Verified 11/29/22 19:37 THYROID AGENTS"-PT UNSURE OF REACTION Cephalosporins AdvReac Intermediate KEFLEX Verified 11/29/22 19:37 ALLERGY -NAUSEA Consultations 11/29/22 21:47 ED Decision to Admit Stat 12/02/22 14:51 Consult Nephrology Routine 12/06/22 08:11 Consult [facility] documentation specialist Routine Ordered Studies 11/29/22 18:27 CT Abd and Pelvis [CT abd pelvis IV con only] Stat 11/30/22 00:42 US venous doppler LE RT Urgent Hospital Course (1) Urinary retention: Urinary retention/urinary tract infection- Marked bladder distention noted on CT Urine culture growing alpha strep, not Enterococcus Completed antibiotic course with Augmentin Urinary retention resolved. Gilliam catheter removed. Patient voiding spontaneously. (2) Acute UTI: See above (3) Abdominal pain: Secondary to urinary retention and UTI Resolved (4) Weakness: Consulted PT/OT. Case management on board Per PT/OT patient can go home with home health services. (5) Congestive heart failure: Right lower extremity edema with stage I right heel ulcer- Right lower extremity venous duplex was negative for DVT. Question whether there may be some compressive lesion in the pelvis Discussed use of compression gear and compression pumps since there is no DVT and no obvious source of obstruction upstream Patient felt like she is reaccumulating fluid in her belly and also in her ankles, right more than left. She is not overtly volume overloaded at this time. Not short of breath. Not hypoxic. Nephrology was involved and had started tolvaptan. Sodium improved. Creatinine stable at 1.8. Given her home dose of Lasix 40 mg on 12/05 Sodium fairly stable Creatinine fairly stable as well Discharge today Follow-up with nephrology outpatient (6) COPD (chronic obstructive pulmonary disease): Continue usual inhalers No acute exacerbation at this time (7) CAD (coronary artery disease): Continue simvastatin (8) Atrial fibrillation: Continue apixaban, carvedilol (9) Chronic kidney disease, stage IV (severe): Creatinine down to 1.9 today Follows civil cad designer outpatient Sodium improved to 134 with tolvaptan Plant Buyer on board for hyponatremia and slightly worsened creatinine Treated the patient with tolvaptan to bring up sodium Resumed Lasix today. Continue Lasix as needed (10) Diabetes mellitus, type 2: Hold glargine Placed on Accu-Cheks with NovoLog SSI (11) Depression: (12) Pulmonary HTN: (13) On home oxygen therapy: (14) Pressure ulcer of right heel, stage 2: Wound care per nursing Ulcer is slightly painful Right foot x-ray was negative for osteomyelitis No leukocytosis No fever Follow-up with podiatry outpatient Plan Discharge today Spoke to daughter on the phone today 12/06 Total Time Total Time Spent Total Time Spent (In Minutes): 35 Discharge Plan Discharge Items Patient Disposition: Home - Home Health Services Reason For Visit: UTI, URINARY RETENTION, RLE EDEMA Discharge Diagnosis: urinary retention related to UTI low sodium acute kidney failure on chronic kidney disease Activity: Resume your previous activity Non-emergency contact: Primary Care Provider Call non-emergency contact if: you have any medication questions and your symptoms worsen Follow-up/Referrals: Jeyson Peña MD [Primary Care Provider] - Diet: Heart Healthy Addtl Attending Provider Instructions: Advised to follow-up with PCP in 1 week Advised to follow-up with podiatry in 2 weeks Advised to follow-up with civil cad designer in 2 weeks Pending Studies at Discharge: No Stand-Alone Forms: My [facility] [address] [facility], Smoking Cessation Medications and DC Order Prescriptions: Continued (DME) lancets [TechLITE Lancets] 30 gauge misc See Rx Instructions .ROUTE .MEDSUPPLY Qty: 400 3RF Rx Instructions: test 4 times daily albuterol sulfate 90 mcg/actuation HFA aerosol inhaler 2 puff inhalation Q6H PRN (Reason: shortness of breath or wheezing) Qty: 3 1RF (DME) Portable Oxygen Misc See Rx Instructions .Route Qty: 1 0RF Rx Instructions: Portable o2 concentrator -2LPM via nasal cannula (DME) pen needle, diabetic [BD Ultra-Fine Vielka Pen Needle] 32 gauge x 5/32" needle See Dose Instructions .ROUTE .MEDSUPPLY Qty: 400 3RF Rx Instructions: use 4 pen needles daily insulin aspart U-100 [Novolog FlexPen U-100 Insulin] 100 unit/mL (3 mL) insulin pen 12 - 20 unit SUBCUT TID MDD 60 units 90 Days Qty: 60 3RF insulin glargine [Lantus Solostar U-100 Insulin] 100 unit/mL (3 mL) insulin pen 8 unit subcut HS Qty: 1 2RF budesonide-formoterol [Symbicort] 160-4.5 mcg/actuation HFA aerosol inhaler 2 puff inhalation BID Qty: 3 2RF carvedilol 3.125 mg tablet 3.125 mg PO BID Qty: 180 3RF (DME) FreeStyle Jelly 2 Sensor Kit See Rx Instructions .Route Rx Instructions: As directed (DME) FreeStyle Jelly 2 [place] Misc See Rx Instructions .Route Rx Instructions: As directed Eliquis 2.5 mg tablet 2.5 mg PO BID Qty: 180 3RF Saccharomyces boulardii [Digest Probiotic (S.boulardii)] 250 mg capsule 250 mg PO DAILY (DME) OneTouch Ultra Test Strip See Rx Instructions .Route Rx Instructions: Test blood sugar qID gabapentin 300 mg capsule 300 mg PO BID Qty: 60 5RF Rx Instructions: note lower dose famotidine [Acid Ship Unloader (famotidine)] 20 mg tablet 20 mg PO HS Qty: 30 6RF Patient Comments: PT STATES NOT TAKING NOW allopurinol 100 mg tablet 100 mg PO QAM Qty: 90 3RF furosemide 40 mg tablet 40 mg PO DAILY PRN (Reason: Edema) Qty: 90 1RF levalbuterol HCl 1.25 mg/3 mL solution for nebulization 1.25 mg INH Q4H PRN (Reason: shortness of breath or wheezing) Qty: 90 3RF simvastatin 40 mg tablet 40 mg PO HS Qty: 90 3RF glucosamine-chondroitin [Osteo Bi-Flex] 250-200 mg Tablet 2 tab PO BID ferrous sulfate 325 mg (65 mg iron) tablet 325 mg PO QAM travoprost [Travatan Z] 0.004 % Drops 1 drp OPB HS Spiriva with HandiHaler 18 mcg capsule, w/inhalation device 1 cap INHALATION QAM calcium carbonate [Calcium 600] 600 mg calcium (1,500 mg) tablet 600 mg PO QAM pantoprazole 40 mg tablet,delayed release (DR/EC) 40 mg PO BID Discharge Orders: Discharge Order (Routine); Ordered 12/06/22 Ordered By: Kinga Banerjee/Other Patient Handouts: A1C, Managing Type 2 Diabetes Admission Data Admit Date/Time: 11/29/22 22:37 Attending Provider: Kinga Wright Admit Provider: Wayne Oropeza Primary Care Provider: Jeyson Peña Other Providers: Wayne Oropeza ; Michael Gleason Other Interventions: Discharge Summary Assessment (RN) Last Done: 12/06/22 13:00 Coding Level of Care Code 84755 INP/OBS DISCH >30 MIN Diagnoses Urinary retention R33.9 Acute UTI N39.0 Abdominal pain R10.9 Weakness R53.1 Congestive heart failure I50.9 COPD (chronic obstructive pulmonary disease) J44.9 CAD (coronary artery disease) I25.10 Atrial fibrillation I48.91 Chronic kidney disease, stage IV (severe) N18.4 Diabetes mellitus, type 2 E11.9 Depression F32.9 Pulmonary HTN I27.20 On home oxygen therapy Z99.81 Pressure ulcer of right heel, stage 2 L89.612
--- NOTE | 2022-12-06 13:27 | Nephrology Progress Note ---
Date of Service December 06, 2022 Assessment & Plan (1) Hyponatremia: Plan: Chronic. Asymptomatic. Encourage oral solute intake. Diuretics held. Volume status acceptable.Follow up with Dr. Gleason next week, as scheduled. (2) KALEE (acute kidney injury): Plan: Volume mediated and prerenal in setting of diuretics. Creatinine stable at 1.9 mg/dL. Electrolytes normal. Kidney function stable. Close outpatient follow up with Dr. Gleason. (3) Urinary retention: Plan: Appears to have resolved. No complaints at this time. (4) Acute UTI: Plan: Remains on Augmentin. No urinary symptoms at this time. (5) Chronic kidney disease, stage IV (severe): Plan: Baseline creatinine ~1.9 mg/dL. Followed in the outpatient nephrology clinic. Medications are appropriately dosed for kidney dysfunction. Resume furosemide per home RX of 40 mg daily PRN. Discussed diuretic use with Amaya this AM. Admission and Anticipated Discharge Date Admission Date: November 29, 2022 Subjective No acute events overnight. No complaints this AM. Discharge plan reviewed with patient. Review of Systems Review of Systems: All systems reviewed & are unremarkable except as noted in HPI & below Physical Exam Constitutional: well developed and + thin; no acute distress Eyes: + anicteric sclerae; pupils not irregular ENMT: Mouth: no oral mucosal abnormality and oral mucous membranes not dry Neck: normal visual inspection and trachea midline Respiratory: normal respiratory effort Auscultation: lungs clear to auscultation bilaterally Cardiovascular: Rate/Rhythm: + bradycardic Heart Sounds: normal S1 and normal S2 Extremities: + pedal edema (R>L) Musculoskeletal: Extremities: no cyanosis and no clubbing Skin: + turgor decreased; no jaundice Neurologic: Motor/Sensory: no tremor and no asterixis Psychiatric: Orientation: alert and oriented x 3 Results & Data Vital Signs (Past 12 Hours) Vital Signs Temp Pulse Resp BP BP Pulse Ox O2 Del Method 12/06/22 13:00 36.4 C L 56 L 16 162/83 H 129/73 100 12/06/22 07:54 36.4 C L 56 L 16 162/83 H 100 Nasal Cannula O2 Flow Rate 12/06/22 13:00 12/06/22 07:54 2 Laboratory Results Laboratory Results - last 24 hr 12/05/22 12/05/22 12/06/22 17:08 20:24 06:24 Sodium 134 L Potassium 4.8 Chloride 97 L Carbon Dioxide 30 Anion Gap 7 BUN 46 H Creatinine 1.94 H Est Cr Clr Drug Dosing 15.6 Est GFR ( Amer) 26.1 Est GFR (Non-Af Amer) 22.6 BUN/Creatinine Ratio 23.7 H Glucose 125 H POC Glucose 139 H 196 H Calcium 8.9 12/06/22 12/06/22 08:10 11:53 Sodium Potassium Chloride Carbon Dioxide Anion Gap BUN Creatinine Est Cr Clr Drug Dosing Est GFR ( Amer) Est GFR (Non-Af Amer) BUN/Creatinine Ratio Glucose POC Glucose 123 H 182 H Calcium PG Care Time/CCT Total # of Minutes Spent Total Time Spent with Patient: Total time spent is greater than 50% in coordination of care (as documented) at patient's floor/unit and/or counseling patient: Coding Level of Care Code 15368 SUB INP/OBS CARE 3/50MIN Diagnoses Hyponatremia E87.1 KALEE (acute kidney injury) N17.9 Urinary retention R33.9 Acute UTI N39.0 Chronic kidney disease, stage IV (severe) N18.4
== END 2022-12-06 15:29 | disposition home health service (06) | DRG 690 ==
LOC: ED 17:44 → 3N 22:37 → SUATTDRO 22:37 → 3N 23:16